=== PATIENT | female | born 1980 | race Caucasian/White ===

== ENCOUNTER 2023-06-01 10:03 | Outpatient (AMB) | payer MEDICAID, SELFPAY ==
--- NOTE | 2023-06-01 10:26 | MHC.OFFVIS ---
Intake Vital Signs 06/01/23 10:27 Weight 281 lb 4 oz BP 141/90 H Blood Pressure Location Lt brachial Position Sitting Respiration 20 Pulse 75 Pulse Source Pulse Oximeter Pulse Oximetry (%) 98 Oxygen Delivery Method Room Air Intake Visit Reasons: CHRONIC PAIN SYNDROME HPI HPI Comments History of Present Illness Details Bria is a very pleasant 42-year-old female who presents the office today for evaluation management of her chronic pain syndrome. She reports today that her most significant pain is in her neck and she would like to focus on this area. Formally under the care of from her pain management in [place], recently moved to this area and is now reestablishing care with providers. Had been undergoing physical therapy which she felt was helping but had to stop due to the move. She would like to reestablish. She had been on chronic opioid therapy, that has been since discontinued. She has currently not taking any medications for the pain. She is tried topical medications, [id number] medications, gabapentin, Lyrica, tizanidine all without improvement. She does states that muscle relaxers have helped her in the past and she would be willing to retry them. She is unable to take nonsteroidal anti-inflammatory medication because she is currently on Coumadin for AFib. She reports having an MRI approximately 6 months ago at [facility], results have been requested but are not available for review today. Patient endorses bilateral hand paresthesias, left isolated to the hand on the right she reports it starts just above the elbow and goes into the hand. Right arm paresthesias are worse with right lateral flexion of the neck. She reports feeling some right hand weakness and states that she does drop things from the hand. She has not been to see a neurosurgeon. Most recent EMG was approximately 5 years ago. Pain is worse with flexion and improves with extension. Pain today is rated as 7/10, constant, worse in the evenings and at night. In terms of muscle damage condition is described as aching, spasming, stabbing, sharp, shooting, tiring, exhausting, cramping, numb, tingling, pins and needles. Pain is negatively impacting patient's enjoyment of life, general activity, mood, normal work, recreational activities, relationships with people, sleeping and walking. Patient is currently on anticoagulants, Coumadin. She denies implantable devices Denies tobacco or alcohol use Currently using THC. 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 Answers questions appropriately. Fully engaged in examination. Skin: warm, dry, intact HEENT: Normocephalic. Hearing intact. Cardiac: External chest normal in appearance. Respiratory: No cough, audible wheezing or stridor. Abdomen: without gross distension. MS: No obvious swelling or deformities. Neurological: Oriented to person, place, time and situation. Thought process intact. Ambulates with the use the cane Psychiatric: Appropriate mood and affect. Good judgment and insight. Cervical Spine: Visible inspection without gross abnormality Moderate tenderness throughout bilateral upper and middle trapezius muscles, right greater than left. Tender to palpation over paraspinal muscles Tender to palpation over cervical vertebrae Patient with decreased cervical ROM in all planes with moderate pain upon lateral rotation and flexion, some improvement in pain with extension.. Spurling compression test negative. Elvey's tension test positive on the right. Lhermitte's test positive on the right BUE strength 5/5 DTR symmetrical and intact bilaterally. 2+ radial pulses. Results Reviewed Results Reviewed: Recent MRI has been requested for review Assessment & Plan Assessment & Plan (1) Chronic pain syndrome: Code(s): G89.4 - Chronic pain syndrome (2) Lumbosacral radiculopathy: Code(s): M54.17 - Radiculopathy, lumbosacral region (3) Cervical radiculopathy: Code(s): M54.12 - Radiculopathy, cervical region (4) Cervicalgia: Code(s): M54.2 - Cervicalgia (5) Myofascial neck pain: Code(s): M54.2 - Cervicalgia Plan Bria is a very pleasant 42-year-old female who presented to the office today for evaluation management of her chronic pain. She would like today's focus to be on her neck pain X-ray cervical spine with flexion-extension ordered for further eval Results of recent MRI have been requested for review Order placed for PT eval and treat Order placed for EMG to evaluate for the reported paresthesia of bilateral upper extremities Will trial methocarbamol 500 mg p.o. t.i.d. as needed All questions and concerns were answered, patient agrees with the plan. Patient will follow up in the office after 3-4 weeks of physical therapy to evaluate response, sooner if needed. Orders: Orders XR cervical spine w flex/ext Today M54.2 - Cervicalgia NE electromyogram (EMG) Today R20.2 - Paresthesia of skin PT Evaluation and Treatment Today M54.2 - Cervicalgia Medications: New methocarbamol Discontinue use of Cyclobenzaprine No driving while taking this medication. Do no take with alcohol or other CHILD CARE NURSE Depressants 500 mg PO TID PRN 90 tabs 2RF muscle spasm Coding Level of Care Code New Pt Level 4 (27920) Diagnoses Chronic pain syndrome G89.4 Lumbosacral radiculopathy M54.17 Cervical radiculopathy M54.12 Cervicalgia M54.2 Myofascial neck pain M54.2
[2023-06-01 10:27] VITALS: BP 141/90; PULSE 75; RESP 20; O2SAT 98
== END 2023-06-01 10:46 | disposition home or self-care (01) ==
PROVIDERS: PCP Student in an Organized Health Care Education/Training Program; Referring Provider Student in an Organized Health Care Education/Training Program; Visit Provider Registered Nurse Emergency
DX: G89.4 Chronic pain syndrome (principal); M54.17 Radiculopathy, lumbosacral region; M54.12 Radiculopathy, cervical region; M54.2 Cervicalgia
CPT/HCPCS: 99204

== ENCOUNTER → 2023-06-01 10:03 | Outpatient (BNVA) | payer MEDICAID, SELFPAY | PROVIDERS: PCP Student in an Organized Health Care Education/Training Program; Referring Provider Student in an Organized Health Care Education/Training Program; Visit Provider Registered Nurse Emergency | DX: G89.4 Chronic pain syndrome (principal); M54.17 Radiculopathy, lumbosacral region; M54.12 Radiculopathy, cervical region; I48.91 Unspecified atrial fibrillation; Z79.01 Long term (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 | CPT/HCPCS: 99212 ==

== ENCOUNTER 2023-06-20 13:01 | Outpatient (REF) | payer MEDICAID, SELFPAY ==
--- NOTE | 2023-06-20 13:07 | EMG_ITS ---
Chief complaint: Neck pain, numbness in both hands Reason for referral: Evaluate for radiculopathy versus Carpal Tunnel Syndrome Referred by: Mckayla Lorenzo NP Procedure done: Bilateral upper extremities NCS/EMG Precautions and/or limitations: On warfarin The limb temperature was monitored continuously and remained between 32-36 degrees C during the performance of the NCS. Nerve Conduction Studies Anti Sensory Summary Table ?Stim Site NR Onset (ms) Norm Onset (ms) Peak (ms) Norm Peak (ms) O-P Amp (?V) Norm O-P Amp Site1 Site2 Delta-0 (ms) Dist (cm) Alok (m/s) Norm Alok (m/s) Left Median Anti Sensory (2nd Digit) Wrist ? 5.5 6.2 <3.6 1.3 >10 Wrist 2nd Digit 5.5 14.0 25 Right Median Anti Sensory (2nd Digit) Wrist ? 5.0 5.7 <3.6 6.1 >10 Wrist 2nd Digit 5.0 14.0 28 Right Radial Anti Sensory (Thumb) Forearm ? 1.5 1.9 <3.1 46.8 Forearm Thumb 1.5 0.0 Left Ulnar Anti Sensory (5th Digit) Wrist ? 2.4 3.2 <3.7 14.6 >15.0 Wrist 5th Digit 2.4 14.0 58 Right Ulnar Anti Sensory (5th Digit) Wrist ? 2.2 2.8 <3.7 19.2 >15.0 Wrist 5th Digit 2.2 14.0 64 Motor Summary Table ?Stim Site NR Onset (ms) Norm Onset (ms) O-P Amp (mV) Norm O-P Amp iAmp (mV) Amp (1st) (%) Site1 Site2 Delta-0 (ms) Dist (cm) Alok (m/s) Norm Alok (m/s) Left Median Motor (Abd Poll Brev) Wrist ? 6.9 <3.9 5.1 >4.5 6.2 100.0 Elbow Wrist 3.6 22.0 61 >45 Elbow ? 10.5 5.1 5.5 100.0 Right Median Motor (Abd Poll Brev) Wrist ? 6.0 <3.9 7.9 >4.5 9.7 100.0 Elbow Wrist 3.9 20.0 51 >45 Elbow ? 9.9 8.3 9.9 105.1 Left Ulnar Motor (Abd Dig Minimi) Wrist ? 2.6 <3.0 10.1 >5 12.1 100.0 B Elbow Wrist 3.0 18.0 60 >45 B Elbow ? 5.6 8.5 9.9 84.2 A Elbow B Elbow 1.9 10.0 53 >45 A Elbow ? 7.5 7.9 9.4 78.2 Right Ulnar Motor (Abd Dig Minimi) Wrist ? 2.5 <3.0 10.4 >5 12.7 100.0 B Elbow Wrist 3.2 19.0 59 >45 B Elbow ? 5.7 11.0 13.5 105.8 A Elbow B Elbow 1.6 10.0 63 >45 A Elbow ? 7.3 10.4 13.1 100.0 EMG ?Side Muscle Nerve Root Ins Act Fibs Psw Amp Dur Poly Recrt Int Pat Comment Right 1stDorInt Ulnar C8-T1 Nml Nml Nml Nml Nml 0 Nml Complete Right FlexCarRad Median C6-7 Nml Nml Nml Nml Nml 0 Nml Complete Right Biceps Musculocut C5-6 Nml Nml Nml Nml Nml 0 Nml Complete Right Triceps Radial C6-7-8 Nml Nml Nml Nml Nml 0 Nml Complete Right Deltoid Axillary C5-6 Nml Nml Nml Nml Nml 0 Nml Complete Left 1stDorInt Ulnar C8-T1 Nml Nml Nml Nml Nml 0 Nml Complete Left FlexCarRad Median C6-7 Nml Nml Nml Nml Nml 0 Nml Complete Left Biceps Musculocut C5-6 Nml Nml Nml Nml Nml 0 Nml Complete Left Triceps Radial C6-7-8 Nml Nml Nml Nml Nml 0 Nml Complete Left Deltoid Axillary C5-6 Nml Nml Nml Nml Nml 0 Nml Complete FINDINGS: Bilateral median motor nerves showed prolonged distal latency, normal amplitude and normal conduction velocity. Bilateral median sensory nerves showed prolonged peak latency and small amplitude. Evidence of possible Jovon Calli anastomosis was seen, which is a normal anatomic variant, left. All other nerves tested were within normal. Concentric needle EMG was performed in selected muscles of the bilateral upper extremities. Study did not reveal signs of electric abnormalities as shown in the table below. IMPRESSION: 1. This is an abnormal study. 2. There is electrodiagnostic evidence for bilateral moderate-severe median neuropathy at the wrist, consistent with carpal tunnel syndrome. 3. There is no electrodiagnostic evidence for ulnar neuropathy, brachial plexopathy, or cervical radiculopathy. 4. Evidence of possible Jovon Calli anastomosis was seen, which is a normal anatomic variant, left. Thank you for your kind referral. Kari Cruz MD, HUMBERTO Board Certified, [place] [employer] and [employer] (ABPMR) Board Certified, [place] Board of Electrodiagnostic Medicine (ABEM) CODIN 79528 x 2 MTDD
[2023-06-20 14:05] LABS: Hematocrit 34.9 % (37.0-47.0); Hemoglobin 10.9 g/dl (12.0-16.0); Mean Corpuscular HGB Conc 31.2 g/dl (31.0-35.0); Mean Corpuscular Hemoglobin 22.8 pg (27.0-33.0); Mean Corpuscular Volume 72.9 fL (80.0-98.0); Mean Platelet Volume 11.5 fL (9.4-12.3); Platelet Count 322 X10*3/uL (160-400); Red Blood Count 4.79 X10*6/uL (4.20-5.50); Red Cell Distribution Width 15.2 % (11.0-16.0); White Blood Count 10.5 X10*3/uL (4.8-10.8)
[2023-06-20 14:12] LABS: Estimated Average Glucose 160 mg/dL; Hemoglobin A1C 152.0625 umol/L; Hemoglobin A1c % 7.2 % (<6.0)
[2023-06-20 14:16] LABS: INTERNATIONAL NORM RATIO 2.3 (0.9-1.1); Prothrombin Time 27.8 SEC (11.1-13.3)
[2023-06-20 14:48] LABS: Alanine Aminotransferase 38 U/L (0-31); Albumin Level 3.9 g/dL (3.5-5.0); Alkaline Phosphatase 68 U/L (39-117); Anion Gap 13 (12-20); Aspartate Amino Transferase 31 U/L (5-31); Bilirubin Total 0.3 mg/dL (0.0-1.0); Blood Urea Nitrogen 17 mg/dL (9-16); Calcium 9.2 mg/dL (8.4-10.2); Carbon Dioxide 22 mmol/L (22-29); Chloride 105 mmol/L (96-108); Estimated Glomerular Filt Rate > 60; Glucose Random 122 mg/dL (60-115); Sodium 136 mmol/L (135-145); TSH reflex Free T4 2.34 uIU/mL (0.32-4.0); Vitamin D 25-OH Total 16.2 ng/mL (>30)
[2023-06-20 15:05] LABS: Folate 9.4 ng/mL (> or = 4.0)
[2023-06-20 16:33] LABS: CT PCR NOT DETECTED (Not Detect.); NG PCR NOT DETECTED (Not Detect.)
[2023-06-20 20:08] LABS: Vitamin B12 501 pg/mL (200-900)
[2023-06-21 04:45] LABS: Syphilis Screen Nonreactive (Nonreactive)
[2023-06-21 05:05] LABS: HBc Num1 0.07 S/CO (0.00-0.79); HBsAGNum1 0.39 S/CO (0.00-0.99); HIV AB/AG Nonreactive (Nonreactive); HIV Num 1 0.06 S/CO (0.00-0.99); Hepatitis B Core Antibody Nonreactive (Nonreactive); Hepatitis B Surface Antigen Negative (Negative); ~HepC Num1 0.14 S/CO (0.00-0.79); ~Hepatitis B Surface Antibody NONREACTIVE (Nonreactive); ~Hepatitis C Antibody Nonreactive (Nonreactive)
== END 2023-06-20 13:02 | disposition home or self-care (01) ==
LOC: HO.NEURO 13:01
PROVIDERS: Student in an Organized Health Care Education/Training Program; Visit Provider Registered Nurse Emergency
DX: R20.2 Paresthesia of skin (principal); I48.0 Paroxysmal atrial fibrillation; Z11.4 Encounter for screening for human immunodeficiency virus [HIV]; Z00.00 Encounter for general adult medical examination without abnormal findings
CPT/HCPCS: 0353U; 80053; 82306; 82607; 82746; 83036; 84443; 85027; 85610; 86704; 86706; 86780; 86803; 87340; 87389; 95886; 95911

== ENCOUNTER → 2023-06-20 13:07 | Outpatient (BNV) | payer MEDICAID, SELFPAY | PROVIDERS: Visit Provider Physical Medicine & Rehabilitation | DX: G56.03 Carpal tunnel syndrome, bilateral upper limbs (principal); G56.13 Other lesions of median nerve, bilateral upper limbs | CPT/HCPCS: 95886; 95911 ==

== ENCOUNTER 2023-06-20 13:10 | Outpatient (REF) | payer MEDICAID, SELFPAY | END 2023-06-20 13:11 | disposition home or self-care (01) | LOC: HO.MAMMO 13:10 | PROVIDERS: Visit Provider Internal Medicine | DX: Z13.89 Encounter for screening for other disorder (principal) ==

== ENCOUNTER 2023-07-05 16:29 | Outpatient (REF) | payer MEDICAID, SELFPAY ==
[2023-07-05 21:54] LABS: Creatinine Urine 178.93 mg/dL; Microalbum/Creatinine Ratio Ur 125.1 ug/mg cr (<30)
== END 2023-07-05 16:30 | disposition home or self-care (01) ==
LOC: HO.HHCLNP 16:29
PROVIDERS: Visit Provider Student in an Organized Health Care Education/Training Program
DX: Z00.00 Encounter for general adult medical examination without abnormal findings (principal)
CPT/HCPCS: 82043; 82570

== ENCOUNTER 2023-08-08 14:50 | Outpatient (AMB) | payer MEDICAID, SELFPAY ==
--- NOTE | 2023-08-08 15:17 | MHC.OFFVIS ---
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 Intake Note: New patient hx afib just moved for [facility] feeling good Hearing Care Professional Required: No Allergies lisinopril Allergy (Mild, Verified 08/08/23 15:32) Cough Medication List - Last Reconciled 08/08/23 by Gallo Ring MD albuterol sulfate 90 mcg/actuation (Ventolin HFA) 2 puffs inhalation Q6H PRN atorvastatin 10 mg PO DAILY bisacodyl 5 mg PO DAILY PRN cholecalciferol (vitamin D3) 50 mcg PO DAILY clonidine HCl 0.2 mg PO BID diltiazem HCl CD 120 mg PO DAILY docusate sodium 100 mg PO BID PRN dulaglutide (Trulicity) 0.75 mg subcut QWEEK ferrous gluconate 324 mg PO 3XW loratadine 10 mg PO DAILY lorazepam 0.5 mg PO QAM losartan 25 mg PO DAILY metoprolol succinate ER 25 mg PO BID omeprazole 20 mg PO DAILY polyethylene glycol 3350 (Gavilax) 17 grams PO DAILY warfarin 1 mg PO DAILY warfarin 2 mg PO DIRECTED HPI Comments Details: Bria is here for consultation regarding atrial fibrillation. Previously followed up at [facility] but she has relocated to this area. Apparently, patient had an episode of atrial fibrillation around 2018 or so. It appears that she underwent cardioversion. Currently, she is on a combination of metoprolol as well as diltiazem. She states she has really has not had any recurrent atrial fibrillation but she does feel some fluttering every so often. Not clear what that is. For anticoagulation, she is on warfarin. There is a history of PCOS/ruptured ovarian follicle and hence it was apparently felt that warfarin might be safer choice as there is availability for reversing agent. Otherwise, history of morbid obesity. She was weighing almost 350 lb in the past when she had the initial atrial fibrillation episode. Subsequently, weight loss surgery and she has lost weight. She still however, the obese side. Many comorbidities. Otherwise, no documented history of coronary disease or myocardial infarction. 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 Social History (Updated 08/08/23 @ 15:35 by AGUILA Waterman) Patient Tobacco Use Status: Never used Tobacco Review of Systems Const Denies chills, Denies fatigue, Denies fever(s), Denies frequent falls, Denies weakness, Denies weight gain and Denies weight loss ENT Denies dizziness Card Denies chest pain, Denies leg edema, Denies lightheadedness, Denies palpitations, Denies dyspnea, Denies dyspnea on exertion, Denies orthopnea and Denies other (loss of consciousness) Resp Denies cough, Denies dyspnea and Denies dyspnea on exertion GI Denies hematochezia and Denies change in stool character Musc Denies abnormal gait, Denies muscle weakness, Denies numbness, Denies radiating pain into limb and Denies tingling Neuro Denies abnormal gait, Denies dizziness, Denies frequent falls, Denies numbness, Denies tingling and Denies weakness Endo Denies fatigue and Denies palpitations Physical Exam Vital Signs: Last Vital Signs Pulse 77 08/08/23 15:29 BP 116/70 08/08/23 15:29 BMI result Body Mass Index 48.1 Const General: comfortable and no acute distress Orientation/consciousness: patient oriented x3 HEENT Other: Unremarkable Head: Yes normal to inspection Neck Neck: Yes normal visual inspection Chest Chest palpation & inspection: normal inspection of the chest Resp Auscultation: clear to auscultation bilaterally Cardio Palpation: normal PMI Heart sounds: S1 normal heart sound present, S2 normal heart sound present, no gallops, no murmurs and no rubs GI Palpation (GI): Soft to palpation Back/Spine/Pelvis Other: unremarkable Skin General skin exam: no rashes or lesions noted Neuro General: patient oriented x3 Extrem General: Yes normal to inspection Psych Mental Status: mental status grossly normal Office Procedures EKG Details: EKG with sinus rhythm at 77/Min; no significant ST-T changes; [place] [id number], Complete Assessment & Plan Assessment & Plan (1) PAF (paroxysmal atrial fibrillation): Code(s): I48.0 - Paroxysmal atrial fibrillation Category: Medical (2) Morbid (severe) obesity due to excess calories: Code(s): E66.01 - Morbid (severe) obesity due to excess calories Category: Medical (3) ANGELA (obstructive sleep apnea): Code(s): G47.33 - Obstructive sleep apnea (adult) (pediatric) Category: Medical Plan Patient with many comorbidities, episode of paroxysmal atrial fibrillation, cardioverted around 6 years ago. She can remain on beta-blockers/diltiazem as she is mostly symptom free. We will check an echocardiogram for cardiac function. There is mention of LVH and prior documentation. As she still has some fluttering, we will check a Holter to see if there is any ectopy or other findings to account for the symptoms. Will also request records from [facility]. Follow-up in a few weeks' time. Orders: Orders CA echo transthoracic complete Today I48.0 - Paroxysmal atrial fibrillation ECG 7 day holter monitor Today I48.0 - Paroxysmal atrial fibrillation, R00.2 - Palpitations Coding Level of Care Code New Pt Level 4 (50369) Diagnoses PAF (paroxysmal atrial fibrillation) I48.0 Morbid (severe) obesity due to excess calories E66.01 ANGELA (obstructive sleep apnea) G47.33 CPT Codes EKG - CPT: 73512-[id number], Complete ([id number])
[2023-08-08 15:29] VITALS: BP 116/70; PULSE 77; BMI 48.1
== END 2023-08-08 16:03 | disposition home or self-care (01) ==
PROVIDERS: PCP Student in an Organized Health Care Education/Training Program; Referring Provider Student in an Organized Health Care Education/Training Program; Visit Provider Internal Medicine
DX: I48.0 Paroxysmal atrial fibrillation (principal); E66.01 Morbid (severe) obesity due to excess calories; G47.33 Obstructive sleep apnea (adult) (pediatric)
CPT/HCPCS: 93010; 99204

== ENCOUNTER → 2023-08-08 14:50 | Outpatient (BNVA) | payer MEDICAID, SELFPAY | PROVIDERS: PCP Student in an Organized Health Care Education/Training Program; Visit Provider Internal Medicine | DX: I48.0 Paroxysmal atrial fibrillation (principal); E66.01 Morbid (severe) obesity due to excess calories; G47.33 Obstructive sleep apnea (adult) (pediatric); Z68.42 Body mass index [BMI] 45.0-49.9, adult | CPT/HCPCS: 93005; 99202 ==

== ENCOUNTER 2023-08-10 10:44 | Outpatient (REF) | payer MEDICAID, SELFPAY ==
--- NOTE | ~2023-08-10 | MM_ITS ---
EXAMINATION: MM SCREENING DIGITAL BREAST TOMOSYNTHESIS, BILATERAL CLINICAL INFORMATION: Screening. Asymptomatic. COMPARISON: Mammography: This is a baseline examination. TECHNIQUE: Digital breast tomosynthesis is performed in both the craniocaudal and mediolateral oblique views along with computer-aided detection (CAD). Synthesized 2D images are generated from the tomosynthesis. FINDINGS: The breasts are almost entirely fatty (ACR BI-RADS breast composition Category a). There are no significant masses, abnormal calcifications, or other abnormalities. MM/MM tomosynthesis screening BI IMPRESSION: No mammographic evidence of malignancy. ASSESSMENT: BI-RADS BI-RADS 1 - Negative RECOMMENDATION: Routine annual mammography screening. 1 year F/U This examination should not preclude the clinical evaluation of a suspicious palpable abnormality. This patient's information was entered into a reminder system with a target due date for their next mammogram.
== END 2023-08-10 10:45 | disposition home or self-care (01) ==
LOC: HO.MAMMO 10:44
PROVIDERS: PCP Student in an Organized Health Care Education/Training Program; Visit Provider Internal Medicine
DX: Z12.31 Encounter for screening mammogram for malignant neoplasm of breast (principal)
CPT/HCPCS: 77063; 77067

== ENCOUNTER → 2023-08-10 10:45 | Outpatient (BNV) | payer MEDICAID, SELFPAY | PROVIDERS: PCP Student in an Organized Health Care Education/Training Program; Visit Provider Radiology Diagnostic Radiology | DX: Z12.31 Encounter for screening mammogram for malignant neoplasm of breast (principal) | CPT/HCPCS: 77063; 77067 ==

== ENCOUNTER → 2023-08-29 13:09 | Outpatient (REF) | payer MEDICAID, SELFPAY ==
--- NOTE | 2023-08-29 13:12 | CA_ITS ---
Transthoracic Echocardiogram Patient (Last, First, Middle): Bria Nevarez N Gender: Female Date of : 1980 Age: 42 Procedure Date: 08/29/2023 Procedure Type: Transthoracic Echocardiogram Location: OP Height: 162.56 cm Weight: 127.01 kg BSA: 2.26 m2 Heart Rate: bpm BP: 140 / 80 mmHg Test Car Driver: TO Referring MD: Gallo Ring MD Coding File Clerk: Garrison Chapman MD Symptoms: I48.0 - Paroxysmal atrial fibrillation Study Quality: Fair/Contrast ECG Rhythm: Sinus Conclusions: - 1. Normal LV ejection fraction of 60 65% with mild asymmetric septal hypertrophy with impaired relaxation filling pattern 2. Moderate mitral calcification with normal cardiac valvular Dopplers 3. No gross pericardial effusion Findings Procedure Information Contrast agent, definity, is being given per protocol without apparent complications. Left Ventricle Normal left ventricular size, thickness, and systolic function. The visually estimated ejection fraction is between 60-65%. Spectral Doppler is indicative of an impaired relaxation filling pattern. E/E prime ratio is between 8 and 15 consistent with indeterminate filling pressures. There is mild septal asymmetric hypertrophy. Right Ventricle Normal right ventricular cavity size and systolic function. Atria The left atrium is likely dilated. There is no evidence of interatrial shunt. The right atrium is normal in size. Aortic Valve Normal aortic valve structure and function. There is no aortic valve stenosis. There is no aortic valve regurgitation. Mitral Valve There is mild anterior and moderate posterior mitral leaflet thickening. There is moderate mitral annular calcification. There is trace mitral valve regurgitation. There is no mitral valve stenosis. Pulmonic Valve The pulmonic valve was not well visualized. Tricuspid Valve Likely normal tricuspid valve structure and function. Tricuspid regurgitation envelope is inadequate for calculation of right ventricular systolic pressure. Normal right atrial pressure. Great Vessels The pulmonary artery was not well visualized. There is no dilatation of the ascending aorta measuring 3.30 cm. Small plaque is seen in the sino tubular ridge. Venous The inferior vena cava is normal in size and collapses greater than 50% with inspiration. Pericardium/Pleural There is no evidence of pericardial effusion. Prior Study Comparison No prior study available for comparison. Measurements 2D Linear Measurements IVSd: 1.37 0.6-0.9/0.6-1.0 cm LVIDd: 4.30 3.9-5.3/4.2-5.9 cm LVIDd Index: 1.90 2.4-3.2/2.2-3.1 cm/m2 LVIDs: 2.72 2.0-3.6 cm LVPWd: 1.06 0.7-1.1 cm LA Diam: 3.90 2.7-3.8/3.0-4.0 cm LAIDs Index: 1.73 1.5-2.3 cm/m2 LV Mass: 234.33 67-162/88-224 g LV Mass Index: 103.68 43-95/49-115 g/m2 LVOT Diam: 2.30 3.0+(-)1.3 cm Mitral Valve MV VTI: 0.29 MV Pk Alok: 0.95 MV Mn Alok: 0.65 MV Pk Grad: 4.00 MV Mn Grad: 2.00 MV Pk E: 0.67 MV PK A: 0.86 MV Decel Time: 203.00 E/A: 0.80 E'Lateral: 8.27 E'Medial: 4.24 E/E' Med: 15.80 E/E' Lat: 8.10 PHT: 60.00 MVA PHT: 3.67 MVA Continuity: 4.19 Decel Schleicher: 3.29 Aortic Valve AoV Pk Alok: 1.43 AoV Mn Alok: 1.07 AoV VTI: 0.33 AoV Pk Grad: 8.00 Aov Mn Grad: 5.00 HANNA Cont.VTI: 3.67 LVOT LVOT Pk Alok: 1.53 LVOT Mn Alok: 0.97 LVOT VTI: 0.29 LVOT Pk Grad: 9.00 LVOT Mn Grad: 5.00 LVOT Diam: 2.30 LVOT Area: 4.15 Diastolic Function MV Pk E: 0.67 MV Pk A: 0.86 E/A: 0.80 E'Medial: 4.24 E/E' Med: 15.80 E' Laterial: 8.27 E/E' Lat: 8.10 Right Ventricle TAPSE (mm): 24.40 TVS' Alok: 11.70 Tricuspid Valve TR Pk Alok: 2.21 TR Pk Grad: 20.00 Great Vessels Aorta Sinus of Valsalva: 3.06 2.0-3.[address] Ridge: 2.36 1.7-3.4 cm Ao Asc: 3.30 2.1-3.4 cm Updated in Other Vendor System with Status of Final Garrison Chapman MD electronically signed on 08/30/2023 8:33:07 AM with status of Final
--- NOTE | 2023-08-29 13:12 | HM_ITS ---
* Total monitoring time 2 days. * Underlying rhythm is sinus with an average rate of 82/Min. About 13% of the time, rate > 100/Min. * Rare supraventricular ectopy. * Rare ventricular ectopy. * No significant pauses or AV blocks. * No patient markers or diary events. MTDD
== END ==
LOC: HO.CARD 13:09
PROVIDERS: PCP Student in an Organized Health Care Education/Training Program; Visit Provider Internal Medicine
DX: R00.2 Palpitations (principal); I48.0 Paroxysmal atrial fibrillation
CPT/HCPCS: 93242; 93306; Q9957

== ENCOUNTER → 2023-08-29 13:12 | Outpatient (BNV) | payer MEDICAID, SELFPAY | PROVIDERS: PCP Student in an Organized Health Care Education/Training Program; Visit Provider Internal Medicine Cardiovascular Disease | DX: I49.3 Ventricular premature depolarization (principal) | CPT/HCPCS: 93227; 93306 ==

== ENCOUNTER 2023-08-30 14:00 | Outpatient (RCR) | payer MEDICAID, SELFPAY ==
--- NOTE | 2023-08-08 14:09 | MHC.PT.EP ---
[facility] [place] Office [place] Office [place] Office [address] Yumiko Sena [address] [phone] F: [phone] F: [phone] F: [phone] F: [phone] Physical Therapy Plan of Care Date of Evaluation: 08/08/23 Date of Surgery: n/a Diagnosis: cervicalgia myofascial neck pain Assessment: Patient is a 42 year old female presenting to PT with complaints of pain in her neck. Pt reports onset of pain began 1 year ago due to tripping on a loose floor board. She presents today with impairments in pain, cervical ROM, posture, tenderness to palpation. Pt's current occupation is none, with baseline physical activities including ADLs. Pt expresses half-way goal of reducing pain, and is motivated to work towards this in PT. Clinical presentation today is most consistent with signs and sx associated with neck pain and pt will benefit from skilled PT 2 week x 4 weeks to address the following problems and impairments noted upon evaluation: pain, cervical ROM, posture, tenderness to palpation. These problems limit the patient with the following functional activities: ADLs. The prescribed treatment plan of care is medically necessary. Co-morbidities of afib on coumadin and DM were identified and taken into considerations of plan of care. Pt was educated on HEP, role of PT, prognosis, POC. Frequency and Duration: The patient will be seen 2 x week x 4 weeks Short Term Goals: Pt will demonstrate improved cervical ROM in available range to be with minimal to no pain in 2 weeks. Pt will require min to no cues for posture throughout session in 2 weeks when completing exercises. Pt will demonstrate pain at rest to <5/10 in 2 weeks for improved QOL. Clinic Office Manager Goals: Pt will demonstrate improved NDI score by 10% in 4 weeks for improved functional mobility. Pt will demonstrate improved ability to complete ADLs with min to no pain in 4 weeks for return to PLOF. Treatment Plan: Modalities to reduce pain, spasms and effusion. Manual therapy to restore motion and function. Therapeutic exercise to improve strength and flexibility. Neuromuscular re-education for posture and balance. Therapeutic activities to return to functional activities of daily living. Electronically signed by: Aisha Ezequiel, PT, DPT, ATC Please sign and return to therapist. Thank you for your referral.
--- NOTE | 2023-10-02 08:30 | MHC.PT.DC ---
[facility] [place] Office [place] [facility] [place] Office [address] Yumiko Sena [address] [facility] [phone] F: [phone] F: [phone] F: [phone] F: [phone] Physical Therapy Discharge Report Diagnosis: cervicalgia myofascial neck pain Date of Surgery: n/a Date of Evaluation: 08/08/23 Date of Discharge: 10/02/23 Treatments to Date: 3 Cancellations to Date: 1 No Shows to Date: 1 Discharge Status: Visit Non-compliance Discharge Summary: Pt has not returned to skilled PT in >30 days and therefore to be d/c. Electronically signed by: Aisha Nieves, PT, DPT, ATC Please sign and return to therapist. Thank you for your referral.
== END 2023-10-02 08:30 | disposition home or self-care (01) ==
LOC: HO.PTCHIC 14:00
PROVIDERS: PCP Student in an Organized Health Care Education/Training Program; Visit Provider Registered Nurse Emergency
DX: M54.2 Cervicalgia (principal)
CPT/HCPCS: 97110; 97162

== ENCOUNTER 2023-08-31 13:14 | Outpatient (AMB) | payer MEDICAID, SELFPAY ==
[2023-08-31 13:15] VITALS: BP 112/55; BMI 48.1
--- NOTE | 2023-08-31 13:15 | MHC.OFFVIS ---
Vital Signs 08/31/23 13:15 Height 5 ft 4 in Weight 280 lb BMI 48.1 BP 112/55 L Blood Pressure Location Rt brachial Position Sitting Intake Visit Reasons: CHRONIC PAIN SYDROME Allergies lisinopril Allergy (Mild, Verified 08/08/23 15:32) Cough HPI Comments Details: Patient presents back to the office today for follow up neck pain. EMG results reviewed, results as per below MRI CS reviewed, results as per below Patient reports no change in her spasms with methocarbamol. Reports she has tried ?all? muscle relaxers in the past, none have provided relief. She finds some relief with THC, has her medical marijuana card. Currently going to physical therapy, has been attending for 3-4 weeks. States does not feel like it is helping and sometimes feels even worse She is not interested in acupuncture or injections at this time. Has an aversion to needles. Would be willing to try massage, unsure if this is covered by her insurance. She has never tried a TENS unit Tried gabapentin in the past but states did not feel any relief. Was not on it long enough for them to increase dose to try and reach therapeutic effect. She would be willing to retry. Prior: Bria is a very pleasant 42-year-old female who presents the office today for evaluation management of her chronic pain syndrome. She reports today that her most significant pain is in her neck and she would like to focus on this area. Formally under the care of from her pain management in [place], recently moved to this area and is now reestablishing care with providers. Had been undergoing physical therapy which she felt was helping but had to stop due to the move. She would like to reestablish. She had been on chronic opioid therapy, that has been since discontinued. She has currently not taking any medications for the pain. She is tried topical medications, [id number] medications, gabapentin, Lyrica, tizanidine all without improvement. She does states that muscle relaxers have helped her in the past and she would be willing to retry them. She is unable to take nonsteroidal anti-inflammatory medication because she is currently on Coumadin for AFib. She reports having an MRI approximately 6 months ago at [facility], results have been requested but are not available for review today. Patient endorses bilateral hand paresthesias, left isolated to the hand on the right she reports it starts just above the elbow and goes into the hand. Right arm paresthesias are worse with right lateral flexion of the neck. She reports feeling some right hand weakness and states that she does drop things from the hand. She has not been to see a neurosurgeon. Most recent EMG was approximately 5 years ago. Pain is worse with flexion and improves with extension. Pain today is rated as 7/10, constant, worse in the evenings and at night. In terms of muscle damage condition is described as aching, spasming, stabbing, sharp, shooting, tiring, exhausting, cramping, numb, tingling, pins and needles. Pain is negatively impacting patient's enjoyment of life, general activity, mood, normal work, recreational activities, relationships with people, sleeping and walking. Patient is currently on anticoagulants, Coumadin. She denies implantable devices Denies tobacco or alcohol use Currently using THC. 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 Social History (Updated 08/08/23 @ 15:35 by AGUILA Waterman) Patient Tobacco Use Status: Never used Tobacco Review of Systems Const All systems reviewed & are unremarkable except as noted in HPI and below Physical Exam Vital Signs: Last Vital Signs BP 112/55 L 08/31/23 13:15 BMI result Body Mass Index 48.1 General: awake, alert, oriented. Answers questions appropriately. Fully engaged in examination. Skin: warm, dry, intact HEENT: Normocephalic. Hearing intact. Cardiac: External chest normal in appearance. Respiratory: No cough, audible wheezing or stridor. Abdomen: without gross distension. MS: No obvious swelling or deformities. Neurological: Oriented to person, place, time and situation. Thought process intact. Ambulates with the use the cane Psychiatric: Appropriate mood and affect. Good judgment and insight. Cervical Spine: Moderate tenderness throughout bilateral upper and middle trapezius muscles, right greater than left. Tender to palpation over cervical vertebrae and paraspinal muscles Degree cervical ROM in all planes Results Reviewed Results Reviewed: 06/20/23 EMG FINDINGS: Bilateral median motor nerves showed prolonged distal latency, normal amplitude and normal conduction velocity. Bilateral median sensory nerves showed prolonged peak latency and small amplitude. Evidence of possible Jovon Calli anastomosis was seen, which is a normal anatomic variant, left. All other nerves tested were within normal. Concentric needle EMG was performed in selected muscles of the bilateral upper extremities. Study did not reveal signs of electric abnormalities as shown in the table below. IMPRESSION: 1. This is an abnormal study. 2. There is electrodiagnostic evidence for bilateral moderate-severe median neuropathy at the wrist, consistent with carpal tunnel syndrome. 3. There is no electrodiagnostic evidence for ulnar neuropathy, brachial plexopathy, or cervical radiculopathy. 4. Evidence of possible Jovon Calli anastomosis was seen, which is a normal anatomic variant, left. Assessment & Plan Assessment & Plan (1) Bilateral carpal tunnel syndrome: Code(s): G56.03 - Carpal tunnel syndrome, bilateral upper limbs Category: Medical (2) Chronic pain syndrome: Code(s): G89.4 - Chronic pain syndrome Category: Medical (3) Lumbosacral radiculopathy: Code(s): M54.17 - Radiculopathy, lumbosacral region Category: Medical (4) Cervical radiculopathy: Code(s): M54.12 - Radiculopathy, cervical region Category: Medical (5) Cervicalgia: Code(s): M54.2 - Cervicalgia Category: Medical (6) Myofascial neck pain: Code(s): M54.2 - Cervicalgia Category: Medical Plan EMG reviewed, notable for bilateral carpal tunnel. Referral placed for Dr. Don, orthopedics at [facility] Continue with physical therapy Patient would benefit from referral to massage therapy, she will call her insurance company to discuss if this is a covered service. Patient to contact the office with covered provider and referral will be sent. TENS unit ordered, patient was provided with pamphlet and instructions on use. She has aware that the company will call her to facilitate delivery of the device and supplies Gabapentin 300 mg p.o. as directed. One capsule at bedtime x1 week, then 2 capsules daily x1 week, then increase to 3 capsules daily All questions and concerns were answered, patient agrees with the plan. Patient will follow up in the office in 2 months, sooner if needed. Orders: Referrals Orthopedics Referral G56.03 - Carpal tunnel syndrome, bilateral upper limbs Medications: New gabapentin On capsule daily at bedtime x1 week, then 2 capsules daily x1 week, then increase to 3 capsules daily 300 mg PO TID 90 caps 3RF Coding Level of Care Code Est Pt Level 4 (82150) Diagnoses Bilateral carpal tunnel syndrome G56.03 Chronic pain syndrome G89.4 Lumbosacral radiculopathy M54.17 Cervical radiculopathy M54.12 Cervicalgia M54.2 Myofascial neck pain M54.2
== END 2023-08-31 13:48 | disposition home or self-care (01) ==
PROVIDERS: PCP Student in an Organized Health Care Education/Training Program; Visit Provider Registered Nurse Emergency
DX: G89.4 Chronic pain syndrome (principal); G56.03 Carpal tunnel syndrome, bilateral upper limbs; M54.17 Radiculopathy, lumbosacral region; M54.12 Radiculopathy, cervical region; M54.2 Cervicalgia
CPT/HCPCS: 99214

== ENCOUNTER → 2023-08-31 13:14 | Outpatient (BNVA) | payer MEDICAID, SELFPAY | PROVIDERS: PCP Student in an Organized Health Care Education/Training Program; Visit Provider Registered Nurse Emergency | DX: G56.03 Carpal tunnel syndrome, bilateral upper limbs (principal); M54.17 Radiculopathy, lumbosacral region; M54.12 Radiculopathy, cervical region; M54.2 Cervicalgia; G89.4 Chronic pain syndrome | CPT/HCPCS: 99212 ==

== ENCOUNTER 2023-09-03 13:44 | Outpatient (AMB) | payer MEDICAID, SELFPAY ==
--- NOTE | 2023-08-31 15:55 | MHC.OFFVISCO ---
Intake Vital Signs 09/03/23 15:00 BP 128/80 Blood Pressure Location Lt brachial Position Sitting Pulse 78 Intake Visit Reasons: Anticoagulation Nail Maker Required: No Allergies lisinopril Allergy (Mild, Verified 09/03/23 14:00) Cough Medication List - Last Reconciled 09/03/23 by Candi Stone, RN albuterol sulfate 90 mcg/actuation (Ventolin HFA) 2 puffs inhalation Q6H PRN atorvastatin 10 mg PO DAILY bisacodyl 5 mg PO DAILY PRN cholecalciferol (vitamin D3) 50 mcg PO DAILY clonidine HCl 0.2 mg PO BID diltiazem HCl CD 120 mg PO DAILY docusate sodium 100 mg PO BID PRN dulaglutide (Trulicity) 0.75 mg subcut QWEEK ferrous gluconate 324 mg PO 3XW gabapentin 300 mg PO TID loratadine 10 mg PO DAILY lorazepam 0.5 mg PO QAM losartan 25 mg PO DAILY metoprolol succinate ER 25 mg PO BID omeprazole 20 mg PO DAILY polyethylene glycol 3350 (Gavilax) 17 grams PO DAILY warfarin 1 mg PO DAILY warfarin 2 mg PO DIRECTED Is last menstrual period known: Yes Post menopausal: No Patient : No Nursing Note Pt to [facility] with use of cane for old injury to Left ACL and Lumbar/Sacral nerve injury. This is pt's 1st visit to [facility] Anticoag clinic. History reviewed. Admission assessment completed. [facility] education packet reviewed and given to pt. Questions answered and pt verbalized good understanding of admission information. INR: 3.4 out of therapeutic range of 2-3 Medications and supplements reviewed Pt states she uses CBD daily for pain. Denies any signs and symptoms of bleeding or bruising or clotting. Bleeding, bruising, clotting discussed Nutritional guidance given to have a serving of food from the list that lowers the INR. Food list reviewed and given to pt. Dose: pt's usual dose of 1mg on Mondays and 2mg all other days F/U INR: 1 week Patient verbalizes understanding of instructions given Anti-Coag Initial Assessment Social Hx Patient Tobacco Use Status: Former Tobacco user Smoking packs per day: 0.5 alcohol intake: never Housing: House Housing Other:: [employer] OPER[employer] AT HOME, LIVES WITH BOYFRIEND, SON AND BOYFRIEND'S SON current occupation: UNEMPLOYED current occupational exposures/hazards: No Fall risk assessment: No Falls in past year Cardiovascular Hx: HTN and Arrhythmias Lung Disease HX: Asthma Endocrine Hx: Diabetes Musculoskeletal Hx: Osteoporosis Blood Disorder Hx: Anemia and Hyperlipidemia Hx: Kidney Disease Neurological Hx: Migraines/Headaches Cancer HX: No Psych. Illness/Depression: Yes Is last menstrual period known: Yes Post menopausal: No Patient : No Surgeries: ACL LEFT LEG RECONSTRUCTION, GASTRIC SLEEVE IN [place] 5 YA Anti-Coag. Education Record Teaching Recipient: Patient What is the easiest way to learn: Reading, Listening, Picture, Demonstration and Education Packet Barriers to Learning Identified: Other: Nail Maker Required: No Readiness To Learn: Excellent Teaching Methods: Demonstration, Discussion, Handout, Protocol and Teach Back Response to Teaching: Verbalize Understanding Re-Education needs: Reinforce Content Education Intervention/Brief Description of Teaching 1. Able to state reason for taking Warfarin: Yes 2. Able to state Pain Management techniques: Yes 3. Able to state action of Warfarin.: Yes Able to state current dose, pill color, how and when Warfarin to be taken: Yes Able to identify signs of bleeding &/or clotting: Yes 4. Able to identify need to keep diet consistent in regard to vitamin K intake: Yes Able to state restriction on alcohol: Yes 5. Able to state need for compliance with PT/INR testing: Yes Describes rationale for carrying ID and wearing Medic Alert bracelet: Yes Patient instructed to monitor for excess bruising or signs/symptoms of clotting or bleeding: Yes 6. Able to state that there are drugs that interact with Warfin: Yes 7. Able to state the need to seek medical attention when illness/injury occur.: Yes Describes the need to avoid activities with high risk of injury: Yes 8. Able to state duration of treatment: Yes 9. Demonstrates understanding of notifying all providers of pending dental surgical, or other invasive procedures: Yes 10. Able to state Home Care instructions Questionnaires HAS-BLED Does the patient had uncontrolled Hypertension?: No Does the patient have renal disease?: Yes Does the patient have liver disease?: No Does the patient have a history of stroke?: No Has the patient had major bleeding or predisposition to bleeding?: No Does the patient have labile INRs?: No Is the patient over 65 years of age?: Yes Is the patient on medications that gives them a predisposition to bleeding?: Yes Does the patient use alcohol?: No HAS-BLED Score: 3 CHADSVASC Age: <65 Gender: Female Does the patient have a history of CHF?: No Does the patient have a history of Hypertension?: Yes Does the patient have a history of Stroke/TIA/Thromboembolism?: No Does the patient have a history of Diabetes?: Yes CHADS VACS Score: 3 Terri Prediction Score Rsk VTE Active Cancer: No Previous VTE, excluding superficial vein thrombosis: No Reduced mobility: Yes Already known Thrombophilic Condition: Yes With-in last month Trauma and/or Surgery: No Elderly 70 year or older: No Heart and/or Respiratory Failure: No Acute Myocardial infarction and/or Ischemic Stroke: No Acute Infection and/or Rheumatologic Disorder: No Obesity (BMI 30 or greater): Yes Ongoing Hormonal Treatment: No Score: 7 Terri Score less than 4; Low Risk of VTE Terri Score 4 or greater; High Risk of VTE Coding Level of Care Code New Patient Level 2 Diagnoses Current use of anticoagulant therapy Z79.01 Results AMB INR Fingerstick AMB INR Fingerstick 3.4 Last Edit by Candi Stone RN on 09/03/23 14:42 INTERFACE DELAY Assessment & Plan Assessment & Plan (1) Current use of anticoagulant therapy: Code(s): Z79.01 - ocean transportation intermediary (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 Orders: Orders AMB INR 09/03/23 Z79.01 - senior living (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
[2023-09-03 14:40] LABS: Prothrombin Time Whole Bld POC 40.3 sec (11.1-13.5); ~PT, ~INR - Anti Coag Clinic 3.4 (0.9-1.1)
[2023-09-03 15:00] VITALS: BP 128/80; PULSE 78
== END 2023-09-03 16:01 | disposition home or self-care (01) ==
LOC: HO.ACS 13:44
PROVIDERS: PCP Student in an Organized Health Care Education/Training Program; Visit Provider Internal Medicine
DX: Z79.01 Long term (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 (principal)

== ENCOUNTER → 2023-09-03 13:44 | Outpatient (BNVA) | payer MEDICAID, SELFPAY | PROVIDERS: PCP Student in an Organized Health Care Education/Training Program; Visit Provider Internal Medicine | DX: I48.91 Unspecified atrial fibrillation (principal); Z79.01 Long term (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; Z51.81 Encounter for therapeutic drug level monitoring | CPT/HCPCS: 85610; 99202 ==

== ENCOUNTER 2023-09-10 13:26 | Outpatient (AMB) | payer MEDICAID, SELFPAY ==
--- NOTE | 2023-09-10 13:39 | MHC.OFFVISCO ---
Intake Intake Visit Reasons: Anticoagulation Allergies lisinopril Allergy (Mild, Verified 09/10/23 13:32) Cough Medication List - Last Reconciled 09/10/23 by Ramona Jonse RN albuterol sulfate 90 mcg/actuation (Ventolin HFA) 2 puffs inhalation Q6H PRN atorvastatin 10 mg PO DAILY bisacodyl 5 mg PO DAILY PRN cholecalciferol (vitamin D3) 50 mcg PO DAILY clonidine HCl 0.2 mg PO BID diltiazem HCl CD 120 mg PO DAILY docusate sodium 100 mg PO BID PRN dulaglutide (Trulicity) 0.75 mg subcut QWEEK ferrous gluconate 324 mg PO 3XW gabapentin 300 mg PO TID loratadine 10 mg PO DAILY lorazepam 0.5 mg PO QAM losartan 25 mg PO DAILY metoprolol succinate ER 25 mg PO BID omeprazole 20 mg PO DAILY polyethylene glycol 3350 (Gavilax) 17 grams PO DAILY warfarin 2 mg See Protocol PO DIRECTED Nursing Note INR: 2.1- in therapeutic range pt states missed 2 doses of warfarin over the weekend due to refill issues pt states has been on same dose of warfarin for 2 years Medications and supplements reviewed No changes in health, diet, medications, or supplements, Denies any signs and symptoms of bleeding or bruising or clotting. Bleeding, bruising, clotting discussed Nutritional guidance given Dose: take 2mg today then 2mg x 6, 1mg x 1 F/U INR: 1 week Patient verbalizes understanding of instructions given Anti-Coag Initial Assessment Social Hx Patient Tobacco Use Status: Former Tobacco user Smoking packs per day: 0.5 alcohol intake: never Cardiovascular Hx: HTN and Arrhythmias Lung Disease HX: Asthma Endocrine Hx: Diabetes Musculoskeletal Hx: Osteoporosis Blood Disorder Hx: Anemia and Hyperlipidemia Hx: Kidney Disease Neurological Hx: Migraines/Headaches Cancer HX: No Psych. Illness/Depression: Yes Coding Level of Care Code Est Patient Level 1 Diagnoses Current use of anticoagulant therapy Z79.01 Results AMB INR Fingerstick AMB INR Fingerstick 2.1 Last Edit by Ramona Jones RN on 09/10/23 13:41 Assessment & Plan Assessment & Plan (1) Current use of anticoagulant therapy: Code(s): Z79.01 - rn long term care (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 Category: Medical
[2023-09-11 08:02] LABS: Prothrombin Time Whole Bld POC 25.2 sec (11.1-13.5); ~PT, ~INR - Anti Coag Clinic 2.1 (0.9-1.1)
== END 2023-09-10 13:47 | disposition home or self-care (01) ==
LOC: HO.ACS 13:26
PROVIDERS: PCP Student in an Organized Health Care Education/Training Program; Visit Provider Internal Medicine
DX: Z79.01 Long term (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 (principal)

== ENCOUNTER → 2023-09-10 13:26 | Outpatient (BNVA) | payer MEDICAID, SELFPAY | PROVIDERS: PCP Student in an Organized Health Care Education/Training Program; Visit Provider Internal Medicine | DX: I48.91 Unspecified atrial fibrillation (principal); Z51.81 Encounter for therapeutic drug level monitoring; Z79.01 Long term (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 | CPT/HCPCS: 85610; 99211 ==

== ENCOUNTER 2023-09-17 13:36 | Outpatient (AMB) | payer MEDICAID, SELFPAY ==
[2023-09-17 13:48] LABS: Prothrombin Time Whole Bld POC 33.2 sec (11.1-13.5); ~PT, ~INR - Anti Coag Clinic 2.8 (0.9-1.1)
--- NOTE | 2023-09-17 13:53 | MHC.OFFVISCO ---
Intake Intake Visit Reasons: Anticoagulation Allergies lisinopril Allergy (Mild, Verified 09/17/23 13:43) Cough Medication List - Last Reconciled 09/17/23 by Candi Stone RN albuterol sulfate 90 mcg/actuation (Ventolin HFA) 2 puffs inhalation Q6H PRN atorvastatin 10 mg PO DAILY bisacodyl 5 mg PO DAILY PRN cholecalciferol (vitamin D3) 50 mcg PO DAILY clonidine HCl 0.2 mg PO BID diltiazem HCl CD 120 mg PO DAILY docusate sodium 100 mg PO BID PRN dulaglutide (Trulicity) 0.75 mg subcut QWEEK ferrous gluconate 324 mg PO 3XW gabapentin 300 mg PO TID loratadine 10 mg PO DAILY lorazepam 0.5 mg PO QAM losartan 25 mg PO DAILY metoprolol succinate ER 25 mg PO BID omeprazole 20 mg PO DAILY polyethylene glycol 3350 (Gavilax) 17 grams PO DAILY warfarin 2 mg See Protocol PO DIRECTED Nursing Note INR: 2.8 in therapeutic range of 2-3 Medications and supplements reviewed No changes in health, diet, medications, or supplements, Denies any signs and symptoms of bleeding or bruising or clotting. Bleeding, bruising, clotting discussed Nutritional guidance given to continue to balance reds and greens Dose: 2mg X 6 days and 1 mg X 1 day F/U INR: 3 weeks Patient verbalizes understanding of instructions given Anti-Coag Initial Assessment Social Hx Patient Tobacco Use Status: Former Tobacco user Smoking packs per day: 0.5 alcohol intake: never Cardiovascular Hx: HTN and Arrhythmias Lung Disease HX: Asthma Endocrine Hx: Diabetes Musculoskeletal Hx: Osteoporosis Blood Disorder Hx: Anemia and Hyperlipidemia Hx: Kidney Disease Neurological Hx: Migraines/Headaches Cancer HX: No Psych. Illness/Depression: Yes Coding Level of Care Code Est Patient Level 1 Diagnoses Current use of anticoagulant therapy Z79.01 Assessment & Plan Assessment & Plan (1) Current use of anticoagulant therapy: Code(s): Z79.01 - prison (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 Category: Medical
== END 2023-09-17 13:56 | disposition home or self-care (01) ==
LOC: HO.ACS 13:36
PROVIDERS: PCP Student in an Organized Health Care Education/Training Program; Visit Provider Internal Medicine
DX: Z79.01 Long term (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 (principal)

== ENCOUNTER → 2023-09-17 13:36 | Outpatient (BNVA) | payer MEDICAID, SELFPAY | PROVIDERS: PCP Student in an Organized Health Care Education/Training Program; Visit Provider Internal Medicine | DX: I48.91 Unspecified atrial fibrillation (principal); Z51.81 Encounter for therapeutic drug level monitoring; Z79.01 Long term (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 | CPT/HCPCS: 85610; 99211 ==

== ENCOUNTER 2023-10-01 14:05 | Outpatient (AMB) | payer MEDICAID, SELFPAY ==
[2023-10-01 14:14] LABS: Prothrombin Time Whole Bld POC 40.7 sec (11.1-13.5); ~PT, ~INR - Anti Coag Clinic 3.4 (0.9-1.1)
--- NOTE | 2023-10-01 14:37 | MHC.OFFVISCO ---
Intake Intake Visit Reasons: Anticoagulation Allergies lisinopril Allergy (Mild, Verified 10/01/23 14:06) Cough Medication List - Last Reconciled 10/01/23 by Li Dumont RN albuterol sulfate 90 mcg/actuation (Ventolin HFA) 2 puffs inhalation Q6H PRN ammonium lactate 12% topical BEDTIME atorvastatin 10 mg PO DAILY bisacodyl 5 mg PO DAILY PRN cholecalciferol (vitamin D3) 50 mcg PO DAILY clonidine HCl 0.2 mg PO BID clotrimazole 1% appl topical DAILY diltiazem HCl CD 120 mg PO DAILY docusate sodium 100 mg PO BID PRN dulaglutide (Trulicity) 0.75 mg subcut QWEEK ferrous gluconate 324 mg PO 3XW gabapentin 300 mg PO TID loratadine 10 mg PO DAILY lorazepam 0.5 mg PO QAM losartan 25 mg PO DAILY metoprolol succinate ER 25 mg PO BID omeprazole 20 mg PO DAILY polyethylene glycol 3350 (Gavilax) 17 grams PO DAILY warfarin 2 mg See Protocol PO DIRECTED Nursing Note INR 3.4 out of therapeutic range Medications and supplements reviewed Patient status: well, however states she has antifungal cream rx to treat her feet, possible chance they may be raising her INR discussed pt status of her Afib Medications or supplements: clotrimazole Diet: good- only eats raw greens Denies any signs and symptoms of bleeding or clotting or unusual bruising Bleeding, bruising, clotting discussed Nutritional guidance given: have another green today to tomorrow Dose: decrease weekly dose 1mg x 2 days/ 2mg x 5 days F/U INR Date : 1 week?? Patient verbalizing understanding of instructions given. Anti-Coag Initial Assessment Social Hx Patient Tobacco Use Status: Former Tobacco user Smoking packs per day: 0.5 alcohol intake: never Cardiovascular Hx: HTN and Arrhythmias Lung Disease HX: Asthma Endocrine Hx: Diabetes Musculoskeletal Hx: Osteoporosis Blood Disorder Hx: Anemia and Hyperlipidemia Hx: Kidney Disease Neurological Hx: Migraines/Headaches Cancer HX: No Psych. Illness/Depression: Yes Coding Level of Care Code Est Patient Level 1 Diagnoses Current use of anticoagulant therapy Z79.01 Results AMB INR Fingerstick AMB INR Fingerstick 3.4 Last Edit by Li Dumont RN on 10/01/23 14:18 manual entry Assessment & Plan Assessment & Plan (1) Current use of anticoagulant therapy: Code(s): Z79.01 - [facility] (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 Category: Medical
== END 2023-10-01 14:42 | disposition home or self-care (01) ==
LOC: HO.ACS 14:05
PROVIDERS: PCP Student in an Organized Health Care Education/Training Program; Visit Provider Internal Medicine
DX: Z79.01 Long term (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 (principal)

== ENCOUNTER → 2023-10-01 14:05 | Outpatient (BNVA) | payer MEDICAID, SELFPAY | PROVIDERS: PCP Student in an Organized Health Care Education/Training Program; Visit Provider Internal Medicine | DX: I48.91 Unspecified atrial fibrillation (principal); Z79.01 Long term (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; Z51.81 Encounter for therapeutic drug level monitoring | CPT/HCPCS: 85610; 99211 ==

== ENCOUNTER 2023-10-08 14:16 | Outpatient (AMB) | payer MEDICAID, SELFPAY ==
[2023-10-08 14:26] LABS: ~PT, ~INR - Anti Coag Clinic 2.9 (0.9-1.1)
--- NOTE | 2023-10-08 14:36 | MHC.OFFVISCO ---
Intake Intake Visit Reasons: Anticoagulation Allergies lisinopril Allergy (Mild, Verified 10/08/23 14:17) Cough Medication List - Last Reconciled 10/08/23 by Ewa Blanton RN albuterol sulfate 90 mcg/actuation (Ventolin HFA) 2 puffs inhalation Q6H PRN ammonium lactate 12% topical BEDTIME atorvastatin 10 mg PO DAILY bisacodyl 5 mg PO DAILY PRN cholecalciferol (vitamin D3) 50 mcg PO DAILY clonidine HCl 0.2 mg PO BID clotrimazole 1% appl topical DAILY diltiazem HCl CD 120 mg PO DAILY docusate sodium 100 mg PO BID PRN dulaglutide (Trulicity) 0.75 mg subcut QWEEK ferrous gluconate 324 mg PO 3XW gabapentin 300 mg PO TID loratadine 10 mg PO DAILY lorazepam 0.5 mg PO QAM losartan 25 mg PO DAILY metoprolol succinate ER 25 mg PO BID omeprazole 20 mg PO DAILY polyethylene glycol 3350 (Gavilax) 17 grams PO DAILY warfarin 2 mg See Protocol PO DIRECTED Nursing Note NO CP,SOB,DIET/MED CHANGES,FALLS OR SX OF BLEEDING. CONTINUE PRESENT DOSE AND FOLLOW-UP IN 2 WEEKS GOOD UNDERSTNDING OF DOSING INSTR. Anti-Coag Initial Assessment Social Hx Patient Tobacco Use Status: Former Tobacco user Smoking packs per day: 0.5 alcohol intake: never Cardiovascular Hx: HTN and Arrhythmias Lung Disease HX: Asthma Endocrine Hx: Diabetes Musculoskeletal Hx: Osteoporosis Blood Disorder Hx: Anemia and Hyperlipidemia Hx: Kidney Disease Neurological Hx: Migraines/Headaches Cancer HX: No Psych. Illness/Depression: Yes Coding Level of Care Code Est Patient Level 1 Diagnoses Current use of anticoagulant therapy Z79.01 Results AMB INR Fingerstick AMB INR Fingerstick 2.9 Last Edit by Ewa Blanton RN on 10/08/23 14:25 Assessment & Plan Assessment & Plan (1) Current use of anticoagulant therapy: Code(s): Z79.01 - [facility] (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 Category: Medical
== END 2023-10-08 14:38 | disposition home or self-care (01) ==
LOC: HO.ACS 14:16
PROVIDERS: PCP Student in an Organized Health Care Education/Training Program; Visit Provider Internal Medicine
DX: Z79.01 Long term (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 (principal)

== ENCOUNTER → 2023-10-08 14:16 | Outpatient (BNVA) | payer MEDICAID, SELFPAY | PROVIDERS: PCP Student in an Organized Health Care Education/Training Program; Visit Provider Internal Medicine | DX: I48.91 Unspecified atrial fibrillation (principal); Z79.01 Long term (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; Z51.81 Encounter for therapeutic drug level monitoring | CPT/HCPCS: 85610; 99211 ==

== ENCOUNTER 2023-10-19 13:33 | Outpatient (AMB) | payer MEDICAID, SELFPAY ==
--- NOTE | 2023-10-19 13:35 | MHC.OFFVIS ---
Vital Signs 10/19/23 13:37 Handedness Right Intake Visit Reasons: New Pt - B/L hand pain Intake Note: Bria is a 42 year old right hand dominant female who presents today as a new patient for a evaluation of her bilateral hand numbness/pain. EMG done on 06/20/23. Right is worse than left hand. Patient expresses she tripped on floor board and put her hands out infront of her to stop her from falling last year in May and since this injury she has been having numbness, tingling and sharp pains in both hands. She expresses she has lose of function. Holding objects, gripping objects such as steering wheel, lifting, pushing activities such as pushing off chair and grasping has become difficult due to her symptoms. After 2-3 min of walking she feels sharp pains in her hands, she says she drops her cane multiple times a day from this. She expresses she feels she can not open her hands correctly and if she raising her hands up she has loss of sensation. She went school shopping for her son a couple of days ago and says even looking through the rack of clothes causes symptoms to exacerbate. Worse in the morning for her, says she can barely move hands when she wakes up. Some days she reports her index and thumb get stuck and she is unable to straighten them out. She would like to review her EMG today and discuss treatment options. Allergies lisinopril Allergy (Mild, Verified 10/22/23 14:10) Cough HPI HPI New Pt - B/L hand pain: Details: Patient is a 42-year-old female who presents for follow-up of bilateral hand pain with associated numbness and tingling, with EMG done. Patient reports that her symptoms are intermittent, but daily, worse at night. Patient reports that ?a while ago?, she fell on bilateral outstretched hands has been experiencing pain, numbness, tingling ever since. 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 However, the patient reports that she would need to sanaz over any sort of surgical intervention. 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 Neuro: Median, ulnar, radial nerves motor and sensory intact and sensation is normal to the tips of all digits. Vascular: Cap refill brisk Pain: Patient reports no pain to palpation at this time Patient reports mild discomfort with range of motion ROM: With encouragement, patient is able to make a full closed fist Good finger cross Skin: No lacerations or abrasions. General: No ecchymosis, erythema, or evidence of infection. Negative Tinel's at the wrist bilaterally Psych: Appears grossly normal Affect normal Attitude cooperative Assessment & Plan Assessment & Plan (1) Bilateral carpal tunnel syndrome: Code(s): G56.03 - Carpal tunnel syndrome, bilateral upper limbs Category: Medical (2) Stiffness of joints of both hands: Code(s): M25.641 - Stiffness of right hand, not elsewhere classified; M25.642 - Stiffness of left hand, not elsewhere classified Category: Medical Plan 1. Bilateral carpal tunnel syndrome, moderate to severe Symptoms intermittent, but daily, worse at night At this time, the patient is informed that the best treatment option available to her right now for her carpal tunnel syndrome is surgical intervention However, the patient reports that she needs to ?sanaz over surgery with her family and BUSINESS EMPLOYMENT SPECIALIST to determine if this is feasible for her Patient is educated on the potential risks of waiting to pursue surgical intervention of carpal tunnel syndrome Patient states understanding of these risks Patient will follow-up in 2-3 weeks for repeat assessment and discussion of further treatment options, sooner with any acute concerns 2. Bilateral hand stiffness and asian studies professor strength loss Patient is referred to occupational hand therapy for range of motion and strengthening of bilateral hands Patient is amenable to this We can discuss stiffness and loss of asian studies professor strength at follow-up visit for discussion of carpal tunnel syndrome treatment Orders: Orders OT Evaluation and Treatment 10/19/23 M25.641 - Stiffness of right hand, not elsewhere classified, M25.642 - Stiffness of left hand, not elsewhere classified Coding Level of Care Code New Pt Level 3 (88259) Diagnoses Bilateral carpal tunnel syndrome G56.03 Stiffness of joints of both hands M25.641; M25.642
== END 2023-10-19 14:32 | disposition home or self-care (01) ==
PROVIDERS: PCP Student in an Organized Health Care Education/Training Program
DX: G56.03 Carpal tunnel syndrome, bilateral upper limbs (principal); M25.641 Stiffness of right hand, not elsewhere classified; M25.642 Stiffness of left hand, not elsewhere classified
CPT/HCPCS: 99203

== ENCOUNTER → 2023-10-19 13:33 | Outpatient (BNVA) | payer MEDICAID, SELFPAY | PROVIDERS: PCP Student in an Organized Health Care Education/Training Program | DX: G56.03 Carpal tunnel syndrome, bilateral upper limbs (principal); M25.641 Stiffness of right hand, not elsewhere classified; M25.642 Stiffness of left hand, not elsewhere classified; R20.0 Anesthesia of skin; R20.2 Paresthesia of skin | CPT/HCPCS: 99212 ==

== ENCOUNTER 2023-10-22 14:07 | Outpatient (AMB) | payer MEDICAID, SELFPAY ==
[2023-10-22 14:18] LABS: Prothrombin Time Whole Bld POC 34.1 sec (11.1-13.5); ~PT, ~INR - Anti Coag Clinic 2.8 (0.9-1.1)
--- NOTE | 2023-10-22 14:25 | MHC.OFFVISCO ---
Intake Intake Visit Reasons: Anticoagulation Allergies lisinopril Allergy (Mild, Verified 10/22/23 14:10) Cough Medication List - Last Reconciled 10/22/23 by Li Dumont RN albuterol sulfate 90 mcg/actuation (Ventolin HFA) 2 puffs inhalation Q6H PRN ammonium lactate 12% topical BEDTIME atorvastatin 10 mg PO DAILY bisacodyl 5 mg PO DAILY PRN cholecalciferol (vitamin D3) 50 mcg PO DAILY clonidine HCl 0.2 mg PO BID clotrimazole 1% appl topical DAILY diltiazem HCl CD 120 mg PO DAILY docusate sodium 100 mg PO BID PRN dulaglutide (Trulicity) 0.75 mg subcut QWEEK ferrous gluconate 324 mg PO 3XW gabapentin 300 mg PO TID loratadine 10 mg PO DAILY lorazepam 0.5 mg PO QAM losartan 25 mg PO DAILY metoprolol succinate ER 25 mg PO BID omeprazole 20 mg PO DAILY polyethylene glycol 3350 (Gavilax) 17 grams PO DAILY warfarin 2 mg See Protocol PO DIRECTED Nursing Note INR: 2.8 in therapeutic range Medications and supplements reviewed No changes in health, diet, medications, or supplements, Denies any signs and symptoms of bleeding or bruising or clotting. Bleeding, bruising, clotting discussed Nutritional guidance given - CONT TO EAT A MIX OF FRUITS AND VEGETABLES Dose: KEEP SAME DOSE 1MG X 2 DAYS/ 2MG X 5 DAYS F/U INR: 2 WEEKS -IF THERAPEUTIC GO 3 WEEKS IF PT FEEL COMFORTALBE Patient verbalizes understanding of instructions given Anti-Coag Initial Assessment Social Hx Patient Tobacco Use Status: Former Tobacco user Smoking packs per day: 0.5 alcohol intake: never Cardiovascular Hx: HTN and Arrhythmias Lung Disease HX: Asthma Endocrine Hx: Diabetes Musculoskeletal Hx: Osteoporosis Blood Disorder Hx: Anemia and Hyperlipidemia Hx: Kidney Disease Neurological Hx: Migraines/Headaches Cancer HX: No Psych. Illness/Depression: Yes Coding Level of Care Code Est Patient Level 1 Diagnoses Current use of anticoagulant therapy Z79.01 Assessment & Plan Assessment & Plan (1) Current use of anticoagulant therapy: Code(s): Z79.01 - correction (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 Category: Medical Medications: Changed From gabapentin On capsule daily at bedtime x1 week, then 2 capsules daily x1 week, then increase to 3 capsules daily 300 mg PO TID 90 caps 3RF To gabapentin pt taking only PRN for extreme pain 300 mg PO TID
== END 2023-10-22 14:28 | disposition home or self-care (01) ==
LOC: HO.ACS 14:07
PROVIDERS: PCP Student in an Organized Health Care Education/Training Program; Visit Provider Internal Medicine
DX: Z79.01 Long term (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 (principal)

== ENCOUNTER → 2023-10-22 14:07 | Outpatient (BNVA) | payer MEDICAID, SELFPAY | PROVIDERS: PCP Student in an Organized Health Care Education/Training Program; Visit Provider Internal Medicine | DX: I48.91 Unspecified atrial fibrillation (principal); Z79.01 Long term (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; Z51.81 Encounter for therapeutic drug level monitoring | CPT/HCPCS: 85610; 99211 ==

== ENCOUNTER 2023-11-01 11:09 | Outpatient (RCR) | payer MEDICAID, SELFPAY ==
--- NOTE | 2023-11-01 16:16 | MHC.OT.EP ---
[address] [phone] Occupational Therapy Plan of Care Patient Name: Bria Nevarez Date of Evaluation: 11/01/23 Diagnosis: Pain Location: Pain Score: 8 Pain Scale Used: Numeric (0 - 10) Aggravating Factors: gripping, use of hands Alleviating Factors: moist heat Assessment: Pt is a 42 yr. old R hand dominant female who reports B sx's of numbness and tingling in hands and digits intermittently for a few years. She then reports falling w/ B hands stretched out in May of 2022 and reported an increase in the numbness/ tingling/ and pain. She most recently saw the PA and she had a nerve conduction study which was positive for median nerve entrapment in B hands. The PA consulted her in regards to surgery but the pt. would like to try conservative tx's. She reports purchasing night splints recently but she has not began wearing them, but she will. 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 Thank you once again for your referral.
== END 2024-06-27 14:26 | disposition home or self-care (01) ==
LOC: HO.OT 11:09
PROVIDERS: PCP Student in an Organized Health Care Education/Training Program
DX: M25.641 Stiffness of right hand, not elsewhere classified (principal); M25.642 Stiffness of left hand, not elsewhere classified
CPT/HCPCS: 97110; 97166; 97535

== ENCOUNTER 2023-11-01 12:39 | Outpatient (AMB) | payer MEDICAID, SELFPAY ==
--- NOTE | 2023-11-01 12:56 | MHC.OFFVIS ---
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 Accompanied by: Self / Same As Patient Allergies lisinopril Allergy (Mild, Verified 10/22/23 14:10) Cough Medication List - Last Reconciled 11/01/23 by Gallo Ring MD albuterol sulfate 90 mcg/actuation (Ventolin HFA) 2 puffs inhalation Q6H PRN ammonium lactate 12% topical BEDTIME atorvastatin 10 mg PO DAILY bisacodyl 5 mg PO DAILY PRN cholecalciferol (vitamin D3) 50 mcg PO DAILY clonidine HCl 0.2 mg PO BID clotrimazole 1% appl topical DAILY diltiazem HCl CD 120 mg PO DAILY docusate sodium 100 mg PO BID PRN dulaglutide (Trulicity) 0.75 mg subcut QWEEK ferrous gluconate 324 mg PO 3XW gabapentin 300 mg PO TID PRN loratadine 10 mg PO DAILY lorazepam 0.5 mg PO QAM PRN losartan 25 mg PO DAILY metoprolol succinate ER 25 mg PO BID omeprazole 20 mg PO DAILY polyethylene glycol 3350 (Gavilax) 17 grams PO DAILY warfarin 2 mg See Protocol PO DIRECTED HPI Comments Details: Bria returns for follow-up. Previously followed up at [facility] but she has relocated to this area. Apparently, patient had an episode of atrial fibrillation around 2018 or so. It appears that she underwent cardioversion. Currently, she is on a combination of metoprolol as well as diltiazem. No recurrence of atrial fibrillation but she states that she is feeling some fluttering in the chest which feels different from atrial fibrillation. Few days ago, she had an episode where she had some combination fluttering, chest tightness, shortness of breath and weakness. She stated that it did not feel like her usual atrial fibrillation. With regard to anticoagulation, she is on warfarin. There is a history of PCOS/ruptured ovarian follicle and hence it was apparently felt that warfarin might be safer choice as there is availability for reversing agent. Otherwise, history of morbid obesity. She was weighing almost 350 lb in the past when she had the initial atrial fibrillation episode. Subsequently, weight loss surgery and she has lost weight. She still however, the obese side. Many comorbidities. Otherwise, no documented history of coronary disease or myocardial infarction. 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 WITH BOYFRIEND, SON AND BOYFRIEND'S SON Alcohol intake: never Patient Tobacco Use Status: Former Tobacco user Cigarette Packs Per Day: 0.5 Current occupation: UNEMPLOYED Current occupational exposures/hazards: No Review of Systems Const Denies chills, Denies fatigue, Denies fever(s), Denies weight gain and Denies weight loss ENT Denies dizziness Card Denies chest pain, Denies leg edema, Denies lightheadedness, Denies palpitations, Denies dyspnea on exertion, Denies orthopnea and Denies other Resp Denies cough and Denies dyspnea on exertion GI Denies hematochezia and Denies change in stool character Musc Denies abnormal gait, Denies muscle weakness, Denies numbness, Denies radiating pain into limb and Denies tingling Neuro Denies abnormal gait, Denies dizziness, Denies numbness and Denies tingling Endo Denies fatigue and Denies palpitations Physical Exam Vital Signs: Last Vital Signs Pulse 75 11/01/23 12:57 BP 128/90 H 11/01/23 12:57 BMI result Body Mass Index 49.0 Const General: comfortable and no acute distress Orientation/consciousness: patient oriented x3 HEENT Other: Unremarkable Head: Yes normal to inspection Neck Neck: Yes normal visual inspection Chest Chest palpation & inspection: normal inspection of the chest Resp Auscultation: clear to auscultation bilaterally Cardio Palpation: normal PMI Heart sounds: S1 normal heart sound present, S2 normal heart sound present, no gallops, no murmurs and no rubs GI Palpation (GI): Soft to palpation Back/Spine/Pelvis Other: unremarkable Skin General skin exam: no rashes or lesions noted Neuro General: patient oriented x3 Extrem General: Yes normal to inspection Psych Mental Status: mental status grossly normal Assessment & Plan Assessment & Plan (1) PAF (paroxysmal atrial fibrillation): Code(s): I48.0 - Paroxysmal atrial fibrillation Category: Medical (2) Morbid (severe) obesity due to excess calories: Code(s): E66.01 - Morbid (severe) obesity due to excess calories Category: Medical (3) ANGELA (obstructive sleep apnea): Code(s): G47.33 - Obstructive sleep apnea (adult) (pediatric) Category: Medical Plan In the echocardiogram, LVEF 60-60%. Moderate mitral annular calcification. Small plaque in the sinotubular ridge. In the Holter monitor, underlying rhythm is sinus with sinus tachycardia but otherwise unremarkable. Overall, well controlled atrial fibrillation; due to other complaints of palpitations that do not feel like atrial fibrillation, chest tightness, shortness of breath and weakness episode, we will get another Holter for [address] coronary CT for any significant CAD. Follow-up after the above. Orders: Orders ECG 14 day holter monitor Today I48.0 - Paroxysmal atrial fibrillation, R00.2 - Palpitations CT Cardiac Coronary Angio Today I25.10 - Atherosclerotic heart disease of [place] coronary artery without angina pectoris, I48.0 - Paroxysmal atrial fibrillation Basic Metabolic Panel Today I48.0 - Paroxysmal atrial fibrillation Coding Level of Care Code Est Pt Level 4 (37376) Diagnoses PAF (paroxysmal atrial fibrillation) I48.0 Morbid (severe) obesity due to excess calories E66.01 ANGELA (obstructive sleep apnea) G47.33
[2023-11-01 12:57] VITALS: BP 128/90; PULSE 75; BMI 49.0
== END 2023-11-01 13:37 | disposition home or self-care (01) ==
PROVIDERS: PCP Student in an Organized Health Care Education/Training Program; Referring Provider Student in an Organized Health Care Education/Training Program; Visit Provider Internal Medicine
DX: I48.0 Paroxysmal atrial fibrillation (principal); E66.01 Morbid (severe) obesity due to excess calories; G47.33 Obstructive sleep apnea (adult) (pediatric)
CPT/HCPCS: 99214

== ENCOUNTER → 2023-11-01 12:39 | Outpatient (BNVA) | payer MEDICAID, SELFPAY | PROVIDERS: PCP Student in an Organized Health Care Education/Training Program; Visit Provider Internal Medicine | DX: I48.0 Paroxysmal atrial fibrillation (principal); E66.01 Morbid (severe) obesity due to excess calories; G47.33 Obstructive sleep apnea (adult) (pediatric); Z68.42 Body mass index [BMI] 45.0-49.9, adult | CPT/HCPCS: 99212 ==

== ENCOUNTER 2023-11-05 14:05 | Outpatient (AMB) | payer MEDICAID, SELFPAY ==
[2023-11-05 14:13] LABS: Prothrombin Time Whole Bld POC 36.4 sec (11.1-13.5)
--- NOTE | 2023-11-05 14:21 | MHC.OFFVISCO ---
Intake Intake Visit Reasons: Anticoagulation Allergies lisinopril Allergy (Mild, Verified 11/05/23 14:07) Cough Medication List - Last Reconciled 11/05/23 by Candi Stone RN albuterol sulfate 90 mcg/actuation (Ventolin HFA) 2 puffs inhalation Q6H PRN ammonium lactate 12% topical BEDTIME atorvastatin 10 mg PO DAILY bisacodyl 5 mg PO DAILY PRN cholecalciferol (vitamin D3) 50 mcg PO DAILY clonidine HCl 0.2 mg PO BID clotrimazole 1% appl topical DAILY diltiazem HCl CD 120 mg PO DAILY docusate sodium 100 mg PO BID PRN dulaglutide (Trulicity) 0.75 mg subcut QWEEK ferrous gluconate 324 mg PO 3XW gabapentin 300 mg PO TID PRN loratadine 10 mg PO DAILY lorazepam 0.5 mg PO QAM PRN losartan 25 mg PO DAILY metoprolol succinate ER 25 mg PO BID omeprazole 20 mg PO DAILY polyethylene glycol 3350 (Gavilax) 17 grams PO DAILY warfarin 2 mg See Protocol PO DIRECTED Nursing Note Pt to ACS with use of a cane. INR: 3.0 in therapeutic range of 2-3 Medications and supplements reviewed No changes in health, diet, medications, or supplements, Denies any signs and symptoms of bleeding or bruising or clotting. Bleeding, bruising, clotting discussed Nutritional guidance given Dose: 2mg X 5 days and 1mg X 2 days F/U INR: 3 weeks Patient verbalizes understanding of instructions given Anti-Coag Initial Assessment Social Hx Patient Tobacco Use Status: Former Tobacco user Smoking packs per day: 0.5 alcohol intake: never Cardiovascular Hx: HTN and Arrhythmias Lung Disease HX: Asthma Endocrine Hx: Diabetes Musculoskeletal Hx: Osteoporosis Blood Disorder Hx: Anemia and Hyperlipidemia Hx: Kidney Disease Neurological Hx: Migraines/Headaches Cancer HX: No Psych. 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
== END 2023-11-05 14:34 | disposition home or self-care (01) ==
LOC: HO.ACS 14:05
PROVIDERS: PCP Student in an Organized Health Care Education/Training Program; Visit Provider Internal Medicine
DX: Z79.01 Long term (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 (principal)

== ENCOUNTER → 2023-11-05 14:05 | Outpatient (BNVA) | payer MEDICAID, SELFPAY | PROVIDERS: PCP Student in an Organized Health Care Education/Training Program; Visit Provider Internal Medicine | DX: I48.91 Unspecified atrial fibrillation (principal); Z79.01 Long term (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; Z51.81 Encounter for therapeutic drug level monitoring | CPT/HCPCS: 85610; 99211 ==

== ENCOUNTER 2023-11-16 14:39 | Outpatient (AMB) | payer MEDICAID, SELFPAY ==
[2023-11-16 14:45] VITALS: BMI 48.9
--- NOTE | 2023-11-16 14:45 | A.OFFVIS_ITS ---
Vital Signs 11/16/23 14:45 Height 5 ft 4 in Weight 285 lb BMI 48.9 Intake Visit Reasons: OV- B/L hand pain-follow up Intake Note: Bria is a 42 year old right hand dominant female who presents today for a follow up evaluation of bilateral hand numbness and pain. Patient reports she only went to one OT session and is planning on keeping upcoming appointments. Patient reports ongoing numbness and pain. Denies locking on fingers. Allergies lisinopril Allergy (Mild, Verified 11/26/23 13:53) Cough HPI HPI OV- B/L hand pain-follow up: Details: Patient is a 43-year-old female who presents for follow-up evaluation for bilateral hand pain and carpal tunnel syndrome. Patient reports that she has only been to 1 occupational therapy appointment, but she plans on keeping all future appointments. Patient also continues to endorse intermittent but daily numbness and tingling of bilateral hands, consistent with EMG findings of carpal tunnel syndrome. However, the patient reports that she is still very hesitant about any potential surgical intervention, and then she will still need to have discussions with her family in order to decide if she would like to proceed this. No other acute complaints or concerns at this time. 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 No thenar or intrinsic wasting. Good APB muscle firing and good finger cross. Vascular: Capillary refill brisk. ROM: Patient can make a fist and extend all their digits, but expresses discomfort when doing so Skin: No lacerations or abrasions noted. General: No ecchymosis. No erythema or evidence of infection. Negative Tinel's test bilaterally Assessment & Plan Assessment & Plan (1) Bilateral carpal tunnel syndrome: Code(s): G56.03 - Carpal tunnel syndrome, bilateral upper limbs Category: Medical (2) Stiffness of joints of both hands: Code(s): M25.641 - Stiffness of right hand, not elsewhere classified; M25.642 - Stiffness of left hand, not elsewhere classified Category: Medical Plan 1. Carpal tunnel syndrome, bilateral Symptoms intermittent, but daily, worse at night Patient is educated about this condition Patient is educated about the typical recovery course At this time, patient is once again informed that surgical intervention is likely the only way her symptoms will be permanently alleviated, but the patient once again expresses trepidation at surgical intervention Patient states that she has people she needs to care for at home, and states that the recovery period for this surgery would make this incredibly difficult Patient states that she needs some time to discuss with friends and family members Patient is educated on the potential side effects of waiting too long for surgery, namely dense numbness that will not resolve even with surgery Patient understands these risks 2. Bilateral hand stiffness Patient will continue going to occupational therapy for range of motion, strengthening, stabilization of bilateral hands in order to improve range of motion and functional capacity of bilateral hands Patient is amenable to this plan Patient will follow-up in 3 months for repeat assessment and discussion of potential surgical intervention at that time, sooner with any acute concerns Coding Level of Care Code Est Pt Level 3 (33377) Diagnoses Bilateral carpal tunnel syndrome G56.03 Stiffness of joints of both hands M25.641; M25.642
== END 2023-11-16 15:02 | disposition home or self-care (01) ==
PROVIDERS: PCP Student in an Organized Health Care Education/Training Program
DX: G56.03 Carpal tunnel syndrome, bilateral upper limbs (principal); M25.641 Stiffness of right hand, not elsewhere classified; M25.642 Stiffness of left hand, not elsewhere classified
CPT/HCPCS: 99213

== ENCOUNTER → 2023-11-16 14:39 | Outpatient (BNVA) | payer MEDICAID, SELFPAY | PROVIDERS: PCP Student in an Organized Health Care Education/Training Program | DX: G56.03 Carpal tunnel syndrome, bilateral upper limbs (principal); M25.641 Stiffness of right hand, not elsewhere classified; M25.642 Stiffness of left hand, not elsewhere classified | CPT/HCPCS: 99212 ==

== ENCOUNTER → 2023-11-26 13:05 | Outpatient (REF) | payer MEDICAID, SELFPAY ==
--- NOTE | 2023-11-26 13:07 | HM_ITS ---
* Total monitoring time 12 days 14 hours. * Underlying rhythm is sinus with an average ventricular rate of 85/Min. * Frequent ventricular ectopy. Rare couplets, isolated triplet; bigeminy and trigeminy. One run of 17 beats, monomorphic. * No significant pauses or high-grade AV blocks. * Patient markers used in association with sinus rhythm and PVCs. * No diary events. MTDD
== END ==
LOC: HO.CARD 13:05
PROVIDERS: PCP Student in an Organized Health Care Education/Training Program; Visit Provider Internal Medicine
DX: R00.2 Palpitations (principal); I48.0 Paroxysmal atrial fibrillation
CPT/HCPCS: 85610; 93246; 99211

== ENCOUNTER → 2023-11-26 13:07 | Outpatient (BNV) | payer MEDICAID, SELFPAY | PROVIDERS: PCP Student in an Organized Health Care Education/Training Program; Visit Provider Internal Medicine | DX: I49.3 Ventricular premature depolarization (principal) | CPT/HCPCS: 93248 ==

== ENCOUNTER 2023-11-26 13:20 | Outpatient (AMB) | payer MEDICAID, SELFPAY ==
--- NOTE | 2023-11-26 14:02 | MHC.OFFVISCO ---
Intake Intake Visit Reasons: Anticoagulation Allergies lisinopril Allergy (Mild, Verified 11/26/23 13:53) Cough Medication List - Last Reconciled 11/26/23 by Ramona Jones RN albuterol sulfate 90 mcg/actuation (Ventolin HFA) 2 puffs inhalation Q6H PRN ammonium lactate 12% topical BEDTIME atorvastatin 10 mg PO DAILY bisacodyl 5 mg PO DAILY PRN cholecalciferol (vitamin D3) 50 mcg PO DAILY clonidine HCl 0.2 mg PO BID clotrimazole 1% appl topical DAILY diltiazem HCl CD 120 mg PO DAILY docusate sodium 100 mg PO BID PRN dulaglutide (Trulicity) 1.5 mg subcut QWEEK duloxetine 20 mg PO DAILY ferrous gluconate 324 mg PO 3XW gabapentin 300 mg PO TID PRN linaclotide (Linzess) 145 mcg PO QAM loratadine 10 mg PO DAILY lorazepam 0.5 mg PO QAM PRN losartan 25 mg PO DAILY metoprolol succinate ER 25 mg PO BID omeprazole 20 mg PO DAILY polyethylene glycol 3350 (Gavilax) 17 grams PO DAILY warfarin 2 mg See Protocol PO DIRECTED Nursing Note INR: 2.0- in therapeutic range of 2-3 Medications and supplements reviewed- trulicity increased to 1.5- no interaction per micromedex, linaclotide for constipation- no interaction per micromedex, duloxetine- pt states not taking- aware will raise inr will call acs if starts this medication. pt has holtor monitor for 14 days No changes in health, diet, medications, or supplements, Denies any signs and symptoms of bleeding or bruising or clotting. Bleeding, bruising, clotting discussed Nutritional guidance given - no greens for 2 days, eat reds to raise Dose: 1mg x 2, 2mg x 5 F/U INR: 2 weeks Patient verbalizes understanding of instructions given Anti-Coag Initial Assessment Social Hx Patient Tobacco Use Status: Former Tobacco user Smoking packs per day: 0.5 alcohol intake: never Cardiovascular Hx: HTN and Arrhythmias Lung Disease HX: Asthma Endocrine Hx: Diabetes Musculoskeletal Hx: Osteoporosis Blood Disorder Hx: Anemia and Hyperlipidemia Hx: Kidney Disease Neurological Hx: Migraines/Headaches Cancer HX: No Psych. 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
[2023-11-26 14:03] LABS: Prothrombin Time Whole Bld POC 24.1 sec (11.1-13.5)
== END 2023-11-26 14:12 | disposition home or self-care (01) ==
LOC: HO.ACS 13:20
PROVIDERS: PCP Student in an Organized Health Care Education/Training Program; Visit Provider Internal Medicine
DX: Z79.01 Long term (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 (principal)

== ENCOUNTER 2023-12-04 17:59 | Outpatient (REF) | payer MEDICAID, SELFPAY ==
[2023-12-07 07:37] LABS: HPV mRNA E6/E7 Not Detected (Not Detected)
== END 2023-12-04 18:00 | disposition home or self-care (01) ==
LOC: HO.LNP 17:59
PROVIDERS: Visit Provider Advanced Practice Midwife
DX: Z12.4 Encounter for screening for malignant neoplasm of cervix (principal)
CPT/HCPCS: 87624; 88175

== ENCOUNTER 2024-01-21 11:03 | Outpatient (AMB) | payer MEDICAID, SELFPAY ==
[2024-01-21 11:31] LABS: Prothrombin Time Whole Bld POC 14.9 sec (11.1-13.5); ~PT, ~INR - Anti Coag Clinic 1.2 (0.9-1.1)
--- NOTE | 2024-01-21 11:38 | MHC.OFFVISCO ---
Intake Intake Visit Reasons: Anticoagulation Allergies lisinopril Allergy (Mild, Verified 01/21/24 11:12) Cough Medication List - Last Reconciled 01/21/24 by Candi Stone RN albuterol sulfate 90 mcg/actuation (Ventolin HFA) 2 puffs inhalation Q6H PRN ammonium lactate 12% topical BEDTIME atorvastatin 10 mg PO DAILY bisacodyl 5 mg PO DAILY PRN cholecalciferol (vitamin D3) 50 mcg PO DAILY clonidine HCl 0.2 mg PO BID clotrimazole 1% appl topical DAILY diltiazem HCl CD 120 mg PO DAILY docusate sodium 100 mg PO BID PRN dulaglutide (Trulicity) 1.5 mg subcut QWEEK ferrous gluconate 324 mg PO 3XW linaclotide (Linzess) 145 mcg PO QAM loratadine 10 mg PO DAILY lorazepam 0.5 mg PO QAM PRN losartan 25 mg PO DAILY metoprolol succinate ER 25 mg PO BID omeprazole 20 mg PO DAILY polyethylene glycol 3350 (Gavilax) 17 grams PO DAILY warfarin 2 mg See Protocol PO DIRECTED Nursing Note Pt to [facility] today after several missed appointments. Last seen on 11/26/23. INR: 1.2 out of therapeutic range of 2-3 All medications and supplements reviewed and updated. Patient status: States she is tired of all her appointments. States her medical issues are affecting her drive or will to be compliant with appointments. She is also involved in legal procedings with a former landlord that she says is stressing her. Medications or supplements: changes made Diet: usual diet for pt Denies any signs and symptoms of bleeding or clotting or unusual bruising Bleeding, bruising, clotting discussed Nutritional guidance given: to avoid greens today and to have a serving of foods from the list that raises the INR. Food list reviewed. Dose: 4mg today and tomorrow (usual 2mg) and then 2mg the next day (usual 1mg) The dose pt states she was taking was not the same as last documented by [facility]. Pt states she was taking 2mg X 6 days and 1mg on Wednesdays. [facility] last documented 2mg X 5 days with 1mg on Mon and . F/U INR Date : 01/24/24 Patient verbalizing understanding of instructions given. T/C to PCP's office to report critical INR. Spoke to Magdalena Rodriguez INR of 1.2, dosing plan and next retest date given to her. Anti-Coag Initial Assessment Social Hx Patient Tobacco Use Status: Former Tobacco user Smoking packs per day: 0.5 alcohol intake: never Cardiovascular Hx: HTN and Arrhythmias Lung Disease HX: Asthma Endocrine Hx: Diabetes Musculoskeletal Hx: Osteoporosis Blood Disorder Hx: Anemia and Hyperlipidemia Hx: Kidney Disease Neurological Hx: Migraines/Headaches Cancer HX: No Psych. Illness/Depression: Yes Coding Level of Care Code Est Patient Level 1 Diagnoses Current use of anticoagulant therapy Z79.01 Results AMB INR Fingerstick AMB INR Fingerstick 1.2 Last Edit by Candi Stone RN on 01/21/24 11:32 interface delay Assessment & Plan Assessment & Plan (1) Current use of anticoagulant therapy: Code(s): Z79.01 - residential (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 Category: Medical
== END 2024-01-21 11:52 | disposition home or self-care (01) ==
LOC: HO.ACS 11:03
PROVIDERS: PCP Student in an Organized Health Care Education/Training Program; Visit Provider Internal Medicine
DX: Z79.01 Long term (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 (principal)

== ENCOUNTER → 2024-01-21 11:03 | Outpatient (BNVA) | payer MEDICAID, SELFPAY | PROVIDERS: PCP Student in an Organized Health Care Education/Training Program; Visit Provider Internal Medicine | DX: I48.91 Unspecified atrial fibrillation (principal); Z79.01 Long term (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; Z51.81 Encounter for therapeutic drug level monitoring | CPT/HCPCS: 85610; 99211 ==

== ENCOUNTER 2024-01-24 13:41 | Outpatient (AMB) | payer MEDICAID, SELFPAY ==
[2024-01-24 13:47] LABS: Prothrombin Time Whole Bld POC 20.5 sec (11.1-13.5); ~PT, ~INR - Anti Coag Clinic 1.7 (0.9-1.1)
--- NOTE | 2024-01-24 13:57 | MHC.OFFVISCO ---
Intake Intake Visit Reasons: Anticoagulation Allergies lisinopril Allergy (Mild, Verified 01/24/24 13:43) Cough Medication List - Last Reconciled 01/24/24 by Candi Stone, MANUEL albuterol sulfate 90 mcg/actuation (Ventolin HFA) 2 puffs inhalation Q6H PRN ammonium lactate 12% topical BEDTIME atorvastatin 10 mg PO DAILY bisacodyl 5 mg PO DAILY PRN cholecalciferol (vitamin D3) 50 mcg PO DAILY clonidine HCl 0.2 mg PO BID clotrimazole 1% appl topical DAILY diltiazem HCl CD 120 mg PO DAILY docusate sodium 100 mg PO BID PRN dulaglutide (Trulicity) 1.5 mg subcut QWEEK ferrous gluconate 324 mg PO 3XW linaclotide (Linzess) 145 mcg PO QAM loratadine 10 mg PO DAILY lorazepam 0.5 mg PO QAM PRN losartan 25 mg PO DAILY metoprolol succinate ER 25 mg PO BID omeprazole 20 mg PO DAILY polyethylene glycol 3350 (Gavilax) 17 grams PO DAILY warfarin 2 mg See Protocol PO DIRECTED Nursing Note INR 1.7?out of therapeutic range of 2-3 Medications and supplements reviewed Patient status: usual state of health Medications or supplements: no changes Diet: no changes Denies any signs and symptoms of bleeding or clotting or unusual bruising Bleeding, bruising, clotting discussed Nutritional guidance given: avoid greens but pt states she doesn't eat greens so she will concnentrate on foods that raise the INR. Dose: increase today's dose to 4mg (2mg) then 2mg daily F/U INR Date : 1 week?? Patient verbalizing understanding of instructions given. Anti-Coag Initial Assessment Social Hx Patient Tobacco Use Status: Former Tobacco user Smoking packs per day: 0.5 alcohol intake: never Cardiovascular Hx: HTN and Arrhythmias Lung Disease HX: Asthma Endocrine Hx: Diabetes Musculoskeletal Hx: Osteoporosis Blood Disorder Hx: Anemia and Hyperlipidemia Hx: Kidney Disease Neurological Hx: Migraines/Headaches Cancer HX: No Psych. Illness/Depression: Yes Coding Level of Care Code Est Patient Level 1 Diagnoses Current use of anticoagulant therapy Z79.01 Assessment & Plan Assessment & Plan (1) Current use of anticoagulant therapy: Code(s): Z79.01 - jail (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 Category: Medical
== END 2024-01-24 14:02 | disposition home or self-care (01) ==
LOC: HO.ACS 13:41
PROVIDERS: PCP Student in an Organized Health Care Education/Training Program; Visit Provider Internal Medicine
DX: Z79.01 Long term (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 (principal)

== ENCOUNTER → 2024-01-24 13:41 | Outpatient (BNVA) | payer MEDICAID, SELFPAY | PROVIDERS: PCP Student in an Organized Health Care Education/Training Program; Visit Provider Internal Medicine | DX: I48.91 Unspecified atrial fibrillation (principal); Z79.01 Long term (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; Z51.81 Encounter for therapeutic drug level monitoring | CPT/HCPCS: 85610; 99211 ==

== ENCOUNTER 2024-02-01 14:17 | Outpatient (AMB) | payer MEDICAID, SELFPAY ==
--- NOTE | 2024-02-01 14:33 | MHC.OFFVISCO ---
Intake Intake Visit Reasons: Anticoagulation Allergies lisinopril Allergy (Mild, Verified 02/01/24 14:18) Cough Medication List - Last Reconciled 02/01/24 by Li Dumont RN albuterol sulfate 90 mcg/actuation (Ventolin HFA) 2 puffs inhalation Q6H PRN ammonium lactate 12% topical BEDTIME atorvastatin 10 mg PO DAILY bisacodyl 5 mg PO DAILY PRN cholecalciferol (vitamin D3) 50 mcg PO DAILY clonidine HCl 0.2 mg PO BID clotrimazole 1% appl topical DAILY diltiazem HCl CD 120 mg PO DAILY docusate sodium 100 mg PO BID PRN dulaglutide (Trulicity) 1.5 mg subcut QWEEK ferrous gluconate 324 mg PO 3XW linaclotide (Linzess) 145 mcg PO QAM loratadine 10 mg PO DAILY lorazepam 0.5 mg PO QAM PRN losartan 25 mg PO DAILY metoprolol succinate ER 25 mg PO BID omeprazole 20 mg PO DAILY polyethylene glycol 3350 (Gavilax) 17 grams PO DAILY warfarin 2 mg See Protocol PO DIRECTED Nursing Note INR: 2.2 in therapeutic range Medications and supplements reviewed- TRULICITY INCREASED NO WARFARN INTERACTION PER MICROMEDEX AND UPTODATE No changes in health, diet, or supplements, Denies any signs and symptoms of bleeding or bruising or clotting. Bleeding, bruising, clotting discussed Nutritional guidance given Dose: KEEP SAME DOSE 2MG DAILY F/U INR: 2 WEEKS Patient verbalizes understanding of instructions given Anti-Coag Initial Assessment Social Hx Patient Tobacco Use Status: Former Tobacco user Smoking packs per day: 0.5 alcohol intake: never Cardiovascular Hx: HTN and Arrhythmias Lung Disease HX: Asthma Endocrine Hx: Diabetes Musculoskeletal Hx: Osteoporosis Blood Disorder Hx: Anemia and Hyperlipidemia Hx: Kidney Disease Neurological Hx: Migraines/Headaches Cancer HX: No Psych. 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
[2024-02-01 15:24] LABS: Prothrombin Time Whole Bld POC 26.6 sec (11.1-13.5); ~PT, ~INR - Anti Coag Clinic 2.2 (0.9-1.1)
== END 2024-02-01 14:36 | disposition home or self-care (01) ==
LOC: HO.ACS 14:17
PROVIDERS: PCP Student in an Organized Health Care Education/Training Program; Visit Provider Internal Medicine
DX: Z79.01 Long term (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 (principal)

== ENCOUNTER → 2024-02-01 14:17 | Outpatient (BNVA) | payer MEDICAID, SELFPAY | PROVIDERS: PCP Student in an Organized Health Care Education/Training Program; Visit Provider Internal Medicine | DX: I48.91 Unspecified atrial fibrillation (principal); Z79.01 Long term (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; Z51.81 Encounter for therapeutic drug level monitoring | CPT/HCPCS: 85610; 99211 ==

== ENCOUNTER 2024-02-15 13:53 | Outpatient (AMB) | payer MEDICAID, SELFPAY ==
[2024-02-15 14:00] LABS: Prothrombin Time Whole Bld POC 25.9 sec (11.1-13.5); ~PT, ~INR - Anti Coag Clinic 2.2 (0.9-1.1)
--- NOTE | 2024-02-15 14:04 | MHC.OFFVISCO ---
Intake Intake Visit Reasons: Anticoagulation Allergies lisinopril Allergy (Mild, Verified 02/15/24 13:54) Cough Medication List - Last Reconciled 02/15/24 by Candi Stone RN albuterol sulfate 90 mcg/actuation (Ventolin HFA) 2 puffs inhalation Q6H PRN ammonium lactate 12% topical BEDTIME atorvastatin 10 mg PO DAILY bisacodyl 5 mg PO DAILY PRN cholecalciferol (vitamin D3) 50 mcg PO DAILY clonidine HCl 0.2 mg PO BID clotrimazole 1% appl topical DAILY diltiazem HCl CD 120 mg PO DAILY docusate sodium 100 mg PO BID PRN dulaglutide (Trulicity) 1.5 mg subcut QWEEK ferrous gluconate 324 mg PO 3XW linaclotide (Linzess) 145 mcg PO QAM loratadine 10 mg PO DAILY lorazepam 0.5 mg PO QAM PRN losartan 25 mg PO DAILY metoprolol succinate ER 25 mg PO BID omeprazole 20 mg PO DAILY polyethylene glycol 3350 (Gavilax) 17 grams PO DAILY warfarin 2 mg See Protocol PO DIRECTED Nursing Note INR: 2.2 in therapeutic range of 2-3 Medications and supplements reviewed No changes in health, diet, medications, or supplements, Denies any signs and symptoms of bleeding or bruising or clotting. Bleeding, bruising, clotting discussed Nutritional guidance given Dose: 2mg daily F/U INR: 2 weeks Patient verbalizes understanding of instructions given Anti-Coag Initial Assessment Social Hx Patient Tobacco Use Status: Former Tobacco user Smoking packs per day: 0.5 alcohol intake: never Cardiovascular Hx: HTN and Arrhythmias Lung Disease HX: Asthma Endocrine Hx: Diabetes Musculoskeletal Hx: Osteoporosis Blood Disorder Hx: Anemia and Hyperlipidemia Hx: Kidney Disease Neurological Hx: Migraines/Headaches Cancer HX: No Psych. Illness/Depression: Yes Coding Level of Care Code Est Patient Level 1 Diagnoses Current use of anticoagulant therapy Z79.01 Results AMB INR Fingerstick AMB INR Fingerstick 2.2 Last Edit by Candi Stone RN on 02/15/24 14:03 interface delay Assessment & Plan Assessment & Plan (1) Current use of anticoagulant therapy: Code(s): Z79.01 - retirement (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 Category: Medical
== END 2024-02-15 14:06 | disposition home or self-care (01) ==
LOC: HO.ACS 13:53
PROVIDERS: PCP Student in an Organized Health Care Education/Training Program; Visit Provider Internal Medicine
DX: Z79.01 Long term (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 (principal)

== ENCOUNTER → 2024-02-15 13:53 | Outpatient (BNVA) | payer MEDICAID, SELFPAY | PROVIDERS: PCP Student in an Organized Health Care Education/Training Program; Visit Provider Internal Medicine | DX: I48.91 Unspecified atrial fibrillation (principal); Z79.01 Long term (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; Z51.81 Encounter for therapeutic drug level monitoring | CPT/HCPCS: 85610; 99211 ==

== ENCOUNTER 2024-03-14 15:41 | Outpatient (AMB) | payer MEDICAID, SELFPAY ==
[2024-03-14 15:47] LABS: Prothrombin Time Whole Bld POC 26.2 sec (11.1-13.5); ~PT, ~INR - Anti Coag Clinic 2.2 (0.9-1.1)
--- NOTE | 2024-03-14 15:49 | MHC.OFFVISCO ---
Intake Intake Visit Reasons: Anticoagulation Allergies lisinopril Allergy (Mild, Verified 03/14/24 15:39) Cough Medication List - Last Reconciled 03/14/24 by Candi Stone RN albuterol sulfate 90 mcg/actuation (Ventolin HFA) 2 puffs inhalation Q6H PRN ammonium lactate 12% topical BEDTIME atorvastatin 10 mg PO DAILY bisacodyl 5 mg PO DAILY PRN cholecalciferol (vitamin D3) 50 mcg PO DAILY clonidine HCl 0.2 mg PO BID clotrimazole 1% appl topical DAILY diltiazem HCl CD 120 mg PO DAILY docusate sodium 100 mg PO BID PRN dulaglutide (Trulicity) 1.5 mg subcut QWEEK ferrous gluconate 324 mg PO 3XW linaclotide (Linzess) 145 mcg PO QAM loratadine 10 mg PO DAILY lorazepam 0.5 mg PO QAM PRN losartan 25 mg PO DAILY metoprolol succinate ER 25 mg PO BID omeprazole 20 mg PO DAILY polyethylene glycol 3350 (Gavilax) 17 grams PO DAILY warfarin 2 mg See Protocol PO DIRECTED Nursing Note INR: 2.2 in therapeutic range of 2-3 Medications and supplements reviewed No changes in health, diet, medications, or supplements, Denies any signs and symptoms of bleeding or bruising or clotting. Bleeding, bruising, clotting discussed Nutritional guidance given Dose: 2mg daily F/U INR: 3 weeks Patient verbalizes understanding of instructions given Anti-Coag Initial Assessment Social Hx Patient Tobacco Use Status: Former Tobacco user Smoking packs per day: 0.5 alcohol intake: never Cardiovascular Hx: HTN and Arrhythmias Lung Disease HX: Asthma Endocrine Hx: Diabetes Musculoskeletal Hx: Osteoporosis Blood Disorder Hx: Anemia and Hyperlipidemia Hx: Kidney Disease Neurological Hx: Migraines/Headaches Cancer HX: No Psych. Illness/Depression: Yes Coding Level of Care Code Est Patient Level 1 Diagnoses Current use of anticoagulant therapy Z79.01 Assessment & Plan Assessment & Plan (1) Current use of anticoagulant therapy: Code(s): Z79.01 - long-term (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 Category: Medical
== END 2024-03-14 15:50 | disposition home or self-care (01) ==
LOC: HO.ACS 15:41
PROVIDERS: PCP Student in an Organized Health Care Education/Training Program; Visit Provider Internal Medicine
DX: Z79.01 Long term (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 (principal)

== ENCOUNTER → 2024-03-14 15:41 | Outpatient (BNVA) | payer MEDICAID, SELFPAY | PROVIDERS: PCP Student in an Organized Health Care Education/Training Program; Visit Provider Internal Medicine | DX: I48.91 Unspecified atrial fibrillation (principal); Z79.01 Long term (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; Z51.81 Encounter for therapeutic drug level monitoring | CPT/HCPCS: 85610; 99211 ==

== ENCOUNTER 2024-04-07 14:33 | Outpatient (AMB) | payer MEDICAID, SELFPAY ==
[2024-04-07 14:42] LABS: Prothrombin Time Whole Bld POC 30.4 sec (11.1-13.5); ~PT, ~INR - Anti Coag Clinic 2.5 (0.9-1.1)
--- NOTE | 2024-04-07 14:49 | MHC.OFFVISCO ---
Intake Intake Visit Reasons: Anticoagulation Allergies lisinopril Allergy (Mild, Verified 04/07/24 14:33) Cough Medication List - Last Reconciled 04/07/24 by Li Dumont RN albuterol sulfate 90 mcg/actuation (Ventolin HFA) 2 puffs inhalation Q6H PRN ammonium lactate 12% topical BEDTIME atorvastatin 10 mg PO DAILY bisacodyl 5 mg PO DAILY PRN cholecalciferol (vitamin D3) 50 mcg PO DAILY clonidine HCl 0.2 mg PO BID clotrimazole 1% appl topical DAILY diltiazem HCl CD 120 mg PO DAILY docusate sodium 100 mg PO BID PRN dulaglutide (Trulicity) 1.5 mg subcut QWEEK ferrous gluconate 324 mg PO 3XW linaclotide (Linzess) 145 mcg PO QAM loratadine 10 mg PO DAILY lorazepam 0.5 mg PO QAM PRN losartan 25 mg PO DAILY metoprolol succinate ER 25 mg PO BID omeprazole 20 mg PO DAILY polyethylene glycol 3350 (Gavilax) 17 grams PO DAILY warfarin 2 mg See Protocol PO DIRECTED Nursing Note INR: 2.5 in therapeutic range 2.0-3.0 Medications and supplements reviewed No changes in health, diet, medications, or supplements, Denies any signs and symptoms of bleeding or bruising or clotting. Bleeding, bruising, clotting discussed Nutritional guidance given Dose: 2MG DAILY F/U INR: 3 WEEK Patient verbalizes understanding of instructions given Anti-Coag Initial Assessment Social Hx Patient Tobacco Use Status: Former Tobacco user Smoking packs per day: 0.5 alcohol intake: never Cardiovascular Hx: HTN and Arrhythmias Lung Disease HX: Asthma Endocrine Hx: Diabetes Musculoskeletal Hx: Osteoporosis Blood Disorder Hx: Anemia and Hyperlipidemia Hx: Kidney Disease Neurological Hx: Migraines/Headaches Cancer HX: No Psych. 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
--- OUTSIDE RECORDS SUMMARY | 2024-04-07 19:00 | XMS_ITS | Encounter Summary ---
Author Organization [facility] Address [address] [place] [address] Care Team Providers Care Plug Stitcher Name Role Phone Paul Mix MD Primary Care Provider [phone] Lisette Murillo Primary Care Provider [phone] Encounter Details Date Type Department Care Team ([facility] st Contact Info) Description 04/30/2013 Orders Only [facility] [place] [facility] [address] [id number] Mandeep Kirk MD [address] [place] [address] Social History Tobacco Use Types Packs/Day Years Used Date Smoking Tobacco: Every Day Alcohol Use Standard Drinks/Week Comments No 0 (1 standard drink = 0.6 oz pur e alcohol) Comments No Sex and Gender Information Value Date Recorded Sex Assigned at Not on file Legal Sex Female 1:04 AM EDT Gender Identity Not on file Sexual Orientation Not on file documented as of this encounter Plan of Treatment Not on file documented as of this encounter Visit Diagnoses Diagnosis Knee pain- Primary Pain in joint, lower leg documented in this encounter Care Teams Plug Stitcher Relationship Specialty Start Date End Date Paul Mix MD [facility] [address] [place] [address] PCP - General 05/25/09 11/19/14 Lisette Murillo [address] [address] PCP - General Internal Medicine 11/20/14 documented as of this encounter
--- OUTSIDE RECORDS SUMMARY | 2024-04-07 19:00 | XMS_ITS | Encounter Summary ---
Author Organization [employer] Address [address] [place] [address] Care Team Providers Care Icu Nurse Name Role Phone Shruti Campos MD Primary Care Pro vider Reason for Visit * Reason Comments Med Refill Encounter Details Date Type Department Care Team ([facility] st Contact Info) Description 03/26/2024 Refill [facility] [address] [place], [place] [id number] Shruti Campos MD [address] [place], [place] [phone] Social History Tobacco Use Types Packs/Day Years Used Date Smoking Tobacco: Former Cigarettes Comments:Started tobacco smo christine 17 y and stopped at her 29 y fo age --used to smoke for 12 years about 5 cig a day --PAQ brittani 5 Alcohol Use Standard Drinks/Week Comments Never 0 (1 standard drink = 0.6 oz pur e alcohol) Depression Answer Date Recorded Patient Health Questionnaire-9 Score 18 05/11/2023 Patient Health Questionnaire-9 Score 18 05/11/2023 Last PHQ-9: Questionnaire Data Not on file 0 05/11/2023 Food Insecurity Answer Date Recorded Within the past 12 months, y ou worried that your food would run out before you got money to buy more: Often true 05/03/2023 Within the past 12 months,th e food you bought just didn't last and you didn't have enough money to get more: Often true Transportation Answer Date Recorded In the past 12 months, has l ack of transportation kept you from medical appts, meetings, work or from getting things needed for daily living? No 05/03/2023 Utilities Answer Date Recorded In the past 12 months, has t he electric, gas, oil or water company threatened to shut off services in your home? No 05/03/2023 Depression Answer Date Recorded Patient Health Questionnaire-2 Score 2 05/11/2023 Internet Access Answer Date Recorded Internet Access Q1 Yes 11/12/2023 Internet Access Q2 Not on file 11/12/2023 Comments No Sex and Gender Information Value Date Recorded Sex Assigned at Female 10/06/2022 1:54 PM EDT Legal Sex Female 1:53 PM EDT Gender Identity Female 10/06/2022 1:54 PM EDT Sexual Orientation Don't know 05/11/2023 11 :30 AM EST Sexual Orientation Straight 05/11/2023 11 :30 AM EST documented as of this encounter Miscellaneous Notes * Telephone Encounter - Christy Crespo RN - 03/26/2024 8:56 AM EST Pt follows with [facility] for INR/dosing. Last seen by them 03/14/24. INR was 2.2. Pt has been compliant with INRs and dosing with their office. Queued warfarin refill. documented in this encounter Plan of Treatment Not on file documented as of this encounter Visit Diagnoses Not on filedocumented in this encounter Additional Health Concerns Assessment Noted Time PHQ-9 Depression Total Score: 18 024 12:25 PM EST documented as of this encounter Care Teams Icu Nurse Relationship Specialty Start Date End Date Shruti Campos MD [address] [place] [id number] PCP - General Internal Medicine 05/11/23 documented as of this encounter
--- OUTSIDE RECORDS SUMMARY | 2024-04-07 19:00 | XMS_ITS | Referral Summary ---
Author Organization [facility] Address [address] [place] [address] Care Team Providers Care Ocularist Name Role Phone Unavailable Primary Care Provider Unavailabl e Encounters Date Type Department Care Team Description 03/25/2024 Refill [facility] 4th floor Cardiology Medicine [address] [place] [id number] Security System Engineer: Carmen Smith DO from Last 3 Months Allergies Active Allergy Reactions Criticality Noted Date Comments Lisinopril Cough High 12/17/2016 Medications levalbuterol (XOPENEX HFA) 45 mcg/actuation inhaler Inhale 1-2 puffs by mouth every 4 hours as needed for wheezing. Active calcium citrate-vitamin D3 500 mg calcium -400 unit tablet,chewable Chew and swallow 1 tablet by mouth 2 times a day. 60 tablet 09/23/19 20 Active multivitamin tablet,chewable Chew and swallow 1 tablet by mouth daily. 30 each 5 09/23/19 20 Active cyanocobalamin, vitamin B-12, (VITAMIN B-12) 500 mcg lozenge Take 500 mcg by mouth daily. 30 lozenge 5 09/23/19 20 Active fluticasone propionate (FLONASE) 50 mcg/actuation nasal spray Administer 1 spray into each nostril once a day for 14 days. 16 g 01/25/20 21 Active Additional Information Patient taking differently:1 spray both nostrils Daily,prn, Reported on 10/04/2021 tiZANidine (ZANAFLEX) 4 mg tablet every 8 (eight) hours. Active traMADoL (ULTRAM) 50 mg tablet tramadol 50 mg tablet TAKE 1 TABLET BY MOUTH EVERY DAY NEEDED FOR 10 DAYS Active cyclobenzaprine (FLEXERIL) 10 mg tablet cyclobenzaprine 10 mg tablet TAKE 1 TABLET BY MOUTH THREE TIMES A DAY FOR 28 DAYS Active warfarin (COUMADIN) 1 mg tablet Take 1 tablet (1 mg total) by mouth daily. Take 1 tablet (1 mg ) as directed daily 90 tablet 1 08/25/19 23 Active warfarin (COUMADIN) 2 mg tablet TAKE 1 TABLET (2MG) BY MOUTH DIRECTED 90 tablet 1 02/15/20 23 Active bisacodyL (Laxative, bisacodyl,) 5 mg EC tablet Take 1 tablet (5 mg total) by mouth daily as needed for constipation. 90 tablet 03/15/19 24 Active polyethylene glycol 3350 (Gavilax) powderIndication s:Other constipation Take 17 g by mouth once a day. Mix powder in 4 to 8 oz of water, juice, coffee, or tea prior to administration. 510 g 2 03/15/19 24 Active omeprazole (PriLOSEC) 20 mg capsule TAKE 1 CAPSULE BY MOUTH EVERY DAY 90 capsule 03/21/19 24 Active dilTIAZem CD (CARDIZEM CD) 120 mg 24 hr capsuleIndicatio ns:Essential hypertension,Atr ial fibrillation, unspecified type (HCC) TAKE 1 CAPSULE (120 MG TOTAL) BY MOUTH ONCE A DAY. 90 capsule 04/23/19 24 Active loratadine (CLARITIN) 10 mg tablet TAKE 1 TABLET BY MOUTH EVERY DAY 90 tablet 06/06/19 24 Active docusate sodium (COLACE) 100 mg capsuleIndicatio ns:Other constipation Take 1 capsule (100 mg total) by mouth 2 times a day as needed for constipation. 180 capsule 06/13/19 24 Active losartan (COZAAR) 25 mg tablet Take 1 tablet (25 mg total) by mouth once a day. 90 tablet 06/13/19 24 Active cloNIDine (CATAPRES) 0.2 mg tabletIndication s:Essential hypertension Take 1 tablet (0.2 mg total) by mouth 2 times a day. 60 tablet 06/29/19 24 Active metoprolol succinate XL (TOPROL XL) 25 mg tablet Take 2 tablets (50 mg total) by mouth once a day AND 1 tablet (25 mg total) every evening. 270 tablet 07/02/19 24 Active Active Problems Problem Noted Date Diagnosed Date Primary osteoarthritis of left knee 01/20/2022 S/P laparoscopic sleeve gastrectomy 01/20/2022 Lumbosacral radiculopathy 01/20/2022 Cervical radiculopathy 01/20/2022 Pain of both shoulder joints 01/20/2022 Morbid obesity 09/22/2019 Adjustment disorder with anxiety 04/10/2019 Major depressive disorder, recurrent, moderate 0 04/10/2019 Mild intermittent asthma 04/10/2019 Glaucoma of left eye 02/15/2019 Chronic pain syndrome 01/20/2019 Episodic mood disorder 05/15/2018 superintendent general (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 2017 PVD (peripheral vascular disease) 12/20/2017 Claudication 11/26/2017 Ruptured ovarian cyst 07/12/2017 Assessment & Plan (07/15/2017 11:43 AM EDT): Causing hemoperitoneum. DIC panel showed FDP 10-40, Fibrinogen 357 wnl, d-dimer elevated to 3.73. Pelvic ultrasound showed retroperitoneal hematoma in cul-de-sac measuring 13.6cm x 6cm. INR 1.1 reversed on 07/14/17 with stable H/H. Gynecology consulted and no need for surgical intervention and clot will absorb on its own. Follow up with [facility] in 2-3 weeks to discuss management of ovarian cysts. Recommend tylenol and ibuprofen for pain and short prescription of oxycodone 5mg Q6H PRN for severe pain. Type 2 diabetes mellitus wit h microalbuminuria, without long-term current use of insulin 04/24/2017 Assessment & Plan (04/25/2017 3:48 PM EST): Newly diagnosed type 2 diabetes mellitus. Hemoglobin A1C on admission was 6.8, glucose levels 180-200. In setting of elevated creatinine and IV contrast given on 04/22, we will recommend a less nephrotoxic medication than metformin. - Continue glipizide 2.5mg qhs - BG levels now within good range - Continue SSI - Patient educated about diet and lifestyle modifications, nutrition saw pt 04/25 ANGELA (obstructive sleep apnea) 04/24/2017 Paroxysmal atrial fibrillation 04/23/2017 Assessment & Plan (07/15/2017 11:32 AM EDT): Chads Vasc score equal to 3 secondary to sex, hypertension and diabetes. Warfarin was held due to acute bleeding from hemorraghic ovarian cyst. INR was reversed with IV vitamin K and 3 units of FFP. Warfarin held at time of discharge. Recommend restarting warfarin in 2 weeks. Patient to follow up with PCP regarding restarting warfarin. Recommend restarting in 2 weeks. Assessment & Plan (04/26/2017 1:44 PM EST): Pt now has atrial fibrillation with rapid ventricular response and ST segment changes in the setting of viral URI. Pt had chest pain/tightness on admission; CXR was negative, CT PE was done - small opacities in right middle, right upper and left upper lobes consistent with bronchiolitis, no PE seen. First two sets of troponins were within normal limits. There is likely demand ischemia in the setting of an acute viral illness. Diltiazem 15mg/hr infusion was started in ED. Pt was started on Elliquis 5mg oral BID on 04/24, however cannot continue this outpatient because pt does not have insurance coverage for this. - Started on diltiazem 240mg. Required 1x dose of SR 60mg 04/25 and another 1x dose of 20mg IV d/t HRs to 120s. Labetalol was discontinued and losartan was increased. Will watch closely and continue to adjust accordingly. - TTE 04/24, EF 65-70% with concentric LV hypertrophy, moderate to severe and LA enlargement - Start coumadin 5mg oral qhs outpatient for INR target 2.0 - 3.0. Home services arranged for blood draws. Followup scheduled for 05/01 at 11:15 AM at [facility] Essential hypertension 04/23/2017 Assessment & Plan (07/15/2017 11:37 AM EDT): Continue home clonidine 0.2 mg 3 times daily, losartan 25 mg daily and diltiazem 240 mg extended release once daily. Patient is on amlodipine 10 mg daily at home. Amlodipine held as patient is on redundant CCB and diltiazem is more beneficial for her atrial fibrillation. BP stable in 120-130s/70s during hospital course. Recommend patient discussing use of amlodipine for BP control with her PCP. Assessment & Plan (04/25/2017 3:45 PM EST): Patient has a history of benign essential hypertension. - Continue home dose of amlodipine 10mg qhs, clonidine 0.2mg TID - Labetalol was discontinued in setting of increased diltiazem dose - Losartan increased to 50mg daily Post traumatic stress disorder (PTSD) 12/22/2016 LGSIL (low grade squamous intraepithelial dyspla bernie) 08/28/2014 Overview (04/10/2019): 08/24/14: LGSIL, +HPV - plan colpo LGSIL on Pap smear of cervix 08/28/2014 Overview (03/23/2022): 08/24/14: LGSIL, +HPV - plan colpo S/P ACL reconstruction 11/16/2011 Bilateral carpal tunnel syndrome Resolved Problems Problem Noted Date Diagnosed Date Resolved Date Obstructive sleep apnea syndrome 06/14/2022 06/15/19 23 08/24/2022 Other abnormal glucose 04/10/201901/20 Anxiety 02/15/2019 01/20/2022 Acute bilateral knee pain 12/10/2018 Muscle cramp 03/28/2018 01/20/2022 Bilateral leg pain 03/28/2018 2 Numbness and tingling in both hands 03/28/2018 01/20/2022 Neuropathy 11/26/2017 01/20/2022 Ruptured ovarian cyst 08/08/20172021 Hemorrhagic cyst of ovary 07/13/2017 Hemoperitoneum 07/12/2017 01/20/2022 Assessment & Plan (07/15/2017 11:39 AM EDT): Most likely secondary to a ruptured ovarian cyst. Received IV vitamin K and 3 units of FFP. INR 1.1 reversed. Hemoglobin remained stable at 7.6-7.9 after INR reversal. Gynecology consulted and recommended no surgical intervention at this time given stable H/H and patient is asymptomatic. Recommend follow up with Dr. Liriano -[facility] in 2-3 weeks after discharge. Patient to follow up with PCP and recheck CBC in 1-2 days. Body mass index (BMI) 50.0-59.9, adult 06/15/2017 01/20/2022 Chronic left shoulder pain 05/29/2017 1 03/22/2021 Cough 04/24/2017 04/24/2017 CKD (chronic kidney disease), stage III 04/24/2017 04/26/2017 Assessment & Plan (04/24/2017 3:02 PM EST): As above, pt has type 2 diabetes mellitus. Cr 1.35 on 04/23; this is baseline when compared to creatinine levels measured in the last year. Chest pain 04/23/2017 04/24/2017 Assessment & Plan (04/24/2017 1:11 PM EST): As above, pt has chest tightness associated with viral URI and afib/palpitations. - Chest X-ray negative. - D-dimer 0.72 - CT PE done - small opacities in right middle, right upper and left upper lobes consistent with bronchiolitis, no PE seen - Rapid flu was negative, RVP sent - Tramadol 40mg PRN pain Shortness of breath 04/23/2017 04/26/19 18 Assessment & Plan (04/26/2017 1:45 PM EST): Pt has a history of asthma and SOB associated with URI. Chest X-ray was negative. CT scan of chest did not reveal PE, but showed small areas of tree-in-bud opacities in the right middle, right upper and left upper lobes consistent with bronchiolitis. Rapid flu was negative. Patient also complains of cough productive of phlegm which makes it difficult to sleep. - RVP negative, droplet precautions removed - Continue course of azithromycin 250mg PO daily (5 days total) - Continue 20mg prednisone daily - Continue albuterol PRN, added Pulmicort PRN for SOB - Supplemental O2 by NC for O2 sats <92 - Dextromorphan PRN cough, Mucinex PRN congestion Class 3 severe obesity due t o excess calories without serious comorbidity with body mass index (BMI) of 50.0 to 59.9 in adult 04/23/2017 Assessment & Plan (04/25/2017 3:47 PM EST): Pt is morbidly obese with BMI of 51.49, with hirsutism and neck acanthosis. Glucose was 278. Educated patient on effects of obesity on blood pressure and newly diagnosed afib. - Seen by nutrition 04/25 - discussed wgt loss, healthy eating habits - Pt endorses previously being diagnosed with PCOS, tried metformin in past but endorses SEs - Total testosterone level ordered due to hirsutism; level wnls on this admission Bronchiolitis 04/23/2017 01/20/2022 Assessment & Plan (04/25/2017 3:49 PM EST): Pt has a progressive URI for one week, associated with an early fever, diarrhea, and new Afib. CT of chest showed small areas of tree-in-bud opacities in the right middle, right upper and left upper lobes consistent with bronchiolitis. Rapid flu was negative. WBC count within normal limits. - RVP negative - Will continue to monitor vitals per floor protocol - Encourage PO intake Blepharitis of right upper eyelid 09/28/2016 01/20/2022 Elevated sed rate 09/25/2016 01/20/2022 Other chronic pain 08/08/2016 2 Type 2 diabetes mellitus 12/30/201001/2022 Assessment & Plan (07/15/2017 11:32 AM EDT): On glipizide 2.5 mg once daily at home. She was placed on low dose sliding scale insulin while in hospital. , incidental 12/30/20102017 Localized osteoarthrosis, lower leg 08/20/2009 01/20/2022 Overview (04/10/2019): . Immunizations Name Administration Dates Next Due INFLUENZA, SPLIT VIRUS, TRIVALENT, PF 11/29/2010 Influenza, Trivalent, MDV, Injectable 01/22/2012 Tetanus Toxoid, Reduced Diph theria Toxoid, and Acellular Pertussis Vaccine, Adsorbed 08/29/2011 Tetanus and Diphtheria Toxoi ds, Adsorbed, Preservative Free (2 Lf of Tetanus Toxoid and 2 Lf of Diphtheria Toxoid) 04/16/2017 Social History Tobacco Use Types Packs/Day Years Used Date Smoking Tobacco: Former Cigarettes 0.3 10 0 05/26/2007 - 05/25/2017 Smokeless Tobacco: Never Tobacco Cessation:Counseling Given: Not Answered Comments:: Alcohol Use Standard Drinks/Week Comments No 0 (1 standard drink = 0.6 oz pur e alcohol) Comments No Sex and Gender Information Value Date Recorded Sex Assigned at Female 08/18/2021 1:58 PM EDT Legal Sex Female 9:20 AM EDT Gender Identity Female 08/18/2021 1:58 PM EDT Sexual Orientation Straight 08/18/2021 1: 58 PM EDT Last Filed Vital Signs Vital Sign Reading Time Taken Comments Blood Pressure 128/80 08/24/2022 1:46 PM EDT Pulse 90 08/24/2022 1:46 PM EDT Temperature 36.7 ??C (98 ??F) 08/24/2022 1:46 PM EDT Respiratory Rate 16 06/02/2022 2:38 PM EDT Oxygen Saturation 100% 06/05/2022 11:47 AM EDT Inhaled Oxygen Concentration - - Weight 126 kg (277 lb 12.5 oz) 08/24/2022 1:46 P M EDT Height 160 cm (5' 2.99 ) 08/24/2022 1:46 PM EDT Body Mass Index 49.22 08/24/2022 1:46 PM EDT Plan of Treatment Not on file Procedures * Due to [place] state law, this organization might not be sharing negative HIV tests. Procedure Name Priority Date/Time Associated Diagnosis Comments POCT HEMOGLOBIN A1C, CMG, NON-INTERFACED Routine 06/05/2022 11:58 AM EDT Type 2 diabetes mellitus with other specified complication, unspecified whether nursing home insulin use (CMS/HCC) (HCC) BASIC METABOLIC PANEL STAT 06/02/2022 12:15 PM EDT [facility] W/HPV, MRNA E6/E7, REFLEX 16/18/45 Routine 08/08/2017 11:00 AM EDT Screening for malignant neoplasm of cervix Screening for human papillomavirus HEPATITIS C ANTIBODY, CONVERSION Routine 09/16/2010 12:21 PM EDT from Last 3 Months or Most Recently Relevant to Health Maintenance Results * Due to [place] state law, this organization might not be sharing negative HIV tests. * (ABNORMAL) POCT Hemoglobin A1C, non-interfaced (06/05/2022 11:58 AM EDT) POCT Hemoglobin, A1C 6.6(A) 0 - 5.6 % Blood 06/05/2022 11:5 8 AM EDT Ellis Lee MD POINT OF CARE TEST ORDERABLES Final Result * (ABNORMAL) BMP - Basic Metabolic Panel (06/02/2022 12:15 PM EDT) NA 133(L) 136 - 145 mmol/L 06/02/2022 1:07 PM EDT [facility] K 3.9 3.5 - 5.3 mmol/L 06/02/2022 1:07 PM EDT [facility] Cl 105 98 - 107 mmol/L 06/02/2022 1:07 PM EDT [facility] CO2 26 22 - 30 mmol/L 06/02/2022 1:07 PM EDT [facility] BUN 13 7 - 18 mg/dL 06/02/2022 1:07 PM EDT [facility] Creatinine 0.98 0.60 - 1.30 mg/dL 06/02/2022 1:07 PM EDT [facility] Glucose 129(H) 70 - 99 mg/dL 06/02/2022 1:07 PM EDT [facility] Calcium 9.6 8.5 - 10.1 mg/dL 06/02/2022 1:07 PM EDT [facility] Anion Gap 2(L) 5 - 15 06/02/2022 1:07 PM EDT [facility] eGFR 74(L) >=90 mL/min/1. 73m2 06/02/2022 1:07 PM EDT [facility] Comment: Estimated Glomerular Filtration Rate (GFR) calculated using the CKD-EPI refit equation. The different stages of CKD form a continuum. The stages of CKD are classified as follows : Stage 1: Normal or increased GFR (>90 mL/min/1.73 m2) Stage 2: Mild reduction in GFR (60-89 mL/min/1.73 m2) Stage 3a: Moderate reduction in GFR (45-59 mL/min/1.73 m2) Stage 3b: Moderate reduction in GFR (30-44 mL/min/1.73 m2) Stage 4: Severe reduction in GFR (15-29 mL/min/1.73 m2) Stage 5: Kidney failure (GFR < 15 mL/min/1.73 m2 or dialysis) Blood Structure of peripheral vein / Unknown Venipuncture / Unknown 06/02/2022 12:15 PM EDT 06/02/2022 12:41 PM EDT us Josiah Vazquez MD LAB BLOOD ORDERABLES Final Result [facility] [address] [place] [address], * (ABNORMAL) [facility] Pap w/HPV, mRNA E6/E7, Reflex 16/18/45 (08/08/2017 11:00 AM EDT) [facility] TIS, mRNA E6/E7 Jessica See Below(A) [facility] Comment: TIS,mRNA E6/E7 JESSICA ?? CLINICAL INFORMATION: ? None given ?? LMP: ? 5/2/18 ?? PREV. PAP: ? 2010 PAP LGSIL ?? PREV. BX: ? NONE GIVEN ?? SOURCE: ? Cervix, Endocervix ?? STATEMENT OF ADEQUACY: ? Satisfactory for evaluation. ? Endocervical/transformation zone component ? present. ?? GENERAL CATEGORIZATION: ? EPITHELIAL CELL ABNORMALITY ?? INTERPRETATION/RESULT: ? Low Grade Squamous Intraepithelial Lesion (LSIL) ?? COMMENT: ? This Pap test has been evaluated with computer ? assisted technology. ?? METAL CEILING HANGER: ? MPG, CT(ASCP) ? CT screening location: [facility] ? [address] ? [place], [place] ??[address] ?? PATHOLOGIST: ? Maxwell Oreilly M.D. Direct , ? Board Certified in Anatomic and Clinical ? Pathology and Cytopathology ? (electronic signature) ? Consulting Pathologist ? [facility] ? [address] ? [place] [address] ? [phone] ?? HPV mRNA E6/E7 ? Not Detected ? REFERENCE RANGE: Not Detected ? This test was performed using the APTIMA HPV Assay ([facility] [employer] ? This assay detects E6/E7 viral messenger RNA (mRNA) from 14 ? high-risk HPV types (16,18,31,33,35,39,45,51,52,56,58,59,66,68). ? EXPLANATORY NOTE: ? The Pap is a screening test for cervical cancer. It is ? not a diagnostic test and is subject to false negative ? and false positive results. It is most reliable when a ? satisfactory sample, regularly obtained, is submitted ? with relevant clinical findings and history, and when ? the Pap result is evaluated along with historic and ? current clinical information. ? Swab (specimen) Cervix uteri structure / Unknown 08/08/2017 11:00 AM EDT Matthew Pryor MD LAB [facility] ORDER STELLA Final Result [facility] [address] [address], [place] [address], [facility] [address], [place] [address], * HEPATITIS C ANTIBODY, CONVERSION (09/16/2010 12:21 PM EDT) Hepatitis C Antibody <0.02 <1.00 IV [facility] Comment: Negative Not infected with HCV, unless recent infection is suspected or other evidence exists to indicate HCV infection. 09/16/2010 12:2 1 PM EDT 09/16/2010 1:08 PM EDT Paula Valdez MD LAB HISTORICAL RESULTS F inal Result [facility] [address] [place] [address], from Last 3 Months or Most Recently Relevant to Health Maintenance Insurance [facility] Advance Directives Documents on File Type Date Recorded Patient Performance Management Consultant Expl anation Advance Directive 01/14/2011 12:00 AM Adva nce Care Directives * Full Code (Latest Code Status on File) Date Activated Date Inactivated Comments 09/22/2019 5:57 PM 09/23/2019 5:57 PM * Presumed Full Code Date Activated Date Inactivated Comments 09/22/2019 12:20 PM 09/22/2019 5:57 PM * Full Code Date Activated Date Inactivated Comments 07/12/2017 6:08 PM 07/15/2017 4:54 PM * Full Code Date Activated Date Inactivated Comments 04/23/2017 9:27 AM 04/26/2017 6:15 PM Healthcare Agents on File Name Relationship Healthcare Agent Relationship Communication Shruti Nevarez Mother Next of Kin Clayton Cooper Significant Other Next of Kin
--- OUTSIDE RECORDS SUMMARY | 2024-04-07 19:00 | XMS_ITS | Encounter Summary ---
Author Organization [employer] Address [address] [facility] [address] [place] [address] Care Team Providers Care Doctor Of Naprapathy Name Role Phone Shruti Campos MD Primary Care Pro vider Encounter Details Date Type Department Care Team (Latest Contact Info) Description 04/07/2024 Travel Social History Tobacco Use Types Packs/Day Years [...] AM EST documented as of this encounter Plan of Treatment Not on file documented as of this encounter Visit Diagnoses Not on filedocumented in this encounter Additional Health Concerns Assessment Noted Time PHQ-9 Depression Total Score: 18 024 12:25 PM EST documented as of this encounter Care Teams Doctor Of Naprapathy Relationship Specialty Start Date End Date Shruti Campos MD [address] [place] [id number] PCP - General Internal Medicine 05/11/23 documented as of this encounter
--- OUTSIDE RECORDS SUMMARY | 2024-04-07 19:00 | XMS_ITS | Encounter Summary ---
Author Organization [employer] Address [address] [facility] [address] [place] [address] Care Team Providers Care Continuous Pickling Line Pickler Helper Name Role Phone Shruti Campos MD Primary Care Pro vider Reason for Visit * Reason Comments Med Refill Encounter Details Date Type Department Care Team ([facility] st Contact Info) Description 12/16/2023 Refill [facility] [address] [place], [place] [phone] Shruti Campos MD [address] [place], [place] [phone] Social History Tobacco Use Types Packs/Day Years [...] documented as of this encounter Care Teams Continuous Pickling Line Pickler Helper Relationship Specialty Start Date End Date Shruti Campos MD [address] [place] [phone] PCP - General Internal Medicine 05/11/23 documented as of this encounter
--- OUTSIDE RECORDS SUMMARY | 2024-04-07 19:00 | XMS_ITS | Clinical Summary ---
Author Organization [facility] Address [address] [place] [address] Care Team Providers Care Farm Tractor Mechanic Name Role Phone Lisette Murillo Shelia Primary Care Provider [phone] Allergies No known active allergies Medications Oxycodone-Acetamin ophen (PERCOCET) 5-325 MG Tab 1 TABLET EVERY 6 HOURS NEEDED Active Metoprolol Tartrate 25 MG Tab 1 TABLET 4 TIMES DAILY Active Etonogestrel-Ethin yl Estradiol (NUVARING) 0.12-0.015 MG/24HR RINGIndications:Ot her general counseling and advice for contraceptive management insert vaginally for three weeks then remove for one week 1 Each 2 Active Penicillin V Potassium 500 MG Tab 1 TABLET EVERY 6 HOURS Active Losartan Potassium (COZAAR) 50 MG Tab 1 TABLET DAILY Active Lisinopril 10 MG Tab 1 TABLET twice daily Active Lisinopril 40 MG Tab 1 TABLET twice daily Active Rvtzkstyez-UFRM-Wl ffeine (FIORICET) 50-300-40 MG Cap 1 OR 2 CAPSULES EVERY 4 HOURS NEEDED Active Active Problems Problem Noted Date Diagnosed Date LGSIL on Pap smear of cervix 08/28/2014 Overview (01/19/2021): 08/24/14: LGSIL, +HPV - plan colpo Routine gynecological examination 01/03/2012 Overview (02/05/2015): S/P ACL reconstruction 11/16/2011 Left knee DJD 11/16/2011 Overview (07/17/2014): Osteoarth NOS-l/leg 08/20/2009 Overview (06/20/2015): . Family History Medical History Relation Name Comments Diabetes Father Cancer (?Type) Maternal grandmother Hypertension Mother Alcohol/Drug Neg Hx Allergies (med/food/envrnmt) Neg Hx Anesthesia Problems/Malignant Hyperthermia Neg Hx Arthritis/Joint disorder Neg Hx Asthma Neg Hx Autism Neg Hx Autoimmune dz Neg Hx Defect/Congenital Anomaly Neg Hx Blood Cell Disorder/Hemoglobinopathy Neg Hx Cancer - Breast Neg Hx Congenital heart dz Neg Hx <50 yrs for other reason Neg Hx Dementia Neg Hx Depression Neg Hx Developmental delay/Learning Disability Neg Hx Gastrointestinal Disorder Neg Hx Headache/Migraine Neg Hx Heart Disorder Neg Hx Hereditary/Genetic Disorder Neg Hx Kidney Disorder Neg Hx Lipid/Cholesterol Abnormality Neg Hx No Known or Significant Medical History Neg Hx Osteoporosis/Bone Disorder Neg Hx Other Neg Hx Psych/Mental Health Neg Hx Pulmonary Disorder Neg Hx Skin Problems Neg Hx Stroke Neg Hx Thyroid Disorder Neg Hx Tuberculosis Neg Hx Relation Name Status Comments Father Alive Maternal grandmother Mother Social History Tobacco Use Types Packs/Day Years Used Date Smoking Tobacco: Every Day Alcohol Use Standard Drinks/Week Comments No 0 (1 standard drink = 0.6 oz pur e alcohol) Comments No Sex and Gender Information Value Date Recorded Sex Assigned at Not on file Legal Sex Female 1:04 AM EDT Gender Identity Not on file Sexual Orientation Not on file Last Filed Vital Signs Vital Sign Reading Time Taken Comments Blood Pressure 180/110 08/24/2014 1:02 PM EDT lar ge cuff Pulse - - Temperature - - Respiratory Rate - - Oxygen Saturation - - Inhaled Oxygen Concentration - - Weight 114 kg (252 lb) 08/24/2014 1:02 PM EDT Height 162.6 cm (5' 4 ) 01/03/2012 11:06 AM EDT Body Mass Index 43.26 01/03/2012 11:06 AM EDT Plan of Treatment Health Maintenance Due Date Last Done Comments DTaP/Tdap/Td (1 - Tdap) 11/07/1997 Hep B (1 of 3 - 19+ 3-dose series) 11/07/1998 Pap Smear 08/24/2017 08/24/2014, 01/03/2012 Mammogram/Breast Imaging 2019 COVID-19 Vaccine ( - 2023-2 5 season) 2023 Influenza (#1) 2023 Zoster (Shingrix) (1 of 2) 11/07/2029 Hepatitis C Screening Completed 08/24/2014 HPV Vaccine Aged Out No longer eligi ble based on patient's age to complete this topic Hep A Aged Out No longer eligi ble based on patient's age to complete this topic Hib Aged Out No longer eligi ble based on patient's age to complete this topic Meningococcal ACWY Aged Out No longer eligible based on patient's age to complete this topic Pneumococcal Aged Out No longer eligi ble based on patient's age to complete this topic Procedures * Due to [place] [employer] [place] [employer] law, this organization might not be sharing negative HIV tests. Procedure Name Priority Date/Time Associated Diagnosis Comments SUREPATH FPGS,HPV,CT/GC PANEL Routine 08/24/2014 4:01 PM EDT Encounter for routine gynecological examination HEPATITIS C AB WITH REFLEX TO RNA PCR, SERUM Routine 08/24/2014 1:40 PM EDT Encounter for routine gynecological examination from Last 3 Months or Most Recently Relevant to Health Maintenance Results * Due to [place] law, this organization might not be sharing negative HIV tests. * (ABNORMAL) SUREPATH FPGS,HPV,CT/GC PANEL (08/24/2014 4:01 PM EDT) Clinical information NONE GIVEN [facility] Comment:{CLINICAL INFORMATIO N: {[id number]) Date last menstrual period [id number] [facility] Comment:{LMP: {[id number]) Date of previous PAP smear NONE GIVEN [facility] Comment:{PREV. PAP: {[id number]) Date of previous biopsy NONE GIVEN [facility] Comment:{PREV. BX: {[id number]) Specimen source (Cvx/Vag) Cervix, Endocervix [facility] Comment:{SOURCE: {[id number]) Statement of Adequacy (Cvx/Vag) Satisfactory for evaluation. Endocervical/hearn sformation zone component absent. [facility] Comment:{STATEMENT OF ADEQUA CY: {[id number]) General categories (Cvx/Vag) EPITHELIAL CELL ABNORMALITY(A) [facility] Comment:{GENERAL CATEGORIZAT ION: {[id number]) Cytology, Pap Smear Low Grade Squamous Intraepithelial Lesion (LSIL)(A) [facility] Comment:{INTERPRETATION/RESU LT: {[id number]) Cytology study comment (Cvx/Vag) This Pap test has been evaluated with computer assisted technology. [facility] Comment:{COMMENT: {[id number]) Leave Specialist (Cvx/Vag) MPG, CT(ASCP) [facility] Comment:{HOSPITAL AIDE: { [id number]) Pathologist (Cvx/Vag) Lorena Mcgrath M.D., Board Certified in Anatomic and Clinical Pathology (electronic signature) Consulting Pathologist [facility] [address] [place] [address] [facility] Comment:{PATHOLOGIST: {[id number]) HPV MRNA E6/E7 Detected(A) Not Detected [facility] Comment: {HPV mRNA E6/E7, SUREPATH VIAL {[id number]) This test was performed using the APTIMA HPV Assay ([employer] This assay detects E6/E7 viral messenger RNA (mRNA) from 14 high-risk HPV types (16,18,31,33,35,39,45,51,52,56,58,59,66,68). The analytical performance characteristics of this assay, when used to test SurePath specimens, have been determined by [facility] Chlamydia trachomatis rRNA NOT DETECTED NOT DETECTED [facility] Comment:{CHLAMYDIA TRACHOMAT IS RNA, TMA {[id number]) Neisseria Gonorrhoeae rRNA NOT DETECTED NOT DETECTED [facility] Comment:{NEISSERIA GONORRHOE AE RNA, TMA {[id number]) COMMENT SEE NOTE [facility] Comment: {COMMENT {[id number]) This test was performed using the APTIMA COMBO2 Assay ([employer] The analytical performance characteristics of this assay, when used to test SurePath specimens have been determined by [facility]. 08/24/2014 4:01 PM EDT 08/25/2014 1:12 AM EDT Narrative Resulting Agency Comment [id number] Estephania Skelton [facility] Aissatou l Result Performing Organization Address [facility] Co de Phone Number [facility] [address] [place] [address] * HEPATITIS C ANTIBODY, SERUM (08/24/2014 1:40 PM EDT) Hepatitis C virus Ab NON-REACTI VE NON-REACT LEIGH ANN [facility] Comment:{HEPATITIS C ANTIBOD Y {[id number]) Hepatitis C virus Ab Signal/Cutoff 0.07 <1.00 [facility] Comment:{SIGNAL TO CUT-OFF { [id number]) 08/24/2014 1:40 PM EDT 08/25/2014 12:58 AM EDT Narrative Resulting Agency Comment [id number] Estephania Skelton [facility] Final Res ult Performing Organization Address [facility] de Phone Number [facility] [address] [place] [address] from Last 3 Months or Most Recently Relevant to Health Maintenance Insurance MEDICAID * Guarantor: [id number] [employer] Account Type Relation to Patient Date of Phone Billing Address [employer]er[employer] [address] [place] [address] WORKERS COMPENSATION Care Teams Farm Tractor Mechanic Relationship Specialty Start Date End Date Lisette Murillo [address] [address] PCP - General Internal Medicine 11/20/14
--- OUTSIDE RECORDS SUMMARY | 2024-04-07 19:00 | XMS_ITS | Encounter Summary ---
Author Organization [employer] Address [address] [facility] [address] [place] [address] Care Team Providers Care Voice Studies Director Name Role Phone Shruti Campos MD Primary Care Pro vider Encounter Details Date Type Department Care Team (Late st Contact Info) Description 04/07/2024 1:00 PM EST Office Visit [facility] [address] [place], [place] [phone] Althea Chilel, ANP [address] [place] [address], [place] [phone] Rash (Primary Dx); Type 2 diabetes mellitus with microalbuminuria, without long-term current use of insulin (CMS/HCC); Pain of right heel Social History Tobacco Use Types Packs/Day Years [...] t he electric, gas, oil or water [employer] threatened to shut off services in your [...] AM EST documented as of this encounter Last Filed Vital Signs Vital Sign Reading Time Taken Comments Blood Pressure 115/65 04/07/2024 1:16 PM EST Pulse 90 04/07/2024 1:16 PM EST Temperature 36.9 ??C (98.4 ??F) 04/07/2024 1:16 PM ES T Respiratory Rate 14 04/07/2024 1:16 PM EST Oxygen Saturation 99% 04/07/2024 1:16 PM EST Inhaled Oxygen Concentration - - Weight 134 kg (295 lb 3.2 oz) 04/07/2024 1:16 PM EST Height - - Body Mass Index 50.67 12/04/2023 2:05 PM EDT documented in this encounter Progress Notes * JAMES Garcia - 04/07/2024 1:00 PM EST Subjective Patient ID: Bria Nevarez is a 43 y.o. female who presents for sick visit. HPI Pt here today for sick visit ?ROX from trulicity. PMX of Morbid Obesity s/p Laparoscopic Sleeve Gastrectomy,ANGELA, DM2,HTN, Paroxysmal A.Fib on AC, PCOS, Left Knee OA s/p ACL reconstruction,Depression,Lumbosacral and Cervical Radiculopathy,CTS .Asthma, GERD, Anemia,hx of shingles,Urinary incontinence Per triage Pt reports a rash , blistery, bumpy ,red and painful , which appears like acne along the jaw line and occurs every time Pt receives trulicity injection. Pt started trulicity 11/22/23 and was taking 1.5mg as prescribed at that time (only visitor services information assistant found on chart). Pt reports thatwas an increased dose and since the increase Pt has been getting this rash with every injection. Interestingly, per PCP note 11/2023 Metformin - discontinued due to redness of face from records Patient reports rash as above as above. Has history of hormonal acne and PCOS. Has noticed that acne has been worse with Trulicity. Notes that takes medication on Sunday and by Sunday symptoms haveimproved but on Sunday after taking shot acne has again worsened. Reports that menses have been regular or as regular as they always have been. Also having right heel pain not worse in morning. Happens randomly. Pain is sharp. Feels like it is in the bone. Does follow with Dr. San for podiatry. Walks with cane at baseline. Lab Results Component Value Date HGBA1C 7.2 (H) 06/20/2023 Former smoker Review of Systems Constitutional: Negative for chills and fever. HENT: Negative for sore throat. Respiratory: Negative for cough and shortness of breath. Cardiovascular: Negative for chest pain. Gastrointestinal: Negative for constipation and diarrhea. Endocrine: Negative for polydipsia, polyphagia and polyuria. Genitourinary: Negative for dysuria. Musculoskeletal: Positive for arthralgias. Skin: Positive for rash. Objective BP 115/65 (BP Location: Left arm, Patient Position: Sitting, BP Cuff Size: Adult long) Pulse 90 Temp 98.4 ??F (36.9 ??C) (Temporal) Resp 14 Wt 295 lb 3.2 oz (134 kg) SpO2 99% BMI 50.67 kg/m?? Physical Exam Vitals reviewed. Constitutional: General: She is not in acute distress. Appearance: Normal appearance. She is obese. She is not ill-appearing. HENT: Head: Normocephalic and atraumatic. Eyes: General: No scleral icterus. Extraocular Movements: Extraocular movements intact. Pupils: Pupils are equal, round, and reactive to light. Cardiovascular: Rate and Rhythm: Normal rate. Pulmonary: Effort: Pulmonary effort is normal. No accessory muscle usage or respiratory distress. Skin: Comments: Inflammatory acne on chin and jawline Neurological: Mental Status: She is alert and oriented to person, place, and time. Comments: Ambulates with cane Psychiatric: Mood and Affect: Mood normal. Behavior: Behavior normal. Assessment/Plan Diagnoses and all orders for this visit: Rash Suspect ROX to Trulicity. Type 2 diabetes mellitus with microalbuminuria, without long-term current use of insulin ([facility]) Lab Results Component Value Date HGBA1C 7.2 (A) 04/07/2024 A1c remains above goal < 7.0. Given ROX to Trulicity will trial Ozempic. Given A1c above goal, will rx equivalent to dose increase. Patient to continue using Trulicity in the meantime until Ozempic approved. Will use OTC BP wash and salicylic acid for acne and let us know if this is not improving. - POCT HGB A1C - semaglutide (Ozempic) 2 MG/1.5ML solution pen-injector; Inject 1 mg under the skin 1 (one) time per week. Pain of right heel - XR Foot 1-2 Views Right; Future documented in this encounter Plan of Treatment Scheduled Orders Name Type Priority Associated Diagnoses Orde r Schedule XR Foot 1-2 Views Right Imaging Routine Pain of right heel Expected: 04/07/2024, Expires: 04/07/2025 documented as of this encounter Procedures Procedure Name Priority Date/Time Associated Diagnosis Comments POCT GLYCATED HEMOGLOBIN, TOTAL Routine 04/07/2024 1:38 PM EST Type 2 diabetes mellitus with microalbuminuria, without long-term current use of insulin ([facility]) documented in this encounter Results * (ABNORMAL) POCT HGB A1C (04/07/2024 1:38 PM EST) Hemoglobin A1C 7.2(A) 4.0 - 6.0 % QC Media Lot # [id number] Lot# Expiration Date ,945 Blood 04/07/2024 1:38 PM EST Althea RAMIREZ POINT OF CARE TEST ENTER/EDIT OR DERABLES Final Result documented in this encounter Visit Diagnoses Diagnosis Rash- Primary Rash and other nonspecific skin eruption Type 2 diabetes mellitus with microalbuminuria, without long-term current use of insulin ([facility]) Pain of right heel documented in this encounter Additional Health Concerns Assessment Noted Time PHQ-9 Depression Total Score: 18 024 12:25 PM EST documented as of this encounter Care Teams Voice Studies Director Relationship Specialty Start Date End Date Shruti Campos MD [address] [place] [phone] PCP - General Internal Medicine 05/11/23 documented as of this encounter
--- OUTSIDE RECORDS SUMMARY | 2024-04-07 19:00 | XMS_ITS | Encounter Summary ---
Author Organization [employer] Address [address] [facility] [address] [place] [address] Care Team Providers Care Inclined Railway Operator Name Role Phone Shruti Campos MD Primary Care Pro vider Encounter Details Date Type Department Care Team (Late st Contact Info) Description 04/07/2024 Orders Only GENERIC EXTERNAL DATA DEPARTMENT Provider, Generic External Data Social History Tobacco Use Types Packs/Day Years [...] on file documented as of this encounter Procedures Procedure Name Priority Date/Time Associated Diagnosis Comments PROTHROMBIN TIME WHOLE BLD POC Routine 04/07/2024 2:40 PM EST ~PT, ~INR - ANTI COAG CLINIC Routine 04/07/2024 2:40 PM EST documented in this encounter Results * (ABNORMAL) PROTHROMBIN TIME WHOLE BLD POC (04/07/2024 2:40 PM EST) Protime 30.4(H) 11.1 - 13.5 sec [facility] 04/07/2024 2:40 PM EST 04/07/2024 2:42 PM EST us Generic External Data Provider LAB BLOOD ORDERAB LES Final Result Performing Organization Address City/State/[facility] Co de Phone Number [facility] [address] [place] [phone] * (ABNORMAL) ~PT, ~INR - ANTI COAG CLINIC (04/07/2024 2:40 PM EST) Prothrombin Time INR 2.5(H) 0.9 - 1.1 [facility] Comment:METER #: [id number] TERNATIONAL NORMALIZED RATIO (INR) REFERENCE RANGES Reference RangeFor patients not on anticoagulant therapy: 0.9 - 1.1INR ranges for oral anticoagulanttherapy:For prevention and treatment of venous thrombosis and pulmonary embolism: 2.0 - 3.0For acute myocardial infarction with aspirin therapy: 2.0 - 3.0For acute myocardial infarction without aspirin therapy: 3.0 - 4.0For patients with mechanical prosthetic heart valves: 2.5 - 3.5 04/07/2024 2:40 PM EST 04/07/2024 2:42 PM EST us Generic External Data Provider LAB BLOOD ORDERAB LES Final Result [facility] [address] [place] [address] [phone] documented in this encounter Visit Diagnoses Not on filedocumented in this encounter Additional Health Concerns Assessment Noted Time PHQ-9 Depression Total Score: 18 024 12:25 PM EST documented as of this encounter Care Teams Inclined Railway Operator Relationship Specialty Start Date End Date Shruti Campos MD [address] [place] [phone] PCP - General Internal Medicine 05/11/23 documented as of this encounter
--- OUTSIDE RECORDS SUMMARY | 2024-04-07 19:00 | XMS_ITS | Encounter Summary ---
Author Organization [employer] Address [address] [facility] [address] [place] [address] Care Team Providers Care Operations Architect Name Role Phone Shruti Campos MD Primary Care Pro vider Reason for Visit * Reason Onset Date Comments Med Refill 02/18/2024 Encounter Details Date Type Department Care Team (Late st Contact Info) Description 02/18/2024 Refill [facility] [address] [place] [phone] Shruti Campos MD [address] [place], [place] [phone] Social History Tobacco Use Types Packs/Day Years [...] documented as of this encounter Care Teams Operations Architect Relationship Specialty Start Date End Date Shruti Campos MD [address] [place] [phone] PCP - General Internal Medicine 05/11/23 documented as of this encounter
--- OUTSIDE RECORDS SUMMARY | 2024-04-07 19:00 | XMS_ITS | Encounter Summary ---
Author Organization [facility] Address [address] [place] [address] Care Team Providers Care District Court Administrator Name Role Phone Paul Mix MD Primary Care Provider [phone] Lisette Murillo Primary Care Provider [phone] Encounter Details Date Type Department Care Team ([facility] st Contact Info) Description 08/24/2014 Orders Only [facility] [address] [place] [phone] Estephania Skelton, KSENIA [address] [place] [address] Social History Tobacco Use Types Packs/Day Years [...] on file documented as of this encounter Progress Notes * Jaimee Martin, RN - 08/28/2014 3:50 PM EDTQuick Note: Recorded on problem list. * Jaimee Martin, MANUEL - 08/28/2014 3:49 PM EDTQuick Note: To provider for review. Pap-results needing colposcopy/followup: Given LGSIL noted in pap smear > 25year old: If HPVunknown/HRHPV+, colposcopy. Attempted to reach pt, lmom, see TE 08/28/14. * Jaimee Martin RN - 08/25/2014 2:26 PM EDTQuick Note: To provider for review. documented in this encounter Plan of Treatment Not on file documented as of this encounter Procedures * Due to [place] [employer] law, this organization might not be sharing negative HIV tests. Procedure Name Priority Date/Time Associated Diagnosis Comments SUREPATH FPGS,HPV,CT/GC PANEL Routine 08/24/2014 4:01 PM EDT Encounter for routine gynecological examination HEPATITIS C AB WITH REFLEX TO RNA PCR, SERUM Routine 08/24/2014 1:40 PM EDT Encounter for routine gynecological examination RPR, (RAPID PLASMIN REAGIN) WITH REFLEX TO FTA, DIAGNOSTIC Routine 08/24/2014 1:40 PM EDT Encounter for routine gynecological examination documented in this encounter Results * Due to [place] [employer] law, this organization might not be sharing negative HIV tests. * (ABNORMAL) SUREPATH FPGS,HPV,CT/GC PANEL (08/24/2014 4:01 PM EDT) Clinical information NONE GIVEN [facility] Comment:{CLINICAL INFORMATIO N: {[id number]) Date last menstrual period [id number] [facility] Comment:{LMP: {[id number]) Date of previous PAP smear NONE GIVEN [facility] Comment:{PREV. PAP: {[id number]) Date of previous biopsy NONE GIVEN [facility] Comment:{PREV. BX: {[id number]) Specimen source (Cvx/Vag) Cervix, Endocervix [facility] Comment:{SOURCE: {[id number]) Statement of Adequacy (Cvx/Vag) Satisfactory for evaluation. Endocervical/hearn sformation zone component absent. [facility] Comment:{STATEMENT OF ADEQUA CY: {[id number]) General categories (Cvx/Vag) EPITHELIAL CELL ABNORMALITY(A) [facility] Comment:{GENERAL CATEGORIZAT ION: {[id number]) Cytology, Pap Smear Low Grade Squamous Intraepithelial Lesion (LSIL)(A) [facility] Comment:{INTERPRETATION/RESU LT: {[id number]) Cytology study comment (Cvx/Vag) This Pap test has been evaluated with computer assisted technology. [facility] Comment:{COMMENT: {[id number]) Blender Helper (Cvx/Vag) MPG, CT(ASCP) [facility] Comment:{ROCK LATHER: { [id number]) Pathologist (Cvx/Vag) Lorena Mcgrath M.D., Board Certified in Anatomic and Clinical Pathology (electronic signature) Consulting Pathologist [facility] [address] [place] [address] [facility] Comment:{PATHOLOGIST: {[id number]) HPV MRNA E6/E7 Detected(A) Not Detected [facility] Comment: {HPV mRNA E6/E7, SUREPATH VIAL {[id number]) This test was performed using the APTIMA HPV Assay ([employer] This assay detects E6/E7 viral messenger RNA (mRNA) from 14 high-risk HPV types (16,18,31,33,35,39,45,51,52,56,58,59,66,68). The analytical performance characteristics of this assay, when used to test SurePath specimens, have been determined by [facility] Chlamydia trachomatis rRNA NOT DETECTED NOT DETECTED [facility] Comment:{CHLAMYDIA TRACHOMAT IS RNA, TMA {[id number]) Neisseria Gonorrhoeae rRNA NOT DETECTED NOT DETECTED [facility] Comment:{NEISSERIA GONORRHOE AE RNA, TMA {[id number]) COMMENT SEE NOTE [facility] Comment: {COMMENT {[id number]) This test was performed using the APTIMA COMBO2 Assay ([employer] The analytical performance characteristics of this assay, when used to test SurePath specimens have been determined by [facility]. 08/24/2014 4:01 PM EDT 08/25/2014 1:12 AM EDT Narrative Resulting Agency Comment [id number] Estephania Skelton [facility] Aissatou l Result Performing Organization Address [facility] Co de Phone Number [facility] [address] [place] [address] * RPR, (RAPID PLASMIN REAGIN) WITH REFLEX TO FTA, DIAGNOSTIC (08/24/2014 1:40 PM EDT) Reagin Ab NON-REACT LEIGH ANN NON-REACT LEIGH ANN [facility] Comment:{RPR (DX) W/REFL TIT ER AND CONFIRMATORY TESTING {[id number]) 08/24/2014 1:40 PM EDT 08/25/2014 12:58 AM EDT Narrative Resulting Agency Comment [id number] Estephania Nafisa [facility] Final Res ult Performing Organization Address [facility] Co de Phone Number [facility] [address] [phone] * HEPATITIS C ANTIBODY, SERUM (08/24/2014 1:40 PM EDT) Hepatitis C virus Ab NON-REACTI VE NON-REACT LEIGH ANN [facility] Comment:{HEPATITIS C ANTIBOD Y {[id number]) Hepatitis C virus Ab Signal/Cutoff 0.07 <1.00 [facility] Comment:{SIGNAL TO CUT-OFF { [id number]) 08/24/2014 1:40 PM EDT 08/25/2014 12:58 AM EDT Narrative Resulting Agency Comment [id number] [facility] Final Res ult Performing Organization Address City/[facility] Co de Phone Number [facility] [address] [place] [address] documented in this encounter Visit Diagnoses Diagnosis Encounter for routine gynecological examination Routine gynecological examination documented in this encounter Care Teams District Court Administrator Relationship Specialty Start Date End Date Paul Mix MD [facility] [address] [address] PCP - General 05/25/09 11/19/14 Lisette Murillo [facility] [address] [place] [address] PCP - General Internal Medicine 11/20/14 documented as of this encounter
--- OUTSIDE RECORDS SUMMARY | 2024-04-07 19:00 | XMS_ITS | Clinical Summary ---
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 Follow up with [facility] in 2-3 weeks to discuss management of [...] scheduled for 05/01 at 11:15 AM at [facility] Essential hypertension 04/23/2017 Assessment & Plan [...] cramp 03/28/2018 01/20/2022 Bilateral leg pain 03/28/2018 Numbness and tingling in both hands 03/28/2018 [...] asymptomatic. Recommend follow up with Dr. Liriano -[facility] in 2-3 weeks after discharge. Patient to [...] PRN for SOB - Supplemental O2 by AL for O2 sats <92 - Dextromorphan PRN [...] lower leg 08/20/2009 01/20/2022 Overview (04/10/2019): . Encounters Date Type Department Care Team Description 03/25/2024 [facility] 4th floor Cardiology Medicine [address] [place] [id number] Sports Marketer: Carmen Smith DO from Last 3 Months Immunizations Name Administration Dates Next Due INFLUENZA, SPLIT VIRUS, TRIVALENT, PF 11/29/2010 Influenza, Trivalent, MDV, Injectable 01/22/2012 Tetanus Toxoid, Reduced Diph theria Toxoid, and Acellular Pertussis Vaccine, Adsorbed 08/29/2011 Tetanus and Diphtheria Toxoi ds, Adsorbed, Preservative Free (2 Lf of Tetanus Toxoid and 2 Lf of Diphtheria Toxoid) 04/16/2017 Family History Medical History Relation Name Comments No Known Problems Brother Hypertension Father Hypertension Mother No Known Problems Son Relation Name Status Comments Brother Alive Father Alive Mother Alive Son Alive Social History Tobacco Use Types Packs/Day Years [...] 08/24/2022 1:46 PM EDT Plan of Treatment Health Maintenance Due Date Last Done Comments Pneumococcal Vaccine: Pediat ju (0-5 Years) and At-Risk Patients (6-64 Years) (1 of 2 - PCV) 11/07/1985 Ophthalmology Exam 11/07/1989 Urine Microalbumin 11/07/1989 Mammogram 2019 Pap Smear 08/08/2020 08/08/2017, 09/02/2010 Cervical Cancer Screening 08/08/2022 HPV and Pap Smear 08/08/2022 08/08/2017, 09/02/2010 Hemoglobin A1C 09/05/2022 06/05/2022, 08/10, 05/18/2021, Additional history exists Basic Metabolic Panel 06/03/2023 06/02/2022 , 01/24/2022, 08/02/2021, Additional history exists COVID-19 Vaccine (1 - 2023-2 5 season) 2023 Influenza Vaccine (#1) 2023 01/22/2012, 2010 Alcohol/Substance Use Screening 03/12/2024 Depression Evaluation 03/12/2024 Social Drivers of Health Sofia ual Screening 03/12/2024 DTaP,Tdap,and Td Vaccines (3 - Td or Tdap) 04/16/2027 04/16/2017, 08/29/2011 RSV Vaccine (60+ years old a nd patients) (1 - 1-dose 75+ series) 11/07/2054 HIV Screening Completed 09/02/2010 Hepatitis C Screening Completed 09/16/2010 Hepatitis B Vaccines Discontinued Varicella Vaccines Discontinued Procedures * Due to [place] [employer] law, this organization might not be sharing negative HIV tests. Procedure Name Priority Date/Time Associated Diagnosis Comments POCT HEMOGLOBIN A1C, CMG, NON-INTERFACED Routine 06/05/2022 11:58 AM EDT Type 2 diabetes mellitus with other specified complication, unspecified whether mcfp insulin use (CMS/HCC) (HCC) BASIC METABOLIC PANEL STAT 06/02/2022 12:15 PM EDT [facility] W/HPV, MRNA E6/E7, REFLEX 16/18/45 Routine 08/08/2017 11:00 AM EDT Screening for malignant neoplasm of cervix Screening for human papillomavirus HEPATITIS C ANTIBODY, CONVERSION Routine 09/16/2010 12:21 PM EDT from Last 3 Months or Most Recently Relevant to Health Maintenance Results * Due to [place] [employer] law, this organization might not be sharing negative HIV tests. * (ABNORMAL) POCT Hemoglobin A1C, non-interfaced (06/05/2022 11:58 AM EDT) POCT Hemoglobin, A1C 6.6(A) 0 - 5.6 % Blood 06/05/2022 11:5 8 AM EDT us Ellis Lee MD POINT OF CARE TEST ORDERABLES Final Result * (ABNORMAL) BMP - Basic Metabolic Panel (06/02/2022 12:15 PM EDT) NA 133(L) 136 - 145 mmol/L 06/02/2022 1:07 PM EDT [facility] K 3.9 3.5 - 5.3 mmol/L 06/02/2022 1:07 PM EDT [facility] Cl 105 98 - 107 mmol/L 06/02/2022 1:07 PM EDT [facility] CO2 26 22 - 30 mmol/L 06/02/2022 1:07 PM EDT [facility] BUN 13 7 - 18 mg/dL 06/02/2022 1:07 PM EDT [facility] Creatinine 0.98 0.60 - 1.30 mg/dL 06/02/2022 1:07 PM EDT [facility] Glucose 129(H) 70 - 99 mg/dL 06/02/2022 1:07 PM EDT [facility] Calcium 9.6 8.5 - 10.1 mg/dL 06/02/2022 1:07 PM EDT [facility] Anion Gap 2(L) 5 - 15 06/02/2022 1:07 PM EDT [facility] eGFR 74(L) >=90 mL/min/1. 73m2 06/02/2022 1:07 PM EDT [facility] Comment: Estimated Glomerular Filtration Rate (GFR) [...] Vazquez MD LAB BLOOD ORDERABLES Final Result Performing Organization Address City/State/[facility] Co de Phone Number [facility] [address] [place] [address], * (ABNORMAL) [facility] w/HPV, mRNA E6/E7, Reflex 16/18/45 (08/08/2017 11:00 AM EDT) [facility] TIS, mRNA E6/E7 Jessica See Below(A) [employer] Comment: TIS,mRNA E6/E7 JESSICA ?? CLINICAL INFORMATION: ? None given ?? LMP: ? 07/11/17 ?? PREV. PAP: ? 2010 PAP LGSIL ?? PREV. BX: ? NONE GIVEN ?? SOURCE: ? Cervix, Endocervix ?? STATEMENT OF ADEQUACY: ? Satisfactory for evaluation. ? Endocervical/transformation zone component ? present. ?? GENERAL CATEGORIZATION: ? EPITHELIAL CELL ABNORMALITY ?? INTERPRETATION/RESULT: ? Low Grade Squamous Intraepithelial Lesion (LSIL) ?? COMMENT: ? This Pap test has been evaluated with computer ? assisted technology. ?? ADMINISTRATIVE JOB TITLES: ? MPG, CT(ASCP) ? CT screening location: [facility] ? [address] ? [place], [place] ??[address] ?? PATHOLOGIST: ? Maxwell Oreilly M.D. Direct , ? Board Certified in Anatomic and Clinical ? Pathology and Cytopathology ? (electronic signature) ? Consulting Pathologist ? [facility] ? [address] ? [place] [address] ? [phone] ?? HPV mRNA E6/E7 ? Not Detected ? REFERENCE RANGE: Not Detected ? This test was performed using the APTIMA HPV Assay ([employer] ? This assay detects E6/E7 viral messenger [...] [address] [facility] [address], [place] [address], [place] [phone] [employer] [address], [place] [address], [place] [phone] * HEPATITIS C ANTIBODY, CONVERSION (09/16/2010 12:21 PM EDT) Hepatitis C Antibody <0.02 <1.00 IV [facility] Comment: Negative Not infected with HCV, unless recent infection is suspected or other evidence exists to indicate HCV infection. 09/16/2010 12:2 1 PM EDT 09/16/2010 1:08 PM EDT us Paula Valdez MD LAB HISTORICAL RESULTS F inal Result [facility] [address] [place] [address], [place] from Last 3 Months or Most Recently Relevant to Health Maintenance Insurance [employer] [facility] Advance Directives Documents on File Type Date Recorded Patient Clinical Training Specialist Expl 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
--- OUTSIDE RECORDS SUMMARY | 2024-04-07 19:00 | XMS_ITS | Encounter Summary ---
Author Organization [employer] Address [address] [address] [place] [address] Care Team Providers Care Telephone Lineworker Name Role Phone Shruti Campos MD Primary Care Pro vider Reason for Visit * Reason Comments Med Change Request Encounter Details Date Type Department Care Team ([facility] Contact Info) Description 02/12/2024 Refill [facility] [address] [place], [place] [phone] Shruti Campos MD [address] [place], [place] [phone] Social History Tobacco Use Types Packs/Day Years [...] documented as of this encounter Care Teams Telephone Lineworker Relationship Specialty Start Date End Date Shruti Campos MD [address] [place] [phone] PCP - General Internal Medicine 05/11/23 documented as of this encounter
--- OUTSIDE RECORDS SUMMARY | 2024-04-07 19:00 | XMS_ITS | Clinical Summary ---
Author Organization [employer] Address [address] [place] [address] 7[address] [place] [address] Care Team Providers Care Gluing Machine Adjuster Name Role Phone Shruti Campos MD Primary Care Pro vider Allergies Active Allergy Reactions Criticality Noted Date Comments Lisinopril Cough High 12/17/2016 Itchy throat-cough Medications * This document contains information received from the source organization and may not represent a complete record from that organization. metoprolol succinate XL (Toprol-XL) 25 MG 24 hr tablet Take 25 mg by mouth in the morning. 04/09/19 24 Active Multiple Vitamin (multivitamin) capsule Take 1 capsule by mouth Once per day. Active methocarbamol (Robaxin) 500 MG tablet PLEASE SEE ATTACHED FOR DETAILED DIRECTIONS 06/30/19 24 Active dilTIAZem CD (Cardizem CD) 120 MG 24 hr capsule TAKE 1 CAPSULE BY MOUTH EVERY DAY 90 capsule 1 10/09/19 24 Active diazePAM (Valium) 2 MG tabletIndicati ons:Anxiety Take 1 tablet (2 mg) by mouth 1 (one) time for 1 dose. 1 tablet 11/22/19 24 Active linaCLOtide (Linzess) 145 MCG capsule Take 1 capsule (145 mcg) by mouth before breakfast. Do not crush or chew. 30 capsule 1 11/22/19 24 025 Active dulaglutide (Trulicity) 1.5 MG/0.5ML solution pen-injector Inject 1.5 mg under the skin 1 (one) time per week. 4 each 11 11/22/19 24 Active Bisacodyl EC 5 MG EC tablet TAKE 1 TABLET BY MOUTH IF NEEDED EACH DAY FOR CONSTIPATION. DO NOT CRUSH, CHEW, OR SPLIT. 90 tablet 1 11/26/19 24 Active loratadine (Claritin) 10 MG tablet TAKE 1 TABLET BY MOUTH EVERY DAY 90 tablet 1 11/26/19 24 Active docusate sodium (Colace) 100 MG capsule Take 1 capsule (100 mg) by mouth Once per day. 90 capsule 12/25/19 24 Active Misc. Devices (Pulse Oximeter) misc 1 Device Once per day. 1 each 12/27/19 24 Active atorvastatin (Lipitor) 10 MG tablet TAKE 1 TABLET BY MOUTH EVERY DAY 90 tablet 1 12/28/19 24 Active cholecalcifero l (Vitamin D-3) 50 MCG (2000 UT) capsule TAKE 1 CAPSULE BY MOUTH EVERY DAY 90 capsule 1 01/15/20 24 Active ferrous gluconate (Fergon) 324 (38 Fe) MG tablet TAKE 1 TABLET BY MOUTH THREE TIMES A WEEK 36 tablet 1 01/15/20 24 Active omeprazole (PriLOSEC) [address] capsule TAKE 1 CAPSULE BY MOUTH EVERY DAY 90 capsule 1 01/15/20 24 Active cloNIDine (Catapres) 0.2 MG tablet TAKE 1 TABLET BY MOUTH TWICE A DAY 180 tablet 1 01/15/20 24 Active DULoxetine (Cymbalta) [address] capsule TAKE 1 CAPSULE (20 MG) BY MOUTH ONCE PER DAY. DO NOT CRUSH OR CHEW. 60 capsule 1 02/18/20 24 025 Active Ventolin HFA 108 (90 Base) MCG/ACT inhaler INHALE 2 PUFFS EVERY 6 HOURS IF NEEDED FOR WHEEZING. 18 g 2 02/20/20 24 Active GaviLAX 17 GM/SCOOP powder TAKE 17 G BY MOUTH ONCE PER DAY 510 g 2 02/22/20 24 Active losartan (Cozaar) 25 MG tablet TAKE 1 TABLET BY MOUTH EVERY DAY 90 tablet 03/15/19 25 Active warfarin (Coumadin) 2 MG tablet TAKE 1 TO 3 TABLETS BY MOUTH DAILY DIRECTED BY COUMADIN CLINIC. 90 tablet 1 03/26/19 25 Active semaglutide (Ozempic) 2 MG/1.5ML solution pen-injectorIn dications:Type 2 diabetes mellitus with microalbuminur ia, without long-term current use of insulin ([facility]) Inject 1 mg under the skin 1 (one) time per week. 2 each 12 04/07/19 25 Active losartan (Cozaar) 25 MG tablet Take 1 tablet (25 mg) by mouth Once per day. 90 tablet 09/06/19 24 025 Discontinued warfarin (Coumadin) 2 MG tablet Take 1-3 tabs daily as directed at coumadin clinic 90 tablet 1 12/26/19 24 025 Discontinued Active Problems Problem Noted Date Diagnosed Date Skin lesion 11/22/2023 Constipation 11/22/2023 Urinary incontinence 11/22/2023 Anemia 07/05/2023 History of shingles 07/05/2023 Health care maintenance 05/13/2023 Bilateral carpal tunnel syndrome 05/11/2023 Cervical radiculopathy 01/20/2022 Lumbosacral radiculopathy 01/20/2022 S/P laparoscopic sleeve gastrectomy 01/20/2022 Morbid obesity 09/22/2019 HAMLET (generalized anxiety disorder) 04/10/2019 Major depressive disorder, recurrent, moderate 0 04/10/2019 Assessment & Plan (05/15/2023 8:31 AM EST): PLAN: (check all that apply) Further services needed, but declined Behavioral Health Integration Plan External OP therapy referral Patient Self Plan Patient to utilize skills provided in intervention , [facility] as needed, and Patient to reach out to [facility] as needed Mild intermittent asthma 04/10/2019 Glaucoma of left eye 02/15/2019 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 DIC panel showed FDP 10-40, Fibrinogen 357 wnl, d-dimer elevated to 3.73. Pelvic ultrasound showed retroperitoneal hematoma in cul-de-sac measuring 13.6cm x 6cm. INR 1.1 reversed on 07/14/17 with stable H/H. Gynecology consulted and no need for surgical intervention and clot will absorb on its own. Follow up with ELECTR[facility]INUITY INSPECTOR in 2-3 weeks to discuss management of ovarian cysts. Recommend tylenol and ibuprofen for pain and short prescription of oxycodone 5mg Q6H PRN for severe pain. ANGELA (obstructive sleep apnea) 04/24/2017 Type 2 diabetes mellitus wit h microalbuminuria, without long-term current use of insulin 04/24/2017 Overview (05/11/2023): Last Assessment & Plan: Newly diagnosed type 2 diabetes mellitus. Hemoglobin A1C on admission was 6.8, glucose levels 180-200. In setting of elevated creatinine and IV contrast given on 04/22, we will recommend a less nephrotoxic medication than metformin. - Continue glipizide 2.5mg qhs - BG levels now within good range - Continue SSI - Patient educated about diet and lifestyle modifications, nutrition saw pt 04/25 Essential hypertension 04/23/2017 Overview (05/11/2023): Last Assessment & Plan: Continue home clonidine 0.2 mg 3 times [...] amlodipine for BP control with her PCP. Paroxysmal atrial fibrillation 04/23/2017 Overview (05/11/2023): Last Assessment & Plan: Chads Vasc score equal to 3 secondary to sex, hypertension and diabetes. Warfarin was held due to acute bleeding from hemorraghic ovarian cyst. INR was reversed with IV vitamin K and 3 units of FFP. Warfarin held at time of discharge. Recommend restarting warfarin in 2 weeks. Patient to follow up with PCP regarding restarting warfarin. Recommend restarting in 2 weeks. Post traumatic stress disorder (PTSD) 12/22/2016 LGSIL on Pap smear of cervix 08/28/2014 Overview (05/11/2023): 08/24/14: LGSIL, +HPV - plan colpo 08/24/14: LGSIL, +HPV - plan colpo S/P ACL reconstruction 11/16/2011 Encounters Date Type Department Care Team Description 04/07/2024 1:00 PM EST Office Visit [facility] [address] [place] [address] Althea Chilel, ANP Rash (Primary Dx); Type 2 diabetes mellitus with microalbuminuria, without long-term current use of insulin ([facility]); Pain of right heel 04/07/2024 Orders Only GENERIC EXTERNAL DATA DEPARTMENT Provider, Generic External Data 04/07/2024 Travel 04/01/2024 Telephone [facility] [address] [place] [place] [address] Shruti Campos MD Nurse Triage 03/26/2024 Refill [facility] [address] [place] [address] Shruti Campos MD 03/14/2024 Orders Only GENERIC EXTERNAL DATA DEPARTMENT Provider, Generic External Data 03/13/2024 Refill [facility] [address] [place] [address] Shruti Campos MD 02/22/2024 Refill [facility] [address] [place] [address] Shruti Campos MD 02/20/2024 Refill [facility] [address] [facility] [place] [address] Shruti Campos MD 02/18/2024 Refill [facility] [address] [place] [address] Shruti Campos MD 02/15/2024 Refill [facility] [address] [place] [address] Shruti Campos MD 02/15/2024 Orders Only GENERIC EXTERNAL DATA DEPARTMENT Provider, Generic External Data 02/12/2024 Refill [facility] [address] [address] [facility] [place] [address] Shruti Campos MD 02/01/2024 Orders Only GENERIC EXTERNAL DATA DEPARTMENT Provider, Generic External Data 01/24/2024 Orders Only GENERIC EXTERNAL DATA DEPARTMENT Provider, Generic External Data 01/21/2024 Telephone [facility] [address] [facility] [place] [address] Shruti Campos MD Anticoagulation 01/21/2024 Orders Only GENERIC EXTERNAL DATA DEPARTMENT Provider, Generic External Data 01/20/2024 Refill [facility] [address] [facility] [place] [address] Rosana Jaramillo MD 01/14/2024 Refill [facility] [address] [place] [address] Shruti Campos MD 01/14/2024 Refill [facility] [address] [place] [address] Shruti Campos MD from Last 3 Months Immunizations Name Administration Dates Next Due Influenza, IIV3, injectable 01/22/2012 Influenza, seasonal, injectable, preservative fr ee 11/29/2010 TD (adult), 2 Lf tetanus tox oid, preservative free, adsorbed 04/16/2017 Tdap 08/29/2011 Family History Medical History Relation Name Comments DM2 Father heart dx Father unspecified ca Maternal Grandfather Grave's dx Mother breast ca in 60s Mother's Sister Relation Name Status Comments Father Maternal Grandfather Mother Mother's Sister Social History Tobacco Use Types Packs/Day Years Used Date Smoking Tobacco: Former Cigarettes Tobacco Cessation:Counseling Given: Not Answered Comments:Started tobacco smoking 17 y and stopped at her 29 [...] Orientation Straight 05/11/2023 11 :30 AM EST Last Filed Vital Signs Vital Sign Reading [...] 3.2 oz) 04/07/2024 1:16 PM EST Height 162.6 cm (5' 4 ) 12/04/2023 2:05 PM EDT Body Mass Index 50.67 12/04/2023 2:05 PM EDT Plan of Treatment Health Maintenance Due Date Last Done Comments Lipid Panel 1980 Pneumococcal Vaccine: Pediatrics (0 to 5 Years) and At-Risk Patients (6 to 64 Years) (1 of 2 - PCV) 11/07/1985 Diabetes: Foot Exam 11/07/1989 Eye Exam 11/07/1989 Alcohol/Substance Use Screening 1991 Hepatitis B Vaccines (1 of 3 - 19+ 3-dose series) 11/07/1998 COVID-19 Vaccine (2023-2 5 season) 2023 Depression Monitoring (PHQ-9) 11/11/2023, 05/11/2023 Influenza Vaccine (#1) 2023 2, 11/29/2010 SDOH Screening 05/03/2024 05/03/2023 Depression Screening 05/10/2024 05/11/2023, 05/11/2023 Tobacco Screening 05/10/2024 05/11/2023 Diabetes: Hemoglobin A1C 07/06/2024 025, 06/20/2023 Cervical Cancer Screening 12/03/2024 Family Planning (PISQ) 12/03/2024 12/04/2023 HPV/Cotest 12/03/2024 12/04/2023 Pap Smear 12/03/2024 12/04/2023 Mammogram 08/09/2025 08/10/2023 DTaP/Tdap/Td Vaccines (3 - T d or Tdap) 04/16/2027 04/16/2017, 08/29/2011 Zoster Vaccines (1 of 2) 11/07/2029 RSV Patients and Patients Aged 60 years or older (1 - 1-dose 75+ series) 11/07/2054 HIV Screening Completed 06/20/2023 Hepatitis C Screening Completed 06/20/2023 HIB Vaccines Aged Out No longer eligi ble based on patient's age to complete this topic HPV Vaccines Aged Out No longer eligi ble based on patient's age to complete this topic Hepatitis A Vaccines Aged Out No long er eligible based on patient's age to complete this topic IPV Vaccines Aged Out No longer eligi ble based on patient's age to complete this topic Meningococcal Vaccine Aged Out No jose roberto costa eligible based on patient's age to complete this topic RSV under 20 months Aged Out No longe r eligible based on patient's age to complete this topic Rotavirus Vaccines Aged Out No longer eligible based on patient's age to complete this topic Procedures Procedure Name Priority Date/Time Associated Diagnosis Comments PROTHROMBIN TIME WHOLE BLD POC Routine 04/07/2024 2:40 PM EST ~PT, ~INR - ANTI COAG CLINIC Routine 04/07/2024 2:40 PM EST POCT GLYCATED HEMOGLOBIN, TOTAL Routine 04/07/2024 1:38 PM EST Type 2 diabetes mellitus with microalbuminuria, without long-term current use of insulin (CMS/HCC) PROTHROMBIN TIME WHOLE BLD POC Routine 03/14/2024 3:45 PM EST ~PT, ~INR - ANTI COAG CLINIC Routine 03/14/2024 3:45 PM EST PROTHROMBIN TIME WHOLE BLD POC Routine 02/15/2024 1:58 PM EST ~PT, ~INR - ANTI COAG CLINIC Routine 02/15/2024 1:58 PM EST PROTHROMBIN TIME WHOLE BLD POC Routine 02/01/2024 2:24 PM EST ~PT, ~INR - ANTI COAG CLINIC Routine 02/01/2024 2:24 PM EST PROTHROMBIN TIME WHOLE BLD POC Routine 01/24/2024 1:46 PM EST ~PT, ~INR - ANTI COAG CLINIC Routine 01/24/2024 1:46 PM EST PROTHROMBIN TIME WHOLE BLD POC Routine 01/21/2024 11:21 AM EST ~PT, ~INR - ANTI COAG CLINIC Routine 01/21/2024 11:21 AM EST THINPREP IMAGING PAP AND HPV MRNA E6/E7 Routine 12/04/2023 2:30 PM EDT BI MAMMOGRAM SCREENING TOMOSYNTHESIS BILATERAL Routine 08/10/2023 11:20 AM EDT Breast cancer screening by mammogram HEPATITIS C AB W/REFL TO HCV RNA, QN, PCR Routine 06/20/2023 1:38 PM EDT Annual physical exam HIV 1/2 ANTIGEN/ANTIBODY, FOURTH GENERATION W/RFL Routine 06/20/2023 1:38 PM EDT Annual physical exam from Last 3 Months or Most Recently Relevant to Health Maintenance Results * (ABNORMAL) PROTHROMBIN TIME WHOLE BLD POC (04/07/2024 2:40 PM EST) Only the most recent of6 resultswithin the time period is included. Pathologist [facility] Protime 30.4(H) 11.1 - 13.5 sec [facility] 04/07/2024 2:40 PM EST 04/07/2024 2:42 PM EST Generic External Data Provider LAB BLOOD ORDERAB LES Final Result Performing Organization Address [facility] Co de Phone Number [facility] [address] [place] [phone] * (ABNORMAL) ~PT, ~INR - ANTI COAG CLINIC (04/07/2024 2:40 PM EST) Only the most recent of6 resultswithin the time period is included. [facility] Prothrombin Time INR 2.5(H) 0.9 - 1.1 [facility] Comment:METER #: [id number] TERNATIONAL NORMALIZED RATIO (INR) REFERENCE RANGES Reference [...] 2:40 PM EST 04/07/2024 2:42 PM EST [employer] External Data Provider LAB BLOOD ORDERAB LES Final Result Performing Organization Address [facility] Co de Phone Number [facility] [address] [place] [address] [phone] * (ABNORMAL) POCT HGB A1C (04/07/2024 1:38 PM EST) [facility] Hemoglobin A1C 7.2(A) 4.0 - 6.0 % QC Media Lot # [id number] Lot# Expiration Date [id number] Blood 04/07/2024 1:38 PM EST Althea RAMIREZ POINT OF CARE TEST ENTER/EDIT OR DERABLES Final Result * ThinPrep Imaging Pap and HPV mRNA E6/E7 (12/04/2023 2:30 PM EDT) HPV nRNA E6/E7 Not Detected Not Detected [facility] Comment:Methodology: Transcr iption-Mediated AmplificationThis assay detects E6/E7 viral messenger RNA (mRNA) from 14high-risk HPV types (16,18,31,33,35,39,45,51,52,56,58,59,66,68).Cervical sources are required for HPV testing.If a vaginal source from a patient who has had atotal hysterectomy with removal of cervix wassubmitted, please contact the testing laboratoryfor alternative testing options.For additional information, please refer [email or web address](This link if provided for information/educational purposes only.)THIS TEST WAS PERFORMED AT:[facility] [place] [phone] GONZALEZ MD SOURCE: SEE NOTE [facility] Comment:None given Report Status: [facility] Clinical Information: SEE NOTE [facility] Comment:None given LMP: SEE NOTE [facility] Comment:NONE GIVEN Prev. PAP: SEE NOTE [facility] Comment:NONE GIVEN Prev. BX: SEE NOTE [facility] Comment:NONE GIVEN Statement Of Adequacy: SEE NOTE [facility] Comment:Satisfactory for laureano luation.Endocervical/transformation zone component absent. General Categorization: [facility] Interpretation/Result: SEE NOTE [facility] Comment:Cytology Results: Ne gative for intraepitheliallesion or malignancy. Cytology Comment SEE NOTE [facility] Comment:This Pap test has be en evaluated with computerassisted technology. Fish Egg Packer: SEE NOTE [facility] Comment:DCR, CT(ASCP)CT scre ening location: [place] [address] Review Fish Egg Packer: TNP [facility] Pathologist TNP [facility] PAP Infection SEE NOTE [facility] Comment:Shift in vaginal amrik ra suggestive of bacterialvaginosis. See Note SEE NOTE [facility] Comment:EXPLANATORY NOTE:The Pap is a screening test for cervical cancer. It isnot a diagnostic test and is subject to false negativeand false positive results. It is most reliable when asatisfactory sample, regularly obtained, is submittedwith relevant clinical findings and history, and whenthe Pap result is evaluated along with historic andcurrent clinical information. 12/04/2023 2:30 PM EDT 12/04/2023 6:04 PM EDT Narrative [facility] - 12/07/2023 12:53 PM EDT SEE SCANNED RESULTS IN EMR us Pam Guzman CNM LAB PATHOLOGY ORDERABLES Final Result [facility] [address] [place] [address] [phone] * BI Mammogram Screening Tomosynthesis Bilateral (08/10/2023 11:20 AM EDT) Anatomical Region Laterality Modality Breast Bilateral Mammography 08/10/2023 11:2 0 AM EDT Narrative 08/28/2023 1:48 PM EDT ? [facility] ? [address] ?[place] [address] ? Mammography Report ? Signed ? Patient: Geri,Bria N ?MR#: [id number] ?? [id number] ? : 1980 ?Acct:[id number] ? Age/Sex: 42 / F ?ADM Date: 05/31/24 ? Loc: HO.MAMMO ? Attending Dr: Shruti Mccain MD ? Ordering Physician: Shruti Campos MD ?Re ?? sults: 1Negative ? Date of Service: 08/10/23 ?Follow Up: 1 Year From Orig ?? inal Mammogram ? Procedure(s): MM tomosynthesis screening BI ?? Accession Number(s): [id number] ? cc: Shruti Campos MD ? EXAMINATION: ?? MM SCREENING DIGITAL BREAST TOMOSYNTHESIS, BILATERAL ? CLINICAL INFORMATION: ? Screening. Asymptomatic. ? COMPARISON: ?? Mammography: This is a baseline examination. ? TECHNIQUE: ?? Digital breast tomosynthesis is performed in both the craniocaudal and ?? mediolateral oblique views along with computer-aided detection (CAD). ?? Synthesized 2D images are generated from the tomosynthesis. ? FINDINGS: ?? The breasts are almost entirely fatty (ACR BI-RADS breast composition ?? Category a). ? There are no significant masses, abnormal calcifications, or other ?? abnormalities. ? MM/MM tomosynthesis screening BI ?? IMPRESSION: ?? No mammographic evidence of malignancy. ? ASSESSMENT: ? BI-RADS BI-RADS 1 - Negative ? RECOMMENDATION: ?? Routine annual mammography screening. ? 1 year F/U ? This examination should not preclude the clinical evaluation of a ?? suspicious palpable abnormality. ? This patient's information was entered into a reminder system with a ?? target due date for their next mammogram. ? Dictated By: ?Justyna Astorga MD ? Signed By: ?<Electronically signed by Justyna Astorga MD in OV> ? 08/28/23 1344 ? DD/ 1120 ? TD/TT: ? Physician Assistant Psychiatry: ? Procedure Note Donotfernandezter, Image - 08/28/2023 Dal[facility] [address] [place], [place] [address] Mammography Report Signed Patient: Bria Nevarez NMR#: [id number] : 1980Acct:[id number] Age/Sex: 42 / FADM Date: 08/10/23 Loc: MAMMO Attending Dr: Shruti Mccain MD Ordering Physician: Shruti Campos sults: 1Negative Date of Service: 08/10/23Follow Up: 1 Year From Orig inal Mammogram Procedure(s): MM tomosynthesis screening BI Accession Number(s): [id number] cc: Shruti Campos MD EXAMINATION: MM SCREENING DIGITAL BREAST TOMOSYNTHESIS, BILATERAL CLINICAL INFORMATION: Screening. Asymptomatic. COMPARISON: Mammography: This is a baseline examination. TECHNIQUE: Digital breast tomosynthesis is performed in both the craniocaudal and mediolateral oblique views along with computer-aided detection (CAD). Synthesized 2D images are generated from the tomosynthesis. FINDINGS: The breasts are almost entirely fatty (ACR BI-RADS breast composition Category a). There are no significant masses, abnormal calcifications, or other abnormalities. MM/MM tomosynthesis screening BI IMPRESSION: No mammographic evidence of malignancy. ASSESSMENT: BI-RADS BI-RADS 1 - Negative RECOMMENDATION: Routine annual mammography screening. 1 year F/U This examination should not preclude the clinical evaluation of a suspicious palpable abnormality. This patient's information was entered into a reminder system with a target due date for their next mammogram. Dictated By: Justyna Astorga MD Signed By: <Electronically signed by Justyna Astorga MD in OV> 08/28/23 1344 DD/ 1120 TD/TT: Physician Assistant Psychiatry: us Shruti Handy MD IMG BI PROCEDURES Final Result * Hepatitis C Antibody with Reflex to HCV, RNA, Quantitative, Real-Time PCR (06/20/2023 1:38 PM EDT) [facility] Hepatitis C Antibody Nonreactive Nonreactive [facility] Comment:Antibodies to HCV no t detected; does not exclude early acuteHCV infection. Blood Venous blood specimen / Unknown 06/20/2023 1:38 PM EDT 06/20/2023 1:38 PM EDT Shruti Handy MD LAB BLOOD ORDERAB LES Final Result Performing Organization Address [facility] Co de Phone Number [facility] [address] [place] [phone] * HIV-1/2 Antigen and Antibodies, Fourth Generation, with Reflexes (06/20/2023 1:38 PM EDT) [facility] HIV AB/AG Nonreactive Nonreactive [facility] Comment:HIV-1 p24 Ag and/or HIV-1/HIV-2 Ab not detected.A test result that is nonreactive does not exclude thepossibility of exposure to or infection with HIV-1 and/orHIV-2. Nonreactive results in this assay for individualswith prior exposure to HIV-1 and/or HIV-2 may be due toantigen and antibody levels that are below the limit ofdetection of this assay.[employer] HIV Ag/Ab Combo assay result andsupplemental assay results should be interpreted inconjunction with the patient's clinical presentation,history and other laboratory results. If the results areinconsistent with clinical evidence, additional testing issuggested to confirm the result. Blood Venous blood specimen / Unknown 06/20/2023 1:38 PM EDT 06/20/2023 1:38 PM EDT Shruti Handy MD LAB BLOOD ORDERAB LES Final Result Performing Organization Address City/[facility]/ZIP Co de Phone Number [facility] [address] [place] [phone] from Last 3 Months or Most Recently Relevant to Health Maintenance Insurance [facility] C3 Care Teams Gluing Machine Adjuster Relationship Specialty Start Date End Date Shruti Campos MD [address] [place] [address] PCP - General Internal Medicine 05/11/23
--- OUTSIDE RECORDS SUMMARY | 2024-04-07 19:00 | XMS_ITS | Encounter Summary ---
Author Organization [employer] Address [address] [facility] [address] [place] [address] Care Team Providers Care Mlt Name Role Phone Shruti Campos MD Primary Care Pro vider Reason for Visit * Reason Comments Med Refill Encounter Details Date Type Department Care Team ([facility] st Contact Info) Description 01/14/2024 Refill [facility] MEDICINE [address] [place], [place] [phone] Shruti Campos MD [address] [place], [place] [phone] Social History Tobacco Use Types Packs/Day Years [...] documented as of this encounter Care Teams Mlt Relationship Specialty Start Date End Date Shruti Campos MD [address] [place] [id number] PCP - General Internal Medicine 05/11/23 documented as of this encounter
--- OUTSIDE RECORDS SUMMARY | 2024-04-07 19:00 | XMS_ITS | Encounter Summary ---
Author Organization [employer] Address [address] [facility] [address] [place] [address] Care Team Providers Care Lapel Baster Name Role Phone Shruti Campos MD Primary Care Pro vider Reason for Visit * Reason Onset Date Comments Nurse Triage 04/01/2024 Encounter Details Date Type Department Care Team ([facility] st Contact Info) Description 04/01/2024 Telephone [facility] MEDICINE [address] [place], [place] [phone] Shruti Campos MD [address] [place], [place] [phone] Nurse Triage Social History Tobacco Use Types Packs/Day Years [...] encounter Miscellaneous Notes * Telephone Encounter - Mariana Delaney RN - 04/01/2024 4:00 PM EST Triage call Pt reports a rash , blistery, bumpy ,red and painful , which appears like acne along the jaw line and occurs every time Pt receives trulicity injection. Pt started trulicity 11/22/23 and was taking 1.5mg as prescribed at that time (only information security officer found on chart). Pt reports thatwas an increased dose and since the increase Pt has been getting this rash with every injection. Ptwould like to see provider to discuss this. ASK apt with JAMES Chilel 04/07/24 @ 100pm. Pt agrees with this disposition. Insurance is verified as active prior to booking. Protocol Used: Rash or Redness - Localized (Adult) Protocol-Based Disposition: See in Office or Video Visit Today Override (Final) Disposition: See in Office or Video Visit within 2 Weeks Override Reason: Other Video visit not offered Positive Triage Question: * Localized rash is very painful (no fever) * All higher-acuity triage questions were negative Care Advice Discussed: * Reassurance and Education - Mild Localized Rash * Wash the Area * Cold Pack for Mild Itching or Mild Pain * Reasons To Call Back - Rash spreads or becomes worse - Rash lasts longer than 1 week - You become worse * Telephone Encounter - Clara Torres - 04/01/2024 2:02 PM EST Tc from pt stating those symptoms came after every shot of Trulicity Pen Injector. Symptom: Rash or Redness on One Body Area Only Outcome: Schedule an urgent appointment (within 4 hours) or talk to a nurse or provider soon Reason: Skin is painful to touch The caller accepted this outcome. [phone] documented in this encounter Plan of Treatment Not on file documented as of this encounter Visit Diagnoses Not on filedocumented in this encounter Additional Health Concerns Assessment Noted Time PHQ-9 Depression Total Score: 18 024 12:25 PM EST documented as of this encounter Care Teams Lapel Baster Relationship Specialty Start Date End Date Shruti Campos MD [address] [place] [phone] PCP - General Internal Medicine 05/11/23 documented as of this encounter
--- OUTSIDE RECORDS SUMMARY | 2024-04-07 19:00 | XMS_ITS | Encounter Summary ---
Author Organization [facility] Address [address] [place] [address] Care Team Providers Care Iron Piler Name Role Phone Unavailable Primary Care Provider Unavailabl e Reason for Visit * Reason Comments Med Refill Encounter Details Date Type Department Care Team (Late st Contact Info) Description 03/25/2024 Refill [facility] 4th floor Cardiology Medicine [address] [place] [address] Shutdown Planner: Carmen Smith DO [address] [place] [address] Social History Tobacco Use Types Packs/Day Years Used Date Smoking Tobacco: Former Cigarettes 0.3 10 0 05/26/2007 - 05/25/2017 Smokeless Tobacco: Never Comments:: Alcohol Use Standard Drinks/Week Comments No 0 (1 standard drink = 0.6 oz pur e alcohol) Comments No Sex and Gender Information Value Date Recorded Sex Assigned at Female 08/18/2021 1:58 PM EDT Legal Sex Female 9:20 AM EDT Gender Identity Female 08/18/2021 1:58 PM EDT Sexual Orientation Straight 08/18/2021 1: 58 PM EDT documented as of this encounter Miscellaneous Notes * Telephone Encounter - Tresa Kolb - 03/28/2024 9:30 AM EST Sent letter to pt to schedule an appt documented in this encounter Plan of Treatment Not on file documented as of this encounter Visit Diagnoses Not on filedocumented in this encounter
--- OUTSIDE RECORDS SUMMARY | 2024-04-07 19:01 | XMS_ITS | Encounter Summary ---
Author Organization [employer] Address [address] [facility] [address] [place] [address] Care Team Providers Care Housekeeping Attendant Name Role Phone Shruti Campos MD Primary Care Pro vider Reason for Visit * Reason Comments Med Refill Encounter Details Date Type Department Care Team ([facility] st Contact Info) Description 03/13/2024 Refill [facility] MEDICINE [address] [place], [place] [phone] Shruti Campos MD [address] [place], [place] [phone] Social History Tobacco Use Types Packs/Day Years [...] documented as of this encounter Care Teams Housekeeping Attendant Relationship Specialty Start Date End Date Shruti Campos MD [address] [place] [id number] PCP - General Internal Medicine 05/11/23 documented as of this encounter
--- OUTSIDE RECORDS SUMMARY | 2024-04-07 19:01 | XMS_ITS | Encounter Summary ---
Author Organization [employer] Address [address] [facility] 7[address] [place] [address] Care Team Providers Care Smash Piecer Name Role Phone Shruti Campos MD Primary Care Pro vider Encounter Details Date Type Department Care Team (Late st Contact Info) Description 03/14/2024 Orders Only GENERIC EXTERNAL DATA DEPARTMENT [...] Comments PROTHROMBIN TIME WHOLE BLD POC Routine 03/14/2024 3:45 PM EST ~PT, ~INR - ANTI COAG CLINIC Routine 03/14/2024 3:45 PM EST documented in this encounter Results * (ABNORMAL) PROTHROMBIN TIME WHOLE BLD POC (03/14/2024 3:45 PM EST) Protime 26.2(H) 11.1 - 13.5 sec [facility] 03/14/2024 3:45 PM EST 03/14/2024 3:46 PM EST us Generic External Data Provider LAB BLOOD ORDERAB LES Final Result Performing Organization Address City/State/[facility] Co de Phone Number [facility] [address] [place] [phone] * (ABNORMAL) ~PT, ~INR - ANTI COAG CLINIC (03/14/2024 3:45 PM EST) Prothrombin Time INR 2.2(H) 0.9 - 1.1 [facility] Comment:METER #: [id number] TERNATIONAL NORMALIZED RATIO (INR) REFERENCE RANGES Reference RangeFor patients not on anticoagulant therapy: 0.9 - 1.1INR ranges for oral anticoagulanttherapy:For prevention and treatment of venous thrombosis and pulmonary embolism: 2.0 - 3.0For acute myocardial infarction with aspirin therapy: 2.0 - 3.0For acute myocardial infarction without aspirin therapy: 3.0 - 4.0For patients with mechanical prosthetic heart valves: 2.5 - 3.5 03/14/2024 3:45 PM EST 03/14/2024 3:46 PM EST us Generic External Data Provider LAB BLOOD ORDERAB LES Final Result [facility] [address] [place] [address] [phone] documented in this encounter Visit Diagnoses Not on filedocumented in this encounter Additional Health Concerns Assessment Noted Time PHQ-9 Depression Total Score: 18 024 12:25 PM EST documented as of this encounter Care Teams Smash Piecer Relationship Specialty Start Date End Date Shruti Campos MD [address] [place] [phone] PCP - General Internal Medicine 05/11/23 documented as of this encounter
--- OUTSIDE RECORDS SUMMARY | 2024-04-07 19:01 | XMS_ITS | Encounter Summary ---
Author Organization [employer] Address [address] [facility] [address] [place] [address] Care Team Providers Care Deep Submergence Vehicle Operator Name Role Phone Shruti Campos MD Primary Care Pro vider Reason for Visit * Reason Onset Date Comments Durable Medical Equipment 10/09/2023 Encounter Details Date Type Department Care Team ([facility] st Contact Info) Description 10/09/2023 Telephone [facility] MEDICINE [address] [place], [place] [phone] Shruti Campos MD [address] [place], [place] [phone] Durable Medical Equipment Social History Tobacco Use Types Packs/Day Years [...] t he electric, gas, oil or water [employer] threatened to shut off services in your home? No 05/03/2023 Depression Answer Date Recorded Patient Health Questionnaire-2 Score 2 05/11/2023 Comments No Sex and Gender Information Value Date Recorded Sex Assigned at Female 10/06/2022 1:54 PM EDT Legal Sex Female 1:53 PM EDT Gender Identity Female 10/06/2022 1:54 PM EDT Sexual Orientation Don't know 05/11/2023 11 :30 AM EST Sexual Orientation Straight 05/11/2023 11 :30 AM EST documented as of this encounter Miscellaneous Notes * Telephone Encounter - Jason Katz - 10/09/2023 2:23 PM EDT Tc from patient requesting a script for CPAP Supplies that was issued by previous provider documented in this encounter Plan of Treatment Not on file documented as of this encounter Visit Diagnoses Not on filedocumented in this encounter Additional Health Concerns Assessment Noted Time PHQ-9 Depression Total Score: 18 024 12:25 PM EST documented as of this encounter Care Teams Deep Submergence Vehicle Operator Relationship Specialty Start Date End Date Shruti Campos MD [address] [place] [phone] PCP - General Internal Medicine 05/11/23 documented as of this encounter
--- OUTSIDE RECORDS SUMMARY | 2024-04-07 19:01 | XMS_ITS | Patient Health Record ---
Author Organization [facility] Address [address] [place] [address] Care Team Providers Care Brownfield Redevelopment Specialist Name Role Phone Ellis Lee Primary Care Provider UnavailTom Salguero Unavailable [phone] ALLERGIES Allergen (clinical drug ingredient) Drug/Non Drug Allergy documented on EMR Reaction Allergy Type Onset Date Status lisinopril Lisinopril cough Drug Allergy Activ e REASON FOR REFERRAL No Information MEDICATIONS Medication SIG (Take, Route, Frequency, Duration) Notes Start Date End Date Status cloNIDine HCl 0.2 MG 1 tablet Orally thr ee times a day Active amLODIPine Besylate 10 MG 1 tablet Orally Once a day Active Omeprazole 20 MG 1 capsule Orally prn Active glipiZIDE ER 2.5 MG TK 1 T PO QD WITH BR E Oral for 30 Active ProAir HFA 108 (90 Base) MCG/ACT 2 puffs as needed Inhalation every 4 hrs Active dilTIAZem HCl ER Beads 240 MG TK ONE C PO D Oral Active Losartan Potassium 25 MG 1 tablet Orally Once a day Active Warfarin Sodium 2.5 MG 1 tablet Orally O nce a day (pcp) Active SOCIAL HISTORY Tobacco Use: Social History Observation Description Date Details (start date - stop date) Former Smoker NA - NA Sex Assigned At : Social History Observation Description Sex Assigned At Unknown Tobacco Use/Smoking Question Answer Notes Are you a former smoker Alcohol Screen Question Answer Notes Did you have a drink containing alcohol in the p ast year? No Points 0 Interpretation Negative Section Notes: Former 1ppd every 2 to 3 day s for 10 years, quit 04/2015 Former 1ppd every 2 to 3 day s for 10 years, quit 04/2015 Former 1ppd every 2 to 3 day s for 10 years, quit 04/2015 Former 1ppd every 2 to 3 day s for 10 years, quit 04/2015 Former 1ppd every 2 to 3 day s for 10 years, quit 04/2015 Former 1ppd every 2 to 3 day s for 10 years, quit 04/2015 Former 1ppd every 2 to 3 day s for 10 years, quit 04/2015 Former 1ppd every 2 to 3 day s for 10 years, quit 04/2015 PROBLEMS Problem Type ICD Code Onset Dates Problem Status W/U Status Risk SNOMED Code Notes Problem Paroxysmal atrial fibrillation (I48.0) Active confirmed 719805679 Problem Mild intermittent asthma, uncomplicated (J45.20) Active confirmed 2 Mild intermittent asthma (949524512) Problem Obstructive sleep apnea (adult) (pediatric) (G47.33) Active confirmed Obstructive sleep apnea syndrome (disorder) (84005922) Problem Morbid (severe) obesity due to excess calories (E66.01) Active confirmed Morbid obesity (disorder) (201235738) Problem Adjustment disorder with anxiety (F43.22) Active confirmed Adjustment disorder with anxiety (56082003) Problem Anxiety (F41.9) Active confirmed 848303 02 Problem Essential hypertension (I10) Active confirmed Essential hypertension (50902195) Problem Accelerated hypertension (I10) Active confirmed 2 30637320 Problem ANGELA (obstructive sleep apnea) (G47.33) Active confirmed Obstructive sleep apnea syndrome (52072933) Problem Atrial fibrillation, unspecified type (I48.91) Active confirmed Atrial fibrillation (02705110) PLAN OF TREATMENT Pending Test Test Name Order Date Echocardiogram Hospital 06/11/2013 [facility] Hospital 04/24/2017 Electrocardiogram (EKG) 07/10/2016 Electrocardiogram (EKG) 03/30/2017 Electrocardiogram (EKG) 10/09/2018 Future Test Test Name Order Date Chem 7 (BUN, Cr, Lytes, Glu) 03/16/2017 Insurance Providers Payer Name Payer Address Payer Phone Subscriber Number Group Number Insured Name Patient Relationship to Insured Coverage Start Date Coverage End Date [employer] [address] [employer] [id number] Bria Morrison Self - patient is the insured 3 MEDICAL (GENERAL) HISTORY Medical History History ICD Code preserved LV function with EF 65-70% by echo Apr paroxysmal atrial fibrillati on, rate conrol/AC, [id number] = 2, HTN, female moderate to severe concentric LVH by ech o Apr resistant hypertension asthma obstructive sleep apnea obesity anxiety ruptured ovarian cyst/hemato ma peritoneum requiring reversal of oral anticoagulation July 2017
== END 2024-04-07 14:53 | disposition home or self-care (01) ==
LOC: HO.ACS 14:33
PROVIDERS: PCP Student in an Organized Health Care Education/Training Program; Visit Provider Internal Medicine
DX: Z79.01 Long term (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 (principal)

== ENCOUNTER → 2024-04-07 14:33 | Outpatient (BNVA) | payer MEDICAID, SELFPAY | PROVIDERS: PCP Student in an Organized Health Care Education/Training Program; Visit Provider Internal Medicine | DX: I48.91 Unspecified atrial fibrillation (principal); Z79.01 Long term (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; Z51.81 Encounter for therapeutic drug level monitoring | CPT/HCPCS: 85610; 99211 ==

== ENCOUNTER 2024-05-08 14:04 | Outpatient (AMB) | payer MEDICAID, SELFPAY ==
[2024-05-08 14:08] VITALS: BP 116/60; PULSE 93; BMI 49.9
--- NOTE | 2024-05-08 14:08 | MHC.OFFVIS ---
Vital Signs 05/08/24 14:08 Height 5 ft 4 in Weight 291 lb 0.163 oz BMI 49.9 BP 116/60 Blood Pressure Location Lt brachial Position Sitting Pulse 93 Pulse Source Monitor Intake Visit Reasons: F/U s/p CTA Allergies lisinopril Allergy (Mild, Verified 04/07/24 14:33) Cough Medication List - Last Reconciled 05/08/24 by Mejia Robertson NP albuterol sulfate 90 mcg/actuation (Ventolin HFA) 2 puffs inhalation Q6H PRN atorvastatin 10 mg PO DAILY bisacodyl 5 mg PO DAILY PRN cholecalciferol (vitamin D3) 50 mcg PO DAILY clonidine HCl 0.2 mg PO BID diltiazem HCl CD 120 mg PO DAILY docusate sodium 100 mg PO BID PRN dulaglutide (Trulicity) 1.5 mg subcut QWEEK ferrous gluconate 324 mg PO 3XW linaclotide (Linzess) 145 mcg PO QAM loratadine 10 mg PO DAILY lorazepam 0.5 mg PO QAM PRN losartan 25 mg PO DAILY metoprolol succinate ER 25 mg PO BID omeprazole 20 mg PO DAILY polyethylene glycol 3350 (Gavilax) 17 grams PO DAILY warfarin 2 mg See Protocol PO DIRECTED HPI Comments Details: This is a 43-year-old female patient presenting for a follow-up visit. Patient has past medical history of AFib diagnosed in 2018 for which she underwent a cardioversion and has not experienced any recurrence of AFib since. Patient is on warfarin, diltiazem, and metoprolol for this. Patient also has history of diabetes and is morbidly obese. Patient was recently seen in the office due to complaints of chest tightness, shortness of breath, and a fluttering sensation in her chest. In response, she underwent echocardiogram, a 14 day Holter monitor, and a coronary CTA for further evaluation. Today, the patient continues to report experiencing fluttering in her chest which she describes as distinct from her previous episodes of AFib. She notes that when she has these episodes she feels as though she is having choking sensation in her throat and experiences mild shortness of breath. Patient states that she has these symptoms mostly at rest and when lying down. However, the patient denies any symptoms of exertional chest pain, dizziness, fatigue, PND, leg edema, presyncope, or syncope. [facility] Medical History ANGELA (obstructive sleep apnea) Bilateral carpal tunnel syndrome Lumbosacral radiculopathy Cervical radiculopathy Morbid (severe) obesity due to excess calories Mild intermittent asthma, uncomplicated Acute glaucoma of left eye Chronic pain syndrome intermediate frame tender (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 Asymptomatic PVD (peripheral vascular disease) Surgical History Status post laparoscopic sleeve gastrectomy Family History Father Stroke Mother No problems noted. 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, LIVES WITH BOYFRIEND, SON AND BOYFRIEND'S SON Alcohol intake: never Patient Tobacco Use Status: Former Tobacco user Cigarette Packs Per Day: 0.5 Current occupational status: unemployed Current occupation: rt handed Current occupational exposures/hazards: No Review of Systems Const Denies weakness ENT Denies dizziness Card Reports chest pain, Denies chest pain with activity, Denies syncope, Denies rapid heart rate, Denies pedal edema, Denies edema, Denies leg edema, Denies lightheadedness, Reports palpitations, Denies dyspnea, Denies dyspnea on exertion and Denies orthopnea Resp Denies cough, Denies dyspnea and Denies dyspnea on exertion GI Denies hematochezia and Denies change in stool character Musc Denies abnormal gait, Denies muscle cramps, Denies muscle weakness, Denies numbness, Denies radiating pain into limb and Denies tingling Neuro Denies abnormal gait, Denies dizziness, Denies syncope, Denies numbness, Denies tingling and Denies weakness Endo Reports palpitations Physical Exam Vital Signs: Last Vital Signs Pulse 93 05/08/24 14:08 BP 116/60 05/08/24 14:08 BMI result Body Mass Index 49.9 Const General: cooperative, healthy appearing, comfortable and no acute distress Orientation/consciousness: patient oriented x3 HEENT Head: Yes normal to inspection Neck Neck: Yes normal visual inspection, Yes trachea midline and Yes supple Chest Chest palpation & inspection: normal inspection of the chest Resp Effort & Inspection: normal respiratory effort Auscultation: clear to auscultation bilaterally, no crackles, no rales, no rhonchi and no wheezes Cardio Jugular venous distension: no JVD Palpation: normal PMI Rate: regular rate Rhythm: regular rhythm Heart sounds: S1 normal heart sound present, S2 normal heart sound present, no click, no gallops, no murmurs and no rubs Peripheral pulses: Peripheral pulses 2+ throughout GI Inspection: Yes normal to inspection Palpation (GI): Soft to palpation Auscultation: normal bowel sounds Skin General skin exam: no rashes or lesions noted Neuro General: patient oriented x3 Extrem General: Yes normal to inspection, No no pedal edema and No calf tenderness Psych Appearance: grossly normal Mental Status: mental status grossly normal Speech and movement: Normal speech and movement present Office Procedures EKG Details: EKG today shows sinus rhythm with frequent PVCs, T-wave inversion inferiorly and anterolaterally, [place], [place]. [id number], Complete Assessment & Plan Assessment & Plan (1) Palpitations: Code(s): R00.2 - Palpitations Category: Medical Plan: 08/1923-echo showed normal EF 60-65% with mild asymmetric septal hypertrophy with impaired relaxation filling pattern, moderate mitral calcification. 11/26/2023-Holter monitor of 12 and half days showed underlying sinus rhythm with frequent ventricular ectopy. Patient's symptoms of fluttering in the chest are likely due to frequent PVCs and untreated sleep apnea. Patient is currently on 25 mg of metoprolol twice daily and takes an extra dose as needed for symptoms. If her symptoms persist, we may consider increasing the dose of beta yumi. Patient states she has not had any recent labs with her PCP. We will also obtain electrolyte levels and a TSH to evaluate for any other causes contributing to her symptoms. Emphasized on the importance of weight reduction to alleviate her symptoms. Additionally optimizing treatment for her sleep apnea was discussed. (2) CAD (coronary artery disease): Code(s): I25.10 - Atherosclerotic heart disease of [place] coronary artery without angina pectoris Category: Medical Plan: 04/15/2024-coronary CTA showed mild multivessel atherosclerotic coronary artery disease less than 50% in the LAD, circumflex, and RCA; with minimal calcific stenosis in the left main less than 25%. No recent LDL. Continue statin therapy. We will repeat labs and may need to increase the statin dose. Ideally goal less than 70. Most recent A1c 7.2. Patient reports that she will soon be trialing on Ozempic for weight loss as well as diabetes management. Ideally A1c goal for patient less than 7.0. (3) PAF (paroxysmal atrial fibrillation): Code(s): I48.0 - Paroxysmal atrial fibrillation Category: Medical Plan: Continue warfarin therapy for full anticoagulation. Continue diltiazem and metoprolol. EKG today was normal sinus rhythm. (4) ANGELA (obstructive sleep apnea): Code(s): G47.33 - Obstructive sleep apnea (adult) (pediatric) Category: Medical Plan: Patient states she was diagnosed with sleep apnea many years ago. Is not currently using a CPAP machine due to the mask not being right fit for her. Emphasize the need for compliance with CPAP therapy. We will refer her to Sleep Medicine. (5) Morbid (severe) obesity due to excess calories: Code(s): E66.01 - Morbid (severe) obesity due to excess calories Category: Medical Plan: Advised patient with heart healthy diet, regular exercise, and weight loss. Patient has had bariatric surgery in the past. Patient will follow-up in the office. In the interim, patient will call us with any concerns or change in symptoms. This note was generated using voice recognition software. While every effort has been made to ensure accuracy and proper paper bag machine operator, there may be occasional errors that could affect the content or meaning of the described symptoms. Orders: Orders Basic Metabolic Panel 05/08/24 I48.0 - Paroxysmal atrial fibrillation Lipid Panel 05/08/24 I25.10 - Atherosclerotic heart disease of [place] coronary artery without angina pectoris TSH reflex Free T4 05/08/24 I48.0 - Paroxysmal atrial fibrillation AMB EKG-In Office 05/08/24 I48.0 - Paroxysmal atrial fibrillation Referrals Sleep Medicine Referral G47.33 - Obstructive sleep apnea (adult) (pediatric) Coding Level of Care Code Est Pt Level 4 (07498) Diagnoses Palpitations R00.2 CAD (coronary artery disease) I25.10 PAF (paroxysmal atrial fibrillation) I48.0 ANGELA (obstructive sleep apnea) G47.33 Morbid (severe) obesity due to excess calories E66.01 CPT Codes EKG - CPT: 08407-[id number], Complete ([id number]) Time Spent (min) 32 Comment Time spent in reviewing the chart, test results, assessment, counseling and documentation.
--- OUTSIDE RECORDS SUMMARY | 2024-05-08 16:59 | XMS_ITS | Clinical Summary ---
Author Organization [employer] Address [address] [place] [address] [address] [place] [address] Care Team Providers Care Motorcycle Technician Name Role Phone Shruti Campos MD Primary [...] ATTACHED FOR DETAILED DIRECTIONS 06/30/19 24 Active linaCLOtide (Linzess) 145 MCG capsule Take 1 capsule (145 mcg) by mouth before breakfast. Do not crush or chew. 30 capsule 1 11/22/19 24 025 Active dulaglutide (Trulicity) 1.5 MG/0.5ML solution pen-injector Inject 1.5 mg under the skin 1 (one) time per week. 4 each 11/22/19 24 Active Bisacodyl EC 5 MG [...] EVERY DAY 90 tablet 03/15/19 25 Active semaglutide (Ozempic) 2 MG/1.5ML solution pen-injectorIn dications:Type 2 diabetes mellitus with microalbuminur ia, without long-term current use of insulin ([facility]) Inject 1 mg under the skin 1 (one) time per week. 2 each 12 04/07/19 25 Active diazePAM (Valium) 2 MG tabletIndicati ons:Anxiety Take 1 tablet (2 mg) by mouth 1 (one) time for 1 dose. 1 tablet 04/10/19 25 Active warfarin (Coumadin) 2 MG tablet TAKE 1 TO 3 TABLETS BY MOUTH DAILY DIRECTED BY COUMADIN CLINIC. 270 tablet 2 04/21/19 25 Active dilTIAZem CD (Cardizem CD) 120 MG 24 hr capsule TAKE 1 CAPSULE BY MOUTH EVERY DAY 90 capsule 1 04/25/19 25 Active dilTIAZem CD (Cardizem CD) 120 MG 24 hr capsule TAKE 1 CAPSULE BY MOUTH EVERY DAY 90 capsule 1 10/09/19 24 02/14/2 025 Discontinued diazePAM (Valium) 2 MG tabletIndicati ons:Anxiety Take 1 tablet (2 mg) by mouth 1 (one) time for 1 dose. 1 tablet 11/22/19 24 025 Discontinued(Re order (will not trigger notification to Pharmacy)) warfarin (Coumadin) 2 MG tablet TAKE 1 TO 3 TABLETS BY MOUTH DAILY DIRECTED BY COUMADIN CLINIC. 90 tablet 1 03/26/19 25 025 Discontinued Active Problems Problem Noted Date [...] intervention , Patient [facility], and Patient to reach out to [facility] as needed Mild intermittent asthma 04/10/2019 Glaucoma of left eye 02/15/2019 Chronic pain syndrome 01/20/2019 FDC (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 2017 PVD (peripheral [...] absorb on its own. Follow up with [facility] in 2-3 weeks to discuss management of [...] levels now within good range - Continue MD SSI - Patient educated about diet and [...] Encounters Date Type Department Care Team Description 04/25/2024 Refill [facility] [place] [address] Shruti Campos MD 04/22/2024 Telephone [facility] [place] [address] Shruti Campos MD Prior Authorization 04/19/2024 Refill [facility] [place] [address] Althea Chilel ANP 04/10/2024 Refill [facility] [place] [address] Shruti Campos MD Anxiety 04/08/2024 Telephone [facility] [place] [address] Shruti Campos MD Prior Authorization ( PA Request: [place]) 04/07/2024 1:00 PM EST Office Visit [facility] [place] [address] Althea Chilel ANP Rash (Primary Dx); Type 2 diabetes mellitus with microalbuminuria, without long-term current use of insulin ([facility]); Pain of right heel 04/07/2024 Orders Only GENERIC EXTERNAL DATA DEPARTMENT Provider, Generic External Data 04/07/2024 Travel 04/01/2024 Telephone [facility] [place] [address] Shruti Campos MD Nurse Triage 03/26/2024 Refill [facility] [place] [address] Shruti Capmos MD 03/14/2024 Orders Only GENERIC EXTERNAL DATA DEPARTMENT Provider, Generic External Data 03/13/2024 Refill [facility] [place] [address] Shruti Campos MD 02/22/2024 Refill [facility] [address] [facility], [place] [address] Shruti Campos MD 02/20/2024 Refill [facility] MEDICINE [address] [facility] [place], [place] [address] Shruti Campos MD 02/18/2024 Refill [facility] MED[facility]INE [address] [facility] [place] [address] Shruti Campos MD 02/15/2024 Refill [facility] MED[facility]INE [address] [facility] [place] [address] Shruti Campos MD 02/15/2024 Orders Only GENERIC EXTERNAL DATA DEPARTMENT Provider, Generic External Data 02/12/2024 Refill [facility] MED[facility]INE [address] [facility] [place], [place] [address] Shruti Campos MD from Last 3 Months [...] Date Last Done Comments Lipid Panel 1979 Diabetes: Foot Exam 11/07/1989 Alcohol/Substance Use Screening 1991 Hepatitis B Vaccines (1 of 3 - 19+ 3-dose series) 11/07/1998 Pneumococcal Vaccine: Pediatrics (0 to 5 Years) and At-Risk Patients (6 to 49) Years) (1 of 2 - PCV) 11/07/1998 COVID-19 Vaccine ( - 2023-2 5 season) 2023 Depression Monitoring (PHQ-9) 11/11/2023, 05/11/2023 Influenza Vaccine (#1) 2023 2, 11/29/2010 SDOH Screening 05/03/2024 05/03/2023 Depression Screening 05/10/2024 05/11/2023, 05/11/2023 Tobacco Screening 05/10/2024 05/11/2023 Diabetes: Hemoglobin A1C 07/06/2024 025, 06/20/2023 Cervical Cancer Screening 12/03/2024 Family Planning (PISQ) 12/03/2024 12/04/2023 HPV/Cotest 12/03/2024 12/04/2023 Pap Smear 12/03/2024 12/04/2023 Mammogram 08/09/2025 08/10/2023 Eye Exam 08/12/2025 08/13/2023 DTaP/Tdap/Td Vaccines (3 - T d or [...] COAG CLINIC Routine 02/15/2024 1:58 PM EST THINPREP IMAGING PAP AND HPV MRNA E6/E7 Routine 12/04/2023 2:30 PM EDT AMB REFERRAL TO OPHTHALMOLOGY Routine 08/13/2023 Type 2 diabetes mellitus with microalbuminuria, without long-term current use of insulin (CMS/HCC) BI MAMMOGRAM SCREENING TOMOSYNTHESIS BILATERAL Routine 08/10/2023 [...] 2:40 PM EST) Only the most recent of3 resultswithin the time period is included. Protime 30.4(H) 11.1 - 13.5 sec [facility] 04/07/2024 2:40 PM EST 04/07/2024 2:42 PM EST Generic External Data Provider LAB BLOOD ORDERAB LES Final Result Performing Organization Address [facility] Co de Phone Number [facility] [address] [place] [phone] * (ABNORMAL) ~PT, ~INR - ANTI COAG CLINIC (04/07/2024 2:40 PM EST) Only the most recent of3 resultswithin the time period is included. Prothrombin Time INR 2.5(H) 0.9 - 1.1 [facility] Comment:METER #: [id number] TERNATIONAL NORMALIZED RATIO (INR) REFERENCE RANGES Reference [...] 2:40 PM EST 04/07/2024 2:42 PM EST Angelantoni External Data Provider LAB BLOOD ORDERAB LES Final Result Performing Organization Address [facility] Co de Phone Number [facility] [address] [place] [phone] * (ABNORMAL) POCT HGB A1C (04/07/2024 1:38 PM EST) Hemoglobin A1C 7.2(A) 4.0 - 6.0 % QC Media Lot # [id number] Lot# Expiration Date Blood 04/07/2024 1:38 PM EST us Althea Chilel ANP POINT OF CARE TEST ENTER/EDIT OR DERABLES Final Result * [facility] Pap and HPV mRNA E6/E7 (12/04/2023 2:30 PM EDT) HPV nRNA E6/E7 Not Detected Not Detected [facility] Comment:Methodology: Transcr iption-Mediated AmplificationThis assay detects E6/E7 viral messenger RNA (mRNA) from 14high-risk HPV types (16,18,31,33,35,39,45,51,52,56,58,59,66,68).Cervical sources are required for HPV testing.If a vaginal source from a patient who has had atotal hysterectomy with removal of cervix wassubmitted, please contact the testing laboratoryfor alternative testing options.For additional information, please refer tohttp://education.Cancer Genetics/faq/CGH345x4(This link if provided for information/educational purposes only.)THIS TEST WAS PERFORMED AT:[facility] [address] [id number] GONZALEZ MD SOURCE: SEE NOTE [facility] Comment:None given Report Status: [facility] Clinical Information: SEE NOTE [facility] Comment:None given LMP: SEE NOTE [facility] Comment:NONE GIVEN Prev. PAP: SEE NOTE [facility] Comment:NONE GIVEN Prev. BX: SEE NOTE [facility] Comment:NONE GIVEN Statement Of Adequacy: SEE [facility] Comment:Satisfactory for laureano luation.Endocervical/transformation zone component absent. General Categorization: [facility] Interpretation/Result: SEE NOTE [facility] Comment:Cytology Results: Ne gative for intraepitheliallesion or malignancy. Cytology Comment SEE NOTE [facility] Comment:This Pap test has be en evaluated with computerassisted technology. Blurb Writer: SEE NOTE [facility] Comment:DCR, CT(ASCP)CT scre ening location: [place] [address] Review Blurb Writer: [facility] Pathologist [facility] PAP Infection SEE NOTE [facility] Comment:Shift in vaginal amrik ra suggestive of bacterialvaginosis. See Note SEE [facility] Comment:EXPLANATORY NOTE:The Pap is a screening test for cervical cancer. It isnot a diagnostic test and is subject to false negativeand false positive results. It is most reliable when asatisfactory sample, regularly obtained, is submittedwith relevant clinical findings and history, and whenthe Pap result is evaluated along with historic andcurrent clinical information. 12/04/2023 2:30 PM EDT 12/04/2023 6:04 PM EDT Narrative [facility] - 12/07/2023 12:53 PM EDT SEE SCANNED RESULTS IN EMR us Pam Guzman [facility] PATHOLOGY ORDERABLES Final Result [facility] [address] [place] [address] [phone] * Referral to Ophthalmology (08/13/2023) us Shruti Handy MD OUTPATIENT REFERR AL ORDERABLES Final Result * BI Mammogram Screening Tomosynthesis Bilateral (08/10/2023 11:20 AM EDT) Anatomical Region Laterality Modality Breast Bilateral Mammography 08/10/2023 11:2 0 AM EDT Narrative 08/28/2023 1:48 PM EDT ? [facility] [place] [facility] ?[place] [address] ? Mammography Report ? Signed ? Patient: Geri,Bria N ?MR#: [id number] ?? [id number] ? : 1980 ?Acct:[id number] ? Age/Sex: 42 / F ?ADM Date: 05/31/24 ? Loc: HO.MAMMO ? Attending Dr: Shruti Mccain MD ? Ordering Physician: Shruti Campos MD ?Re ?? sults: 1Negative ? Date of Service: 08/10/23 ?Follow Up: 1 Year From Orig ?? inal Mammogram ? Procedure(s): MM tomosynthesis screening BI ?? Accession Number(s): [id number] ? cc: Shruti Campos MD ? EXAMINATION: [...] by Justyna Astorga MD in OV> ? 06/18/24 1344 ? DD/ 1120 ? TD/TT: ? Marine Equipment Sales Engineer: ? Procedure Note Donotuseinterpreter, Image - 08/28/2023 [facility] [address] [place] [address] Mammography Report Signed Patient: Bria Nevarez NMR#: [id number] : 1980Acct:[id number] Age/Sex: 42 / FADM Date: 08/10/23 Loc: HO.MAMMO Attending Dr: Shruti Mccain MD Ordering Physician: Shruti Campos sults: 1Negative Date of Service: 08/10/23Follow Up: 1 Year From Orig inal Mammogram Procedure(s): MM tomosynthesis screening BI Accession Number(s): [id number] cc: Shruti Campos MD EXAMINATION: MM SCREENING [...] in OV> 08/28/23 1344 DD/ 1120 TD/TT: Marine Equipment Sales Engineer: us Shruti Handy MD IMG BI PROCEDURES Final Result * Hepatitis C Antibody with Reflex to HCV, RNA, Quantitative, Real-Time PCR (06/20/2023 1:38 PM EDT) Hepatitis C Antibody Nonreactive Nonreactive [facility] Comment:Antibodies to HCV no t detected; does not exclude early acuteHCV infection. Blood Venous blood specimen / Unknown 06/20/2023 1:38 PM EDT 06/20/2023 1:38 PM EDT Shruti Handy MD LAB BLOOD ORDERAB LES Final Result Performing Organization Address City/[facility] Co de Phone Number [facility] [address] [place] [address] [phone] * HIV-1/2 Antigen and Antibodies, Fourth Generation, with Reflexes (06/20/2023 1:38 PM EDT) Pathologist [facility] HIV AB/AG Nonreactive Nonreactive [facility] Comment:HIV-1 p24 Ag and/or HIV-1/HIV-2 Ab not detected.A test result that is nonreactive does not exclude thepossibility of exposure to or infection with HIV-1 and/orHIV-2. Nonreactive results in this assay for individualswith prior exposure to HIV-1 and/or HIV-2 may be due toantigen and antibody levels that are below the limit ofdetection of this assay.The [employer] HIV Ag/Ab Combo assay result andsupplemental assay results should be interpreted inconjunction with the patient's clinical presentation,history and other laboratory results. If the results areinconsistent with clinical evidence, additional testing issuggested to confirm the result. Blood Venous blood specimen / Unknown 06/20/2023 1:38 PM EDT 06/20/2023 1:38 PM EDT Shruti Handy MD LAB BLOOD ORDERAB LES Final Result Performing Organization Address [facility]/ZIP Co de Phone Number [facility] [address] [place] [phone] [phone] from Last 3 Months or Most Recently Relevant to Health Maintenance Insurance [facility] C3 Care Teams Motorcycle Technician Relationship Specialty Start Date End Date Shruti Campos MD [address] [place] [phone] PCP - General Internal Medicine 05/11/23
--- OUTSIDE RECORDS SUMMARY | 2024-05-08 16:59 | XMS_ITS | Encounter Summary ---
Author Organization [employer] Address [address] [facility] [address] [place] [address] Care Team Providers Care Cone Treater Name Role Phone Shruti Campos MD Primary Care Pro vider Reason for Visit * Reason Onset Date Comments Med Refill 02/18/2024 Encounter Details Date Type Department Care Team (Late st Contact Info) Description 02/18/2024 Refill [facility] MEDICINE [address] [place] [address] [phone] Shruti Campos MD [address] [place], [place] [phone] Social History Tobacco Use Types Packs/Day Years [...] documented as of this encounter Care Teams Cone Treater Relationship Specialty Start Date End Date Shruti Campos MD [address] [place] [phone] PCP - General Internal Medicine 05/11/23 documented as of this encounter
--- OUTSIDE RECORDS SUMMARY | 2024-05-08 16:59 | XMS_ITS | Encounter Summary ---
Author Organization [employer] Address [address] [facility] [address] [place] [address] Care Team Providers Care Maxillofacial Prosthodontist Name Role Phone Shruti Campos MD Primary Care Pro vider Reason for Visit * Reason Comments Med Refill Encounter Details Date Type Department Care Team ([facility] st Contact Info) Description 12/16/2023 Refill [facility] MEDICINE [address] [place], [place] [phone] Shruti Campos MD [address] [place], [place] [phone] Social History Tobacco Use Types Packs/Day Years [...] documented as of this encounter Care Teams Maxillofacial Prosthodontist Relationship Specialty Start Date End Date Shruti Campos MD [address] [place] [phone] PCP - General Internal Medicine 05/11/23 documented as of this encounter
--- OUTSIDE RECORDS SUMMARY | 2024-05-08 16:59 | XMS_ITS | Encounter Summary ---
Author Organization [employer] Address [address] [facility] [address] [place] [address] Care Team Providers Care Lithographic Proofer Name Role Phone Shruti Campos MD Primary Care Pro vider Reason for Visit * Reason Comments Med Change Request Encounter Details Date Type Department Care Team ([facility] Contact Info) Description 02/12/2024 Refill [facility] [address] [place], [place] [phone] Shruti Campos MD [address] [place], [place] [phone] Social History Tobacco Use Types Packs/Day Years [...] documented as of this encounter Care Teams Lithographic Proofer Relationship Specialty Start Date End Date Shruti Campos MD [address] [place] [phone] PCP - General Internal Medicine 05/11/23 documented as of this encounter
--- OUTSIDE RECORDS SUMMARY | 2024-05-08 16:59 | XMS_ITS | Encounter Summary ---
Author Organization [employer] Address [address] [facility] [address] [place] [address] Care Team Providers Care Home Appraiser Name Role Phone Shruti Campos MD Primary Care Pro vider Reason for Visit * Reason Onset Date Comments Nurse Triage 04/01/2024 Encounter Details Date Type Department Care Team ([facility] st Contact Info) Description 04/01/2024 Telephone [facility] MEDICINE [address] [place], [place] [phone] Shruti Campos MD [address] [place], [place] [phone] Nurse Triage Social History Tobacco Use Types [...] 1.5mg as prescribed at that time (only medical information specialist found on chart). Pt reports thatwas an [...] to touch The caller accepted this outcome. [phone] documented in this encounter Plan of Treatment Not on file documented as of this encounter Visit Diagnoses Not on filedocumented in this encounter Additional Health Concerns Assessment Noted Time PHQ-9 Depression Total Score: 18 024 12:25 PM EST documented as of this encounter Care Teams Home Appraiser Relationship Specialty Start Date End Date Shruti Campos MD [address] [place] [phone] PCP - General Internal Medicine 05/11/23 documented as of this encounter
--- OUTSIDE RECORDS SUMMARY | 2024-05-08 16:59 | XMS_ITS | Encounter Summary ---
Author Organization [employer] Address [address] [facility] [address] [place] [address] Care Team Providers Care Tire Fabricator Name Role Phone Shruti Campos MD Primary Care Pro vider Reason for Visit * Reason Comments Med Refill Encounter Details Date Type Department Care Team ([facility] st Contact Info) Description 01/14/2024 Refill [facility] MED[facility]INE [address] [place], [place] [phone] Srhuti Campos MD [address] [place], [place] [phone] Social History Tobacco Use Types Packs/Day Years [...] documented as of this encounter Care Teams Tire Fabricator Relationship Specialty Start Date End Date Shruti Campos MD [address] [place] [phone] PCP - General Internal Medicine 05/11/23 documented as of this encounter
--- OUTSIDE RECORDS SUMMARY | 2024-05-08 17:00 | XMS_ITS | Encounter Summary ---
Author Organization [employer] Address [address] [facility] [address] [place] [address] Care Team Providers Care Ciaio Lumite Injector Name Role Phone Shruti Campos MD Primary Care Pro vider Reason for Visit * Reason Onset Date Comments Prior Authorization 04/22/2024 Encounter Details Date Type Department Care Team ([facility] st Contact Info) Description 04/22/[address] [facility] MEDICINE [address] [place], [place] [phone] Shruti Campos MD 230 [place], [place] [phone] Prior Authorization Social History Tobacco Use Types Packs/Day Years [...] the past 12 months, has t he bettermarks, gas, oil or water [employer] threatened to shut off services in your [...] encounter Miscellaneous Notes * Telephone Encounter - Yolanda Barnes - 04/29/2024 10:30 AM EST PA approval received for OZEMPIC. Scanned into [employer] * Telephone Encounter - Angelina Stewart RN - 04/24/2024 8:34 AM EST Confirmation received. * Telephone Encounter - Angelina Stewart RN - 04/23/2024 4:27 PM EST Faxed signed second PA packet for Ozempic back to [facility]. * Telephone Encounter - Christy Crespo RN - 04/22/2024 3:47 PM EST Will reattempt PA. PA packet generated and placed on PCP's desk. Pending prescriber's signature. * Telephone Encounter - Angelina Stewart RN - 04/22/2024 10:09 AM EST PA for Ozempic submitted on 04/16/24. No approval or denial on file. Called [facility], PA still required, Sonya at pharmacy stated it exceeds refill quantity even if Rx changed to 11 refills. Called pt who stated that she received denial letter on 04/18/24 stating that there is an alternativeavailable that does not require a PA. Pt already on Trulicity but has had side effects (acne). PA completed documented that. Will task to PA specialist to advise on plan forward - if new PA should besubmitted. * Telephone Encounter - Tanika Hart - 04/22/2024 8:59 AM EST Tc from pt stating she was advised by [employer] to request alternative for semaglutide (Ozempic) 2MG/1.5ML solution pen-injector. Pt is requesting a call back to further discuss options. Contact pt at [phone] documented in this encounter Plan of Treatment Not on file documented as of this encounter Visit Diagnoses Not on filedocumented in this encounter Additional Health Concerns Assessment Noted Time PHQ-9 Depression Total Score: 18 024 12:25 PM EST documented as of this encounter Care Teams Ciaio Lumite Injector Relationship Specialty Start Date End Date Shruti Campos MD [address] [place] [phone] PCP - General Internal Medicine 05/11/23 documented as of this encounter
--- OUTSIDE RECORDS SUMMARY | 2024-05-08 17:00 | XMS_ITS | Clinical Summary ---
Author Organization [facility] Address [address] [place] [address] Care Team Providers Care Screen Room Operator Name Role Phone Lisette Murillo Shelia Primary Care Provider [phone] Allergies No known active allergies Medications Oxycodone-Acetamin [...] MG Tab 1 TABLET twice daily Active Nepqaxkvow-DLYI-Do ffeine (FIORICET) 50-300-40 MG Cap 1 OR [...] complete this topic Procedures * Due to [place] discoapi law, this organization might not be sharing [...] to Health Maintenance Results * Due to [place] discoapi law, this organization might not be sharing negative HIV tests. * (ABNORMAL) SUREPATH FPGS,HPV,CT/GC PANEL (08/24/2014 4:01 PM EDT) Clinical information NONE GIVEN [facility] Comment:{CLINICAL INFORMATIO N: {[id number]) Date last menstrual period [id number] [facility] Comment:{LMP: {[id number]) Date of previous PAP smear NONE GIVEN [facility] Comment:{PREV. PAP: {[id number]) Date of previous biopsy NONE GIVEN [facility] Comment:{PREV. BX: {[id number]) Specimen source (Cvx/Vag) Cervix, Endocervix [facility] Comment:{SOURCE: {[id number]) Statement of Adequacy (Cvx/Vag) Satisfactory for evaluation. Endocervical/hearn sformation zone component absent. [facility] Comment:{STATEMENT OF ADEQUA CY: {[id number]) General categories (Cvx/Vag) EPITHELIAL CELL ABNORMALITY(A) [facility] Comment:{GENERAL CATEGORIZAT ION: {[id number]) Cytology, Pap Smear Low Grade Squamous Intraepithelial Lesion (LSIL)(A) [facility] Comment:{INTERPRETATION/RESU LT: {[id number]) Cytology study comment (Cvx/Vag) This Pap test has been evaluated with computer assisted technology. [facility] Comment:{COMMENT: {[id number]) Magazine Editor (Cvx/Vag) MPG, CT(ASCP) [facility] Comment:{GLOVE PARTS INSPECTOR: { [id number]) Pathologist (Cvx/Vag) Lorena Mcgrath M.D., Board Certified in Anatomic and Clinical Pathology (electronic signature) Consulting Pathologist [facility] [address] [place] [address] [facility] Comment:{PATHOLOGIST: {[id number]) HPV MRNA E6/E7 Detected(A) Not Detected [facility] Comment: {HPV mRNA E6/E7, SUREPATH VIAL {[id number]) This test was performed using the APTIMA HPV Assay ([employer] This assay detects E6/E7 viral messenger RNA (mRNA) from 14 high-risk HPV types (16,18,31,33,35,39,45,51,52,56,58,59,66,68). The analytical performance characteristics of this assay, when used to test SurePath specimens, have been determined by [employer] [facility] Chlamydia trachomatis rRNA NOT DETECTED NOT DETECTED [facility] Comment:{CHLAMYDIA TRACHOMAT IS RNA, TMA {[id number]) Neisseria Gonorrhoeae rRNA NOT DETECTED NOT DETECTED [facility] Comment:{NEISSERIA GONORRHOE AE RNA, TMA {[id number]) COMMENT SEE NOTE [facility] Comment: {COMMENT {[id number]) This test was performed using the APTIMA COMBO2 Assay ([employer] The analytical performance characteristics of this assay, when used to test SurePath specimens have been determined by [facility]. 08/24/2014 4:01 PM EDT 08/25/2014 1:12 AM EDT Narrative Resulting Agency Comment [id number] Estephania Skelton [facility]-INTERFACED Aissatou l Result Performing Organization Address [facility] Co de Phone Number [facility] [address] [place] [address] * HEPATITIS C ANTIBODY, SERUM (08/24/2014 1:40 PM EDT) Hepatitis C virus Ab NON-REACTI VE NON-REACT LEIGH ANN [facility] Comment:{HEPATITIS C ANTIBOD Y {[id number]) Hepatitis C virus Ab Signal/Cutoff 0.07 <1.00 [facility] Comment:{SIGNAL TO CUT-OFF { [id number]) 08/24/2014 1:40 PM EDT 08/25/2014 12:58 AM EDT Narrative Resulting Agency Comment [id number] Estephania Skelton [facility] Final Res ult Performing Organization Address [facility] de Phone Number [facility] [address] [place] [address] from Last 3 Months or Most Recently Relevant to Health Maintenance Insurance MEDICAID * Guarantor: [id number] [employer] Account Type Relation to Patient Date of Phone Billing Address Worker's Comp [address] [place] [address] WORKERS COMPENSATION Care Teams Screen Room Operator Relationship Specialty Start Date End Date Lisette Murillo [address] [address] PCP - General Internal Medicine 11/20/14
--- OUTSIDE RECORDS SUMMARY | 2024-05-08 17:00 | XMS_ITS | Encounter Summary ---
Author Organization [employer] Address [address] [facility] [address] [place] [address] Care Team Providers Care Record Cutter Name Role Phone Shruti Campos MD Primary Care Pro vider Reason for Visit * Reason Onset Date Comments Prior Authorization 04/08/2024 RYAN Majores t: Lennox Encounter Details Date Type Department Care Team ([facility] st Contact Info) Description 04/08/2024 Telephone [facility] [address] [place], [place] [phone] Shruti Campos MD [address] [place], [place] [phone] Prior Authorization (IRVIN DAVIS Request: Lennox) Social History Tobacco Use Types Packs/Day Years [...] * Telephone Encounter - Yolanda Barnes - 04/16/2024 1:57 PM EST PA anni High signed and faxed to [employer]. Confirmation received and sent to [facility]. If patient calls to check status on above, please advise them to contact Pharmacy . * Telephone Encounter - Stephania Paul - 04/08/2024 10:48 AM EST PA anni High from [facility] placed on PCP desk for signature. * Telephone Encounter - Stephania Paul - 04/08/2024 10:48 AM EST ----- Message from Nurse Angelina Pryor sent at 04/07/2024 3:26 PM EST ----- ----- Message ----- From: JAMES Garcia Sent: 04/07/2024 1:40 PM EST To: [facility] Team Nurses Please pursue PA for semaglutide for diabetes, + ROX to Maribeth documented in this encounter Plan of Treatment Not on file documented as of this encounter Visit Diagnoses Not on filedocumented in this encounter Additional Health Concerns Assessment Noted Time PHQ-9 Depression Total Score: 18 024 12:25 PM EST documented as of this encounter Care Teams Record Cutter Relationship Specialty Start Date End Date Shruti Campos MD [address] [place] [address] PCP - General Internal Medicine 05/11/23 documented as of this encounter
--- OUTSIDE RECORDS SUMMARY | 2024-05-08 17:00 | XMS_ITS | Encounter Summary ---
Author Organization [employer] Address [address] [facility] [address] [place] [address] Care Team Providers Care Residence Manager Name Role Phone Shruti Campos MD Primary Care Pro vider Reason for Visit * Reason Comments Med Refill Encounter Details Date Type Department Care Team ([facility] st Contact Info) Description 04/25/2024 Refill [facility] [address] [place], [place] [phone] Shruti Campos MD [address] [place], [place] [phone] Social History Tobacco Use Types Packs/Day Years [...] documented as of this encounter Care Teams Residence Manager Relationship Specialty Start Date End Date Shruti Campos MD [address] [place] [address] PCP - General Internal Medicine 05/11/23 documented as of this encounter
--- OUTSIDE RECORDS SUMMARY | 2024-05-08 17:00 | XMS_ITS | Encounter Summary ---
Author Organization [facility] Address [address] [place] [address] Care Team Providers Care Brood Hatchery Manager Name Role Phone Paul Mix MD Primary Care Provider [phone] Lisette Murillo Primary Care Provider [phone] Encounter Details Date Type Department Care Team ([facility] st Contact Info) Description 08/24/2014 Orders Only [facility] [address] [place] [phone] Estephania Skelton, [facility] [address] [place] [address] Social History Tobacco Use Types Packs/Day Years [...] of this encounter Procedures * Due to [place] Leeo law, this organization might not be sharing [...] in this encounter Results * Due to [place] law, this organization might not be sharing negative HIV tests. * (ABNORMAL) SUREPATH FPGS,HPV,CT/GC PANEL (08/24/2014 4:01 PM EDT) Clinical information NONE GIVEN [facility] Comment:{CLINICAL INFORMATIO N: {[id number]) Date last menstrual period [id number] [facility] Comment:{LMP: {[id number]) Date of previous PAP smear NONE GIVEN [facility] Comment:{PREV. PAP: {[id number]) Date of previous biopsy NONE GIVEN [facility] Comment:{PREV. BX: {[id number]) Specimen source (Cvx/Vag) Cervix, Endocervix [facility] Comment:{SOURCE: {[id number]) Statement of Adequacy (Cvx/Vag) Satisfactory for evaluation. Endocervical/hearn sformation zone component absent. [facility] Comment:{STATEMENT OF ADEQUA CY: {[id number]) General categories (Cvx/Vag) EPITHELIAL CELL ABNORMALITY(A) [facility] Comment:{GENERAL CATEGORIZAT ION: {[id number]) Cytology, Pap Smear Low Grade Squamous Intraepithelial Lesion (LSIL)(A) [facility] Comment:{INTERPRETATION/RESU LT: {[id number]) Cytology study comment (Cvx/Vag) This Pap test has been evaluated with computer assisted technology. [facility] Comment:{COMMENT: {[id number]) Tower Supervisor (Cvx/Vag) MPG, CT(ASCP) [facility] Comment:{WHARF LABOURER: { [id number]) Pathologist (Cvx/Vag) Lorena Mcgrath M.D., Board Certified in Anatomic and Clinical Pathology (electronic signature) Consulting Pathologist [facility] [address] [place] [address] [facility] Comment:{PATHOLOGIST: {[id number]) HPV MRNA E6/E7 Detected(A) Not Detected [facility] Comment: {HPV mRNA E6/E7, SUREPATH VIAL {[id number]) This test was performed using the APTIMA HPV Assay ([employer] This assay detects E6/E7 viral messenger RNA (mRNA) from 14 high-risk HPV types (16,18,31,33,35,39,45,51,52,56,58,59,66,68). The analytical performance characteristics of this assay, when used to test SurePath specimens, have been determined by [employer] [facility] Chlamydia trachomatis rRNA NOT DETECTED NOT DETECTED [facility] Comment:{CHLAMYDIA TRACHOMAT IS RNA, TMA {[id number]) Neisseria Gonorrhoeae rRNA NOT DETECTED NOT DETECTED [facility] Comment:{NEISSERIA GONORRHOE AE RNA, TMA {[id number]) COMMENT SEE NOTE [facility] Comment: {COMMENT {[id number]) This test was performed using the APTIMA COMBO2 Assay ([employer] The analytical performance characteristics of this assay, when used to test SurePath specimens have been determined by [employer] [facility]. 08/24/2014 4:01 PM EDT 08/25/2014 1:12 AM EDT Narrative Resulting Agency Comment [id number] Estephania Skelton [facility]-INTERFACED Aissatou l Result Performing Organization Address [facility] Co de Phone Number [facility] [address] [place] [address] * RPR, (RAPID PLASMIN REAGIN) WITH REFLEX TO FTA, DIAGNOSTIC (08/24/2014 1:40 PM EDT) Reagin Ab NON-REACT LEIGH ANN NON-REACT LEIGH ANN [facility] Comment:{RPR (DX) W/REFL TIT ER AND CONFIRMATORY TESTING {[id number]) 08/24/2014 1:40 PM EDT 08/25/2014 12:58 AM EDT Narrative Resulting Agency Comment [id number] Estephania Nafisa [facility] Final Res ult Performing Organization Address [facility] Co de Phone Number [facility] [address] [place] [phone] * HEPATITIS C ANTIBODY, SERUM (08/24/2014 1:40 PM EDT) Hepatitis C virus Ab NON-REACTI VE NON-REACT LEIGH ANN [facility] Comment:{HEPATITIS C ANTIBOD Y {[id number]) Hepatitis C virus Ab Signal/Cutoff 0.07 <1.00 [facility] Comment:{SIGNAL TO CUT-OFF { [id number]) 08/24/2014 1:40 PM EDT 08/25/2014 12:58 AM EDT Narrative Resulting Agency Comment [id number] [facility] Final Res ult Performing Organization Address City/[facility] Co de Phone Number [facility] [address] [place] [address] documented in this encounter Visit Diagnoses Diagnosis Encounter for routine gynecological examination Routine gynecological examination documented in this encounter Care Teams Brood Hatchery Manager Relationship Specialty Start Date End Date Paul Mix MD [facility] [address] [place] [address] PCP - General 05/25/09 11/19/14 Lisette Murillo [facility] [address] [place] [address] PCP - General Internal Medicine 11/20/14 documented as of this encounter
--- OUTSIDE RECORDS SUMMARY | 2024-05-08 17:00 | XMS_ITS | Encounter Summary ---
Author Organization [facility] Address [address] [place] [address] Care Team Providers Care Diesel Tractor Engine Mechanic Name Role Phone Paul Mix MD Primary Care Provider [phone] Lisette Murillo Primary Care Provider [phone] Encounter Details Date Type Department Care Team ([facility] st Contact Info) Description 04/30/2013 Orders Only [facility] Orthopedic Surgery [address] [phone] Mandeep Kirk MD [address] [place] [address] Social History Tobacco Use Types Packs/Day Years [...] leg documented in this encounter Care Teams Diesel Tractor Engine Mechanic Relationship Specialty Start Date End Date Paul Mix MD [facility] [address] [place] [address] PCP - General 05/25/09 11/19/14 Lisette Murillo [address] [address] PCP - General Internal Medicine 11/20/14 documented as of this encounter
--- OUTSIDE RECORDS SUMMARY | 2024-05-08 17:00 | XMS_ITS | Encounter Summary ---
Author Organization [employer] Address [address] [facility] [address] [place] [address] Care Team Providers Care Information Specialist Name Role Phone Shruti Campos MD Primary Care Pro vider Reason for Visit * Reason Onset Date Comments Med Refill 04/10/2024 Encounter Details Date Type Department Care Team (Late st Contact Info) Description 04/10/2024 Refill [facility] [address] [place], [place] [phone] Shruti Campos MD [address] [place], [place] [phone] Anxiety Social History Tobacco Use Types Packs/Day Years [...] as of this encounter Visit Diagnoses Diagnosis Anxiety Anxiety state, unspecified documented in this encounter Additional Health Concerns Assessment Noted Time PHQ-9 Depression Total Score: 18 024 12:25 PM EST documented as of this encounter Care Teams Information Specialist Relationship Specialty Start Date End Date Shruti Campos MD [address] [place] [address] PCP - General Internal Medicine 05/11/23 documented as of this encounter
--- OUTSIDE RECORDS SUMMARY | 2024-05-08 17:00 | XMS_ITS | Encounter Summary ---
Author Organization [employer] Address [address] [facility] [address] [place] [address] Care Team Providers Care Business Services Coordinator Name Role Phone Shruti Campos MD Primary Care Pro vider Reason for Visit * Reason Comments Med Change Request Encounter Details Date Type Department Care Team (Late st Contact Info) Description 04/19/2024 Refill [facility] [address] [place], [place] [phone] Althea Chilel ANP [address] [place], [place] [phone] Social History Tobacco Use Types Packs/Day Years [...] Telephone Encounter - Christy Crespo RN - 04/21/2024 11:37 AM EST RN reviewed warfarin refill request. Pt follows with [facility]. Last seen 04/07/24 with INR of 2.5 (target range is 2-3). Next appt with them is scheduled for 04/28/24. Pt has been compliant with INR draws and coumadin dosing. Queued refills. documented in this encounter Plan of Treatment Not on file documented as of this encounter Visit Diagnoses Not on filedocumented in this encounter Additional Health Concerns Assessment Noted Time PHQ-9 Depression Total Score: 18 024 12:25 PM EST documented as of this encounter Care Teams Business Services Coordinator Relationship Specialty Start Date End Date Shruti Campos MD [address] [place] [address] PCP - General Internal Medicine 05/11/23 documented as of this encounter
--- OUTSIDE RECORDS SUMMARY | 2024-05-08 17:00 | XMS_ITS | Encounter Summary ---
Author Organization [employer] Address [address] [facility] [address] [place] [address] Care Team Providers Care Squad Sergeant Name Role Phone Shruti Campos MD Primary Care Pro vider Reason for Visit * Reason Onset Date Comments Durable Medical Equipment 10/09/2023 Encounter Details Date Type Department Care Team ([facility] st Contact Info) Description 10/09/2023 Telephone [facility] [address] [place], [place] [phone] Shruti Campos MD [address] [place], [place] [phone] Durable Medical Equipment Social History Tobacco Use [...] t he electric, gas, oil or water [employer] threatened to shut off services in your [...] documented as of this encounter Care Teams Squad Sergeant Relationship Specialty Start Date End Date Shruti Campos MD [address] [place] [address] PCP - General Internal Medicine 05/11/23 documented as of this encounter
--- OUTSIDE RECORDS SUMMARY | 2024-05-08 17:00 | XMS_ITS | Clinical Summary ---
Author Organization [facility] Address [address] [place] [address] Care Team Providers Care Reduction Furnace Operator Name Role Phone Unavailable Primary Care Provider [...] pain syndrome 01/20/2019 Episodic mood disorder 05/15/2018 exterminator (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 2017 PVD [...] absorb on its own. Follow up with [facility]IZZ[facility] PEELER in 2-3 weeks to discuss management of [...] scheduled for 05/01 at 11:15 AM at [facility] Essential hypertension 04/23/2017 Assessment & Plan [...] asymptomatic. Recommend follow up with Dr. Liriano -GIZZ[facility] PEELER in 2-3 weeks after discharge. Patient to [...] PRN for SOB - Supplemental O2 by [place] for O2 sats <92 - Dextromorphan PRN [...] Type Department Care Team Description 03/25/2024 [facility] 4th floor Cardiology Medicine [address] [place] [address] [employer] Cro[employer] Farm Hand: Carmen Smith DO from Last 3 Months Immunizations Immunization Administration Dates Next Due INFLUENZA, SPLIT VIRUS, [...] Health Maintenance Due Date Last Done Comments Ophthalmology Exam 11/07/1989 Urine Microalbumin 11/07/1989 Pneumococcal Vaccine: Pediat ju (0-5 Years) and At-Risk Patients (6-50 Years) (1 of 2 - PCV) 11/07/1998 Mammogram 2019 Pap Smear 08/08/2020 08/08/2017, 09/02/2010 [...] Varicella Vaccines Discontinued Procedures * Due to [place] Cash Check Card law, this organization might not be sharing negative HIV tests. Procedure Name Priority Date/Time Associated Diagnosis Comments POCT HEMOGLOBIN A1C, CMG, NON-INTERFACED Routine 06/05/2022 11:58 AM EDT Type 2 diabetes mellitus with other specified complication, unspecified whether exterminator insulin use (CMS/HCC) (HCC) BASIC METABOLIC PANEL STAT 06/02/2022 12:15 PM EDT [facility] W/HPV, MRNA E6/E7, REFLEX 16/18/45 Routine 08/08/2017 11:00 AM EDT Screening for malignant neoplasm of cervix Screening for human papillomavirus HEPATITIS C ANTIBODY, CONVERSION Routine 09/16/2010 12:21 PM EDT from Last 3 Months or Most Recently Relevant to Health Maintenance Results * Due to [place] Cash Check Card law, this organization might not be sharing [...] - 145 mmol/L 06/02/2022 1:07 PM EDT [facility] K 3.9 3.5 - 5.3 mmol/L 06/02/2022 1:07 PM EDT [facility] Cl 105 98 - 107 mmol/L 06/02/2022 1:07 PM EDT [facility] CO2 26 22 - 30 mmol/L 06/02/2022 1:07 PM EDT [facility] BUN 13 7 - 18 mg/dL 06/02/2022 1:07 PM EDT [facility] Creatinine 0.98 0.60 - 1.30 mg/dL 06/02/2022 1:07 PM EDT [facility] Glucose 129(H) 70 - 99 mg/dL 06/02/2022 1:07 PM EDT [facility] Calcium 9.6 8.5 - 10.1 mg/dL 06/02/2022 1:07 PM EDT [facility] Anion Gap 2(L) 5 - 15 06/02/2022 1:07 PM EDT [facility] eGFR 74(L) >=90 mL/min/1. 73m2 06/02/2022 1:07 PM EDT [facility] Comment: Estimated [...] BLOOD ORDERABLES Final Result Performing Organization Address City/State/[facility] Co de Phone Number [facility] [address] [place] [phone], * (ABNORMAL) [facility] w/HPV, mRNA E6/E7, Reflex 16/18/45 (08/08/2017 11:00 AM EDT) [facility] TIS, mRNA E6/E7 Jessica See Below(A) [employer] Comment: TIS,mRNA E6/E7 JESSICA ?? CLINICAL INFORMATION: [...] evaluated with computer ? assisted technology. ?? STRAPPER AND BUFFER: ? MPG, CT(ASCP) ? CT screening location: [facility] ? [address] ? [place], [place] ??[address] ?? PATHOLOGIST: ? Maxwell Oreilly M.D. Direct , ? Board Certified in Anatomic and Clinical ? Pathology and Cytopathology ? (electronic signature) ? Consulting Pathologist ? [facility] ? [address] ? [place] [address] ? [phone] ?? HPV mRNA E6/E7 ? Not Detected ? REFERENCE RANGE: Not Detected ? This test was performed using the APTIMA HPV Assay ([employer].). ? This assay detects E6/E7 viral messenger [...] ORDER STELLA Final Result [facility] [address] [facility] [address]rd Floor, [place] [address], [place] [phone] 3[address] Floor, [place] [address], [place] [phone] * HEPATITIS C ANTIBODY, CONVERSION (09/16/2010 12:21 PM EDT) Hepatitis C Antibody <0.02 <1.00 IV [facility] Comment: Negative Not infected with HCV, unless recent infection is suspected or other evidence exists to indicate HCV infection. 09/16/2010 12:2 1 PM EDT 09/16/2010 1:08 PM EDT us Paula Valdez MD LAB HISTORICAL RESULTS F inal Result [facility] [address] [place] [address], [place] from Last 3 Months or Most Recently Relevant to Health Maintenance Insurance [employer] [facility] Advance Directives Documents on File Type Date Recorded Patient Log [employer] Expl 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
--- OUTSIDE RECORDS SUMMARY | 2024-05-08 17:00 | XMS_ITS | Referral Summary ---
Author Organization [facility] Address [address] [place] [address] Care Team Providers Care City Letter Carrier Name Role Phone Unavailable Primary Care Provider Unavailabl e Encounters Date Type Department Care Team Description 03/25/2024 Refill [facility] 4th floor Cardiology Medicine [address] [place] [phone] Slat Basket Maker: Carmen Smith DO from Last 3 Months [...] pain syndrome 01/20/2019 Episodic mood disorder 05/15/2018 meterman (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 2017 PVD (peripheral [...] absorb on its own. Follow up with STUDY LEAD in 2-3 weeks to discuss management of [...] scheduled for 05/01 at 11:[address] [facility] Essential hypertension 04/23/2017 Assessment & Plan [...] asymptomatic. Recommend follow up with Dr. Liriano -STUDY LEAD in 2-3 weeks after discharge. Patient to [...] leg 08/20/2009 01/20/2022 Overview (04/10/2019): . Immunizations Immunization Administration Dates Next Due INFLUENZA, [...] Not on file Procedures * Due to [place] state law, this organization might not be sharing negative HIV tests. Procedure Name Priority Date/Time Associated Diagnosis Comments POCT HEMOGLOBIN A1C, CMG, NON-INTERFACED Routine 06/05/2022 11:58 AM EDT Type 2 diabetes mellitus with other specified complication, unspecified whether [facility] insulin use (CMS/HCC) (HCC) BASIC METABOLIC PANEL STAT 06/02/2022 12:15 PM EDT [facility] PAP W/HPV, MRNA E6/E7, REFLEX 16/18/45 Routine 08/08/2017 11:00 AM EDT Screening for malignant neoplasm of cervix Screening for human papillomavirus HEPATITIS C ANTIBODY, CONVERSION Routine 09/16/2010 12:21 PM EDT from Last 3 Months or Most Recently Relevant to Health Maintenance Results * Due to [place] state law, this organization might not be [...] 5 - 15 06/02/2022 1:07 PM EDT [facility] eGFR 74(L) >=90 mL/min/1. 73m2 06/02/2022 1:07 PM EDT [facility] Comment: Estimated Glomerular Filtration Rate (GFR) [...] Vazquez MD LAB BLOOD ORDERABLES Final Result [facility] [address] [place] [address], * (ABNORMAL) [facility] Pap w/HPV, mRNA E6/E7, Reflex 16/18/45 (08/08/2017 11:00 AM EDT) [facility] TIS, mRNA E6/E7 Jessica See Below(A) [employer] Comment: TIS,mRNA E6/E7 JESSICA ?? CLINICAL INFORMATION: [...] evaluated with computer ? assisted technology. ?? BRANCH CONTROLLER: ? MPG, CT(ASCP) ? CT screening location: [facility] ? [address] ? [place], [place] ??[address] ?? PATHOLOGIST: ? Maxwell Oreilly M.D. Direct , ? Board Certified in Anatomic and Clinical ? Pathology and Cytopathology ? (electronic signature) ? Consulting Pathologist ? [facility] ? [address] ? [place] [address] ? [phone] ?? HPV mRNA E6/E7 ? Not Detected ? REFERENCE RANGE: Not Detected ? This test was performed using the APTIMA HPV Assay ([employer] ? This assay detects E6/E7 viral [...] ORDER STELLA Final Result [facility] [address] [facility] [address]rd Floor, [place] [address], [facility] [address], [place] [address], * HEPATITIS C ANTIBODY, CONVERSION (09/16/2010 12:21 PM EDT) Hepatitis C Antibody <0.02 <1.00 IV [facility] Comment: Negative Not infected with HCV, unless recent infection is suspected or other evidence exists to indicate HCV infection. 09/16/2010 12:2 1 PM EDT 09/16/2010 1:08 PM EDT Paula Valdez MD LAB HISTORICAL RESULTS F inal Result [facility] [address] [place] [address], from Last 3 Months or Most Recently Relevant to Health Maintenance Insurance [facility] Advance Directives Documents on File Type Date Recorded Patient Lead Pressman Expl 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
== END 2024-05-08 14:47 | disposition home or self-care (01) ==
PROVIDERS: PCP Student in an Organized Health Care Education/Training Program
DX: R00.2 Palpitations (principal); I25.10 Atherosclerotic heart disease of native coronary artery without angina pectoris; I48.0 Paroxysmal atrial fibrillation; G47.33 Obstructive sleep apnea (adult) (pediatric); E66.01 Morbid (severe) obesity due to excess calories
CPT/HCPCS: 93010; 99214

== ENCOUNTER → 2024-05-08 14:04 | Outpatient (BNVA) | payer MEDICAID, SELFPAY | PROVIDERS: PCP Student in an Organized Health Care Education/Training Program | DX: R00.2 Palpitations (principal); I25.10 Atherosclerotic heart disease of native coronary artery without angina pectoris; I48.0 Paroxysmal atrial fibrillation; G47.33 Obstructive sleep apnea (adult) (pediatric); E66.01 Morbid (severe) obesity due to excess calories; Z68.42 Body mass index [BMI] 45.0-49.9, adult; R94.31 Abnormal electrocardiogram [ECG] [EKG]; I73.9 Peripheral vascular disease, unspecified | CPT/HCPCS: 93005; 99212 ==

== ENCOUNTER 2024-05-16 13:33 | Outpatient (AMB) | payer MEDICAID, SELFPAY ==
--- NOTE | 2024-05-16 13:45 | MHC.OFFVISCO ---
Intake Intake Visit Reasons: Anticoagulation Allergies lisinopril Allergy (Mild, Verified 05/16/24 13:34) Cough Medication List - Last Reconciled 05/16/24 by Candi Stone RN albuterol sulfate 90 mcg/actuation (Ventolin HFA) 2 puffs inhalation Q6H PRN atorvastatin 10 mg PO DAILY bisacodyl 5 mg PO DAILY PRN cholecalciferol (vitamin D3) 50 mcg PO DAILY clonidine HCl 0.2 mg PO BID diltiazem HCl CD 120 mg PO DAILY docusate sodium 100 mg PO BID PRN ferrous gluconate 324 mg PO 3XW linaclotide (Linzess) 145 mcg PO QAM loratadine 10 mg PO DAILY lorazepam 0.5 mg PO QAM PRN losartan 25 mg PO DAILY metoprolol succinate ER 25 mg PO BID omeprazole 20 mg PO DAILY polyethylene glycol 3350 (Gavilax) 17 grams PO DAILY semaglutide (Ozempic) 1 mg subcut QWEEK warfarin 2 mg See Protocol PO DIRECTED Nursing Note INR: 2.8 in therapeutic range of 2-3 Medications and supplements reviewed No changes in health, diet, medications, or supplements, Denies any signs and symptoms of bleeding or bruising or clotting. Bleeding, bruising, clotting discussed Nutritional guidance given Dose: 2mg daily F/U INR: 4 weeks Patient verbalizes understanding of instructions given Anti-Coag Initial Assessment Social Hx Patient Tobacco Use Status: Former Tobacco user Smoking packs per day: 0.5 alcohol intake: never Cardiovascular Hx: HTN and Arrhythmias Lung Disease HX: Asthma Endocrine Hx: Diabetes Musculoskeletal Hx: Osteoporosis Blood Disorder Hx: Anemia and Hyperlipidemia Hx: Kidney Disease Neurological Hx: Migraines/Headaches Cancer HX: No Psych. Illness/Depression: Yes Coding Level of Care Code Est Patient Level 1 Diagnoses Current use of anticoagulant therapy Z79.01 Results AMB INR Fingerstick AMB INR Fingerstick 2.8 Last Edit by Candi Stone RN on 05/16/24 13:44 interface delay Assessment & Plan Assessment & Plan (1) Current use of anticoagulant therapy: Code(s): Z79.01 - roasterman (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 Category: Medical
[2024-05-16 13:51] LABS: ~PT, ~INR - Anti Coag Clinic 2.8 (0.9-1.1)
--- OUTSIDE RECORDS SUMMARY | 2024-05-16 15:11 | XMS_ITS | Encounter Summary ---
Author Organization [employer] Address [address] [facility] [address] [place] [address] Care Team Providers Care Lab Manager Name Role Phone Shruti Campos MD Primary Care Pro vider Reason for Visit * Reason Comments Med Refill Encounter Details Date Type Department Care Team ([facility] st Contact Info) Description 01/14/2024 Refill [facility] [address] [place], [place] [phone] Shruti Campos MD [address] [place], [place] [phone] Social History Tobacco Use Types Packs/Day Years [...] documented as of this encounter Care Teams Lab Manager Relationship Specialty Start Date End Date Shruti Campos MD [address] [place] [phone] PCP - General Internal Medicine 05/11/23 documented as of this encounter
--- OUTSIDE RECORDS SUMMARY | 2024-05-16 15:11 | XMS_ITS | Encounter Summary ---
Author Organization [employer] Address [address] [facility] [address] [place] [address] Care Team Providers Care Applied Marine Physics Professor Name Role Phone Shruti Campos MD Primary Care Pro vider Reason for Visit * Reason Onset Date Comments Med Refill 02/18/2024 Encounter Details Date Type Department Care Team (Late st Contact Info) Description 02/18/2024 Refill [facility] [address] [place] [address] [phone] Shruti Campos MD [address] [place], [place] [phone] Social History Tobacco Use Types Packs/Day Years [...] documented as of this encounter Care Teams Applied Marine Physics Professor Relationship Specialty Start Date End Date Shruti Campos MD [address] [place] [phone] PCP - General Internal Medicine 05/11/23 documented as of this encounter
--- OUTSIDE RECORDS SUMMARY | 2024-05-16 15:11 | XMS_ITS | Clinical Summary ---
Author Organization [employer] Address [address] [place] [address] 7[address] [place] [address] Care Team Providers Care Design Technology Professor Name Role Phone Shruti Campos MD [...] 60 capsule 1 02/18/20 24 025 Active GaviLAX 17 GM/SCOOP powder TAKE 17 G BY MOUTH ONCE PER DAY 510 g 2 02/22/20 24 Active losartan (Cozaar) 25 MG tablet TAKE 1 TABLET BY MOUTH EVERY DAY 90 tablet 03/15/19 25 Active semaglutide (Ozempic) 2 MG/1.5ML solution pen-injectorIn dications:Type 2 diabetes mellitus with microalbuminur ia, without long-term current use of insulin ([facility]) Inject 1 mg under the skin 1 [...] DAY 90 capsule 1 04/25/19 25 Active Ventolin HFA 108 (90 Base) MCG/ACT inhaler INHALE 2 PUFFS EVERY 6 HOURS IF NEEDED FOR WHEEZING. 18 g 2 05/14/19 25 Active dilTIAZem CD (Cardizem CD) 120 MG 24 hr capsule TAKE 1 CAPSULE BY MOUTH EVERY DAY 90 capsule 1 10/09/19 24 02/14/2 025 Discontinued Ventolin HFA 108 (90 Base) MCG/ACT inhaler INHALE 2 PUFFS EVERY 6 HOURS IF NEEDED FOR WHEEZING. 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 Follow up with EPOXY FABRICATION SUPERVISOR in 2-3 weeks to discuss management of [...] Encounters Date Type Department Care Team Description 05/16/2024 Orders Only GENERIC EXTERNAL DATA DEPARTMENT Provider, Generic External Data 05/11/2024 Refill [facility] [address] [facility] [address] Ryanne Vega MD 04/25/2024 Refill [facility] [address] [place] [address] Shruti Campos MD 04/22/2024 Telephone [facility] [address] Shruti Campos MD Prior Authorization 04/19/2024 Refill [facility] [place] [address] Althea Chilel ANP 04/10/2024 Refill [facility] [address] [facility] [address] Shruti Campos MD Anxiety 04/08/2024 Telephone [facility] [address] Shruti Campos MD Prior Authorization ( PA Request: Lenn[place]) 04/07/2024 1:00 PM EST Office Visit [facility] [address] Althea Chilel, JAMES Rash (Primary Dx); Type 2 diabetes mellitus with microalbuminuria, without long-term current use of insulin ([facility]); Pain of right heel 04/07/2024 Orders Only GENERIC EXTERNAL DATA DEPARTMENT Provider, Generic External Data 04/07/2024 Travel 04/01/2024 Telephone [facility] [address] Shruti Campos MD Nurse Triage 03/26/2024 Refill [facility] [place] [address] Shruti Campos MD 03/14/2024 Orders Only GENERIC EXTERNAL DATA DEPARTMENT Provider, Generic External Data 03/13/2024 Refill [facility] [address] [facility] [place] [address] Shruti Campos MD 02/22/2024 Refill [facility] [address] [facility] [place] [address] Shruti Campos MD 02/20/2024 Refill [facility] [address] [facility] [place] [address] Shruti Campos MD 02/18/2024 Refill [facility] [address] [place] [address] Shruti Campos MD from Last 3 Months [...] of 2 - PCV) 11/07/1998 COVID-19 Vaccine (2023-2 5 season) 2023 Depression Monitoring (PHQ-9) 11/11/2023, 05/11/2023 Influenza Vaccine (#1) 2023 2, 11/29/2010 SDOH Screening 05/03/2024 05/03/2023 Depression Screening 05/10/2024 05/11/2023, 05/11/2023 Diabetes: Hemoglobin A1C 07/06/2024 025, 06/20/2023 Cervical Cancer Screening 12/03/2024 Family Planning (PISQ) 12/03/2024 12/04/2023 HPV/Cotest 12/03/2024 12/04/2023 Pap Smear 12/03/2024 12/04/2023 Tobacco Screening 12/03/2024 12/04/2023 Mammogram 08/09/2025 08/10/2023 Eye Exam [...] Comments PROTHROMBIN TIME WHOLE BLD POC Routine 05/16/2024 1:41 PM EST ~PT, ~INR - ANTI COAG CLINIC Routine 05/16/2024 1:41 PM EST PROTHROMBIN TIME WHOLE BLD POC Routine 04/07/2024 [...] COAG CLINIC Routine 03/14/2024 3:45 PM EST THINPREP IMAGING PAP AND HPV MRNA E6/E7 Routine 12/04/2023 2:30 PM EDT AMB REFERRAL TO OPHTHALMOLOGY Routine 08/13/2023 Type 2 diabetes mellitus with microalbuminuria, without long-term current use of insulin ([facility]/HCC) BI MAMMOGRAM SCREENING TOMOSYNTHESIS BILATERAL Routine 08/10/2023 [...] * (ABNORMAL) PROTHROMBIN TIME WHOLE BLD POC (05/16/2024 1:41 PM EST) Only the most recent of3 resultswithin the time period is included. Protime 33.0(H) 11.1 - 13.5 sec [facility] 05/16/2024 1:41 PM EST 05/16/2024 1:50 PM EST us Generic External Data Provider LAB BLOOD ORDERAB LES Final Result [facility] [address] [place] [address] [phone] * (ABNORMAL) ~PT, ~INR - ANTI COAG CLINIC (05/16/2024 1:41 PM EST) Only the most recent of3 resultswithin the time period is included. Prothrombin Time INR 2.8(H) 0.9 - 1.1 [facility] Comment:METER #: [id number] TERNATIONAL NORMALIZED RATIO (INR) REFERENCE RANGES Reference RangeFor patients not on anticoagulant therapy: 0.9 - 1.1INR ranges for oral anticoagulanttherapy:For prevention and treatment of venous thrombosis and pulmonary embolism: 2.0 - 3.0For acute myocardial infarction with aspirin therapy: 2.0 - 3.0For acute myocardial infarction without aspirin therapy: 3.0 - 4.0For patients with mechanical prosthetic heart valves: 2.5 - 3.5 05/16/2024 1:41 PM EST 05/16/2024 1:50 PM EST us Generic External Data Provider LAB BLOOD ORDERAB LES Final Result [facility] [address] [place] [phone] * (ABNORMAL) POCT HGB A1C (04/07/2024 1:38 PM EST) Pathologist [facility] Hemoglobin A1C 7.2(A) 4.0 - 6.0 % QC Media Lot # [id number] Lot# Expiration Date ,544 Blood 04/07/2024 1:38 PM EST us Althea Chilel ANP POINT OF CARE TEST ENTER/EDIT OR DERABLES Final Result * [facility] Pap and HPV mRNA E6/E7 (12/04/2023 2:30 PM EDT) HPV nRNA E6/E7 Not Detected Not Detected [facility] Comment:Methodology: Transcr iption-Mediated AmplificationThis assay detects E6/E7 viral messenger RNA (mRNA) from 14high-risk HPV types (16,18,31,33,35,39,45,51,52,56,58,59,66,68).Cervical sources are required for HPV testing.If a vaginal source from a patient who has had atotal hysterectomy with removal of cervix wassubmitted, please contact the testing laboratoryfor alternative testing options.For additional information, please refer tohttp://education.Favbuy/faq/NJS550y9(This link if provided for information/educational purposes only.)THIS TEST WAS PERFORMED AT:[employer] [address] [phone] GONZALEZ MD SOURCE: SEE NOTE [facility] Comment:None given Report Status: [facility] Clinical Information: SEE NOTE [facility] Comment:None given LMP: SEE NOTE [facility] Comment:NONE GIVEN Prev. PAP: SEE NOTE [facility] Comment:NONE GIVEN Prev. BX: SEE NOTE [facility] Comment:NONE GIVEN Statement Of Adequacy: SEE NOTE [facility] Comment:Satisfactory for laureano luation.Endocervical/transformation zone component absent. General Categorization: [facility] Interpretation/Result: SEE NOTE [facility] Comment:Cytology Results: Ne gative for intraepitheliallesion or malignancy. Cytology Comment SEE NOTE [facility] Comment:This Pap test has be en evaluated with computerassisted technology. Blindstitch Hemmer: SEE NOTE [facility] Comment:DCR, CT(ASCP)CT scre ening location: [place] [address] Review Blindstitch Hemmer: [facility] Pathologist [facility] PAP Infection SEE NOTE [facility] Comment:Shift in vaginal amrik ra suggestive of bacterialvaginosis. See Note SEE [facility] Comment:EXPLANATORY NOTE:The Pap is a screening test for cervical cancer. It isnot a diagnostic test and is subject to false negativeand false positive results. It is most reliable when asatisfactory sample, regularly obtained, is submittedwith relevant clinical findings and history, and whenthe Pap result is evaluated along with historic andcurrent clinical information. 12/04/2023 2:30 PM EDT 12/04/2023 6:04 PM EDT Narrative [facility] - 12/07/2023 12:53 PM EDT SEE SCANNED RESULTS IN EMR us Pam Guzman CNM LAB PATHOLOGY ORDERABLES Final Result [facility] [address] [place] [address] [phone] * Referral to Ophthalmology (08/13/2023) us Shruti Handy MD OUTPATIENT REFERR AL ORDERABLES Final Result * BI Mammogram Screening Tomosynthesis Bilateral (08/10/2023 11:20 AM EDT) Anatomical Region Laterality Modality Breast Bilateral Mammography 08/10/2023 11:2 0 AM EDT Narrative 08/28/2023 1:48 PM EDT ? [facility] [place] ? [address] ?[place] [address] ? Mammography Report ? Signed ? Patient: Bria Nevarez ?MR#: [id number] ?? [id number] ? : 1980 ?Acct:[id number] ? Age/Sex: 42 / F ?ADM Date: 05/31/24 ? Loc: HO.MAMMO ? Attending Dr: Shruti Mccain MD ? Ordering Physician: Shruti Campos MD ?Re ?? sults: 1Negative ? Date of Service: 08/10/23 ?Follow Up: 1 Year From Orig ?? inal Mammogram ? Procedure(s): MM tomosynthesis screening BI ?? Accession Number(s): [id number] ? cc: Shruti Campos MD ? EXAMINATION: [...] 1344 ? DD/ 1120 ? TD/TT: ? Master In Chancery: ? Procedure Note Mitali Hardin - 08/28/2023 [facility] [address] [place] [address] Dr. Gómez, HUBER [address] Mammography Report Signed Patient: Bria Nevarez [facility]#: [id number] : 1980Acct:[id number] Age/Sex: 42 / FADM Date: 08/10/23 Loc: MAMMBianca Attending Dr: Shruti Mccain MD Ordering Physician: Shruti Campos sults: 1Negative Date of Service: 08/10/23Follow Up: 1 Year From Orig ina Mammogram Procedure(s): MM tomosynthesis screening BI Accession Number(s): [id number] cc: Shruti Campos MD EXAMINATION: MM SCREENING [...] in OV> 08/28/23 1344 DD/ 1120 TD/TT: Master In Chancery: us Shruti Handy MD IMG BI PROCEDURES Final Result * Hepatitis C Antibody with Reflex to HCV, RNA, Quantitative, Real-Time PCR (06/20/2023 1:38 PM EDT) Hepatitis C Antibody Nonreactive Nonreactive [facility] Comment:Antibodies to HCV no t detected; does not exclude early acuteHCV infection. Blood Venous blood specimen / Unknown 06/20/2023 1:38 PM EDT 06/20/2023 1:38 PM EDT Shruti Handy MD LAB BLOOD ORDERAB LES Final Result Performing Organization Address [facility]/ZIP Co de Phone Number [facility] [address] [place] [address] [phone] * HIV-1/2 Antigen and Antibodies, Fourth Generation, with Reflexes (06/20/2023 1:38 PM EDT) [facility] HIV AB/AG Nonreactive Nonreactive [facility] Comment:HIV-1 p24 Ag and/or HIV-1/HIV-2 Ab not detected.A test result that is nonreactive does not exclude thepossibility of exposure to or infection with HIV-1 and/orHIV-2. Nonreactive results in this assay for individualswith prior exposure to HIV-1 and/or HIV-2 may be due toantigen and antibody levels that are below the limit ofdetection of this assay.The Butlr HIV Ag/Ab Combo assay result andsupplemental assay results should be interpreted inconjunction with the patient's clinical presentation,history and other laboratory results. If the results areinconsistent with clinical evidence, additional testing issuggested to confirm the result. Blood Venous blood specimen / Unknown 06/20/2023 1:38 PM EDT 06/20/2023 1:38 PM EDT us Shruti Handy MD LAB BLOOD ORDERAB LES Final Result Performing Organization Address City/[facility]/ZIP Co de Phone Number [facility] [address] [place] [address] [phone] from Last 3 Months or Most Recently Relevant to Health Maintenance Insurance [facility] C3 Member Subscriber Plan / Payer (Ef fective 2022-Present) Name:Nicole Nevarezmark Sapp Relation to Subscriber:Self Name:Bria Nevarez Payer ID:Not on file Group ID:Not on file Type:Medicaid Address: [place] [id number] Care Teams Design Technology Professor Relationship Specialty Start Date End Date Shruti Campos MD [address] [place] [phone] PCP - General Internal Medicine 05/11/23
--- OUTSIDE RECORDS SUMMARY | 2024-05-16 15:11 | XMS_ITS | Encounter Summary ---
Author Organization [facility] Address [address] [place] [address] Care Team Providers Care Drafter Detail Name Role Phone Paul Mix MD Primary Care Provider [phone] Lisette Murillo Primary Care Provider [phone] Encounter Details Date Type Department Care Team ([facility] st Contact Info) Description 08/24/2014 Orders Only [facility] [address] [place] [phone] Estephania Skelton, KSENIA [address] [place] [address] Social History Tobacco Use Types Packs/Day Years [...] of this encounter Procedures * Due to [place] Shopp[place] law, this organization might not be sharing [...] in this encounter Results * Due to [place] law, this organization might not be sharing negative HIV tests. * (ABNORMAL) SUREPATH FPGS,HPV,CT/GC PANEL (08/24/2014 4:01 PM EDT) Clinical information NONE GIVEN [facility] Comment:{CLINICAL INFORMATIO N: {[id number]) Date last menstrual period [id number] [facility] Comment:{LMP: {[id number]) Date of previous PAP smear NONE GIVEN [facility] Comment:{PREV. PAP: {[id number]) Date of previous biopsy NONE GIVEN [facility] Comment:{PREV. BX: {[id number]) Specimen source (Cvx/Vag) Cervix, Endocervix [facility] Comment:{SOURCE: {[id number]) Statement of Adequacy (Cvx/Vag) Satisfactory for evaluation. Endocervical/hearn sformation zone component absent. [facility] Comment:{STATEMENT OF ADEQUA CY: {[id number]) General categories (Cvx/Vag) EPITHELIAL CELL ABNORMALITY(A) [facility] Comment:{GENERAL CATEGORIZAT ION: {[id number]) Cytology, Pap Smear Low Grade Squamous Intraepithelial Lesion (LSIL)(A) [facility] Comment:{INTERPRETATION/RESU LT: {[id number]) Cytology study comment (Cvx/Vag) This Pap test has been evaluated with computer assisted technology. [facility] Comment:{COMMENT: {[id number]) Bulk Materials Handling Plant Operator (Cvx/Vag) MPG, CT(ASCP) [facility] Comment:{EXHIBITION DESIGNER: { [id number]) Pathologist (Cvx/Vag) Lorena Mcgrath M.D., Board Certified in Anatomic and Clinical Pathology (electronic signature) Consulting Pathologist [facility] [address] [place] [address] [facility] Comment:{PATHOLOGIST: {[id number]) HPV MRNA E6/E7 Detected(A) Not Detected [facility] Comment: {HPV mRNA E6/E7, SUREPATH VIAL {[id number]) This test was performed using the APTIMA HPV Assay ([employer] This assay detects E6/E7 viral messenger RNA (mRNA) from 14 high-risk HPV types (16,18,31,33,35,39,45,51,52,56,58,59,66,68). The analytical performance characteristics of this assay, when used to test SurePath specimens, have been determined by [facility] Chlamydia trachomatis rRNA NOT DETECTED NOT DETECTED [facility] Comment:{CHLAMYDIA TRACHOMAT IS RNA, TMA {[id number]) Neisseria Gonorrhoeae rRNA NOT DETECTED NOT DETECTED [facility] Comment:{NEISSERIA GONORRHOE AE RNA, TMA {[id number]) COMMENT SEE NOTE [facility] Comment: {COMMENT {[id number]) This test was performed using the APTIMA COMBO2 Assay ([employer] The analytical performance characteristics of this assay, when used to test SurePath specimens have been determined by [facility]. 08/24/2014 4:01 PM EDT 08/25/2014 1:12 AM EDT Narrative Resulting Agency Comment [id number] Estephania Skelton [facility]ACED Aissatou l Result Performing Organization Address [facility] Co de Phone Number [facility] [address] [place] [address] * RPR, (RAPID PLASMIN REAGIN) WITH REFLEX TO FTA, DIAGNOSTIC (08/24/2014 1:40 PM EDT) Reagin Ab NON-REACT LEIGH ANN NON-REACT LEIGH ANN [facility] Comment:{RPR (DX) W/REFL TIT ER AND CONFIRMATORY TESTING {[id number]) 08/24/2014 1:40 PM EDT 08/25/2014 12:58 AM EDT Narrative Resulting Agency Comment [id number] Estephania Nafisa [facility] Final Res ult Performing Organization Address [facility] Co de Phone Number [facility] [address] [place] [phone] * HEPATITIS C ANTIBODY, SERUM (08/24/2014 1:40 PM EDT) Hepatitis C virus Ab NON-REACTI VE NON-REACT LEIGH ANN [facility] Comment:{HEPATITIS C ANTIBOD Y {[id number]) Hepatitis C virus Ab Signal/Cutoff 0.07 <1.00 [facility] Comment:{SIGNAL TO CUT-OFF { [id number]) 08/24/2014 1:40 PM EDT 08/25/2014 12:58 AM EDT Narrative Resulting Agency Comment [id number] [facility] Final Res ult Performing Organization Address City/[facility] Co de Phone Number [facility] [address] [place] [address] documented in this encounter Visit Diagnoses Diagnosis Encounter for routine gynecological examination Routine gynecological examination documented in this encounter Care Teams Drafter Detail Relationship Specialty Start Date End Date Paul Mix MD [facility] [address] [place] [address] PCP - General 05/25/09 11/19/14 Lisette Murillo [facility] [address] [place] [address] PCP - General Internal Medicine 11/20/14 documented as of this encounter
--- OUTSIDE RECORDS SUMMARY | 2024-05-16 15:11 | XMS_ITS | Encounter Summary ---
Author Organization [facility] Address [address] [place] [address] 7[address] [place] [address] Care Team Providers Care Rn Relief Charge Name Role Phone Shruti Campos MD Primary Care Pro vider Encounter Details Date Type Department Care Team (Late st Contact Info) Description 05/16/2024 Orders Only GENERIC EXTERNAL DATA [...] [facility] Routine 05/16/2024 1:41 PM EST documented in this encounter Results * (ABNORMAL) PROTHROMBIN TIME WHOLE BLD POC (05/16/2024 1:41 PM EST) Protime 33.0(H) 11.1 - 13.5 sec [facility] 05/16/2024 1:41 PM EST 05/16/2024 1:50 PM EST us Generic External Data Provider LAB BLOOD ORDERAB LES Final Result Performing Organization Address City/State/[facility] Co de Phone Number [facility] [address] [place] [phone] * (ABNORMAL) ~PT, ~INR - ANTI COAG CLINIC (05/16/2024 1:41 PM EST) Prothrombin Time INR 2.8(H) 0.9 - 1.1 [facility] Comment:METER #: [id number] TERNATIONAL NORMALIZED RATIO (INR) REFERENCE RANGES Reference [...] Provider LAB BLOOD ORDERAB LES Final Result [facility] [address] [place] [phone] documented in this encounter Visit Diagnoses Not on filedocumented in this encounter Additional Health Concerns Assessment Noted Time PHQ-9 Depression Total Score: 18 024 12:25 PM EST documented as of this encounter Care Teams Rn Relief Charge Relationship Specialty Start Date End Date Shruti Campos MD [address] [place] [address] PCP - General Internal Medicine 05/11/23 documented as of this encounter
--- OUTSIDE RECORDS SUMMARY | 2024-05-16 15:11 | XMS_ITS | Referral Summary ---
Author Organization [facility] Address [address] [place] [address] Care Team Providers Care It Program Engagement Director Name Role Phone Unavailable Primary Care Provider Unavailabl e Encounters Date Type Department Care Team Description 03/25/2024 Refill [facility] 4th floor Cardiology Medicine [address] [place] [phone] Sizer Machine: Carmen Smith DO from Last 3 Months [...] pain syndrome 01/20/2019 Episodic mood disorder 05/15/2018 alf (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 2017 PVD (peripheral [...] absorb on its own. Follow up with SENIOR RADIATION THERAPIST in 2-3 weeks to discuss management of [...] scheduled for 05/01 at 11:15 AM [address] [facility] Essential hypertension 04/23/2017 Assessment & Plan [...] asymptomatic. Recommend follow up with Dr. Liriano -SENIOR RADIATION THERAPIST in 2-3 weeks after discharge. Patient to [...] Not on file Procedures * Due to [place] state law, this organization might not be sharing negative HIV tests. Procedure Name Priority Date/Time Associated Diagnosis Comments POCT HEMOGLOBIN A1C, CMG, NON-INTERFACED Routine 06/05/2022 11:58 AM EDT Type 2 diabetes mellitus with other specified complication, unspecified whether watermelon inspector insulin use (CMS/HCC) (HCC) BASIC METABOLIC PANEL STAT 06/02/2022 12:15 PM EDT [facility] W/HPV, MRNA E6/E7, REFLEX 16/18/45 Routine 08/08/2017 11:00 AM EDT Screening for malignant neoplasm of cervix Screening for human papillomavirus HEPATITIS C ANTIBODY, CONVERSION Routine 09/16/2010 12:21 PM EDT from Last 3 Months or Most Recently Relevant to Health Maintenance Results * Due to [place] state law, this organization might not be [...] 5 - 15 06/02/2022 1:07 PM EDT [facility] eGFR 74(L) >=90 mL/min/1. 73m2 06/02/2022 1:07 PM EDT [facility] Comment: Estimated Glomerular Filtration Rate (GFR) [...] Vazquez MD LAB BLOOD ORDERABLES Final Result [facility] [address] [place] [address], * (ABNORMAL) [facility] Pap w/HPV, mRNA E6/E7, Reflex 16/18/45 (08/08/2017 11:00 AM EDT) [facility] TIS, mRNA E6/E7 Jessica See Below(A) [facility] Comment: TIS,mRNA E6/E7 JESSICA ?? CLINICAL INFORMATION: [...] evaluated with computer ? assisted technology. ?? HEALTH SCIENCE SPECIALIST: ? MPG, CT(ASCP) ? CT screening location: [facility] ? [address] ? [place], [place] ??[address] ?? PATHOLOGIST: ? Maxwell Oreilly M.D. Direct , ? Board Certified in Anatomic and Clinical ? Pathology and Cytopathology ? (electronic signature) ? Consulting Pathologist ? [facility] ? [address] ? [place] [address] ? [phone] ?? HPV mRNA E6/E7 ? Not Detected ? REFERENCE RANGE: Not Detected ? This test was performed using the APTIMA HPV Assay ([employer] ? This assay detects E6/E7 viral [...] ORDER STELLA Final Result [facility] [address] [facility] 3rd Floor, [place] [address], [facility] [address], [place] [address], * HEPATITIS C ANTIBODY, CONVERSION (09/16/2010 12:21 PM EDT) Hepatitis C Antibody <0.02 <1.00 [facility] Comment: Negative Not infected with HCV, unless recent infection is suspected or other evidence exists to indicate HCV infection. 09/16/2010 12:2 1 PM EDT 09/16/2010 1:08 PM EDT Paula Valdez MD LAB HISTORICAL RESULTS F inal Result [facility] [address] [place] [address], from Last 3 Months or Most Recently Relevant to Health Maintenance Insurance [facility] Advance Directives Documents on File Type Date Recorded Patient Appeals Specialist Expl anation Advance Directive 01/14/2011 12:00 [...] Name Relationship Healthcare Agent Relationship Communication Shruti Nevraez Mother Next of Kin Clayton Cooper Significant Other Next of Kin
--- OUTSIDE RECORDS SUMMARY | 2024-05-16 15:11 | XMS_ITS | Encounter Summary ---
Author Organization [employer] Address [address] [facility] [address] [place] [address] Care Team Providers Care Basic Sciences Professor Name Role Phone Shruti Campos MD Primary Care Pro vider Reason for Visit * Reason Onset Date Comments Nurse Triage 04/01/2024 Encounter Details Date Type Department Care Team ([facility] st Contact Info) Description 04/01/2024 Telephone [facility] [address] [place], [place] [phone] Shruti Campos MD [address] [place], [place] [phone] Nurse Triage Social History Tobacco Use Types [...] as prescribed at that time (only information technology account manager found on chart). Pt reports thatwas an [...] to touch The caller accepted this outcome. [phone] documented in this encounter Plan of Treatment Not on file documented as of this encounter Visit Diagnoses Not on filedocumented in this encounter Additional Health Concerns Assessment Noted Time PHQ-9 Depression Total Score: 18 024 12:25 PM EST documented as of this encounter Care Teams Basic Sciences Professor Relationship Specialty Start Date End Date Shruti Campos MD [address] [place] [address] PCP - General Internal Medicine 05/11/23 documented as of this encounter
--- OUTSIDE RECORDS SUMMARY | 2024-05-16 15:11 | XMS_ITS | Clinical Summary ---
Author Organization [facility] Address [address] [place] [address] Care Team Providers Care Patient Companion Name Role Phone Lisette Murillo Shelia Primary Care Provider [phone] Allergies No known active allergies Medications Oxycodone-Acetamin [...] MG Tab 1 TABLET twice daily Active Kkagxnrjmy-FFFZ-Hv ffeine (FIORICET) 50-300-40 MG Cap 1 OR [...] complete this topic Procedures * Due to [place] Glassdoor law, this organization might not be sharing [...] to Health Maintenance Results * Due to [place] Glassdoor law, this organization might not be sharing negative HIV tests. * (ABNORMAL) SU[facility]PATH FPGS,HPV,CT/GC PANEL (08/24/2014 4:01 PM EDT) Clinical information NONE GIVEN [facility] Comment:{CLINICAL INFORMATIO N: {[id number]) Date last menstrual period [id number] [facility] Comment:{LMP: {[id number]) Date of previous PAP smear NONE GIVEN [facility] Comment:{PREV. PAP: {[id number]) Date of previous biopsy NONE GIVEN [facility] Comment:{PREV. BX: {[id number]) Specimen source (Cvx/Vag) Cervix, Endocervix [facility] Comment:{SOURCE: {[id number]) Statement of Adequacy (Cvx/Vag) Satisfactory for evaluation. Endocervical/hearn sformation zone component absent. [facility] Comment:{STATEMENT OF ADEQUA CY: {[id number]) General categories (Cvx/Vag) EPITHELIAL CELL ABNORMALITY(A) [facility] Comment:{GENERAL CATEGORIZAT ION: {[id number]) Cytology, Pap Smear Low Grade Squamous Intraepithelial Lesion (LSIL)(A) [facility] Comment:{INTERPRETATION/RESU LT: {[id number]) Cytology study comment (Cvx/Vag) This Pap test has been evaluated with computer assisted technology. [facility] Comment:{COMMENT: {[id number]) Tin Worker (Cvx/Vag) MPG, CT(ASCP) [facility] Comment:{CUSTOMER QUALITY SPECIALIST: { [id number]) Pathologist (Cvx/Vag) Lorena Mcgrath M.D., Board Certified in Anatomic and Clinical Pathology (electronic signature) Consulting Pathologist [facility] [address] [place] [address] [facility] Comment:{PATHOLOGIST: {[id number]) HPV MRNA E6/E7 Detected(A) Not Detected [facility] Comment: {HPV mRNA E6/E7, SUREPATH VIAL {[id number]) This test was performed using the APTIMA HPV Assay ([employer] This assay detects E6/E7 viral messenger RNA (mRNA) from 14 high-risk HPV types (16,18,31,33,35,39,45,51,52,56,58,59,66,68). The analytical performance characteristics of this assay, when used to test SurePath specimens, have been determined by [facility] [facility]. Chlamydia trachomatis rRNA NOT DETECTED NOT DETECTED [facility] Comment:{CHLAMYDIA TRACHOMAT IS RNA, TMA {[id number]) Neisseria Gonorrhoeae rRNA NOT DETECTED NOT DETECTED [facility] Comment:{NEISSERIA GONORRHOE AE RNA, TMA {[id number]) COMMENT SEE NOTE [facility] Comment: {COMMENT {[id number]) This test was performed using the APTIMA COMBO2 Assay ([employer] The analytical performance characteristics of this assay, when used to test SurePath specimens have been determined by [employer]. 08/24/2014 4:01 PM EDT 08/25/2014 1:12 AM EDT Narrative Resulting Agency Comment [id number] Estephania Skelton [facility] Aissatou l Result Performing Organization Address [facility] Co de Phone Number [facility] [address] [place] [address] * HEPATITIS C ANTIBODY, SERUM (08/24/2014 1:40 PM EDT) Hepatitis C virus Ab NON-REACTI VE NON-REACT LEIGH ANN [facility] Comment:{HEPATITIS C ANTIBOD Y {[id number]) Hepatitis C virus Ab Signal/Cutoff 0.07 <1.00 [facility] Comment:{SIGNAL TO CUT-OFF { [id number]) 08/24/2014 1:40 PM EDT 08/25/2014 12:58 AM EDT Narrative Resulting Agency Comment [id number] Este[facility]ia Skelton [facility] Final Res ult Performing Organization Address [facility] de Phone Number [facility] [address] [place] [address] from Last 3 Months or Most Recently Relevant to Health Maintenance Insurance MEDICAID * Guarantor: [id number] [employer] Account Type Relation to Patient Date of Phone Billing Address Worker's Comp [address] [place] [address] WORKERS COMPENSATION Care Teams Patient Companion Relationship Specialty Start Date End Date Lisette Murillo [address] [address] PCP - General Internal Medicine 11/20/14
--- OUTSIDE RECORDS SUMMARY | 2024-05-16 15:11 | XMS_ITS | Encounter Summary ---
Author Organization [facility] Address [address] [place] [address] Care Team Providers Care Black Top Paver Operator Name Role Phone Paul Mix MD Primary Care Provider [phone] Lisette Murillo Primary Care Provider [phone] Encounter Details Date Type Department Care Team ([facility] st Contact Info) Description 04/30/2013 Orders Only [facility] Orthopedic Surgery [address] [phone] Mandeep Kirk MD [address] [place] [address] Social History Tobacco Use Types Packs/Day Years [...] leg documented in this encounter Care Teams Black Top Paver Operator Relationship Specialty Start Date End Date Paul Mix MD [facility] [address] [place] [address] PCP - General 05/25/09 11/19/14 Lisette Murillo [address] [address] PCP - General Internal Medicine 11/20/14 documented as of this encounter
--- OUTSIDE RECORDS SUMMARY | 2024-05-16 15:11 | XMS_ITS | Encounter Summary ---
Author Organization [employer] Address [address] [facility] [address] [place] [address] Care Team Providers Care Gear Room Keeper Name Role Phone Shruti Campos MD Primary Care Pro vider Reason for Visit * Reason Comments Med Change Request Encounter Details Date Type Department Care Team ([facility] Contact Info) Description 02/12/2024 Refill [facility] [address] [place], [place] [phone] Shruti Campos MD [address] [place], [place] [phone] Social History Tobacco Use Types Packs/Day Years [...] documented as of this encounter Care Teams Gear Room Keeper Relationship Specialty Start Date End Date Shruti Campos MD [address] [place] [address] PCP - General Internal Medicine 05/11/23 documented as of this encounter
--- OUTSIDE RECORDS SUMMARY | 2024-05-16 15:11 | XMS_ITS | Clinical Summary ---
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 Follow up with COMPREHENSIVE OPHTHALMOLOGIST in 2-3 weeks to discuss management of [...] scheduled for 05/01 at 11:15 AM at [facility] Essential hypertension 04/23/2017 Assessment & Plan [...] asymptomatic. Recommend follow up with Dr. Liriano -COMPREHENSIVE OPHTHALMOLOGIST in 2-3 weeks after discharge. Patient to [...] PRN for SOB - Supplemental O2 by IN for O2 sats <92 - Dextromorphan PRN [...] Type Department Care Team Description 03/25/2024 [facility] 4th floor Cardiology Medicine [address] [phone] Recruiting Operations Consultant: Carmen Smith DO from Last 3 Months [...] Varicella Vaccines Discontinued Procedures * Due to [place] [employer] law, this organization might not be sharing negative HIV tests. Procedure Name Priority Date/Time Associated Diagnosis Comments POCT HEMOGLOBIN A1C, CMG, NON-INTERFACED Routine 06/05/2022 11:58 AM EDT Type 2 diabetes mellitus with other specified complication, unspecified whether detention insulin use (CMS/HCC) (HCC) BASIC METABOLIC PANEL STAT 06/02/2022 12:15 PM EDT [facility] W/HPV, MRNA E6/E7, REFLEX 16/18/45 Routine 08/08/2017 11:00 AM EDT Screening for malignant neoplasm of cervix Screening for human papillomavirus HEPATITIS C ANTIBODY, CONVERSION Routine 09/16/2010 12:21 PM EDT from Last 3 Months or Most Recently Relevant to Health Maintenance Results * Due to [place] [employer] law, this organization might not be sharing [...] - 145 mmol/L 06/02/2022 1:07 PM EDT [facility] K 3.9 3.5 - 5.3 mmol/L 06/02/2022 1:07 PM EDT [facility] Cl 105 98 - 107 mmol/L 06/02/2022 1:07 PM EDT [facility] CO2 26 22 - 30 mmol/L 06/02/2022 1:07 PM EDT [facility] BUN 13 7 - 18 mg/dL 06/02/2022 1:07 PM EDT [facility] Creatinine 0.98 0.60 - 1.30 mg/dL 06/02/2022 1:07 PM EDT [facility] Glucose 129(H) 70 - 99 mg/dL 06/02/2022 1:07 PM EDT [facility] Calcium 9.6 8.5 - 10.1 mg/dL 06/02/2022 1:07 PM EDT [facility] Anion Gap 2(L) 5 - 15 06/02/2022 1:07 PM EDT [facility] eGFR 74(L) >=90 mL/min/1. 73m2 06/02/2022 1:07 PM EDT [facility] Comment: Estimated [...] BLOOD ORDERABLES Final Result Performing Organization Address City/State/[facility] Co de Phone Number [facility] [address] [place] [address], * (ABNORMAL) [facility] Pap w/HPV, mRNA E6/E7, Reflex 16/18/45 (08/08/2017 11:00 AM EDT) [facility] TIS, mRNA E6/E7 Jessica See Below(A) [email or web address] Comment: TIS,mRNA E6/E7 JESSICA ?? CLINICAL INFORMATION: [...] evaluated with computer ? assisted technology. ?? ROSE GRADER: ? MPG, CT(ASCP) ? CT screening location: [facility] ? [address] ? [place], [place] ??[address] ?? PATHOLOGIST: ? Maxwell Oreilly M.D. Direct , ? Board Certified in Anatomic and Clinical ? Pathology and Cytopathology ? (electronic signature) ? Consulting Pathologist ? [facility] ? [address] ? [place] [address] ? [phone] ?? HPV mRNA E6/E7 ? Not Detected ? REFERENCE RANGE: Not Detected ? This test was performed using the APTIMA HPV Assay (Zencoder.). ? This assay detects E6/E7 viral messenger [...] ORDER STELLA Final Result [facility] [address] [facility] 3rd Floor, [place] [address], [place] [phone] [facility] [address] 3rd Floor, [place] [address], [place] [phone] * HEPATITIS C ANTIBODY, CONVERSION (09/16/2010 12:21 PM EDT) Hepatitis C Antibody <0.02 <1.00 IV [facility] Comment: Negative Not infected with HCV, unless recent infection is suspected or other evidence exists to indicate HCV infection. 09/16/2010 12:2 1 PM EDT 09/16/2010 1:08 PM EDT us Paula Valdez MD LAB HISTORICAL RESULTS F inal Result [facility] [address] [place] [address], [place] from Last 3 Months or Most Recently Relevant to Health Maintenance Insurance [facility] Advance Directives Documents on File Type Date Recorded Patient Surgery Manager Expl 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
--- OUTSIDE RECORDS SUMMARY | 2024-05-16 15:11 | XMS_ITS | Encounter Summary ---
Author Organization [employer] Address [address] [facility] [address] [place] [address] Care Team Providers Care Scouts Name Role Phone Shruit Campos MD Primary Care Pro vider Reason for Visit * Reason Comments Med Refill Encounter Details Date Type Department Care Team ([facility] st Contact Info) Description 12/16/2023 Refill [facility] MEDICINE [address] [place], [place] [phone] Shruti Campos MD [address] [place], [place] [phone] Social History Tobacco Use Types Packs/Day Years [...] documented as of this encounter Care Teams Scouts Relationship Specialty Start Date End Date Shruti Campos MD [address] [place] [address] PCP - General Internal Medicine 05/11/23 documented as of this encounter
--- OUTSIDE RECORDS SUMMARY | 2024-05-16 15:12 | XMS_ITS | Encounter Summary ---
Author Organization [employer] Address [address] [facility] [address] [place] [address] Care Team Providers Care Advisory Application Developer Name Role Phone Shruti Campos MD Primary Care Pro vider Reason for Visit * Reason Onset Date Comments Prior Authorization 04/22/2024 Encounter Details Date Type Department Care Team ([facility] st Contact Info) Description 04/22/2024 Telephone [facility] MEDICINE [address] [place], [place] [phone] Shruti Campos MD [address] [place], [place] [phone] Prior Authorization Social History Tobacco Use Types [...] the past 12 months, has t he [employer] [place], gas, oil or water [employer] threatened to shut off services in your [...] PA approval received for OZEMPIC. Scanned into [employer]. * Telephone Encounter - Angelina Stweart RN - 04/24/2024 8:34 AM EST Confirmation received. * Telephone Encounter - Angelina Stewart RN - 04/23/2024 4:27 PM EST Faxed signed second PA packet for Ozempic back to [facility]. * Telephone Encounter - Christy Crespo RN [...] from pt stating she was advised by General Blood to request alternative for semaglutide (Ozempic) 2MG/1.5ML solution pen-injector. Pt is requesting a call back to further discuss options. Contact pt at [phone] documented in this encounter Plan of Treatment Not on file documented as of this encounter Visit Diagnoses Not on filedocumented in this encounter Additional Health Concerns Assessment Noted Time PHQ-9 Depression Total Score: 18 024 12:25 PM EST documented as of this encounter Care Teams Advisory Application Developer Relationship Specialty Start Date End Date Shruti Campos MD [address] [place] [address] PCP - General Internal Medicine 05/11/23 documented as of this encounter
--- OUTSIDE RECORDS SUMMARY | 2024-05-16 15:12 | XMS_ITS | Encounter Summary ---
Author Organization [employer] Address [address] [facility] [address] [place] [address] Care Team Providers Care Wood Strip Block Floor Installer Name Role Phone Shruti Campos MD Primary Care Pro vider Reason for Visit * Reason Onset Date Comments Prior Authorization 04/08/2024 RYAN Majores t: [place] Encounter Details Date Type Department Care Team ([facility] st Contact Info) Description 04/08/2024 Telephone [facility] MEDICINE [address] [place], [place] [phone] Shruti Campos MD [address] [place], [place] [phone] Prior Authorization (IRVIN DAVIS Request: [place]) Social [...] PA anni High signed and faxed to [employer]. Confirmation received and sent to [facility]. If patient calls to check status on above, please advise them to contact Pharmacy . * Telephone Encounter - Stephania Paul - 04/08/2024 10:48 AM EST PA anni High from [facility] placed on PCP desk for signature. * Telephone Encounter - Stephania Paul - 04/08/2024 10:48 AM EST ----- Message from Nurse Angelina Pryor sent at 04/07/2024 3:26 PM EST ----- ----- Message ----- From: JAMES Garcia Sent: 04/07/2024 1:40 PM EST To: [facility] Team Nurses Please pursue PA for semaglutide for diabetes, + ROX to Maribeth documented in this encounter Plan of Treatment Not on file documented as of this encounter Visit Diagnoses Not on filedocumented in this encounter Additional Health Concerns Assessment Noted Time PHQ-9 Depression Total Score: 18 024 12:25 PM EST documented as of this encounter Care Teams Wood Strip Block Floor Installer Relationship Specialty Start Date End Date Shruti Campos MD [address] [place] [address] PCP - General Internal Medicine 05/11/23 documented as of this encounter
--- OUTSIDE RECORDS SUMMARY | 2024-05-16 15:12 | XMS_ITS | Patient Health Record ---
Author Organization [facility] Address [address] [place] [address] Care Team Providers Care Traffic Engineering Technician Name Role Phone Ellis Lee Primary Care Provider Tom Aleman Unavailable ALLERGIES Allergen (clinical drug ingredient) Drug/Non Drug Allergy documented on EMR Reaction Allergy Type Onset Date Status Lisinopril cough Drug Allergy Active REASON FOR REFERRAL No Information MEDICATIONS Medication [...] Problem Paroxysmal atrial fibrillation (I48.0) Active confirmed 823969847 Problem Mild intermittent asthma, uncomplicated (J45.20) Active confirmed 2 Mild intermittent asthma (733877594) Problem Obstructive sleep apnea (adult) (pediatric) (G47.33) Active confirmed Obstructive sleep apnea syndrome (disorder) (80125739) Problem Morbid (severe) obesity due to excess calories (E66.01) Active confirmed Morbid obesity (disorder) (156394837) Problem Adjustment disorder with anxiety (F43.22) Active confirmed Adjustment disorder with anxiety (92804198) Problem Anxiety (F41.9) Active confirmed 566944 02 Problem Essential hypertension (I10) Active confirmed Essential hypertension (05856084) Problem Accelerated hypertension (I10) Active confirmed 2 24217025 Problem ANGELA (obstructive sleep apnea) (G47.33) Active confirmed Obstructive sleep apnea syndrome (63858616) Problem Atrial fibrillation, unspecified type (I48.91) Active confirmed Atrial fibrillation (53731757) PLAN OF TREATMENT Pending Test Test Name [...] HEALTH MEDICAID [address] [place] [id number] Bria Morrison Self - patient is the insured 3 MEDICAL (GENERAL) HISTORY Medical History History ICD Code preserved LV function with EF 65-70% by echo Apr paroxysmal atrial fibrillati on, rate conrol/AC, [id number] = 2, HTN, female moderate to severe concentric LVH by ech o Apr resistant hypertension asthma obstructive sleep apnea obesity anxiety ruptured ovarian cyst/hemato ma peritoneum requiring reversal of oral anticoagulation July 2017
--- OUTSIDE RECORDS SUMMARY | 2024-05-16 15:12 | XMS_ITS | Encounter Summary ---
Author Organization [employer] Address [address] [facility] [address] [place] [address] Care Team Providers Care International Sales Manager Name Role Phone Shruti Campos MD Primary Care Pro vider Reason for Visit * Reason Onset Date Comments Durable Medical Equipment 10/09/2023 Encounter Details Date Type Department Care Team ([facility] st Contact Info) Description 10/09/2023 Telephone [facility] MEDICINE [address] [place], [place] [phone] Shruti Campos MD [address] [place], [place] [phone] Durable Medical Equipment Social History Tobacco Use [...] t he electric, gas, oil or water [facility] threatened to shut off services in your [...] documented as of this encounter Care Teams International Sales Manager Relationship Specialty Start Date End Date Shruti Campos MD [address] [place] [address] PCP - General Internal Medicine 05/11/23 documented as of this encounter
--- OUTSIDE RECORDS SUMMARY | 2024-05-16 15:12 | XMS_ITS | Encounter Summary ---
Author Organization [employer] Address [address] [facility] [address] [place] [address] Care Team Providers Care Nick Setter Name Role Phone Shruti Campos MD Primary Care Pro vider Reason for Visit * Reason Comments Med Refill Encounter Details Date Type Department Care Team (Late st Contact Info) Description 05/11/2024 Refill [facility] MEDICINE [address] [place], [place] [phone] Ryanne Vega MD 230 [place], [place] [phone] Social History Tobacco Use Types Packs/Day Years [...] documented as of this encounter Care Teams Nick Setter Relationship Specialty Start Date End Date Shruti Campos MD [address] [place] [address] PCP - General Internal Medicine 05/11/23 documented as of this encounter
--- OUTSIDE RECORDS SUMMARY | 2024-05-16 15:12 | XMS_ITS | Encounter Summary ---
Author Organization [employer] Address [address] [facility] [address] [place] [address] Care Team Providers Care Fire Chief'S Aide Name Role Phone Shruti Campos MD Primary Care Pro vider Reason for Visit * Reason Comments Med Change Request Encounter Details Date Type Department Care Team (Late st Contact Info) Description 04/19/2024 Refill [facility] MEDICINE [address] [place], [place] [phone] Althea Chilel ANP [address] [place], [place] [phone] Social History Tobacco Use Types Packs/Day Years [...] reviewed warfarin refill request. Pt follows with [facility]. Last seen 04/07/24 with INR [...] documented as of this encounter Care Teams Fire Chief'S Aide Relationship Specialty Start Date End Date Shruti Campos MD [address] [place] [address] PCP - General Internal Medicine 05/11/23 documented as of this encounter
--- OUTSIDE RECORDS SUMMARY | 2024-05-16 15:12 | XMS_ITS | Encounter Summary ---
Author Organization [employer] Address [address] [facility] [address] [place] [address] Care Team Providers Care Release Of Information Clerk Name Role Phone Shruti Campos MD Primary Care Pro vider Reason for Visit * Reason Comments Med Refill Encounter Details Date Type Department Care Team ([facility] st Contact Info) Description 04/25/2024 Refill [facility] MEDICINE [address] [place], [place] [phone] Shruti Campos MD [address] [place], [place] [phone] Social History Tobacco Use Types Packs/Day Years [...] documented as of this encounter Care Teams Release Of Information Clerk Relationship Specialty Start Date End Date Shruti Campos MD [address] [place] [address] PCP - General Internal Medicine 05/11/23 documented as of this encounter
== END 2024-05-16 13:48 | disposition home or self-care (01) ==
LOC: HO.ACS 13:33
PROVIDERS: PCP Student in an Organized Health Care Education/Training Program; Visit Provider Internal Medicine
DX: Z79.01 Long term (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 (principal)

== ENCOUNTER → 2024-05-16 13:33 | Outpatient (BNVA) | payer MEDICAID, SELFPAY | PROVIDERS: PCP Student in an Organized Health Care Education/Training Program; Visit Provider Internal Medicine | DX: I48.91 Unspecified atrial fibrillation (principal); Z79.01 Long term (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; Z51.81 Encounter for therapeutic drug level monitoring | CPT/HCPCS: 85610; 99211 ==

== ENCOUNTER 2024-06-13 13:33 | Outpatient (AMB) | payer MEDICAID, SELFPAY ==
[2024-06-13 13:54] LABS: Prothrombin Time Whole Bld POC 29.1 sec (11.1-13.5); ~PT, ~INR - Anti Coag Clinic 2.4 (0.9-1.1)
--- NOTE | 2024-06-13 14:00 | MHC.OFFVISCO ---
Intake Intake Visit Reasons: Anticoagulation Allergies lisinopril Allergy (Mild, Verified 06/13/24 13:46) Cough Medication List - Last Reconciled 06/13/24 by Li Dumont RN albuterol sulfate 90 mcg/actuation (Ventolin HFA) 2 puffs inhalation Q6H PRN atorvastatin 10 mg PO DAILY bisacodyl 5 mg PO DAILY PRN cholecalciferol (vitamin D3) 50 mcg PO DAILY clonidine HCl 0.2 mg PO BID diltiazem HCl CD 120 mg PO DAILY docusate sodium 100 mg PO BID PRN ferrous gluconate 324 mg PO 3XW linaclotide (Linzess) 145 mcg PO QAM loratadine 10 mg PO DAILY lorazepam 0.5 mg PO QAM PRN losartan 25 mg PO DAILY metoprolol succinate ER 25 mg PO BID omeprazole 20 mg PO DAILY polyethylene glycol 3350 (Gavilax) 17 grams PO DAILY semaglutide (Ozempic) 1 mg subcut QWEEK warfarin 2 mg See Protocol PO DIRECTED Nursing Note INR: 2.3 in therapeutic range Medications and supplements reviewed No changes in health, diet, medications, or supplements, Denies any signs and symptoms of bleeding or bruising or clotting. Bleeding, bruising, clotting discussed Nutritional guidance given Dose: keep same dose 2mg daily F/U INR: 1 month Patient verbalizes understanding of instructions given with read back Anti-Coag Initial Assessment Social Hx Patient Tobacco Use Status: Former Tobacco user Smoking packs per day: 0.5 alcohol intake: never Cardiovascular Hx: HTN and Arrhythmias Lung Disease HX: Asthma Endocrine Hx: Diabetes Musculoskeletal Hx: Osteoporosis Blood Disorder Hx: Anemia and Hyperlipidemia Hx: Kidney Disease Neurological Hx: Migraines/Headaches Cancer HX: No Psych. Illness/Depression: Yes Coding Level of Care Code Est Patient Level 1 Diagnoses Current use of anticoagulant therapy Z79.01 Assessment & Plan Assessment & Plan (1) Current use of anticoagulant therapy: Code(s): Z79.01 - FPC (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 Category: Medical
--- OUTSIDE RECORDS SUMMARY | 2024-06-13 15:22 | XMS_ITS | Encounter Summary ---
Author Organization [facility] Address [address] [place] [address] Care Team Providers Care Pattern Vault Clerk Name Role Phone Unavailable Primary Care Provider Unavailabl e Reason for Visit * Reason Comments Med Refill Encounter Details Date Type Department Care Team (Late st Contact Info) Description 06/12/2024 Refill [facility] 4th floor Cardiology Medicine [address] [place], [place] [phone] Retail Business Development Manager: Carmen Smith DO [address] [place], [place] [phone] Social History Tobacco Use Types Packs/Day Years [...] encounter Miscellaneous Notes * Telephone Encounter - Lesli Hale LPN - 06/12/2024 8:19 AM EDT Patient need's appointment for refills. Marvin call our office to schedule [phone] documented in this encounter Plan of Treatment Not on file documented as of this encounter Visit Diagnoses Not on filedocumented in this encounter
--- OUTSIDE RECORDS SUMMARY | 2024-06-13 15:22 | XMS_ITS | Encounter Summary ---
Author Organization [employer] Address [address] [facility] [address]t [place] [address] Care Team Providers Care Diagnostic Tech Name Role Phone Shruti Campos MD Primary Care Pro vider Reason for Visit * Reason Comments Med Refill Encounter Details Date Type Department Care Team ([facility] Contact Info) Description 06/08/2024 Refill [facility] MEDICINE [address] [place], [place] [phone] Shruti Campos MD [address] [place] [address] Social History Tobacco Use Types Packs/Day Years [...] as of this encounter Plan of Treatment Upcoming Encounters Date Type Department Care Team (Late st Contact Info) Description 07/21/2024 1:00 PM EDT Office Visit [facility] MEDICINE [address] [place] [phone] Shruti Campos MD [address] [place] [address] documented as of this encounter Visit Diagnoses Not on filedocumented in this encounter Additional Health Concerns Assessment Noted Time PHQ-9 Depression Total Score: 18 024 12:25 PM EST documented as of this encounter Care Teams Diagnostic Tech Relationship Specialty Start Date End Date Shruti Campos MD [address] [place] [address] PCP - General Internal Medicine 05/11/23 documented as of this encounter
--- OUTSIDE RECORDS SUMMARY | 2024-06-13 15:22 | XMS_ITS | Encounter Summary ---
Author Organization [employer] Address [address] [facility] 7t [place] [address] Care Team Providers Care Ocular Care Aide Name Role Phone Shruti Campos MD Primary Care Pro vider Reason for Visit * Reason Comments Med Refill Encounter Details Date Type Department Care Team ([facility] st Contact Info) Description 06/12/2024 Refill [facility] MEDICINE [address] [place], [place] [phone] Shruti Campos MD [address] [place] [address] Social History Tobacco Use Types Packs/Day Years [...] 07/21/2024 1:00 PM EDT Office Visit [facility] MEDICINE [address] [place] [address] Shruti Campos MD [address] [place] [address] documented as of this encounter Visit Diagnoses Not on filedocumented in this encounter Additional Health Concerns Assessment Noted Time PHQ-9 Depression Total Score: 18 024 12:25 PM EST documented as of this encounter Care Teams Ocular Care Aide Relationship Specialty Start Date End Date Shruti Campos MD [address] [place] [address] PCP - General Internal Medicine 05/11/23 documented as of this encounter
--- OUTSIDE RECORDS SUMMARY | 2024-06-13 15:22 | XMS_ITS | Encounter Summary ---
Author Organization [facility] Address [address] [place] [address] Care Team Providers Care Collection Manager Name Role Phone Paul Mix MD Primary Care Provider [phone] Lisette Murillo Primary Care Provider [phone] Encounter Details Date Type Department Care Team ([facility] st Contact Info) Description 08/24/2014 Orders Only [facility] [address] [place] [phone] Estephania Skelton, KSENIA [address] [place] [address] Social History Tobacco Use Types Packs/Day Years [...] of this encounter Procedures * Due to [place] [employer] law, this organization might not be sharing [...] in this encounter Results * Due to [place] [employer] law, this organization might not be sharing negative HIV tests. * (ABNORMAL) [facility] FPGS,HPV,CT/GC PANEL (08/24/2014 4:01 PM EDT) Clinical information NONE GIVEN [facility] Comment:{CLINICAL INFORMATIO N: {[id number]) Date last menstrual period [id number] [facility] Comment:{LMP: {[id number]) Date of previous PAP smear NONE GIVEN [facility] Comment:{PREV. PAP: {[id number]) Date of previous biopsy NONE GIVEN [facility] Comment:{PREV. BX: {[id number]) Specimen source (Cvx/Vag) Cervix, Endocervix [facility] Comment:{SOURCE: {[id number]) Statement of Adequacy (Cvx/Vag) Satisfactory for evaluation. Endocervical/hearn sformation zone component absent. [facility] Comment:{STATEMENT OF ADEQUA CY: {[id number]) General categories (Cvx/Vag) EPITHELIAL CELL ABNORMALITY(A) [facility] Comment:{GENERAL CATEGORIZAT ION: {[id number]) Cytology, Pap Smear Low Grade Squamous Intraepithelial Lesion (LSIL)(A) [facility] Comment:{INTERPRETATION/RESU LT: {[id number]) Cytology study comment (Cvx/Vag) This Pap test has been evaluated with computer assisted technology. [facility] Comment:{COMMENT: {[id number]) Life Support Technician (Cvx/Vag) MPG, CT(ASCP) [facility] Comment:{HUMAN RESOURCES INTERN: { [id number]) Pathologist (Cvx/Vag) Lorena Mcgrath M.D., Board Certified in Anatomic and Clinical Pathology (electronic signature) Consulting Pathologist [facility] [address] [place] [address] [facility] Comment:{PATHOLOGIST: {[id number]) HPV MRNA E6/E7 Detected(A) Not Detected [facility] Comment: {HPV mRNA E6/E7, [facility] VIAL {[id number]) This test was performed using the APTIMA HPV Assay ([employer] This assay detects E6/E7 viral messenger RNA (mRNA) from 14 high-risk HPV types (16,18,31,33,35,39,45,51,52,56,58,59,66,68). The analytical performance characteristics of this assay, when used to test [facility] specimens, have been determined by [employer] Chlamydia trachomatis rRNA NOT DETECTED NOT DETECTED [facility] Comment:{CHLAMYDIA TRACHOMAT IS RNA, TMA {[id number]) Neisseria Gonorrhoeae rRNA NOT DETECTED NOT DETECTED [facility] Comment:{NEISSERIA GONORRHOE AE RNA, TMA {[id number]) COMMENT SEE NOTE [facility] Comment: {COMMENT {[id number]) This test was performed using the APTIMA COMBO2 Assay ([employer] The analytical performance characteristics of this assay, when used to test [facility] specimens have been determined by [employer]. 08/24/2014 4:01 PM EDT 08/25/2014 1:12 AM EDT Narrative Resulting Agency Comment [id number] Estephania Skelton [facility] Aissatou l Result Performing Organization Address [facility] Co de Phone Number [facility] [address] [place] [address] * RPR, (RAPID PLASMIN REAGIN) WITH REFLEX TO FTA, DIAGNOSTIC (08/24/2014 1:40 PM EDT) Reagin Ab NON-REACT LEIGH ANN NON-REACT LEIGH ANN [facility] Comment:{RPR (DX) W/REFL TIT ER AND CONFIRMATORY TESTING {[id number]) 08/24/2014 1:40 PM EDT 08/25/2014 12:58 AM EDT Narrative Resulting Agency Comment [id number] Estephania Nafisa [facility] Final Res ult Performing Organization Address [facility] Co de Phone Number [facility] [address] [place] [phone] * HEPATITIS C ANTIBODY, SERUM (08/24/2014 1:40 PM EDT) Hepatitis C virus Ab NON-REACTI VE NON-REACT LEIGH ANN [facility] Comment:{HEPATITIS C ANTIBOD Y {[id number]) Hepatitis C virus Ab Signal/Cutoff 0.07 <1.00 [facility] Comment:{SIGNAL TO CUT-OFF { [id number]) 08/24/2014 1:40 PM EDT 08/25/2014 12:58 AM EDT Narrative Resulting Agency Comment [id number] [facility] Final Res ult Performing Organization Address City/[facility] Co de Phone Number [facility] [address] [place] [address] documented in this encounter Visit Diagnoses Diagnosis Encounter for routine gynecological examination Routine gynecological examination documented in this encounter Care Teams Collection Manager Relationship Specialty Start Date End Date Paul Mix MD [facility] [address] [place] [address] PCP - General 05/25/09 11/19/14 Lisette Murillo [facility] [address] [place] [address] PCP - General Internal Medicine 11/20/14 documented as of this encounter
--- OUTSIDE RECORDS SUMMARY | 2024-06-13 15:22 | XMS_ITS | Encounter Summary ---
Author Organization [facility] Address [address] [place] [address] Care Team Providers Care Outer Diameter Technician Name Role Phone Paul Mix MD Primary Care Provider [phone] Lisette Murillo Primary Care Provider [phone] Encounter Details Date Type Department Care Team ([facility] st Contact Info) Description 04/30/2013 Orders Only [facility] Orth[facility] [address] [phone] Mandeep Kirk MD [address] [place] [address] Social History Tobacco Use Types Packs/Day Years [...] leg documented in this encounter Care Teams Outer Diameter Technician Relationship Specialty Start Date End Date Paul Mix MD [facility] [address] [place] [address] PCP - General 05/25/09 11/19/14 Lisette Murillo [address] [address] PCP - General Internal Medicine 11/20/14 documented as of this encounter
--- OUTSIDE RECORDS SUMMARY | 2024-06-13 15:22 | XMS_ITS | Encounter Summary ---
Author Organization [facility] [employer] Address [address] [facility] 7[address] [place] [address] Care Team Providers Care Domestic Freight Forwarder Name Role Phone Shruti Campos MD Primary Care Pro vider Reason for Visit * Reason Comments Med Refill Encounter Details Date Type Department Care Team ([facility] Contact Info) Description 12/16/2023 Refill [facility] [address] [place], [place] [phone] Shruti Campos MD [address] [place] [address] Social History Tobacco Use Types Packs/Day Years [...] Description 07/21/2024 1:00 PM EDT Office Visit [facility] [address] [place] [address] Shruti Campos MD [address] [place] [address] documented as of this encounter Visit Diagnoses Not on filedocumented in this encounter Additional Health Concerns Assessment Noted Time PHQ-9 Depression Total Score: 18 024 12:25 PM EST documented as of this encounter Care Teams Domestic Freight Forwarder Relationship Specialty Start Date End Date Shruti Campos MD [address] [place] [address] PCP - General Internal Medicine 05/11/23 documented as of this encounter
--- OUTSIDE RECORDS SUMMARY | 2024-06-13 15:22 | XMS_ITS | Clinical Summary ---
Author Organization [facility] Address [address] [place] [address] Care Team Providers Care Criminal Justice Lawyer Name Role Phone Unavailable Primary Care Provider [...] pain syndrome 01/20/2019 Episodic mood disorder 05/15/2018 director long term care (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 2017 PVD (peripheral [...] absorb on its own. Follow up with ENGINEER CONDUCTOR in 2-3 weeks to discuss management of [...] 05/01 at 11:15 AM at [facility] Essential hypertension 04/23/2017 Assessment & Plan (07/15/2017 [...] asymptomatic. Recommend follow up with Dr. Liriano -ENGINEER CONDUCTOR in 2-3 weeks after discharge. Patient to [...] PRN for SOB - Supplemental O2 by [place] for O2 sats <92 - Dextromorphan PRN [...] Encounters Date Type Department Care Team Description 06/12/[address] floor Cardiology Medicine [address] [place] [address] Silica Mixer Operator: Carmen Smith DO 03/25/[address] floor Cardiology Medicine [address] [place] [address] Silica Mixer Operator: Carmen Smith DO from Last 3 Months [...] Vaccine (1 - 2023-2 5 season) 2023 Alcohol/Substance Use Screening 03/12/2024 Depression Screening and Follow-Up 03/12/2024 10/23/2022 Social Drivers of Health Sofia ual Screening 03/12/2024 Influenza Vaccine (Season Ended) 2024 01/22/20, 11/29/2010 DTaP,Tdap,and Td Vaccines (3 - Td or Tdap) 04/16/2027 04/16/2017, 08/29/2011 RSV Vaccine (60+ years old a nd patients) (1 - 1-dose 75+ series) 11/07/2054 HIV Screening Completed 09/02/2010 Hepatitis C Screening Completed 09/16/2010 Hepatitis B Vaccines Discontinued Varicella Vaccines Discontinued Procedures * Due to [place] [employer] law, this organization might not be sharing negative HIV tests. Procedure Name Priority Date/Time Associated Diagnosis Comments POCT HEMOGLOBIN A1C, CMG, NON-INTERFACED Routine 06/05/2022 11:58 AM EDT Type 2 diabetes mellitus with other specified complication, unspecified whether rat exterminator insulin use BASIC METABOLIC PANEL STAT 06/02/2022 12:15 PM EDT [facility] W/[facility]PV, MRNA E6/E7, REFLEX 16/18/45 Routine 08/08/2017 11:00 AM EDT Screening for malignant neoplasm of cervix Screening for human papillomavirus HEPATITIS C ANTIBODY, CONVERSION Routine 09/16/2010 12:21 PM EDT from Last 3 Months or Most Recently Relevant to Health Maintenance Results * Due to [place] [employer] law, this organization might not be sharing negative HIV tests. * (ABNORMAL) POCT Hemoglobin A1C, non-interfaced (06/05/2022 11:58 AM EDT) POCT Hemoglobin, A1C 6.6(A) 0 - 5.6 % Blood 06/05/2022 11:5 8 AM EDT Ellis Lee MD POINT OF CARE TEST ORDERABLES Final Result * (ABNORMAL) BMP - Basic Metabolic Panel (06/02/2022 12:15 PM EDT) Pathologist [facility] NA 133(L) 136 - 145 mmol/L 06/02/2022 [...] 5 - 15 06/02/2022 1:07 PM EDT [facility] eGFR 74(L) >=90 mL/min/1. 73m2 06/02/2022 1:07 PM EDT [facility] Comment: Estimated Glomerular Filtration Rate [...] 12:15 PM EDT 06/02/2022 12:41 PM EDT Josiah Vazquez MD LAB BLOOD ORDERABLES Final Result [facility] [address] [place] [address], * (ABNORMAL) [facility] w/HPV, mRNA E6/E7, Reflex 16/18/45 (08/08/2017 11:00 AM EDT) [facility] TIS, mRNA E6/E7 Jessica See Below(A) [employer] Comment: TIS,mRNA E6/E7 JESSICA ?? CLINICAL INFORMATION: ? None given ?? LMP: ? /18 ?? PREV. PAP: ? 2010 PAP LGSIL ?? PREV. BX: ? NONE GIVEN ?? SOURCE: ? Cervix, Endocervix ?? STATEMENT OF ADEQUACY: ? Satisfactory for evaluation. ? Endocervical/transformation zone component ? present. ?? GENERAL CATEGORIZATION: ? EPITHELIAL CELL ABNORMALITY ?? INTERPRETATION/RESULT: ? Low Grade Squamous Intraepithelial Lesion (LSIL) ?? COMMENT: ? This Pap test has been evaluated with computer ? assisted technology. ?? HIRED HELP: ? MPG, CT(ASCP) ? CT screening location: [facility] ? [address] ? [place], [place] ??[address] ?? PATHOLOGIST: ? Maxwell Oreilly M.D. Direct , ? Board Certified in Anatomic and Clinical ? Pathology and Cytopathology ? (electronic signature) ? Consulting Pathologist ? [facility] ? [address] ? [place] [address] ? [phone] ?? HPV mRNA E6/E7 ? Not Detected ? REFERENCE RANGE: Not Detected ? This test was performed using the APTIMA HPV Assay ([employer] ? This assay detects E6/E7 viral messenger [...] structure / Unknown 08/08/2017 11:00 AM EDT us Matthew Pryor MD LAB [facility] ORDER STELLA Final Result [facility] [address], [place] [address], [place] [phone] [facility] [address], [place] [address], [place] [phone] * HEPATITIS C ANTIBODY, CONVERSION (09/16/2010 12:21 PM EDT) Hepatitis C Antibody <0.02 <1.00 IV [facility] [employer] [facility] Comment: Negative Not infected with HCV, unless recent infection is suspected or other evidence exists to indicate HCV infection. 09/16/2010 12:2 1 PM EDT 09/16/2010 1:08 PM EDT Paula Valdez MD LAB HISTORICAL RESULTS F inal Result [facility] [address] [place] [address], from Last 3 Months or Most Recently Relevant to Health Maintenance [place] [id number] [place] Advance Directives Documents on File Type Date Recorded Patient Guidance And Control System Engineer Expl 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
--- OUTSIDE RECORDS SUMMARY | 2024-06-13 15:22 | XMS_ITS | Clinical Summary ---
Author Organization [employer] Address [address] [place] [address] 7t [place] [address] Care Team Providers Care Street Worker Name Role Phone Shruti Campos MD Primary [...] ATTACHED FOR DETAILED DIRECTIONS 06/30/19 24 Active dulaglutide (Trulicity) 1.5 MG/0.5ML solution pen-injector Inject 1.5 mg under the skin 1 (one) time per week. 4 each 11/22/19 24 Active loratadine (Claritin) 10 MG tablet TAKE 1 TABLET BY MOUTH EVERY DAY 90 tablet 1 11/26/19 24 Active Misc. Devices (Pulse Oximeter) misc 1 Device Once per day. 1 each 12/27/19 24 Active atorvastatin (Lipitor) 10 MG tablet TAKE 1 TABLET BY MOUTH EVERY DAY 90 tablet 1 12/28/19 24 Active cholecalcifero l (Vitamin D-3) 50 MCG (1999 UT) capsule TAKE 1 CAPSULE BY MOUTH [...] ia, without long-term current use of insulin (CMS/HCC) Inject 1 mg under the skin 1 [...] WHEEZING. 18 g 2 05/14/19 25 Active docusate sodium (Colace) 100 MG capsule TAKE 1 CAPSULE (100 MG) BY MOUTH ONCE PER DAY. 90 capsule 06/11/19 25 Active Linzess 145 MCG capsule TAKE 1 CAPSULE (145 MCG) BY MOUTH BEFORE BREAKFAST. DO NOT CRUSH OR CHEW. 30 capsule 06/11/19 25 Active Bisacodyl EC 5 MG EC tablet TAKE 1 TABLET BY MOUTH IF NEEDED EACH DAY FOR CONSTIPATION. DO NOT CRUSH, CHEW, OR SPLIT. 90 tablet 06/11/19 25 Active linaCLOtide (Linzess) 145 MCG capsule Take 1 capsule (145 mcg) by mouth before breakfast. Do not crush or chew. 30 capsule 1 11/22/19 24 025 Discontinued Bisacodyl EC 5 MG EC tablet TAKE 1 TABLET BY MOUTH IF NEEDED EACH DAY FOR CONSTIPATION. DO NOT CRUSH, CHEW, OR SPLIT. 90 tablet 1 11/26/19 24 025 Discontinued docusate sodium (Colace) 100 MG capsule Take 1 capsule (100 mg) by mouth Once per day. 90 capsule 12/25/19 24 025 Discontinued Active Problems Problem Noted [...] intervention , [facility], and Patient to reach out to [facility] as needed Mild intermittent asthma 04/10/2019 Glaucoma of left eye 02/15/2019 Chronic pain syndrome 01/20/2019 [facility] (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 2017 PVD (peripheral [...] absorb on its own. Follow up with WET END HELPER in 2-3 weeks to discuss management of [...] Encounters Date Type Department Care Team Description 06/13/2024 Orders Only GENERIC EXTERNAL DATA DEPARTMENT Provider, Generic External Data 06/12/2024 [facility]ill [facility] [address] [facility] [place] [address] Shruti Campos MD 06/12/2024 Refill [facility] [address] [place] [address] Ryanne Vega MD 06/08/2024 Refill [facility] [address] [place] [address] Shruti Campos MD 05/23/2024 Population Health Risk Score [facility] Department [address] [place] [phone] Provider, Population Health Generic 05/20/2024 Telephone [facility] [address] [facility] [place] [address] Shruti Campos MD May recall 05/16/2024 Orders Only GENERIC EXTERNAL DATA DEPARTMENT Provider, Generic External Data 05/11/2024 Refill [facility] [address] [place] [address] Ryanne Vega MD 04/25/2024 Refill [facility] [address] [place] [address] Shruti Campos MD 04/22/2024 Telephone [facility] [address] [place] [address] Shruti Campos MD Prior Authorization 04/19/2024 Refill [facility] [address] [place] [address] Althea Chilel, JAMES 04/10/2024 Refill [facility] [address] [place] [address] Shruti Campos MD Anxiety 04/08/2024 Telephone [facility] [address] [place] [address] Shruti Campos MD Prior Authorization ( PA Request: Lennox) 04/07/2024 1:00 PM EST Office Visit [facility] [address] [place] [address] Althea Chilel ANP Rash (Primary Dx); Type 2 diabetes mellitus with microalbuminuria, without long-term current use of insulin ([facility]); Pain of right heel 04/07/2024 Orders Only GENERIC EXTERNAL DATA DEPARTMENT Provider, Generic External Data 04/07/2024 Travel 04/01/2024 Telephone [facility] [address] [place], [place] [phone] Shruti Campos MD Nurse Triage 03/26/2024 Refill [facility] [address] [place], [place] [phone] Shruti Campos MD from Last 3 Months [...] 12/04/2023 2:05 PM EDT Plan of Treatment Upcoming Encounters Date Type Department Care Team (Late st Contact Info) Description 07/21/2024 1:00 PM EDT Office Visit [facility] [address] [place] [phone] Shruti Campos MD [address] [place] [address] Health Maintenance Due Date Last Done Comments [...] Comments PROTHROMBIN TIME WHOLE BLD POC Routine 06/13/2024 1:52 PM EDT ~PT, ~INR - ANTI COAG CLINIC Routine 06/13/2024 1:52 PM EDT PROTHROMBIN TIME WHOLE BLD POC Routine 05/16/2024 [...] without long-term current use of insulin (CMS/HCC) [facility] PAP AND HPV MRNA E6/E7 [...] * (ABNORMAL) PROTHROMBIN TIME WHOLE BLD POC (06/13/2024 1:52 PM EDT) Only the most recent of3 resultswithin the time period is included. Pathologist [facility] Protime 29.1(H) 11.1 - 13.5 sec [facility] 06/13/2024 1:52 PM EDT 06/13/2024 1:54 PM EDT Generic External Data Provider LAB BLOOD ORDERAB LES Final Result Performing Organization Address [facility] Co de Phone Number [facility] [address] [place] [phone] * (ABNORMAL) ~PT, ~INR - ANTI COAG CLINIC (06/13/2024 1:52 PM EDT) Only the most recent of3 resultswithin the time period is included. [facility] Prothrombin Time INR 2.4(H) 0.9 - 1.1 [facility] Comment:METER #: [id number] TERNATIONAL NORMALIZED RATIO (INR) REFERENCE RANGES Reference RangeFor patients not on anticoagulant therapy: 0.9 - 1.1INR ranges for oral anticoagulanttherapy:For prevention and treatment of venous thrombosis and pulmonary embolism: 2.0 - 3.0For acute myocardial infarction with aspirin therapy: 2.0 - 3.0For acute myocardial infarction without aspirin therapy: 3.0 - 4.0For patients with mechanical prosthetic heart valves: 2.5 - 3.5 06/13/2024 1:52 PM EDT 06/13/2024 1:54 PM EDT Generic External Data Provider LAB BLOOD ORDERAB LES Final Result Performing Organization Address [facility] Co de Phone Number [facility] [address] [place] [address] [phone] * (ABNORMAL) POCT HGB A1C (04/07/2024 1:38 PM EST) [facility] Hemoglobin A1C 7.2(A) 4.0 - 6.0 % QC Media Lot # [id number] Lot# Expiration Date [id number] Blood 04/07/2024 1:38 PM EST Althea RAMIREZ POINT OF CARE TEST ENTER/EDIT OR DERABLES Final Result * [facility] Pap and HPV mRNA E6/E7 (12/04/2023 2:30 PM EDT) HPV nRNA E6/E7 Not Detected Not Detected [facility] Comment:Methodology: Transcr iption-Mediated AmplificationThis assay detects E6/E7 viral messenger RNA (mRNA) from 14high-risk HPV types (16,18,31,33,35,39,45,51,52,56,58,59,66,68).Cervical sources are required for HPV testing.If a vaginal source from a patient who has had atotal hysterectomy with removal of cervix wassubmitted, please contact the testing laboratoryfor alternative testing options.For additional information, please refer tohttp://education.CFX [employer]TERY/faq/EJQ431m3(This link if provided for information/educational purposes only.)THIS TEST WAS PERFORMED AT:[facility] [place] [phone] GONZALEZ MD SOURCE: SEE NOTE [facility] Comment:None given Report Status: [facility] Clinical Information: SEE NOTE [facility] Comment:None given LMP: SEE NOTE [facility] Comment:NONE GIVEN Prev. PAP: SEE NOTE [facility] Comment:NONE GIVEN Prev. BX: SEE NOTE [facility] Comment:NONE GIVEN Statement Of Adequacy: SEE NOTE [facility] Comment:Satisfactory for laureano luation.Endocervical/transformation zone component absent. General Categorization: [facility] Interpretation/Result: SEE NOTE [facility] Comment:Cytology Results: Ne gative for intraepitheliallesion or malignancy. Cytology Comment SEE NOTE [facility] Comment:This Pap test has be en evaluated with computerassisted technology. Container Coordinator: SEE NOTE [facility] Comment:DCR, CT(ASCP)CT scre ening location: [place] [address] Review Container Coordinator: TNP [facility] Pathologist TNP [facility] PAP Infection SEE NOTE [facility] Comment:Shift in vaginal amrik ra suggestive of bacterialvaginosis. See Note SEE NOTE [facility] Comment:EXPLANATORY NOTE:The Pap is a screening test for cervical cancer. It isnot a diagnostic test and is subject to false negativeand false positive results. It is most reliable when asatisfactory sample, regularly obtained, is submittedwith relevant clinical findings and history, and whenthe Pap result is evaluated along with historic andcurrent clinical information. 12/04/2023 2:30 PM EDT 12/04/2023 6:04 PM EDT Narrative [facility] - 12/07/2023 12:53 PM EDT SEE SCANNED RESULTS IN EMR us Pam Guzman [facility] LAB PATHOLOGY ORDERABLES Final Result [facility] [address] [place] [address] [phone] * Referral to Ophthalmology (08/13/2023) us Shruti Handy MD OUTPATIENT REFERR AL ORDERABLES Final Result * BI Mammogram Screening Tomosynthesis Bilateral (08/10/2023 11:20 AM EDT) Anatomical Region Laterality Modality Breast Bilateral Mammography 08/10/2023 11:2 0 AM EDT Narrative 08/28/2023 1:48 PM EDT ? [facility] [place] ? [address] ?[place] [address] ? Mammography Report ? Signed ? Patient: Geri,Bria N ?MR#: [id number] ?? [id number] ? : 1980 ?Acct:[id number] ? Age/Sex: 42 / F ?ADM Date: 05/31/24 ? Loc: HO.MAMMO ? Attending Dr: Shruti Mccain MD ? Ordering Physician: Shruti Campos MD ?Re ?? sults: 1Negative ? Date of Service: 08/10/23 ?Follow Up: 1 Year From Orig ?? inal Mammogram ? Procedure(s): MM tomosynthesis screening BI ?? Accession Number(s): [id number] ? cc: Shruti Campos MD ? EXAMINATION: [...] 1344 ? DD/ 1120 ? TD/TT: ? Title I Director: ? Procedure Note Donotuseinterpreter, Image - 08/28/2023 [facility] [address] [place] [address] Mammography Report Signed Patient: Bria Nevarez NMR#: [id number] : 1980Acct:[id number] Age/Sex: 42 / FADM Date: 08/10/23 Loc: HO.MAMMO Attending Dr: Shruti Mccain MD Ordering Physician: Shruti Campos sults: 1Negative Date of Service: 08/10/23Follow Up: 1 Year From Orig inal Mammogram Procedure(s): MM tomosynthesis screening BI Accession Number(s): [id number] cc: Shruti Campos MD EXAMINATION: MM SCREENING [...] in OV> 08/28/23 1344 DD/ 1120 TD/TT: Title I Director: us Shruti Handy MD IMG BI PROCEDURES Final Result * Hepatitis C Antibody with Reflex to HCV, RNA, Quantitative, Real-Time PCR (06/20/2023 1:38 PM EDT) Hepatitis C Antibody Nonreactive Nonreactive [facility] Comment:Antibodies to HCV no t detected; does not exclude early acuteHCV infection. Blood Venous blood specimen / Unknown 06/20/2023 1:38 PM EDT 06/20/2023 1:38 PM EDT Shruti Handy MD LAB BLOOD ORDERAB LES Final Result [facility] [address] [place] [phone] * HIV-1/2 Antigen and Antibodies, Fourth Generation, with Reflexes (06/20/2023 1:38 PM EDT) HIV AB/AG Nonreactive Nonreactive [facility] Comment:HIV-1 p24 Ag and/or HIV-1/HIV-2 Ab not detected.A test result that is nonreactive does not exclude thepossibility of exposure to or infection with HIV-1 and/orHIV-2. Nonreactive results in this assay for individualswith prior exposure to HIV-1 and/or HIV-2 may be due toantigen and antibody levels that are below the limit ofdetection of this assay.The Provenance HIV Ag/Ab Combo assay result andsupplemental assay results should be interpreted inconjunction with the patient's clinical presentation,history and other laboratory results. If the results areinconsistent with clinical evidence, additional testing issuggested to confirm the result. Blood Venous blood specimen / Unknown 06/20/2023 1:38 PM EDT 06/20/2023 1:38 PM EDT Shruti Handy MD LAB BLOOD ORDERAB LES Final Result [facility] [address] [place] [address] [phone] from Last 3 Months or Most Recently Relevant to Health Maintenance Insurance [employer]) C3 Care Teams Street Worker Relationship Specialty Start Date End Date Shruti Campos MD [address] [place] [address] PCP - General Internal Medicine 05/11/23
--- OUTSIDE RECORDS SUMMARY | 2024-06-13 15:22 | XMS_ITS | Encounter Summary ---
Author Organization [employer] Address [address] [place] [address] [address]t [place] [address] Care Team Providers Care Rural Health Consultant Name Role Phone Shruti Campos MD Primary Care Pro vider Reason for Visit * Reason Onset Date Comments Med Refill 02/18/2024 Encounter Details Date Type Department Care Team ([facility] st Contact Info) Description 02/18/2024 Refill [facility] [address] [place] [address] Shruti Campos MD [address] [place] [address] Social History Tobacco Use Types Packs/Day Years [...] Description 07/21/2024 1:00 PM EDT Office Visit [facility] [address] [place] [phone] Shruti Campos MD [address] [place] [phone] documented as of this encounter Visit Diagnoses Not on filedocumented in this encounter Additional Health Concerns Assessment Noted Time PHQ-9 Depression Total Score: 18 024 12:25 PM EST documented as of this encounter Care Teams Rural Health Consultant Relationship Specialty Start Date End Date Shruti Campos MD [address] [place] [address] [phone] PCP - General Internal Medicine 05/11/23 documented as of this encounter
--- OUTSIDE RECORDS SUMMARY | 2024-06-13 15:22 | XMS_ITS | Encounter Summary ---
Author Organization [employer] Address [address] [place] [address] 7t [place] [address] Care Team Providers Care Carpenter Helper Maintenance Name Role Phone Shruti Campos MD Primary Care Pro vider Encounter Details Date Type Department Care Team (Late st Contact Info) Description 06/13/2024 Orders Only GENERIC EXTERNAL DATA [...] as of this encounter Miscellaneous Notes * Result Encounter Note - Shruti Handy MD - 06/13/2024 1:55 PM EDT On AC-Goal 2-3 -Pt follows at coumadin clinic at [facility] [place] [place] documented in this encounter Plan of Treatment Upcoming Encounters Date Type Department Care Team (Late st Contact Info) Description 07/21/2024 1:00 PM EDT Office Visit [facility] [address] [place] [address] [phone] Shruti Campos MD [address] [place], [place] [phone] documented as of this encounter Procedures Procedure Name Priority Date/Time Associated Diagnosis Comments PROTHROMBIN TIME WHOLE BLD POC Routine 06/13/2024 1:52 PM EDT ~PT, ~INR - ANTI COAG CLINIC Routine 06/13/2024 1:52 PM EDT documented in this encounter Results * (ABNORMAL) PROTHROMBIN TIME WHOLE BLD POC (06/13/2024 1:52 PM EDT) Protime 29.1(H) 11.1 - 13.5 sec [facility] 06/13/2024 1:52 PM EDT 06/13/2024 1:54 PM EDT us Generic External Data Provider LAB BLOOD ORDERAB LES Final Result [facility] [address] [place] [address] [phone] * (ABNORMAL) ~PT, ~INR - ANTI COAG CLINIC (06/13/2024 1:52 PM EDT) Prothrombin Time INR 2.4(H) 0.9 - 1.1 [facility] Comment:METER #: [id number] TERNATIONAL NORMALIZED RATIO (INR) REFERENCE RANGES Reference [...] 1:52 PM EDT 06/13/2024 1:54 PM EDT us Generic External Data Provider LAB BLOOD ORDERAB LES Final Result [facility] [address] [place] [address] [phone] documented in this encounter Visit Diagnoses Not on filedocumented in this encounter Additional Health Concerns Assessment Noted Time PHQ-9 Depression Total Score: 18 024 12:25 PM EST documented as of this encounter Care Teams Carpenter Helper Maintenance Relationship Specialty Start Date End Date Shruti Campos MD [address] [place] [address] PCP - General Internal Medicine 05/11/23 documented as of this encounter
--- OUTSIDE RECORDS SUMMARY | 2024-06-13 15:22 | XMS_ITS | Referral Summary ---
Author Organization [facility] Address [address] [place] [address] Care Team Providers Care Day Camp Unit Leader Name Role Phone Unavailable Primary Care Provider Unavailabl e Encounters Date Type Department Care Team Description 06/12/2024 Refill [facility] 4th floor Cardiology Medicine [address] [place] [address] Silk Examiner: Carmen Smith DO 03/25/[address] floor Cardiology Medicine [address] [place] [address] Silk Examiner: Carmen Smith DO from Last 3 Months [...] pain syndrome 01/20/2019 Episodic mood disorder 05/15/2018 manager long term care (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 [...] absorb on its own. Follow up with ENDOSCOPE TECHNICIAN in 2-3 weeks to discuss management of [...] scheduled for 05/01 at 11:15 AM at [facility] Essential hypertension 04/23/2017 Assessment & Plan (07/15/2017 [...] asymptomatic. Recommend follow up with Dr. Liriano -ENDOSCOPE TECHNICIAN in 2-3 weeks after discharge. Patient to [...] PRN for SOB - Supplemental O2 by NE for O2 sats <92 - Dextromorphan PRN [...] Not on file Procedures * Due to [place] state law, this organization might not be sharing negative HIV tests. Procedure Name Priority Date/Time Associated Diagnosis Comments POCT HEMOGLOBIN A1C, CMG, NON-INTERFACED Routine 06/05/2022 11:58 AM EDT Type 2 diabetes mellitus with other specified complication, unspecified whether intermediate frame tender insulin use BASIC METABOLIC PANEL STAT 06/02/2022 12:15 PM EDT [facility] P[facility] W/HPV, MRNA E6/E7, REFLEX 16/18/45 Routine 08/08/2017 11:00 AM EDT Screening for malignant neoplasm of cervix Screening for human papillomavirus HEPATITIS C ANTIBODY, CONVERSION Routine 09/16/2010 12:21 PM EDT from Last 3 Months or Most Recently Relevant to Health Maintenance Results * Due to [place] state law, this organization might not be [...] - 99 mg/dL 06/02/2022 1:07 PM EDT [facility] Calcium 9.6 8.5 - 10.1 mg/dL 06/02/2022 1:07 PM EDT [facility] Anion Gap 2(L) 5 - 15 06/02/2022 1:07 PM EDT [facility] eGFR 74(L) >=90 mL/min/1. 73m2 06/02/2022 1:07 PM EDT [facility] Comment: Estimated Glomerular Filtration Rate (GFR) [...] Vazquez MD LAB BLOOD ORDERABLES Final Result [facility] [address] [place] [address], * (ABNORMAL) [facility] Pap w/HPV, mRNA E6/E7, Reflex 16/18/45 (08/08/2017 11:00 AM EDT) [facility] TIS, mRNA E6/E7 Jessica See Below(A) [facility] Comment: TIS,mRNA E6/E7 JESSICA ?? CLINICAL INFORMATION: ? None given ?? LMP: ? 18 ?? PREV. PAP: ? 2010 PAP LGSIL ?? PREV. BX: ? NONE GIVEN ?? SOURCE: ? Cervix, Endocervix ?? STATEMENT OF ADEQUACY: ? Satisfactory for evaluation. ? Endocervical/transformation zone component ? present. ?? GENERAL CATEGORIZATION: ? EPITHELIAL CELL ABNORMALITY ?? INTERPRETATION/RESULT: ? Low Grade Squamous Intraepithelial Lesion (LSIL) ?? COMMENT: ? This Pap test has been evaluated with computer ? assisted technology. ?? MATHEMATICAL STATISTICIAN: ? MPG, CT(ASCP) ? CT screening location: [facility] ? [address] [place] [address] ? [place], [place] ??[phone] ?? PATHOLOGIST: ? Maxwell Oreilly M.D. Direct , ? Board Certified in Anatomic and Clinical ? Pathology and Cytopathology ? (electronic signature) ? Consulting Pathologist ? [facility] ? [address] ? [place] [address] ? [phone] ?? HPV mRNA E6/E7 ? Not Detected ? REFERENCE RANGE: Not Detected ? This test was performed using the APTIMA HPV Assay (Compare And Share.). ? This assay detects E6/E7 viral messenger [...] ORDER STELLA Final Result [facility] [address]rd [address], [place] [address], [place] [phone] [facility] [address], [place] [address], [place] [phone] * HEPATITIS C ANTIBODY, CONVERSION (09/16/2010 12:21 PM EDT) Hepatitis C Antibody <0.02 <1.00 IV [facility] Comment: Negative Not infected with HCV, unless recent infection is suspected or other evidence exists to indicate HCV infection. 09/16/2010 12:2 1 PM EDT 09/16/2010 1:08 PM EDT Paula Valdez MD LAB HISTORICAL RESULTS F inal Result [facility] [address] [place] [address], from Last 3 Months or Most Recently Relevant to Health Maintenance Insurance [facility] [place] Advance Directives Documents on File Type Date Recorded Patient Dispatch Machine Runner Expl 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 Communication Shruti Nevarez Mother Next of Kin Claytonpasquale Cooper Significant Other Next of Kin
--- OUTSIDE RECORDS SUMMARY | 2024-06-13 15:22 | XMS_ITS | Patient Health Record ---
Author Organization [facility] Address [address] [place] [address] Care Team Providers Care Pastrycook Name Role Phone Ellis Lee Primary Care Provider UnavailTom Salguero Unavailable [phone] ALLERGIES Allergen (clinical drug ingredient) Drug/Non Drug [...] Problem Paroxysmal atrial fibrillation (I48.0) Active confirmed 042701487 Problem Mild intermittent asthma, uncomplicated (J45.20) Active confirmed 2 Mild intermittent asthma (162833397) Problem Obstructive sleep apnea (adult) (pediatric) (G47.33) Active confirmed Obstructive sleep apnea syndrome (disorder) (02036790) Problem Morbid (severe) obesity due to excess calories (E66.01) Active confirmed Morbid obesity (disorder) (533919884) Problem Adjustment disorder with anxiety (F43.22) Active confirmed Adjustment disorder with anxiety (44642685) Problem Anxiety (F41.9) Active confirmed 518927 02 Problem Essential hypertension (I10) Active confirmed Essential hypertension (38363944) Problem Accelerated hypertension (I10) Active confirmed 2 24200811 Problem ANGELA (obstructive sleep apnea) (G47.33) Active confirmed Obstructive sleep apnea syndrome (32702374) Problem Atrial fibrillation, unspecified type (I48.91) Active confirmed Atrial fibrillation (85662768) PLAN OF TREATMENT Pending Test Test Name [...] HEALTH MEDICAID [address] [place] [id number] Bria Morrison Self - patient is the insured 3 MEDICAL (GENERAL) HISTORY Medical History History ICD Code preserved LV function with EF 65-70% by echo Apr paroxysmal atrial fibrillati on, rate conrol/AC, [id number] = 2, HTN, female moderate to severe concentric LVH by ech o Apr resistant hypertension asthma obstructive sleep apnea obesity anxiety ruptured ovarian cyst/hemato ma peritoneum requiring reversal of oral anticoagulation July 2017
--- OUTSIDE RECORDS SUMMARY | 2024-06-13 15:22 | XMS_ITS | Encounter Summary ---
Author Organization [employer] Address [address] [facility] 7t [place] [address] Care Team Providers Care Site Engineer Name Role Phone Shruti Campos MD Primary Care Pro vider Reason for Visit * Reason Comments Med Refill Encounter Details Date Type Department Care Team ([facility] st Contact Info) Description 06/12/2024 Refill [facility] [address] [place], [place] [phone] Ryanne Vega MD 230 [place], [place] [phone] Social History Tobacco Use Types Packs/Day Years [...] t he electric, gas, oil or water [employer] threatened to shut off services in your [...] Description 07/21/2024 1:00 PM EDT Office Visit [facility] [address] [place] [address] [phone] Shruti Campos MD [address] [place] [address] [phone] documented as of this encounter Visit Diagnoses Not on filedocumented in this encounter Additional Health Concerns Assessment Noted Time PHQ-9 Depression Total Score: 18 024 12:25 PM EST documented as of this encounter Care Teams Site Engineer Relationship Specialty Start Date End Date Shruti Campos MD [address] [place] [phone] PCP - General Internal Medicine 05/11/23 documented as of this encounter
--- OUTSIDE RECORDS SUMMARY | 2024-06-13 15:22 | XMS_ITS | Encounter Summary ---
Author Organization [employer] Address [address] [place] [address] 7[place] [address] Care Team Providers Care Rouge Miller Name Role Phone Shruti Campos MD Primary Care Pro vider Reason for Visit * Reason Onset Date Comments Nurse Triage 04/01/2024 Encounter Details Date Type Department Care Team ([facility] st Contact Info) Description 04/01/2024 Telephone [facility] [address] [place] [address] [phone] Shruti Campos MD 230 [place] [address] Nurse Triage Social History Tobacco Use Types [...] 1.5mg as prescribed at that time (only health information technologist found on chart). Pt reports thatwas an [...] to touch The caller accepted this outcome. [phone] documented in this encounter Plan of Treatment Upcoming Encounters Date Type Department Care Team (Late st Contact Info) Description 07/21/2024 1:00 PM EDT Office Visit [facility] [address] [place] [address] [phone] Shruti Campos MD [address] [place] [phone] documented as of this encounter Visit Diagnoses Not on filedocumented in this encounter Additional Health Concerns Assessment Noted Time PHQ-9 Depression Total Score: 18 024 12:25 PM EST documented as of this encounter Care Teams Rouge Miller Relationship Specialty Start Date End Date Shruti Campos MD [address] [place] [address] [phone] PCP - General Internal Medicine 05/11/23 documented as of this encounter
--- OUTSIDE RECORDS SUMMARY | 2024-06-13 15:22 | XMS_ITS | Clinical Summary ---
Author Organization [facility] Address [address] [place] [address] Care Team Providers Care Etl Analyst Developer Name Role Phone Lisette Murillo Shelia Primary Care Provider [phone] Allergies No known active allergies Medications Oxycodone-Acetamin [...] MG Tab 1 TABLET twice daily Active Vnpskdxyew-AXAB-Ty ffeine (FIORICET) 50-300-40 MG Cap 1 OR [...] complete this topic Procedures * Due to [place] law, this organization might not be sharing [...] to Health Maintenance Results * Due to [place] law, this organization might not be sharing negative HIV tests. * (ABNORMAL) [facility] FPGS,HPV,CT/GC PANEL (08/24/2014 4:01 PM EDT) Clinical information NONE GIVEN [facility] Comment:{CLINICAL INFORMATIO N: {[id number]) Date last menstrual period [id number] [facility] Comment:{LMP: {[id number]) Date of previous PAP smear NONE GIVEN [facility] Comment:{PREV. PAP: {[id number]) Date of previous biopsy NONE GIVEN [facility] Comment:{PREV. BX: {[id number]) Specimen source (Cvx/Vag) Cervix, Endocervix [facility] Comment:{SOURCE: {[id number]) Statement of Adequacy (Cvx/Vag) Satisfactory for evaluation. Endocervical/hearn sformation zone component absent. [facility] Comment:{STATEMENT OF ADEQUA CY: {[id number]) General categories (Cvx/Vag) EPITHELIAL CELL ABNORMALITY(A) [facility] Comment:{GENERAL CATEGORIZAT ION: {[id number]) Cytology, Pap Smear Low Grade Squamous Intraepithelial Lesion (LSIL)(A) [facility] Comment:{INTERPRETATION/RESU LT: {[id number]) Cytology study comment (Cvx/Vag) This Pap test has been evaluated with computer assisted technology. [facility] Comment:{COMMENT: {[id number]) Can Sorter (Cvx/Vag) MPG, CT(ASCP) [facility] Comment:{MOLECULAR MODELER: { [id number]) Pathologist (Cvx/Vag) Lorena Mcgrath M.D., Board Certified in Anatomic and Clinical Pathology (electronic signature) Consulting Pathologist [facility] [address] [place] [address] [facility] Comment:{PATHOLOGIST: {[id number]) HPV MRNA E6/E7 Detected(A) Not Detected [facility] Comment: {HPV mRNA E6/E7, [facility]REPATH VIAL {[id number]) This test was performed using the APTIMA HPV Assay ([employer] This assay detects E6/E7 viral messenger RNA (mRNA) from 14 high-risk HPV types (16,18,31,33,35,39,45,51,52,56,58,59,66,68). The analytical performance characteristics of this assay, when used to test SurePath specimens, have been determined by [employer] Chlamydia trachomatis rRNA NOT DETECTED NOT DETECTED [facility] Comment:{CHLAMYDIA TRACHOMAT IS RNA, TMA {[id number]) Neisseria Gonorrhoeae rRNA NOT DETECTED NOT DETECTED [facility] Comment:{NEISSERIA GONORRHOE AE RNA, TMA {[id number]) COMMENT SEE NOTE [facility] Comment: {COMMENT {[id number]) This test was performed using the APTIMA COMBO2 Assay ([employer] The analytical performance characteristics of this assay, when used to test SurePath specimens have been determined by [employer]. 08/24/2014 4:01 PM EDT 08/25/2014 1:12 AM EDT Narrative Resulting Agency Comment [id number] Estephania Skelton [facility] Aissatou l Result Performing Organization Address [facility] Co de Phone Number [facility] [address] [place] [address] * HEPATITIS C ANTIBODY, SERUM (08/24/2014 1:40 PM EDT) Hepatitis C virus Ab NON-REACTI VE NON-REACT LEIGH ANN [facility] Comment:{HEPATITIS C ANTIBOD Y {[id number]) Hepatitis C virus Ab Signal/Cutoff 0.07 <1.00 [facility] Comment:{SIGNAL TO CUT-OFF { [id number]) 08/24/2014 1:40 PM EDT 08/25/2014 12:58 AM EDT Narrative Resulting Agency Comment [id number] Estephania Skelton [facility] Final Res ult Performing Organization Address [facility] de Phone Number [facility] [address] [place] [address] from Last 3 Months or Most Recently Relevant to Health Maintenance Insurance MEDICAID * Guarantor: [id number] [employer] Account Type Relation to Patient Date of Phone Billing Address Worker's Comp [address] [place] [address] WORKERS COMPENSATION Care Teams Etl Analyst Developer Relationship Specialty Start Date End Date Lisette Murillo [address] [address] PCP - General Internal Medicine 11/20/14
--- OUTSIDE RECORDS SUMMARY | 2024-06-13 15:22 | XMS_ITS | Encounter Summary ---
Author Organization [employer] Address [address] [facility] 7t [place] [address] Care Team Providers Care Private Equity Analyst Name Role Phone Shruti Campos MD Primary Care Pro vider Reason for Visit * Reason Comments Med Refill Encounter Details Date Type Department Care Team ([facility] st Contact Info) Description 01/14/2024 Refill [facility] 230 [place], [place] [phone] Shruti Campos MD 230 [place] [address] Social History Tobacco Use Types Packs/Day Years [...] PM EDT Office Visit [facility] [address] [place] [phone] Shruti Campos MD [address] [place] [address] 8[address] documented as of this encounter Visit Diagnoses Not on filedocumented in this encounter Additional Health Concerns Assessment Noted Time PHQ-9 Depression Total Score: 18 024 12:25 PM EST documented as of this encounter Care Teams Private Equity Analyst Relationship Specialty Start Date End Date Shruti Campos MD [address] [place] [address] PCP - General Internal Medicine 05/11/23 documented as of this encounter
--- OUTSIDE RECORDS SUMMARY | 2024-06-13 15:22 | XMS_ITS | Encounter Summary ---
Author Organization [employer] Address [address] [facility] 7t [place] [address] Care Team Providers Care Promotions Team Leader Name Role Phone Shruti Campos MD Primary Care Pro vider Reason for Visit * Reason Comments Med Change Request Encounter Details Date Type Department Care Team ([facility] Contact Info) Description 02/12/2024 Refill [facility] 230 [place] [address] Shruti Campos MD 230 [place] [address] Social History Tobacco Use Types Packs/Day Years [...] Description 07/21/2024 1:00 PM EDT Office Visit [facility] [address] [place] [address] Shruti Campos MD [address] [place] [address] 26[address] documented as of this encounter Visit Diagnoses Not on filedocumented in this encounter Additional Health Concerns Assessment Noted Time PHQ-9 Depression Total Score: 18 024 12:25 PM EST documented as of this encounter Care Teams Promotions Team Leader Relationship Specialty Start Date End Date Shruti Campos MD [address] [place] [phone] PCP - General Internal Medicine 05/11/23 documented as of this encounter
--- OUTSIDE RECORDS SUMMARY | 2024-06-13 15:22 | XMS_ITS | Encounter Summary ---
Author Organization [employer] Address [address] [place] [address] 7[place] [address] Care Team Providers Care Soda Dry House Operator Name Role Phone Shruti Campos MD Primary Care Pro vider Reason for Visit * Reason Onset Date Comments Durable Medical Equipment 10/09/2023 Encounter Details Date Type Department Care Team ([facility] st Contact Info) Description 10/09/2023 Telephone [facility] 230 [place], [place] [phone] Shruti Campos MD 230 [place] [address] Durable Medical Equipment Social History Tobacco Use [...] Description 07/21/2024 1:00 PM EDT Office Visit [facility] [address] [place] [phone] Shruti Campos MD 230 [place] [address] documented as of this encounter Visit Diagnoses Not on filedocumented in this encounter Additional Health Concerns Assessment Noted Time PHQ-9 Depression Total Score: 18 024 12:25 PM EST documented as of this encounter Care Teams Soda Dry House Operator Relationship Specialty Start Date End Date Shruti Campos MD 230 [place] [address] PCP - General Internal Medicine 05/11/23 documented as of this encounter
== END 2024-06-13 14:02 | disposition home or self-care (01) ==
LOC: HO.ACS 13:33
PROVIDERS: PCP Student in an Organized Health Care Education/Training Program; Visit Provider Internal Medicine Medical Oncology
DX: Z79.01 Long term (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 (principal)

== ENCOUNTER → 2024-06-13 13:33 | Outpatient (BNVA) | payer MEDICAID, SELFPAY | PROVIDERS: PCP Student in an Organized Health Care Education/Training Program; Visit Provider Internal Medicine Medical Oncology | DX: I48.0 Paroxysmal atrial fibrillation (principal); Z51.81 Encounter for therapeutic drug level monitoring; Z79.01 Long term (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 | CPT/HCPCS: 85610; 99211 ==

== ENCOUNTER 2024-07-23 13:03 | Outpatient (AMB) | payer MEDICAID, SELFPAY ==
--- NOTE | 2024-07-23 13:18 | MHC.OFFVISCO ---
Intake Intake Visit Reasons: Anticoagulation Allergies lisinopril Allergy (Mild, Verified 07/23/24 13:07) Cough Medication List - Last Reconciled 07/23/24 by Ramona Jones RN albuterol sulfate 90 mcg/actuation (Ventolin HFA) 2 puffs inhalation Q6H PRN atorvastatin 10 mg PO DAILY bisacodyl 5 mg PO DAILY PRN cholecalciferol (vitamin D3) 50 mcg PO DAILY clonidine HCl 0.2 mg PO BID diltiazem HCl CD 120 mg PO DAILY docusate sodium 100 mg PO BID PRN ferrous gluconate 324 mg PO 3XW linaclotide (Linzess) 145 mcg PO QAM loratadine 10 mg PO DAILY lorazepam 0.5 mg PO QAM PRN losartan 25 mg PO DAILY metoprolol succinate ER 25 mg PO BID omeprazole 20 mg PO DAILY polyethylene glycol 3350 (Gavilax) 17 grams PO DAILY semaglutide (Ozempic) 1 mg subcut QWEEK warfarin 2 mg See Protocol PO DIRECTED Nursing Note INR 1.7-?? out of therapeutic range of 2-3 Medications and supplements reviewed Patient status: pt denies missed dose Medications or supplements: no changes , may switch to mounjaro- aware may alter inr Diet: same, ate pickles Denies any signs and symptoms of bleeding or clotting or unusual bruising Bleeding, bruising, clotting discussed Nutritional guidance given: no greens for 2 days, eat reds to raise Dose: 4mg today, then cont 2mg x7 F/U INR Date : 2 weeks? Patient verbalizing understanding of instructions given. Anti-Coag Initial Assessment Social Hx Patient Tobacco Use Status: Former Tobacco user Smoking packs per day: 0.5 alcohol intake: never Cardiovascular Hx: HTN and Arrhythmias Lung Disease HX: Asthma Endocrine Hx: Diabetes Musculoskeletal Hx: Osteoporosis Blood Disorder Hx: Anemia and Hyperlipidemia Hx: Kidney Disease Neurological Hx: Migraines/Headaches Cancer HX: No Psych. Illness/Depression: Yes Coding Level of Care Code Est Patient Level 1 Diagnoses Current use of anticoagulant therapy Z79.01 Assessment & Plan Assessment & Plan (1) Current use of anticoagulant therapy: Code(s): Z79.01 - MCFP (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 Category: Medical
[2024-07-23 13:19] LABS: ~PT, ~INR - Anti Coag Clinic 1.7 (0.9-1.1)
--- OUTSIDE RECORDS SUMMARY | 2024-07-23 13:19 | XMS_ITS | Encounter Summary ---
Author Organization [employer] Address [address] [facility] 7t [place] [address] Care Team Providers Care Industrial Gas Service Helper Name Role Phone Shruti Campos MD Primary Care Pro vider Reason for Visit * Reason Comments Med Refill Encounter Details Date Type Department Care Team ([facility] Contact Info) Description 12/16/2023 Refill [facility] 230 [place], [place] [phone] Shruti Campos MD 230 [place] [address] Social History Tobacco Use Types Packs/Day Years [...] Care Team (Late st Contact Info) Description 09/19/2024 1:00 PM EDT Office Visit [facility] [address] [place] [address] Shruti Campos MD [address] [place] [phone] documented as of this encounter Visit Diagnoses Not on filedocumented in this encounter Additional Health Concerns Assessment Noted Time PHQ-9 Depression Total Score: 18 024 12:25 PM EST documented as of this encounter Care Teams Industrial Gas Service Helper Relationship Specialty Start Date End Date Shruti Campos MD [address] [place] [address] PCP - General Internal Medicine 05/11/23 documented as of this encounter
--- OUTSIDE RECORDS SUMMARY | 2024-07-23 13:19 | XMS_ITS | Encounter Summary ---
Author Organization [employer] Address [address] [facility] 7t [place] [address] Care Team Providers Care Newspaper Distributor Supervisor Name Role Phone Shruti Campos MD Primary Care Pro vider Reason for Visit * Reason Comments Med Change Request Encounter Details Date Type Department Care Team ([facility] Contact Info) Description 02/12/2024 Refill [facility] 230 [place] [address] Shruti Campos MD 230 [place] [address] Social History Tobacco Use Types Packs/Day Years [...] Description 09/19/2024 1:00 PM EDT Office Visit [facility] [address] [place] [address] Shruti Campos MD [address] [place] [phone] documented as of this encounter Visit Diagnoses Not on filedocumented in this encounter Additional Health Concerns Assessment Noted Time PHQ-9 Depression Total Score: 18 024 12:25 PM EST documented as of this encounter Care Teams Newspaper Distributor Supervisor Relationship Specialty Start Date End Date Shruti Campos MD [address] [place] [phone] PCP - General Internal Medicine 05/11/23 documented as of this encounter
--- OUTSIDE RECORDS SUMMARY | 2024-07-23 13:19 | XMS_ITS | Encounter Summary ---
Author Organization [employer] Address [address] [facility] 7t [place] [address] Care Team Providers Care Spar Cap Beveler Name Role Phone Shruti Campos MD Primary Care Pro vider Reason for Visit * Reason Comments Med Refill Encounter Details Date Type Department Care Team ([facility] st Contact Info) Description 01/14/2024 Refill [facility] 230 [place], [place] [phone] Shruti Campos MD 230 [place] [address] Social History Tobacco Use Types Packs/Day Years [...] Description 09/19/2024 1:00 PM EDT Office Visit [facility] [address] [place] [phone] Shruti Campos MD [address] [place] [address] 199[address] documented as of this encounter Visit Diagnoses Not on filedocumented in this encounter Additional Health Concerns Assessment Noted Time PHQ-9 Depression Total Score: 18 024 12:25 PM EST documented as of this encounter Care Teams Spar Cap Beveler Relationship Specialty Start Date End Date Shruti Campos MD [address] [place] [phone] PCP - General Internal Medicine 05/11/23 documented as of this encounter
--- OUTSIDE RECORDS SUMMARY | 2024-07-23 13:20 | XMS_ITS | Encounter Summary ---
Author Organization [employer] Address [address] [place] [address] 7t [place] [address] Care Team Providers Care Laboratory Technology Teacher Name Role Phone Shruti Campos MD Primary Care Pro vider Reason for Visit * Reason Onset Date Comments Med Refill 02/18/2024 Encounter Details Date Type Department Care Team ([facility] st Contact Info) Description 02/18/2024 Refill [facility] 230 [place] [address] Shruti Campos MD 230 [place] [address] Social History Tobacco Use Types Packs/Day Years [...] Description 09/19/2024 1:00 PM EDT Office Visit [facility] [address] [place] [address] Shruti Campos MD [address] [place] [address] 19[address] documented as of this encounter Visit Diagnoses Not on filedocumented in this encounter Additional Health Concerns Assessment Noted Time PHQ-9 Depression Total Score: 18 024 12:25 PM EST documented as of this encounter Care Teams Laboratory Technology Teacher Relationship Specialty Start Date End Date Shruti Campos MD [address] [place] [address] [phone] PCP - General Internal Medicine 05/11/23 documented as of this encounter
--- OUTSIDE RECORDS SUMMARY | 2024-07-23 13:20 | XMS_ITS | Encounter Summary ---
Author Organization [employer] Address [address] [facility] 7t [place] [address] Care Team Providers Care Command Post Superintendent Name Role Phone Shruti Campos MD Primary Care Pro vider Encounter Details Date Type Department Care Team (Latest Contact Info) Description 07/21/2024 Travel Social History Tobacco Use Types Packs/Day [...] Answer Date Recorded Patient Health Questionnaire-9 Score 0 07/21/2024 Patient Health Questionnaire-9 Score 0 07/21/2024 Last PHQ-9: Questionnaire Data Not on file 0 07/21/2024 Housing Stability Answer Date Recorded What is your housing situation today? I have mohanhoda melo 07/15/[address] you li ve. Do you have problems with any of the following? Pests such as bugs, ants, or mice 07/15/2024 Food Insecurity Answer Date Recorded Within the past 12 months, y ou worried that your food would run out before you got money to buy more: Never True 07/15/2024 Within the past 12 months,th e food you bought just didn't last and you didn't have enough money to get more: Never True 08/2024 Transportation Answer Date Recorded In the past 12 months, has l ack of transportation kept you from medical appts, meetings, work or from getting things needed for daily living? No 07/15/2024 Utilities Answer Date Recorded In the past 12 months, has t he electric, gas, oil or water company threatened to shut off services in your home? No 07/15/2024 Depression Answer Date Recorded Patient Health Questionnaire-2 Score 0 07/21/2024 Internet Access Answer Date Recorded Internet Access [...] AM EST documented as of this encounter Functional Status * Over the past 2 weeks, how often have you been bothered by any of the following problems? Question Answer Date of Assessment Author Patient Health Questionnaire -2 Score 0 07/21/2024 1:07 PM EDT Rosalind Miller MA * Little interest or pleasure in doing things Answer Date of Assessment Author Not at all 07/21/2024 1:07 PM DODIET Azalia Miller MA * Feeling down, depressed, or hopeless Answer Date of Assessment Author Not at all 07/21/2024 1:07 PM DODIET Azalia Miller MA * Trouble falling or staying asleep, or sleeping too much Answer Date of Assessment Author Not at all 07/21/2024 1:07 PM Azalia Odonnell MA * Feeling tired or having little energy Answer Date of Assessment Author Not at all 07/21/2024 1:07 PM Azalia Odonnell MA * Poor appetite or overeating Answer Date of Assessment Author Not at all 07/21/2024 1:07 PM Azalia Odonnell MA * Feeling bad about yourself - or that you are a failure or have let yourself or your family down Answer Date of Assessment Author Not at all 07/21/2024 1:07 PM Azalia Odonnell MA * Trouble concentrating on things, such as reading the newspaper or watching television Answer Date of Assessment Author Not at all 07/21/2024 1:07 PM Azalia Odonnell MA * Moving or speaking so slowly that other people could have noticed? Or the opposite - being so fidgety or restless that you have been moving around a lot more than usual. Answer Date of Assessment Author Not at all 07/21/2024 1:07 PM EDT Azalia Miller MA * Thoughts that you would be better off or hurting yourself in some way Answer Date of Assessment Author Not at all 07/21/2024 1:07 PM EDT Azalia Miller MA * Patient Health Questionnaire-9 Score Answer Date of Assessment Author 0 07/21/2024 1:07 PM EDT Azalia Miller MA documented as of this encounter Plan of Treatment Upcoming Encounters Date Type Department Care Team (Late st Contact Info) Description 09/19/2024 1:00 PM EDT Office Visit [facility] [address] [place] [phone] Shruti Campos MD [address] [place] [address] documented as of this encounter Visit Diagnoses Not on filedocumented in this encounter Additional Health Concerns Assessment Noted Time PHQ-9 Depression Total Score: 0 07/22/19 25 1:07 PM EDT documented as of this encounter Care Teams Command Post Superintendent Relationship Specialty Start Date End Date Shruti Campos MD [address] [place] [address] PCP - General Internal Medicine 05/11/23 documented as of this encounter
--- OUTSIDE RECORDS SUMMARY | 2024-07-23 13:20 | XMS_ITS | Encounter Summary ---
Author Organization [employer] Address [address] [place] [address] 7t [place] [address] Care Team Providers Care Pan Helper Name Role Phone Shruti Campos MD Primary Care Pro vider Reason for Visit * Reason Onset Date Comments Med Refill 06/23/2024 Encounter Details Date Type Department Care Team ([facility] st Contact Info) Description 06/23/2024 Refill [facility] 230 [place] [address] Ryanne Vega MD 230 [place] [address] Social History Tobacco Use Types Packs/Day Years [...] Upcoming Encounters Date Type Department Care Team ([facility] st Contact Info) Description 09/19/2024 1:00 PM EDT Office Visit [facility] [address] [place] [address] [phone] Shruti Campos MD [address] [place] [phone] documented as of this encounter Visit Diagnoses Not on filedocumented in this encounter Additional Health Concerns Assessment Noted Time PHQ-9 Depression Total Score: 18 024 12:25 PM EST documented as of this encounter Care Teams Pan Helper Relationship Specialty Start Date End Date Shruti Campos MD [address] [place] [address] [phone] PCP - General Internal Medicine 05/11/23 documented as of this encounter
--- OUTSIDE RECORDS SUMMARY | 2024-07-23 13:20 | XMS_ITS | Clinical Summary ---
Author Organization [facility] Address [address] [place] [address] Care Team Providers Care Associate Broker Name Role Phone Lisette Murillo Shelia Primary Care Provider [phone] Allergies No known active allergies Medications Oxycodone-Acetamin [...] MG Tab 1 TABLET twice daily Active Erbbanihlt-DUSY-Yk ffeine (FIORICET) 50-300-40 MG Cap 1 OR [...] complete this topic Procedures * Due to [place] law, this organization might not be sharing [...] Health Maintenance Results * Due to [place] law, this organization might not be sharing negative HIV tests. * (ABNORMAL) [facility] FPGS,HPV,CT/GC PANEL (08/24/2014 4:01 PM EDT) Clinical information NONE GIVEN [facility] Comment:{CLINICAL INFORMATIO N: {[id number]) Date last menstrual period [id number] [facility] Comment:{LMP: {[id number]) Date of previous PAP smear NONE GIVEN [facility] Comment:{PREV. PAP: {[id number]) Date of previous biopsy NONE GIVEN [facility] Comment:{PREV. BX: {[id number]) Specimen source (Cvx/Vag) Cervix, Endocervix [facility] Comment:{SOURCE: {[id number]) Statement of Adequacy (Cvx/Vag) Satisfactory for evaluation. Endocervical/hearn sformation zone component absent. [facility] Comment:{STATEMENT OF ADEQUA CY: {[id number]) General categories (Cvx/Vag) EPITHELIAL CELL ABNORMALITY(A) [facility] Comment:{GENERAL CATEGORIZAT ION: {[id number]) Cytology, Pap Smear Low Grade Squamous Intraepithelial Lesion (LSIL)(A) [facility] Comment:{INTERPRETATION/RESU LT: {[id number]) Cytology study comment (Cvx/Vag) This Pap test has been evaluated with computer assisted technology. [facility] Comment:{COMMENT: {[id number]) Cable Swager (Cvx/Vag) MPG, CT(ASCP) [facility] Comment:{DOG DAY CARE ATTENDANT: { [id number]) Pathologist (Cvx/Vag) Lorena Mcgrath M.D., Board Certified in Anatomic and Clinical Pathology (electronic signature) Consulting Pathologist [facility] [address] [place] [address] [facility] Comment:{PATHOLOGIST: {[id number]) HPV MRNA E6/E7 Detected(A) Not Detected [facility] Comment: {HPV mRNA E6/E7, SUREPATH VIAL {[id number]) This test was performed using the APTIMA HPV Assay ([employer] This assay detects E6/E7 viral messenger RNA (mRNA) from 14 high-risk HPV types (16,18,31,33,35,39,45,51,52,56,58,59,66,68). The analytical performance characteristics of this assay, when used to test SurePath specimens, have been determined by [employer] Chlamydia trachomatis rRNA NOT DETECTED NOT DETECTED [facility] Comment:{CHLAMYDIA TRACHOMAT IS RNA, TMA {[id number]) Neisseria Gonorrhoeae rRNA NOT DETECTED NOT DETECTED [facility] Comment:{NEISSERIA GONORRHOE AE RNA, TMA {[id number]) COMMENT SEE NOTE [facility] Comment: {COMMENT {[id number]) This test was performed using the APTIMA COMBO2 Assay ([employer] The analytical performance characteristics of this assay, when used to test SurePath specimens have been determined by [employer]. 08/24/2014 4:01 PM EDT 08/25/2014 1:12 AM EDT Narrative Resulting Agency Comment [id number] Estephania Skelton [facility] Aissatou l Result Performing Organization Address [facility] Co de Phone Number [facility] [address] [place] [address] * HEPATITIS C ANTIBODY, SERUM (08/24/2014 1:40 PM EDT) Hepatitis C virus Ab NON-REACTI VE NON-REACT LEIGH ANN [facility] Comment:{HEPATITIS C ANTIBOD Y {[id number]) Hepatitis C virus Ab Signal/Cutoff 0.07 <1.00 [facility] Comment:{SIGNAL TO CUT-OFF { [id number]) 08/24/2014 1:40 PM EDT 08/25/2014 12:58 AM EDT Narrative Resulting Agency Comment [id number] Estephania Skelton [facility] Final Res ult Performing Organization Address [facility] de Phone Number [facility] [address] [place] [address] from Last 3 Months or Most Recently Relevant to Health Maintenance Insurance MEDICAID * Guarantor: [id number] [employer] Account Type Relation to Patient Date of Phone Billing Address Worker's Comp [address] [place] [address] WORKERS COMPENSATION Care Teams Associate Broker Relationship Specialty Start Date End Date Lisette Murillo [address] [address] PCP - General Internal Medicine 11/20/14
--- OUTSIDE RECORDS SUMMARY | 2024-07-23 13:20 | XMS_ITS | Encounter Summary ---
Author Organization [facility] Address [address] [place] [address] Care Team Providers Care Dry Can Tender Name Role Phone Paul Mix MD Primary Care Provider [phone] Lisette Murillo Primary Care Provider [phone] Encounter Details Date Type Department Care Team ([facility] st Contact Info) Description 04/30/2013 Orders Only [facility] Orthopedic Surgery [address] [address] Mandeep Kirk MD [address] [place] [address] Social History Tobacco Use Types Packs/Day Years [...] leg documented in this encounter Care Teams Dry Can Tender Relationship Specialty Start Date End Date Paul Mix MD [facility] [address] [place] [address] PCP - General 05/25/09 11/19/14 Lisette Murillo [address] [address] PCP - General Internal Medicine 11/20/14 documented as of this encounter
--- OUTSIDE RECORDS SUMMARY | 2024-07-23 13:20 | XMS_ITS | Encounter Summary ---
Author Organization [employer] [facility] Address [address] [place] [address] 7[address] [place] [address] Care Team Providers Care Swimmer Name Role Phone Shruti Campos MD Primary Care Pro vider Reason for Visit * Reason Onset Date Comments Durable Medical Equipment 10/09/2023 Encounter Details Date Type Department Care Team ([facility] st Contact Info) Description 10/09/2023 Telephone [facility] [address] [place], [place] [phone] Shruti Campos MD [address] [place] [address] Durable Medical Equipment Social History Tobacco Use [...] Description 09/19/2024 1:00 PM EDT Office Visit [facility] [address] [place] [address] Shruti Campos MD [address] [place] [address] documented as of this encounter Visit Diagnoses Not on filedocumented in this encounter Additional Health Concerns Assessment Noted Time PHQ-9 Depression Total Score: 18 024 12:25 PM EST documented as of this encounter Care Teams Swimmer Relationship Specialty Start Date End Date Shruti Campos MD [address] [place] [address] PCP - General Internal Medicine 05/11/23 documented as of this encounter
--- OUTSIDE RECORDS SUMMARY | 2024-07-23 13:20 | XMS_ITS | Encounter Summary ---
Author Organization [employer] Address [address] [place] [address] 7t [place] [address] Care Team Providers Care Power And Recovery Superintendent Name Role Phone Shruti Campos MD Primary Care Pro vider Reason for Visit * Reason Onset Date Comments Med Refill 06/23/2024 Encounter Details Date Type Department Care Team ([facility] st Contact Info) Description 06/23/2024 Refill [facility] [address] [place] [address] Rosana Jaramillo MD [address] [place] [address] Anxiety Social History Tobacco Use Types Packs/Day [...] Description 09/19/2024 1:00 PM EDT Office Visit [facility] [address] [place] [address] Shruti Campos MD [address] [place] [address] documented as of this encounter Visit Diagnoses Diagnosis Anxiety Anxiety state, unspecified documented in this encounter Additional Health Concerns Assessment Noted Time PHQ-9 Depression Total Score: 18 024 12:25 PM EST documented as of this encounter Care Teams Power And Recovery Superintendent Relationship Specialty Start Date End Date Shruti Campos MD [address] [place] [address] PCP - General Internal Medicine 05/11/23 documented as of this encounter
--- OUTSIDE RECORDS SUMMARY | 2024-07-23 13:20 | XMS_ITS | Patient Health Record ---
Author Organization [facility] Address [address] [place] [address] Care Team Providers Care Basin Finish Operator Tig Welder Name Role Phone Ellis Lee Primary Care Provider UnavailTom Salguero Unavailable ALLERGIES Allergen (clinical drug ingredient) Drug/Non [...] Problem Paroxysmal atrial fibrillation (I48.0) Active confirmed [id number] Problem Mild intermittent asthma, uncomplicated (J45.20) Active confirmed 2 Mild intermittent asthma (503393831) Problem Obstructive sleep apnea (adult) (pediatric) (G47.33) Active confirmed Obstructive sleep apnea syndrome (disorder) (42180353) Problem Morbid (severe) obesity due to excess calories (E66.01) Active confirmed Morbid obesity (disorder) (460112253) Problem Adjustment disorder with anxiety (F43.22) Active confirmed Adjustment disorder with anxiety (97323289) Problem Anxiety (F41.9) Active confirmed 017261 02 Problem Essential hypertension (I10) Active confirmed Essential hypertension (54289285) Problem Accelerated hypertension (I10) Active confirmed 2 73687518 Problem ANGELA (obstructive sleep apnea) (G47.33) Active confirmed Obstructive sleep apnea syndrome (91388772) Problem Atrial fibrillation, unspecified type (I48.91) Active confirmed Atrial fibrillation (13792221) PLAN OF TREATMENT Pending Test Test Name [...] HEALTH MEDICAID [address] HU[place] Ledbetter [id number] Bria Morrison Self - patient is the insured 3 MEDICAL (GENERAL) HISTORY Medical History History ICD Code preserved LV function with EF 65-70% by echo Apr paroxysmal atrial fibrillati on, rate conrol/AC, LXY6HR4-DNBr = 2, HTN, female moderate to severe concentric LVH by ech o Apr resistant hypertension asthma obstructive sleep apnea obesity anxiety ruptured ovarian cyst/hemato ma peritoneum requiring reversal of oral anticoagulation July 2017
--- OUTSIDE RECORDS SUMMARY | 2024-07-23 13:20 | XMS_ITS | Encounter Summary ---
Author Organization [employer] Address [address] [place] [address] 7t [place] [address] Care Team Providers Care Wheel Worker Name Role Phone Shruti Campos MD Primary Care Pro vider Reason for Visit * Reason Onset Date Comments Med Refill 06/23/2024 Encounter Details Date Type Department Care Team ([facility] st Contact Info) Description 06/23/2024 Refill [facility] MED[facility] [address] [place] [address] Shruti Campos MD [address] [place] [address] Social History Tobacco Use Types Packs/Day Years [...] Description 09/19/2024 1:00 PM EDT Office Visit [facility] [address] [place] [address] Shruti Campos MD [address] [place] [address] documented as of this encounter Visit Diagnoses Not on filedocumented in this encounter Additional Health Concerns Assessment Noted Time PHQ-9 Depression Total Score: 18 024 12:25 PM EST documented as of this encounter Care Teams Wheel Worker Relationship Specialty Start Date End Date Shruti Campos MD [address] [place] [phone] PCP - General Internal Medicine 05/11/23 documented as of this encounter
--- OUTSIDE RECORDS SUMMARY | 2024-07-23 13:20 | XMS_ITS | Encounter Summary ---
Author Organization [facility] Address [address] [place] [address] Care Team Providers Care Leather Stamper Name Role Phone Paul Mix MD Primary Care Provider [phone] Lisette Murillo Primary Care Provider [phone] Encounter Details Date Type Department Care Team ([facility] st Contact Info) Description 08/24/2014 Orders Only [facility] [address] [place] [phone] Estephania Skelton, [facility] [address] [place] [address] Social History Tobacco Use Types Packs/Day Years [...] of this encounter Procedures * Due to [place] law, this organization might not be sharing [...] in this encounter Results * Due to [place] law, this organization might not be sharing negative HIV tests. * (ABNORMAL) [facility] FPGS,HPV,CT/GC PANEL (08/24/2014 4:01 PM EDT) Clinical information NONE GIVEN [facility] Comment:{CLINICAL INFORMATIO N: {[id number]) Date last menstrual period 6000316 [facility] Comment:{LMP: {[id number]) Date of previous PAP smear NONE GIVEN [facility] Comment:{PREV. PAP: {[id number]) Date of previous biopsy NONE GIVEN [facility] Comment:{PREV. BX: {[id number]) Specimen source (Cvx/Vag) Cervix, Endocervix [facility] Comment:{SOURCE: {[id number]) Statement of Adequacy (Cvx/Vag) Satisfactory for evaluation. Endocervical/hearn sformation zone component absent. [facility] Comment:{STATEMENT OF ADEQUA CY: {[id number]) General categories (Cvx/Vag) EPITHELIAL CELL ABNORMALITY(A) [facility] Comment:{GENERAL CATEGORIZAT ION: {[id number]) Cytology, Pap Smear Low Grade Squamous Intraepithelial Lesion (LSIL)(A) [facility] Comment:{INTERPRETATION/RESU LT: {[id number]) Cytology study comment (Cvx/Vag) This Pap test has been evaluated with computer assisted technology. [facility] Comment:{COMMENT: {[id number]) Candy Department Manager (Cvx/Vag) MPG, CT(ASCP) [facility] Comment:{SENIOR CONTROLS TECHNICIAN: { [id number]) Pathologist (Cvx/Vag) Lorena Mcgrath M.D., Board Certified in Anatomic and Clinical Pathology (electronic signature) Consulting Pathologist [facility] [address] [place] [address] [facility] Comment:{PATHOLOGIST: {[id number]) HPV MRNA E6/E7 Detected(A) Not Detected [facility] Comment: {HPV mRNA E6/E7, SUREPATH VIAL {[id number]) This test was performed using the APTIMA HPV Assay ([employer] This assay detects E6/E7 viral messenger RNA (mRNA) from 14 high-risk HPV types (16,18,31,33,35,39,45,51,52,56,58,59,66,68). The analytical performance characteristics of this assay, when used to test SurePath specimens, have been determined by [employer] [facility]. Chlamydia trachomatis rRNA NOT DETECTED NOT DETECTED [facility] Comment:{CHLAMYDIA TRACHOMAT IS RNA, TMA {[id number]) Neisseria Gonorrhoeae rRNA NOT DETECTED NOT DETECTED [facility] Comment:{NEISSERIA GONORRHOE AE RNA, TMA {[id number]) COMMENT SEE NOTE [facility] Comment: {COMMENT {[id number]) This test was performed using the APTIMA COMBO2 Assay ([employer] The analytical performance characteristics of this assay, when used to test SurePath specimens have been determined by [facility]. 08/24/2014 4:01 PM EDT 08/25/2014 1:12 AM EDT Narrative Resulting Agency Comment [id number] Estephania Skelton [facility] Aissatou l Result Performing Organization Address [facility] Co de Phone Number [facility] [address] [place] [address] * RPR, (RAPID PLASMIN REAGIN) WITH REFLEX TO FTA, DIAGNOSTIC (08/24/2014 1:40 PM EDT) Reagin Ab NON-REACT LEIGH ANN NON-REACT LEIGH ANN [facility] Comment:{RPR (DX) W/REFL TIT ER AND CONFIRMATORY TESTING {[id number]) 08/24/2014 1:40 PM EDT 08/25/2014 12:58 AM EDT Narrative Resulting Agency Comment [id number] Estephania Nafisa [facility] Final Res ult Performing Organization Address [facility] Co de Phone Number [facility] [address] [place] [phone] * HEPATITIS C ANTIBODY, SERUM (08/24/2014 1:40 PM EDT) Hepatitis C virus Ab NON-REACTI VE NON-REACT LEIGH ANN [facility] Comment:{HEPATITIS C ANTIBOD Y {[id number]) Hepatitis C virus Ab Signal/Cutoff 0.07 <1.00 [facility] Comment:{SIGNAL TO CUT-OFF { [id number]) 08/24/2014 1:40 PM EDT 08/25/2014 12:58 AM EDT Narrative Resulting Agency Comment [id number] [facility] Final Res ult Performing Organization Address [facility] Co de Phone Number [facility] [address] [place] [address] documented in this encounter Visit Diagnoses Diagnosis Encounter for routine gynecological examination Routine gynecological examination documented in this encounter Care Teams Leather Stamper Relationship Specialty Start Date End Date Paul Mix MD [facility] [address] [place] [address] PCP - General 05/25/09 11/19/14 Lisette Murillo [facility] [address] [place] [address] PCP - General Internal Medicine 11/20/14 documented as of this encounter
--- OUTSIDE RECORDS SUMMARY | 2024-07-23 13:20 | XMS_ITS | Encounter Summary ---
Author Organization [employer] Address [address] [place] [address] 7t [place] [address] Care Team Providers Care First Aid Officer Name Role Phone Shruti Campos MD Primary Care Pro vider Reason for Visit * Reason Comments Med Change Request Encounter Details Date Type Department Care Team ([facility] Contact Info) Description 07/21/2024 Refill [facility] [address] [place] [address] Shruti Campos MD [address] [place] [address] Social History Tobacco Use Types Packs/Day Years [...] is your housing situation today? I have mohan melo 07/15/[address] you [...] 1:07 PM EDT Azalia Miller MA * Feeling down, depressed, or hopeless Answer Date of Assessment Author Not at all 07/21/2024 1:07 PM DODIET Azalia Miller MA * Trouble falling or staying asleep, or sleeping too much Answer Date of Assessment Author Not at all 07/21/2024 1:07 PM EDT Azalia Miller MA * Feeling tired or having little energy Answer Date of Assessment Author Not at all 07/21/2024 1:07 PM DODIET Azalia Miller MA * Poor appetite or overeating Answer Date of Assessment Author Not at all 07/21/2024 1:07 PM DODIET Azalia Miller MA * Feeling bad about yourself - or that you are a failure or have let yourself or your family down Answer Date of Assessment Author Not at all 07/21/2024 1:07 PM EDT Azalia Miller MA * Trouble concentrating on things, such as reading the newspaper or watching television Answer Date of Assessment Author Not at all 07/21/2024 1:07 PM EDT Azalia Miller MA * Moving or speaking so slowly [...] Description 09/19/2024 1:00 PM EDT Office Visit [facility] [address] [place] [address] Shruti Campos MD [address] [place] [address] documented as of this encounter Visit Diagnoses Not on filedocumented in this encounter Additional Health Concerns Assessment Noted Time PHQ-9 Depression Total Score: 0 07/22/19 25 1:07 PM EDT documented as of this encounter Care Teams First Aid Officer Relationship Specialty Start Date End Date Shruti Campos MD [address] [place] [address] [phone] PCP - General Internal Medicine 05/11/23 documented as of this encounter
--- OUTSIDE RECORDS SUMMARY | 2024-07-23 13:20 | XMS_ITS | Referral Summary ---
Author Organization [facility] Address [address] [place] [address] Care Team Providers Care Hospital Coordinator Name Role Phone Unavailable Primary Care Provider Unavailabl e Encounters Date Type Department Care Team Description 06/12/[address] [facility] 4th floor Cardiology Medicine [address] [place] [address] Extrusion Engineer: Carmen Smith DO from Last 3 [...] pain syndrome 01/20/2019 Episodic mood disorder 05/15/2018 [facility] (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 2017 PVD [...] absorb on its own. Follow up with [facility] in 2-3 weeks to discuss management of [...] scheduled for 05/01 at 11:15 AM at [facility] Essential hypertension 04/23/2017 Assessment & Plan (07/15/2017 [...] asymptomatic. Recommend follow up with Dr. Liriano -[facility] in 2-3 weeks after discharge. Patient to [...] Not on file Procedures * Due to [place] state law, this organization might not be sharing negative HIV tests. Procedure Name Priority Date/Time Associated Diagnosis Comments POCT HEMOGLOBIN A1C, CMG, NON-INTERFACED Routine 06/05/2022 11:58 AM EDT Type 2 diabetes mellitus with other specified complication, unspecified whether oil heaterman insulin use BASIC METABOLIC PANEL STAT 06/02/2022 12:15 PM EDT [facility] W/HPV, MRNA E6/E7, REFLEX 16/18/45 Routine 08/08/2017 11:00 AM EDT Screening for malignant neoplasm of cervix Screening for human papillomavirus HEPATITIS C ANTIBODY, CONVERSION Routine 09/16/2010 12:21 PM EDT from Last 3 Months or Most Recently Relevant to Health Maintenance Results * Due to [place] state law, this organization might not be [...] 5 - 15 06/02/2022 1:[address] [facility] eGFR 74(L) >=90 mL/min/1. 73m2 06/02/2022 1:[address] [facility] Comment: Estimated Glomerular Filtration Rate [...] Vazquez MD LAB BLOOD ORDERABLES Final Result [facility] [address] [place] [address], * (ABNORMAL) [facility] w/HPV, mRNA E6/E7, Reflex 16/18/45 (08/08/2017 11:00 AM EDT) [facility] TIS, mRNA E6/E7 Jessica See Below(A) [employer] Comment: TIS,mRNA E6/E7 JESSICA ?? CLINICAL INFORMATION: [...] evaluated with computer ? assisted technology. ?? HOTEL STAFF MEMBER: ? MPG, CT(ASCP) ? CT screening location: [facility] ? [address] ? [place], [place] ??[address] ?? PATHOLOGIST: ? Maxwell Oreilly M.D. Direct , ? Board Certified in Anatomic and Clinical ? Pathology and Cytopathology ? (electronic signature) ? Consulting Pathologist ? [facility] ? [address] ? [place] [address] ? [phone] ?? HPV mRNA E6/E7 ? Not Detected ? REFERENCE RANGE: Not Detected ? This test was performed using the APTIMA HPV Assay ([employer] ? This assay detects E6/E7 viral [...] ORDER STELLA Final Result [facility] [address] [facility] 3rd Floor, [place] [address], [place] [phone] [facility] [address], [place] [address], [place] [phone] * HEPATITIS C ANTIBODY, CONVERSION (09/16/2010 12:21 PM EDT) Hepatitis C Antibody <0.02 <1.00 IV [facility] Comment: Negative Not infected with HCV, unless recent infection is suspected or other evidence exists to indicate HCV infection. 09/16/2010 12:2 1 PM EDT 09/16/2010 1:08 PM EDT Paula Valdez MD LAB HISTORICAL RESULTS F inal Result [facility] [address] [place] [address], [place] from Last 3 Months or Most Recently Relevant to Health Maintenance Insurance [facility] [place] [id number] [place] Advance Directives Documents on File Type Date Recorded Patient Astrophysics Teacher Expl 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
--- OUTSIDE RECORDS SUMMARY | 2024-07-23 13:20 | XMS_ITS | Encounter Summary ---
Author Organization [employer] Address [address] [place] [address] 7 [place] [address] Care Team Providers Care Breakfast Attendant Name Role Phone Shruti Campos MD Primary Care Pro vider Reason for Referral * Consultation (Routine) - Authorized Specialty Diagnoses / Procedures Referred By Contac t Referred To Contact Sleep Medicine Diagnoses ANGELA (obstructive sleep apnea) Shruti Campos MD [address] [place] [phone] Phone: tel: fax: Sleep Medicine Service [address], [address] [place] [address] Phone: tel: fax: Referral ID Status Reason Start Date Expiration Date Visits Requested Visits Authorized [id number] Authorized Specialty Services Required 07/22/2024 07/22/2025 12 12 Encounter Details Date Type Department Care Team (Late st Contact Info) Description 07/21/2024 1:00 PM EDT Office Visit [facility] [address] [place] [phone] Shruti Campos MD [address] [place], [place] [phone] ANGELA (obstructive sleep apnea) (Primary Dx); Paroxysmal atrial fibrillation (CMS/HCC); Mild intermittent asthma with acute exacerbation; Essential hypertension; Morbid obesity (CMS/HCC); Type 2 diabetes mellitus with microalbuminuria, without long-term current use of insulin (CMS/HCC); Health care maintenance; Major depressive disorder, recurrent, moderate (CMS/HCC) Social History Tobacco Use Types Packs/Day Years [...] Sign Reading Time Taken Comments Blood Pressure 141/89 07/21/2024 1:15 PM EDT Pulse 90 07/21/2024 1:06 PM EDT Temperature 36.3 ??C (97.3 ??F) 07/21/2024 1:06 PM ED T Respiratory Rate 20 07/21/2024 1:06 PM EDT Oxygen Saturation - - Inhaled Oxygen Concentration - - Weight 130 kg (287 lb) 07/21/2024 1:06 PM EDT Height 162.6 cm (5' 4 ) 07/21/2024 1:06 PM EDT Body Mass Index 49.26 07/21/2024 1:06 PM EDT documented in this encounter Functional Status * Over the [...] PM EDT Azalia Miller MA * Trouble falling or staying asleep, or sleeping too much Answer Date of Assessment Author Not at all 07/21/2024 1:07 PM EDT Azalia Miller MA * Feeling tired or having little energy Answer Date of Assessment Author Not at all 07/21/2024 1:07 PM EDT Azalia Miller MA * Poor appetite or overeating Answer Date of Assessment Author Not at all 07/21/2024 1:07 PM EDT Azalia Miller MA * Feeling bad about [...] Miller MA documented as of this encounter Progress Notes * Shruti Handy MD - 07/21/2024 1:00 PM EDT Subjective Patient ID: Bria Nevarez is a 43 y.o. female who presents for f up apt HPI Use cane 43 years old F w PMX of Morbid Obesity s/p Laparoscopic Sleeve Gastrectomy,ANGELA, DM2,HTN, ParoxysmalA.Fib on AC, PCOS, Left Knee OA s/p ACL reconstruction,Depression,Lumbosacral and Cervical Radiculopathy,CTS .Asthma,GERD,Anemia,hx of shingles,Urinary incontinence Pt already following w PM for chronic back pain Comes for f up apt Reports constipation improved after started on linzess ,pt also started taking Cymbalta for couple of months but stopped given thinks was worsening mood and no interested in taking antidepressants atthis time. -pt has pd to do labs ordered in 11/2023-Reminded today ------ -LMP: ? -------- Assessment and Plan: Health care maintenance -Annual exam done 05/2023 -contraceptive : none-partner s/p vasectomy -record of Pap smear (08/24/14): LGSIL, +HPV---11/2023 pap smear Neg/HPV neg told to repeat in 1y Rachel R -MM 07/2023 ANNA 1--gave # of radiologist today to call for screening MM -vaccines : tdap 2011 and TD 2017 . COVID 19 never-refuse vaccine , Flu vaccine- refuse vaccine, HPV:never-refuse, P20 never for DM hx -refuse ,MMR immune in 2017,Hep B not immune -refuse -------- 06/2023 Vit D 16.2 ------takes MVI already + vit D 2000 u daily ---check level ordered in 11/2023 pd to get labs done Morbid Obesity -Lost 8 pounds in last 6 months -BMI 49 S/p Laparoscopic sleeve Gastrectomy in 03/2024 seen by clinic provider for acneiform rash in chin/neck tough per pt was associated w Trulicity so was switched to Ozempic. Pt states rash still is occurring but not as intense as w Trulicity -taking MVI daily -life style changes advised and activity as tolerated -will switch today to Mounjaro 2.5 mg weekly for her DM as well for weight loss ,will increase dosee 4 weeks , Seems Ozempic may be causing rash in chin but unsure, but not able to loss significant weight in all the months she has been using Ozempic so pt will benefit from med change ,if not covered will resume Ozempic at higher doseof 2 mg weekly DM2 06/2023 hb1AC 7.2 ,ALT 38 -Metformin -discontinued it due to redness of face from records -branch maker seen in 08/2023 -critical care rn seen in 07/2023 to f in 1 y -as above switching from Ozempic to Mounjaro -Continue Atorvastatin 10 mg -DM Labs ordered already -pd to have labs done -Sent glucomer today to check daily CBG HTN Controlled usually ,borderline today-states feeling anxious ,dont bring home BP readings (Cough with Lisinopril). -EKG baseline 06/2023 sinus rhythm, HR 72x',QTC 427, noted mild TWI in lead V5,V6,aVL and possible LVH -Losartan 25 mg daily, 120 mg daily,Metorpolrol ER 50 mg daily and 25 mg HS ,clonidine 0.2 mg BID -Renal doppler US 2016: unremarkable -critical care rn seen in 07/2023 to f in 1 y -f w plastic bubble packer -advised to bring home BP readings at next apt,if needed will increase losartan at next apt -advised pt to scheduled f up w her critical care rn Paroxysmal A.Fib On AC-Goal 2-3 ,denies bleeding and easy bruising -EKG 06/2023 sinus rhythm, HR 72x',QTC 427, noted mild TWI in lead V5,V6,aVL and possible LVH--pd toschedule apt w cards -TTE 05/2022 : Vigorous left ventricular systolic function. Estimated LVEF 65%. Concentric hypertrophy present, unable to accurately determine LV dimensions from parasternal long axis images available - Calc [id number] score of 3. -cards 05/2024 Continue warfarin therapy for full anticoagulation. Continue diltiazem and metoprolol. EKG was normal sinus rhythm. -continue to f w coumadin clinic - Currently on Warfarin. (Patient was on Eliquis in the past but it was discontinued due to her history of PCOS and ruptured ovarian follicle as well pt reports hx of recurrent falls ,from cards' note also for morbid obesity hx ) -continue care w cards -px pulse ox for check HR requested by pt-sent already ANGELA hx Not able to use her machine -referred again to sleep med w obesity,loud snoring Chronic pain syndrome Lumbosacral and Cervical Radiculopathy/moderate lumbar central spinal canal stenosis -MR Cervical Spine w/o Contrast 05/2019: There is straightening of the alignment of cervical vertebral bodies suggesting the presence of muscle spasm. The cervical spinal cord appears normal in size, contour and signal intensity. There are minimal central disc herniations at the C4-5, C5-6 and C6-7 levels without significant compression of the thecal sac or neural foramen.No cerebellar tonsillar ectopia is identified. - MRI Lumbar spine 01/2022- Multilevel, multifactorial, variable severity spondylosis (most severe at L4-L5 level). Grade 1 anterolisthesis of L4 relative to L5. At L4-L5, moderate to severe facet arthropathy with mild disc bulge and posterior superior uncovering of the disc resulting in moderate central spinal canal stenosis and moderate bilateral neural foraminal narrowing. - Tried Gabapentin,Lyrica ,Tizanidine in the past w no major effect,also Cymbalta did not helped and worsen mood -Marijuana smoking and eadibles 4 mg e/ 6 h for pain management -offered acupuncture-refuse -refuse pain chronic group -On methocarbamol 500 mg PO TID PRN px by PM -PM 08/2023 Px TENS unit ordered for neck ,shoudler pain, not taking gabapentin px by PM given was not helpful Left knee OA - s/p ACL repair. -MRI knee left without contrast 08/2020: Status post left knee anterior cruciate ligament reconstruction surgery. No anterior cruciate ligament is seen at the current time. Prominent osteoarthritis involving the medial and lateral femoral tibial joint compartments, more severe medially.Decreased volume of the medial meniscus, especially in the posterior horn region. These findings are likely related to prior meniscal tear/surgery and degeneration. There are 2 intra- articular loose bodies noted. There is a left knee joint effusion. There is a possible ganglion cyst present along the posterior aspect of the left knee joint, in the midline -uses Marijuana for pain -advised to speak w her orthopedic about this -refuse knee brace-states has at home and not useful B/L Carpal tunnel syndrome -EMG nerve conduction 06/2023 : evidence of mild to moderate bilateral carpal tunnel syndrome. No definite evidence of peripheral neuropathy is present. -Ortho 10/19/2023 [facility] Bilateral carpal tunnel syndrome, moderate to severe Symptoms rec for carpal tunnel syndrome is surgical intervention and referred to occupational hand therapy for range of motion and strengthening of bilateral hands -pt thinking about surgery offered by orthopedic Hx PCOS -Reported per pt -pelvic US 06/2022 :The right ovary, which can only be seen transabdominally due to obscuration by bowel gas on the endovaginal images, measures 2.3 x 2.8 x 1.8 cm. Normal right ovarian texture. No suspicious right adnexal abnormality. The left ovary measures 2.2 x 2.2 x 2.9 cm. Several small left ovarian follicles as well as a 1.6 cm cyst that is likely a dominant follicle. No suspicious left adnexal abnormality. -referred by Boogie Garner for Tv/pelvis US --gave # of radiologist to schedule apt Asthma -CT Chest Pulmonary Embolism w/ Contrast 04/2017: Small areas of tree-in-bud opacities in the right middle, right upper and left upper lobes, probably representing bronchiolitis. -not using albuterol feels controlled -will need to consider CT chest to eval above findings -hold for now will offer in future until complete rest of eval Depression/HAMLET/PTSD PHQ 12<--- 18 HAMLET 19< --- 21 no SI , no halluicnations, no gabriella , reports OCD and ADHD - saw pt at last apt -referred to out pt tx for---but pt refusing to follow -Tried Cymbalta 20 mg daily but states worsen mood and stopped -refusing to try other antidepressants ,pt states symptoms are mainly associated w chronic pain GERD -on omeprazole 20 mg daily-tried to stop w recurrent symptoms -life style changes advised -referred to GI -- gave today information to pt to call for apt Constipation -life stye changes advised , increase hydration and activity -pt on bisacodyl, colace,miralax w no major improvement -continue linzess that is helping -Referred to GI -- gave today information to pt to call for apt Glaucoma left eye glaucoma per pt -critical care rn seen in 07/2023 to f in 1 y --advised to reschedule apt Anemia -06/2023 hb 10.9 ,MCV 72.9 , Vit B12/folic acid wnl -s/p bariatric surgery and ,heavy menstrual periods since taking warfarin -started on iron 3 times a week -will check CBC and iron -ordered already Venous insufficiency Chronic bilateral LE swelling,used compressions stockings in the past Pt is using compressions stockings helping w leg cramps Skin lesion -flat skin lesion in her forehead -possible keratosis -referred to nurse technician-states has apt this month Urinary incontinence Hx of urinary incontinence when cough no other symptoms From [facility] evaluation back in 11/2023 Mild rectocele with Valsalva, poor tone with Kegels Discussed pelvic floor PT vs urogyn evaluation. Will refer to urogyn given long waitlists with pelvic floor PT --Referred then to uroGYN Review of Systems Constitutional: Negative. Respiratory: Negative. Cardiovascular: Negative. Objective BP (!) 141/89 (BP Location: Left arm, Patient Position: Sitting, BP Cuff Size: Large adult) Pulse90 Temp 97.3 ??F (36.3 ??C) (Temporal) Resp 20 Ht 5' 4 (1.626 m) Wt 287 lb (130 kg) LMP 07/07/2024 (Approximate) BMI 49.26 kg/m?? Physical Exam Constitutional: General: She is not in acute distress. Appearance: She is obese. Neurological: Mental Status: She is alert. Assessment/Plan Problem List Items Addressed This Visit Essential hypertension Major depressive disorder, recurrent, moderate (CMS/HCC) Mild intermittent asthma Morbid obesity (CMS/HCC) ANGELA (obstructive sleep apnea) - Primary Relevant Orders Referral to Sleep Medicine Paroxysmal atrial fibrillation (CMS/HCC) Type 2 diabetes mellitus with microalbuminuria, without long-term current use of insulin (CMS/[facility]) Health care maintenance documented in this encounter Plan of Treatment Upcoming Encounters Date Type Department Care Team (Late st Contact Info) Description 09/19/2024 1:00 PM EDT Office Visit [facility] [address] [place] [address] Shruti Campos MD [address] [place] [address] Scheduled Referrals Name Type Priority Associated Diagnoses Orde r Schedule Referral to Sleep Medicine Outpatient Referral Routine ANGELA (obstructive sleep apnea) Expected: 07/21/2024 (Approximate), Expires: 07/21/2025 documented as of this encounter Visit Diagnoses Diagnosis ANGELA (obstructive sleep apnea)- Primary Obstructive sleep apnea (adult) (pediatric) Paroxysmal atrial fibrillation (CMS/HCC) Atrial fibrillation Mild intermittent asthma with acute exacerbation Essential hypertension Unspecified essential hypertension Morbid obesity (CMS/HCC) Morbid obesity Type 2 diabetes mellitus with microalbuminuria, without long-term current use of insulin (CMS/HCC) Health care maintenance Major depressive disorder, recurrent, moderate (CMS/HCC) Major depressive disorder, recurrent episode, moderate documented in this encounter Additional Health Concerns Assessment Noted Time PHQ-9 Depression Total Score: 0 07/22/19 25 1:07 PM EDT documented as of this encounter Care Teams Breakfast Attendant Relationship Specialty Start Date End Date Shruti Campos MD [address] [place] [phone] PCP - General Internal Medicine 05/11/23 documented as of this encounter
--- OUTSIDE RECORDS SUMMARY | 2024-07-23 13:20 | XMS_ITS | Encounter Summary ---
Author Organization [employer] Address [address] [place] [address] [address] [place] [address] Care Team Providers Care Beck Tender Name Role Phone Shruti Campos MD Primary Care Pro vider Reason for Visit * Reason Onset Date Comments CHART PREP 07/18/2024 Encounter Details Date Type Department Care Team ([facility] st Contact Info) Description 07/18/2024 Telephone [facility] [address] [place] [phone] Shruti Campos MD [address] [place] [address] CHART PREP Social History Tobacco Use Types Packs/Day Years [...] Questionnaire Data Not on file 0 05/11/2023 Housing Stability Answer Date Recorded What is [...] encounter Miscellaneous Notes * Telephone Encounter - Sara Ortez MA - 07/18/2024 11:41 AM EDT Chart Prep Labs: done from 06/13/24. Images: not done foot x-ray t/c for a reminder t stated she doesn't think she needs an x-ray she thinks is her neuropathy. Referrals: not applicable Vaccines due: PCV20 and Hep B Screenings: pap smear and LMP Overdue care gaps: A1c, Glucose, SBIRT, PHQ-9, Disability screen, and Tobacco documented in this encounter Plan of Treatment Upcoming Encounters Date Type Department Care Team (Late st Contact Info) Description 09/19/2024 1:00 PM EDT Office Visit [facility] [address] [place] [phone] Shruti Campos MD [address] [place] [address] documented as of this encounter Visit Diagnoses Not on filedocumented in this encounter Additional Health Concerns Assessment Noted Time PHQ-9 Depression Total Score: 18 03/01/2 024 12:25 PM EST documented as of this encounter Care Teams Beck Tender Relationship Specialty Start Date End Date Shruti Campos MD [address] [place] [phone] PCP - General Internal Medicine 05/11/23 documented as of this encounter
--- OUTSIDE RECORDS SUMMARY | 2024-07-23 13:20 | XMS_ITS | Clinical Summary ---
Author Organization [employer] Address [address] [place] [address] 7t [place] [address] Care Team Providers Care Account Executive Trainee Name Role Phone Shruti Campos MD Primary Care Pro vider Allergies Active Allergy Reactions Criticality Noted Date Comments Lisinopril Cough High 12/17/2016 Itchy throat-cough Medications * This document contains information received from the source organization and may not represent a complete record from that organization. Multiple Vitamin (multivitamin) capsule Take 1 capsule by mouth Once per day. Active Misc. Devices (Pulse Oximeter) misc 1 Device Once per day. 1 each 12/27/19 24 Active cholecalcifero l (Vitamin D-3) 50 MCG (1999 UT) capsule TAKE 1 CAPSULE BY MOUTH EVERY DAY 90 capsule 1 01/15/20 24 Active ferrous gluconate (Fergon) 324 (38 Fe) MG tablet TAKE 1 TABLET BY MOUTH THREE TIMES A WEEK 36 tablet 1 01/15/20 24 Active cloNIDine (Catapres) 0.2 [...] DAY 510 g 2 02/22/20 24 Active diazePAM (Valium) 2 MG tabletIndicati [...] OR SPLIT. 90 tablet 06/11/19 25 Active losartan (Cozaar) 25 MG tablet TAKE 1 TABLET BY MOUTH EVERY DAY 90 tablet 06/14/19 25 Active metoprolol succinate XL (Toprol-XL) 25 MG 24 hr tablet TAKE 2 TABLETS (50 MG TOTAL) BY MOUTH ONCE A DAY AND 1 TABLET (25 MG TOTAL) EVERY EVENING. 270 tablet 1 06/14/19 25 Active loratadine (Claritin) 10 MG tablet TAKE 1 TABLET BY MOUTH EVERY DAY 90 tablet 1 06/24/19 25 Active atorvastatin (Lipitor) 10 MG tablet TAKE 1 TABLET BY MOUTH EVERY DAY 90 tablet 1 06/25/19 25 Active omeprazole (PriLOSEC) [address] capsule TAKE 1 CAPSULE BY MOUTH EVERY DAY 90 capsule 1 07/16/19 25 Active Tirzepatide (Mounjaro) 2.5 MG/0.5ML solution auto-injector Inject 2.5 mg under the skin 1 (one) time per week. Start 2.5 mg weekly x 4 weeks, then increase to 5 mg weekly x 4 weeks, then 7.5 mg weekly 2 mL 07/22/19 25 025 Active Blood Glucose Monitoring Suppl (FreeStyle Strawberry Lite) w/Device kit Check glucose daily 1 kit 07/22/19 25 Active glucose blood (FREESTYLE LITE) test strip Check CBG daily 60 each 07/22/19 25 Active FreeStyle lancets 1 each by Other route Once per day. TEST BLOOD SUGAR ONCE A DAY 100 each 07/23/19 25 Active methocarbamol (Robaxin) 500 MG tablet PLEASE SEE ATTACHED FOR DETAILED DIRECTIONS 06/30/19 24 025 Discontinued(Ot her) dulaglutide (Trulicity) 1.5 MG/0.5ML solution pen-injector Inject 1.5 mg under the skin 1 (one) time per week. 4 each 11/22/19 24 025 Discontinued(Ot her) atorvastatin (Lipitor) 10 MG tablet TAKE 1 TABLET BY MOUTH EVERY DAY 90 tablet 1 12/28/19 24 025 Discontinued omeprazole (PriLOSEC) [address] capsule TAKE 1 CAPSULE BY MOUTH EVERY DAY 90 capsule 1 01/15/20 24 025 Discontinued semaglutide (Ozempic) 2 MG/1.5ML solution pen-injectorIn dications:Type 2 diabetes mellitus with microalbuminur ia, without long-term current use of insulin ([facility]) Inject 1 mg under the skin 1 (one) time per week. 2 each 04/07/19 025 Discontinued(Ot her) FreeStyle lancets 1 each by Other route Once per day. Use bid, dx type 2 diabetes 60 each 07/22/19 025 Discontinued Active Problems Problem Noted Date [...] intervention , [facility], and Patient to reach out to [facility] as needed Mild intermittent asthma 04/10/2019 Glaucoma of left eye 02/15/2019 Chronic pain syndrome 01/20/2019 [facility] (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 2017 PVD (peripheral [...] absorb on its own. Follow up with AIRCRAFT AVIONICS TECHNICIAN in 2-3 weeks to discuss management [...] Encounters Date Type Department Care Team Description 07/21/2024 1:00 PM EDT Office Visit [facility] [address] [place] [phone] Shruti Campos MD ANGELA (obstructive sleep apnea) (Primary Dx); Paroxysmal atrial fibrillation (CMS/HCC); Mild intermittent asthma with acute exacerbation; Essential hypertension; Morbid obesity (CMS/HCC); Type 2 diabetes mellitus with microalbuminuria, without long-term current use of insulin (CMS/HCC); Health care maintenance; Major depressive disorder, recurrent, moderate (CMS/HCC) 07/21/2024 Refill [facility] [address] [place] [address] Shruti Campos MD 07/21/2024 Travel 07/18/2024 Telephone [facility] [address] [place] [phone] Shruti Campos MD CHART PREP 07/15/2024 Patient Outreach [facility] [address] [place] [address] [place] [phone] Shruti Campos MD Care Coordination (CHW outreach for SDOH housing search-LVM ) 07/15/2024 Patient Outreach [facility] [address] [place] [address] Shruti Campos MD Pre-visit Planning (SDOH screening positive and Tobacco screening negative) 07/15/2024 Refill [facility] [address] [place] [address] Shruti Campos MD 06/23/2024 Refill [facility] [address] [place] [address] Shruti Campos MD 06/23/2024 Refill [facility] [address] [place] [address] Rosana Jaramillo MD Anxiety 06/23/2024 Refill [facility] [address] [place] [address] Ryanne Vega MD 06/23/2024 Refill [facility] [address] [place] [address] Shruti Campos MD 06/21/2024 Refill [facility] [address] [place] [address] Shruti Campos MD 06/16/2024 Telephone [facility] [address] [place] [address] Shruti Campos MD Paperwork/Forms 06/13/2024 Orders Only GENERIC EXTERNAL DATA DEPARTMENT Provider, Generic External Data 06/12/2024 Refill [facility] [address] [place] [address] Shruti Campos MD 06/12/2024 Refill [facility] [address] [place] [address] Ryanne Vega MD 06/08/2024 Refill [facility] [address] [place] [address] Shruti Campos MD 05/23/2024 Population Health Risk Score [facility] () Department [address] [place] [phone] Provider, Population Health Generic 05/20/2024 Telephone [facility] [address] [facility] [place] [address] Shruti Campos MD May recall 05/16/2024 Orders Only GENERIC EXTERNAL DATA DEPARTMENT Provider, Generic External Data 05/11/2024 Refill [facility] [address] [facility] [place] [address] Ryanne Vega MD 04/25/2024 Refill [facility] [address] [facility] [place] [place] [address] Shruti Campos MD from Last 3 Months Immunizations Immunization Administration Dates Next Due Influenza, IIV3, injectable [...] your housing situation today? I have mohan kameron 07/15/[address] you li [...] 20 07/21/2024 1:06 PM EDT Oxygen Saturation 99% 04/07/2024 1:16 PM EST Inhaled Oxygen Concentration - - Weight 130 kg (287 lb) 07/21/2024 1:06 PM EDT Height 162.6 cm (5' 4 ) 07/21/2024 1:06 PM EDT Body Mass Index 49.26 07/21/2024 1:06 PM EDT Plan of Treatment Upcoming Encounters Date Type Department Care Team (Late st Contact Info) Description 09/19/2024 1:00 PM EDT Office Visit [facility] [address] [place] [phone] Shruti Campos MD [address] [place] [address] Health Maintenance Due Date Last Done Comments Lipid Panel 1979 Diabetes: Foot Exam 11/07/1989 Diabetes: Hemoglobin A1C 07/06/2024 025, 06/20/2023, 06/05/2022 Influenza Vaccine (#1) 2024 2, 11/29/2010 Postponed from 11/11/2023 (Patient Refused) Cervical Cancer Screening 12/03/2024 Family Planning (PISQ) 12/03/2024 12/04/2023 HPV/Cotest 12/03/2024 12/04/2023 Pap Smear 12/03/2024 12/04/2023 Tobacco Screening 12/03/2024 12/04/2023 SDOH Screening 07/15/2025 07/15/2024 Alcohol/Substance Use Screening 07/21/2025 07/21/2024 Depression Screening 07/21/2025 07/21/2024, 07/21/2024 COVID-19 Vaccine (1 - 2023-2 5 season) 2025 Postponed from 11/10 (Patient Refused) Hepatitis B Vaccines (1 of 3 - 19+ 3-dose series) 07/22/2025 Postponed from 10/11 (Patient Refused) Pneumococcal Vaccine: Pediatrics (0 to 5 Years) and At-Risk Patients (6 to 49) Years) (1 of 2 - PCV) 07/22/2025 Postponed from (Patient Refused) Mammogram 08/09/2025 08/10/2023 Eye Exam 08/12/2025 08/13/2023 [...] [facility] Routine 05/16/2024 1:41 PM EST POCT GLYCATED HEMOGLOBIN, TOTAL Routine [...] 1:52 PM EDT) Only the most recent of2 resultswithin the time period is included. Protime 29.1(H) 11.1 - 13.5 sec [facility] 06/13/2024 1:52 PM EDT 06/13/2024 1:54 PM EDT Generic External Data Provider LAB BLOOD ORDERAB LES Final Result Performing Organization Address City/[facility]/ZIP Co de Phone Number [facility] [address] [place] [phone] * (ABNORMAL) ~PT, ~INR - ANTI COAG CLINIC (06/13/2024 1:52 PM EDT) Only the most recent of2 resultswithin the time period is included. Pathologist [facility] Prothrombin Time INR 2.4(H) 0.9 - 1.1 [facility] Comment:METER #: [id number] TERNATIONAL NORMALIZED RATIO (INR) REFERENCE RANGES Reference [...] ORDERAB LES Final Result Performing Organization Address City/[facility]/ZIP Co de Phone Number [facility] [address] [place] [phone] * (ABNORMAL) POCT HGB A1C (04/07/2024 1:38 PM EST) Pathologist [facility] Hemoglobin A1C 7.2(A) 4.0 - 6.0 % QC Media Lot # [id number] Lot# Expiration Date Blood 04/07/2024 1:38 PM EST us [facility] POINT OF CARE TEST ENTER/EDIT OR DERABLES Final Result * [facility] Pap and HPV mRNA E6/E7 (12/04/2023 2:30 PM EDT) HPV nRNA E6/E7 Not Detected Not Detected [facility] Comment:Methodology: Transcr iption-Mediated AmplificationThis assay detects E6/E7 viral messenger RNA (mRNA) from 14high-risk HPV types (16,18,31,33,35,39,45,51,52,56,58,59,66,68).Cervical sources are required for HPV testing.If a vaginal source from a patient who has had atotal hysterectomy with removal of cervix wassubmitted, please contact the testing laboratoryfor alternative testing options.For additional information, please refer [email or web address]/faq/AZY867h1(This link if provided for information/educational purposes only.)THIS TEST WAS PERFORMED AT:[email or web address] [address] [phone] GONZALEZ MD SOURCE: SEE NOTE [facility] Comment:None given Report Status: [facility] Clinical Information: SEE NOTE [facility] Comment:None given LMP: SEE NOTE [facility] Comment:NONE GIVEN Prev. PAP: SEE NOTE [facility] Comment:NONE GIVEN Prev. BX: SEE NOTE [facility] Comment:NONE GIVEN Statement Of Adequacy: SEE NOTE [facility] Comment:Satisfactory for laureano luation.Endocervical/transformation zone component absent. General Categorization: [facility] Interpretation/Result: SEE NOTE [facility] Comment:Cytology Results: Ne gative for intraepitheliallesion or malignancy. Cytology Comment SEE NOTE [facility] Comment:This Pap test has be en evaluated with computerassisted technology. Cable Systems Installer: SEE NOTE [facility] Comment:DCR, CT(ASCP)CT scre ening location: [place] [address] Review Cable Systems Installer: TNP [facility] Pathologist TNP [facility] PAP Infection SEE NOTE [facility] Comment:Shift in vaginal amrik ra suggestive of bacterialvaginosis. See Note SEE NOTE [facility] Comment:EXPLANATORY NOTE:The Pap is a [...] EDT 12/04/2023 6:04 PM EDT Narrative [facility] - 12/07/2023 12:53 PM EDT SEE SCANNED RESULTS IN EMR us Pam Guzman [facility] PATHOLOGY ORDERABLES Final Result [facility] [address] [place] [address] [phone] * Referral to Ophthalmology (08/13/2023) us Shruti Handy MD OUTPATIENT REFERR AL ORDERABLES Final Result * BI Mammogram Screening Tomosynthesis Bilateral (08/10/2023 11:20 AM EDT) Anatomical Region Laterality Modality Breast Bilateral Mammography 08/10/2023 11:2 0 AM EDT Narrative 08/28/2023 1:48 PM EDT ? [facility] ? [address] ?[place] [address] ? Mammography Report ? Signed ? Patient: Geri,Bria N ?MR#: [id number] ?? [id number] ? : 1980 ?Acct:[id number] ? Age/Sex: 42 / F ?ADM Date: 05/31/24 ? Loc: HO.MAMMO ? Attending Dr: Shruti Mccain MD ? Ordering Physician: Shruti Campos MD ?Re ?? sults: 1Negative ? Date of Service: 08/10/23 ?Follow Up: 1 Year From Orig ?? inal Mammogram ? Procedure(s): MM tomosynthesis screening BI ?? Accession Number(s): [id number] ? cc: Shruti Campos MD ? EXAMINATION: [...] 1344 ? DD/ 1120 ? TD/TT: ? Input Output Clerk: ? Procedure Note Donotuseinterpreter, Image - 08/28/2023 [facility] [address] [place] [address] Mammography Report Signed Patient: Bria Nevarez NMR#: [id number] : 1980Acct:[id number] Age/Sex: 42 / FADM Date: 08/10/23 Loc: [facility] Attending Dr: Shruti Mccain MD Ordering Physician: Shruti Campos sults: 1Negative Date of Service: 08/10/23Follow Up: 1 Year From Orig inal Mammogram Procedure(s): MM tomosynthesis screening BI Accession Number(s): [id number] cc: Shruti Campos MD EXAMINATION: MM SCREENING [...] in OV> 08/28/23 1344 DD/ 1120 TD/TT: Input Output Clerk: Shruti Handy MD IMG BI PROCEDURES Final Result * Hepatitis C Antibody with Reflex to HCV, RNA, Quantitative, Real-Time PCR (06/20/2023 1:38 PM EDT) Hepatitis C Antibody Nonreactive Nonreactive [facility] Comment:Antibodies to HCV no t detected; does not exclude early acuteHCV infection. Blood Venous blood specimen / Unknown 06/20/2023 1:38 PM EDT 06/20/2023 1:38 PM EDT Shruti Handy MD LAB BLOOD ORDERAB LES Final Result Performing Organization Address [facility] Co de Phone Number [facility] [address] [place] [phone] * HIV-1/2 Antigen and Antibodies, Fourth Generation, with Reflexes (06/20/2023 1:38 PM EDT) Pathologist [facility] HIV AB/AG Nonreactive Nonreactive [facility] Comment:HIV-1 p24 Ag and/or HIV-1/HIV-2 Ab not detected.A test result that is nonreactive does not exclude thepossibility of exposure to or infection with HIV-1 and/orHIV-2. Nonreactive results in this assay for individualswith prior exposure to HIV-1 and/or HIV-2 may be due toantigen and antibody levels that are below the limit ofdetection of this assay.The [employer] HIV Ag/Ab Combo assay result andsupplemental assay results should be interpreted inconjunction with the patient's clinical presentation,history and other laboratory results. If the results areinconsistent with clinical evidence, additional testing issuggested to confirm the result. Blood Venous blood specimen / Unknown 06/20/2023 1:38 PM EDT 06/20/2023 1:38 PM EDT us Shruti Handy MD LAB BLOOD ORDERAB LES Final Result Performing Organization Address City/[facility]/ZIP Co de Phone Number [facility] [address] [place] [phone] [phone] from Last 3 Months or Most Recently Relevant to Health Maintenance Insurance [facility] C3 Care Teams Account Executive Trainee Relationship Specialty Start Date End Date Shruti Campos MD [address] [place] [phone] PCP - General Internal Medicine 05/11/23
--- OUTSIDE RECORDS SUMMARY | 2024-07-23 13:20 | XMS_ITS | Encounter Summary ---
Author Organization [employer] Address [address] [place] [address] [address] [address] Care Team Providers Care Compo Conveyor Operator Name Role Phone Shruti Campos MD Primary Care Pro vider Reason for Visit * Reason Onset Date Comments Nurse Triage 04/01/2024 Encounter Details Date Type Department Care Team ([facility] st Contact Info) Description 04/01/2024 Telephone [facility] [address] [place] [phone] Shruti Campos MD [address] [place] [address] Nurse Triage Social History Tobacco Use Types [...] 1.5mg as prescribed at that time (only computer information systems professor found on chart). Pt reports thatwas an [...] to touch The caller accepted this outcome. [phone] documented in this encounter Plan of Treatment Upcoming Encounters Date Type Department Care Team (Late st Contact Info) Description 09/19/2024 1:00 PM EDT Office Visit [facility] [address] [place] [address] [phone] Shruti Campos MD [address] [place] [phone] documented as of this encounter Visit Diagnoses Not on filedocumented in this encounter Additional Health Concerns Assessment Noted Time PHQ-9 Depression Total Score: 18 024 12:25 PM EST documented as of this encounter Care Teams Compo Conveyor Operator Relationship Specialty Start Date End Date Shruti Campos MD [address] [place] [address] [phone] PCP - General Internal Medicine 05/11/23 documented as of this encounter
--- OUTSIDE RECORDS SUMMARY | 2024-07-23 13:20 | XMS_ITS | Clinical Summary ---
Author Organization [facility] Address [address] [place] [address] Care Team Providers Care Start Up Specialist Name Role Phone Unavailable Primary Care Provider [...] pain syndrome 01/20/2019 Episodic mood disorder 05/15/2018 [facility] (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 2017 PVD [...] absorb on its own. Follow up with [facility] in 2-3 weeks to discuss management of [...] scheduled for 05/01 at 11:15 AM at [facility] Essential hypertension 04/23/2017 Assessment & Plan [...] asymptomatic. Recommend follow up with Dr. Liriano -[facility] in 2-3 weeks after discharge. Patient to [...] PRN for SOB - Supplemental O2 by MN for O2 sats <92 - Dextromorphan PRN [...] Date Type Department Care Team Description 06/12/2024 [facility] 4th floor Cardiology Medicine [address] [place] [phone] Printed Circuit Board Layout Designer: Carmen Smith DO from Last 3 Months [...] Screening 03/12/2024 Influenza Vaccine (Season Ended) 2024 01/22/20 12, 11/29/2010 DTaP,Tdap,and Td Vaccines (3 - Td or Tdap) 04/16/2027 04/16/2017, 08/29/2011 RSV Vaccine (60+ years old a nd patients) (1 - 1-dose 75+ series) 11/07/2054 HIV Screening Completed 09/02/2010 Hepatitis C Screening Completed 09/16/2010 Hepatitis B Vaccines Discontinued Varicella Vaccines Discontinued Procedures * Due to [place] Tears for [place] law, this organization might not be sharing negative HIV tests. Procedure Name Priority Date/Time Associated Diagnosis Comments POCT HEMOGLOBIN A1C, CMG, NON-INTERFACED Routine 06/05/2022 11:58 AM EDT Type 2 diabetes mellitus with other specified complication, unspecified whether terminal worker insulin use BASIC METABOLIC PANEL STAT 06/02/2022 12:15 PM EDT [facility] W/HPV, MRNA E6/E7, REFLEX 16/18/45 Routine 08/08/2017 11:00 AM EDT Screening for malignant neoplasm of cervix Screening for human papillomavirus HEPATITIS C ANTIBODY, CONVERSION Routine 09/16/2010 12:21 PM EDT from Last 3 Months or Most Recently Relevant to Health Maintenance Results * Due to [place] Tears for Life law, this organization might not be sharing [...] - 145 mmol/L 06/02/2022 1:07 PM EDT [facility] K 3.9 3.5 - 5.3 mmol/L 06/02/2022 1:07 PM EDT [facility] Cl 105 98 - 107 mmol/L 06/02/2022 1:07 PM EDT [facility] CO2 26 22 - 30 mmol/L 06/02/2022 1:07 PM EDT [facility] BUN 13 7 - 18 mg/dL 06/02/2022 1:07 PM EDT [facility] Creatinine 0.98 0.60 - 1.30 mg/dL 06/02/2022 1:07 PM EDT [facility] Glucose 129(H) 70 - 99 mg/dL 06/02/2022 1:07 PM EDT [facility] Calcium 9.6 8.5 - 10.1 mg/dL 06/02/2022 1:07 PM EDT [facility] Anion Gap 2(L) 5 - 15 06/02/2022 1:07 PM EDT [facility] eGFR 74(L) >=90 mL/min/1. 73m2 06/02/2022 1:07 PM EDT [facility] Comment: Estimated Glomerular [...] BLOOD ORDERABLES Final Result Performing Organization Address City/State/[facility] Co de Phone Number [id number] [address], * (ABNORMAL) [facility] Pap w/HPV, mRNA E6/E7, Reflex 16/18/45 (08/08/2017 11:00 AM EDT) [facility] TIS, mRNA E6/E7 Jessica See Below(A) Add2paper Comment: TIS,mRNA E6/E7 JESSICA ?? CLINICAL INFORMATION: [...] evaluated with computer ? assisted technology. ?? MACHINE SILVER STRIPPER: ? MPG, CT(ASCP) ? CT screening location: [facility] ? [address] ? [place], [place] ??[address] ?? PATHOLOGIST: ? Maxwell Oreilly M.D. Direct , ? Board Certified in Anatomic and Clinical ? Pathology and Cytopathology ? (electronic signature) ? Consulting Pathologist ? [facility] ? [address] ? [place] [address] ? [phone] ?? HPV mRNA E6/E7 ? Not Detected ? REFERENCE RANGE: Not Detected ? This test was performed using the APTIMA HPV Assay ([employer]tMob.). ? This assay detects E6/E7 viral messenger [...] ORDER STELLA Final Result [facility] [address] Floor, [place] [address], [place] [phone] Diagonal View [address] Floor, [place] [address], [place] [phone] * HEPATITIS C ANTIBODY, CONVERSION (09/16/2010 12:21 PM EDT) Hepatitis C Antibody <0.02 <1.00 IV [facility] Comment: Negative Not infected with HCV, unless recent infection is suspected or other evidence exists to indicate HCV infection. 09/16/2010 12:2 1 PM EDT 09/16/2010 1:08 PM EDT us Paula Valdez MD LAB HISTORICAL RESULTS F inal Result [facility] [address] [place] [address], from Last 3 Months or Most Recently Relevant to Health Maintenance Insurance [facility] Advance Directives Documents on File Type Date Recorded Patient Wood Experimental Mechanic Expl 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
== END 2024-07-23 13:28 | disposition home or self-care (01) ==
LOC: HO.ACS 13:03
PROVIDERS: PCP Student in an Organized Health Care Education/Training Program; Visit Provider Internal Medicine Medical Oncology
DX: Z79.01 Long term (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 (principal)

== ENCOUNTER → 2024-07-23 13:03 | Outpatient (BNVA) | payer MEDICAID, SELFPAY | PROVIDERS: PCP Student in an Organized Health Care Education/Training Program; Visit Provider Internal Medicine Medical Oncology | DX: I48.0 Paroxysmal atrial fibrillation (principal); Z79.01 Long term (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; Z51.81 Encounter for therapeutic drug level monitoring | CPT/HCPCS: 85610; 99211 ==

== ENCOUNTER 2024-08-25 11:12 | Outpatient (AMB) | payer MEDICAID, SELFPAY ==
[2024-08-25 11:18] LABS: Prothrombin Time Whole Bld POC 47.6 sec (11.1-13.5)
--- NOTE | 2024-08-25 11:24 | MHC.OFFVISCO ---
Intake Intake Visit Reasons: Anticoagulation Allergies lisinopril Allergy (Mild, Verified 08/25/24 11:13) Cough Medication List - Last Reconciled 08/25/24 by Candi Stone RN albuterol sulfate 90 mcg/actuation (Ventolin HFA) 2 puffs inhalation Q6H PRN atorvastatin 10 mg PO DAILY bisacodyl 5 mg PO DAILY PRN cholecalciferol (vitamin D3) 50 mcg PO DAILY clindamycin phosphate 1% topical BID clonidine HCl 0.2 mg PO BID diltiazem HCl CD 120 mg PO DAILY docusate sodium 100 mg PO BID PRN ferrous gluconate 324 mg PO 3XW linaclotide (Linzess) 145 mcg PO QAM loratadine 10 mg PO DAILY lorazepam 0.5 mg PO QAM PRN losartan 25 mg PO DAILY metoprolol succinate ER 25 mg PO BID omeprazole 20 mg PO DAILY polyethylene glycol 3350 (Gavilax) 17 grams PO DAILY semaglutide (Ozempic) 1 mg subcut QWEEK warfarin 2 mg See Protocol PO DIRECTED Nursing Note INR: 4.0?out of therapeutic range of 2-3 Pt staes she started on a new cream for her feet and another cream for her face. She doesn't know the name but will bring them in next week. Medications and supplements reviewed Patient status: feels well Medications or supplements: as above Diet: usual diet for pt Denies any signs and symptoms of bleeding or clotting or unusual bruising Bleeding, bruising, clotting discussed Nutritional guidance given: have a serving of greens today Dose: hold today's dose of 2mg then 2mg daily F/U INR Date: 1 week Patient verbalizing understanding of instructions given. Anti-Coag Initial Assessment Social Hx Patient Tobacco Use Status: Former Tobacco user Smoking packs per day: 0.5 alcohol intake: never Cardiovascular Hx: HTN and Arrhythmias Lung Disease HX: Asthma Endocrine Hx: Diabetes Musculoskeletal Hx: Osteoporosis Blood Disorder Hx: Anemia and Hyperlipidemia Hx: Kidney Disease Neurological Hx: Migraines/Headaches Cancer HX: No Psych. Illness/Depression: Yes Coding Level of Care Code Est Patient Level 1 Diagnoses Current use of anticoagulant therapy Z79.01 Assessment & Plan Assessment & Plan (1) Current use of anticoagulant therapy: Code(s): Z79.01 - bed bug exterminator (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 Category: Medical
--- OUTSIDE RECORDS SUMMARY | 2024-08-25 12:46 | XMS_ITS | Encounter Summary ---
Author Organization [employer] Address [address] [facility] [address] [place] [address] Care Team Providers Care Fire Control Mechanic Name Role Phone Shruti Campos MD Primary Care Pro vider Reason for Visit * Reason Comments Med Change Request Encounter Details Date Type Department Care Team ([facility] Contact Info) Description 02/12/2024 Refill [facility] [address] [place] [address] Shruti Campos MD [address] [place] [address] Social History Tobacco Use Types Packs/Day Years [...] 09/19/2024 1:00 PM EDT Office Visit [facility] [address] [place] [address] Shruti Campos MD [address] [place] [address] documented as of this encounter Visit Diagnoses Not on filedocumented in this encounter Additional Health Concerns Assessment Noted Time PHQ-9 Depression Total Score: 18 024 12:25 PM EST documented as of this encounter Care Teams Fire Control Mechanic Relationship Specialty Start Date End Date Shruti Campos MD [address] [place] [address] PCP - General Internal Medicine 05/11/23 documented as of this encounter
== END 2024-08-25 11:38 | disposition home or self-care (01) ==
LOC: HO.ACS 11:12
PROVIDERS: PCP Student in an Organized Health Care Education/Training Program; Visit Provider Internal Medicine Medical Oncology
DX: Z79.01 Long term (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 (principal)

== ENCOUNTER → 2024-08-25 11:12 | Outpatient (BNVA) | payer MEDICAID, SELFPAY | PROVIDERS: PCP Student in an Organized Health Care Education/Training Program; Visit Provider Internal Medicine Medical Oncology | DX: I48.0 Paroxysmal atrial fibrillation (principal); Z79.01 Long term (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; Z51.81 Encounter for therapeutic drug level monitoring | CPT/HCPCS: 85610; 99211 ==

== ENCOUNTER 2024-10-20 14:10 | Outpatient (AMB) | payer MEDICAID, SELFPAY ==
[2024-10-20 14:23] LABS: Prothrombin Time Whole Bld POC 49.3 sec (11.1-13.5); ~PT, ~INR - Anti Coag Clinic 4.1 (0.9-1.1)
--- NOTE | 2024-10-20 14:31 | MHC.OFFVISCO ---
Intake Intake Visit Reasons: Anticoagulation Allergies lisinopril Allergy (Mild, Verified 10/20/24 14:15) Cough Medication List - Last Reconciled 10/20/24 by Candi Stone RN albuterol sulfate 90 mcg/actuation (Ventolin HFA) 2 puffs inhalation Q6H PRN atorvastatin 10 mg PO DAILY bisacodyl 5 mg PO DAILY PRN cholecalciferol (vitamin D3) 50 mcg PO DAILY clindamycin phosphate 1% topical BID clonidine HCl 0.2 mg PO BID diltiazem HCl CD 120 mg PO DAILY docusate sodium 100 mg PO BID PRN ferrous gluconate 324 mg PO 3XW linaclotide (Linzess) 145 mcg PO QAM loratadine 10 mg PO DAILY lorazepam 0.5 mg PO QAM PRN losartan 25 mg PO DAILY metoprolol succinate ER 25 mg PO BID omeprazole 20 mg PO DAILY polyethylene glycol 3350 (Gavilax) 17 grams PO DAILY semaglutide (Ozempic) 1 mg subcut QWEEK warfarin 2 mg See Protocol PO DIRECTED Nursing Note INR: 4.0 out of therapeutic range of 2-3 Medications and supplements reviewed Patient status: Has had a lot of stress lately Medications or supplements: noted change with weight loss medication. Now on Mounjaro. Diet: as jaime Denies any signs and symptoms of bleeding or clotting or unusual bruising Bleeding, bruising, clotting discussed Nutritional guidance given: to have a serving of greens today Dose: hold today's dose of 2mg and decrease tomorrow's dose to 1mg (2mg) then 2mg daily F/U INR Date: 1 week? Patient verbalizing understanding of instructions given. Anti-Coag Initial Assessment Social Hx Patient Tobacco Use Status: Former Tobacco user Smoking packs per day: 0.5 alcohol intake: never Cardiovascular Hx: HTN and Arrhythmias Lung Disease HX: Asthma Endocrine Hx: Diabetes Musculoskeletal Hx: Osteoporosis Blood Disorder Hx: Anemia and Hyperlipidemia Hx: Kidney Disease Neurological Hx: Migraines/Headaches Cancer HX: No Psych. Illness/Depression: Yes Coding Level of Care Code Est Patient Level 1 Diagnoses Current use of anticoagulant therapy Z79.01 Results AMB INR Fingerstick AMB INR Fingerstick 4.1 Last Edit by Candi Stone RN on 10/20/24 14:22 interface delay Assessment & Plan Assessment & Plan (1) Current use of anticoagulant therapy: Code(s): Z79.01 - [facility] (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 Category: Medical Medications: New tirzepatide (Mounjaro) 7.5 mg subcut QWEEK
--- OUTSIDE RECORDS SUMMARY | 2024-10-20 14:39 | XMS_ITS | Patient Health Record ---
Author Organization [facility] Address [address] [place] [address] Care Team Providers Care Railroad Conductor Name Role Phone Ellis eLe Primary Care Provider UnavailTom Salguero Unavailable Allergies Allergen (clinical drug ingredient) Drug/Non Drug Allergy documented on EMR Reaction Allergy Type Onset Date Status lisinopril Lisinopril cough Drug Allergy Activ e Reason For Referral No Information Medications Medication SIG (Take, Route, Frequency, Duration) Notes Start Date End Date Status cloNIDine HCl 0.2 MG 1 tablet Orally thr ee times a day Active amLODIPine Besylate 10 MG 1 tablet Orally Once a day Active Omeprazole 20 MG 1 capsule Orally prn Active glipiZIDE ER 2.5 MG TK 1 T PO QD WITH BR E Oral; Duration: 30 Active ProAir HFA 108 (90 Base) MCG/ACT 2 puffs as needed Inhalation every 4 hrs Active dilTIAZem HCl ER Beads 240 MG TK ONE C PO D Oral Active Losartan Potassium 25 MG 1 tablet Orally Once a day Active Warfarin Sodium 2.5 MG 1 tablet Orally O nce a day (pcp) Active Social History Tobacco Use: Social History Observation Description Date Details (start date - stop date) Former Smoker NA - NA Tobacco Use/Smoking Question Answer Notes Are you [...] day s for 10 years, quit 04/2015 Problems Problem Type SNOMED Code ICD Code Onset Dates Problem Status W/U Status Risk Notes Problem Paroxysmal atrial fibrillation (586475728) Paroxysmal atrial fibrillation (I48.0) Active confirmed Problem Mild intermittent asthma (264812609) Mild intermittent asthma, uncomplicated (J45.20) Active confirmed 2 Problem Obstructive sleep apnea syndrome (disorder) (32688909) Obstructive sleep apnea (adult) (pediatric) (G47.33) Active confirmed Problem Morbid obesity (disorder) (200909789) Morbid (severe) obesity due to excess calories (E66.01) Active confirmed Problem Adjustment disorder with anxiety (02613580) Adjustment disorder with anxiety (F43.22) Active confirmed Problem Anxiety (22263525) Anxiety (F41.9) Active confirmed Problem Essential hypertension (14087469) Essential hypertension (I10) Active confirmed Problem Essential hypertension (14901069) Accelerated hypertension (I10) Active confirmed 2 Problem Obstructive sleep apnea syndrome (23525258) ANGELA (obstructive sleep apnea) (G47.33) Active confirmed Problem Atrial fibrillation (72838302) Atrial fibrillation, unspecified type (I48.91) Active confirmed Plan Of Treatment Pending Test Test Name Order Date [facility] 06/11/2013 [facility] 04/24/2017 Future Test Test Name Order Date Chem 7 (BUN, Cr, Lytes, Glu) 03/16/2017 Insurance Providers Payer Name Payer Address Payer Phone Subscriber Number Group Number Insured Name Patient Relationship to Insured Coverage Start Date Coverage End Date [facility] [address] [place] [id number] Bira Morrison Self - patient is the insured 3 Medical (General) History Medical History History ICD Code preserved LV function with EF 65-70% by echo Apr paroxysmal atrial fibrillati on, rate conrol/AC, [id number] = 2, HTN, female moderate to severe concentric LVH by ech o Apr resistant hypertension asthma obstructive sleep apnea obesity anxiety ruptured ovarian cyst/hemato ma peritoneum requiring reversal of oral anticoagulation July 2017
--- OUTSIDE RECORDS SUMMARY | 2024-10-20 14:39 | XMS_ITS | Clinical Summary ---
Author Organization [facility] Address [address] [place] [address] Care Team Providers Care Actuarial Analyst Name Role Phone Lisette Murillo Shelia Primary Care Provider [phone] Allergies No known active allergies Medications Oxycodone-Acetamin [...] MG Tab 1 TABLET twice daily Active Rdxmxxtvty-ZRHD-Xr ffeine (FIORICET) 50-300-40 MG Cap 1 OR [...] - 2023-2 5 season) 2023 Influenza (#1) 2024 Zoster (Shingrix) (1 of 2) 11/07/2029 Hepatitis C Screening Completed 08/24/2014 HPV Vaccine (No Doses Required) Completed Hep A Aged Out No longer eligi [...] complete this topic Procedures * Due to [place] [employer] law, this organization might not be sharing [...] to Health Maintenance Results * Due to [place] [employer] law, this organization might not be sharing negative HIV tests. * (ABNORMAL) [facility] FPGS,HPV,CT/GC PANEL (08/24/2014 4:01 PM EDT) Clinical information NONE GIVEN [facility] Comment:{CLINICAL INFORMATIO N: {[id number]) Date last menstrual period [id number] [facility] Comment:{LMP: {[id number]) Date of previous PAP smear NONE GIVEN [facility] Comment:{PREV. PAP: {[id number]) Date of previous biopsy NONE GIVEN [facility] Comment:{PREV. BX: {[id number]) Specimen source (Cvx/Vag) Cervix, Endocervix [facility] Comment:{SOURCE: {[id number]) Statement of Adequacy (Cvx/Vag) Satisfactory for evaluation. Endocervical/hearn sformation zone component absent. [facility] Comment:{STATEMENT OF ADEQUA CY: {[id number]) General categories (Cvx/Vag) EPITHELIAL CELL ABNORMALITY(A) [facility] Comment:{GENERAL CATEGORIZAT ION: {[id number]) Cytology, Pap Smear Low Grade Squamous Intraepithelial Lesion (LSIL)(A) [facility] Comment:{INTERPRETATION/RESU LT: {[id number]) Cytology study comment (Cvx/Vag) This Pap test has been evaluated with computer assisted technology. [facility] Comment:{COMMENT: {[id number]) Pit Laborer (Cvx/Vag) MPG, CT(ASCP) [facility] Comment:{CODING TECHNICIAN: { [id number]) Pathologist (Cvx/Vag) Lorena Mcgrath M.D., Board Certified in Anatomic and Clinical Pathology (electronic signature) Consulting Pathologist [facility] [address] [place] [address] [facility] Comment:{PATHOLOGIST: {[id number]) HPV MRNA E6/E7 Detected(A) Not Detected [facility] Comment: {HPV mRNA E6/E7, [facility]PATH VIAL {[id number]) This test was performed using the APTIMA HPV Assay ([employer] This assay detects E6/E7 viral messenger RNA (mRNA) from 14 high-risk HPV types (16,18,31,33,35,39,45,51,52,56,58,59,66,68). The analytical performance characteristics of this assay, when used to test SurePath specimens, have been determined by [facility] Chlamydia trachomatis rRNA NOT DETECTED NOT DETECTED [facility] Comment:{CHLAMYDIA TRACHOMAT IS RNA, TMA {[id number]) Neisseria Gonorrhoeae rRNA NOT DETECTED NOT DETECTED [facility] Comment:{NEISSERIA GONORRHOE AE RNA, TMA {[id number]) COMMENT SEE NOTE [facility] Comment: {COMMENT {[id number]) This test was performed using the APTIMA COMBO2 Assay ([employer] The analytical performance characteristics of this assay, when used to test [facility] specimens have been determined by [facility]. 08/24/2014 4:01 PM EDT 08/25/2014 1:12 AM EDT Narrative Resulting Agency Comment [id number] Estephania Skeltno [facility]-INTERFACED Aissatou l Result Performing Organization Address [place] Co de Phone Number [facility] [address] [place] [address] * HEPATITIS C ANTIBODY, SERUM (08/24/2014 1:40 PM EDT) Hepatitis C virus Ab NON-REACTI VE NON-REACT LEIGH ANN [facility] Comment:{HEPATITIS C ANTIBOD Y {[id number]) Hepatitis C virus Ab Signal/Cutoff 0.07 <1.00 [facility] Comment:{SIGNAL TO CUT-OFF { [id number]) 08/24/2014 1:40 PM EDT 08/25/2014 12:58 AM EDT Narrative Resulting Agency Comment [id number] Estephania Skelton [facility] Final Res ult Performing Organization Address [place] de Phone Number [facility] [address] [place] [address] from Last 3 Months or Most Recently Relevant to Health Maintenance Insurance MEDICAID * Guarantor: [id number] [employer] Account Type Relation to Patient Date of Phone Billing Address Worker's Comp [address] [place] [address] WORKERS COMPENSATION Care Teams Actuarial Analyst Relationship Specialty Start Date End Date Lisette Murillo [address] [place] [address] PCP - General Internal Medicine 11/20/14
--- OUTSIDE RECORDS SUMMARY | 2024-10-20 14:39 | XMS_ITS | Clinical Summary ---
Author Organization [facility] Address [address] [place] [address] Care Team Providers Care Crayon Painter Name Role Phone Unavailable Primary Care Provider [...] pain syndrome 01/20/2019 Episodic mood disorder 05/15/2018 ocean transportation intermediary (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 2017 PVD (peripheral [...] absorb on its own. Follow up with ANTICHECKING IRON WORKER in 2-3 weeks to discuss management of [...] scheduled for 05/01 at 11:15 AM at [facility] Essential hypertension 04/23/2017 Assessment & Plan (07/15/2017 [...] asymptomatic. Recommend follow up with Dr. Liriano -ANTICHECKING IRON WORKER in 2-3 weeks after discharge. Patient to [...] PRN for SOB - Supplemental O2 by DC for O2 sats <92 - Dextromorphan PRN [...] Encounters Date Type Department Care Team Description 09/10/2024 Telephone [facility] [address] [place] [address] Corporation Lawyer: Mckayla Mcgee MA from Last 3 Months Immunizations Immunization Administration [...] 90 08/24/2022 1:46 PM EDT Temperature 36.7 C (98 F) 08/24/2022 1:46 PM EDT Respiratory Rate 16 [...] Health Sofia ual Screening 03/12/2024 Influenza Vaccine (#1) 2024 01/22/2012, 2010 DTaP,Tdap,and Td Vaccines (3 - Td or Tdap) 04/16/2027 04/16/2017, 08/29/2011 RSV Vaccine (60+ years old a nd patients) (1 - 1-dose 75+ series) 11/07/2054 HIV Screening Completed 09/02/2010 Hepatitis C Screening Completed 09/16/2010 Hepatitis B Vaccines Discontinued Varicella Vaccines Discontinued Procedures * Due to [place] [employer] law, this organization might not be sharing negative HIV tests. Procedure Name Priority Date/Time Associated Diagnosis Comments POCT HEMOGLOBIN A1C, CMG, NON-INTERFACED Routine 06/05/2022 11:58 AM EDT Type 2 diabetes mellitus with other specified complication, unspecified whether penitentiary insulin use BASIC METABOLIC PANEL STAT 06/02/2022 12:15 PM EDT [facility] W/HPV, MRNA E6/E7, REFLEX 16/18/45 Routine 08/08/2017 11:00 AM EDT Screening for malignant neoplasm of cervix Screening for human papillomavirus HEPATITIS C ANTIBODY, CONVERSION Routine 09/16/2010 12:21 PM EDT from Last 3 Months or Most Recently Relevant to Health Maintenance Results * Due to [place] [employer] law, this organization might not be sharing [...] - 18 mg/dL 06/02/2022 1:07 PM EDT [facility] Creatinine 0.98 0.60 - 1.30 mg/dL 06/02/2022 1:07 PM EDT [facility] Glucose 129(H) 70 - 99 mg/dL 06/02/2022 1:07 PM EDT [facility] Calcium 9.6 8.5 - 10.1 mg/dL 06/02/2022 1:07 PM EDT [facility] Anion Gap 2(L) 5 - 15 06/02/2022 1:07 PM EDT [facility] eGFR 74(L) >=90 mL/min/1. 73m2 06/02/2022 1:07 PM EDT [facility] Comment: Estimated Glomerular [...] Vazquez MD LAB BLOOD ORDERABLES Final Result [address] [address], [place] * (ABNORMAL) [facility] Pap w/HPV, mRNA E6/E7, Reflex 16/18/45 (08/08/2017 11:00 AM EDT) [facility] TIS, mRNA E6/E7 Jessica See Below(A) Tip or Skip Comment: TIS,mRNA E6/E7 JESSICA CLINICAL INFORMATION: None given LMP: 07/11/17 PREV. PAP: 2010 PAP LGSIL PREV. BX: NONE GIVEN SOURCE: Cervix, Endocervix STATEMENT OF ADEQUACY: Satisfactory for evaluation. Endocervical/transformation zone component present. GENERAL CATEGORIZATION: EPITHELIAL CELL ABNORMALITY INTERPRETATION/RESULT: Low Grade Squamous Intraepithelial Lesion (LSIL) COMMENT: This Pap test has been evaluated with computer assisted technology. HOUSING MANAGEMENT OFFICER: SHARI ALMONTE(ASCP) CT screening location: [place] [address] PATHOLOGIST: Maxwell Oreilly M.D. Direct , Board Certified in Anatomic and Clinical Pathology and Cytopathology (electronic signature) Consulting Pathologist [facility] [address] [place] [address] HPV mRNA E6/E7 Not Detected REFERENCE RANGE: Not Detected This test was performed using the APTIMA HPV Assay ([employer] This assay detects E6/E7 viral messenger RNA (mRNA) from 14 high-risk HPV types (16,18,31,33,35,39,45,51,52,56,58,59,66,68). EXPLANATORY NOTE: The Pap is a screening test for cervical cancer. It is not a diagnostic test and is subject to false negative and false positive results. It is most reliable when a satisfactory sample, regularly obtained, is submitted with relevant clinical findings and history, and when the Pap result is evaluated along with historic and current clinical information. Swab (specimen) Cervix uteri structure / Unknown 08/08/2017 11:00 AM EDT Matthew Pryor MD LAB [facility] ORDER STELLA Final Result [facility] [address] [facility] [address] [facility], [place] [address], [place] [phone] [employer] [facility] [address] [facility] [address]rd [address], [place] [address], [place] [phone] * HEPATITIS C ANTIBODY, CONVERSION (09/16/2010 12:21 PM EDT) Hepatitis C Antibody <0.02 <1.00 IV [facility] Comment: Negative Not infected with HCV, unless recent infection is suspected or other evidence exists to indicate HCV infection. 09/16/2010 12:2 1 PM EDT 09/16/2010 1:08 PM EDT us Paula Valdez MD LAB HISTORICAL RESULTS F inal Result [facility] [address] [place] [address], from Last 3 Months or Most Recently Relevant to Health Maintenance Insurance [facility] Advance Directives Documents on File Type Date Recorded Patient Mat Worker Expl 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 Name Relationship Healthcare Agent Relationship Communication Shruti Geri Mother Next of Kin Clayton Cooper Significant Other Next of Kin
--- OUTSIDE RECORDS SUMMARY | 2024-10-20 14:39 | XMS_ITS | Encounter Summary ---
Author Organization [employer] Address [address] [facility] [address]t [place] [address] Care Team Providers Care Placement Director Name Role Phone Shruti Campos MD Primary Care Pro vider Reason for Visit * Reason Comments Med Change Request Encounter Details Date Type Department Care Team ([facility] Contact Info) Description 02/12/2024 Refill [facility] [address] [place] [address] Shruti Campos MD [address] [place] [address] Social History Tobacco Use Types Packs/Day Years [...] Care Team (Late st Contact Info) Description 12/18/2024 1:30 PM EDT Office Visit [facility] [address] [place] [address] Shruti Campos MD [address] [place] [phone] documented as of this encounter Visit Diagnoses Not on filedocumented in this encounter Additional Health Concerns Assessment Noted Time PHQ-9 Depression Total Score: 18 024 12:25 PM EST documented as of this encounter Care Teams Placement Director Relationship Specialty Start Date End Date Shruti Campos MD [address] [place] [address] PCP - General Internal Medicine 05/11/23 documented as of this encounter
== END 2024-10-20 14:34 | disposition home or self-care (01) ==
LOC: HO.ACS 14:10
PROVIDERS: PCP Student in an Organized Health Care Education/Training Program; Visit Provider Internal Medicine Medical Oncology
DX: Z79.01 Long term (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 (principal)

== ENCOUNTER → 2024-10-20 14:10 | Outpatient (BNVA) | payer MEDICAID, SELFPAY | PROVIDERS: PCP Student in an Organized Health Care Education/Training Program; Visit Provider Internal Medicine Medical Oncology | DX: Z79.01 Long term (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 (principal) | CPT/HCPCS: 85610; 99211 ==

== ENCOUNTER 2024-10-26 23:47 | Emergency (ER) | payer MEDICAID, SELFPAY ==
--- NOTE | ~2024-10-26 | US_ITS ---
CLINICAL HISTORY: RLE pain, +Homans sign eval for DVT Venous duplex ultrasound right lower extremity Comparison: None provided Findings: The visualized deep veins are fully compressible with normal Doppler color flow and spectral tracings. No popliteal cyst. IMPRESSION: 1. Negative for right lower extremity deep vein thrombosis. This document has been electronically signed by: Farzaneh Plata MD on 10/27/2024 07:22:39
[2024-10-27 00:15] VITALS: BP 136/70; PULSE 91; RESP 16; TEMP 36.2; O2SAT 97; BMI 48.1
[2024-10-27 01:46] LABS: MANUAL DIFF FLAG NO
[2024-10-27 01:47] LABS: Hematocrit 33.5 % (37.0-47.0); Hemoglobin 10.6 g/dl (12.0-16.0); Imm Gran Abs Auto 0.03 X10*3/uL (0.00-0.03); Imm Gran Pct Auto 0.2 % (0.0-0.4); Lymphocytes Absolute Auto 3.4 X10*3/uL (1.2-4.9); Mean Corpuscular HGB Conc 31.6 g/dl (31.0-35.0); Mean Corpuscular Hemoglobin 23.7 pg (27.0-33.0); Mean Corpuscular Volume 74.9 fL (80.0-98.0); NRBC Abs Auto 0.000 X10*3/uL (0.0-0.012); NRBC Pct Auto 0.0 /100WBC (0.0-0.2); Platelet Count 277 X10*3/uL (160-400); Red Blood Count 4.47 X10*6/uL (4.20-5.50); White Blood Count 12.8 X10*3/uL (4.8-10.8)
[2024-10-27 01:53] LABS: INTERNATIONAL NORM RATIO 2.7 (0.9-1.1); Prothrombin Time 31.1 SEC (10.9-12.4)
[2024-10-27 02:04] LABS: Alanine Aminotransferase 48 U/L (0-31); Albumin Level 4.0 g/dL (3.5-5.0); Alkaline Phosphatase 64 U/L (39-117); Anion Gap 14 (12-20); Aspartate Amino Transferase 49 U/L (5-31); Blood Urea Nitrogen 21 mg/dL (9-16); Calcium 9.1 mg/dL (8.4-10.2); Carbon Dioxide 22 mmol/L (22-29); Chloride 108 mmol/L (96-108); Creatinine Clr Calc Pharmacy 87.7; Estimated Glomerular Filt Rate 55; Magnesium 1.8 mg/dL (1.6-2.6); Potassium 3.9 mmol/L (3.3-5.1); Sodium 140 mmol/L (135-145); Total Protein 7.8 g/dL (6.5-8.0)
--- NOTE | 2024-10-27 04:40 | PC.NURSE ---
Pt standing at recliner, reporting severe cramping to right lower leg. Pts leg wrapped in a heated blanket and hot packs, pt reports some relief of pain. Awaiting primary MD aguilar.
--- NOTE | 2024-10-27 05:45 | PC.NURSE ---
at bedside for primary eval.
--- NOTE | 2024-10-27 05:51 | ED.EXTPRO ---
HPI - Extremity Problem General Chief complaint: Extremity Problem Stated complaint: r calf pain Time Seen by Provider: 10/27/24 04:09 Source: patient Mode of arrival: ambulatory Limitations: no limitations History of Present Illness ED Provider: Dr. Sherri Moya HPI Narrative: 43-year-old female with history of atrial fibrillation on warfarin, chronic pain and muscle spasms, CAD presenting with right lower extremity pain and spasm ongoing for the last 24 hours or so. Patient states that she has history of muscle spasms in her legs bilaterally but has had worsening spasms over the last 24 hours or so. Admits the spasms last for minutes at a time and are recurrent without provocation. Pain radiates from the back of her knee down to her ankle. No skin changes, fever, significant swelling of the legs. Has been taking warfarin as prescribed. Last INR was greater than 4. Has not taken anything at home for pain including muscle relaxers because she does not like the way muscle relaxers make her feel. Denies chest pain or shortness of breath. Uses a cane to ambulate due to a torn ACL in the left knee. Has never had issues with her right knee. Related Data Home Medications ?Medication ?Instructions ?Recorded ?Confirmed albuterol sulfate 90 mcg/actuation 2 puff inhalation Q6H PRN wheezing 06/01/23 10/20/24 aerosol inhaler (Ventolin HFA) bisacodyl 5 mg tablet,delayed 5 mg PO DAILY PRN constipation 06/01/23 10/20/24 release clonidine HCl 0.2 mg tablet 0.2 mg PO BID 06/01/23 10/20/24 diltiazem HCl 120 mg 120 mg PO DAILY 06/01/23 10/20/24 capsule,extended release 24 hr docusate sodium 100 mg capsule 100 mg PO BID PRN constipation 06/01/23 10/20/24 loratadine 10 mg tablet 10 mg PO DAILY 06/01/23 10/20/24 losartan 25 mg tablet 25 mg PO DAILY 06/01/23 10/20/24 omeprazole 20 mg capsule,delayed 20 mg PO DAILY 06/01/23 10/20/24 release polyethylene glycol 3350 17 17 g PO DAILY 06/01/23 10/20/24 gram/dose oral powder (Gavilax) warfarin 2 mg tablet 2 mg PO DIRECTED 06/01/23 10/20/24 atorvastatin 10 mg tablet 10 mg PO DAILY 08/08/23 10/20/24 cholecalciferol (vitamin D3) 50 50 mcg PO DAILY 08/08/23 10/20/24 mcg (2,000 unit) capsule ferrous gluconate 324 mg (38 mg 324 mg PO 3XW 08/08/23 10/20/24 iron) tablet metoprolol succinate 25 mg 25 mg PO BID 08/08/23 10/20/24 tablet,extended release 24 hr lorazepam 0.5 mg tablet 0.5 mg PO QAM PRN 11/01/23 10/20/24 linaclotide 145 mcg capsule 145 mcg PO QAM 11/26/23 10/20/24 (Linzess) clindamycin phosphate 1 % topical topical BID 08/25/24 10/20/24 gel tirzepatide 7.5 mg/0.5 mL 7.5 mg subcut QWEEK 10/20/24 10/20/24 subcutaneous pen injector (Devin) Previous Rx's ?Medication ?Instructions ?Recorded magnesium oxide 200 mg PO BID PRN muscle spasm #20 10/27/24 tabs Allergies Allergy/AdvReac Type Severity Reaction Status Date / Time lisinopril Allergy Mild Cough Verified 10/20/24 14:15 duloxetine (From Cymbalta) AdvReac Palpitation Verified 10/27/24 00:18 s Review of Systems Review of Systems: As per HPI, full review of systems performed and negative but for the above mentioned pertinent positives and negatives. [facility] Past Medical History Medical History ANGELA (obstructive sleep apnea) Bilateral carpal tunnel syndrome Lumbosacral radiculopathy Cervical radiculopathy Morbid (severe) obesity due to excess calories Mild intermittent asthma, uncomplicated Acute glaucoma of left eye Chronic pain syndrome [facility] (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 Asymptomatic PVD (peripheral vascular disease) Surgical History Status post laparoscopic sleeve gastrectomy Family History Family History Father Stroke Mother No problems noted. Social History Social History Housing: House Housing Other:: [employer] AT HOME, LIVES WITH BOYFRIEND, SON AND BOYFRIEND'S SON Unable to assess alcohol history related to: Unknown Alcohol intake: never Patient Tobacco Use Status: Former Tobacco user Cigarette Packs Per Day: 0.5 Smoked in Last 30 Days: No Use of substances other than those prescribed or required for medical reasons: Unknown Advance Directives: No Advance Directives Information Provided: No Do you have a plan to hurt others: No Plan Current occupational status: unemployed Current occupation: rt handed Current occupational exposures/hazards: No Physical Exam Exam: Exam: GENERAL: Chronically ill-appearing, conversant, no acute distress. SKIN: Normal skin color for ethnicity, warm, dry, no rashes noted. HEENT: Normocephalic, atraumatic, no stridor, posterior oropharynx nonerythematous, EOMI. NECK: Soft, supple, full ROM, midline structures nontender, no step-offs, no deformities, no lymphadenopathy. CHEST: Heart regular rate and rhythm, no murmurs, symmetric chest rise and fall. PULMONARY: Clear to auscultation bilaterally, no labored breathing, no wheezes/rhales/ rhonchi. ABDOMINAL: Soft, nondistended, nontender, positive bowel sounds in all quadrants. : Deferred. MUSCULOSKELETAL: Normal tone, full range of motion, no deformities, 1+ pitting edema bilateral lower extremities is equal, no erythema, joint effusion of the right knee, positive Homans sign on the right, neurovascularly intact distally. NEURO: Alert and oriented to person, CN II through XII intact, no focal neurologic deficits. PSYCHIATRIC: Flat affect, fluid speech, appropriate demeanor. Vital Signs: Vital Signs: Last Vital Signs Temp 97.1 F 10/27/24 00:15 Pulse 91 10/27/24 00:15 Resp 16 10/27/24 00:15 BP 136/70 10/27/24 00:15 Pulse Ox 97 10/27/24 00:15 O2 Del Method Room Air 10/27/24 00:15 BMI result Body Mass Index 48.1 Medications Administered Discontinued Medications Generic Name Dose Route Start Last Admin Trade Name Freq PRN Reason Stop Dose Admin Acetaminophen 975 mg 10/27/24 05:49 10/27/24 06:30 Acetaminophen 325 Mg Tablet PO 10/27/24 05:50 975 mg ONCE ONE Administration Magnesium Oxide 400 mg 10/27/24 05:49 10/27/24 06:30 Magnesium Oxide 400 Mg Tablet PO 10/27/24 05:50 400 mg ONCE ONE Administration Medical Decision Making Medical Decision Making [facility] Narrative: Patient presents today with right lower extremity pain and swelling. Differential diagnosis includes heart failure, specifically right-sided heart failure, liver disease or renal dysfunction such as nephrotic syndrome, venous insufficiency, infection, blood clot, among others. Low suspicion for blood clot although it is certainly possible. She could be failing warfarin treatment. Less likely seeing as how our most recent INR was supratherapeutic at 4. Regardless, she does have a positive Homans sign and I will order an ultrasound to evaluate for DVT. Medication with Tylenol and magnesium for muscle spasm. She does not want any muscle relaxers as they tend to make her feel drowsy. Otherwise no evidence of skin infection, vascular insufficiency. Slightly elevated white blood cell count without a left shift is nonspecific. Could be reactionary due to pain in that leg. Slight dehydration with a BUN to creatinine ratio that is slightly higher than 20. She is able to tolerate oral intake in the emergency department. No evidence of DVT on ultrasound. Patient is ambulatory in the emergency department without assistance. Discussed muscle spasms and importance of follow up with primary care. Discussed return precautions at length. Discharged home in stable condition. Differential Diagnosis Differential Diagnoses: The differential diagnosis associated with the presentation includes (As above) Admission/Observation Consideration of admission/observation: Escalation of care including admission/observation considered Lab Data [facility] Lab Attestation statement: I reviewed the patient's lab results. 10/27/24 01:40 10/27/24 01:40 Labs: Lab Results 10/27/24 Range/Units 01:40 WBC 12.8 H (4.8-10.8) X10*3/uL RBC 4.47 (4.20-5.50) X10*6/uL Hgb 10.6 L (12.0-16.0) g/dl Hct 33.5 L (37.0-47.0) % MCV 74.9 L (80.0-98.0) fL MCH 23.7 L (27.0-33.0) pg MCHC 31.6 (31.0-35.0) g/dl RDW 15.6 (11.0-16.0) % Plt Count 277 (160-400) X10*3/uL MPV 11.3 (9.4-12.3) fL Immature Gran % (Auto) 0.2 (0.0-0.4) % Neut % (Auto) 62.7 (45-73) % Lymph % (Auto) 26.1 (20-40) % Millard % (Auto) 7.2 (2-11) % Eos % (Auto) 3.4 (0-4) % Baso % (Auto) 0.4 (0-2) % Lymph # (Auto) 3.4 (1.2-4.9) X10*3/uL Millard # (Auto) 0.9 (0.1-1.2) X10*3/uL Eos # (Auto) 0.4 (0.0-0.4) X10*3/uL Baso # (Auto) 0.1 (0.0-0.2) X10*3/uL Abs Immat Gran (auto) 0.03 (0.00-0.03) X10*3/uL Absolute Neuts (auto) 8.0 (2.0-8.3) x10*3/uL Absolute Nucleated RBC 0.000 (0.0-0.012) X10*3/uL Nucleated RBC % (auto) 0.0 (0.0-0.2) /100WBC PT 31.1 H (10.9-12.4) SEC INR 2.7 H (0.9-1.1) Sodium 140 (135-145) mmol/L Potassium 3.9 (3.3-5.1) mmol/L Chloride 108 (96-108) mmol/L Carbon Dioxide 22 (22-29) mmol/L Anion Gap 14 (12-20) BUN 21 H (9-16) mg/dL Creatinine 1.08 (0.5-1.4) mg/dL Estim Creat Clear Calc 87.7 Estimated GFR 55 Random Glucose 118 H (60-115) mg/dL Calcium 9.1 (8.4-10.2) mg/dL Magnesium 1.8 (1.6-2.6) mg/dL Total Bilirubin 0.2 (0.0-1.0) mg/dL AST 49 H (5-31) U/L ALT 48 H (0-31) U/L Alkaline Phosphatase 64 (39-117) U/L Total Protein 7.8 (6.5-8.0) g/dL Albumin 4.0 (3.5-5.0) g/dL Radiology Impression Discussion of test interpretation with radiology: I have reviewed the radiologist's reading. Discharge Plan Discharge Clinical Impression: Acute pain of right lower extremity, Muscle spasm of right calf Patient Disposition: Home, Self-Care Instructions: Muscle Spasm (ED), Leg Cramps (ED) Additional Instructions: Return to the emergency department with any new or worsening symptoms including: Worsening pain in your leg despite magnesium supplementation, fevers greater than 100?, redness that tracks away from your leg, worsening swelling, any new symptom that concerns you. Follow-up with your primary care doctor as soon as possible. Prescriptions: New magnesium oxide 200 mg magnesium tablet 200 mg PO BID PRN (Reason: muscle spasm) Qty: 20 0RF No Action albuterol sulfate [Ventolin HFA] 90 mcg/actuation HFA aerosol inhaler 2 puff inhalation Q6H PRN (Reason: wheezing) clonidine HCl 0.2 mg tablet 0.2 mg PO BID diltiazem HCl 120 mg capsule,extended release 24hr 120 mg PO DAILY polyethylene glycol 3350 [Gavilax] 17 gram/dose powder 17 g PO DAILY docusate sodium 100 mg capsule 100 mg PO BID PRN (Reason: constipation) omeprazole 20 mg capsule,delayed release(DR/EC) 20 mg PO DAILY losartan 25 mg tablet 25 mg PO DAILY warfarin 2 mg tablet 2 mg PO DIRECTED Protocol: Dose Management Condition: Sunday (Week One) Dose/Route: 2 mg Instruction: 1 x 2 mg tablet Condition: Sunday Dose/Route: 0 mg Instruction: 0 tablets Condition: Sunday Dose/Route: 1 mg Instruction: 0.5 x 2 mg tablets Condition: Sunday Dose/Route: 2 mg Instruction: 1 x 2 mg tablet Condition: Dose/Route: 2 mg Instruction: 1 x 2 mg tablet Condition: Sunday Dose/Route: 2 mg Instruction: 1 x 2 mg tablet Condition: Sunday Dose/Route: 2 mg Instruction: 1 x 2 mg tablet Condition: Sunday (Week Two) Dose/Route: 2 mg Instruction: 1 x 2 mg tablet Condition: Sunday Dose/Route: 2 mg Instruction: 1 x 2 mg tablet Condition: Sunday Dose/Route: 2 mg Instruction: 1 x 2 mg tablet Condition: Sunday Dose/Route: 2 mg Instruction: 1 x 2 mg tablet Condition: Dose/Route: 2 mg Instruction: 1 x 2 mg tablet Condition: Sunday Dose/Route: 2 mg Instruction: 1 x 2 mg tablet Condition: Sunday Dose/Route: 2 mg Instruction: 1 x 2 mg tablet Protocol Text: Adjustment Start Date: Sunday10/20/24 INR Value: 4.1 INR Date: 10/20/24 Recheck Date: 10/27/24 bisacodyl 5 mg tablet,delayed release (DR/EC) 5 mg PO DAILY PRN (Reason: constipation) loratadine 10 mg tablet 10 mg PO DAILY metoprolol succinate 25 mg tablet extended release 24 hr 25 mg PO BID cholecalciferol (vitamin D3) 50 mcg (2,000 unit) capsule 50 mcg PO DAILY ferrous gluconate 324 mg (38 mg iron) tablet 324 mg PO 3XW atorvastatin 10 mg tablet 10 mg PO DAILY lorazepam 0.5 mg tablet 0.5 mg PO QAM PRN Linzess 145 mcg capsule 145 mcg PO QAM clindamycin phosphate 1 % gel topical BID Mounjaro 7.5 mg/0.5 mL pen injector 7.5 mg subcut QWEEK Print Language: Turkmen
--- NOTE | 2024-10-27 06:24 | PC.NURSE ---
At bedside to medicate, pt noted to be in U/S at this time.
--- NOTE | 2024-10-27 06:45 | PC.NURSE ---
MD at bedside to discuss plan of care.
[2024-10-27 07:21] VITALS: BP 124/72; PULSE 88; RESP 16; TEMP -17.7; TEMP 0; O2SAT 98
== END 2024-10-27 07:22 | disposition home or self-care (01) ==
PROVIDERS: Emergency Provider Emergency Medicine; PCP Student in an Organized Health Care Education/Training Program
DX: M79.661 Pain in right lower leg (principal); M62.831 Muscle spasm of calf; M79.662 Pain in left lower leg; I48.91 Unspecified atrial fibrillation; Z79.01 Long term (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; G47.33 Obstructive sleep apnea (adult) (pediatric)
CPT/HCPCS: 36415; 80053; 83735; 85025; 85610; 93971; 99284

== ENCOUNTER → 2024-10-27 05:49 | Outpatient (BNV) | payer MEDICAID, SELFPAY | PROVIDERS: Emergency Provider Emergency Medicine; PCP Student in an Organized Health Care Education/Training Program; Visit Provider Radiology Diagnostic Radiology | DX: M79.661 Pain in right lower leg (principal) | CPT/HCPCS: 93971 ==

== ENCOUNTER 2024-11-03 14:13 | Outpatient (AMB) | payer MEDICAID, SELFPAY ==
[2024-11-03 14:23] LABS: Prothrombin Time Whole Bld POC 36.7 sec (11.1-13.5); ~PT, ~INR - Anti Coag Clinic 3.1 (0.9-1.1)
--- NOTE | 2024-11-03 14:30 | MHC.OFFVISCO ---
Intake Intake Visit Reasons: Anticoagulation Allergies lisinopril Allergy (Mild, Verified 11/03/24 14:15) Cough duloxetine (From Cymbalta) Adverse Reaction (Verified 11/03/24 14:15) Palpitations Medication List - Last Reconciled 11/03/24 by Candi Stone, RN albuterol sulfate 90 mcg/actuation (Ventolin HFA) 2 puffs inhalation Q6H PRN atorvastatin 10 mg PO DAILY bisacodyl 5 mg PO DAILY PRN cholecalciferol (vitamin D3) 50 mcg PO DAILY clindamycin phosphate 1% topical BID clonidine HCl 0.2 mg PO BID diltiazem HCl CD 120 mg PO DAILY docusate sodium 100 mg PO BID PRN ferrous gluconate 324 mg PO 3XW linaclotide (Linzess) 145 mcg PO QAM loratadine 10 mg PO DAILY lorazepam 0.5 mg PO QAM PRN losartan 25 mg PO DAILY magnesium oxide 200 mg PO BID PRN metoprolol succinate ER 25 mg PO BID omeprazole 20 mg PO DAILY polyethylene glycol 3350 (Gavilax) 17 grams PO DAILY tirzepatide (Mounjaro) 7.5 mg subcut QWEEK warfarin 2 mg See Protocol PO DIRECTED Nursing Note INR: 3.1 out of therapeutic range of 2-3 Medications and supplements reviewed. Pt states she started Magnesium Oxide 200mg bid after a visit to the ER with leg cramps. Negative for clot. Magnesium level on the low side. No changes in health, diet, medications, or supplements, Denies any signs and symptoms of bleeding or bruising or clotting. Bleeding, bruising, clotting discussed Nutritional guidance given to have a serving of greens today. Dose: 2mg daily F/U INR: 3 weeks Patient verbalizes understanding of instructions given Anti-Coag Initial Assessment Social Hx Patient Tobacco Use Status: Former Tobacco user Smoking packs per day: 0.5 alcohol intake: never Cardiovascular Hx: HTN and Arrhythmias Lung Disease HX: Asthma Endocrine Hx: Diabetes Musculoskeletal Hx: Osteoporosis Blood Disorder Hx: Anemia and Hyperlipidemia Hx: Kidney Disease Neurological Hx: Migraines/Headaches Cancer HX: No Psych. 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
--- OUTSIDE RECORDS SUMMARY | 2024-11-03 15:40 | XMS_ITS | Encounter Summary ---
Author Organization [employer] Address [address] [facility] [address]t [place] [address] Care Team Providers Care Butter Liquefier Name Role Phone Shruti Campos MD Primary Care Pro vider Reason for Visit * Reason Comments Med Change Request Encounter Details Date Type Department Care Team ([facility] Contact Info) Description 02/12/2024 Refill [facility] [address] [place] [address] Shruti Campos MD [address] [place] [address] Social History Tobacco Use Types Packs/Day Years [...] Description 12/18/2024 1:30 PM EDT Office Visit [facility] [address] [place] [phone] Shruti Campos MD [address] [place] [phone] documented as of this encounter Visit Diagnoses Not on filedocumented in this encounter Additional Health Concerns Assessment Noted Time PHQ-9 Depression Total Score: 18 024 12:25 PM EST documented as of this encounter Care Teams Butter Liquefier Relationship Specialty Start Date End Date Shruti Campos MD [address] [place] [address] PCP - General Internal Medicine 05/11/23 documented as of this encounter
--- OUTSIDE RECORDS SUMMARY | 2024-11-03 15:40 | XMS_ITS | Encounter Summary ---
Author Organization [employer] Address [address] [facility] [address] [place] [address] Care Team Providers Care Clinical Manager Name Role Phone Shruti Campos MD Primary Care Pro vider Reason for Visit * Reason Comments Med Refill Encounter Details Date Type Department Care Team ([facility] st Contact Info) Description 01/14/2024 Refill [facility] [address] [place], [place] [phone] Shruti Campos MD [address] [place] [address] Social History Tobacco Use Types Packs/Day Years [...] Description 12/18/2024 1:30 PM EDT Office Visit [facility] [address] [place] [phone] Shruti Campos MD [address] [place] [phone] documented as of this encounter Visit Diagnoses Not on filedocumented in this encounter Additional Health Concerns Assessment Noted Time PHQ-9 Depression Total Score: 18 024 12:25 PM EST documented as of this encounter Care Teams Clinical Manager Relationship Specialty Start Date End Date Shruti Campos MD [address] [place] [id number] PCP - General Internal Medicine 05/11/23 documented as of this encounter
--- OUTSIDE RECORDS SUMMARY | 2024-11-03 15:40 | XMS_ITS | Encounter Summary ---
Author Organization [employer] Address [address] [facility] [address] [place] [address] Care Team Providers Care Convolute Tube Winder Name Role Phone Shruti Campos MD Primary Care Pro vider Reason for Visit * Reason Comments Med Refill Encounter Details Date Type Department Care Team ([facility] Contact Info) Description 12/16/2023 Refill [facility] [address] [place], [place] [phone] Shruti Campos MD [address] [place] [address] Social History Tobacco Use Types Packs/Day Years [...] Description 12/18/2024 1:30 PM EDT Office Visit [facility] [address] [place] [phone] Shruti Campos MD [address] [place] [phone] documented as of this encounter Visit Diagnoses Not on filedocumented in this encounter Additional Health Concerns Assessment Noted Time PHQ-9 Depression Total Score: 18 024 12:25 PM EST documented as of this encounter Care Teams Convolute Tube Winder Relationship Specialty Start Date End Date Shruti Campos MD [address] [place] [phone] PCP - General Internal Medicine 05/11/23 documented as of this encounter
--- OUTSIDE RECORDS SUMMARY | 2024-11-03 15:41 | XMS_ITS | Encounter Summary ---
Author Organization [facility] Address [address] [place] [address] Care Team Providers Care International Coordinator Name Role Phone Paul Mix MD Primary Care Provider [phone] Lisette Murillo Primary Care Provider [phone] Encounter Details Date Type Department Care Team ([facility] st Contact Info) Description 08/24/2014 Orders Only [facility] [address] [place] [phone] Estephania Skelton, KSENIA [address] [place] [address] Social History Tobacco Use Types Packs/Day Years [...] of this encounter Procedures * Due to [employer] law, this organization might not be [...] in this encounter Results * Due to [employer] law, this organization might not be sharing negative HIV tests. * (ABNORMAL) [facility] FPGS,HPV,CT/GC PANEL (08/24/2014 4:01 PM EDT) Clinical information NONE GIVEN [facility] Comment:{CLINICAL INFORMATIO N: {[id number]) Date last menstrual period [id number] [facility] Comment:{LMP: {[id number]) Date of previous PAP smear NONE GIVEN [facility] Comment:{PREV. PAP: {[id number]) Date of previous biopsy NONE GIVEN [facility] Comment:{PREV. BX: {[id number]) Specimen source (Cvx/Vag) Cervix, Endocervix [facility] Comment:{SOURCE: {[id number]) Statement of Adequacy (Cvx/Vag) Satisfactory for evaluation. Endocervical/hearn sformation zone component absent. [facility] Comment:{STATEMENT OF ADEQUA CY: {[id number]) General categories (Cvx/Vag) EPITHELIAL CELL ABNORMALITY(A) [facility] Comment:{GENERAL CATEGORIZAT ION: {[id number]) Cytology, Pap Smear Low Grade Squamous Intraepithelial Lesion (LSIL)(A) [facility] Comment:{INTERPRETATION/RESU LT: {[id number]) Cytology study comment (Cvx/Vag) This Pap test has been evaluated with computer assisted technology. [facility] Comment:{COMMENT: {[id number]) Dispatcher Service (Cvx/Vag) MPG, CT(ASCP) [facility] Comment:{SPECIMEN TRANSPORTER: { [id number]) Pathologist (Cvx/Vag) Lorena Mcgrath M.D., Board Certified in Anatomic and Clinical Pathology (electronic signature) Consulting Pathologist [facility] [address] [place] [address] [facility] Comment:{PATHOLOGIST: {[id number]) HPV MRNA E6/E7 Detected(A) Not Detected [facility] Comment: {HPV mRNA E6/E7, [facility] VIAL {[id number]) This test was performed using the APTIMA HPV Assay ([employer] This assay detects E6/E7 viral messenger RNA (mRNA) from 14 high-risk HPV types (16,18,31,33,35,39,45,51,52,56,58,59,66,68). The analytical performance characteristics of this assay, when used to test [facility] specimens, have been determined by [facility] Chlamydia trachomatis rRNA NOT DETECTED NOT DETECTED [facility] Comment:{CHLAMYDIA TRACHOMAT IS RNA, TMA {[id number]) Neisseria Gonorrhoeae rRNA NOT DETECTED NOT DETECTED [facility] Comment:{NEISSERIA GONORRHOE AE RNA, TMA {[id number]) COMMENT SEE NOTE [facility] Comment: {COMMENT {[id number]) This test was performed using the APTIMA COMBO2 Assay ([employer] The analytical performance characteristics of this assay, when used to test [facility] specimens have been determined by [facility]. 08/24/2014 4:01 PM EDT 08/25/2014 1:12 AM EDT Narrative Resulting Agency Comment [id number] Estephania Skelton [facility] Aissatou l Result Performing Organization Address [facility] Co de Phone Number [facility] [address] [place] [address] * RPR, (RAPID PLASMIN REAGIN) WITH REFLEX TO FTA, DIAGNOSTIC (08/24/2014 1:40 PM EDT) Reagin Ab NON-REACT LEIGH ANN NON-REACT LEIGH ANN [facility] Comment:{RPR (DX) W/REFL TIT ER AND CONFIRMATORY TESTING {[id number]) 08/24/2014 1:40 PM EDT 08/25/2014 12:58 AM EDT Narrative Resulting Agency Comment [id number] Estephania Nafisa [facility] Final Res ult Performing Organization Address [facility] Co de Phone Number [facility] [address] [place] [phone] * HEPATITIS C ANTIBODY, SERUM (08/24/2014 1:40 PM EDT) Hepatitis C virus Ab NON-REACTI VE NON-REACT LEIGH ANN [facility] Comment:{HEPATITIS C ANTIBOD Y {[id number]) Hepatitis C virus Ab Signal/Cutoff 0.07 <1.00 [facility] Comment:{SIGNAL TO CUT-OFF { [id number]) 08/24/2014 1:40 PM EDT 08/25/2014 12:58 AM EDT Narrative Resulting Agency Comment [id number] [facility] Final Res ult Performing Organization Address City/[facility] Co de Phone Number [facility] [address] [place] [address] documented in this encounter Visit Diagnoses Diagnosis Encounter for routine gynecological examination Routine gynecological examination documented in this encounter Care Teams International Coordinator Relationship Specialty Start Date End Date Paul Mix MD [facility] [address] [place] [address] PCP - General 05/25/09 11/19/14 Lisette Murillo [facility] [address] [place] [address] PCP - General Internal Medicine 11/20/14 documented as of this encounter
--- OUTSIDE RECORDS SUMMARY | 2024-11-03 15:41 | XMS_ITS | Encounter Summary ---
Author Organization [employer] Address [address] [place] [address] 7 [place] [address] Care Team Providers Care Tomography Technologist Name Role Phone Shruti Campos MD Primary Care Pro vider Reason for Visit * Reason Onset Date Comments Med Refill 07/23/2024 Encounter Details Date Type Department Care Team ([facility] st Contact Info) Description 07/23/2024 Refill [facility] [address] [place] [address] Shruti Campos MD [address] [place] [address] Social History Tobacco Use Types Packs/Day Years [...] your housing situation today? I have mohan sing 07/15/[address] you li [...] 1:30 PM EDT Office Visit [facility] [address] [place] [address] Shruti Campos MD [address] [place] [address] documented as of this encounter Visit Diagnoses Not on filedocumented in this encounter Additional Health Concerns Assessment Noted Time PHQ-9 Depression Total Score: 0 07/22/19 25 1:07 PM EDT documented as of this encounter Care Teams Tomography Technologist Relationship Specialty Start Date End Date Shruti Campos MD [address] [place] [address] PCP - General Internal Medicine 05/11/23 documented as of this encounter
--- OUTSIDE RECORDS SUMMARY | 2024-11-03 15:41 | XMS_ITS | Encounter Summary ---
Author Organization [employer] Address [address] [place] [address] 7t [place] [address] Care Team Providers Care Brand Coordinator Name Role Phone Shruti Campos MD Primary Care Pro vider Reason for Visit * Reason Onset Date Comments Med Refill 06/23/2024 Encounter Details Date Type Department Care Team ([facility] st Contact Info) Description 06/23/2024 Refill [facility] [address] [place] [address] Ryanne Vega MD [address] [place] [address] Social History Tobacco Use Types Packs/Day Years [...] Upcoming Encounters Date Type Department Care Team ([facility] st Contact Info) Description 12/18/2024 1:30 PM EDT Office Visit [facility] [address] [place] [address] [phone] Shruti Campos MD [address] [place] [address] documented as of this encounter Visit Diagnoses Not on filedocumented in this encounter Additional Health Concerns Assessment Noted Time PHQ-9 Depression Total Score: 18 024 12:25 PM EST documented as of this encounter Care Teams Brand Coordinator Relationship Specialty Start Date End Date Shruti Campos MD [address] [place] [address] [phone] PCP - General Internal Medicine 05/11/23 documented as of this encounter
--- OUTSIDE RECORDS SUMMARY | 2024-11-03 15:41 | XMS_ITS | Encounter Summary ---
Author Organization [employer] Address [address] [facility] 7t [place] [address] Care Team Providers Care Tip Stretcher Name Role Phone Shruti Campos MD Primary Care Pro vider Reason for Visit * Reason Comments Med Refill Encounter Details Date Type Department Care Team ([facility] Contact Info) Description 10/06/2024 Refill [facility] [address] [place], [place] [phone] Shruti Campos MD [address] [place] [address] Social History Tobacco Use Types Packs/Day Years [...] encounter Miscellaneous Notes * Telephone Encounter - Shruti Handy MD - 10/07/2024 3:25 PM EDT New dose sent documented in this encounter Plan of Treatment Upcoming Encounters Date Type Department Care Team (Late st Contact Info) Description 12/18/2024 1:30 PM EDT Office Visit [facility] [address] [place] [address] Shruti Campos MD [address] [place] [address] documented as of this encounter Visit Diagnoses Not on filedocumented in this encounter Additional Health Concerns Assessment Noted Time PHQ-9 Depression Total Score: 0 07/22/19 25 1:07 PM EDT documented as of this encounter Care Teams Tip Stretcher Relationship Specialty Start Date End Date Shruti Campos MD [address] [place] [address] PCP - General Internal Medicine 05/11/23 documented as of this encounter
--- OUTSIDE RECORDS SUMMARY | 2024-11-03 15:41 | XMS_ITS | Encounter Summary ---
Author Organization [employer] Address [address] [place] [address] 7t [place] [address] Care Team Providers Care Cytogenetic Technologist Name Role Phone Shruti Campos MD Primary Care Pro vider Encounter Details Date Type Department Care Team ([facility] st Contact Info) Description 11/03/2024 Results Follow-Up [facility] [address] [place] [address] Shruti Campos MD [address] [place] [address] ~PT, ~INR - ANTI COAG CLINIC, PROTHROMBIN TIME WHOLE BLD POC Social History Tobacco Use Types Packs/Day Years [...] Encounter Note - Shruti Handy MD - 11/03/2024 2:32 PM EDT On AC-Goal 2-3 -Pt follows at coumadin clinic at [facility] documented in this encounter Plan of Treatment Upcoming Encounters Date Type Department Care Team (Late st Contact Info) Description 12/18/2024 1:30 PM EDT Office Visit [facility] [address] [place], [place] [phone] Shruti Campos MD [address] [place] [address] documented as of this encounter Visit Diagnoses Not on filedocumented in this encounter Additional Health Concerns Assessment Noted Time PHQ-9 Depression Total Score: 0 07/22/19 25 1:07 PM EDT documented as of this encounter Care Teams Cytogenetic Technologist Relationship Specialty Start Date End Date Shruti Campos MD [address] [place] [address] [phone] PCP - General Internal Medicine 05/11/23 documented as of this encounter
--- OUTSIDE RECORDS SUMMARY | 2024-11-03 15:41 | XMS_ITS | Clinical Summary ---
Author Organization [facility] Address [address] [place] [address] Care Team Providers Care Office Messenger Helper Name Role Phone Lisette Murillo Shelia Primary Care Provider [phone] Allergies No known active allergies Medications Oxycodone-Acetamin [...] MG Tab 1 TABLET twice daily Active Oclwqrulrs-CRTC-Kg ffeine (FIORICET) 50-300-40 MG Cap 1 OR [...] complete this topic Procedures * Due to [employer] law, this organization might not be sharing [...] to Health Maintenance Results * Due to [place] [employer] law, this organization might not be sharing negative HIV tests. * (ABNORMAL) [facility]REPATH FPGS,HPV,CT/GC PANEL (08/24/2014 4:01 PM EDT) Clinical information NONE GIVEN [facility] Comment:{CLINICAL INFORMATIO N: {[id number]) Date last menstrual period [id number] [facility] Comment:{LMP: {[id number]) Date of previous PAP smear NONE GIVEN [facility] Comment:{PREV. PAP: {[id number]) Date of previous biopsy NONE GIVEN [facility] Comment:{PREV. BX: {[id number]) Specimen source (Cvx/Vag) Cervix, Endocervix [facility] Comment:{SOURCE: {[id number]) Statement of Adequacy (Cvx/Vag) Satisfactory for evaluation. Endocervical/hearn sformation zone component absent. [facility] Comment:{STATEMENT OF ADEQUA CY: {[id number]) General categories (Cvx/Vag) EPITHELIAL CELL ABNORMALITY(A) [facility] Comment:{GENERAL CATEGORIZAT ION: {[id number]) Cytology, Pap Smear Low Grade Squamous Intraepithelial Lesion (LSIL)(A) [facility] Comment:{INTERPRETATION/RESU LT: {[id number]) Cytology study comment (Cvx/Vag) This Pap test has been evaluated with computer assisted technology. [facility] Comment:{COMMENT: {[id number]) Portrait Photographer (Cvx/Vag) MPG, CT(ASCP) [facility] Comment:{ANIMAL KILLER: { [id number]) Pathologist (Cvx/Vag) Lorena Mcgrath M.D., Board Certified in Anatomic and Clinical Pathology (electronic signature) Consulting Pathologist [facility] [address] [place] [address] [facility] Comment:{PATHOLOGIST: {[id number]) HPV MRNA E6/E7 Detected(A) Not Detected [facility] Comment: {HPV mRNA E6/E7, SUREPATH VIAL {[id number]) This test was performed using the APTIMA HPV Assay ([employer] This assay detects E6/E7 viral messenger RNA (mRNA) from 14 high-risk HPV types (16,18,31,33,35,39,45,51,52,56,58,59,66,68). The analytical performance characteristics of this assay, when used to test SurePath specimens, have been determined by [facility] Chlamydia trachomatis rRNA NOT DETECTED NOT DETECTED [facility] Comment:{CHLAMYDIA TRACHOMAT IS RNA, TMA {[id number]) Neisseria Gonorrhoeae rRNA NOT DETECTED NOT DETECTED [facility] Comment:{NEISSERIA GONORRHOE AE RNA, TMA {[id number]) COMMENT SEE NOTE [facility] Comment: {COMMENT {[id number]) This test was performed using the APTIMA COMBO2 Assay ([employer] The analytical performance characteristics of this assay, when used to test SurePath specimens have been determined by [facility]. 08/24/2014 4:01 PM EDT 08/25/2014 1:12 AM EDT Narrative Resulting Agency Comment [id number] Estephania Skelton [facility] Aissatou l Result Performing Organization Address [facility] Co de Phone Number [facility] [address] [place] [address] * HEPATITIS C ANTIBODY, SERUM (08/24/2014 1:40 PM EDT) Hepatitis C virus Ab NON-REACTI VE NON-REACT LEIGH ANN [facility] Comment:{HEPATITIS C ANTIBOD Y {[id number]) Hepatitis C virus Ab Signal/Cutoff 0.07 <1.00 [facility] Comment:{SIGNAL TO CUT-OFF { [id number]) 08/24/2014 1:40 PM EDT 08/25/2014 12:58 AM EDT Narrative Resulting Agency Comment [id number] Estephania Skelton [facility] Final Res ult Performing Organization Address [facility] de Phone Number [facility] [address] [place] [address] from Last 3 Months or Most Recently Relevant to Health Maintenance Insurance MEDICAID * Guarantor: [id number] [employer] Account Type Relation to Patient Date of Phone Billing Address Worker's Comp [address] [place] [address] WORKERS COMPENSATION Care Teams Office Messenger Helper Relationship Specialty Start Date End Date Lisette Murillo [address] [place] [address] PCP - General Internal Medicine 11/20/14
--- OUTSIDE RECORDS SUMMARY | 2024-11-03 15:41 | XMS_ITS | Encounter Summary ---
Author Organization [employer] Address [address] [place] [address] 7t [place] [address] Care Team Providers Care Diamond Sizer And Grader Name Role Phone Shruti Campos MD Primary Care Pro vider Reason for Visit * Reason Onset Date Comments Med Refill 06/23/2024 Encounter Details Date Type Department Care Team ([facility] st Contact Info) Description 06/23/2024 Refill [facility] [address] [place] [address] Shruti Campos MD [address] [place] [address] Social History Tobacco Use Types Packs/Day Years [...] Description 12/18/2024 1:30 PM EDT Office Visit [facility] MEDICINE [address] [place] [address] Shruti Campos MD [address] [place] [address] documented as of this encounter Visit Diagnoses Not on filedocumented in this encounter Additional Health Concerns Assessment Noted Time PHQ-9 Depression Total Score: 18 024 12:25 PM EST documented as of this encounter Care Teams Diamond Sizer And Grader Relationship Specialty Start Date End Date Shruti Campos MD [address] [place] [address] [phone] PCP - General Internal Medicine 05/11/23 documented as of this encounter
--- OUTSIDE RECORDS SUMMARY | 2024-11-03 15:41 | XMS_ITS | Patient Health Record ---
Author Organization [facility] Address [address] [place] [address] Care Team Providers Care Building Construction Foreman Name Role Phone Ellis Lee Primary Care Provider UnavailTom Salguero Unavailable [phone] Allergies Allergen (clinical drug ingredient) Drug/Non Drug [...] Status Risk Notes Problem Paroxysmal atrial fibrillation (108916570) Paroxysmal atrial fibrillation (I48.0) Active confirmed Problem Mild intermittent asthma (226759530) Mild intermittent asthma, uncomplicated (J45.20) Active confirmed 2 Problem Obstructive sleep apnea syndrome (disorder) (03286182) Obstructive sleep apnea (adult) (pediatric) (G47.33) Active confirmed Problem Morbid obesity (disorder) (610759727) Morbid (severe) obesity due to excess calories (E66.01) Active confirmed Problem Adjustment disorder with anxiety (99525788) Adjustment disorder with anxiety (F43.22) Active confirmed Problem Anxiety (17718219) Anxiety (F41.9) Active confirmed Problem Essential hypertension (39895120) Essential hypertension (I10) Active confirmed Problem Essential hypertension (16125713) Accelerated hypertension (I10) Active confirmed 2 Problem Obstructive sleep apnea syndrome (24288413) ANGELA (obstructive sleep apnea) (G47.33) Active confirmed Problem Atrial fibrillation (57175011) Atrial fibrillation, unspecified type (I48.91) Active confirmed Plan Of Treatment Pending Test Test Name Order Date [facility] 06/11/2013 [facility] 04/24/2017 Future Test Test Name Order Date Chem 7 (BUN, Cr, Lytes, Glu) 03/16/2017 Insurance Providers Payer Name Payer Address Payer Phone Subscriber Number Group Number Insured Name Patient Relationship to Insured Coverage Start Date Coverage End Date [facility] MEDICAID [address] [place] [id number] Bria Morrison Self - patient is the insured 3 Medical (General) History Medical History History ICD Code preserved LV function with EF 65-70% by echo Apr paroxysmal atrial fibrillati on, rate conrol/AC, MCP4XS2-SVMd = 2, HTN, female moderate to severe concentric LVH by ech o Apr resistant hypertension asthma obstructive sleep apnea obesity anxiety ruptured ovarian cyst/hemato ma peritoneum requiring reversal of oral anticoagulation July 2017
--- OUTSIDE RECORDS SUMMARY | 2024-11-03 15:41 | XMS_ITS | Encounter Summary ---
Author Organization [facility] Address [address] [place] [address] Care Team Providers Care Gun Number Name Role Phone Paul Mix MD Primary Care Provider [phone] Lisette Murillo Primary Care Provider [phone] Encounter Details Date Type Department Care Team ([facility] st Contact Info) Description 04/30/2013 Orders Only [facility] Orthopedic Surgery [address] [address] Mandeep Kirk MD [address] [place] [address] Social History Tobacco Use Types Packs/Day Years [...] leg documented in this encounter Care Teams Gun Number Relationship Specialty Start Date End Date Paul Mix MD [facility] [address] [place] [address] PCP - General 05/25/09 11/19/14 Lisette Murillo [address] [address] PCP - General Internal Medicine 11/20/14 documented as of this encounter
--- OUTSIDE RECORDS SUMMARY | 2024-11-03 15:41 | XMS_ITS | Clinical Summary ---
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 Follow up with [facility] in 2-3 weeks to discuss management of [...] scheduled for 05/01 at 11:15 AM at [facility] Essential hypertension 04/23/2017 Assessment & Plan [...] asymptomatic. Recommend follow up with Dr. Liriano -[facility] in 2-3 weeks after discharge. Patient to [...] PRN for SOB - [facility] for [facility] sats <92 - Dextromorphan PRN [...] Type Department Care Team Description 09/10/2024 Telephone [facility] [address] [place] [address] Agriculture Inspector: Mckayla Mcgee MA from Last 3 Months [...] Screening 03/12/2024 Depression Screening and Follow-Up 03/12/2024 Social [employer] ual Screening 03/12/2024 Influenza Vaccine (#1) 2024 01/22/2012, 2010 DTaP,Tdap,and Td Vaccines (3 - Td or Tdap) 04/16/2027 04/16/2017, 08/29/2011 RSV Vaccine (60+ years old a nd patients) (1 - 1-dose 75+ series) 11/07/2054 HIV Screening Completed 09/02/2010 Hepatitis C Screening Completed 09/16/2010 Hepatitis B Vaccines Discontinued Varicella Vaccines Discontinued Procedures * Due to [facility] law, this organization might not be sharing negative HIV tests. Procedure Name Priority Date/Time Associated Diagnosis Comments POCT HEMOGLOBIN A1C, CMG, NON-INTERFACED Routine 06/05/2022 11:58 AM EDT Type 2 diabetes mellitus with other specified complication, unspecified whether long wall shear operator insulin use BASIC METABOLIC PANEL STAT 06/02/2022 12:15 PM EDT [facility] W/[facility]PV, MRNA E6/E7, REFLEX 16/18/45 Routine 08/08/2017 11:00 AM EDT Screening for malignant neoplasm of cervix Screening for human papillomavirus HEPATITIS C ANTIBODY, CONVERSION Routine 09/16/2010 12:21 PM EDT from Last 3 Months or Most Recently Relevant to Health Maintenance Results * Due to [employer] [place] [employer] law, this organization might not be sharing negative HIV tests. * (ABNORMAL) POCT Hemoglobin A1C, non-interfaced (06/05/2022 11:58 AM EDT) POCT Hemoglobin, A1C 6.6(A) 0 - 5.6 % Blood 06/05/2022 11:5 8 AM EDT us Jinit A. Lee MD POINT OF CARE TEST ORDERABLES Final Result * (ABNORMAL) BMP - Basic Metabolic Panel (06/02/2022 12:15 PM EDT) NA 133(L) 136 - 145 mmol/L 06/02/2022 1:07 PM EDT [facility] K 3.9 3.5 - 5.3 mmol/L 06/02/2022 1:07 PM EDT [facility] Cl 105 98 - 107 mmol/L 06/02/2022 1:07 PM EDT [facility] CO2 26 22 - 30 mmol/L 06/02/2022 1:07 PM EDT [facility] BUN 13 7 - 18 mg/dL 06/02/2022 1:07 PM EDT [facility] Creatinine 0.98 0.60 - 1.30 mg/dL 06/02/2022 1:07 PM EDT [facility] Glucose 129(H) 70 - 99 mg/dL 06/02/2022 1:07 PM EDT [facility] Calcium 9.6 8.5 - 10.1 mg/dL 06/02/2022 1:07 PM EDT [facility] Anion Gap 2(L) 5 - 15 06/02/2022 1:07 PM EDT [facility] eGFR 74(L) >=90 mL/min/1. 73m2 06/02/2022 1:07 PM EDT [facility] Comment: Estimated Glomerular [...] Vazquez MD LAB BLOOD ORDERABLES Final Result [address] [address], * (ABNORMAL) [facility] w/HPV, mRNA E6/E7, Reflex 16/18/45 (08/08/2017 11:00 AM EDT) [facility] TIS, mRNA E6/E7 Jessica See Below(A) [email or web address] Comment: TIS,mRNA E6/E7 JESSICA CLINICAL INFORMATION: None given LMP: 07/11/17 PREV. PAP: 2010 PAP LGSIL PREV. BX: NONE GIVEN SOURCE: Cervix, Endocervix STATEMENT OF ADEQUACY: Satisfactory for evaluation. Endocervical/transformation zone component present. GENERAL CATEGORIZATION: EPITHELIAL CELL ABNORMALITY INTERPRETATION/RESULT: Low Grade Squamous Intraepithelial Lesion (LSIL) COMMENT: This Pap test has been evaluated with computer assisted technology. CEO ZIFF DAVIS: SHARI ALMONTE(ASCP) CT screening location: [place] [address] PATHOLOGIST: Maxwell Oreilly M.D. Direct , Board Certified in Anatomic and Clinical Pathology and Cytopathology (electronic signature) Consulting Pathologist [facility] [address] [place] [address] HPV mRNA E6/E7 Not Detected REFERENCE RANGE: Not Detected This test was performed using the APTIMA HPV Assay ([employer] This assay detects E6/E7 viral messenger [...] ORDER STELLA Final Result [facility] [address] [facility] [address]rd [address], [place] [address], [place] [phone] Daily Deals for [facility] [address] [facility] [address], [place] [address], [place] [phone] * HEPATITIS C ANTIBODY, CONVERSION (09/16/2010 12:21 PM EDT) Hepatitis C Antibody <0.02 <1.00 IV [facility] [employer] Comment: Negative Not infected with HCV, unless recent infection is suspected or other evidence exists to indicate HCV infection. 09/16/2010 12:2 1 PM EDT 09/16/2010 1:08 PM EDT Paula Valdez MD LAB HISTORICAL RESULTS F inal Result [facility] [employer] [address] [place] [address], from Last 3 Months or Most Recently Relevant to Health Maintenance Insurance [facility] Advance Directives Documents on File Type Date Recorded Patient Parole Hearing Officer Expl 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
--- OUTSIDE RECORDS SUMMARY | 2024-11-03 15:41 | XMS_ITS | Encounter Summary ---
Author Organization [employer] Address [address] [place] [address] 7t [place] [address] Care Team Providers Care Field Artillery Officer Name Role Phone Shruti Campos MD Primary Care Pro vider Reason for Visit * Reason Onset Date Comments Med Refill 06/23/2024 Encounter Details Date Type Department Care Team ([facility] st Contact Info) Description 06/23/2024 Refill [facility] [address] [place] [address] Rosana Jaramillo MD [address] [place] [address] Anxiety Social History Tobacco Use Types Packs/Day Years Used Date Smoking Tobacco: Former Cigarettes Comments:Started tobacco smo hcristine 17 y and stopped at her 29 [...] Description 12/18/2024 1:30 PM EDT Office Visit [facility] [address] [place] [address] Shruti Campos MD [address] [place] [address] documented as of this encounter Visit Diagnoses Diagnosis Anxiety Anxiety state, unspecified documented in this encounter Additional Health Concerns Assessment Noted Time PHQ-9 Depression Total Score: 18 024 12:25 PM EST documented as of this encounter Care Teams Field Artillery Officer Relationship Specialty Start Date End Date Shruti Campos MD [address] [place] [address] PCP - General Internal Medicine 05/11/23 documented as of this encounter
--- OUTSIDE RECORDS SUMMARY | 2024-11-03 15:41 | XMS_ITS | Encounter Summary ---
Author Organization [employer] Address [address] [place] [address] [address] [place] [address] Care Team Providers Care Financial Controller Name Role Phone Shruti Campos MD Primary Care Pro vider Reason for Visit * Reason Onset Date Comments Durable Medical Equipment 10/09/2023 Encounter Details Date Type Department Care Team ([facility] st Contact Info) Description 10/09/2023 Telephone [facility] MEDICINE [address] [place], [place] [phone] Shruti Campos MD [address] [place] [address] Durable Medical Equipment Social History Tobacco Use [...] 1:30 PM EDT Office Visit [facility] MEDICINE [address] [place] [address] Shruti Campos MD [address] [place] [address] documented as of this encounter Visit Diagnoses Not on filedocumented in this encounter Additional Health Concerns Assessment Noted Time PHQ-9 Depression Total Score: 18 024 12:25 PM EST documented as of this encounter Care Teams Financial Controller Relationship Specialty Start Date End Date Shruti Campos MD [address] [place] [address] PCP - General Internal Medicine 05/11/23 documented as of this encounter
--- OUTSIDE RECORDS SUMMARY | 2024-11-03 15:41 | XMS_ITS | Encounter Summary ---
Author Organization [employer] Address [address] [facility] [address] [place] [address] Care Team Providers Care Bus Greaser Name Role Phone Shruti Campos MD Primary Care Pro vider Encounter Details Date Type Department Care Team (Latest Contact Info) Description 10/27/2024 Results Follow-Up [facility] [address] [place] [phone] Shruti Campos MD [address] [place] [address] CBC auto differential, Prothrombin Time-INR, Comprehensive Metabolic Panel, Magnesium Social History Tobacco Use Types Packs/Day Years [...] Encounter Note - Shruti Handy MD - 10/27/2024 12:42 PM EDT Labs done by outside provider documented in this encounter Plan of Treatment Upcoming Encounters Date Type Department Care Team (Late st Contact Info) Description 12/18/2024 1:30 PM EDT Office Visit [facility] [address] [place] [phone] Shruti Campos MD [address] [place] [phone] documented as of this encounter Visit Diagnoses Not on filedocumented in this encounter Additional Health Concerns Assessment Noted Time PHQ-9 Depression Total Score: 0 07/22/19 25 1:07 PM EDT documented as of this encounter Care Teams Bus Greaser Relationship Specialty Start Date End Date Shruti Campos MD [address] [place] [phone] PCP - General Internal Medicine 05/11/23 documented as of this encounter
--- OUTSIDE RECORDS SUMMARY | 2024-11-03 15:41 | XMS_ITS | Clinical Summary ---
Author Organization [employer] Address [address] [place] [address] [address] [place] [address] Care Team Providers Care Food Mixer Repairer Name Role Phone Shruti Campos MD Primary Care Pro vider Allergies Active Allergy Reactions Criticality Noted Date Comments Lisinopril Cough High 12/17/2016 Itchy throat-cough Medications * This document contains information received from the source organization and may not represent a complete record from that organization. Multiple Vitamin (multivitamin ) capsule Take 1 capsule by mouth Once per day. Active Misc. Devices (Pulse Oximeter) misc 1 Device Once per day. 1 each 024 Active cholecalcifer ol (Vitamin D-3) 50 MCG (1999) capsule TAKE 1 CAPSULE BY MOUTH EVERY DAY 90 capsule 1 024 Active DULoxetine (Cymbalta) [address] capsule TAKE 1 CAPSULE (20 MG) BY MOUTH ONCE PER DAY. DO NOT CRUSH OR CHEW. 60 capsule 1 024 2024 Active GaviLAX 17 GM/SCOOP powder TAKE 17 G BY MOUTH ONCE PER DAY 510 g 2 024 Active diazePAM (Valium) 2 MG tabletIndicat ions:Anxiety Take 1 tablet (2 mg) by mouth 1 (one) time for 1 dose. 1 tablet 025 Active warfarin (Coumadin) 2 MG tablet TAKE 1 TO 3 TABLETS BY MOUTH DAILY DIRECTED BY COUMADIN CLINIC. 270 tablet 2 025 Active Linzess 145 MCG capsule TAKE 1 CAPSULE (145 MCG) BY MOUTH BEFORE BREAKFAST. DO NOT CRUSH OR CHEW. 30 capsule 025 Active metoprolol succinate XL (Toprol-XL) 25 MG 24 hr tablet TAKE 2 TABLETS (50 MG TOTAL) BY MOUTH ONCE A DAY AND 1 TABLET (25 MG TOTAL) EVERY EVENING. 270 tablet 1 Active loratadine (Claritin) 10 MG tablet TAKE 1 TABLET BY MOUTH EVERY DAY 90 tablet 1 Active atorvastatin (Lipitor) 10 MG tablet TAKE 1 TABLET BY MOUTH EVERY DAY 90 tablet 1 Active omeprazole (PriLOSEC) [address] capsule TAKE 1 CAPSULE BY MOUTH EVERY DAY 90 capsule 1 Active glucose blood (FREESTYLE LITE) test strip Check CBG daily 60 each Active FreeStyle lancets 1 each by Other route Once per day. TEST BLOOD SUGAR ONCE A DAY 100 each Active Blood Glucose Monitoring Suppl (FreeStyle [place] Lite) w/Device kitIndication s:Type 2 diabetes mellitus with microalbuminu giovanna, without long-term current use of insulin ([facility]) Check glucose daily 1 kit Active Ventolin HFA 108 (90 Base) MCG/ACT inhaler INHALE 2 PUFFS EVERY 6 HOURS IF NEEDED FOR WHEEZING. 18 g 2 Active cloNIDine (Catapres) 0.2 MG tablet TAKE 1 TABLET BY MOUTH TWICE A DAY 180 tablet 1 Active ferrous gluconate (Fergon) 324 (38 Fe) MG tablet TAKE 1 TABLET BY MOUTH THREE TIMES A WEEK. 36 tablet 1 Active docusate sodium (Colace) 100 MG capsule Take 1 capsule (100 mg) by mouth Once per day. 90 capsule Active bisacodyl (Bisacodyl EC) 5 MG EC tablet Take 1 tablet (5 mg) by mouth if needed each day for constipation. DO NOT CRUSH CHEW OR SPLIT 90 tablet 025 Active losartan (Cozaar) 25 MG tablet TAKE 1 TABLET BY MOUTH EVERY DAY 90 tablet 1 Active Tirzepatide (Mounjaro) 7.5 MG/0.5ML solution auto-injector Inject 7.5 mg under the skin 1 (one) time per week. 2 mL 2 025 2024 Active dilTIAZem CD (Cardizem CD) 120 MG 24 hr capsule TAKE 1 CAPSULE BY MOUTH EVERY DAY 90 capsule 1 025 Active dilTIAZem CD (Cardizem CD) 120 MG 24 hr capsule TAKE 1 CAPSULE BY MOUTH EVERY DAY 90 capsule 1 025 2024 Discontinued Tirzepatide (Mounjaro) 5 MG/0.5ML solution auto-injector Inject 5 mg as directed 1 (one) time per week. 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 DIC panel showed FDP 10-40, Fibrinogen 357 wnl, d-dimer elevated to 3.73. Pelvic ultrasound showed retroperitoneal hematoma in cul-de-sac measuring 13.6cm x 6cm. INR 1.1 reversed on 5/5/18 with stable H/H. Gynecology consulted and no need for surgical intervention and clot will absorb on its own. Follow up with SALES REPRESENTATIVE CONSULTANT in 2-3 weeks to discuss management of [...] Encounters Date Type Department Care Team Description 11/03/2024 Results Follow-Up [facility] [address] [place] [address] Shruti Campos MD ~PT, ~INR - ANTI COAG CLINIC, PROTHROMBIN TIME WHOLE BLD POC 11/03/2024 Orders Only GENERIC EXTERNAL DATA DEPARTMENT Provider, Generic External Data 10/27/2024 Results Follow-Up [facility] [address] [place] [phone] Shruti Campos MD CBC auto differential, Prothrombin Time-INR, Comprehensive Metabolic Panel, Magnesium 10/27/2024 Orders Only GENERIC EXTERNAL DATA DEPARTMENT Provider, Generic External Data 10/20/2024 Results Follow-Up [facility] [address] [place] [phone] Shruti Campos MD ~PT, ~INR - ANTI COAG CLINIC, PROTHROMBIN TIME WHOLE BLD POC 10/20/2024 Orders Only GENERIC EXTERNAL DATA DEPARTMENT Provider, Generic External Data 10/18/2024 Refill [facility] [address] [place] [address] Althea Chilel ANP 10/07/2024 Orders Only [facility] [address] [place] [address] Shruti Campos MD 10/06/2024 Refill [facility] [address] [place] [phone] Shruti Campos MD 09/18/2024 Telephone [facility] [address] [place] [phone] Shruti Campos MD Chart Prep 09/13/2024 Refill [facility] [address] [place] [phone] Shruti Campos MD 09/07/2024 Refill [facility] [address] [facility] [place] [place] [address] Shruti Campos MD 09/05/2024 Refill [facility] [address] [facility] [place] [address] Shruti Campos MD 08/26/2024 Telephone [facility] [address] [facility] [place] [address] Pam Guzman, [facility] November08/25/2024 Results Follow-Up [facility] [address] [facility] [place] [address] Shruti Campos MD ~PT, ~INR - ANTI COAG CLINIC, PROTHROMBIN TIME WHOLE BLD POC 08/25/2024 Orders Only GENERIC EXTERNAL DATA DEPARTMENT Provider, Generic External Data 08/23/2024 Refill [facility] [address] [facility] [place] [address] Shruti Campos MD 08/14/2024 Refill [facility] [address] [facility] [place] [address] Shruti Campos MD 08/10/2024 Refill [facility] [address] [facility] [place] [address] Saida Garcia DO 08/05/2024 Telephone [facility] [address] [facility] [place] [address] Shruti Campos MD Prior Authorization from Last 3 Months Immunizations Immunization Administration [...] 90 07/21/2024 1:06 PM EDT Temperature 36.3 C (97.3 F) 07/21/2024 1:06 PM EDT Respiratory Rate 20 07/21/2024 1:06 PM EDT [...] Description 12/18/2024 1:30 PM EDT Office Visit [facility] [address] [place] [address] [phone] Shruti Campos MD [address] [place], [place] [phone] Health Maintenance Due Date Last Done Comments Lipid Panel 1980 Diabetes: Foot Exam 11/07/1989 HPV Vaccines (1 - 3-dose series) 11/07/1994 Diabetes: Hemoglobin A1C 07/06/2024 025, 06/20/2023 Influenza Vaccine (#1) 2024 2, 11/29/2010 Cervical Cancer Screening 12/03/2024 Family Planning (PISQ) 12/03/2024 12/04/2023 HPV/Cotest 12/03/2024 12/04/2023 Pap Smear 12/03/2024 12/04/2023 Tobacco Screening 12/03/2024 12/04/2023 SDOH Screening 07/15/2025 07/15/2024 Alcohol/Substance Use Screening 07/21/2025 07/21/2024 Depression Screening 07/21/2025 07/21/2024, 07/21/2024 Disability Screening 07/21/2025 07/21/2024 COVID-19 Vaccine ( - 2023-2 5 season) 2025 Postponed from 11/10 (Patient Refused) Hepatitis B Vaccines (1 of 3 - 19+ 3-dose series) 07/22/2025 Postponed from 10/11 (Patient Refused) Pneumococcal Vaccine: Pediatrics (0 to 5 Years) and At-Risk Patients (6 to 49) Years (1 of 2 - PCV) 07/22/2025 Postponed from 10/11 (Patient Refused) Mammogram 08/09/2025 08/10/2023 Eye Exam [...] patient's age to complete this topic Meningococcal B Vaccine Aged Out No l onger eligible based on patient's age to complete [...] Comments PROTHROMBIN TIME WHOLE BLD POC Routine 11/03/2024 2:20 PM EDT ~PT, ~INR - ANTI COAG CLINIC Routine 11/03/2024 2:20 PM EDT US VENOUS DUPLEX LE RT Routine 7:22 AM EDT MAGNESIUM Routine 10/27/2024 1:40 AM EDT COMPREHENSIVE METABOLIC PANEL Routine 10/27/2024 1:40 AM EDT PROTHROMBIN TIME-INR Routine 10/27/2024 1:40 AM EDT CBC WITH AUTO DIFFERENTIAL Routine 10/27/2024 1:40 AM EDT PROTHROMBIN TIME WHOLE BLD POC Routine 10/20/2024 2:20 PM EDT ~PT, ~INR - ANTI COAG CLINIC Routine 10/20/2024 2:20 PM EDT PROTHROMBIN TIME WHOLE BLD POC Routine 08/25/2024 11:17 AM EDT ~PT, ~INR - ANTI COAG CLINIC Routine 08/25/2024 11:17 AM EDT POCT GLYCATED HEMOGLOBIN, TOTAL Routine 04/07/2024 1:38 [...] * (ABNORMAL) PROTHROMBIN TIME WHOLE BLD POC (11/03/2024 2:20 PM EDT) Only the most recent of3 resultswithin the time period is included. Protime 36.7(H) 11.1 - 13.5 sec [facility] 11/03/2024 2:20 PM EDT 11/03/2024 2:22 PM EDT us Generic External Data Provider LAB BLOOD ORDERAB LES Final Result Performing Organization Address [facility] Co de Phone Number [facility] [address] [place] [phone] * (ABNORMAL) ~PT, ~INR - ANTI COAG CLINIC (11/03/2024 2:20 PM EDT) Only the most recent of3 resultswithin the time period is included. Prothrombin Time INR 3.1(H) 0.9 - 1.1 [facility] Comment:METER #: [id number] TERNATIONAL NORMALIZED RATIO (INR) REFERENCE RANGES Reference RangeFor patients not on anticoagulant therapy: 0.9 - 1.1INR ranges for oral anticoagulanttherapy:For prevention and treatment of venous thrombosis and pulmonary embolism: 2.0 - 3.0For acute myocardial infarction with aspirin therapy: 2.0 - 3.0For acute myocardial infarction without aspirin therapy: 3.0 - 4.0For patients with mechanical prosthetic heart valves: 2.5 - 3.5 11/03/2024 2:20 PM EDT 11/03/2024 2:22 PM EDT Generic External Data Provider LAB BLOOD ORDERAB LES Final Result Performing Organization Address [facility] Co de Phone Number [facility] [address] [place] [phone] * US VENOUS DUPLEX LE RT (10/27/2024 7:22 AM EDT) Anatomical Region Laterality Modality Abdomen Ultrasound 10/27/2024 7:22 AM EDT Narrative 10/27/2024 7:23 AM EDT [address] [address] Ultrasound Report Signed Patient: Bria Nevarez MR#: [id number] : 1980 Acct:[id number] Age/Sex: 43 / F ADM Date: 10/27/24 Loc: HO.ED Attending Dr: Ordering Physician: Sherri Moya DO Date of Service: 10/27/24 Procedure(s): US venous duplex LE RT Accession Number(s): [id number] cc: Sherri Moya DO; Shruti Campos MD CLINICAL HISTORY: RLE pain, +Homans sign eval for DVT Venous duplex ultrasound right lower extremity Comparison: None provided Findings: The visualized deep veins are fully compressible with normal Doppler color flow and spectral tracings. No popliteal cyst. IMPRESSION: 1. Negative for right lower extremity deep vein thrombosis. This document has been electronically signed by: Farzaneh Plata MD on 10/27/2024 07:22:39 Dictated By: Farzaneh Plata MD Signed By: <Electronically signed by Farzaneh Plata MD in OV> 10/27/24722 DD/ 1 TD/TT: 10/27/24721 Document Processing Specialist: Procedure Note Donotuseinterpreter, Image - 10/27/2024 [place] [address] Ultrasound Report Signed Patient: Bria Nevarez [facility]#: [id number] : 1980Acct:[id number] Age/Sex: 43 / FADM Date: 10/27/24 Loc: .ED Attending Dr: Ordering Physician: Sherri Moya DO Date of Service: 10/27/24 Procedure(s): US venous duplex LE RT Accession Number(s): [id number] cc: Sherri Moya DO; Shruti Campos MD CLINICAL HISTORY: RLE pain, +Homans sign eval for DVT Venous duplex ultrasound right lower extremity Comparison: None provided Findings: The visualized deep veins are fully compressible with normal Doppler color flow and spectral tracings. No popliteal cyst. IMPRESSION: 1. Negative for right lower extremity deep vein thrombosis. This document has been electronically signed by: Farzaneh Plata MD on 10/27/2024 07:22:39 Dictated By: Farzaneh Plata MD Signed By: <Electronically signed by Farzaneh Plata MD in OV> 10/27/24722 DD/ 1 TD/TT: 10/27/24721 Document Processing Specialist: us [facility] External Provider IMG US PROCEDURES Final Result * (ABNORMAL) CBC auto differential (10/27/2024 1:40 AM EDT) White Blood Count 12.8(H) 4.8 - 10.8 X10*3/uL [facility] Red Blood Count 4.47 4.20 - 5.50 X10*6/uL [facility] Hemoglobin 10.6(L) 12.0 - 16.0 g/dl [facility] Hematocrit 33.5(L) 37.0 - 47.0 % [facility] Mean Corpuscular Volume 74.9(L) 80.0 - 98.0 fL [facility] Mean Corpuscular Hemoglobin 23.7(L) 27.0 - 33.0 pg [facility] Mean Corpuscular HGB Conc 31.6 31.0 - 35.0 g/dl [facility] Red Cell Distribution Width 15.6 11.0 - 16.0 % [facility] Platelet Count 277 160 - 400 X10*3/uL [facility] Mean Platelet Volume 11.3 9.4 - 12.3 fL [facility] Neutrophils Percent Auto 62.7 45 - 73 % [facility] Imm Gran Pct Auto 0.2 0.0 - 0.4 % [facility] Lymphocytes Percent Auto 26.1 20 - 40 % [facility] Monocytes Percent Auto 7.2 2 - 11 % [facility] Eosinophils Percent Auto 3.4 0 - 4 % [facility] Basophils Percent Auto 0.4 0 - 2 % [facility] NRBC Pct Auto 0.0 0.0 - 0.2 /100WBC [facility] Neutrophils Absolute Auto 8.0 2.0 - 8.3 x10*3/uL [facility] Imm Gran Abs Auto 0.03 0.00 - 0.03 X10*3/uL [facility] Lymphocytes Absolute Auto 3.4 1.2 - 4.9 X10*3/uL [facility] Monocytes Absolute Auto 0.9 0.1 - 1.2 X10*3/uL [facility] Eosinophils Absolute Auto 0.4 0.0 - 0.4 X10*3/uL [facility] Basophils Absolute Auto 0.1 0.0 - 0.2 X10*3/uL [facility] NRBC Abs Auto 0.000 0.0 - 0.012 X10*3/uL [facility] 10/27/2024 1:40 AM EDT 10/27/2024 1:45 AM EDT Generic External Data Provider LAB BLOOD ORDERAB LES Final Result Performing Organization Address [facility] Co de Phone Number [facility] [address] [place] [phone] * (ABNORMAL) Prothrombin Time-INR (10/27/2024 1:40 AM EDT) Prothrombin Time 31.1(H) 10.9 - 12.4 SEC [facility] INTERNATIONAL NORM RATIO 2.7(H) 0.9 - 1.1 [facility] Comment:INTERNATIONAL NORMAL IZED RATIO (INR) REFERENCE RANGES Reference RangeFor patients not on anticoagulant therapy: 0.9 - 1.1INR ranges for oral anticoagulanttherapy:For prevention and treatment of venous thrombosis and pulmonary embolism: 2.0 - 3.0For acute myocardial infarction with aspirin therapy: 2.0 - 3.0For acute myocardial infarction without aspirin therapy: 3.0 - 4.0For patients with mechanical prosthetic heart valves: 2.5 - 3.5 10/27/2024 1:40 AM EDT 10/27/2024 1:45 AM EDT Generic External Data Provider LAB BLOOD ORDERAB LES Final Result Performing Organization Address [facility] Co de Phone Number [facility] [address] [place] [phone] * Magnesium (10/27/2024 1:40 AM EDT) Magnesium 1.8 1.6 - 2.6 mg/dL [facility] 10/27/2024 1:40 AM EDT 10/27/2024 1:45 AM EDT us Generic External Data Provider LAB BLOOD ORDERAB LES Final Result [facility] [address] [place] [phone] * (ABNORMAL) Comprehensive Metabolic Panel (10/27/2024 1:40 AM EDT) Sodium 140 135 - 145 mmol/L [facility] Potassium 3.9 3.3 - 5.1 mmol/L [facility] Chloride 108 96 - 108 mmol/L [facility] Carbon Dioxide 22 22 - 29 mmol/L [facility] Anion Gap 14 12 - 20 [facility] Urea Nitrogen (BUN) 21(H) 9 - 16 mg/dL [facility] Creatinine, Serum 1.08 0.5 - 1.4 mg/dL [facility] Creatinine Clr Calc Pharmacy 87.7 [facility] Comment:Provided height and weight: 162.56 cm,127.1 kg.eGFR (calculated from the MDRD study equation) and eCrCl(calculated from the Cockcroft-Gault equation) are based ondifferent parameters and may not yield comparable results.If eCrCl result is absurd, please check patient'sheight/weight. Estimated Glomerular Filt Rate 55 [facility] Comment:Chronic Kidney Disea se: Estimated GFR < 60 mL/min/1.17x1Cyjopt Kidney Disease: Estimated GFR < 15 mL/min/1.73m2 Glucose 118(H) 60 - 115 mg/dL [facility] Calcium 9.1 8.4 - 10.2 mg/dL [facility] Bilirubin, Total 0.2 0.0 - 1.0 mg/dL [facility] Aspartate Amino Transferase 49(H) 5 - 31 U/L [facility] Alanine Aminotransferase 48(H) 0 - 31 U/L [facility] Total Protein 7.8 6.5 - 8.0 g/dL [facility] Albumin Level 4.0 3.5 - 5.0 g/dL [facility] Alkaline Phosphatase 64 39 - 117 U/L [facility] 10/27/2024 1:40 AM EDT 10/27/2024 1:45 AM EDT us Generic External Data Provider LAB BLOOD ORDERAB LES Final Result [facility] [address] [place] [address] [phone] * (ABNORMAL) POCT HGB A1C (04/07/2024 1:38 PM EST) Pathologist [facility] Hemoglobin A1C 7.2(A) 4.0 - 6.0 % QC Media Lot # [id number] Lot# Expiration Date Blood 04/07/2024 1:38 PM EST us Althea Chilel ANP POINT OF CARE TEST ENTER/EDIT OR DERABLES Final Result * [facility] Pap and HPV mRNA E6/E7 (12/04/2023 2:30 PM EDT) Pathologist [facility] HPV nRNA E6/E7 Not Detected Not Detected [facility] Comment:Methodology: Transcr iption-Mediated AmplificationThis assay detects E6/E7 viral messenger RNA (mRNA) from 14high-risk HPV types (16,18,31,33,35,39,45,51,52,56,58,59,66,68).Cervical sources are required for HPV testing.If a vaginal source from a patient who has had atotal hysterectomy with removal of cervix wassubmitted, please contact the testing laboratoryfor alternative testing options.For additional information, please refer [email or web address]/[email or web address](This link if provided for information/educational purposes only.)THIS TEST WAS PERFORMED AT:[facility] [address] [phone] GONZALEZ MD SOURCE: SEE NOTE [facility] Comment:None given Report Status: [facility] Clinical Information: SEE NOTE [facility] Comment:None given LMP: SEE NOTE [facility] Comment:NONE GIVEN Prev. PAP: SEE NOTE [facility] Comment:NONE GIVEN Prev. BX: SEE NOTE [facility] Comment:NONE GIVEN Statement Of Adequacy: SEE NOTE [facility] Comment:Satisfactory for laureano luation.Endocervical/transformation zone component absent. General Categorization: [facility] Interpretation/Result: SEE NOTE [facility] Comment:Cytology Results: Ne gative for intraepitheliallesion or malignancy. Cytology Comment SEE NOTE [facility] Comment:This Pap test has be en evaluated with computerassisted technology. Bobbin Winder: SEE NOTE [facility] Comment:DCR, CT(ASCP)CT scre ening location: [address] [address] Review Bobbin Winder: [facility] Pathologist [facility] PAP Infection SEE NOTE [facility] Comment:Shift in vaginal amrik ra suggestive of bacterialvaginosis. See Note SEE NOTE [facility] Comment:EXPLANATORY NOTE:The Pap is a screening test for cervical cancer. It isnot a diagnostic test and is subject to false negativeand false positive results. It is most reliable when asatisfactory sample, regularly obtained, is submittedwith relevant clinical findings and history, and whenthe Pap result is evaluated along with historic andcurrent clinical information. 12/04/2023 2:30 PM EDT 12/04/2023 6:04 PM EDT Narrative [facility] - 12/07/2023 12:53 PM EDT SEE SCANNED RESULTS IN EMR us Pam Guzman CNM LAB PATHOLOGY ORDERABLES Final Result [facility] [address] [place] [phone] * Referral to Ophthalmology (08/13/2023) us Shruti Handy MD OUTPATIENT REFERR AL ORDERABLES Final Result * BI Mammogram Screening Tomosynthesis Bilateral (08/10/2023 11:20 AM EDT) Anatomical Region Laterality Modality Breast Bilateral Mammography 08/10/2023 11:2 0 AM EDT Narrative 08/28/2023 1:48 PM EDT [facility] [address] [place] [address] Mammography Report Signed Patient: Bria Nevarez MR#: [id number] : 1980 Acct:[id number] Age/Sex: 42 / F ADM Date: 08/10/23 Loc: HO.MAMMO Attending Dr: Shruti Mccain MD Ordering Physician: Shruti Campos MD Re sults: 1Negative Date of Service: 08/10/23 Follow Up: 1 Year From [facility] Mammogram Procedure(s): MM tomosynthesis screening BI Accession Number(s): [id number] cc: Shruti Campos MD EXAMINATION: MM SCREENING [...] in OV> 08/28/23 1344 DD/ 1120 TD/TT: Document Processing Specialist: Procedure Note Donotuseinterpreter, Image - 08/28/2023 [facility] [address] [place] [address] Dr. Góme[place], [place] [address] Mammography Report Signed Patient: Bria Nevarez NMR#: [id number] : 1980Acct:[id number] Age/Sex: 42 / FADM Date: 08/10/23 Loc: HO.MAMMO Attending Dr: Shruti Mccain MD Ordering Physician: Shruti Campos sults: 1Negative Date of Service: 08/10/23Follow Up: 1 Year From Orig inal Mammogram Procedure(s): MM tomosynthesis screening BI Accession Number(s): [id number] cc: Shruti Campos MD EXAMINATION: MM SCREENING [...] in OV> 08/28/23 1344 DD/ 1120 TD/TT: Document Processing Specialist: Shruti Handy MD IMG BI PROCEDURES Final Result * Hepatitis C Antibody with Reflex to HCV, RNA, Quantitative, Real-Time PCR (06/20/2023 1:38 PM EDT) Hepatitis C Antibody Nonreactive Nonreactive [facility] Comment:Antibodies to HCV no t detected; does not exclude early acuteHCV infection. Blood Venous blood specimen / Unknown 06/20/2023 1:38 PM EDT 06/20/2023 1:38 PM EDT us Shruti Handy MD LAB BLOOD ORDERAB LES Final Result Performing Organization Address [facility]/ZIP Co de Phone Number [facility] [address] [place] [phone] * HIV-1/2 Antigen and Antibodies, Fourth Generation, with Reflexes (06/20/2023 1:38 PM EDT) HIV AB/AG Nonreactive Nonreactive [facility] Comment:HIV-1 p24 Ag and/or HIV-1/HIV-2 Ab not detected.A test result that is nonreactive does not exclude thepossibility of exposure to or infection with HIV-1 and/orHIV-2. Nonreactive results in this assay for individualswith prior exposure to HIV-1 and/or HIV-2 may be due toantigen and antibody levels that are below the limit ofdetection of this assay.The TripShake HIV Ag/Ab Combo assay result andsupplemental assay results should be interpreted inconjunction with the patient's clinical presentation,history and other laboratory results. If the results areinconsistent with clinical evidence, additional testing issuggested to confirm the result. Blood Venous blood specimen / Unknown 06/20/2023 1:38 PM EDT 06/20/2023 1:38 PM EDT us Shruti Handy MD LAB BLOOD ORDERAB LES Final Result Performing Organization Address [facility]/ZIP Co de Phone Number [facility] [address] [place] [phone] from Last 3 Months or Most Recently Relevant to Health Maintenance Insurance [facility] C3 Care Teams Food Mixer Repairer Relationship Specialty Start Date End Date Shruti Campos MD [address] [place] [phone] PCP - General Internal Medicine 05/11/23
--- OUTSIDE RECORDS SUMMARY | 2024-11-03 15:41 | XMS_ITS | Encounter Summary ---
Author Organization [employer] Address [address] [place] [address] 7t [place] [address] Care Team Providers Care Veneer Sander Name Role Phone Shruti Campos MD Primary Care Pro vider Encounter Details Date Type Department Care Team ([facility] st Contact Info) Description 10/20/2024 Results Follow-Up [facility] [address] [place] [address] Shruti Campos MD [address] [place] [address] ~PT, ~INR - ANTI COAG CLINIC, PROTHROMBIN [...] Encounter Note - Shruti Handy MD - 10/20/2024 3:04 PM EDT On AC-Goal 2-3 -[place] [facility] [place] in this encounter Plan of Treatment Upcoming Encounters Date Type Department Care Team (Late st Contact Info) Description 12/18/2024 1:30 PM EDT Office Visit [facility] [address] [place], [place] [phone] Shruti Campos MD [address] [place] [phone] documented as of this encounter Visit Diagnoses Not on filedocumented in this encounter Additional Health Concerns Assessment Noted Time PHQ-9 Depression Total Score: 0 07/22/19 25 1:07 PM EDT documented as of this encounter Care Teams Veneer Sander Relationship Specialty Start Date End Date Shruti Campos MD [address] [place] [address] [phone] PCP - General Internal Medicine 05/11/23 documented as of this encounter
--- OUTSIDE RECORDS SUMMARY | 2024-11-03 15:41 | XMS_ITS | Encounter Summary ---
Author Organization [employer] Address [address] [place] [address] 7t [place] [address] Care Team Providers Care Disability Insurance Hearing Officer Name Role Phone Shruti Campos MD Primary Care Pro vider Reason for Visit * Reason Onset Date Comments Med Refill 02/18/2024 Encounter Details Date Type Department Care Team ([facility] st Contact Info) Description 02/18/2024 Refill [facility] [address] [place] [address] Shruti Campos MD 230 [place] [address] Social History Tobacco Use Types Packs/Day Years [...] Description 12/18/2024 1:30 PM EDT Office Visit [facility] [address] [place] [address] Shruti Campos MD [address] [place] [address] documented as of this encounter Visit Diagnoses Not on filedocumented in this encounter Additional Health Concerns Assessment Noted Time PHQ-9 Depression Total Score: 18 024 12:25 PM EST documented as of this encounter Care Teams Disability Insurance Hearing Officer Relationship Specialty Start Date End Date Shruti Campos MD [address] [place] [address] [phone] PCP - General Internal Medicine 05/11/23 documented as of this encounter
--- OUTSIDE RECORDS SUMMARY | 2024-11-03 15:41 | XMS_ITS | Encounter Summary ---
Author Organization [employer] Address [address] [place] [address] 7[address] [place] [address] Care Team Providers Care Quality Assurance Coach Name Role Phone Shruti Campos MD Primary Care Pro vider Reason for Visit * Reason Onset Date Comments Nurse Triage 04/01/2024 Encounter Details Date Type Department Care Team ([facility] st Contact Info) Description 04/01/2024 Telephone [facility] [address] [place] [address] [phone] Shruti Campos MD 230 [place] [address] Nurse Triage Social History Tobacco Use Types [...] prescribed at that time (only information security engineer found on chart). Pt reports thatwas an [...] to touch The caller accepted this outcome. [phone] documented in this encounter Plan of Treatment Upcoming Encounters Date Type Department Care Team (Late st Contact Info) Description 12/18/2024 1:30 PM EDT Office Visit [facility] [address] [place] [address] [phone] Shruti Campos MD [address] [place] [address] documented as of this encounter Visit Diagnoses Not on filedocumented in this encounter Additional Health Concerns Assessment Noted Time PHQ-9 Depression Total Score: 18 024 12:25 PM EST documented as of this encounter Care Teams Quality Assurance Coach Relationship Specialty Start Date End Date Shruti Campos MD [address] [place] [address] [phone] PCP - General Internal Medicine 05/11/23 documented as of this encounter
--- OUTSIDE RECORDS SUMMARY | 2024-11-03 15:41 | XMS_ITS | Encounter Summary ---
Author Organization [employer] Address [address] [facility] 7t [place] [address] Care Team Providers Care Client Development Consultant Name Role Phone Shruti Campos MD Primary Care Pro vider Encounter Details Date Type Department Care Team (Late st Contact Info) Description 11/03/2024 Orders Only GENERIC EXTERNAL DATA DEPARTMENT [...] the past 12 months, has t he [employer], [employer], oil or water [employer] threatened to shut off services in your [...] Description 12/18/2024 1:30 PM EDT Office Visit [facility] 230 [place], [place] [phone] Shruti Campos MD 230 [place], [place] [phone] documented as of this encounter Procedures Procedure Name Priority Date/Time Associated Diagnosis Comments PROTHROMBIN TIME WHOLE BLD POC Routine 11/03/2024 2:20 PM EDT ~PT, ~INR - ANTI COAG CLINIC Routine 11/03/2024 2:20 PM EDT documented in this encounter Results * (ABNORMAL) PROTHROMBIN TIME WHOLE BLD POC (11/03/2024 2:20 PM EDT) Protime 36.7(H) 11.1 - 13.5 sec [facility] 11/03/2024 2:20 PM EDT 11/03/2024 2:22 PM EDT us Generic External Data Provider LAB BLOOD ORDERAB LES Final Result [facility] [address] [place] [address] [phone] * (ABNORMAL) ~PT, ~INR - ANTI COAG CLINIC (11/03/2024 2:20 PM EDT) Prothrombin Time INR 3.1(H) 0.9 - 1.1 [facility] Comment:METER #: [id number] TERNATIONAL NORMALIZED RATIO (INR) REFERENCE RANGES Reference [...] Provider LAB BLOOD ORDERAB LES Final Result [facility] [address] [place] [address] [phone] documented in this encounter Visit Diagnoses Not on filedocumented in this encounter Additional Health Concerns Assessment Noted Time PHQ-9 Depression Total Score: 0 07/22/19 25 1:07 PM EDT documented as of this encounter Care Teams Client Development Consultant Relationship Specialty Start Date End Date Shruti Campos MD [address] [place] [address] PCP - General Internal Medicine 05/11/23 documented as of this encounter
== END 2024-11-03 14:33 | disposition home or self-care (01) ==
LOC: HO.ACS 14:13
PROVIDERS: PCP Student in an Organized Health Care Education/Training Program; Visit Provider Internal Medicine Medical Oncology
DX: Z79.01 Long term (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 (principal)

== ENCOUNTER → 2024-11-03 14:13 | Outpatient (BNVA) | payer MEDICAID, SELFPAY | PROVIDERS: PCP Student in an Organized Health Care Education/Training Program; Visit Provider Internal Medicine Medical Oncology | DX: I48.0 Paroxysmal atrial fibrillation (principal); Z79.01 Long term (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; Z51.81 Encounter for therapeutic drug level monitoring | CPT/HCPCS: 85610; 99211 ==

== ENCOUNTER 2024-11-12 14:30 | Outpatient (AMB) | payer MEDICAID, SELFPAY ==
--- NOTE | 2024-11-12 14:35 | A.OFFVIS_ITS ---
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 Not able to use machine(currently not using due to needing mask. Patient has witnessed apnea/gasping/snoring. [place] sleep done about 3 [place] ago [place]. Goes to bed 1-3am wakes up around 7-8 then falls back sleep for hour. Does not sleep in bed/sleeps in chair due to pain issues(notices if sleeps in bed her apnea is worse.) Accompanied by: Self / Same As Patient Allergies lisinopril Allergy (Mild, Verified 11/12/24 14:38) Cough duloxetine (From Cymbalta) Adverse Reaction (Verified 11/12/24 14:38) Palpitations HPI Comments Details: 44 year old female with Afib presents for an evaluation of angela on cpap therapy. She is on cpap therapy, her last sleep study was years ago. She is out of all her supplies. She snores loudly, gasps for air and c/o sleep paralysis, can not speak when she starts to transition into the sports photographer stages of sleep. She can hear herself gasping for air and her son wakes her up because she is making noises. This has been going on for 2-3x a week for months and increases during her menses. She goes to bed at 1am and wakes up at 8am then goes back to sleep for another hour or so. She has Afib, will cough and has sob, she is on warfarin due to pcos. Sleep apnea is worse when she sleeps in the bed so she sleeps in her chair. She has numbness in hands and feet due to spinal stenosis.Her legs cramp with paresthesias and she has multiple arousals at night. She has daily headaches, blurry vision, with photophobia and phonophobia. She just started monjarou and thinks n/v is a s/e. She feels dizzy, balance and gait is off due to ACL reconstruction of l. knee, in 2016. She has anxiety and aggressive behavior. She does not smoke and or drink alcohol. Labs reviewed with pt. A1c is 7.6, AST/ALT elevated, anemia and Vit. D is low, TSH is normal. [facility] Medical History ANGELA (obstructive sleep apnea) Bilateral carpal tunnel syndrome Lumbosacral radiculopathy Cervical radiculopathy Morbid (severe) obesity due to excess calories Mild intermittent asthma, uncomplicated Acute glaucoma of left eye Chronic pain syndrome intermediate (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 Asymptomatic PVD (peripheral vascular disease) Surgical History Status post laparoscopic sleeve gastrectomy Family History Father Stroke Mother No problems noted. 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, LIVES WITH BOYFRIEND, SON AND BOYFRIEND'S SON Unable to assess alcohol history related to: Unknown Alcohol intake: never Patient Tobacco Use Status: Former Tobacco user Cigarette Packs Per Day: 0.5 Current occupational status: unemployed Current occupation: rt handed Current occupational exposures/hazards: No Physical Exam Vital Signs: Last Vital Signs Pulse 93 11/12/24 14:36 BP 136/88 11/12/24 14:36 Pulse Ox 97 11/12/24 14:36 Oxygen Delivery Method Room Air 11/12/24 14:36 BMI result Body Mass Index 48.6 Const General: cooperative, comfortable and no acute distress Nutritional Appearance: obese Orientation/consciousness: patient oriented x3 HEENT Face and sinus: Yes face symmetric Teeth and gingiva: other (mallampti score is 4) Eyes Pupils: Equal, round and reactive pupils present Neck Other: lateral rom is limited Resp Effort & Inspection: normal respiratory effort and able to speak in complete sentences Neuro General: patient oriented x3 and moves all extremities Cranial nerves: Yes Equal, round and reactive pupils present, Yes Normal accommodation reflex present, Yes Normal facial strength present, Yes Midline tongue present, Yes Ability to bilaterally rotate head present and Yes Ability to bilaterally elevate shoulders present Cognition (Neuro): normal cognition Gait exam (Neuro): Antalgic gait present and Assistive device used Motor exam (neuro): Abnormal motor strength present and Abnormal muscle tone present Psych Appearance: grossly normal Speech and movement: Normal speech and movement present Thought process: Normal thought process present Assessment & Plan Assessment & Plan (1) ANGELA on CPAP: Code(s): G47.33 - Obstructive sleep apnea (adult) (pediatric) Category: Medical (2) Anxiety: Code(s): F41.9 - Anxiety disorder, unspecified Category: Medical (3) RLS (restless legs syndrome): Code(s): G25.81 - Restless legs syndrome Category: Medical Plan HST r/o angela Anxiety and aggressive behavior start Wellbutrin 150mg po q daily in the AM RLS will monitor as A1c is elevated defer to pcp Labs reviewed with pt. she is anemic on warfarin 3 month f/u Orders: Orders RT home sleep study 11/12/24 G47.19 - Other hypersomnia Medications: New bupropion HCl SR (Wellbutrin SR) 150 mg PO DAILY 30 tabs 2RF anxiety 1 month MDD 150mg F41.9 - Anxiety disorder, unspecified Patient Instructions: Sleep Hygiene provided: set a scheduled bedtime and wake time to help regulate the circadian rhythm and balance the release of pituitary hormones. Sleep in a dark room, temperatures below 68 degrees, and no devices n bed. Limit caffeinated products 6 hours prior to bed, and limit fluids 2-4 hours prior to bed. Gentle night yoga, diffusing essential oils, and playing soft music can be relaxing. Coding Level of Care Code New Pt Level 4 (58493) Diagnoses ANGELA on CPAP G47.33 Anxiety F41.9 RLS (restless legs syndrome) G25.81
[2024-11-12 14:36] VITALS: BP 136/88; PULSE 93; O2SAT 97; BMI 48.6
--- OUTSIDE RECORDS SUMMARY | 2024-11-12 16:48 | XMS_ITS | Encounter Summary ---
Author Organization [employer] Address [address] [place] [address] [address] [address] Care Team Providers Care Closet Builder Name Role Phone Shruti Campos MD Primary Care Pro vider Reason for Visit * Reason Onset Date Comments Nurse Triage 04/01/2024 Encounter Details Date Type Department Care Team ([facility] st Contact Info) Description 04/01/2024 Telephone [facility] 230 [place], [place] [phone] Shruti Campos MD 230 [place] [address] Nurse Triage Social History Tobacco Use Types [...] 1.5mg as prescribed at that time (only staff combat information center officer found on chart). Pt reports thatwas [...] to touch The caller accepted this outcome. [phone] documented in this encounter Plan of Treatment Upcoming Encounters Date Type Department Care Team (Late st Contact Info) Description 12/18/2024 1:30 PM EDT Office Visit [facility] [address] [place] [address] [phone] Shruti Campos MD [address] [place] [phone] documented as of this encounter Visit Diagnoses Not on filedocumented in this encounter Additional Health Concerns Assessment Noted Time PHQ-9 Depression Total Score: 18 024 12:25 PM EST documented as of this encounter Care Teams Closet Builder Relationship Specialty Start Date End Date Shruti Campos MD [address] [place] [address] [phone] PCP - General Internal Medicine 05/11/23 documented as of this encounter
--- OUTSIDE RECORDS SUMMARY | 2024-11-12 16:48 | XMS_ITS | Encounter Summary ---
Author Organization [employer] Address [address] [facility] 7t [place] [address] Care Team Providers Care Counseling Aide Name Role Phone Shruti Campos MD Primary Care Pro vider Reason for Visit * Reason Comments Med Refill Encounter Details Date Type Department Care Team ([facility] Contact Info) Description 12/16/2023 Refill [facility] 230 [place], [place] [phone] Shruti Campos MD [address] [place] [address] Social History Tobacco Use Types Packs/Day Years [...] Description 12/18/2024 1:30 PM EDT Office Visit [facility] [address] [place] [phone] Shruti Campos MD [address] [place] [phone] documented as of this encounter Visit Diagnoses Not on filedocumented in this encounter Additional Health Concerns Assessment Noted Time PHQ-9 Depression Total Score: 18 024 12:25 PM EST documented as of this encounter Care Teams Counseling Aide Relationship Specialty Start Date End Date Shruti Campos MD [address] [place] [phone] PCP - General Internal Medicine 05/11/23 documented as of this encounter
--- OUTSIDE RECORDS SUMMARY | 2024-11-12 16:48 | XMS_ITS | Clinical Summary ---
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 Follow up with REFUSE AND RECYCLING WORKER in 2-3 weeks to discuss management [...] scheduled for 05/01 at 11:15 AM at [facility] Essential hypertension 04/23/2017 Assessment & Plan [...] asymptomatic. Recommend follow up with Dr. Liriano -REFUSE AND RECYCLING WORKER in 2-3 weeks after discharge. Patient [...] PRN for SOB - Supplemental O2 by ID for O2 sats <92 - Dextromorphan PRN [...] Type Department Care Team Description 09/10/2024 Telephone [facility] [address] [place] [phone] Residential Property Tax Appraiser: Mckayla Mcgee [place] from Last 3 Months [...] Health Maintenance Due Date Last Done Comments Cologuard 1979 Colon Cancer Screening 1979 Colonoscopy 1979 FOBT / Fit Test 1979 Sigmoidoscopy 1979 Ophthalmology Exam 11/07/1989 Urine Microalbumin 11/07/1989 Pneumococcal Vaccine: Pediat ju (0-5 Years) and At-Risk Patients (6-50 Years) (1 of 2 - PCV) 11/07/1998 Mammogram 2019 Pap Smear 08/08/2020 08/08/2017, 09/02/2010 Cervical Cancer Screening 08/08/2022 HPV and Pap Smear 08/08/2022 08/08/2017, 09/02/2010 Hemoglobin A1C 09/05/2022 06/05/2022, 08/10, 05/18/2021, Additional history exists Basic Metabolic Panel 06/03/2023 06/02/2022 , 01/24/2022, 08/02/2021, Additional history exists Alcohol/Substance Use Screening 03/12/2024 Depression Screening and Follow-Up 03/12/2024 Social Drivers of Health Sofia ual Screening 03/12/2024 COVID-19 Vaccine (1 - 2023-2 5 season) 2024 Influenza Vaccine (#1) 2024 01/22/2012, 2010 DTaP,Tdap,and Td Vaccines (3 - Td or Tdap) 04/16/2027 04/16/2017, 08/29/2011 RSV Vaccine (60+ years old a nd patients) (1 - 1-dose 75+ series) 11/07/2054 HIV Screening Completed 09/02/2010 Hepatitis C Screening Completed 09/16/2010 Hepatitis B Vaccines Discontinued Varicella Vaccines Discontinued Procedures * Due to [place] [employer] law, this organization might not be sharing negative HIV tests. Procedure Name Priority Date/Time Associated Diagnosis Comments POCT HEMOGLOBIN A1C, CMG, NON-INTERFACED Routine 06/05/2022 11:58 AM EDT Type 2 diabetes mellitus with other specified complication, unspecified whether buttermaker helper insulin use BASIC METABOLIC PANEL STAT 06/02/2022 12:15 PM EDT [facility] P[facility] W/HPV, MRNA E6/E7, REFLEX 16/18/45 Routine 08/08/2017 11:00 AM EDT Screening for malignant neoplasm of cervix Screening for human papillomavirus HEPATITIS C ANTIBODY, CONVERSION Routine 09/16/2010 12:21 PM EDT from Last 3 Months or Most Recently Relevant to Health Maintenance Results * Due to [place] [employer] law, this organization might not be sharing [...] - 18 mg/dL 06/02/2022 1:07 PM EDT [facility] Creatinine 0.98 0.60 - 1.30 mg/dL 06/02/2022 1:07 PM EDT [facility] Glucose 129(H) 70 - 99 mg/dL 06/02/2022 1:07 PM EDT [facility] Calcium 9.6 8.5 [...] BLOOD ORDERABLES Final Result Performing Organization Address City/State/[facility] Co de Phone Number [address] [address], * (ABNORMAL) [facility] Pap w/HPV, mRNA E6/E7, Reflex 16/18/45 (08/08/2017 11:00 AM EDT) Pathologist [facility] TIS, mRNA E6/E7 Jessica See Below(A) [employer] Comment: TIS,mRNA E6/E7 JESSICA CLINICAL INFORMATION: None given LMP: 07/11/17 PREV. PAP: 2010 PAP LGSIL PREV. BX: NONE GIVEN SOURCE: Cervix, Endocervix STATEMENT OF ADEQUACY: Satisfactory for evaluation. Endocervical/transformation zone component present. GENERAL CATEGORIZATION: EPITHELIAL CELL ABNORMALITY INTERPRETATION/RESULT: Low Grade Squamous Intraepithelial Lesion (LSIL) COMMENT: This Pap test has been evaluated with computer assisted technology. MEDICAL DETAIL REPRESENTATIVE: SHARI ALMONTE(ASCP) CT screening location: [address] [address] PATHOLOGIST: Maxwell Oreilly M.D. Direct , Board Certified in Anatomic and Clinical Pathology and Cytopathology (electronic signature) Consulting Pathologist [facility] [address] [place] [address] HPV mRNA E6/E7 Not Detected REFERENCE RANGE: Not Detected This test was performed using the APTIMA HPV Assay ([employer] This assay detects E6/E7 viral messenger [...] ORDER STELLA Final Result [facility] [address] [facility] 3rd Floor, [place] [address], [place] [phone] [employer] [facility] [address] [facility] [address], [place] [address], [place] [phone] * HEPATITIS C ANTIBODY, CONVERSION (09/16/2010 12:21 PM EDT) Hepatitis C Antibody <0.02 <1.00 IV [facility] Comment: Negative Not infected with HCV, unless recent infection is suspected or other evidence exists to indicate HCV infection. 09/16/2010 12:2 1 PM EDT 09/16/2010 1:08 PM EDT us Paula Valdez MD LAB HISTORICAL RESULTS F inal Result [facility] [address] [place] [address], from Last 3 Months or Most Recently Relevant to Health [place] [id number] [place], [place] [address]HE[place] Advance Directives Documents on File Type Date Recorded Patient Contract Technical Writer Expl 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
--- OUTSIDE RECORDS SUMMARY | 2024-11-12 16:48 | XMS_ITS | Encounter Summary ---
Author Organization [employer] Address [address] [facility] 7t [place] [address] Care Team Providers Care Insurance Licensing Supervisor Name Role Phone Shruti Campos MD Primary Care Pro vider Reason for Visit * Reason Comments Med Refill Encounter Details Date Type Department Care Team ([facility] st Contact Info) Description 01/14/2024 Refill [facility] 230 [place], [place] [phone] Shruti Campos MD [address] [place] [address] Social History Tobacco Use Types Packs/Day Years Used Date Smoking Tobacco: Former Cigarettes Comments:Started tobacco smo christine 17 y and stopped at her 29 y fo age --used to smoke for 12 years about 5 cig a day --PAQ birttani 5 Alcohol Use Standard Drinks/Week Comments Never [...] 1:30 PM EDT Office Visit [facility] [address] [place] [phone] Shruti Campos MD [address] [place] [address] documented as of this encounter Visit Diagnoses Not on filedocumented in this encounter Additional Health Concerns Assessment Noted Time PHQ-9 Depression Total Score: 18 024 12:25 PM EST documented as of this encounter Care Teams Insurance Licensing Supervisor Relationship Specialty Start Date End Date Shruti Campos MD [address] [place] [address] PCP - General Internal Medicine 05/11/23 documented as of this encounter
--- OUTSIDE RECORDS SUMMARY | 2024-11-12 16:48 | XMS_ITS | Encounter Summary ---
Author Organization [employer] Address [address] [facility] 7t [place] [address] Care Team Providers Care Equalizing Saw Operator Name Role Phone Shruti Campos MD Primary Care Pro vider Reason for Visit * Reason Comments Med Change Request Encounter Details Date Type Department Care Team ([facility] Contact Info) Description 02/12/2024 Refill [facility] [address] [place], [place] [phone] Shruti Campos MD [address] [place] [address] Social History Tobacco Use Types Packs/Day Years [...] Description 12/18/2024 1:30 PM EDT Office Visit [facility] [address] [place] [address] Shruti Campos MD [address] [place] [phone] documented as of this encounter Visit Diagnoses Not on filedocumented in this encounter Additional Health Concerns Assessment Noted Time PHQ-9 Depression Total Score: 18 024 12:25 PM EST documented as of this encounter Care Teams Equalizing Saw Operator Relationship Specialty Start Date End Date Shruti Campos MD [address] [place] [phone] PCP - General Internal Medicine 05/11/23 documented as of this encounter
--- OUTSIDE RECORDS SUMMARY | 2024-11-12 16:48 | XMS_ITS | Encounter Summary ---
Author Organization [facility] Address [address] [place] [address] Care Team Providers Care Street Car Inspector Name Role Phone Paul Mix MD Primary Care Provider [phone] Lisette Murillo Primary Care Provider [phone] Encounter Details Date Type Department Care Team ([facility] st Contact Info) Description 04/30/2013 Orders Only [facility] Orthopedic Surgery [address] [phone] Mandeep Kirk MD [address] [place] [address] Social History Tobacco Use Types Packs/Day Years [...] leg documented in this encounter Care Teams Street Car Inspector Relationship Specialty Start Date End Date Paul Mix MD [facility] [address] [place] [address] PCP - General 05/25/09 11/19/14 Lisette Murillo [address] [address] PCP - General Internal Medicine 11/20/14 documented as of this encounter
--- OUTSIDE RECORDS SUMMARY | 2024-11-12 16:48 | XMS_ITS | Encounter Summary ---
Author Organization [employer] Address [address] [place] [address] [address] [place] [address] Care Team Providers Care Pasteurizer Name Role Phone Shruti Campos MD Primary Care Pro vider Encounter Details Date Type Department Care Team ([facility] st Contact Info) Description 11/03/2024 Results Follow-Up [facility] [address] [place] [address] Shruti Campos MD [address] [place] [address] ~PT, ~INR - ANTI COAG CLINIC, PROTHROMBIN [...] 2-3 -Pt follows at coumadin clinic at [facility] documented in this encounter Plan of Treatment Upcoming Encounters Date Type Department Care Team (Late st Contact Info) Description 12/18/2024 1:30 PM EDT Office Visit [facility] [address] [place], [place] [phone] Shruti Campos MD [address] [place] [address] documented as of this encounter Visit Diagnoses Not on filedocumented in this encounter Additional Health Concerns Assessment Noted Time PHQ-9 Depression Total Score: 0 07/22/19 25 1:07 PM EDT documented as of this encounter Care Teams Pasteurizer Relationship Specialty Start Date End Date Shruti Campos MD [address] [place] [phone] PCP - General Internal Medicine 05/11/23 documented as of this encounter
--- OUTSIDE RECORDS SUMMARY | 2024-11-12 16:48 | XMS_ITS | Encounter Summary ---
Author Organization [employer] Address [address] [place] [address] 7[address] [place] [address] Care Team Providers Care Probate Judge Name Role Phone Shruti Campos MD Primary Care Pro vider Reason for Visit * Reason Onset Date Comments Med Refill 02/18/2024 Encounter Details Date Type Department Care Team ([facility] st Contact Info) Description 02/18/2024 Refill [facility] [address] [place] [address] Shruti Campos MD [address] [place] [address] Social History Tobacco Use Types Packs/Day Years [...] Description 12/18/2024 1:30 PM EDT Office Visit [facility] [address] [place] [address] Shruti Campos MD [address] [place] [address] documented as of this encounter Visit Diagnoses Not on filedocumented in this encounter Additional Health Concerns Assessment Noted Time PHQ-9 Depression Total Score: 18 024 12:25 PM EST documented as of this encounter Care Teams Probate Judge Relationship Specialty Start Date End Date Shruti Campos MD [address] [place] [address] [phone] PCP - General Internal Medicine 05/11/23 documented as of this encounter
--- OUTSIDE RECORDS SUMMARY | 2024-11-12 16:48 | XMS_ITS | Encounter Summary ---
Author Organization [facility] Address [address] [place] [address] Care Team Providers Care Loading Machine Tool Setter Name Role Phone Paul Mix MD Primary Care Provider [phone] Lisette Murillo Primary Care Provider [phone] Encounter Details Date Type Department Care Team ([facility] st Contact Info) Description 08/24/2014 Orders Only [facility] [address] [place] [phone] Estephania Skelton, KSENIA [address] [place] [address] Social History Tobacco Use Types Packs/Day Years [...] of this encounter Procedures * Due to [place] Emotient law, this organization might not be sharing [...] in this encounter Results * Due to [place] Emotient law, this organization might not be sharing negative HIV tests. * (ABNORMAL) [facility] FPGS,HPV,CT/GC PANEL (08/24/2014 4:01 PM EDT) Clinical information NONE GIVEN [facility] Comment:{CLINICAL INFORMATIO N: {[id number]) Date last menstrual period [id number] [facility] Comment:{LMP: {[id number]) Date of previous PAP smear NONE GIVEN [facility] Comment:{PREV. PAP: {[id number]) Date of previous biopsy NONE GIVEN [facility] Comment:{PREV. BX: {[id number]) Specimen source (Cvx/Vag) Cervix, Endocervix [facility] Comment:{SOURCE: {[id number]) Statement of Adequacy (Cvx/Vag) Satisfactory for evaluation. Endocervical/hearn sformation zone component absent. [facility] Comment:{STATEMENT OF ADEQUA CY: {[id number]) General categories (Cvx/Vag) EPITHELIAL CELL ABNORMALITY(A) [facility] Comment:{GENERAL CATEGORIZAT ION: {[id number]) Cytology, Pap Smear Low Grade Squamous Intraepithelial Lesion (LSIL)(A) [facility] Comment:{INTERPRETATION/RESU LT: {[id number]) Cytology study comment (Cvx/Vag) This Pap test has been evaluated with computer assisted technology. [facility] Comment:{COMMENT: {[id number]) Sexual Assault Counsellor (Cvx/Vag) MPG, CT(ASCP) [facility] Comment:{GUIDEMAN: { [id number]) Pathologist (Cvx/Vag) Lorena Mcgrath M.D., Board Certified in Anatomic and Clinical Pathology (electronic signature) Consulting Pathologist [facility] [address] [place] [address] [facility] Comment:{PATHOLOGIST: {[id number]) HPV MRNA E6/E7 Detected(A) Not Detected [facility] Comment: {HPV mRNA E6/E7, [facility] VIAL {[id number]) This test was performed using the APTIMA HPV Assay ([employer] This assay detects E6/E7 viral messenger RNA (mRNA) from 14 high-risk HPV types (16,18,31,33,35,39,45,51,52,56,58,59,66,68). The analytical performance characteristics of this assay, when used to test [facility] specimens, have been determined by [facility] Chlamydia trachomatis rRNA NOT DETECTED NOT DETECTED [facility] Comment:{CHLAMYDIA TRACHOMAT IS RNA, TMA {[id number]) Neisseria Gonorrhoeae rRNA NOT DETECTED NOT DETECTED [facility] Comment:{NEISSERIA GONORRHOE AE RNA, TMA {[id number]) COMMENT SEE NOTE [facility] Comment: {COMMENT {[id number]) This test was performed using the APTIMA COMBO2 Assay ([employer] The analytical performance characteristics of this assay, when used to test [facility] specimens have been determined by [facility]. 08/24/2014 4:01 PM EDT 08/25/2014 1:12 AM EDT Narrative Resulting Agency Comment [id number] Estephania Skelton [facility] Aissatou l Result Performing Organization Address [facility] Co de Phone Number [facility] [address] [place] [address] * RPR, (RAPID PLASMIN REAGIN) WITH REFLEX TO FTA, DIAGNOSTIC (08/24/2014 1:40 PM EDT) Reagin Ab NON-REACT LEIGH ANN NON-REACT LEIGH ANN [facility] Comment:{RPR (DX) W/REFL TIT ER AND CONFIRMATORY TESTING {[id number]) 08/24/2014 1:40 PM EDT 08/25/2014 12:58 AM EDT Narrative Resulting Agency Comment [id number] Estephania Nafisa [facility] Final Res ult Performing Organization Address [facility] Co de Phone Number [facility] [address] [place] [phone] * HEPATITIS C ANTIBODY, SERUM (08/24/2014 1:40 PM EDT) Hepatitis C virus Ab NON-REACTI VE NON-REACT LEIGH ANN [facility] Comment:{HEPATITIS C ANTIBOD Y {[id number]) Hepatitis C virus Ab Signal/Cutoff 0.07 <1.00 [facility] Comment:{SIGNAL TO CUT-OFF { [id number]) 08/24/2014 1:40 PM EDT 08/25/2014 12:58 AM EDT Narrative Resulting Agency Comment [id number] [facility] Final Res ult Performing Organization Address City/[facility] Co de Phone Number [facility] [address] [place] [address] documented in this encounter Visit Diagnoses Diagnosis Encounter for routine gynecological examination Routine gynecological examination documented in this encounter Care Teams Loading Machine Tool Setter Relationship Specialty Start Date End Date Paul Mix MD [facility] [address] [place] [address] PCP - General 05/25/09 11/19/14 Lisette Murillo [facility] [address] [place] [address] PCP - General Internal Medicine 11/20/14 documented as of this encounter
--- OUTSIDE RECORDS SUMMARY | 2024-11-12 16:48 | XMS_ITS | Clinical Summary ---
Author Organization [employer] Address [address] [place] [address] [address] [place] [address] Care Team Providers Care Parts Processor Name Role Phone Shruti Campos MD Primary [...] 1 Device Once per day. 1 each 4 Active cholecalcifero l (Vitamin D-3) 50 MCG (1999 UT) capsule TAKE 1 CAPSULE BY MOUTH EVERY DAY 90 capsule 1 4 Active DULoxetine (Cymbalta) [address] capsule TAKE 1 CAPSULE (20 MG) BY MOUTH ONCE PER DAY. DO NOT CRUSH OR CHEW. 60 capsule 1 4 025 Active GaviLAX 17 GM/SCOOP powder TAKE 17 G BY MOUTH ONCE PER DAY 510 g 2 4 Active diazePAM (Valium) 2 MG tabletIndicati ons:Anxiety Take 1 tablet (2 mg) by mouth 1 (one) time for 1 dose. 1 tablet 5 Active warfarin (Coumadin) 2 MG tablet TAKE 1 TO 3 TABLETS BY MOUTH DAILY DIRECTED BY COUMADIN CLINIC. 270 tablet 2 5 Active Linzess 145 MCG capsule TAKE 1 CAPSULE (145 MCG) BY MOUTH BEFORE BREAKFAST. DO NOT CRUSH OR CHEW. 30 capsule 5 Active metoprolol succinate XL (Toprol-XL) 25 MG 24 hr tablet TAKE 2 TABLETS (50 MG TOTAL) BY MOUTH ONCE A DAY AND 1 TABLET (25 MG TOTAL) EVERY EVENING. 270 tablet 1 5 Active loratadine (Claritin) 10 MG tablet TAKE 1 TABLET BY MOUTH EVERY DAY 90 tablet 1 5 Active atorvastatin (Lipitor) 10 MG tablet TAKE 1 TABLET BY MOUTH EVERY DAY 90 tablet 1 5 Active omeprazole (PriLOSEC) [address] capsule TAKE 1 CAPSULE BY MOUTH EVERY DAY 90 capsule 1 5 Active glucose blood (FREESTYLE LITE) test strip Check CBG daily 60 each 5 Active FreeStyle lancets 1 each by Other route Once per day. TEST BLOOD SUGAR ONCE A DAY 100 each 5 Active Blood Glucose Monitoring Suppl (FreeStyle [place] Lite) w/Device kitIndications :Type 2 diabetes mellitus with microalbuminur ia, without long-term current use of insulin ([facility]) Check glucose daily 1 kit 5 Active Ventolin HFA 108 (90 Base) MCG/ACT inhaler INHALE 2 PUFFS EVERY 6 HOURS IF NEEDED FOR WHEEZING. 18 g 2 5 Active cloNIDine (Catapres) 0.2 MG tablet TAKE 1 TABLET BY MOUTH TWICE A DAY 180 tablet 1 5 Active ferrous gluconate (Fergon) 324 (38 Fe) MG tablet TAKE 1 TABLET BY MOUTH THREE TIMES A WEEK. 36 tablet 1 5 Active docusate sodium (Colace) 100 MG capsule Take 1 capsule (100 mg) by mouth Once per day. 90 capsule 5 Active bisacodyl (Bisacodyl EC) 5 MG EC tablet Take 1 tablet (5 mg) by mouth if needed each day for constipation . DO NOT CRUSH CHEW OR SPLIT 90 tablet 5 Active losartan (Cozaar) 25 MG tablet TAKE 1 TABLET BY MOUTH EVERY DAY 90 tablet 1 5 Active dilTIAZem CD (Cardizem CD) 120 MG 24 hr capsule TAKE 1 CAPSULE BY MOUTH EVERY DAY 90 capsule 1 5 Active dilTIAZem CD (Cardizem CD) 120 MG 24 hr capsule TAKE 1 CAPSULE BY MOUTH EVERY DAY 90 capsule 1 5 025 Discontinued Tirzepatide (Mounjaro) 7.5 MG/0.5ML solution auto-injector Inject 7.5 mg under the skin 1 (one) time per week. 2 mL 2 5 025 Active Problems Problem Noted Date Diagnosed Date [...] intervention , [facility] to [facility] as needed, and Patient to reach out to [facility] as needed Mild intermittent asthma 04/10/2019 Glaucoma of left eye 02/15/2019 Chronic pain syndrome 01/20/2019 shelter (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 2017 PVD (peripheral [...] absorb on its own. Follow up with J[employer] APPLICATION ENGINEER in 2-3 weeks to discuss management of [...] Department Care Team Description 11/03/2024 Results Follow-Up [facility] [address] [facility] [address] Shruti Campos MD ~PT, ~INR - ANTI COAG CLINIC, PROTHROMBIN TIME WHOLE BLD POC 11/03/2024 Orders Only GENERIC EXTERNAL DATA DEPARTMENT Provider, Generic External Data 10/27/2024 Results Follow-Up [facility] [address] [facility] [place] [address] Shruti Campos MD CBC auto differential, Prothrombin Time-INR, Comprehensive Metabolic Panel, Magnesium 10/27/2024 Orders Only GENERIC EXTERNAL DATA DEPARTMENT Provider, Generic External Data 10/20/2024 Results Follow-Up [facility] [address] [facility] [place] [address] Shruti Campos MD ~PT, ~INR - ANTI COAG CLINIC, PROTHROMBIN TIME WHOLE BLD POC 10/20/2024 Orders Only GENERIC EXTERNAL DATA DEPARTMENT Provider, Generic External Data 10/18/2024 Refill [facility] [address] [place] [address] Althea Chilel, JAMES 10/07/2024 Orders Only [facility] [address] [place] [address] Shruti Campos MD 10/06/2024 Refill [facility] [address] [place] [address] Shruti Campos MD 09/18/2024 Telephone [facility] [address] [place] [address] Shruti Campos MD Chart Prep 09/13/2024 Refill [facility] [address] [facility] [place] [address] Shruti Campos MD 09/07/2024 Refill [facility] [address] [place] [address] Shruti Campos MD 09/05/2024 Refill [facility] [address] [place] [address] Shruti Campos MD 08/26/2024 Telephone [facility] [address] [facility] [place] [address] Pam Guzman, CARMEN November Recall 08/25/2024 Results Follow-Up [facility] [address] [facility] [place] [address] Shruti Campos MD ~PT, ~INR - ANTI COAG CLINIC, PROTHROMBIN TIME WHOLE BLD POC 08/25/2024 Orders Only GENERIC EXTERNAL DATA DEPARTMENT Provider, Generic External Data 08/23/2024 Refill [facility] [address] [facility] [place] [address] Shruti Campos MD 08/14/2024 Refill [facility] [place] [address] Shruti Campos MD from Last 3 Months [...] Description 12/18/2024 1:30 PM EDT Office Visit [facility] [address] [place] [address] Shruti Campos MD [address] [place], [place] [phone] Health Maintenance Due Date Last Done Comments CT Colonography 1979 Colonoscopy 1979 Colorectal Cancer Screening 1979 FIT DNA/Cologuard 1979 FIT 1979 FOBT 1980 Lipid Panel 1979 Sigmoidoscopy 1979 Diabetes: Foot Exam 11/07/1989 HPV Vaccines (1 - 3-dose series) 11/07/1994 Diabetes: Hemoglobin A1C 07/06/2024 025, 06/20/2023 COVID-19 Vaccine ( - 2023-2 5 season) 2024 Influenza Vaccine (#1) 2024 2, 11/29/2010 Cervical Cancer Screening 12/03/2024 Family Planning (PISQ) 12/03/2024 12/04/2023 HPV/Cotest 12/03/2024 12/04/2023 Pap Smear 12/03/2024 12/04/2023 Tobacco Screening 12/03/2024 12/04/2023 SDOH Screening 07/15/2025 07/15/2024 Alcohol/Substance Use Screening 07/21/2025 07/21/2024 Depression Screening 07/21/2025 07/21/2024, 07/21/2024 Disability Screening 07/21/2025 07/21/2024 Hepatitis B Vaccines (1 of 3 - [...] included. Protime 36.7(H) 11.1 - 13.5 sec [facility] 11/03/2024 2:20 PM EDT 11/03/2024 2:22 PM EDT us Generic External Data Provider LAB BLOOD ORDERAB LES Final Result [facility] [address] [place] [phone] * (ABNORMAL) ~PT, ~INR - ANTI COAG CLINIC (11/03/2024 2:20 PM EDT) Only the most recent of3 resultswithin the time period is included. Prothrombin Time INR 3.1(H) 0.9 - 1.1 [facility] Comment:METER #: [id number] TERNATIONAL NORMALIZED RATIO (INR) REFERENCE RANGES Reference [...] ORDERAB LES Final Result Performing Organization Address City/State/[facility] Co de Phone Number [facility] [address] [place] [phone] * US VENOUS DUPLEX LE RT (10/27/2024 7:22 AM EDT) Anatomical Region Laterality Modality Abdomen Ultrasound 10/27/2024 7:22 AM EDT Narrative 10/27/2024 7:23 AM EDT [address] [address] Ultrasound Report Signed Patient: Bria Nevarez MR#: [id number] : 1980 Acct:[id number] Age/Sex: 43 / F ADM Date: 10/27/24 Loc: HO.ED Attending Dr: Ordering Physician: Sherri Moya DO Date of Service: 10/27/24 Procedure(s): US venous duplex LE RT Accession Number(s): [id number] cc: Sherri Moya DO; Shruti Campos MD [...] in OV> 10/27/24722 DD/ 1 TD/TT: 10/27/24721 [employer] Operator: Procedure Note Donotuseinterpreter, Image - 10/27/2024 [place] [address] Ultrasound Report Signed Patient: Bria Nevarez [facility]#: [id number] : 1980Acct:[id number] Age/Sex: 43 / FADM Date: 10/27/24 Loc: .ED Attending Dr: Ordering Physician: Sherri Moya DO Date of Service: 10/27/24 Procedure(s): US venous duplex LE RT Accession Number(s): [id number] cc: Sherri Moya DO; Shruti Campos MD [...] in OV> 10/27/24722 DD/ 1 TD/TT: 10/27/24721 [employer] Operator: us [facility] External Provider IMG US PROCEDURES Final Result * (ABNORMAL) CBC auto differential (10/27/2024 1:40 AM EDT) White Blood Count 12.8(H) 4.8 - 10.8 X10*3/uL [facility] Red Blood Count 4.47 4.20 - 5.50 X10*6/uL [facility] Hemoglobin 10.6(L) 12.0 - 16.0 g/dl [facility] Hematocrit 33.5(L) 37.0 - 47.0 % [facility] Mean Corpuscular Volume 74.9(L) 80.0 - 98.0 fL [facility] Mean Corpuscular Hemoglobin 23.7(L) 27.0 - 33.0 pg [facility] Mean Corpuscular HGB Conc 31.6 31.0 - 35.0 g/dl [facility] Red Cell Distribution Width 15.6 11.0 - 16.0 % [facility] Platelet Count 277 160 - 400 X10*3/uL [facility] Mean Platelet Volume 11.3 9.4 - 12.3 fL [facility] Neutrophils Percent Auto 62.7 45 - 73 % [facility] Imm Gran Pct Auto 0.2 0.0 - 0.4 % [facility] Lymphocytes Percent Auto 26.1 20 - 40 % [facility] Monocytes Percent Auto 7.2 2 - 11 % [facility] Eosinophils Percent Auto 3.4 0 - 4 % [facility] Basophils Percent Auto 0.4 0 - 2 % [facility] NRBC Pct Auto 0.0 0.0 - 0.2 /100WBC [facility] Neutrophils Absolute Auto 8.0 2.0 - 8.3 x10*3/uL [facility] Imm Gran Abs Auto 0.03 0.00 - 0.03 X10*3/uL [facility] Lymphocytes Absolute Auto 3.4 1.2 - 4.9 X10*3/uL [facility] Monocytes Absolute Auto 0.9 0.1 - 1.2 X10*3/uL [facility] Eosinophils Absolute Auto 0.4 0.0 - 0.4 X10*3/uL [facility] Basophils Absolute Auto 0.1 0.0 - 0.2 X10*3/uL [facility] NRBC Abs Auto 0.000 0.0 - 0.012 X10*3/uL [facility] 10/27/2024 1:40 AM EDT 10/27/2024 1:45 AM EDT us Generic External Data Provider LAB BLOOD ORDERAB LES Final Result Performing Organization Address [facility] Co de Phone Number [facility] [address] [place] [phone] * (ABNORMAL) Prothrombin Time-INR (10/27/2024 1:40 AM EDT) Prothrombin Time 31.1(H) 10.9 - 12.4 SEC [facility] INTERNATIONAL NORM RATIO 2.7(H) 0.9 - 1.1 [facility] Comment:INTERNATIONAL NORMAL IZED RATIO (INR) REFERENCE [...] ORDERAB LES Final Result Performing Organization Address [facility] Co de Phone Number [facility] [address] [place] [phone] * Magnesium (10/27/2024 1:40 AM EDT) Magnesium 1.8 1.6 - 2.6 mg/dL [facility] 10/27/2024 1:40 AM EDT 10/27/2024 1:45 AM EDT Generic External Data Provider LAB BLOOD ORDERAB LES Final Result Performing Organization Address [facility]/ZIP Co de Phone Number [facility] [address] [place] [address] [phone] * (ABNORMAL) Comprehensive Metabolic Panel (10/27/2024 1:40 AM EDT) Sodium 140 135 - 145 mmol/L [facility] Potassium 3.9 3.3 - 5.1 mmol/L [facility] Chloride 108 96 - 108 mmol/L [facility] Carbon Dioxide 22 22 - 29 mmol/L [facility] Anion Gap 14 12 - 20 [facility] Urea Nitrogen (BUN) 21(H) 9 - 16 mg/dL [facility] Creatinine, Serum 1.08 0.5 - 1.4 mg/dL [facility] Creatinine Clr Calc Pharmacy 87.7 [facility] Comment:Provided height and weight: 162.56 cm,127.1 kg.eGFR (calculated from the MDRD study equation) and eCrCl(calculated from the Cockcroft-Gault equation) are based ondifferent parameters and may not yield comparable results.If eCrCl result is absurd, please check patient'sheight/weight. Estimated Glomerular Filt Rate 55 [facility] Comment:Chronic Kidney Disea se: Estimated GFR < 60 mL/min/1.39u6Usheab Kidney Disease: Estimated GFR < 15 mL/min/1.73m2 Glucose 118(H) 60 - 115 mg/dL [facility] Calcium 9.1 8.4 - 10.2 mg/dL [facility] Bilirubin, Total 0.2 0.0 - 1.0 mg/dL [facility] Aspartate Amino Transferase 49(H) 5 - 31 U/L [facility] Alanine Aminotransferase 48(H) 0 - 31 U/L [facility] Total Protein 7.8 6.5 - 8.0 g/dL [facility] Albumin Level 4.0 3.5 - 5.0 g/dL [facility] Alkaline Phosphatase 64 39 - 117 U/L [facility] 10/27/2024 1:40 AM EDT 10/27/2024 1:45 AM EDT us Generic External Data Provider LAB BLOOD ORDERAB LES Final Result [facility] [address] [place] [phone] * (ABNORMAL) POCT HGB A1C (04/07/2024 1:38 PM EST) Hemoglobin A1C 7.2(A) 4.0 - 6.0 % QC Media Lot # [id number] Lot# Expiration Date ,949 Blood 04/07/2024 1:38 PM EST us Althea Chilel ANP POINT OF CARE TEST ENTER/EDIT OR DERABLES Final Result * [facility] Pap and HPV mRNA E6/E7 (12/04/2023 2:30 PM EDT) HPV nRNA E6/E7 Not Detected Not Detected [facility] Comment:Methodology: Transcr iption-Mediated AmplificationThis assay detects E6/E7 viral messenger RNA (mRNA) from 14high-risk HPV types (16,18,31,33,35,39,45,51,52,56,58,59,66,68).Cervical sources are required for HPV testing.If a vaginal source from a patient who has had atotal hysterectomy with removal of cervix wassubmitted, please contact the testing laboratoryfor alternative testing options.For additional information, please refer [email or web address](This link if provided for information/educational purposes only.)THIS TEST WAS PERFORMED AT:[employer] [place] [phone] GONZALEZ MD SOURCE: SEE NOTE [facility] Comment:None given Report Status: TNP [facility] Clinical Information: SEE NOTE [facility] Comment:None given LMP: SEE NOTE [facility] Comment:NONE GIVEN Prev. PAP: SEE NOTE [facility] Comment:NONE GIVEN Prev. BX: SEE NOTE [facility] Comment:NONE GIVEN Statement Of Adequacy: SEE NOTE [facility] Comment:Satisfactory for laureano luation.Endocervical/transformation zone component absent. General Categorization: [facility] Interpretation/Result: SEE NOTE [facility] Comment:Cytology Results: Ne gative for intraepitheliallesion or malignancy. Cytology Comment SEE NOTE [facility] Comment:This Pap test has be en evaluated with computerassisted technology. Softball Player: SEE NOTE [facility] Comment:DCR, CT(ASCP)CT scre ening location: [place] [address] Review Softball Player: [facility] Pathologist [facility] PAP Infection SEE NOTE [facility] Comment:Shift in vaginal amrik ra suggestive of bacterialvaginosis. See Note SEE NOTE [facility] Comment:EXPLANATORY NOTE:The Pap is a screening test for cervical cancer. It isnot a diagnostic test and is subject to false negativeand false positive results. It is most reliable when asatisfactory sample, regularly obtained, is submittedwith relevant clinical findings and history, and whenthe Pap result is evaluated along with historic andcurrent clinical information. 12/04/2023 2:30 PM EDT 12/04/2023 6:04 PM EDT Narrative [facility] - 12/07/2023 12:53 PM EDT SEE SCANNED RESULTS IN EMR us Pam Gzuman CNM LAB PATHOLOGY ORDERABLES Final Result [facility] [address] [place] [address] [phone] * Referral to Ophthalmology (08/13/2023) us Shruti Handy MD OUTPATIENT REFERR AL ORDERABLES Final Result * BI Mammogram Screening Tomosynthesis Bilateral (08/10/2023 11:20 AM EDT) Anatomical Region Laterality Modality Breast Bilateral Mammography 08/10/2023 11:2 0 AM EDT Narrative 08/28/2023 1:48 PM EDT [address] [place] [address] Mammography Report Signed Patient: Bria Nevarez MR#: [id number] : 1980 Acct:[id number] Age/Sex: 42 / F ADM Date: 08/10/23 Loc: HO.MAMMBianca Attending Dr: Shruti Mccain MD Ordering Physician: Shruti Campos MD Re sults: 1Negative Date of Service: 08/10/23 Follow Up: 1 Year From Orig inal Mammogram Procedure(s): MM tomosynthesis screening BI Accession Number(s): [id number] cc: Shruti Campos MD EXAMINATION: MM SCREENING [...] in OV> 08/28/23 1344 DD/ 1120 TD/TT: [employer] Operator: Procedure Note Donotuseinterpreter, Image - 08/28/[address] [place] [address] Mammography Report Signed Patient: Bria Nevarez NMR#: [id number] : 1980Acct:[id number] Age/Sex: 42 / FADM Date: 08/10/23 Loc: HO.MAMMO Attending Dr: Shruti Mccain MD Ordering Physician: Shruti Campos sults: 1Negative Date of Service: 08/10/23Follow Up: 1 Year From Orig inal Mammogram Procedure(s): MM tomosynthesis screening BI Accession Number(s): [id number] cc: Shruti Campos MD EXAMINATION: MM SCREENING [...] in OV> 08/28/23 1344 DD/ 1120 TD/TT: [employer] Operator: us Shruti Handy MD IMG BI PROCEDURES Final Result * Hepatitis C Antibody with Reflex to HCV, RNA, Quantitative, Real-Time PCR (06/20/2023 1:38 PM EDT) Hepatitis C Antibody Nonreactive Nonreactive [facility] Comment:Antibodies to HCV no t detected; does not exclude early acuteHCV infection. Blood Venous blood specimen / Unknown 06/20/2023 1:38 PM EDT 06/20/2023 1:38 PM EDT us Shruti Handy MD LAB BLOOD ORDERAB LES Final Result Performing Organization Address [facility] Co de Phone Number [facility] [address] [place] [address] [phone] * HIV-1/2 Antigen and Antibodies, Fourth Generation, with Reflexes (06/20/2023 1:38 PM EDT) [facility] HIV AB/AG Nonreactive Nonreactive [facility] Comment:HIV-1 p24 Ag and/or HIV-1/HIV-2 Ab not detected.A test result that is nonreactive does not exclude thepossibility of exposure to or infection with HIV-1 and/orHIV-2. Nonreactive results in this assay for individualswith prior exposure to HIV-1 and/or HIV-2 may be due toantigen and antibody levels that are below the limit ofdetection of this assay.The [employer] HIV Ag/Ab Combo assay result andsupplemental assay results should be interpreted inconjunction with the patient's clinical presentation,history and other laboratory results. If the results areinconsistent with clinical evidence, additional testing issuggested to confirm the result. Blood Venous blood specimen / Unknown 06/20/2023 1:38 PM EDT 06/20/2023 1:38 PM EDT us Shruti Handy MD LAB BLOOD ORDERAB LES Final Result Performing Organization Address [facility]/ZIP Co de Phone Number [facility] [address] [place] [address] [phone] from Last 3 Months or Most Recently Relevant to Health Maintenance Insurance [facility] C3 Care Teams Parts Processor Relationship Specialty Start Date End Date Shruti Campos MD [address] [place] [phone] PCP - General Internal Medicine 05/11/23
--- OUTSIDE RECORDS SUMMARY | 2024-11-12 16:48 | XMS_ITS | Clinical Summary ---
Author Organization [facility] Address [address] [place] [address] Care Team Providers Care Application Manager Name Role Phone Lisette Murillo Shelia Primary Care Provider [phone] Allergies No known active allergies Medications Oxycodone-Acetamin [...] MG Tab 1 TABLET twice daily Active Bqepvbivfc-XJTL-Ay ffeine (FIORICET) 50-300-40 MG Cap 1 OR [...] 08/24/2014, 01/03/2012 Mammogram/Breast Imaging 2019 COVID-19 Vaccine (2023-2 5 season) 2024 Influenza (#1) 2024 Zoster (Shingrix) (1 of [...] this topic Procedures * Due to [place] [employer] law, this organization might not be sharing [...] Health Maintenance Results * Due to [place] [employer] law, this organization might not be sharing negative HIV tests. * (ABNORMAL) [facility] FPGS,HPV,CT/GC PANEL (08/24/2014 4:01 PM EDT) Clinical information NONE GIVEN [facility] Comment:{CLINICAL INFORMATIO N: {[id number]) Date last menstrual period [id number] [facility] Comment:{LMP: {[id number]) Date of previous PAP smear NONE GIVEN [facility] Comment:{PREV. PAP: {[id number]) Date of previous biopsy NONE GIVEN [facility] Comment:{PREV. BX: {[id number]) Specimen source (Cvx/Vag) Cervix, Endocervix [facility] Comment:{SOURCE: {[id number]) Statement of Adequacy (Cvx/Vag) Satisfactory for evaluation. Endocervical/hearn sformation zone component absent. [facility] Comment:{STATEMENT OF ADEQUA CY: {[id number]) General categories (Cvx/Vag) EPITHELIAL CELL ABNORMALITY(A) [facility] Comment:{GENERAL CATEGORIZAT ION: {[id number]) Cytology, Pap Smear Low Grade Squamous Intraepithelial Lesion (LSIL)(A) [facility] Comment:{INTERPRETATION/RESU LT: {[id number]) Cytology study comment (Cvx/Vag) This Pap test has been evaluated with computer assisted technology. [facility] Comment:{COMMENT: {[id number]) Dry Boss (Cvx/Vag) MPG, CT(ASCP) [facility] Comment:{PARACHUTE OFFICER: { [id number]) Pathologist (Cvx/Vag) Lorena Mcgrath M.D., Board Certified in Anatomic and Clinical Pathology (electronic signature) Consulting Pathologist [facility] [address] [place] [address] [facility] Comment:{PATHOLOGIST: {[id number]) HPV MRNA E6/E7 Detected(A) Not Detected [facility] Comment: {HPV mRNA E6/E7, [facility] VIAL {[id number]) This test was performed using the APTIMA HPV Assay ([employer] This assay detects E6/E7 viral messenger RNA (mRNA) from 14 high-risk HPV types (16,18,31,33,35,39,45,51,52,56,58,59,66,68). The analytical performance characteristics of this assay, when used to test [facility] specimens, have been determined by [facility] Chlamydia trachomatis rRNA NOT DETECTED NOT DETECTED [facility] Comment:{CHLAMYDIA TRACHOMAT IS RNA, TMA {[id number]) Neisseria Gonorrhoeae rRNA NOT DETECTED NOT DETECTED [facility] Comment:{NEISSERIA GONORRHOE AE RNA, TMA {[id number]) COMMENT SEE NOTE [facility] Comment: {COMMENT {[id number]) This test was performed using the APTIMA COMBO2 Assay ([employer] The analytical performance characteristics of this assay, when used to test [facility] specimens have been determined by [facility]. 08/24/2014 4:01 PM EDT 08/25/2014 1:12 AM EDT Narrative Resulting Agency Comment [id number] Estephania Skelton [facility] Aissatou l Result Performing Organization Address [facility] Co de Phone Number [facility] [address] [place] [address] * HEPATITIS C ANTIBODY, SERUM (08/24/2014 1:40 PM EDT) Hepatitis C virus Ab NON-REACTI VE NON-REACT LEIGH ANN [facility] Comment:{HEPATITIS C ANTIBOD Y {[id number]) Hepatitis C virus Ab Signal/Cutoff 0.07 <1.00 [facility] Comment:{SIGNAL TO CUT-OFF { [id number]) 08/24/2014 1:40 PM EDT 08/25/2014 12:58 AM EDT Narrative Resulting Agency Comment [id number] Estephania Skelton [facility] Final Res ult Performing Organization Address [facility] de Phone Number [facility] [address] [place] [address] from Last 3 Months or Most Recently Relevant to Health Maintenance Insurance MEDICAID * Guarantor: [id number] [employer] Account Type Relation to Patient Date of Phone Billing Address Worker's Comp [address] [place] [address] WORKERS COMPENSATION Care Teams Application Manager Relationship Specialty Start Date End Date Lisette Murillo [address] [place] [address] PCP - General Internal Medicine 11/20/14
--- OUTSIDE RECORDS SUMMARY | 2024-11-12 16:48 | XMS_ITS | Encounter Summary ---
Author Organization [employer] Address [address] [facility] 7t [place] [address] Care Team Providers Care Principal Process Engineer Name Role Phone Shruti Campos MD Primary Care Pro vider Reason for Visit * Reason Comments Med Refill Encounter Details Date Type Department Care Team ([facility] Contact Info) Description 10/06/2024 Refill [facility] [address] [place], [place] [phone] Shruti Campos MD [address] [place] [address] Social History Tobacco Use Types Packs/Day Years [...] 1:30 PM EDT Office Visit [facility] [address] [place] [address] Shruti Campos MD [address] [place] [address] documented as of this encounter Visit Diagnoses Not on filedocumented in this encounter Additional Health Concerns Assessment Noted Time PHQ-9 Depression Total Score: 0 07/22/19 25 1:07 PM EDT documented as of this encounter Care Teams Principal Process Engineer Relationship Specialty Start Date End Date Shruti Campos MD [address] [place] [phone] PCP - General Internal Medicine 05/11/23 documented as of this encounter
--- OUTSIDE RECORDS SUMMARY | 2024-11-12 16:49 | XMS_ITS | Encounter Summary ---
Author Organization [employer] Address [address] [place] [address] 7t [place] [address] Care Team Providers Care Cardiac Care Unit Nurse Name Role Phone Shruti Campos MD Primary Care Pro vider Reason for Visit * Reason Onset Date Comments Med Refill 06/23/2024 Encounter Details Date Type Department Care Team ([facility] st Contact Info) Description 06/23/2024 Refill [facility] [address] [place] [address] Shruti Campos MD [address] [place] [address] Social History Tobacco Use Types Packs/Day Years [...] 1:30 PM EDT Office Visit [facility] [address] [place] [address] Shruti Campos MD [address] [place] [address] documented as of this encounter Visit Diagnoses Not on filedocumented in this encounter Additional Health Concerns Assessment Noted Time PHQ-9 Depression Total Score: 18 024 12:25 PM EST documented as of this encounter Care Teams Cardiac Care Unit Nurse Relationship Specialty Start Date End Date Shruti Campos MD [address] [place] [address] [phone] PCP - General Internal Medicine 05/11/23 documented as of this encounter
--- OUTSIDE RECORDS SUMMARY | 2024-11-12 16:49 | XMS_ITS | Encounter Summary ---
Author Organization [employer] Address [address] [facility] 7t [place] [address] Care Team Providers Care Science Teacher Name Role Phone Shruti Campos MD Primary Care Pro vider Encounter Details Date Type Department Care Team (Latest Contact Info) Description 10/27/2024 Results Follow-Up [facility] [address] [place] [address] Shruti Campos MD [address] [place] [address] CBC auto differential, Prothrombin Time-INR, Comprehensive Metabolic [...] Description 12/18/2024 1:30 PM EDT Office Visit [facility] [address] [place] [address] Shruti Campos MD [address] [place] [address] documented as of this encounter Visit Diagnoses Not on filedocumented in this encounter Additional Health Concerns Assessment Noted Time PHQ-9 Depression Total Score: 0 07/22/19 25 1:07 PM EDT documented as of this encounter Care Teams Science Teacher Relationship Specialty Start Date End Date Shruti Campos MD [address] [place] [phone] PCP - General Internal Medicine 05/11/23 documented as of this encounter
--- OUTSIDE RECORDS SUMMARY | 2024-11-12 16:49 | XMS_ITS | Encounter Summary ---
Author Organization [employer] Address [address] [place] [address] 7t [place] [address] Care Team Providers Care Sql Bi Developer Name Role Phone Shruti Campos MD Primary Care Pro vider Encounter Details Date Type Department Care Team ([facility] st Contact Info) Description 10/20/2024 Results Follow-Up [facility] [address] [place] [address] Shruti Campos MD [address] [place] [address] ~PT, ~INR - ANTI COAG CLINIC, PROTHROMBIN [...] 2-3 -Pt follows at coumadin clinic at [facility] documented in this encounter Plan of Treatment Upcoming Encounters Date Type Department Care Team (Late st Contact Info) Description 12/18/2024 1:30 PM EDT Office Visit [facility] [address] [place], [place] [phone] Shruti Campos MD [address] [place] [address] documented as of this encounter Visit Diagnoses Not on filedocumented in this encounter Additional Health Concerns Assessment Noted Time PHQ-9 Depression Total Score: 0 07/22/19 25 1:07 PM EDT documented as of this encounter Care Teams Sql Bi Developer Relationship Specialty Start Date End Date Shruti Campos MD [address] [place] [address] [phone] PCP - General Internal Medicine 05/11/23 documented as of this encounter
--- OUTSIDE RECORDS SUMMARY | 2024-11-12 16:49 | XMS_ITS | Encounter Summary ---
Author Organization [employer] Address [address] [place] [address] 7t [place] [address] Care Team Providers Care Technical Coordinator Name Role Phone Shruti Campos MD Primary Care Pro vider Reason for Visit * Reason Onset Date Comments Med Refill 06/23/2024 Encounter Details Date Type Department Care Team ([facility] st Contact Info) Description 06/23/2024 Refill [facility] [address] [place], [place] [phone] Rosana Jaramillo MD [address] [place] [address] Anxiety Social History Tobacco Use Types Packs/Day [...] Description 12/18/2024 1:30 PM EDT Office Visit [facility] [address] [place] [address] Shruti Campos MD [address] [place] [address] documented as of this encounter Visit Diagnoses Diagnosis Anxiety Anxiety state, unspecified documented in this encounter Additional Health Concerns Assessment Noted Time PHQ-9 Depression Total Score: 18 024 12:25 PM EST documented as of this encounter Care Teams Technical Coordinator Relationship Specialty Start Date End Date Shruti Campos MD [address] [place] [address] PCP - General Internal Medicine 05/11/23 documented as of this encounter
--- OUTSIDE RECORDS SUMMARY | 2024-11-12 16:49 | XMS_ITS | Patient Health Record ---
Author Organization [facility] Address [address] [place] [address] Care Team Providers Care Real Estate Appraiser Name Role Phone Ellis Lee Primary Care Provider UnavailTom Salguero Unavailable [phone] Allergies Allergen (clinical drug ingredient) Drug/Non [...] Status Risk Notes Problem Paroxysmal atrial fibrillation (444695660) Paroxysmal atrial fibrillation (I48.0) Active confirmed Problem Mild intermittent asthma (562815700) Mild intermittent asthma, uncomplicated (J45.20) Active confirmed 2 Problem Obstructive sleep apnea syndrome (disorder) (85512811) Obstructive sleep apnea (adult) (pediatric) (G47.33) Active confirmed Problem Morbid obesity (disorder) (426670884) Morbid (severe) obesity due to excess calories (E66.01) Active confirmed Problem Adjustment disorder with anxiety (20547157) Adjustment disorder with anxiety (F43.22) Active confirmed Problem Anxiety (14679901) Anxiety (F41.9) Active confirmed Problem Essential hypertension (94340134) Essential hypertension (I10) Active confirmed Problem Essential hypertension (62538853) Accelerated hypertension (I10) Active confirmed 2 Problem Obstructive sleep apnea syndrome (77924760) ANGELA (obstructive sleep apnea) (G47.33) Active confirmed Problem Atrial fibrillation (81058125) Atrial fibrillation, unspecified type (I48.91) Active confirmed Plan Of Treatment Pending Test Test Name Order Date [facility] 06/11/2013 [facility] 04/24/2017 Future Test Test Name Order Date Chem 7 (BUN, Cr, Lytes, Glu) 03/16/2017 Insurance Providers Payer Name Payer Address Payer Phone Subscriber Number Group Number Insured Name Patient Relationship to Insured Coverage Start Date Coverage End Date [facility] MEDICAID [address] [place] [id number] Bria Morrison Self - patient is the insured 3 Medical (General) History Medical History History ICD Code preserved LV function with EF 65-70% by echo Apr paroxysmal atrial fibrillati on, rate conrol/AC, [id number] = 2, HTN, female moderate to severe concentric LVH by ech o Apr resistant hypertension asthma obstructive sleep apnea obesity anxiety ruptured ovarian cyst/hemato ma peritoneum requiring reversal of oral anticoagulation July 2017
--- OUTSIDE RECORDS SUMMARY | 2024-11-12 16:49 | XMS_ITS | Encounter Summary ---
Author Organization [employer] Address [address] [place] [address] 7t [place] [address] Care Team Providers Care Media Arts Professor Name Role Phone Shruti Campos MD Primary Care Pro vider Reason for Visit * Reason Onset Date Comments Med Refill 06/23/2024 Encounter Details Date Type Department Care Team ([facility] st Contact Info) Description 06/23/2024 Refill [facility] [address] [place], [place] [phone] Ryanne Vega MD [address] [place] [address] Social History Tobacco Use Types Packs/Day Years [...] Upcoming Encounters Date Type Department Care Team ([facility] st Contact Info) Description 12/18/2024 1:30 PM EDT Office Visit [facility] [address] [place] [address] [phone] Shruti Campos MD [address] [place] [address] documented as of this encounter Visit Diagnoses Not on filedocumented in this encounter Additional Health Concerns Assessment Noted Time PHQ-9 Depression Total Score: 18 024 12:25 PM EST documented as of this encounter Care Teams Media Arts Professor Relationship Specialty Start Date End Date Shruti Campos MD [address] [place] [address] [phone] PCP - General Internal Medicine 05/11/23 documented as of this encounter
--- OUTSIDE RECORDS SUMMARY | 2024-11-12 16:49 | XMS_ITS | Encounter Summary ---
Author Organization [employer] Address [address] [place] [address] 7[address] [place] [address] Care Team Providers Care Process Improvement Manager Name Role Phone Shruti Campos MD Primary Care Pro vider Reason for Visit * Reason Onset Date Comments Durable Medical Equipment 10/09/2023 Encounter Details Date Type Department Care Team ([facility] st Contact Info) Description 10/09/2023 Telephone [facility] [address] [place], [place] [phone] hSruti Campos MD [address] [place] [address] Durable Medical Equipment Social History Tobacco Use [...] 1:30 PM EDT Office Visit [facility] [address] [place] [address] Shruti Campos MD [address] [place] [address] documented as of this encounter Visit Diagnoses Not on filedocumented in this encounter Additional Health Concerns Assessment Noted Time PHQ-9 Depression Total Score: 18 024 12:25 PM EST documented as of this encounter Care Teams Process Improvement Manager Relationship Specialty Start Date End Date Shruti Campos MD [address] [place] [address] PCP - General Internal Medicine 05/11/23 documented as of this encounter
--- OUTSIDE RECORDS SUMMARY | 2024-11-12 16:49 | XMS_ITS | Encounter Summary ---
Author Organization [employer] Address [address] [place] [address] 7 [place] [address] Care Team Providers Care Thermograph Operator Name Role Phone Shruti Campos MD Primary Care Pro vider Reason for Visit * Reason Onset Date Comments Med Refill 07/23/2024 Encounter Details Date Type Department Care Team ([facility] st Contact Info) Description 07/23/2024 Refill [facility] [address] [place] [address] Shruti Campos MD [address] [place] [address] Social History Tobacco Use Types Packs/Day Years [...] Description 12/18/2024 1:30 PM EDT Office Visit [facility] [address] [place] [address] Shruti Campos MD [address] [place] [address] documented as of this encounter Visit Diagnoses Not on filedocumented in this encounter Additional Health Concerns Assessment Noted Time PHQ-9 Depression Total Score: 0 07/22/19 25 1:07 PM EDT documented as of this encounter Care Teams Thermograph Operator Relationship Specialty Start Date End Date Shruti Campos MD [address] [place] [address] PCP - General Internal Medicine 05/11/23 documented as of this encounter
== END 2024-11-12 15:13 | disposition home or self-care (01) ==
LOC: HO.HSMC 14:31
PROVIDERS: PCP Student in an Organized Health Care Education/Training Program; Visit Provider Physician Assistant Medical
DX: G47.33 Obstructive sleep apnea (adult) (pediatric) (principal); F41.9 Anxiety disorder, unspecified; G25.81 Restless legs syndrome
CPT/HCPCS: 99204

== ENCOUNTER → 2024-11-12 14:30 | Outpatient (BNVA) | payer MEDICAID, SELFPAY | PROVIDERS: PCP Student in an Organized Health Care Education/Training Program; Visit Provider Physician Assistant Medical | DX: G47.33 Obstructive sleep apnea (adult) (pediatric) (principal); F41.9 Anxiety disorder, unspecified; G25.81 Restless legs syndrome; G47.19 Other hypersomnia | CPT/HCPCS: 99212 ==

== ENCOUNTER 2024-12-05 13:31 | Outpatient (AMB) | payer MEDICAID, SELFPAY ==
[2024-12-05 13:46] LABS: Prothrombin Time Whole Bld POC 20.8 sec (11.1-13.5); ~PT, ~INR - Anti Coag Clinic 1.7 (0.9-1.1)
--- NOTE | 2024-12-05 13:50 | MHC.OFFVISCO ---
Intake Intake Visit Reasons: Anticoagulation Allergies lisinopril Allergy (Mild, Verified 12/05/24 13:41) Cough duloxetine (From Cymbalta) Adverse Reaction (Verified 12/05/24 13:41) Palpitations Medication List - Last Reconciled 12/05/24 by Candi Stone, RN albuterol sulfate 90 mcg/actuation (Ventolin HFA) 2 puffs inhalation Q6H PRN atorvastatin 10 mg PO DAILY bisacodyl 5 mg PO DAILY PRN blood sugar diagnostic (FreeStyle Lite Strips) As directed bupropion HCl SR (Wellbutrin SR) 150 mg PO DAILY 1 month MDD 150mg cholecalciferol (vitamin D3) 50 mcg PO DAILY clindamycin phosphate 1% topical BID clonidine HCl 0.2 mg PO BID diltiazem HCl CD 120 mg PO DAILY docusate sodium 100 mg PO BID PRN ferrous gluconate 324 mg PO 3XW lancets (FreeStyle Lancets) As directed linaclotide (Linzess) 145 mcg PO QAM loratadine 10 mg PO DAILY lorazepam 0.5 mg PO QAM PRN losartan 25 mg PO DAILY magnesium oxide 200 mg PO BID PRN metoprolol succinate ER 25 mg PO BID omeprazole 20 mg PO DAILY polyethylene glycol 3350 (Gavilax) 17 grams PO DAILY tirzepatide (Mounjaro) 7.5 mg subcut QWEEK warfarin 2 mg See Protocol PO DIRECTED Nursing Note INR: 1.7?out of therapeutic range of 2-3 Medications and supplements reviewed Patient status: no changes Medications or supplements: no changes Diet: usual diet for pt Denies any signs and symptoms of bleeding or clotting or unusual bruising Bleeding, bruising, clotting discussed Nutritional guidance given: avoid greens today and to focus on foods that raise the INR. Food list reviewed. Dose: increase today's dose to 3mg (2mg) and then 2mg daily F/U INR Date: 3 weeks?? Patient verbalizing understanding of instructions given. Anti-Coag Initial Assessment Social Hx Patient Tobacco Use Status: Former Tobacco user Smoking packs per day: 0.5 alcohol intake: never Cardiovascular Hx: HTN and Arrhythmias Lung Disease HX: Asthma Endocrine Hx: Diabetes Musculoskeletal Hx: Osteoporosis Blood Disorder Hx: Anemia and Hyperlipidemia Hx: Kidney Disease Neurological Hx: Migraines/Headaches Cancer HX: No Psych. Illness/Depression: Yes Coding Level of Care Code Est Patient Level 1 Diagnoses Current use of anticoagulant therapy Z79.01 Results AMB INR Fingerstick AMB INR Fingerstick 1.7 Last Edit by Candi Stone RN on 12/05/24 13:47 interface delay Assessment & Plan Assessment & Plan (1) Current use of anticoagulant therapy: Code(s): Z79.01 - terminal operator (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 Category: Medical
--- OUTSIDE RECORDS SUMMARY | 2024-12-05 14:50 | XMS_ITS | Clinical Summary ---
Author Organization [employer] Address [address] [place] [address] 7[address] [place] [address] Care Team Providers Care Asphalt Blender Name Role Phone Shruti Campos MD Primary [...] Active cholecalcifero l (Vitamin D-3) 50 MCG (1999) capsule TAKE [...] 5 Active Blood Glucose Monitoring Suppl (FreeStyle [place] Lite) w/Device kitIndications :Type 2 diabetes mellitus with microalbuminur ia, without long-term current use of insulin ([facility]) Check glucose daily 1 kit [...] A WEEK. 36 tablet 1 5 Active bisacodyl (Bisacodyl EC) 5 MG [...] EVERY DAY 90 capsule 1 5 Active docusate sodium (Colace) 100 MG capsule TAKE 1 CAPSULE (100 MG) BY MOUTH ONCE PER DAY. 90 capsule 1 5 Active docusate sodium (Colace) 100 MG capsule Take 1 capsule (100 mg) by mouth Once per day. 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 Follow up with [facility] ROLLER GRINDER in 2-3 weeks to discuss management of [...] Encounters Date Type Department Care Team Description 12/05/2024 Results Follow-Up [facility] [address] [place] [address] Shruti Campos MD ~PT, ~INR - ANTI COAG CLINIC, PROTHROMBIN TIME WHOLE BLD POC 12/05/2024 Orders Only GENERIC EXTERNAL DATA DEPARTMENT Provider, Generic External Data 12/04/[address] [address] Shruti Campos MD 11/03/2024 Results Follow-Up [address] [address] Shruti Campos MD ~PT, ~INR - ANTI COAG CLINIC, PROTHROMBIN TIME WHOLE BLD POC 11/03/2024 Orders Only GENERIC EXTERNAL DATA DEPARTMENT Provider, Generic External Data 10/27/2024 Results Follow-Up [address] [address] Shruti Campos MD CBC auto differential, Prothrombin Time-INR, Comprehensive Metabolic Panel, Magnesium 10/27/2024 Orders Only GENERIC EXTERNAL DATA DEPARTMENT Provider, Generic External Data 10/20/2024 Results Follow-Up [address] [address] Shruti Campos MD ~PT, ~INR - ANTI COAG CLINIC, PROTHROMBIN TIME WHOLE BLD POC 10/20/2024 Orders Only GENERIC EXTERNAL DATA DEPARTMENT Provider, Generic External Data 10/18/[address] [address] Althea Chilel ANP 10/07/2024 Orders Only [facility] [address] [place] [address] Shruti Campos MD 10/06/[address] [address] Shruti Campos MD 09/18/[address] [place] [address] Shruti Campos MD Chart Prep 09/13/2024 Refill [facility] [address] [place] [address] Shruti Campos MD 09/07/2024 Refill [facility] [address] [place] [address] Shruti Campos MD 09/05/2024 Refill [facility] [address] [place] [address] Shruti Campos MD from Last 3 Months [...] 12/18/2024 1:30 PM EDT Office Visit [facility] [address] [place] [address] Shruti Campos MD [address] [place], [place] [phone] Health Maintenance Due Date Last Done Comments CT Colonography 1979 Colonoscopy 1979 Colorectal Cancer Screening 1979 FIT DNA/Cologuard 1979 FIT 1979 FOBT 1979 Lipid Panel 1979 Sigmoidoscopy 1979 Diabetes: Foot Exam 11/07/1989 Family Planning (PISQ) 11/07/1994 HPV Vaccines (1 - 3-dose series) 11/07/1994 Diabetes: Hemoglobin A1C 07/06/2024 025, 06/20/2023 COVID-19 Vaccine (1 - 2023-2 5 season) 2024 Influenza Vaccine (#1) 2024 2, 11/29/2010 Cervical Cancer Screening 12/03/2024 HPV/Cotest 12/03/2024 12/04/2023 Pap Smear 12/03/2024 12/04/2023 Tobacco Screening 04/07/2025 04/07/2024 SDOH Screening 07/15/2025 07/15/2024 Alcohol/Substance Use Screening [...] Comments PROTHROMBIN TIME WHOLE BLD POC Routine 12/05/2024 1:43 PM EDT ~PT, ~INR - ANTI COAG CLINIC Routine 12/05/2024 1:43 PM EDT PROTHROMBIN TIME WHOLE BLD POC Routine 11/03/2024 [...] COAG CLINIC Routine 10/20/2024 2:20 PM EDT POCT GLYCATED HEMOGLOBIN, TOTAL Routine 04/07/2024 1:38 PM EST Type 2 diabetes mellitus with microalbuminuria, without long-term current use of insulin ([facility]) THINPREP IMAGING PAP AND HPV MRNA E6/E7 [...] * (ABNORMAL) PROTHROMBIN TIME WHOLE BLD POC (12/05/2024 1:43 PM EDT) Only the most recent of3 resultswithin the time period is included. Protime 20.8(H) 11.1 - 13.5 sec [facility] 12/05/2024 1:43 PM EDT 12/05/2024 1:45 PM EDT us Generic External Data Provider LAB BLOOD ORDERAB LES Final Result [facility] [address] [place] [phone] * (ABNORMAL) ~PT, ~INR - ANTI COAG CLINIC (12/05/2024 1:43 PM EDT) Only the most recent of3 resultswithin the time period is included. Prothrombin Time INR 1.7(H) 0.9 - 1.1 [facility] Comment:METER #: [id number] TERNATIONAL NORMALIZED RATIO (INR) REFERENCE RANGES Reference RangeFor patients not on anticoagulant therapy: 0.9 - 1.1INR ranges for oral anticoagulanttherapy:For prevention and treatment of venous thrombosis and pulmonary embolism: 2.0 - 3.0For acute myocardial infarction with aspirin therapy: 2.0 - 3.0For acute myocardial infarction without aspirin therapy: 3.0 - 4.0For patients with mechanical prosthetic heart valves: 2.5 - 3.5 12/05/2024 1:43 PM EDT 12/05/2024 1:45 PM EDT us Generic External Data Provider LAB BLOOD ORDERAB LES Final Result [facility] [address] [place] [phone] * US VENOUS DUPLEX LE RT (10/27/2024 7:22 AM EDT) Anatomical Region Laterality Modality Abdomen Ultrasound 10/27/2024 7:22 AM EDT Narrative 10/27/2024 7:23 AM EDT [address] [address] Ultrasound Report Signed Patient: Bria Nevarez MR#: [id number] : 1980 Acct:[id number] Age/Sex: 43 / F ADM Date: 10/27/24 Loc: .ED Attending Dr: Ordering Physician: Sherri Moya DO Date of Service: 10/27/24 Procedure(s): US venous duplex LE RT Accession Number(s): [id number] cc: Sherri Moya DO; Shruti Campos MD [...] in OV> 10/27/247[address] DD/ 1 TD/TT: 10/27/24721 Protohistorian: Procedure Note Donotuseinterpreter, Image - 10/27/[address] [address] Ultrasound Report Signed Patient: Bria Nevarez [facility]#: [id number] : 1980Acct:[id number] Age/Sex: 43 / FADM Date: 10/27/24 Loc: HO.ED Attending Dr: Ordering Physician: Sherri Moya DO Date of Service: 10/27/24 Procedure(s): US venous duplex LE RT Accession Number(s): [id number] cc: Sherri Moya DO; Shruit Campos MD CLINICAL HISTORY: RLE pain, +Homans [...] in OV> 10/27/24722 DD/ 1 TD/TT: 10/27/24721 Protohistorian: us [facility] External Provider IMG US PROCEDURES Final Result * (ABNORMAL) CBC auto differential (10/27/2024 1:40 AM EDT) White Blood Count 12.8(H) 4.8 - 10.8 X10*3/uL [facility] Red Blood Count 4.47 4.20 - 5.50 X10*6/uL [facility] Hemoglobin 10.6(L) 12.0 - 16.0 g/dl [facility] Hematocrit 33.5(L) 37.0 - 47.0 % [facility] Mean Corpuscular Volume 74.9(L) 80.0 - 98.0 fL [facility] Mean Corpuscular Hemoglobin 23.7(L) 27.0 - 33.0 pg [facility] Mean Corpuscular HGB Conc 31.6 31.0 - 35.0 g/dl [facility] Red Cell Distribution Width 15.6 11.0 - 16.0 % [facility] Platelet Count 277 160 - 400 X10*3/uL [facility] Mean Platelet Volume 11.3 9.4 - 12.3 fL [facility] Neutrophils Percent Auto 62.7 45 - 73 % [facility] Imm Gran Pct Auto 0.2 0.0 - 0.4 % [facility] Lymphocytes Percent Auto 26.1 20 - 40 % [facility] Monocytes Percent Auto 7.2 2 - 11 % [facility] Eosinophils Percent Auto 3.4 0 - 4 % [facility] Basophils Percent Auto 0.4 0 - 2 % [facility] NRBC Pct Auto 0.0 0.0 - 0.2 /100WBC [facility] Neutrophils Absolute Auto 8.0 2.0 - 8.3 x10*3/uL [facility] Imm Gran Abs Auto 0.03 0.00 - 0.03 X10*3/uL [facility] Lymphocytes Absolute Auto 3.4 1.2 - 4.9 X10*3/uL [facility] Monocytes Absolute Auto 0.9 0.1 - 1.2 X10*3/uL [facility] Eosinophils Absolute Auto 0.4 0.0 - 0.4 X10*3/uL [facility] Basophils Absolute Auto 0.1 0.0 - 0.2 X10*3/uL [facility] NRBC Abs Auto 0.000 0.0 - 0.012 X10*3/uL [facility] 10/27/2024 1:40 AM EDT 10/27/2024 1:45 AM EDT us Generic External Data Provider LAB BLOOD ORDERAB LES Final Result [facility] [address] [place] [address] [phone] * (ABNORMAL) Prothrombin Time-INR (10/27/2024 1:40 AM EDT) [facility] Prothrombin Time 31.1(H) 10.9 - 12.4 SEC [facility] INTERNATIONAL NORM RATIO 2.7(H) 0.9 - 1.1 [facility] Comment:INTERNATIONAL NORMAL IZED RATIO (INR) [...] Final Result Performing Organization Address [facility]/ZIP Co de Phone Number [facility] [address] [place] [address] [phone] * Magnesium (10/27/2024 1:40 AM EDT) [facility] Magnesium 1.8 1.6 - 2.6 mg/dL [facility] 10/27/2024 1:40 AM EDT 10/27/2024 1:45 AM EDT [employer] External Data Provider LAB BLOOD ORDERAB LES Final Result Performing Organization Address [facility]/ZIP Co de Phone Number [facility] [address] [place] [phone] * (ABNORMAL) Comprehensive Metabolic Panel (10/27/2024 1:40 AM EDT) [facility] Sodium 140 135 - 145 mmol/L [facility] Potassium 3.9 3.3 - 5.1 mmol/L [facility] Chloride 108 96 - 108 mmol/L [facility] Carbon Dioxide 22 22 - 29 mmol/L [facility] Anion Gap 14 12 - 20 [facility] Urea Nitrogen (BUN) 21(H) 9 - 16 mg/dL [facility] Creatinine, Serum 1.08 0.5 - 1.4 mg/dL [facility] Creatinine Clr Calc Pharmacy 87.7 [facility] Comment:Provided height and weight: 162.56 cm,127.1 kg.eGFR (calculated from the MDRD study equation) and eCrCl(calculated from the Cockcroft-Gault equation) are based ondifferent parameters and may not yield comparable results.If eCrCl result is absurd, please check patient'sheight/weight. Estimated Glomerular Filt Rate 55 [facility] Comment:Chronic Kidney Disea se: Estimated GFR < 60 mL/min/1.22w6Jnznsl Kidney Disease: Estimated GFR < 15 mL/min/1.73m2 Glucose 118(H) 60 - 115 mg/dL [facility] Calcium 9.1 8.4 - 10.2 mg/dL [facility] Bilirubin, Total 0.2 0.0 - 1.0 mg/dL [facility] Aspartate Amino Transferase 49(H) 5 - 31 U/L [facility] Alanine Aminotransferase 48(H) 0 - 31 U/L [facility] Total Protein 7.8 6.5 - 8.0 g/dL [facility] Albumin Level 4.0 3.5 - 5.0 g/dL [facility] Alkaline Phosphatase 64 39 - 117 U/L [facility] 10/27/2024 1:40 AM EDT 10/27/2024 1:45 AM EDT us Generic External Data Provider LAB BLOOD ORDERAB LES Final Result [facility] [address] [place] [address] [phone] * (ABNORMAL) POCT HGB A1C (04/07/2024 1:38 PM EST) Hemoglobin A1C 7.2(A) 4.0 - 6.0 % QC Media Lot # [id number] Lot# Expiration Date [id number] Blood 04/07/2024 1:38 PM EST [facility] POINT OF CARE TEST ENTER/EDIT OR DERABLES Final Result * [facility] Pap and HPV mRNA E6/E7 (12/04/2023 2:30 PM EDT) HPV nRNA E6/E7 Not Detected Not Detected [facility] Comment:Methodology: Transcr iption-Mediated AmplificationThis assay detects E6/E7 viral messenger RNA (mRNA) from 14high-risk HPV types (16,18,31,33,35,39,45,51,52,56,58,59,66,68).Cervical sources are required for HPV testing.If a vaginal source from a patient who has had atotal hysterectomy with removal of cervix wassubmitted, please contact the testing laboratoryfor alternative testing options.For additional information, please refer tohttp://education.Omnikles/faq/YZD507f7(This link if provided for information/educational purposes only.)THIS TEST WAS PERFORMED AT:[facility] [place] [phone] GONZALEZ MD SOURCE: SEE NOTE [facility] Comment:None given Report Status: [facility] Clinical Information: SEE NOTE [facility] Comment:None given LMP: SEE NOTE [facility] Comment:NONE GIVEN Prev. PAP: SEE NOTE [facility] Comment:NONE GIVEN Prev. BX: SEE NOTE [facility] Comment:NONE GIVEN Statement Of Adequacy: SEE NOTE [facility] Comment:Satisfactory for laureano luation.Endocervical/transformation zone component absent. General Categorization: [facility] Interpretation/Result: SEE NOTE [facility] Comment:Cytology Results: Ne gative for intraepitheliallesion or malignancy. Cytology Comment SEE NOTE [facility] Comment:This Pap test has be en evaluated with computerassisted technology. Diesel Engine Fitter: SEE NOTE [facility] Comment:DCR, CT(ASCP)CT scre ening location: [address] [address] Review Diesel Engine Fitter: NCRex [facility] Pathologist [facility] PAP Infection SEE NOTE [facility] Comment:Shift in vaginal amrik ra suggestive of bacterialvaginosis. See Note SEE NOTE [facility] Comment:EXPLANATORY NOTE:The Pap is a screening test for cervical cancer. It isnot a diagnostic test and is subject to false negativeand false positive results. It is most reliable when asatisfactory sample, regularly obtained, is submittedwith relevant clinical findings and history, and whenthe Pap result is evaluated along with historic andcurrent clinical information. 12/04/2023 2:30 PM EDT 12/04/2023 6:04 PM EDT Narrative [facility] - 12/07/2023 12:53 PM EDT SEE SCANNED RESULTS IN EMR us Pam MCCORMACK LAB PATHOLOGY ORDERABLES Final Result [facility] [address] [place] [address] [phone] * Referral to Ophthalmology (08/13/2023) us Shruti Handy MD OUTPATIENT REFERR AL ORDERABLES Final Result * BI Mammogram Screening Tomosynthesis Bilateral (08/10/2023 11:20 AM EDT) Anatomical Region Laterality Modality Breast Bilateral Mammography 08/10/2023 11:2 0 AM EDT Narrative 08/28/2023 1:48 PM EDT [facility] [address] [place] [address] Mammography Report Signed Patient: Bria Nevarez MR#: [id number] : 1980 Acct:[id number] Age/Sex: 42 / F ADM Date: 08/10/23 Loc: YARITZA Attending Dr: Shruti Mccain MD Ordering Physician: Shruti Campos MD sults: 1Negative Date of Service: 08/10/23 Follow Up: 1 Year From Orig inal Mammogram Procedure(s): MM tomosynthesis screening BI Accession Number(s): [id number] cc: Shruti Campos MD EXAMINATION: MM SCREENING [...] in OV> 08/28/23 1344 DD/ 1120 TD/TT: Protohistorian: Procedure Note Donotuseinterpreter, Image - 08/28/2023 [facility] [address] [place], [place] [address] Mammography Report Signed Patient: Bria Nevarez [facility]#: [id number] : 1980Acct:[id number] Age/Sex: 42 / FADM Date: 08/10/23 Loc: YARITZA Attending Dr: Shruti Mccain MD Ordering Physician: Shruti Campos sults: 1Negative Date of Service: 08/10/23Follow Up: 1 Year From Orig ina Mammogram Procedure(s): MM tomosynthesis screening BI Accession Number(s): [id number] cc: Shruti Campos MD EXAMINATION: MM SCREENING [...] in OV> 08/28/23 1344 DD/ 1120 TD/TT: Protohistorian: us Shruti Handy MD IMG BI PROCEDURES Final Result * Hepatitis C Antibody with Reflex to HCV, RNA, Quantitative, Real-Time PCR (06/20/2023 1:38 PM EDT) Hepatitis C Antibody Nonreactive Nonreactive [facility] Comment:Antibodies to HCV no t detected; does not exclude early acuteHCV infection. Blood Venous blood specimen / Unknown 06/20/2023 1:38 PM EDT 06/20/2023 1:38 PM EDT Shruti Handy MD LAB BLOOD ORDERAB LES Final Result [facility] [address] [place] [phone] * HIV-1/2 Antigen and Antibodies, Fourth Generation, with Reflexes (06/20/2023 1:38 PM EDT) HIV AB/AG Nonreactive Nonreactive [facility] Comment:HIV-1 p24 Ag and/or HIV-1/HIV-2 Ab not detected.A test result that is nonreactive does not exclude thepossibility of exposure to or infection with HIV-1 and/orHIV-2. Nonreactive results in this assay for individualswith prior exposure to HIV-1 and/or HIV-2 may be due toantigen and antibody levels that are below the limit ofdetection of this assay.The OVIA HIV Ag/Ab Combo assay result andsupplemental assay results should be interpreted inconjunction with the patient's clinical presentation,history and other laboratory results. If the results areinconsistent with clinical evidence, additional testing issuggested to confirm the result. Blood Venous blood specimen / Unknown 06/20/2023 1:38 PM EDT 06/20/2023 1:38 PM EDT us Shruti Handy MD LAB BLOOD ORDERAB LES Final Result [facility] [address] [place] [address] [phone] from Last 3 Months or Most Recently Relevant to Health Maintenance Insurance [facility] C3 Care Teams Asphalt Blender Relationship Specialty Start Date End Date Shruti Campos MD [address] [place] [phone] PCP - General Internal Medicine 05/11/23
--- OUTSIDE RECORDS SUMMARY | 2024-12-05 14:50 | XMS_ITS | Encounter Summary ---
Author Organization [employer] Address [address] [place] [address] 7t [place] [address] Care Team Providers Care Mva Still Operator Name Role Phone Shruti Campos MD Primary Care Pro vider Reason for Visit * Reason Onset Date Comments Med Refill 02/18/2024 Encounter Details Date Type Department Care Team ([facility] st Contact Info) Description 02/18/2024 Refill [facility] [address] [place] [address] Shruti Campos MD [address] [place] [address] Social History Tobacco Use Types Packs/Day Years [...] Visit [facility] [address] [place] [phone] Shruti Campos MD [address] [place] [phone] documented as of this encounter Visit Diagnoses Not on filedocumented in this encounter Additional Health Concerns Assessment Noted Time PHQ-9 Depression Total Score: 18 024 12:25 PM EST documented as of this encounter Care Teams Mva Still Operator Relationship Specialty Start Date End Date Shruti Campos MD [address] [place] [address] [phone] PCP - General Internal Medicine 05/11/23 documented as of this encounter
--- OUTSIDE RECORDS SUMMARY | 2024-12-05 14:50 | XMS_ITS | Encounter Summary ---
Author Organization [employer] Address [address] [place] [address] [address] [place] [address] Care Team Providers Care Mechanical Ordnance Assembler Name Role Phone Shruti Campos MD Primary Care Pro vider Reason for Visit * Reason Onset Date Comments Nurse Triage 04/01/2024 Encounter Details Date Type Department Care Team ([facility] st Contact Info) Description 04/01/2024 Telephone [facility] [address] [place], [place] [phone] Shruti Campos MD [address] [place] [address] Nurse Triage Social History Tobacco Use Types [...] 1.5mg as prescribed at that time (only care information associate found on chart). Pt reports thatwas an [...] to touch The caller accepted this outcome. [phone] documented in this encounter Plan of Treatment Upcoming Encounters Date Type Department Care Team (Late st Contact Info) Description 12/18/2024 1:30 PM EDT Office Visit [facility] [address] [place] [address] [phone] Shruti Campos MD [address] [place] [phone] documented as of this encounter Visit Diagnoses Not on filedocumented in this encounter Additional Health Concerns Assessment Noted Time PHQ-9 Depression Total Score: 18 024 12:25 PM EST documented as of this encounter Care Teams Mechanical Ordnance Assembler Relationship Specialty Start Date End Date Shruti Camops MD [address] [place] [phone] PCP - General Internal Medicine 05/11/23 documented as of this encounter
--- OUTSIDE RECORDS SUMMARY | 2024-12-05 14:50 | XMS_ITS | Encounter Summary ---
Author Organization [employer] Address [address] [facility] 7t [place] [address] Care Team Providers Care Flight Radio Officer Name Role Phone Shruti Campos MD Primary Care Pro vider Reason for Visit * Reason Comments Med Refill Encounter Details Date Type Department Care Team ([facility] Contact Info) Description 12/16/2023 Refill [facility] [address] [place], [place] [phone] Shruti Campos MD [address] [place] [address] Social History Tobacco Use Types Packs/Day Years [...] 1:30 PM EDT Office Visit [facility] [address] [place] [phone] Shruti Campos MD [address] [place] [phone] documented as of this encounter Visit Diagnoses Not on filedocumented in this encounter Additional Health Concerns Assessment Noted Time PHQ-9 Depression Total Score: 18 024 12:25 PM EST documented as of this encounter Care Teams Flight Radio Officer Relationship Specialty Start Date End Date Shruti Campos MD [address] [place] [phone] PCP - General Internal Medicine 05/11/23 documented as of this encounter
--- OUTSIDE RECORDS SUMMARY | 2024-12-05 14:50 | XMS_ITS | Encounter Summary ---
Author Organization [facility] Address [address] [place] [address] Care Team Providers Care Steam Locomotive Firer/Fireman Name Role Phone Paul Mix MD Primary Care Provider [phone] Lisette Murillo Primary Care Provider [phone] Encounter Details Date Type Department Care Team ([facility] st Contact Info) Description 04/30/2013 Orders Only [facility] Orthopedic Surgery [address] [phone] Mandeep Kirk MD [address] [place] [address] Social History Tobacco Use Types Packs/Day Years [...] leg documented in this encounter Care Teams Steam Locomotive Firer/Fireman Relationship Specialty Start Date End Date Paul Mix MD [facility] [address] [place] [address] PCP - General 05/25/09 11/19/14 Lisette Murillo [address] [address] PCP - General Internal Medicine 11/20/14 documented as of this encounter
--- OUTSIDE RECORDS SUMMARY | 2024-12-05 14:50 | XMS_ITS | Encounter Summary ---
Author Organization [facility] Address [address] [place] [address] Care Team Providers Care Adult Parole Officer Name Role Phone Paul Mix MD Primary Care Provider [phone] Lisette Murillo Primary Care Provider [phone] Encounter Details Date Type Department Care Team ([facility] st Contact Info) Description 08/24/2014 Orders Only [facility] [address] [place] [phone] Estephania Skelton, KSENIA [address] [place] [address] Social History Tobacco Use Types Packs/Day Years [...] of this encounter Procedures * Due to [place] [employer] law, this organization might not be sharing [...] in this encounter Results * Due to [place] [employer] law, this organization might not be sharing negative HIV tests. * (ABNORMAL) [facility]RE[facility] FPGS,HPV,CT/GC PANEL (08/24/2014 4:01 PM EDT) Clinical information NONE GIVEN [facility] Comment:{CLINICAL INFORMATIO N: {[id number]) Date last menstrual period [id number] [facility] Comment:{LMP: {[id number]) Date of previous PAP smear NONE GIVEN [facility] Comment:{PREV. PAP: {[id number]) Date of previous biopsy NONE GIVEN [facility] Comment:{PREV. BX: {[id number]) Specimen source (Cvx/Vag) Cervix, Endocervix [facility] Comment:{SOURCE: {[id number]) Statement of Adequacy (Cvx/Vag) Satisfactory for evaluation. Endocervical/hearn sformation zone component absent. [facility] Comment:{STATEMENT OF ADEQUA CY: {[id number]) General categories (Cvx/Vag) EPITHELIAL CELL ABNORMALITY(A) [facility] Comment:{GENERAL CATEGORIZAT ION: {[id number]) Cytology, Pap Smear Low Grade Squamous Intraepithelial Lesion (LSIL)(A) [facility] Comment:{INTERPRETATION/RESU LT: {[id number]) Cytology study comment (Cvx/Vag) This Pap test has been evaluated with computer assisted technology. [facility] Comment:{COMMENT: {[id number]) Associate Justice (Cvx/Vag) MPG, CT(ASCP) [facility] Comment:{STONE PLANER: { [id number]) Pathologist (Cvx/Vag) Lorena Mcgrath M.D., Board Certified in Anatomic and Clinical Pathology (electronic signature) Consulting Pathologist [facility] [address] [place] [address] [facility] Comment:{PATHOLOGIST: {[id number]) HPV MRNA E6/E7 Detected(A) Not Detected [facility] Comment: {HPV mRNA E6/E7, SUREPATH VIAL {[id number]) This test was performed using the APTIMA HPV Assay ([employer] This assay detects E6/E7 viral messenger RNA (mRNA) from 14 high-risk HPV types (16,18,31,33,35,39,45,51,52,56,58,59,66,68). The analytical performance characteristics of this assay, when used to test SurePath specimens, have been determined by [facility]. Chlamydia trachomatis rRNA NOT DETECTED NOT DETECTED [facility] Comment:{CHLAMYDIA TRACHOMAT IS RNA, TMA {[id number]) Neisseria Gonorrhoeae rRNA NOT DETECTED NOT DETECTED [facility] Comment:{NEISSERIA GONORRHOE AE RNA, TMA {[id number]) COMMENT SEE NOTE [facility] Comment: {COMMENT {[id number]) This test was performed using the APTIMA COMBO2 Assay ([employer] The analytical performance characteristics of this assay, when used to test SurePath specimens have been determined by [facility]. 08/24/2014 4:01 PM EDT 08/25/2014 1:12 AM EDT Narrative Resulting Agency Comment [id number] Estephania Skelton [facility] Aissatou l Result Performing Organization Address [facility] [place] Co de Phone Number [facility] [address] [place] [address] * RPR, (RAPID PLASMIN REAGIN) WITH REFLEX TO FTA, DIAGNOSTIC (08/24/2014 1:40 PM EDT) Reagin Ab NON-REACT LEIGH ANN NON-REACT LEIGH ANN [facility] Comment:{RPR (DX) W/REFL TIT ER AND CONFIRMATORY TESTING {[id number]) 08/24/2014 1:40 PM EDT 08/25/2014 12:58 AM EDT Narrative Resulting Agency Comment [id number] Estephania Nafisa [facility] Final Res ult Performing Organization Address [facility] [place]/[facility] Co de Phone Number [facility] [address] [place] [phone] * HEPATITIS C ANTIBODY, SERUM (08/24/2014 1:40 PM EDT) Hepatitis C virus Ab NON-REACTI VE NON-REACT LEIGH ANN [facility] Comment:{HEPATITIS C ANTIBOD Y {[id number]) Hepatitis C virus Ab Signal/Cutoff 0.07 <1.00 [facility] Comment:{SIGNAL TO CUT-OFF { [id number]) 08/24/2014 1:40 PM EDT 08/25/2014 12:58 AM EDT Narrative Resulting Agency Comment [id number] [facility] Final Res ult Performing Organization Address City/[facility] Co de Phone Number [facility] [address] [place] [address] documented in this encounter Visit Diagnoses Diagnosis Encounter for routine gynecological examination Routine gynecological examination documented in this encounter Care Teams Adult Parole Officer Relationship Specialty Start Date End Date Paul Mix MD [facility] [address] [place] [address] PCP - General 05/25/09 11/19/14 Lisette Murillo [facility] [address] [place] [address] PCP - General Internal Medicine 11/20/14 documented as of this encounter
--- OUTSIDE RECORDS SUMMARY | 2024-12-05 14:50 | XMS_ITS | Clinical Summary ---
Author Organization [facility] Address [address] [place] [address] Care Team Providers Care Girl Friday Name Role Phone Unavailable Primary Care Provider [...] absorb on its own. Follow up with ASSOCIATE SOFTWARE DEVELOPMENT ENGINEER in 2-3 weeks to discuss management [...] scheduled for 05/01 at 11:15 AM at [facility] Essential hypertension 04/23/2017 Assessment & Plan [...] asymptomatic. Recommend follow up with Dr. Liriano -ASSOCIATE SOFTWARE DEVELOPMENT ENGINEER in 2-3 weeks after discharge. Patient to [...] PRN for SOB - Supplemental O2 by RI for O2 sats <92 - Dextromorphan PRN [...] Type Department Care Team Description 09/10/2024 Telephone [facility] [address] [place] [phone] Stone Product Fabricator: Mckayla Mcgee MA from Last 3 Months [...] Discontinued Procedures * Due to [place] [employer] law, this organization might not be sharing negative HIV tests. Procedure Name Priority Date/Time Associated Diagnosis Comments POCT HEMOGLOBIN A1C, CMG, NON-INTERFACED Routine 06/05/2022 11:58 AM EDT Type 2 diabetes mellitus with other specified complication, unspecified whether assistant terminal manager insulin use BASIC METABOLIC PANEL STAT 06/02/2022 12:15 PM EDT [facility] W/HPV, MRNA E6/E7, REFLEX 16/18/45 Routine 08/08/2017 11:00 AM EDT Screening for malignant neoplasm of cervix Screening for human papillomavirus HEPATITIS C ANTIBODY, CONVERSION Routine 09/16/2010 12:21 PM EDT from Last 3 Months or Most Recently Relevant to Health Maintenance Results * Due to [place] [employer] law, this organization might not be sharing [...] - 18 mg/dL 06/02/2022 1:07 PM EDT [facility] Creatinine 0.98 0.60 - 1.30 mg/dL 06/02/2022 1:07 PM EDT [facility] Glucose 129(H) 70 - 99 mg/dL 06/02/2022 1:07 PM EDT [facility] Calcium 9.6 8.5 [...] BLOOD ORDERABLES Final Result Performing Organization Address City/State/[facility] Co de Phone Number [address] [address], * (ABNORMAL) [facility] Pap w/HPV, mRNA E6/E7, Reflex 16/18/45 (08/08/2017 11:00 AM EDT) Pathologist [facility] TIS, mRNA E6/E7 Jessica See Below(A) [facility]Channel Comment: TIS,mRNA E6/E7 JESSICA CLINICAL INFORMATION: None given LMP: 07/11/17 PREV. PAP: 2010 PAP LGSIL PREV. BX: NONE GIVEN SOURCE: Cervix, Endocervix STATEMENT OF ADEQUACY: Satisfactory for evaluation. Endocervical/transformation zone component present. GENERAL CATEGORIZATION: EPITHELIAL CELL ABNORMALITY INTERPRETATION/RESULT: Low Grade Squamous Intraepithelial Lesion (LSIL) COMMENT: This Pap test has been evaluated with computer assisted technology. PICTURE ENGRAVER: SHARI ALMONTE(ASCP) CT screening location: [address] [address] PATHOLOGIST: Maxwell Oreilly M.D. Direct , Board Certified in Anatomic and Clinical Pathology and Cytopathology (electronic signature) Consulting Pathologist [facility] [address] [place] [address] HPV mRNA E6/E7 Not Detected REFERENCE RANGE: Not Detected This test was performed using the APTIMA HPV Assay ([employer] This assay detects E6/E7 viral messenger [...] ORDER STELLA Final Result [facility] [address] [facility] [address]rd [address], [place] [address], [place] [phone] [facility] [address] [facility] [address], [place] [address], [place] [phone] * HEPATITIS C ANTIBODY, CONVERSION (09/16/2010 12:21 PM EDT) Hepatitis C Antibody <0.02 <1.00 IV [facility] Comment: Negative Not infected with HCV, unless recent infection is suspected or other evidence exists to indicate HCV infection. 09/16/2010 12:2 1 PM EDT 09/16/2010 1:08 PM EDT us Paula Valdez MD LAB HISTORICAL RESULTS F inal Result [facility] [address] [place] [address], from Last 3 Months or Most Recently Relevant to Health [place] [address] [place], [place] [address] Advance Directives Documents on File Type Date Recorded Patient Fire Support Man Expl 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
--- OUTSIDE RECORDS SUMMARY | 2024-12-05 14:50 | XMS_ITS | Encounter Summary ---
Author Organization [employer] Address [address] [facility] 7t [place] [address] Care Team Providers Care Die Casting Machine Setter Name Role Phone Shruti Campos MD Primary Care Pro vider Reason for Visit * Reason Comments Med Change Request Encounter Details Date Type Department Care Team ([facility] Contact Info) Description 02/12/2024 Refill [facility] [address] [place], [place] [phone] Shruti Campos MD [address] [place] [address] Social History Tobacco Use Types Packs/Day Years [...] Description 12/18/2024 1:30 PM EDT Office Visit [facility] [address] [place] [address] Shruti Campos MD [address] [place] [address] documented as of this encounter Visit Diagnoses Not on filedocumented in this encounter Additional Health Concerns Assessment Noted Time PHQ-9 Depression Total Score: 18 024 12:25 PM EST documented as of this encounter Care Teams Die Casting Machine Setter Relationship Specialty Start Date End Date Shruti Campos MD [address] [place] [address] PCP - General Internal Medicine 05/11/23 documented as of this encounter
--- OUTSIDE RECORDS SUMMARY | 2024-12-05 14:50 | XMS_ITS | Encounter Summary ---
Author Organization [employer] Address [address] [facility] 7t [place] [address] Care Team Providers Care Blade Grinder Name Role Phone Shruti Campos MD Primary Care Pro vider Reason for Visit * Reason Comments Med Refill Encounter Details Date Type Department Care Team ([facility] st Contact Info) Description 01/14/2024 Refill [facility] [address] [place], [place] [phone] Shruti Campos MD [address] [place] [address] Social History Tobacco Use Types Packs/Day Years [...] 1:30 PM EDT Office Visit [facility] [address] [place] [address] Shruti Campos MD [address] [place] [address] documented as of this encounter Visit Diagnoses Not on filedocumented in this encounter Additional Health Concerns Assessment Noted Time PHQ-9 Depression Total Score: 18 024 12:25 PM EST documented as of this encounter Care Teams Blade Grinder Relationship Specialty Start Date End Date Shruti Campos MD [address] [place] [address] PCP - General Internal Medicine 05/11/23 documented as of this encounter
--- OUTSIDE RECORDS SUMMARY | 2024-12-05 14:50 | XMS_ITS | Encounter Summary ---
Author Organization [employer] Address [address] [facility] 7t [place] [address] Care Team Providers Care Men'S Designer Name Role Phone Shruti Campos MD Primary Care Pro vider Reason for Visit * Reason Comments Med Refill Encounter Details Date Type Department Care Team ([facility] Contact Info) Description 10/06/2024 Refill [facility] [address] [place], [place] [phone] Shruti Campos MD [address] [place] [address] Social History Tobacco Use Types Packs/Day Years [...] Description 12/18/2024 1:30 PM EDT Office Visit [facility] [address] [place] [address] Shruti Campos MD [address] [place] [address] documented as of this encounter Visit Diagnoses Not on filedocumented in this encounter Additional Health Concerns Assessment Noted Time PHQ-9 Depression Total Score: 0 07/22/19 25 1:07 PM EDT documented as of this encounter Care Teams Men'S Designer Relationship Specialty Start Date End Date Shruti Campos MD [address] [place] [address] PCP - General Internal Medicine 05/11/23 documented as of this encounter
--- OUTSIDE RECORDS SUMMARY | 2024-12-05 14:50 | XMS_ITS | Encounter Summary ---
Author Organization [employer] Address [address] [place] [address] 7t [place] [address] Care Team Providers Care Continuous Washer Operator Name Role Phone Shruti Campos MD Primary Care Pro vider Encounter Details Date Type Department Care Team ([facility] st Contact Info) Description 11/03/2024 Results Follow-Up [facility] [address] [place] [address] Shruti Campos MD [address] [place] [address] ~PT, ~INR - ANTI COAG CLINIC, PROTHROMBIN [...] Miscellaneous Notes * Result Encounter Note - Srhuti Handy MD - 11/03/2024 2:32 PM EDT On AC-Goal 2-3 -Pt follows at coumadin clinic at [facility] documented in this encounter Plan of Treatment Upcoming Encounters Date Type Department Care Team (Late st Contact Info) Description 12/18/2024 1:30 PM EDT Office Visit [facility] [address] [place], [place] [phone] Shruti Campos MD [address] [place] [address] documented as of this encounter Visit Diagnoses Not on filedocumented in this encounter Additional Health Concerns Assessment Noted Time PHQ-9 Depression Total Score: 0 07/22/19 25 1:07 PM EDT documented as of this encounter Care Teams Continuous Washer Operator Relationship Specialty Start Date End Date Shruti Campos MD [address] [place] [phone] PCP - General Internal Medicine 05/11/23 documented as of this encounter
--- OUTSIDE RECORDS SUMMARY | 2024-12-05 14:50 | XMS_ITS | Clinical Summary ---
Author Organization [facility] Address [address] [place] [address] Care Team Providers Care Electrical & Instrumentation Supervisor Name Role Phone Lisette Murillo Shelia Primary Care Provider [phone] Allergies No known active allergies Medications Oxycodone-Acetamin [...] MG Tab 1 TABLET twice daily Active Ezvdjyhylx-DVAH-Rn ffeine (FIORICET) 50-300-40 MG Cap 1 OR [...] complete this topic Procedures * Due to [place] [employer] law, this organization might not be sharing [...] to Health Maintenance Results * Due to [place] [employer] law, this organization might not be sharing negative HIV tests. * (ABNORMAL) [facility] FPGS,HPV,CT/GC PANEL (08/24/2014 4:01 PM EDT) Clinical information NONE GIVEN [facility] Comment:{CLINICAL INFORMATIO N: {[id number]) Date last menstrual period [id number] [facility] Comment:{LMP: {[id number]) Date of previous PAP smear NONE GIVEN [facility] Comment:{PREV. PAP: {[id number]) Date of previous biopsy NONE GIVEN [facility] Comment:{PREV. BX: {[id number]) Specimen source (Cvx/Vag) Cervix, Endocervix [facility] Comment:{SOURCE: {[id number]) Statement of Adequacy (Cvx/Vag) Satisfactory for evaluation. Endocervical/hearn sformation zone component absent. [facility] Comment:{STATEMENT OF ADEQUA CY: {[id number]) General categories (Cvx/Vag) EPITHELIAL CELL ABNORMALITY(A) [facility] Comment:{GENERAL CATEGORIZAT ION: {[id number]) Cytology, Pap Smear Low Grade Squamous Intraepithelial Lesion (LSIL)(A) [facility] Comment:{INTERPRETATION/RESU LT: {[id number]) Cytology study comment (Cvx/Vag) This Pap test has been evaluated with computer assisted technology. [facility] Comment:{COMMENT: {[id number]) Vice Provost (Cvx/Vag) MPG, CT(ASCP) [facility] Comment:{HARDENING MACHINE OPERATOR HELPER: { [id number]) Pathologist (Cvx/Vag) Lorena Mcgrath M.D., Board Certified in Anatomic and Clinical Pathology (electronic signature) Consulting Pathologist [facility] [address] [place] [address] [facility] Comment:{PATHOLOGIST: {[id number]) HPV MRNA E6/E7 Detected(A) Not Detected [facility] Comment: {HPV mRNA E6/E7, SUREPATH VIAL {[id number]) This test was performed using the APTIMA HPV Assay ([employer] This assay detects E6/E7 viral messenger RNA (mRNA) from 14 high-risk HPV types (16,18,31,33,35,39,45,51,52,56,58,59,66,68). The analytical performance characteristics of this assay, when used to test SurePath specimens, have been determined by [facility]. Chlamydia trachomatis rRNA NOT DETECTED NOT DETECTED [facility] Comment:{CHLAMYDIA TRACHOMAT IS RNA, TMA {[id number]) Neisseria Gonorrhoeae rRNA NOT DETECTED NOT DETECTED [facility] Comment:{NEISSERIA GONORRHOE AE RNA, TMA {[id number]) COMMENT SEE NOTE [facility] Comment: {COMMENT {[id number]) This test was performed using the APTIMA COMBO2 Assay ([employer] The analytical performance characteristics of this assay, when used to test SurePath specimens have been determined by [facility]. 08/24/2014 4:01 PM EDT 08/25/2014 1:12 AM EDT Narrative Resulting Agency Comment [id number] Estephania Skelton [facility]-INTER[facility]ED Aissatou l Result Performing Organization Address [facility] Co de Phone Number [facility] [address] [place] [address] * HEPATITIS C ANTIBODY, SERUM (08/24/2014 1:40 PM EDT) Hepatitis C virus Ab NON-REACTI VE NON-REACT LEIGH ANN [facility] Comment:{HEPATITIS C ANTIBOD Y {[id number]) Hepatitis C virus Ab Signal/Cutoff 0.07 <1.00 [facility] Comment:{SIGNAL TO CUT-OFF { [id number]) 08/24/2014 1:40 PM EDT 08/25/2014 12:58 AM EDT Narrative Resulting Agency Comment [id number] Estephania Skelton [facility] Final Res ult Performing Organization Address [facility] de Phone Number [facility] [address] [place] [address] from Last 3 Months or Most Recently Relevant to Health Maintenance Insurance MEDICAID * Guarantor: [id number] [employer] Account Type Relation to Patient Date of Phone Billing Address Worker's Comp [address] [place] [address] WORKERS COMPENSATION Care Teams Electrical & Instrumentation Supervisor Relationship Specialty Start Date End Date Lisette Murillo [address] [place] [address] PCP - General Internal Medicine 11/20/14
--- OUTSIDE RECORDS SUMMARY | 2024-12-05 14:51 | XMS_ITS | Patient Health Record ---
Author Organization [facility] Address [address] [place] [address] Care Team Providers Care Contact Printer Dry Film Name Role Phone Ellis Lee Primary Care Provider UnavailTom Salguero Unavailable Allergies [...] Status Risk Notes Problem Paroxysmal atrial fibrillation (360493315) Paroxysmal atrial fibrillation (I48.0) Active confirmed Problem Mild intermittent asthma (976181419) Mild intermittent asthma, uncomplicated (J45.20) Active confirmed 2 Problem Obstructive sleep apnea syndrome (disorder) (72798963) Obstructive sleep apnea (adult) (pediatric) (G47.33) Active confirmed Problem Morbid obesity (disorder) (799463681) Morbid (severe) obesity due to excess calories (E66.01) Active confirmed Problem Adjustment disorder with anxiety (88764049) Adjustment disorder with anxiety (F43.22) Active confirmed Problem Anxiety (79383150) Anxiety (F41.9) Active confirmed Problem Essential hypertension (39531234) Essential hypertension (I10) Active confirmed Problem Essential hypertension (76733455) Accelerated hypertension (I10) Active confirmed 2 Problem Obstructive sleep apnea syndrome (11564029) ANGELA (obstructive sleep apnea) (G47.33) Active confirmed Problem Atrial fibrillation (26225698) Atrial fibrillation, unspecified type (I48.91) Active confirmed Plan Of Treatment Pending Test Test Name Order Date [facility]ocardiogram Hospital 06/11/2013 [facility] Hospital 04/24/2017 Future Test Test Name Order Date Chem 7 (BUN, Cr, Lytes, Glu) 03/16/2017 Insurance Providers Payer Name Payer Address Payer Phone Subscriber Number Group Number Insured Name Patient Relationship to Insured Coverage Start Date Coverage End Date [facility] MEDICAID [address] [place] [id number] Bria Morrison Self - patient is the insured 3 Medical (General) History Medical History History ICD Code preserved LV function with EF 65-70% by echo Apr paroxysmal atrial fibrillati on, rate conrol/AC, AUE0AK2-ASHy = 2, HTN, female moderate to severe concentric LVH by ech o Apr resistant hypertension asthma obstructive sleep apnea obesity anxiety ruptured ovarian cyst/hemato ma peritoneum requiring reversal of oral anticoagulation July 2017
--- OUTSIDE RECORDS SUMMARY | 2024-12-05 14:51 | XMS_ITS | Encounter Summary ---
Author Organization [employer] Address [address] [place] [address] 7t [place] [address] Care Team Providers Care International Flight Attendant Name Role Phone Shruti Campos MD Primary Care Pro vider Encounter Details Date Type Department Care Team ([facility] st Contact Info) Description 12/05/2024 Results Follow-Up [facility] [address] [place] [address] Shruti Campos MD [address] [place] [address] ~PT, ~INR - ANTI COAG CLINIC, PROTHROMBIN [...] Encounter Note - Shruti Handy MD - 12/05/2024 1:51 PM EDT On AC-Goal 2-3 -Pt follows at coumadin clinic at [facility] documented in this encounter Plan of Treatment Upcoming Encounters Date Type Department Care Team (Late st Contact Info) Description 12/18/2024 1:30 PM EDT Office Visit [facility] [address] [place], [place] [phone] Shruti Capmos MD [address] [place] [address] documented as of this encounter Visit Diagnoses Not on filedocumented in this encounter Additional Health Concerns Assessment Noted Time PHQ-9 Depression Total Score: 0 07/22/19 25 1:07 PM EDT documented as of this encounter Care Teams International Flight Attendant Relationship Specialty Start Date End Date Shruti Campos MD [address] [place] [address] [phone] PCP - General Internal Medicine 05/11/23 documented as of this encounter
--- OUTSIDE RECORDS SUMMARY | 2024-12-05 14:51 | XMS_ITS | Encounter Summary ---
Author Organization [employer] Address [address] [place] [address] 7 [place] [address] Care Team Providers Care Post Production Assistant Name Role Phone Shruti Campos MD Primary Care Pro vider Reason for Visit * Reason Onset Date Comments Med Refill 07/23/2024 Encounter Details Date Type Department Care Team ([facility] st Contact Info) Description 07/23/2024 Refill [facility] [address] [place] [address] Shruti Campos MD [address] [place] [address] Social History Tobacco Use Types Packs/Day Years [...] Description 12/18/2024 1:30 PM EDT Office Visit [facility] [address] [place] [address] Shruti Campos MD [address] [place] [phone] documented as of this encounter Visit Diagnoses Not on filedocumented in this encounter Additional Health Concerns Assessment Noted Time PHQ-9 Depression Total Score: 0 07/22/19 25 1:07 PM EDT documented as of this encounter Care Teams Post Production Assistant Relationship Specialty Start Date End Date Shruti Campos MD [address] [place] [phone] PCP - General Internal Medicine 05/11/23 documented as of this encounter
--- OUTSIDE RECORDS SUMMARY | 2024-12-05 14:51 | XMS_ITS | Encounter Summary ---
Author Organization [employer] Address [address] [facility] 7t [place] [address] Care Team Providers Care Parts Sales Representative Name Role Phone Shruti Campos MD Primary Care Pro vider Encounter Details Date Type Department Care Team (Latest Contact Info) Description 10/27/2024 Results Follow-Up [facility] [address] [place] [phone] Shruti Campos MD [address] [place] [address] CBC auto differential, Prothrombin Time-INR, Comprehensive Metabolic [...] Description 12/18/2024 1:30 PM EDT Office Visit [facility] [address] [place] [address] Shruti Campos MD [address] [place] [address] documented as of this encounter Visit Diagnoses Not on filedocumented in this encounter Additional Health Concerns Assessment Noted Time PHQ-9 Depression Total Score: 0 07/22/19 25 1:07 PM EDT documented as of this encounter Care Teams Parts Sales Representative Relationship Specialty Start Date End Date Shruti Campos MD [address] [place] [phone] PCP - General Internal Medicine 05/11/23 documented as of this encounter
--- OUTSIDE RECORDS SUMMARY | 2024-12-05 14:51 | XMS_ITS | Encounter Summary ---
Author Organization [employer] Address [address] [place] [address] 7t [place] [address] Care Team Providers Care Court Recorder Name Role Phone Shruti Campos MD Primary Care Pro vider Encounter Details Date Type Department Care Team ([facility] st Contact Info) Description 10/20/2024 Results Follow-Up [facility] MED[facility]INE [address] [place] [address] Shruti Campos MD [address] [place] [address] ~PT, ~INR - ANTI COAG CLINIC, PROTHROMBIN [...] 2-3 -Pt follows at coumadin clinic at [facility] documented in this encounter Plan of Treatment Upcoming Encounters Date Type Department Care Team (Late st Contact Info) Description 12/18/2024 1:30 PM EDT Office Visit [facility]INE [address] [place], [place] [phone] Shruti Campos MD [address] [place] [address] documented as of this encounter Visit Diagnoses Not on filedocumented in this encounter Additional Health Concerns Assessment Noted Time PHQ-9 Depression Total Score: 0 07/22/19 25 1:07 PM EDT documented as of this encounter Care Teams Court Recorder Relationship Specialty Start Date End Date Shruti Campos MD [address] [place] [address] [phone] PCP - General Internal Medicine 05/11/23 documented as of this encounter
--- OUTSIDE RECORDS SUMMARY | 2024-12-05 14:51 | XMS_ITS | Encounter Summary ---
Author Organization [employer] Address [address] [facility] 7t [place] [address] Care Team Providers Care Laminator Printed Circuit Boards Name Role Phone Shruti Campos MD Primary Care Pro vider Reason for Visit * Reason Comments Med Refill Encounter Details Date Type Department Care Team ([facility] Contact Info) Description 12/04/2024 Refill [facility] [address] [place] [address] Shruti Campos MD [address] [place] [address] Social History Tobacco Use Types Packs/Day Years [...] 12/18/2024 1:30 PM EDT Office Visit [facility] [address] [place] [phone] Shruti Campos MD [address] [place] [address] [phone] documented as of this encounter Visit Diagnoses Not on filedocumented in this encounter Additional Health Concerns Assessment Noted Time PHQ-9 Depression Total Score: 0 07/22/19 25 1:07 PM EDT documented as of this encounter Care Teams Laminator Printed Circuit Boards Relationship Specialty Start Date End Date Shruti Campos MD [address] [place] [phone] PCP - General Internal Medicine 05/11/23 documented as of this encounter
--- OUTSIDE RECORDS SUMMARY | 2024-12-05 14:51 | XMS_ITS | Encounter Summary ---
Author Organization [employer] Address [address] [place] [address] 7t [place] [address] Care Team Providers Care Project/Production Manager Imaging Name Role Phone Shruti Campos MD Primary Care Pro vider Reason for Visit * Reason Onset Date Comments Med Refill 06/23/2024 Encounter Details Date Type Department Care Team ([facility] st Contact Info) Description 06/23/2024 Refill [facility] [address] [place] [address] Ryanne Vega MD [address] [place] [address] Social History Tobacco Use Types Packs/Day Years [...] Upcoming Encounters Date Type Department Care Team ([facility] st Contact Info) Description 12/18/2024 1:30 PM EDT Office Visit [facility] [address] [place] [address] [phone] Shruti Campos MD [address] [place] [phone] documented as of this encounter Visit Diagnoses Not on filedocumented in this encounter Additional Health Concerns Assessment Noted Time PHQ-9 Depression Total Score: 18 024 12:25 PM EST documented as of this encounter Care Teams Project/Production Manager Imaging Relationship Specialty Start Date End Date Shruti Campos MD [address] [place] [address] [phone] PCP - General Internal Medicine 05/11/23 documented as of this encounter
--- OUTSIDE RECORDS SUMMARY | 2024-12-05 14:51 | XMS_ITS | Encounter Summary ---
Author Organization [employer] Address [address] [place] [address] 7t [place] [address] Care Team Providers Care Hospital Product Specialist Name Role Phone Shruti Campos MD Primary Care Pro vider Reason for Visit * Reason Onset Date Comments Med Refill 06/23/2024 Encounter Details Date Type Department Care Team ([facility] st Contact Info) Description 06/23/2024 Refill [facility] [address] [place], [place] [phone] Rosana Jaramillo MD 230 [place] [address] Anxiety Social History Tobacco Use Types Packs/Day [...] Description 12/18/2024 1:30 PM EDT Office Visit [facility] [address] [place] [address] Shruti Campos MD [address] [place] [phone] documented as of this encounter Visit Diagnoses Diagnosis Anxiety Anxiety state, unspecified documented in this encounter Additional Health Concerns Assessment Noted Time PHQ-9 Depression Total Score: 18 024 12:25 PM EST documented as of this encounter Care Teams Hospital Product Specialist Relationship Specialty Start Date End Date Shruti Campos MD [address] [place] [phone] PCP - General Internal Medicine 05/11/23 documented as of this encounter
--- OUTSIDE RECORDS SUMMARY | 2024-12-05 14:51 | XMS_ITS | Encounter Summary ---
Author Organization [employer] Address [address] [place] [address] 7t [place] [address] Care Team Providers Care Weed Inspector Name Role Phone Shruti Campos MD Primary Care Pro vider Reason for Visit * Reason Onset Date Comments Med Refill 06/23/2024 Encounter Details Date Type Department Care Team ([facility] st Contact Info) Description 06/23/2024 Refill [facility] [address] [place] [address] Shruti Campos MD [address] [place] [address] Social History Tobacco Use Types Packs/Day Years [...] Description 12/18/2024 1:30 PM EDT Office Visit [facility] [address] [place] [address] Shruti Campos MD [address] [place] [phone] documented as of this encounter Visit Diagnoses Not on filedocumented in this encounter Additional Health Concerns Assessment Noted Time PHQ-9 Depression Total Score: 18 024 12:25 PM EST documented as of this encounter Care Teams Weed Inspector Relationship Specialty Start Date End Date Shruti Campos MD [address] [place] [address] [phone] PCP - General Internal Medicine 05/11/23 documented as of this encounter
--- OUTSIDE RECORDS SUMMARY | 2024-12-05 14:51 | XMS_ITS | Encounter Summary ---
Author Organization [employer] Address [address] [place] [address] 7t [place] [address] Care Team Providers Care Sunglass Clip Attacher Name Role Phone Shruti Campos MD Primary Care Pro vider Reason for Visit * Reason Onset Date Comments Durable Medical Equipment 10/09/2023 Encounter Details Date Type Department Care Team ([facility] st Contact Info) Description 10/09/2023 Telephone [facility] MED[facility]INE [address] [place], [place] [phone] Shruti Campos MD [address] [place] [address] Durable Medical Equipment Social History Tobacco Use [...] Description 12/18/2024 1:30 PM EDT Office Visit [facility] [address] [place] [address] Shruti Campos MD [address] [place] [address] documented as of this encounter Visit Diagnoses Not on filedocumented in this encounter Additional Health Concerns Assessment Noted Time PHQ-9 Depression Total Score: 18 024 12:25 PM EST documented as of this encounter Care Teams Sunglass Clip Attacher Relationship Specialty Start Date End Date Shruti Campos MD [address] [place] [address] PCP - General Internal Medicine 05/11/23 documented as of this encounter
--- OUTSIDE RECORDS SUMMARY | 2024-12-05 14:51 | XMS_ITS | Encounter Summary ---
Author Organization [employer] Address [address] [facility] 7t [place] [address] Care Team Providers Care Baseball Pitcher Name Role Phone Shruti Campos MD Primary Care Pro vider Encounter Details Date Type Department Care Team (Late st Contact Info) Description 12/05/2024 Orders Only GENERIC EXTERNAL DATA DEPARTMENT [...] the past 12 months, has t he [employer] [place] [facility], oil or water [email or web address] threatened to shut off services in your [...] Office Visit [facility] [address] [place], [place] [phone] Shruti Campos MD [address] [place], [place] [phone] documented as of this encounter Procedures Procedure Name Priority Date/Time Associated Diagnosis Comments PROTHROMBIN TIME WHOLE BLD POC Routine 12/05/2024 1:43 PM EDT ~PT, ~INR - ANTI COAG CLINIC Routine 12/05/2024 1:43 PM EDT documented in this encounter Results * (ABNORMAL) PROTHROMBIN TIME WHOLE BLD POC (12/05/2024 1:43 PM EDT) Protime 20.8(H) 11.1 - 13.5 sec [facility] 12/05/2024 1:43 PM EDT 12/05/2024 1:45 PM EDT us Generic External Data Provider LAB BLOOD ORDERAB LES Final Result [facility] [address] [place] [address] [phone] * (ABNORMAL) ~PT, ~INR - ANTI COAG CLINIC (12/05/2024 1:43 PM EDT) Prothrombin Time INR 1.7(H) 0.9 - 1.1 [facility] Comment:METER #: [id number] TERNATIONAL NORMALIZED RATIO (INR) REFERENCE RANGES Reference [...] Provider LAB BLOOD ORDERAB LES Final Result [facility] [address] [place] [address] [phone] documented in this encounter Visit Diagnoses Not on filedocumented in this encounter Additional Health Concerns Assessment Noted Time PHQ-9 Depression Total Score: 0 07/22/19 25 1:07 PM EDT documented as of this encounter Care Teams Baseball Pitcher Relationship Specialty Start Date End Date Shruti Campos MD [address] [place] [address] PCP - General Internal Medicine 05/11/23 documented as of this encounter
== END 2024-12-05 13:57 | disposition home or self-care (01) ==
LOC: HO.ACS 13:31
PROVIDERS: PCP Student in an Organized Health Care Education/Training Program; Visit Provider Internal Medicine Medical Oncology
DX: Z79.01 Long term (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 (principal)

== ENCOUNTER → 2024-12-05 13:31 | Outpatient (BNVA) | payer MEDICAID, SELFPAY | PROVIDERS: PCP Student in an Organized Health Care Education/Training Program; Visit Provider Internal Medicine Medical Oncology | DX: I48.0 Paroxysmal atrial fibrillation (principal); Z79.01 Long term (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; Z51.81 Encounter for therapeutic drug level monitoring | CPT/HCPCS: 85610; 99211 ==

== ENCOUNTER → 2025-01-21 14:49 | Outpatient (REF) | payer MEDICAID, SELFPAY | LOC: HO.SL 14:49 | PROVIDERS: PCP Student in an Organized Health Care Education/Training Program; Visit Provider Physician Assistant Medical | DX: G47.19 Other hypersomnia (principal); I48.0 Paroxysmal atrial fibrillation; Z51.81 Encounter for therapeutic drug level monitoring; Z79.01 Long term (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 | CPT/HCPCS: 85610; 95806; 99211 ==

== ENCOUNTER → 2025-01-21 15:03 | Outpatient (BNV) | payer MEDICAID, SELFPAY | PROVIDERS: PCP Student in an Organized Health Care Education/Training Program; Visit Provider Psychiatry & Neurology Neurology | DX: G47.19 Other hypersomnia (principal) | CPT/HCPCS: 95806 ==

== ENCOUNTER 2025-02-02 13:49 | Outpatient (AMB) | payer MEDICAID, SELFPAY ==
--- NOTE | 2025-02-02 14:02 | MHC.OFFVISCO ---
Intake Intake Visit Reasons: Anticoagulation Allergies lisinopril Allergy (Mild, Verified 02/02/25 13:51) Cough duloxetine (From Cymbalta) Adverse Reaction (Verified 02/02/25 13:51) Palpitations Medication List - Last Reconciled 02/02/25 by Li Dumont RN albuterol sulfate 90 mcg/actuation (Ventolin HFA) 2 puffs inhalation Q6H PRN atorvastatin 10 mg PO DAILY bisacodyl 5 mg PO DAILY PRN blood sugar diagnostic (FreeStyle Lite Strips) As directed bupropion HCl SR (Wellbutrin SR) 150 mg PO DAILY 1 month MDD 150mg cholecalciferol (vitamin D3) 50 mcg PO DAILY clindamycin phosphate 1% topical BID clonidine HCl 0.2 mg PO BID diltiazem HCl CD 120 mg PO DAILY docusate sodium 100 mg PO BID PRN ferrous gluconate 324 mg PO 3XW lancets (FreeStyle Lancets) As directed linaclotide (Linzess) 145 mcg PO QAM loratadine 10 mg PO DAILY lorazepam 0.5 mg PO QAM PRN losartan 25 mg PO DAILY magnesium oxide 200 mg PO BID PRN metoprolol succinate ER 25 mg PO BID omeprazole 20 mg PO DAILY polyethylene glycol 3350 (Gavilax) 17 grams PO DAILY tirzepatide (Mounjaro) 10 mg subcut QWEEK warfarin 2 mg See Protocol PO DIRECTED Nursing Note INR: 2.6 in therapeutic range Medications and supplements reviewed- mounjaro increased 2 No changes in health, diet, medications, or supplements, Denies any signs and symptoms of bleeding or bruising or clotting. Bleeding, bruising, clotting discussed Nutritional guidance given Dose: 2mg daily F/U INR: 2 weeks Patient verbalizes understanding of instructions given Anti-Coag Initial Assessment Social Hx Patient Tobacco Use Status: Former Tobacco user Smoking packs per day: 0.5 alcohol intake: never Cardiovascular Hx: HTN and Arrhythmias Lung Disease HX: Asthma Endocrine Hx: Diabetes Musculoskeletal Hx: Osteoporosis Blood Disorder Hx: Anemia and Hyperlipidemia Hx: Kidney Disease Neurological Hx: Migraines/Headaches Cancer HX: No Psych. 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
--- OUTSIDE RECORDS SUMMARY | 2025-02-02 18:42 | XMS_ITS | Encounter Summary ---
Author Organization [facility] Address [address] [place] [address] Care Team Providers Care Straddle Bug Driver Name Role Phone Paul Mix MD Primary Care Provider [phone] Lisette Murillo Primary Care Provider [phone] Encounter Details Date Type Department Care Team ([facility] st Contact Info) Description 08/24/2014 Orders Only [facility] [address] [place] [phone] Estephania Skelton, KSENIA [address] [place] [address] Social History Tobacco Use Types Packs/Day Years [...] of this encounter Procedures * Due to [place] [employer] law, this organization might not be sharing [...] in this encounter Results * Due to [place] [employer] law, this organization might not be sharing negative HIV tests. * (ABNORMAL) [facility] FPGS,HPV,CT/GC PANEL (08/24/2014 4:01 PM EDT) Clinical information NONE GIVEN [facility] Comment:{CLINICAL INFORMATIO N: {[id number]) Date last menstrual period [id number] [facility] Comment:{LMP: {[id number]) Date of previous PAP smear NONE GIVEN [facility] Comment:{PREV. PAP: {[id number]) Date of previous biopsy NONE GIVEN [facility] Comment:{PREV. BX: {[id number]) Specimen source (Cvx/Vag) Cervix, Endocervix [facility] Comment:{SOURCE: {[id number]) Statement of Adequacy (Cvx/Vag) Satisfactory for evaluation. Endocervical/hearn sformation zone component absent. [facility] Comment:{STATEMENT OF ADEQUA CY: {[id number]) General categories (Cvx/Vag) EPITHELIAL CELL ABNORMALITY(A) [facility] Comment:{GENERAL CATEGORIZAT ION: {[id number]) Cytology, Pap Smear Low Grade Squamous Intraepithelial Lesion (LSIL)(A) [facility] Comment:{INTERPRETATION/RESU LT: {[id number]) Cytology study comment (Cvx/Vag) This Pap test has been evaluated with computer assisted technology. [facility] Comment:{COMMENT: {[id number]) Appliance Worker (Cvx/Vag) MPG, CT(ASCP) [facility] Comment:{GAS LEAK INSPECTOR HELPER: { [id number]) Pathologist (Cvx/Vag) Lorena Mcgrath M.D., Board Certified in Anatomic and Clinical Pathology (electronic signature) Consulting Pathologist [facility] Pathology [address] [place] [address] [facility] Comment:{PATHOLOGIST: {[id number]) HPV MRNA E6/E7 Detected(A) Not Detected [facility] Comment: {HPV mRNA E6/E7, SUREPATH VIAL {[id number]) This test was performed using the APTIMA HPV Assay ([employer] This assay detects E6/E7 viral messenger RNA (mRNA) from 14 high-risk HPV types (16,18,31,33,35,39,45,51,52,56,58,59,66,68). The analytical performance characteristics of this assay, when used to test SurePath specimens, have been determined by [employer] Chlamydia trachomatis rRNA NOT DETECTED NOT DETECTED [facility] Comment:{CHLAMYDIA TRACHOMAT IS RNA, TMA {[id number]) Neisseria Gonorrhoeae rRNA NOT DETECTED NOT DETECTED [facility] Comment:{NEISSERIA GONORRHOE AE RNA, TMA {[id number]) COMMENT SEE NOTE [facility] Comment: {COMMENT {[id number]) This test was performed using the APTIMA COMBO2 Assay ([employer] The analytical performance characteristics of this assay, when used to test SurePath specimens have been determined by [facility]. 08/24/2014 4:01 PM EDT 08/25/2014 1:12 AM EDT Narrative Resulting Agency Comment [id number] Estephania Skelton [facility]-INTERFACED Aissatou l Result Performing Organization Address [facility] Co de Phone Number [facility] [address] [place] [address] * RPR, (RAPID PLASMIN REAGIN) WITH REFLEX TO FTA, DIAGNOSTIC (08/24/2014 1:40 PM EDT) Reagin Ab NON-REACT LEIGH ANN NON-REACT LEIGH ANN [facility] Comment:{RPR (DX) W/REFL TIT ER AND CONFIRMATORY TESTING {[id number]) 08/24/2014 1:40 PM EDT 08/25/2014 12:58 AM EDT Narrative Resulting Agency Comment [id number] Estephania Nafisa [facility] Final Res ult Performing Organization Address [facility] Co de Phone Number [facility] [address] [place] [phone] * HEPATITIS C ANTIBODY, SERUM (08/24/2014 1:40 PM EDT) Hepatitis C virus Ab NON-REACTI VE NON-REACT LEIGH ANN [facility] Comment:{HEPATITIS C ANTIBOD Y {[id number]) Hepatitis C virus Ab Signal/Cutoff 0.07 <1.00 [facility] Comment:{SIGNAL TO CUT-OFF { [id number]) 08/24/2014 1:40 PM EDT 08/25/2014 12:58 AM EDT Narrative Resulting Agency Comment [id number] [facility] Final Res ult Performing Organization Address City/[facility] Co de Phone Number [facility] [address] [place] [address] documented in this encounter Visit Diagnoses Diagnosis Encounter for routine gynecological examination Routine gynecological examination documented in this encounter Care Teams Straddle Bug Driver Relationship Specialty Start Date End Date Paul Mix MD [facility] [address] [place] [address] PCP - General 05/25/09 11/19/14 Lisette Murillo [facility] [address] [place] [address] PCP - General Internal Medicine 11/20/14 documented as of this encounter
--- OUTSIDE RECORDS SUMMARY | 2025-02-02 18:42 | XMS_ITS | Clinical Summary ---
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 Follow up with VETERINARY EPIDEMIOLOGIST in 2-3 weeks to discuss management of [...] 05/01 at 11:15 AM at [facility] Essential hypertension 04/23/2017 Assessment & Plan [...] asymptomatic. Recommend follow up with Dr. Liriano -VETERINARY EPIDEMIOLOGIST in 2-3 weeks after discharge. Patient to [...] PRN for SOB - Supplemental O2 by [place] for O2 sats <92 - Dextromorphan PRN [...] 03/12/2024 Influenza Vaccine (#1) 2024 01/22/2012, 2010 COVID-19 Vaccine (1 - 2024-2 6 season) 2024 DTaP,Tdap,and Td Vaccines (3 - Td or Tdap) 04/16/2027 04/16/2017, 08/29/2011 HIV Screening Completed 09/02/2010 Hepatitis C Screening Completed 09/16/2010 Hepatitis B Vaccines Discontinued Varicella Vaccines Discontinued Procedures * Due to [place] Cost Effective Data law, this organization might not be sharing negative HIV tests. Procedure Name Priority Date/Time Associated Diagnosis Comments POCT HEMOGLOBIN A1C, CMG, NON-INTERFACED Routine 06/05/2022 11:58 AM EDT Type 2 diabetes mellitus with other specified complication, unspecified whether parts counterman insulin use BASIC METABOLIC PANEL STAT 06/02/2022 12:15 PM EDT [facility] W/HPV, MRNA E6/E7, REFLEX 16/18/45 Routine 08/08/2017 11:00 AM EDT Screening for malignant neoplasm of cervix Screening for human papillomavirus HEPATITIS C ANTIBODY, CONVERSION Routine 09/16/2010 12:21 PM EDT from Last 3 Months or Most Recently Relevant to Health Maintenance Results * Due to [place] Cost Effective Data law, this organization might not be sharing [...] - 145 mmol/L 06/02/2022 1:07 PM EDT [facility] K 3.9 3.5 - 5.3 mmol/L 06/02/2022 1:07 PM EDT [facility] Cl 105 98 - 107 mmol/L 06/02/2022 1:07 PM EDT [facility] CO2 26 22 - 30 mmol/L 06/02/2022 1:07 PM EDT [facility] BUN 13 7 - 18 mg/dL 06/02/2022 1:07 PM EDT [facility] Creatinine 0.98 0.60 - 1.30 mg/dL 06/02/2022 1:07 PM EDT [facility] Glucose 129(H) 70 - 99 mg/dL 06/02/2022 1:07 PM EDT [facility] Calcium 9.6 8.5 - 10.1 mg/dL 06/02/2022 1:07 PM EDT [facility] Anion Gap 2(L) 5 - 15 06/02/2022 1:07 PM EDT [facility] eGFR 74(L) >=90 mL/min/1. 73m2 06/02/2022 1:07 PM EDT [facility] Comment: Estimated Glomerular Filtration Rate (GFR) [...] Vazquez MD LAB BLOOD ORDERABLES Final Result [facility] [address] [place] [address], [place] * (ABNORMAL) [facility] Pap w/HPV, mRNA E6/E7, Reflex 16/18/45 (08/08/2017 11:00 AM EDT) [facility] TIS, mRNA E6/E7 Jessica See Below(A) [facility] Comment: TIS,mRNA E6/E7 JESSICA CLINICAL INFORMATION: None given LMP: 07/11/17 PREV. PAP: 2010 PAP LGSIL PREV. BX: NONE GIVEN SOURCE: Cervix, Endocervix STATEMENT OF ADEQUACY: Satisfactory for evaluation. Endocervical/transformation zone component present. GENERAL CATEGORIZATION: EPITHELIAL CELL ABNORMALITY INTERPRETATION/RESULT: Low Grade Squamous Intraepithelial Lesion (LSIL) COMMENT: This Pap test has been evaluated with computer assisted technology. FOREST FIRE SPECIALIST SUPERVISOR: SHARI ALMONTE(ASCP) CT screening location: [place] [address] PATHOLOGIST: Maxwell Oreilly M.D. Direct , Board Certified in Anatomic and Clinical Pathology and Cytopathology (electronic signature) Consulting Pathologist [facility] [address] [place] [phone] HPV mRNA E6/E7 Not Detected REFERENCE RANGE: Not Detected This test was performed using the APTIMA HPV Assay ([employer] This assay detects E6/E7 viral messenger [...] ORDER STELLA Final Result [facility] [address], [place] [address], [place] [phone] [facility] [address], [place] [address], * HEPATITIS C ANTIBODY, CONVERSION (09/16/2010 12:21 PM EDT) Hepatitis C Antibody <0.02 <1.00 IV [facility] Comment: Negative Not infected with HCV, unless recent infection is suspected or other evidence exists to indicate HCV infection. 09/16/2010 12:2 1 PM EDT 09/16/2010 1:08 PM EDT aPula Valdez MD LAB HISTORICAL RESULTS F inal Result [facility] [address] [place] [address], from Last 3 Months or Most Recently Relevant to Health Maintenance [facility] [place] Advance Directives Documents on File Type Date Recorded Patient Simulation Specialist Expl anation Advance Directive 01/14/2011 12:00 [...]
--- OUTSIDE RECORDS SUMMARY | 2025-02-02 18:42 | XMS_ITS | Encounter Summary ---
Author Organization [employer] Address [address] [facility] 7t [place] [address] Care Team Providers Care County Records Management Officer Name Role Phone Shruti Campos MD Primary Care Pro vider Reason for Visit * Reason Comments Med Refill Encounter Details Date Type Department Care Team ([facility] Contact Info) Description 12/16/2023 Refill [facility] [address] [place], [place] [phone] Shruti Campos MD [address] [place] [address] Social History Tobacco Use Types Packs/Day Years [...] Care Team (Late st Contact Info) Description 02/26/2025 10:45 AM EST Office Visit [facility] [address] [place] [address] Shruti Campos MD [address] [place] [address] documented as of this encounter Visit Diagnoses Not on filedocumented in this encounter Additional Health Concerns Assessment Noted Time PHQ-9 Depression Total Score: 18 024 12:25 PM EST documented as of this encounter Care Teams County Records Management Officer Relationship Specialty Start Date End Date Shruti Campos MD [address] [place] [phone] PCP - General Internal Medicine 05/11/23 documented as of this encounter
--- OUTSIDE RECORDS SUMMARY | 2025-02-02 18:42 | XMS_ITS | Encounter Summary ---
Author Organization [employer] Address [address] [place] [address] 7[place] [address] Care Team Providers Care Property Management Intern Name Role Phone Shruti Campos MD Primary Care Pro vider Reason for Visit * Reason Onset Date Comments Durable Medical Equipment 10/09/2023 Encounter Details Date Type Department Care Team ([facility] st Contact Info) Description 10/09/2023 Telephone [facility] [address] [place] [address] Shruti Campos MD [address] [place] [address] Durable Medical Equipment Social History Tobacco Use [...] Description 02/26/2025 10:45 AM EST Office Visit [facility] [address] [place] [address] Shruti Campos MD [address] [place] [address] documented as of this encounter Visit Diagnoses Not on filedocumented in this encounter Additional Health Concerns Assessment Noted Time PHQ-9 Depression Total Score: 18 024 12:25 PM EST documented as of this encounter Care Teams Property Management Intern Relationship Specialty Start Date End Date Shruti Campos MD [address] [place] [phone] PCP - General Internal Medicine 05/11/23 documented as of this encounter
--- OUTSIDE RECORDS SUMMARY | 2025-02-02 18:42 | XMS_ITS | Clinical Summary ---
Author Organization [facility] Address [address] [place] [address] Care Team Providers Care Maintenance Man Name Role Phone Lisette Murillo Shelia Primary Care Provider [phone] Allergies No known active allergies Medications Oxycodone-Acetamin [...] MG Tab 1 TABLET twice daily Active Nmdeaxcfyp-HFCN-Pp ffeine (FIORICET) 50-300-40 MG Cap 1 OR [...] Mammogram/Breast Imaging 2019 COVID-19 Vaccine ( - 2024-2 6 season) 2024 Influenza (#1) 2024 Zoster (Shingrix) [...] complete this topic Procedures * Due to [place] Rapid Pathogen Screening law, this organization might not be sharing [...] to Health Maintenance Results * Due to [place] Rapid Pathogen Screening law, this organization might not be sharing negative HIV tests. * (ABNORMAL) SUREPATH FPGS,HPV,CT/GC PANEL (08/24/2014 4:01 PM EDT) Clinical information NONE GIVEN [facility] Comment:{CLINICAL INFORMATIO N: {[id number]) Date last menstrual period [id number] [facility] Comment:{LMP: {[id number]) Date of previous PAP smear NONE GIVEN [facility] Comment:{PREV. PAP: {[id number]) Date of previous biopsy NONE GIVEN [facility] Comment:{PREV. BX: {[id number]) Specimen source (Cvx/Vag) Cervix, Endocervix [facility] Comment:{SOURCE: {[id number]) Statement of Adequacy (Cvx/Vag) Satisfactory for evaluation. Endocervical/hearn sformation zone component absent. [facility] Comment:{STATEMENT OF ADEQUA CY: {[id number]) General categories (Cvx/Vag) EPITHELIAL CELL ABNORMALITY(A) [facility] Comment:{GENERAL CATEGORIZAT ION: {[id number]) Cytology, Pap Smear Low Grade Squamous Intraepithelial Lesion (LSIL)(A) [facility] Comment:{INTERPRETATION/RESU LT: {[id number]) Cytology study comment (Cvx/Vag) This Pap test has been evaluated with computer assisted technology. [facility] Comment:{COMMENT: {[id number]) Parts Remover (Cvx/Vag) MPG, CT(ASCP) [facility] Comment:{AGRICULTURAL EQUIPMENT OPERATOR: { [id number]) Pathologist (Cvx/Vag) Lorena Mcgrath M.D., Board Certified in Anatomic and Clinical Pathology (electronic signature) Consulting Pathologist [facility] [address] [place] [address] [facility] Comment:{PATHOLOGIST: {[id number]) HPV MRNA E6/E7 Detected(A) Not Detected [facility] Comment: {HPV mRNA E6/E7, SUREPATH VIAL {[id number]) This test was performed using the APTIMA HPV Assay ([facility] This assay detects E6/E7 viral messenger RNA (mRNA) from 14 high-risk HPV types (16,18,31,33,35,39,45,51,52,56,58,59,66,68). The analytical performance characteristics of this assay, when used to test SurePath specimens, have been determined by [employer] [facility] Chlamydia trachomatis rRNA NOT DETECTED NOT DETECTED [facility] Comment:{CHLAMYDIA TRACHOMAT IS RNA, TMA {[id number]) Neisseria Gonorrhoeae rRNA NOT DETECTED NOT DETECTED [facility] Comment:{NEISSERIA GONORRHOE AE RNA, TMA {[id number]) COMMENT SEE NOTE [facility] Comment: {COMMENT {[id number]) This test was performed using the APTIMA COMBO2 Assay ([employer] The analytical performance characteristics of this assay, when used to test SurePath specimens have been determined by [facility]. 08/24/2014 4:01 PM EDT 08/25/2014 1:12 AM EDT Narrative Resulting Agency Comment [id number] Estephania Skelton [facility]-INTERFACED Aissatou l Result Performing Organization Address [facility] Co de Phone Number [facility] [address] [place] [address] * HEPATITIS C ANTIBODY, SERUM (08/24/2014 1:40 PM EDT) Hepatitis C virus Ab NON-REACTI VE NON-REACT LEIGH ANN [facility] Comment:{HEPATITIS C ANTIBOD Y {[id number]) Hepatitis C virus Ab Signal/Cutoff 0.07 <1.00 [facility] Comment:{SIGNAL TO CUT-OFF { [id number]) 08/24/2014 1:40 PM EDT 08/25/2014 12:58 AM EDT Narrative Resulting Agency Comment [id number] Estephania Skelton [facility] Final Res ult Performing Organization Address [facility] de Phone Number [facility] [address] [place] [address] from Last 3 Months or Most Recently Relevant to Health Maintenance Insurance MEDICAID * Guarantor: [id number] [employer] Account Type Relation to Patient Date of Phone Billing Address Worker's Comp [address] [place] [address] WORKERS COMPENSATION Care Teams Maintenance Man Relationship Specialty Start Date End Date Lisette Murillo [address] [place] [address] PCP - General Internal Medicine 11/20/14
--- OUTSIDE RECORDS SUMMARY | 2025-02-02 18:42 | XMS_ITS | Encounter Summary ---
Author Organization [employer] Address [address] [place] [address] 7t [place] [address] Care Team Providers Care Automatic Spreader Operator Name Role Phone Shruti Campos MD Primary Care Pro vider Reason for Visit * Reason Comments Med Refill Encounter Details Date Type Department Care Team ([facility] Contact Info) Description 01/29/2025 Refill [facility] [address] [place] [address] Shruti Campos MD [address] [place] [address] Morbid obesity (CMS/HCC) (HCC); Type 2 diabetes mellitus with microalbuminuria, without long-term current use of insulin (HCC) Social History Tobacco Use Types Packs/Day Years [...] Description 02/26/2025 10:45 AM EST Office Visit [facility] [address] [place] [address] Shruti Campos MD [address] [place] [address] documented as of this encounter Visit Diagnoses Diagnosis Morbid obesity (CMS/HCC) (HCC) Morbid obesity Type 2 diabetes mellitus with microalbuminuria, without long-term current use of insulin (HCC) documented in this encounter Additional Health Concerns Assessment Noted Time PHQ-9 Depression Total Score: 0 07/22/19 25 1:07 PM EDT documented as of this encounter Care Teams Automatic Spreader Operator Relationship Specialty Start Date End Date Shruti Campos MD [address] [place] [address] PCP - General Internal Medicine 05/11/23 documented as of this encounter
--- OUTSIDE RECORDS SUMMARY | 2025-02-02 18:42 | XMS_ITS | Encounter Summary ---
Author Organization [employer] Address [address] [place] [address] [address] [address] Care Team Providers Care Technician Semiconductor Development Name Role Phone Shruti Campos MD Primary Care Pro vider Reason for Visit * Reason Onset Date Comments Nurse Triage 04/01/2024 Encounter Details Date Type Department Care Team ([facility] st Contact Info) Description 04/01/2024 Telephone [facility] MEDICINE [address] [place] [address] [phone] Shruti Campos MD [address] [place] [address] Nurse Triage Social History Tobacco Use Types [...] as prescribed at that time (only information systems administrator found on chart). Pt reports thatwas an [...] to touch The caller accepted this outcome. [phone] documented in this encounter Plan of Treatment Upcoming Encounters Date Type Department Care Team (Late st Contact Info) Description 02/26/2025 10:45 AM EST Office Visit [facility] [address] [place] [address] [phone] Shruti Campos MD [address] [place] [address] documented as of this encounter Visit Diagnoses Not on filedocumented in this encounter Additional Health Concerns Assessment Noted Time PHQ-9 Depression Total Score: 18 024 12:25 PM EST documented as of this encounter Care Teams Technician Semiconductor Development Relationship Specialty Start Date End Date Shruti Campos MD [address] [place] [address] [phone] PCP - General Internal Medicine 05/11/23 documented as of this encounter
--- OUTSIDE RECORDS SUMMARY | 2025-02-02 18:42 | XMS_ITS | Encounter Summary ---
Author Organization [employer] Address [address] [place] [address] 7t [place] [address] Care Team Providers Care Interceptor Operator Name Role Phone Shruti Campos MD Primary Care Pro vider Encounter Details Date Type Department Care Team ([facility] st Contact Info) Description 12/05/2024 Results Follow-Up [facility] MEDICINE [address] [place] [address] Shruti Campos MD [address] [place] [address] ~PT, ~INR - ANTI COAG CLINIC, PROTHROMBIN [...] 2-3 -Pt follows at coumadin clinic at [facility] documented in this encounter Plan of Treatment Upcoming Encounters Date Type Department Care Team (Late st Contact Info) Description 02/26/2025 10:45 AM EST Office Visit [facility] [address] [place] [address] [phone] Shruti Campos MD [address] [place] [address] documented as of this encounter Visit Diagnoses Not on filedocumented in this encounter Additional Health Concerns Assessment Noted Time PHQ-9 Depression Total Score: 0 07/22/19 25 1:07 PM EDT documented as of this encounter Care Teams Interceptor Operator Relationship Specialty Start Date End Date Shruti Campos MD [address] [place] [address] [phone] PCP - General Internal Medicine 05/11/23 documented as of this encounter
--- OUTSIDE RECORDS SUMMARY | 2025-02-02 18:42 | XMS_ITS | Encounter Summary ---
Author Organization [facility] Address [address] [place] [address] Care Team Providers Care Leadership Recruiter Name Role Phone Paul Mix MD Primary Care Provider [phone] Lisette Murillo Primary Care Provider [phone] Encounter Details Date Type Department Care Team ([facility] st Contact Info) Description 04/30/2013 Orders Only [facility] Orthopedic Surgery [address] [address] Mandeep Kirk MD [address] [place] [address] Social History Tobacco Use Types Packs/Day Years [...] leg documented in this encounter Care Teams Leadership Recruiter Relationship Specialty Start Date End Date Paul Mix MD [facility] [address] [place] [address] PCP - General 05/25/09 11/19/14 Lisette Murillo [address] [address] PCP - General Internal Medicine 11/20/14 documented as of this encounter
--- OUTSIDE RECORDS SUMMARY | 2025-02-02 18:42 | XMS_ITS | Encounter Summary ---
Author Organization [employer] Address [address] [facility] 7t [place] [address] Care Team Providers Care Gutter Mouth Cutter Name Role Phone Shruti Campos MD Primary Care Pro vider Reason for Visit * Reason Comments Med Refill Encounter Details Date Type Department Care Team ([facility] Contact Info) Description 10/06/2024 Refill [facility] [address] [place] [address] Shruti Campos MD [address] [place] [address] Social History Tobacco Use Types Packs/Day Years [...] Description 02/26/2025 10:45 AM EST Office Visit [facility] MEDICINE [address] [place] [address] Shruti Campos MD [address] [place] [address] documented as of this encounter Visit Diagnoses Not on filedocumented in this encounter Additional Health Concerns Assessment Noted Time PHQ-9 Depression Total Score: 0 07/22/19 25 1:07 PM EDT documented as of this encounter Care Teams Gutter Mouth Cutter Relationship Specialty Start Date End Date Shruti Campos MD [address] [place] [address] PCP - General Internal Medicine 05/11/23 documented as of this encounter
--- OUTSIDE RECORDS SUMMARY | 2025-02-02 18:42 | XMS_ITS | Encounter Summary ---
Author Organization [employer] Address [address] [facility] 7t [place] [address] Care Team Providers Care Manager Transition Name Role Phone Shruti Campos MD Primary Care Pro vider Reason for Visit * Reason Comments Med Change Request Encounter Details Date Type Department Care Team ([facility] Contact Info) Description 02/12/2024 Refill [facility] [address] [place] [address] Shruti Campos MD [address] [place] [address] Social History Tobacco Use Types Packs/Day Years [...] Description 02/26/2025 10:45 AM EST Office Visit [facility] [address] [place] [address] Shruti Campos MD [address] [place] [address] documented as of this encounter Visit Diagnoses Not on filedocumented in this encounter Additional Health Concerns Assessment Noted Time PHQ-9 Depression Total Score: 18 024 12:25 PM EST documented as of this encounter Care Teams Manager Transition Relationship Specialty Start Date End Date Shruti Campos MD [address] [place] [address] PCP - General Internal Medicine 05/11/23 documented as of this encounter
--- OUTSIDE RECORDS SUMMARY | 2025-02-02 18:42 | XMS_ITS | Encounter Summary ---
Author Organization [employer] Address [address] [facility] 7t [place] [address] Care Team Providers Care Gravity Prospecting Supervisor Name Role Phone Shruti Campos MD Primary Care Pro vider Reason for Visit * Reason Comments Med Refill Encounter Details Date Type Department Care Team ([facility] st Contact Info) Description 01/14/2024 Refill [facility]INE [address] [place], [place] [phone] Shruti Campos MD [address] [place] [address] Social History Tobacco Use Types Packs/Day Years [...] Description 02/26/2025 10:45 AM EST Office Visit [facility] [address] [place] [address] Shruti Campos MD [address] [place] [address] documented as of this encounter Visit Diagnoses Not on filedocumented in this encounter Additional Health Concerns Assessment Noted Time PHQ-9 Depression Total Score: 18 024 12:25 PM EST documented as of this encounter Care Teams Gravity Prospecting Supervisor Relationship Specialty Start Date End Date Shruti Campos MD [address] [place] [address] PCP - General Internal Medicine 05/11/23 documented as of this encounter
--- OUTSIDE RECORDS SUMMARY | 2025-02-02 18:43 | XMS_ITS | Encounter Summary ---
Author Organization [employer] Address [address] [place] [address] 7t [place] [address] Care Team Providers Care Crm Functional Analyst Name Role Phone Shruti Campos MD Primary Care Pro vider Reason for Visit * Reason Onset Date Comments Med Refill 02/18/2024 Encounter Details Date Type Department Care Team ([facility] st Contact Info) Description 02/18/2024 Refill [facility] [address] [place] [address] Shruti Campos MD [address] [place] [address] Social History Tobacco Use Types Packs/Day Years [...] Description 02/26/2025 10:45 AM EST Office Visit [facility] [address] [place] [phone] Shruti Campos MD [address] [place] [phone] documented as of this encounter Visit Diagnoses Not on filedocumented in this encounter Additional Health Concerns Assessment Noted Time PHQ-9 Depression Total Score: 18 024 12:25 PM EST documented as of this encounter Care Teams Crm Functional Analyst Relationship Specialty Start Date End Date Shruti Campos MD [address] [place] [address] PCP - General Internal Medicine 05/11/23 documented as of this encounter
--- OUTSIDE RECORDS SUMMARY | 2025-02-02 18:43 | XMS_ITS | Encounter Summary ---
Author Organization [employer] Address [address] [place] [address] 7t [place] [address] Care Team Providers Care Blade Changer Name Role Phone Shruti Campos MD Primary Care Pro vider Reason for Visit * Reason Onset Date Comments Med Refill 06/23/2024 Encounter Details Date Type Department Care Team ([facility] st Contact Info) Description 06/23/2024 Refill [facility] [address] [place] [address] Rosana Jaramillo MD [address] [place] [address] Anxiety Social History Tobacco Use Types Packs/Day [...] 10:45 AM EST Office Visit [facility] [address] [place] [phone] Shruti Campos MD [address] [place] [address] documented as of this encounter Visit Diagnoses Diagnosis Anxiety Anxiety state, unspecified documented in this encounter Additional Health Concerns Assessment Noted Time PHQ-9 Depression Total Score: 18 024 12:25 PM EST documented as of this encounter Care Teams Blade Changer Relationship Specialty Start Date End Date Shruti Campos MD [address] [place] [phone] PCP - General Internal Medicine 05/11/23 documented as of this encounter
--- OUTSIDE RECORDS SUMMARY | 2025-02-02 18:43 | XMS_ITS | Encounter Summary ---
Author Organization [employer] Address [address] [place] [address] 7 [place] [address] Care Team Providers Care Fire Sprinkler Apparatus Inspector Name Role Phone Shruti Campos MD Primary Care Pro vider Reason for Visit * Reason Onset Date Comments Med Refill 07/23/2024 Encounter Details Date Type Department Care Team ([facility] st Contact Info) Description 07/23/2024 Refill [facility] [address] [place] [address] Shruti Campos MD [address] [place] [address] Social History Tobacco Use Types Packs/Day Years [...] 10:45 AM EST Office Visit [facility] [address] [place] [address] Shruti Campos MD [address] [place] [phone] documented as of this encounter Visit Diagnoses Not on filedocumented in this encounter Additional Health Concerns Assessment Noted Time PHQ-9 Depression Total Score: 0 07/22/19 25 1:07 PM EDT documented as of this encounter Care Teams Fire Sprinkler Apparatus Inspector Relationship Specialty Start Date End Date Shruti Campos MD [address] [place] [phone] PCP - General Internal Medicine 05/11/23 documented as of this encounter
--- OUTSIDE RECORDS SUMMARY | 2025-02-02 18:43 | XMS_ITS | Encounter Summary ---
Author Organization [employer] Address [address] [place] [address] 7t [place] [address] Care Team Providers Care Ocular Care Technician Name Role Phone Shruti Campos MD Primary Care Pro vider Reason for Visit * Reason Onset Date Comments Med Refill 06/23/2024 Encounter Details Date Type Department Care Team ([facility] st Contact Info) Description 06/23/2024 Refill [facility] [address] [place] [address] Ryanne Vega MD [address] [place] [address] Social History Tobacco Use Types Packs/Day Years [...] Upcoming Encounters Date Type Department Care Team ([facility] st Contact Info) Description 02/26/2025 10:45 AM EST Office Visit [facility] [address] [place] [address] Shruti Campos MD [address] [place] [phone] documented as of this encounter Visit Diagnoses Not on filedocumented in this encounter Additional Health Concerns Assessment Noted Time PHQ-9 Depression Total Score: 18 024 12:25 PM EST documented as of this encounter Care Teams Ocular Care Technician Relationship Specialty Start Date End Date Shruti Campos MD [address] [place] [address] [phone] PCP - General Internal Medicine 05/11/23 documented as of this encounter
--- OUTSIDE RECORDS SUMMARY | 2025-02-02 18:43 | XMS_ITS | Encounter Summary ---
Author Organization [employer] Address [address] [place] [address] 7t [place] [address] Care Team Providers Care Freight Loading Supervisor Name Role Phone Shruti Campos MD Primary Care Pro vider Reason for Visit * Reason Onset Date Comments Med Refill 06/23/2024 Encounter Details Date Type Department Care Team ([facility] st Contact Info) Description 06/23/2024 Refill [facility] [address] [place] [address] Shruti Campos MD [address] [place] [address] Social History Tobacco Use Types Packs/Day Years [...] Description 02/26/2025 10:45 AM EST Office Visit [facility] [address] [place] [phone] Shruti Campos MD [address] [place] [phone] documented as of this encounter Visit Diagnoses Not on filedocumented in this encounter Additional Health Concerns Assessment Noted Time PHQ-9 Depression Total Score: 18 024 12:25 PM EST documented as of this encounter Care Teams Freight Loading Supervisor Relationship Specialty Start Date End Date Shruti Campos MD [address] [place] [phone] PCP - General Internal Medicine 05/11/23 documented as of this encounter
--- OUTSIDE RECORDS SUMMARY | 2025-02-02 18:43 | XMS_ITS | Clinical Summary ---
Author Organization [employer] Address [address] [place] [address] 7t [place] [address] Care Team Providers Care Duty Officer Name Role Phone Shruti Campos MD [...] EVERY DAY 90 capsule 1 4 Active GaviLAX 17 GM/SCOOP powder TAKE 17 [...] CRUSH OR CHEW. 30 capsule 5 Active glucose blood (FREESTYLE LITE) test strip Check CBG daily 60 each 5 Active FreeStyle lancets 1 each by Other route Once per day. TEST BLOOD SUGAR ONCE A DAY 100 each 5 Active Blood Glucose Monitoring Suppl (FreeStyle Bim Lite) w/Device kitIndications :Type 2 diabetes mellitus with microalbuminur ia, without long-term current use of insulin ([facility]) Check glucose daily 1 kit 5 Active Ventolin HFA 108 (90 Base) MCG/ACT inhaler INHALE 2 PUFFS EVERY 6 HOURS IF NEEDED FOR WHEEZING. 18 g 2 5 Active cloNIDine (Catapres) 0.2 MG tablet TAKE 1 TABLET BY MOUTH TWICE A DAY 180 tablet 1 5 Active bisacodyl (Bisacodyl EC) [...] PER DAY. 90 capsule 1 5 Active metoprolol succinate XL (Toprol-XL) 25 MG 24 hr tablet TAKE 2 TABLETS (50 MG TOTAL) BY MOUTH ONCE A DAY AND 1 TABLET (25 MG TOTAL) EVERY EVENING. 270 tablet 1 5 Active loratadine (Claritin) 10 MG tablet TAKE 1 TABLET BY MOUTH EVERY DAY 90 tablet 1 5 Active buPROPion SR (Wellbutrin SR) 150 MG 12 hr tablet Take 1 tablet by mouth if needed at bedtime for anxiety. 5 Active ferrous gluconate (Fergon) 324 (38 Fe) MG tablet Take 1 tablet (324 mg) by mouth with breakfast. 90 tablet 5 Active atorvastatin (Lipitor) 10 MG tablet TAKE 1 TABLET BY MOUTH EVERY DAY 90 tablet 1 5 Active omeprazole (PriLOSEC) [address] capsule TAKE 1 CAPSULE BY MOUTH EVERY DAY 90 capsule 1 5 Active Tirzepatide (Mounjaro) 10 MG/0.5ML solution auto-injectorI ndications:Mor bid obesity (CMS/HCC) ([facility]),Type 2 diabetes mellitus with microalbuminur ia, without long-term current use of insulin ([facility]) INJECT 10 MG UNDER THE SKIN 1 (ONE) TIME PER WEEK. 0.5 mL 5 025 Active omeprazole (PriLOSEC) [address] capsule TAKE 1 CAPSULE BY MOUTH EVERY DAY 90 capsule 1 5 025 Discontinued Tirzepatide (Mounjaro) 10 MG/0.5ML solution auto-injectorI ndications:Mor bid obesity ([facility]) ([facility]),Type 2 diabetes mellitus with microalbuminur ia, without long-term current use of insulin ([facility]) Inject 10 mg under the skin 1 (one) time per week. 2 mL 5 025 Discontinued Active Problems Problem Noted Date Diagnosed Date Skin lesion 11/22/2023 Constipation 11/22/2023 Urinary incontinence 11/22/2023 Anemia 07/05/2023 History of shingles 07/05/2023 Health care maintenance 05/13/2023 Bilateral carpal tunnel syndrome 05/11/2023 Cervical radiculopathy 01/20/2022 Lumbosacral radiculopathy 01/20/2022 S/P laparoscopic sleeve gastrectomy 01/20/2022 Morbid obesity ([facility]) 09/22/2019 HAMLET (generalized anxiety disorder) 04/10/2019 Major depressive disorder, recurrent, moderate ( [facility]) 04/10/2019 Assessment & Plan (05/15/2023 8:31 AM EST): PLAN: (check all that apply) Further services needed, but declined Behavioral Health Integration Plan External OP therapy referral Patient Self Plan Patient to utilize skills provided in intervention , [facility], and Patient to reach out to [facility] as needed Mild intermittent asthma 04/10/2019 Glaucoma of left eye 02/15/2019 Chronic pain syndrome 01/20/2019 long term care social worker (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 2017 PVD (peripheral [...] absorb on its own. Follow up with [facility] in 2-3 weeks to discuss management of [...] control with her PCP. Paroxysmal atrial fibrillation (CMS/HCC) 018 Overview (05/11/2023): Last Assessment & Plan: Chads [...] Encounters Date Type Department Care Team Description 01/29/[address] [facility] [address] [place] [address] Shruti Campos MD Morbid obesity (CMS/HCC) (HCC); Type 2 diabetes mellitus with microalbuminuria, without long-term current use of insulin (HCC) 01/21/2025 Orders Only GENERIC EXTERNAL DATA DEPARTMENT Provider, Generic External Data 01/15/[address] [facility] [address] [place] [address] Shruti Campos MD 01/09/[address] [facility] [address] [place] [address] Shruti Campos MD Lab Orders 12/19/[address] [facility] [address] [place] [address] Shruti Campos MD 12/18/2024 1:30 PM EDT Office Visit [facility] [address] [place] [address] Shruti Campos MD Screening mammogram for breast cancer (Primary Dx); Morbid obesity (CMS/HCC) (HCC); Type 2 diabetes mellitus with microalbuminuria, without long-term current use of insulin (HCC); Health care maintenance; Excessive bleeding in premenopausal period; Dietary counseling; Exercise counseling; Essential hypertension; Paroxysmal atrial fibrillation (CMS/HCC) (HCC); Constipation, unspecified constipation type; Iron deficiency anemia due to chronic blood loss; Major depressive disorder, recurrent, moderate (CMS/HCC) (HCC); HAMLET (generalized anxiety disorder) 12/18/2024 Travel 12/17/[address] [facility] [address] [place] [address] Shruti Campos MD chart prep 12/16/[address] [facility] [address] [place] [address] Shruti Campos MD 12/11/[address] [facility] [address] [place], [place] [phone] Shruti Campos MD Pre-visit Planning (SDOH was already completed ) 12/05/2024 Results Follow-Up [facility] [address] [place] [address] Shruti Campos MD ~PT, ~INR - ANTI COAG CLINIC, PROTHROMBIN TIME WHOLE BLD POC 12/05/2024 Orders Only GENERIC EXTERNAL DATA DEPARTMENT Provider, Generic External Data 12/04/[address] [facility] [address] [place] [address] Shruti Campos MD 11/03/2024 Results Follow-Up [facility] [address] [place] [address] Shruti Campos MD ~PT, ~INR - ANTI COAG CLINIC, PROTHROMBIN TIME WHOLE BLD POC 11/03/2024 Orders Only GENERIC EXTERNAL DATA DEPARTMENT Provider, Generic External Data from Last 3 Months Immunizations Immunization Administration [...] Sign Reading Time Taken Comments Blood Pressure 124/80 12/18/2024 1:58 PM EDT Pulse 78 12/18/2024 1:58 PM EDT Temperature 36.1 C (96.9 F) 12/18/2024 1:58 PM EDT Respiratory Rate 20 12/18/2024 1:58 PM EDT Oxygen Saturation 99% 12/18/2024 1:58 PM EDT Inhaled Oxygen Concentration - - Weight 129 kg (284 lb 3.2 oz) 12/18/2024 1:58 PM EDT Height 162.6 cm (5' 4 ) 12/18/2024 1:58 PM EDT Body Mass Index 48.78 12/18/2024 1:58 PM EDT Plan of Treatment Upcoming Encounters Date Type Department Care Team (Late st Contact Info) Description 02/26/2025 10:45 AM EST Office Visit [facility] [address] [place], [place] [phone] Shruti Campos MD [address] [place] [address] Health Maintenance Due Date Last Done Comments CT Colonography 1979 Colonoscopy 1979 Colorectal Cancer Screening 1979 FIT DNA/Cologuard 1979 FIT 1979 FOBT 1979 Lipid Panel 1979 Sigmoidoscopy 1979 Diabetes: Foot Exam 11/07/1989 Family Planning (PISQ) 11/07/1994 HPV Vaccines (1 - 3-dose series) 11/07/1994 Diabetes: Hemoglobin A1C 07/06/2024 025, 06/20/2023 COVID-19 Vaccine ( - 2024-2 6 season) 2024 Influenza Vaccine (#1) 2024 2, [...] Comments PROTHROMBIN TIME WHOLE BLD POC Routine 01/21/2025 2:40 PM EST ~PT, ~INR - ANTI COAG CLINIC Routine 01/21/2025 2:40 PM EST PROTHROMBIN TIME WHOLE BLD POC Routine 12/05/2024 1:43 PM EDT ~PT, ~INR - ANTI COAG CLINIC Routine 12/05/2024 1:43 PM EDT PROTHROMBIN TIME WHOLE BLD POC Routine 11/03/2024 2:20 PM EDT ~PT, ~INR - ANTI COAG CLINIC Routine 11/03/2024 2:20 PM EDT POCT GLYCATED HEMOGLOBIN, TOTAL [...] * (ABNORMAL) PROTHROMBIN TIME WHOLE BLD POC (01/21/2025 2:40 PM EST) Only the most recent of3 resultswithin the time period is included. Protime 23.7(H) 11.1 - 13.5 sec [facility] 01/21/2025 2:40 PM EST 01/21/2025 2:42 PM EST us Generic External Data Provider LAB BLOOD ORDERAB LES Final Result [facility] [address] [place] [phone] * (ABNORMAL) ~PT, ~INR - ANTI COAG CLINIC (01/21/2025 2:40 PM EST) Only the most recent of3 resultswithin the time period is included. Prothrombin Time INR 2.0(H) 0.9 - 1.1 [facility] Comment:METER #: [id number] TERNATIONAL NORMALIZED RATIO (INR) REFERENCE RANGES Reference RangeFor patients not on anticoagulant therapy: 0.9 - 1.1INR ranges for oral anticoagulanttherapy:For prevention and treatment of venous thrombosis and pulmonary embolism: 2.0 - 3.0For acute myocardial infarction with aspirin therapy: 2.0 - 3.0For acute myocardial infarction without aspirin therapy: 3.0 - 4.0For patients with mechanical prosthetic heart valves: 2.5 - 3.5 01/21/2025 2:40 PM EST 01/21/2025 2:42 PM EST Generic External Data Provider LAB BLOOD ORDERAB LES Final Result [facility] [address] [place] [phone] * (ABNORMAL) POCT HGB A1C (04/07/2024 1:38 PM EST) Pathologist [facility] Hemoglobin A1C 7.2(A) 4.0 - 6.0 % QC Media Lot # [id number] Lot# Expiration Date Blood 04/07/2024 1:38 PM EST us [facility] POINT OF CARE TEST ENTER/EDIT OR DERABLES Final Result * [facility] Pap and HPV mRNA E6/E7 (12/04/2023 2:30 PM EDT) Pathologist [facility] HPV nRNA E6/E7 Not Detected Not Detected [facility] Comment:Methodology: Transcr iption-Mediated AmplificationThis assay detects E6/E7 viral messenger RNA (mRNA) from 14high-risk HPV types (16,18,31,33,35,39,45,51,52,56,58,59,66,68).Cervical sources are required for HPV testing.If a vaginal source from a patient who has had atotal hysterectomy with removal of cervix wassubmitted, please contact the testing laboratoryfor alternative testing options.For additional information, please refer totp://[email or web address]/IZP102a9(This link if provided for information/educational purposes only.)THIS TEST WAS PERFORMED AT:[facility] [address] [id number] GONZALEZ MD SOURCE: SEE NOTE [facility] Comment:None given Report Status: [facility] Clinical Information: SEE NOTE [facility] Comment:None given LMP: SEE NOTE [facility] Comment:NONE GIVEN Prev. PAP: SEE NOTE [facility] Comment:NONE GIVEN Prev. BX: SEE NOTE [facility] Comment:NONE GIVEN Statement Of Adequacy: SEE NOTE [facility] Comment:Satisfactory for laureano luation.Endocervical/transformation zone component absent. General Categorization: [facility] Interpretation/Result: SEE NOTE [facility] Comment:Cytology Results: Ne gative for intraepitheliallesion or malignancy. Cytology Comment SEE NOTE [facility] Comment:This Pap test has be en evaluated with computerassisted technology. Armored Truck Driver: SEE NOTE [facility] Comment:DCR, CT(ASCP)CT scre ening location: [place] [address] Review Armored Truck Driver: [facility] Pathologist [facility] PAP Infection SEE NOTE [facility] Comment:Shift in vaginal amrik ra suggestive of bacterialvaginosis. See Note SEE [facility] Comment:EXPLANATORY NOTE:The Pap is a screening test for cervical cancer. It isnot a diagnostic test and is subject to false negativeand false positive results. It is most reliable when asatisfactory sample, regularly obtained, is submittedwith relevant clinical findings and history, and whenthe Pap result is evaluated along with historic andcurrent clinical information. 12/04/2023 2:30 PM EDT 12/04/2023 6:04 PM EDT Narrative [facility] - 12/07/2023 12:53 PM EDT SEE SCANNED RESULTS IN EMR us Pam Guzman CNM LAB PATHOLOGY ORDERABLES Final Result [facility] [address] [place] [address] [phone] * Referral to Ophthalmology (08/13/2023) Shruti Handy MD OUTPATIENT REFERR AL ORDERABLES Final Result * BI Mammogram Screening Tomosynthesis Bilateral (08/10/2023 11:20 AM EDT) Anatomical Region Laterality Modality Breast Bilateral Mammography 08/10/2023 11:2 0 AM EDT Narrative 08/28/2023 1:48 PM EDT [address] [place] [address] Mammography Report Signed Patient: Bria Nevarez MR#: [id number] : 1980 Acct:[id number] Age/Sex: 42 / F ADM Date: 08/10/23 Loc: HO.MAMMO Attending Dr: Shruti Mccain MD Ordering Physician: Shruti Campos MD Re sults: 1Negative Date of Service: 08/10/23 Follow Up: 1 Year From Orig inal Mammogram Procedure(s): MM tomosynthesis screening BI Accession Number(s): [id number] cc: Shruti Campos MD EXAMINATION: MM SCREENING [...] in OV> 08/28/23 1344 DD/ 1120 TD/TT: Alloy Weigher: Procedure Note Donotuseinterpreter, Image - 08/28/2023 [facility] [address] [place] [address] Mammography Report Signed Patient: Bria Nevarez NMR#: [id number] : 1980Acct:[id number] Age/Sex: 42 / FADM Date: 08/10/23 Loc: [facility] Attending Dr: Shruti Mccain MD Ordering Physician: Shruti Campos sults: 1Negative Date of Service: 08/10/23Follow Up: 1 Year From Orig inal Mammogram Procedure(s): MM tomosynthesis screening BI Accession Number(s): [id number] cc: Shruti Campos MD EXAMINATION: MM SCREENING [...] in OV> 08/28/23 1344 DD/ 1120 TD/TT: Alloy Weigher: Shruti Handy MD IMG BI PROCEDURES Final Result * Hepatitis C Antibody with Reflex to HCV, RNA, Quantitative, Real-Time PCR (06/20/2023 1:38 PM EDT) Hepatitis C Antibody Nonreactive Nonreactive [facility] Comment:Antibodies to HCV no t detected; does not exclude early acuteHCV infection. Blood Venous blood specimen / Unknown 06/20/2023 1:38 PM EDT 06/20/2023 1:38 PM EDT Shruti Handy MD LAB BLOOD ORDERAB LES Final Result [facility] [address] [place] [phone] * HIV-1/2 Antigen and Antibodies, Fourth Generation, with Reflexes (06/20/2023 1:38 PM EDT) HIV AB/AG Nonreactive Nonreactive [facility] Comment:HIV-1 p24 Ag and/or HIV-1/HIV-2 Ab not detected.A test result that is nonreactive does not exclude thepossibility of exposure to or infection with HIV-1 and/orHIV-2. Nonreactive results in this assay for individualswith prior exposure to HIV-1 and/or HIV-2 may be due toantigen and antibody levels that are below the limit ofdetection of this assay.The [employer] HIV Ag/Ab Combo assay result andsupplemental assay results should be interpreted inconjunction with the patient's clinical presentation,history and other laboratory results. If the results areinconsistent with clinical evidence, additional testing issuggested to confirm the result. Blood Venous blood specimen / Unknown 06/20/2023 1:38 PM EDT 06/20/2023 1:38 PM EDT Shruti Handy MD LAB BLOOD ORDERAB LES Final Result [facility] [address] [place] [address] [phone] from Last 3 Months or Most Recently Relevant to Health Maintenance Insurance [facility] C3 Care Teams Duty Officer Relationship Specialty Start Date End Date Shruti Campos MD [address] [place] [address] PCP - General Internal Medicine 05/11/23
[2025-02-03 08:18] LABS: Prothrombin Time Whole Bld POC 31.4 sec (11.1-13.5); ~PT, ~INR - Anti Coag Clinic 2.6 (0.9-1.1)
== END 2025-02-02 14:04 | disposition home or self-care (01) ==
LOC: HO.ACS 13:49
PROVIDERS: PCP Student in an Organized Health Care Education/Training Program; Visit Provider Internal Medicine Medical Oncology
DX: Z79.01 Long term (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 (principal)

== ENCOUNTER → 2025-02-02 13:49 | Outpatient (BNVA) | payer MEDICAID, SELFPAY | PROVIDERS: PCP Student in an Organized Health Care Education/Training Program; Visit Provider Internal Medicine Medical Oncology | DX: Z79.01 Long term (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 (principal) | CPT/HCPCS: 85610; 99211 ==

== ENCOUNTER 2025-02-20 14:09 | Outpatient (AMB) | payer MEDICAID, SELFPAY ==
[2025-02-20 14:16] LABS: Prothrombin Time Whole Bld POC 15.9 sec (11.1-13.5); ~PT, ~INR - Anti Coag Clinic 1.3 (0.9-1.1)
--- NOTE | 2025-02-20 14:27 | MHC.OFFVISCO ---
Intake Intake Visit Reasons: Anticoagulation Allergies lisinopril Allergy (Mild, Verified 02/20/25 14:11) Cough duloxetine (From Cymbalta) Adverse Reaction (Verified 02/20/25 14:11) Palpitations Medication List - Last Reconciled 02/20/25 by Candi Stone, RN albuterol sulfate 90 mcg/actuation (Ventolin HFA) 2 puffs inhalation Q6H PRN atorvastatin 10 mg PO DAILY bisacodyl 5 mg PO DAILY PRN blood sugar diagnostic (FreeStyle Lite Strips) As directed bupropion HCl SR (Wellbutrin SR) 150 mg PO DAILY 1 month MDD 150mg cholecalciferol (vitamin D3) 50 mcg PO DAILY clindamycin phosphate 1% topical BID clonidine HCl 0.2 mg PO BID diltiazem HCl CD 120 mg PO DAILY docusate sodium 100 mg PO BID PRN ferrous gluconate 324 mg PO 3XW lancets (FreeStyle Lancets) As directed linaclotide (Linzess) 145 mcg PO QAM loratadine 10 mg PO DAILY lorazepam 0.5 mg PO QAM PRN losartan 25 mg PO DAILY magnesium oxide 200 mg PO BID PRN metoprolol succinate ER 25 mg PO BID omeprazole 20 mg PO DAILY polyethylene glycol 3350 (Gavilax) 17 grams PO DAILY tirzepatide (Mounjaro) 10 mg subcut QWEEK warfarin 2 mg See Protocol PO DIRECTED Nursing Note INR: 1.3 out of therapeutic range of 2-3 Pt denies missed dose. Medications and supplements reviewed Patient status: feels well, states eating more protein and less food since taking Munjaro. Has nausea and vomitting at times, mostly on the days she takes the injection. Does not take warfarin at or near the time of Munjaro. Medications or supplements: no changes Diet: as above Denies any signs and symptoms of bleeding or clotting or unusual bruising Bleeding, bruising, clotting discussed Nutritional guidance given: to avoid greens until INR therapeutic Dose: increase dose X 2 days from 2mg to 3mg then resume usual dose of 2mg daily F/U INR Date: 02/27/25?? Patient verbalizing understanding of instructions given. T/C to pcp Dr Shruti Handy at [facility]. Spoke to Dipika and reported critical result with dosing plan and next retest date. Anti-Coag Initial Assessment Social Hx Patient Tobacco Use Status: Former Tobacco user Smoking packs per day: 0.5 alcohol intake: never Cardiovascular Hx: HTN and Arrhythmias Lung Disease HX: Asthma Endocrine Hx: Diabetes Musculoskeletal Hx: Osteoporosis Blood Disorder Hx: Anemia and Hyperlipidemia Hx: Kidney Disease Neurological Hx: Migraines/Headaches Cancer HX: No Psych. Illness/Depression: Yes Coding Level of Care Code Est Patient Level 1 Diagnoses Current use of anticoagulant therapy Z79.01 Assessment & Plan Assessment & Plan (1) Current use of anticoagulant therapy: Code(s): Z79.01 - director long term care (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 Category: Medical
--- OUTSIDE RECORDS SUMMARY | 2025-02-20 19:29 | XMS_ITS | Encounter Summary ---
Author Organization [employer] Address [address] [place] [address] 7 [place] [address] Care Team Providers Care Academic Computing Director Name Role Phone Shruti Campos MD Primary Care Pro vider Reason for Visit * Reason Comments Pre-visit Planning Pre-visit planning - LVM Encounter Details Date Type Department Care Team ([facility] Contact Info) Description 02/18/2025 Patient Outreach [facility] [address] [place] [address] Shruti Campso MD [address] [place] [address] Pre-visit Planning (Pre-visit planning - LVM ) Social History Tobacco Use Types Packs/Day Years [...] AM EST documented as of this encounter Progress Notes * Darby Hutchison - 02/18/2025 2:28 PM EST GREGORY Merida placed outbound call to patient to complete pre-visit planning. No answer at this time. Patient name and were not confirmed. CC left voicemail requesting return call. Direct contact information provided. documented in this encounter Plan of Treatment Upcoming Encounters Date Type Department Care Team ([facility] st Contact Info) Description 02/26/2025 10:45 AM EST Office Visit [facility] [address] [place] [phone] Shruti Campos MD [address] [place] [address] documented as of this encounter Goals Goal Patient Goal Type Associated Problems Recent Progress Patient-Stated? Author Help patients manage their type 2 diabetes Care Plan Help patients manage their type 2 diabetes No Shruti Campos MD Weekly blood pressure task Care Plan Weekly blood pressure task No Shruti Campos MD Help patients manage their type 2 diabetes Care Plan Help patients manage their type 2 diabetes No Shruti Campos MD Patient has chronic kidney disease Care Plan Patient has chronic kidney disease No Shruti Campos MD Weekly blood pressure task Care Plan Weekly blood pressure task No Darby Hutchison Weekly blood pressure task Care Plan Weekly blood pressure task No Darby Hutchison Patient has chronic kidney disease Care Plan Patient has chronic kidney disease No Darby Hutchison Patient has chronic kidney disease Care Plan Patient has chronic kidney disease No Darby Hutchison documented as of this encounter Visit Diagnoses Not on filedocumented in this encounter Additional Health Concerns Active Problems Noted Date Diagnosed Date Help patients manage their type 2 diabetes 02/03 Weekly blood pressure task 02/03/2025 Help patients manage their type 2 diabetes 02/03 Patient has chronic kidney disease 02/03/2025 Weekly blood pressure task 02/18/2025 Weekly blood pressure task 02/18/2025 Patient has chronic kidney disease 02/18/2025 Patient has chronic kidney disease 02/18/2025 Assessment Noted Time PHQ-9 Depression Total Score: 0 07/22/19 25 1:07 PM EDT documented as of this encounter Care Teams Academic Computing Director Relationship Specialty Start Date End Date Shruti Campos MD [address] [place] [phone] PCP - General Internal Medicine 05/11/23 documented as of this encounter
--- OUTSIDE RECORDS SUMMARY | 2025-02-20 19:29 | XMS_ITS | Encounter Summary ---
Author Organization [employer] Address [address] [facility] 7t [place] [address] Care Team Providers Care Primary Care Sales Representative Name Role Phone Shruti Campos MD Primary Care Pro vider Encounter Details Date Type Department Care Team (Late st Contact Info) Description 02/20/2025 Orders Only GENERIC EXTERNAL DATA DEPARTMENT Provider, [...] the past 12 months, has t he [employer], oil or water [employer] threatened to shut off services in your [...] Description 02/26/2025 10:45 AM EST Office Visit [facility] [address] [place] [address] Shruti Campos MD [address] [place], [place] [phone] documented as of this encounter Goals Goal [...] has chronic kidney disease No Darby Hutchison Weekly blood pressure task Care Plan Weekly blood pressure task No Madelyn Barrera RN Weekly blood pressure task Care Plan Weekly blood pressure task No Madelyn Barrera, MANUEL Patient has chronic kidney disease Care Plan Patient has chronic kidney disease No Madelyn Barrera RN Patient has chronic kidney disease Care Plan Patient has chronic kidney disease No Madelyn Barrera RN Weekly blood pressure task Care Plan Weekly blood pressure task No Shruti Campos MD Weekly blood pressure task Care Plan Weekly blood pressure task No Shruti Campos MD Patient has chronic kidney disease Care Plan Patient has chronic kidney disease No Shruti Campos MD Patient has chronic kidney disease Care Plan Patient has chronic kidney disease No Shruti Campos MD documented as of this encounter Procedures Procedure Name Priority Date/Time Associated Diagnosis Comments PROTHROMBIN TIME WHOLE BLD POC Routine 02/20/2025 2:14 PM EST ~PT, ~INR - ANTI COAG CLINIC Routine 02/20/2025 2:14 PM EST documented in this encounter Results * (ABNORMAL) PROTHROMBIN TIME WHOLE BLD POC (02/20/2025 2:14 PM EST) Protime 15.9(H) 11.1 - 13.5 sec [facility] 02/20/2025 2:14 PM EST 02/20/2025 2:15 PM EST us Generic External Data Provider LAB BLOOD ORDERAB LES Final Result [facility] [address] [place] [address] [phone] * (ABNORMAL) ~PT, ~INR - ANTI COAG CLINIC (02/20/2025 2:14 PM EST) Prothrombin Time INR 1.3(H) 0.9 - 1.1 [facility] Comment:METER #: [id number] TERNATIONAL NORMALIZED RATIO (INR) REFERENCE RANGES Reference RangeFor patients not on anticoagulant therapy: 0.9 - 1.1INR ranges for oral anticoagulanttherapy:For prevention and treatment of venous thrombosis and pulmonary embolism: 2.0 - 3.0For acute myocardial infarction with aspirin therapy: 2.0 - 3.0For acute myocardial infarction without aspirin therapy: 3.0 - 4.0For patients with mechanical prosthetic heart valves: 2.5 - 3.5 02/20/2025 2:14 PM EST 02/20/2025 2:15 PM EST us Generic External Data Provider LAB BLOOD ORDERAB LES Final Result [facility] [address] [place] [address] [phone] documented in this encounter Visit Diagnoses [...] 02/18/2025 Patient has chronic kidney disease 02/18/2025 Weekly blood pressure task 02/20/2025 Weekly blood pressure task 02/20/2025 Patient has chronic kidney disease 02/20/2025 Patient has chronic kidney disease 02/20/2025 Weekly blood pressure task 02/20/2025 Weekly blood pressure task 02/20/2025 Patient has chronic kidney disease 02/20/2025 Patient has chronic kidney disease 02/20/2025 Assessment Noted Time PHQ-9 Depression Total Score: 0 07/22/19 25 1:07 PM EDT documented as of this encounter Care Teams Primary Care Sales Representative Relationship Specialty Start Date End Date Shruti Campos MD [address] [place] [address] PCP - General Internal Medicine 05/11/23 documented as of this encounter
--- OUTSIDE RECORDS SUMMARY | 2025-02-20 19:29 | XMS_ITS | Encounter Summary ---
Author Organization [employer] Address [address] [facility] 7t [place] [address] Care Team Providers Care Delinquent Tax Collector Name Role Phone Shruti Campos MD Primary Care Pro vider Reason for Visit * Reason Comments Med Change Request Encounter Details Date Type Department Care Team ([facility] Contact Info) Description 02/12/2024 Refill [facility] [address] [place], [place] [phone] Shruti Campos MD [address] [place] [address] Social History Tobacco Use Types Packs/Day Years [...] Description 02/26/2025 10:45 AM EST Office Visit [facility] [address] [place] [phone] Shruti Campos MD [address] [place] [phone] documented as of this encounter Visit Diagnoses Not on filedocumented in this encounter Additional Health Concerns Assessment Noted Time PHQ-9 Depression Total Score: 18 024 12:25 PM EST documented as of this encounter Care Teams Delinquent Tax Collector Relationship Specialty Start Date End Date Shruti Campos MD [address] [place] [phone] PCP - General Internal Medicine 05/11/23 documented as of this encounter
--- OUTSIDE RECORDS SUMMARY | 2025-02-20 19:29 | XMS_ITS | Encounter Summary ---
Author Organization [employer] Address [address] [place] [address] 7t [place] [address] Care Team Providers Care Architectural Intern Name Role Phone Shruti Campos MD Primary Care Pro vider Reason for Visit * Reason Onset Date Comments Nurse Triage 04/01/2024 Encounter Details Date Type Department Care Team ([facility] st Contact Info) Description 04/01/2024 Telephone [facility] [address] [place] [address] [phone] Shruti Campos MD [address] [place] [address] Nurse Triage Social History Tobacco Use Types [...] 1.5mg as prescribed at that time (only senior information security engineer found on chart). Pt [...] to touch The caller accepted this outcome. [phone] documented in this encounter Plan of Treatment Upcoming Encounters Date Type Department Care Team (Late st Contact Info) Description 02/26/2025 10:45 AM EST Office Visit [facility] [address] [place] [address] [phone] Shruti Campos MD [address] [place] [phone] documented as of this encounter Visit Diagnoses Not on filedocumented in this encounter Additional Health Concerns Assessment Noted Time PHQ-9 Depression Total Score: 18 024 12:25 PM EST documented as of this encounter Care Teams Architectural Intern Relationship Specialty Start Date End Date Shruti Campos MD [address] [place] [address] [phone] PCP - General Internal Medicine 05/11/23 documented as of this encounter
--- OUTSIDE RECORDS SUMMARY | 2025-02-20 19:29 | XMS_ITS | Encounter Summary ---
Author Organization [employer] Address [address] [place] [address] 7 [place] [address] Care Team Providers Care Pharmacy Picking Tech Name Role Phone Shruti Campos MD Primary Care Pro vider Reason for Visit * Reason Onset Date Comments Med Refill 07/23/2024 Encounter Details Date Type Department Care Team ([facility] st Contact Info) Description 07/23/2024 Refill [facility] [address] [place] [address] Shruti Campos MD [address] [place] [address] Social History Tobacco Use Types Packs/Day Years [...] Description 02/26/2025 10:45 AM EST Office Visit [facility] [address] [place] [phone] Shruti Campos MD [address] [place] [address] documented as of this encounter Visit Diagnoses Not on filedocumented in this encounter Additional Health Concerns Assessment Noted Time PHQ-9 Depression Total Score: 0 07/22/19 25 1:07 PM EDT documented as of this encounter Care Teams Pharmacy Picking Tech Relationship Specialty Start Date End Date Shruti Campos MD [address] [place] [phone] PCP - General Internal Medicine 05/11/23 documented as of this encounter
--- OUTSIDE RECORDS SUMMARY | 2025-02-20 19:29 | XMS_ITS | Encounter Summary ---
Author Organization [employer] Address [address] [place] [address] 7t [place] [address] Care Team Providers Care Ice Skating Instructor Name Role Phone Shruti Campos MD Primary Care Pro vider Reason for Visit * Reason Onset Date Comments Med Refill 02/18/2024 Encounter Details Date Type Department Care Team ([facility] st Contact Info) Description 02/18/2024 Refill [facility] [address] [place] [address] Shruti Campos MD [address] [place] [address] Social History Tobacco Use Types Packs/Day Years [...] 02/26/2025 10:45 AM EST Office Visit [facility] [address] [place] [phone] Shruti Campos MD [address] [place] [address] documented as of this encounter Visit Diagnoses Not on filedocumented in this encounter Additional Health Concerns Assessment Noted Time PHQ-9 Depression Total Score: 18 024 12:25 PM EST documented as of this encounter Care Teams Ice Skating Instructor Relationship Specialty Start Date End Date Shruti Campos MD [address] [place] [phone] PCP - General Internal Medicine 05/11/23 documented as of this encounter
--- OUTSIDE RECORDS SUMMARY | 2025-02-20 19:29 | XMS_ITS | Encounter Summary ---
Author Organization [employer] Address [address] [facility] 7t [place] [address] Care Team Providers Care Kinesiotherapist Name Role Phone Shruti Campos MD Primary Care Pro vider Reason for Visit * Reason Onset Date Comments lab results/ Coumadin clinic 02/20/2025 Encounter Details Date Type Department Care Team ([facility] st Contact Info) Description 02/20/2025 Telephone [facility] [address] [place] [address] Shruti Campos MD [address] [place] [address] lab results/ Coumadin clinic Social History Tobacco Use Types Packs/Day Years [...] encounter Miscellaneous Notes * Telephone Encounter - Madelyn Barrera RN - 02/20/2025 2:54 PM EST TC received from Aranza at [facility] Coumadin clinic. INR today 1.3. Target range 2.0-3.0. Coumadin increased from 2 mg to 3 mg 2 days , pt to return for INR 02/27. documented in this encounter Plan of Treatment Upcoming Encounters Date Type Department Care Team (Late st Contact Info) Description 02/26/2025 10:45 AM EST Office Visit [facility] [address] [place] [phone] Shruti Campos MD [address] [place] [address] documented as of this encounter Goals Goal [...] blood pressure task No Madelyn Barrera RN Patient has chronic [...] Campos MD documented as of this encounter Visit Diagnoses [...] documented as of this encounter Care Teams Kinesiotherapist Relationship Specialty Start Date End Date Shruti Campos MD [address] [place] [phone] PCP - General Internal Medicine 05/11/23 documented as of this encounter
--- OUTSIDE RECORDS SUMMARY | 2025-02-20 19:29 | XMS_ITS | Encounter Summary ---
Author Organization [facility] Address [address] [place] [address] Care Team Providers Care Soil Surveyor Name Role Phone Paul Mix MD Primary Care Provider [phone] Lisette Murillo Primary Care Provider [phone] Encounter Details Date Type Department Care Team ([facility] st Contact Info) Description 04/30/2013 Orders Only [facility] Orthopedic Surgery [address] [phone] Mandeep Kirk MD [address] [place] [address] Social History Tobacco Use Types Packs/Day Years [...] leg documented in this encounter Care Teams Soil Surveyor Relationship Specialty Start Date End Date Paul Mix MD [facility] [address] [place] [address] PCP - General 05/25/09 11/19/14 Lisette Murillo [address] [address] PCP - General Internal Medicine 11/20/14 documented as of this encounter
--- OUTSIDE RECORDS SUMMARY | 2025-02-20 19:29 | XMS_ITS | Encounter Summary ---
Author Organization [employer] Address [address] [place] [address] 7t [place] [address] Care Team Providers Care Band Edger Name Role Phone Shruti Campos MD Primary Care Pro vider Reason for Visit * Reason Onset Date Comments Med Refill 06/23/2024 Encounter Details Date Type Department Care Team ([facility] st Contact Info) Description 06/23/2024 Refill [facility] [address] [place] [address] Shruti Campos MD [address] [place] [address] Social History Tobacco Use Types Packs/Day Years [...] Description 02/26/2025 10:45 AM EST Office Visit [facility] [address] [place] [phone] Shruti Campos MD [address] [place] [address] documented as of this encounter Visit Diagnoses Not on filedocumented in this encounter Additional Health Concerns Assessment Noted Time PHQ-9 Depression Total Score: 18 024 12:25 PM EST documented as of this encounter Care Teams Band Edger Relationship Specialty Start Date End Date Shruti Campos MD [address] [place] [phone] PCP - General Internal Medicine 05/11/23 documented as of this encounter
--- OUTSIDE RECORDS SUMMARY | 2025-02-20 19:29 | XMS_ITS | Clinical Summary ---
Author Organization [employer] Address [address] [place] [address] 7t [place] [address] Care Team Providers Care Senior Business Manager Name Role Phone Shruti Campos MD [...] 5 Active Blood Glucose Monitoring Suppl (FreeStyle [place]) w/Device kitIndications :Type 2 diabetes mellitus with microalbuminur ia, without long-term current use of insulin ([facility]) Check glucose daily 1 kit 5 Active Ventolin HFA 108 (90 Base) MCG/ACT inhaler INHALE 2 PUFFS EVERY 6 HOURS IF NEEDED FOR WHEEZING. 18 g 2 5 Active bisacodyl (Bisacodyl EC) 5 MG [...] MG/0.5ML solution auto-injectorI ndications:Mor bid obesity (CMS/HCC) ([facility]),Type 2 diabetes mellitus with microalbuminur ia, without long-term current use of insulin ([facility]) INJECT 10 MG UNDER THE SKIN 1 (ONE) TIME PER WEEK. 0.5 mL 5 025 Active cloNIDine (Catapres) 0.2 MG tablet TAKE 1 TABLET BY MOUTH TWICE A DAY 180 tablet 1 5 Active cloNIDine (Catapres) 0.2 MG tablet TAKE 1 TABLET BY MOUTH TWICE A DAY 180 tablet 1 5 025 Discontinued Tirzepatide (Mounjaro) 10 MG/0.5ML solution auto-injectorI ndications:Mor bid obesity (CMS/HCC) ([facility]),Type 2 diabetes mellitus with microalbuminur ia, without long-term current use of insulin ([facility]) Inject 10 mg under the skin 1 (one) time per week. 2 mL 5 025 Discontinued Active Problems Problem Noted Date Diagnosed Date Skin lesion 11/22/2023 Constipation 11/22/2023 Urinary incontinence 11/22/2023 Anemia 07/05/2023 History of shingles 07/05/2023 Health care maintenance 05/13/2023 Bilateral carpal tunnel syndrome 05/11/2023 Cervical radiculopathy 01/20/2022 Lumbosacral radiculopathy 01/20/2022 S/P laparoscopic sleeve gastrectomy 01/20/2022 Morbid obesity (CMS/HCC) 09/22/2019 HAMLET (generalized anxiety disorder) 04/10/2019 Major depressive disorder, recurrent, moderate ( CMS/HCC) 04/10/2019 Assessment & Plan (05/15/2023 8:31 AM EST): PLAN: (check all that apply) Further services needed, but declined Behavioral Health Integration Plan External OP therapy referral Patient Self Plan Patient to utilize skills provided in intervention , [facility] as needed, and Patient to reach out to [facility] as needed Mild intermittent asthma 04/10/2019 Glaucoma of left eye 02/15/2019 Chronic pain syndrome 01/20/2019 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 Follow up with SENIOR GENETIC COUNSELOR in 2-3 weeks to discuss management of [...] Encounters Date Type Department Care Team Description 02/20/2025 Results Follow-Up [facility] MEDICINE [address] [place] [address] Shruti Campos MD ~PT, ~INR - ANTI COAG CLINIC, PROTHROMBIN TIME WHOLE BLD POC 02/20/2025 Telephone [facility] MED & PEDS [address] [place], [place] [phone] Shruti Campos MD lab results/ Coumadin clinic 02/20/2025 Orders Only GENERIC EXTERNAL DATA DEPARTMENT Provider, Generic External Data 02/18/2025 Patient Outreach [facility] MED[facility]INE [address] [place] [address] Shruti Campos MD Pre-visit Planning (Pre-visit planning - LVM ) 02/05/2025 Refill [facility] MED[facility]INE [address] [place] [address] Rosana Jaramillo MD 02/03/2025 Results Follow-Up [facility] MEDICINE [address], [place] [phone] Shruti Campos MD ~PT, ~INR - ANTI COAG CLINIC, PROTHROMBIN TIME WHOLE BLD POC 02/02/2025 Orders Only GENERIC EXTERNAL DATA DEPARTMENT Provider, Generic External Data 01/29/2025 Refill [facility] MEDICINE [address] [place] [address] Shruti Campos MD Morbid obesity (CMS/HCC) (HCC); Type 2 diabetes mellitus with microalbuminuria, without long-term current use of insulin (HCC) 01/21/2025 Orders Only GENERIC EXTERNAL DATA DEPARTMENT Provider, Generic External Data 01/15/[address] [address] Shruti Campos MD 01/09/[address] [address] Shruti Campos MD Lab Orders 12/19/[address] [address] Shruti Campos MD 12/18/2024 1:30 PM EDT Office Visit [address] [address] Shruti Campos MD Screening mammogram for breast [...] (generalized anxiety disorder) 12/18/2024 Travel 12/17/[address] [address] Shruti Campos MD chart prep 12/16/[address] [address] Shruti Campos MD 12/11/2024 Patient Outreach [facility] MED & PEDS [address] [place], [place] [phone] Shruti Campos MD Pre-visit Planning (SDOH was already completed ) 12/05/2024 Results Follow-Up [address] [address] Shruti Campos MD ~PT, ~INR - ANTI COAG CLINIC, PROTHROMBIN TIME WHOLE BLD POC 12/05/2024 Orders Only GENERIC EXTERNAL DATA DEPARTMENT Provider, Generic External Data 12/04/2024 Refill [facility] MEDICINE [address] [place] [address] Shruti Campos MD from Last 3 Months [...] Description 02/26/2025 10:45 AM EST Office Visit [facility] MEDICINE [address] [place] [address] Shruti Campos MD [address] [place] [address] Health Maintenance Due Date Last Done Comments CT Colonography 1979 Colonoscopy 1979 Colorectal Cancer Screening 1979 FIT DNA/Cologuard 1979 FIT 1979 FOBT 1979 Lipid Panel 1979 Sigmoidoscopy 1979 Diabetes: Foot Exam 11/07/1989 Family Planning (PISQ) 11/07/1994 HPV Vaccines (1 - 3-dose series) 11/07/1994 Diabetes: Hemoglobin A1C 07/06/2024 025, 06/20/2023 COVID-19 Vaccine (1 - 2024-2 6 season) 2024 Influenza Vaccine [...] on patient's age to complete this topic Goals Goal Patient Goal Type Associated Problems [...] Care Plan Weekly blood pressure task No Srhuti Campos MD Patient has chronic kidney disease Care Plan Patient has chronic kidney disease No Shruti Campos MD Patient has chronic kidney disease Care Plan Patient has chronic kidney disease No Shruti Campos MD Procedures Procedure Name Priority Date/Time Associated Diagnosis Comments PROTHROMBIN TIME WHOLE BLD POC Routine 02/20/2025 2:14 PM EST ~PT, ~INR - ANTI COAG CLINIC Routine 02/20/2025 2:14 PM EST PROTHROMBIN TIME WHOLE BLD POC Routine 02/02/2025 1:55 PM EST ~PT, ~INR - ANTI COAG CLINIC Routine 02/02/2025 1:55 PM EST PROTHROMBIN TIME WHOLE BLD POC Routine 01/21/2025 2:40 PM EST ~PT, ~INR - ANTI COAG CLINIC Routine 01/21/2025 2:40 PM EST PROTHROMBIN TIME WHOLE BLD POC Routine 12/05/2024 1:43 PM EDT ~PT, ~INR - ANTI COAG CLINIC Routine 12/05/2024 1:43 PM EDT POCT GLYCATED HEMOGLOBIN, TOTAL Routine [...] WHOLE BLD POC (02/20/2025 2:14 PM EST) Only the most recent of4 resultswithin the time period is included. Protime 15.9(H) 11.1 - 13.5 sec [facility] 02/20/2025 2:14 PM EST 02/20/2025 2:15 PM EST us Generic External Data Provider LAB BLOOD ORDERAB LES Final Result Performing Organization Address [facility] Co de Phone Number [facility] [address] [place] [phone] * (ABNORMAL) ~PT, ~INR - ANTI COAG CLINIC (02/20/2025 2:14 PM EST) Only the most recent of4 resultswithin the time period is included. Prothrombin Time INR 1.3(H) 0.9 - 1.1 [facility] Comment:METER #: [id number] TERNATIONAL NORMALIZED RATIO (INR) REFERENCE RANGES Reference [...] 2:14 PM EST 02/20/2025 2:15 PM EST [employer] External Data Provider LAB BLOOD ORDERAB LES Final Result Performing Organization Address [facility] Co de Phone Number [facility] [address] [place] [phone] * (ABNORMAL) POCT HGB A1C (04/07/2024 1:38 PM EST) Hemoglobin A1C 7.2(A) 4.0 - 6.0 % QC Media Lot # [id number] Lot# Expiration Date Blood 04/07/2024 1:38 PM EST us Althea Chilel ANP POINT OF CARE TEST ENTER/EDIT OR DERABLES Final Result * ThinPrep Imaging Pap and HPV mRNA E6/E7 (12/04/2023 2:30 PM EDT) HPV nRNA E6/E7 Not Detected Not Detected [facility] Comment:Methodology: Transcr iption-Mediated AmplificationThis assay detects E6/E7 viral messenger RNA (mRNA) from 14high-risk HPV types (16,18,31,33,35,39,45,51,52,56,58,59,66,68).Cervical sources are required for HPV testing.If a vaginal source from a patient who has had atotal hysterectomy with removal of cervix wassubmitted, please contact the testing laboratoryfor alternative testing options.For additional information, please refer tohttp://education.Krauttools/faq/HDF424q6(This link if provided for information/educational purposes only.)THIS TEST WAS PERFORMED AT:[facility] [address] [id number] GONZALEZ MD SOURCE: SEE NOTE [facility] Comment:None given Report Status: [facility] Clinical Information: SEE NOTE [facility] Comment:None given LMP: SEE NOTE [facility] Comment:NONE GIVEN Prev. PAP: SEE NOTE [facility] Comment:NONE GIVEN Prev. BX: SEE NOTE [facility] Comment:NONE GIVEN Statement Of Adequacy: SEE NOTE [facility] Comment:Satisfactory for laureano luation.Endocervical/transformation zone component absent. General Categorization: [facility] Interpretation/Result: SEE NOTE [facility] Comment:Cytology Results: Ne gative for intraepitheliallesion or malignancy. Cytology Comment SEE NOTE [facility] Comment:This Pap test has be en evaluated with computerassisted technology. Gate Attendant: SEE NOTE [facility] Comment:DCR, CT(ASCP)CT scre ening location: [place] [address] Review Gate Attendant: [facility] Pathologist [facility] PAP Infection SEE NOTE [facility] Comment:Shift in vaginal amrik ra suggestive of bacterialvaginosis. See Note SEE [facility] Comment:EXPLANATORY NOTE:The Pap is a screening test for cervical cancer. It isnot a diagnostic test and is subject to false negativeand false positive results. It is most reliable when asatisfactory sample, regularly obtained, is submittedwith relevant clinical findings and history, and whenthe Pap result is evaluated along with historic andcurrent clinical information. 12/04/2023 2:30 PM EDT 12/04/2023 6:04 PM EDT Narrative [facility] - 12/07/2023 12:53 PM EDT SEE SCANNED RESULTS IN EMR us Pam MCCORMACK LAB PATHOLOGY ORDERABLES Final Result [facility] [address] [place] [address] [phone] * Referral to Ophthalmology (08/13/2023) Shruti Handy MD OUTPATIENT REFERR AL ORDERABLES Final Result * BI Mammogram Screening Tomosynthesis Bilateral (08/10/2023 11:20 AM EDT) Anatomical Region Laterality Modality Breast Bilateral Mammography 08/10/2023 11:2 0 AM EDT Narrative 08/28/2023 1:48 PM EDT [facility] [address] [place] [address] Mammography Report Signed Patient: Bria Nevarez MR#: [id number] : 1980 Acct:[id number] Age/Sex: 42 / F ADM Date: 08/10/23 Loc: HO.MAMMO Attending Dr: Shruti Mccain MD Ordering Physician: Shruti Campos MD Re sults: 1Negative Date of Service: 08/10/23 Follow Up: 1 Year From Orig inal Mammogram Procedure(s): MM tomosynthesis screening BI Accession Number(s): [id number] cc: Shruti Campos MD EXAMINATION: MM SCREENING [...] in OV> 08/28/23 1344 DD/ 1120 TD/TT: Ball Mill Mixer: Procedure Note Donotuseinterpreter, Image - 08/28/[address] [facility] [address] [place] [address] Mammography Report Signed Patient: Bria Nevarez [facility]#: [id number] : 1980Acct:[id number] Age/Sex: 42 / FADM Date: 08/10/23 Loc: YARIT[facility] Attending Dr: Shruti Mccain MD Ordering Physician: Shruti Campos sults: 1Negative Date of Service: 08/10/23Follow Up: 1 Year From Orig ina Mammogram Procedure(s): MM tomosynthesis screening BI Accession Number(s): [id number] cc: Shruti Campos MD EXAMINATION: MM SCREENING [...] in OV> 08/28/23 1344 DD/ 1120 TD/TT: Ball Mill Mixer: Shruti Handy MD IMG BI PROCEDURES Final Result * Hepatitis C Antibody with Reflex to HCV, RNA, Quantitative, Real-Time PCR (06/20/2023 1:38 PM EDT) Hepatitis C Antibody Nonreactive Nonreactive [facility] Comment:Antibodies to HCV no t detected; does not exclude early acuteHCV infection. Blood Venous blood specimen / Unknown 06/20/2023 1:38 PM EDT 06/20/2023 1:38 PM EDT Shruti Handy MD LAB BLOOD ORDERAB LES Final Result [facility] [address] [place] [phone] * HIV-1/2 Antigen and Antibodies, Fourth Generation, with Reflexes (06/20/2023 1:38 PM EDT) HIV AB/AG Nonreactive Nonreactive [facility] Comment:HIV-1 p24 Ag and/or HIV-1/HIV-2 Ab not detected.A test result that is nonreactive does not exclude thepossibility of exposure to or infection with HIV-1 and/orHIV-2. Nonreactive results in this assay for individualswith prior exposure to HIV-1 and/or HIV-2 may be due toantigen and antibody levels that are below the limit ofdetection of this assay.The [employer] HIV Ag/Ab Combo assay result andsupplemental assay results should be interpreted inconjunction with the patient's clinical presentation,history and other laboratory results. If the results areinconsistent with clinical evidence, additional testing issuggested to confirm the result. Blood Venous blood specimen / Unknown 06/20/2023 1:38 PM EDT 06/20/2023 1:38 PM EDT us Shruti Handy MD LAB BLOOD ORDERAB LES Final Result [facility] [address] [place] [phone] [phone] from Last 3 Months or Most Recently Relevant to Health Maintenance Additional Health Concerns Active Problems Noted Date [...] 02/20/2025 Patient has chronic kidney disease 02/20/2025 [facility] Care Teams Senior Business Manager Relationship Specialty Start Date End Date Shruti Campos MD [address] [place] [phone] PCP - General Internal Medicine 05/11/23
--- OUTSIDE RECORDS SUMMARY | 2025-02-20 19:29 | XMS_ITS | Encounter Summary ---
Author Organization [employer] Address [address] [place] [address] 7t [place] [address] Care Team Providers Care Hearing Screener Name Role Phone Shruti Campos MD Primary Care Pro vider Encounter Details Date Type Department Care Team ([facility] st Contact Info) Description 02/03/2025 Results Follow-Up [facility] MEDICINE [address] [place] [phone] Shruti Campos MD [address] [place] [address] ~PT, ~INR - ANTI COAG CLINIC, PROTHROMBIN [...] Encounter Note - Shruti Handy MD - 02/03/2025 1:33 PM EST On AC-Goal 2-3 -Pt follows at coumadin clinic at [facility] documented in this encounter Plan of Treatment Upcoming Encounters Date Type Department Care Team (Late st Contact Info) Description 02/26/2025 10:45 AM EST Office Visit [facility] MEDICINE [address] [place] [phone] Shruti Campos MD [address] [place] [address] documented as of this encounter Goals Goal Patient Goal Type Associated Problems Recent Progress Patient-Stated? Author Help patients manage their type 2 diabetes Care Plan Help patients manage their type 2 diabetes Shruti Kaur MD Weekly blood pressure task Care Plan Weekly blood pressure task No Shruti Campos MD Help patients manage their type 2 diabetes Care Plan Help patients manage their type 2 diabetes Shruti Kaur MD Patient has chronic kidney disease Care [...] 02/03 Patient has chronic kidney disease 02/03/2025 Assessment Noted Time PHQ-9 Depression Total Score: 0 07/22/19 1:07 PM EDT documented as of this encounter Care Teams Hearing Screener Relationship Specialty Start Date End Date Shruti Campos MD [address] [place] [phone] PCP - General Internal Medicine 05/11/23 documented as of this encounter
--- OUTSIDE RECORDS SUMMARY | 2025-02-20 19:29 | XMS_ITS | Encounter Summary ---
Author Organization [employer] Address [address] [place] [address] [address] [place] [address] Care Team Providers Care Salvage Inspector [employer] Name Role Phone Shruti Campos MD Primary Care Pro vider Encounter Details Date Type Department Care Team ([facility] st Contact Info) Description 02/20/2025 Results Follow-Up [facility] [address] [place] [phone] Shruti Campos MD [address] [place] [address] ~PT, ~INR - ANTI COAG CLINIC, PROTHROMBIN [...] Encounter Note - Shruti Handy MD - 02/20/2025 3:55 PM EST On AC-Goal 2-3 -Pt follows at coumadin clinic at [facility] documented in this encounter Plan of Treatment Upcoming Encounters Date Type Department Care Team (Late st Contact Info) Description 02/26/2025 10:45 AM EST Office Visit [facility] [address] [place] [phone] Shruti Campos MD [address] [place] [address] documented as of this encounter Goals Goal [...] documented as of this encounter Care Teams Salvage Inspector [employer] Relationship Specialty Start Date End Date Shruti Campos MD [address] [place] [phone] PCP - General Internal Medicine 05/11/23 documented as of this encounter
--- OUTSIDE RECORDS SUMMARY | 2025-02-20 19:29 | XMS_ITS | Encounter Summary ---
Author Organization [employer] Address [address] [place] [address] 7t [place] [address] Care Team Providers Care Medicaid Collection Specialist Name Role Phone Shruti Campos MD Primary Care Pro vider Reason for Visit * Reason Onset Date Comments Durable Medical Equipment 10/09/2023 Encounter Details Date Type Department Care Team ([facility] st Contact Info) Description 10/09/2023 Telephone [facility] MEDICINE [address] [place], [place] [phone] Shruti Campos MD [address] [place] [address] Durable Medical Equipment Social History Tobacco Use [...] encounter Miscellaneous Notes * Telephone Encounter - aJson Katz - 10/09/2023 2:23 PM EDT Tc from patient requesting a script for CPAP Supplies that was issued by previous provider documented in this encounter Plan of Treatment Upcoming Encounters Date Type Department Care Team (Late st Contact Info) Description 02/26/2025 10:45 AM EST Office Visit [facility] MEDIC[facility] [address] [place] [phone] Shruti Campos MD [address] [place] [phone] documented as of this encounter Visit Diagnoses Not on filedocumented in this encounter Additional Health Concerns Assessment Noted Time PHQ-9 Depression Total Score: 18 024 12:25 PM EST documented as of this encounter Care Teams Medicaid Collection Specialist Relationship Specialty Start Date End Date Shruti Campos MD [address] [place] [phone] PCP - General Internal Medicine 05/11/23 documented as of this encounter
--- OUTSIDE RECORDS SUMMARY | 2025-02-20 19:29 | XMS_ITS | Encounter Summary ---
Author Organization [facility] Address [address] [place] [address] Care Team Providers Care Runner Man Name Role Phone Paul Mix MD Primary Care Provider [phone] Lisette Murillo Primary Care Provider [phone] Encounter Details Date Type Department Care Team ([facility] st Contact Info) Description 08/24/2014 Orders Only [place] [facility] [address] [place] [phone] Estephania Skelton, KSENIA [address] [place] [address] Social History Tobacco Use Types Packs/Day Years [...] of this encounter Procedures * Due to [place] Hochy eto law, this organization might not be sharing [...] in this encounter Results * Due to [place] Hochy et[place] law, this organization might not be sharing negative HIV tests. * (ABNORMAL) SUREPATH FPGS,HPV,CT/GC PANEL (08/24/2014 4:01 PM EDT) Clinical information NONE GIVEN [facility] Comment:{CLINICAL INFORMATIO N: {[id number]) Date last menstrual period [id number] [facility] Comment:{LMP: {[id number]) Date of previous PAP smear NONE GIVEN [facility] Comment:{PREV. PAP: {[id number]) Date of previous biopsy NONE GIVEN [facility] Comment:{PREV. BX: {[id number]) Specimen source (Cvx/Vag) Cervix, Endocervix [facility] Comment:{SOURCE: {[id number]) Statement of Adequacy (Cvx/Vag) Satisfactory for evaluation. Endocervical/hearn sformation zone component absent. [facility] Comment:{STATEMENT OF ADEQUA CY: {[id number]) General categories (Cvx/Vag) EPITHELIAL CELL ABNORMALITY(A) [facility] Comment:{GENERAL CATEGORIZAT ION: {[id number]) Cytology, Pap Smear Low Grade Squamous Intraepithelial Lesion (LSIL)(A) [facility] Comment:{INTERPRETATION/RESU LT: {[id number]) Cytology study comment (Cvx/Vag) This Pap test has been evaluated with computer assisted technology. [facility] Comment:{COMMENT: {[id number]) Operating Room Specialist (Cvx/Vag) MPG, CT(ASCP) [facility] Comment:{METAL LEAF LAYER: { [id number]) Pathologist (Cvx/Vag) Lorena Mcgrath M.D., Board Certified in Anatomic and Clinical Pathology (electronic signature) Consulting Pathologist [facility] [address] [place] [address] [facility] Comment:{PATHOLOGIST: {[id number]) HPV MRNA E6/E7 Detected(A) Not Detected [facility] Comment: {HPV mRNA E6/E7, SUREPATH VIAL {[id number]) This test was performed using the APTIMA HPV Assay ([employer] This assay detects E6/E7 viral messenger RNA (mRNA) from 14 high-risk HPV types (16,18,31,33,35,39,45,51,52,56,58,59,66,68). The analytical performance characteristics of this assay, when used to test SurePath specimens, have been determined by [employer] [facility] [employer]. Chlamydia trachomatis rRNA NOT DETECTED NOT DETECTED [facility] Comment:{CHLAMYDIA TRACHOMAT IS RNA, TMA {[id number]) Neisseria Gonorrhoeae rRNA NOT DETECTED NOT DETECTED [facility] Comment:{NEISSERIA GONORRHOE AE RNA, TMA {[id number]) COMMENT SEE NOTE [facility] Comment: {COMMENT {[id number]) This test was performed using the APTIMA COMBO2 Assay ([employer] The analytical performance characteristics of this assay, when used to test SurePath specimens have been determined by [employer] [facility]. 08/24/2014 4:01 PM EDT 08/25/2014 1:12 AM EDT Narrative Resulting Agency Comment [id number] Estephania Skelton [facility] Aissatou l Result Performing Organization Address [facility] Co de Phone Number [facility] [address] [place] [address] * RPR, (RAPID PLASMIN REAGIN) WITH REFLEX TO FTA, DIAGNOSTIC (08/24/2014 1:40 PM EDT) Reagin Ab NON-REACT LEIGH ANN NON-REACT LEIGH ANN [facility] Comment:{RPR (DX) W/REFL TIT ER AND CONFIRMATORY TESTING {[id number]) 08/24/2014 1:40 PM EDT 08/25/2014 12:58 AM EDT Narrative Resulting Agency Comment [id number] Estephania Nafisa [facility] Final Res ult Performing Organization Address [facility] Co de Phone Number [facility] [address] [place] [phone] * HEPATITIS C ANTIBODY, SERUM (08/24/2014 1:40 PM EDT) Hepatitis C virus Ab NON-REACTI VE NON-REACT LEIGH ANN [facility] Comment:{HEPATITIS C ANTIBOD Y {[id number]) Hepatitis C virus Ab Signal/Cutoff 0.07 <1.00 [facility] Comment:{SIGNAL TO CUT-OFF { [id number]) 08/24/2014 1:40 PM EDT 08/25/2014 12:58 AM EDT Narrative Resulting Agency Comment [id number] [facility] Final Res ult Performing Organization Address [facility] Co de Phone Number [facility] [address] [place] [address] documented in this encounter Visit Diagnoses Diagnosis Encounter for routine gynecological examination Routine gynecological examination documented in this encounter Care Teams Runner Man Relationship Specialty Start Date End Date Paul Mix MD [facility] [address] [place] [address] PCP - General 05/25/09 11/19/14 Lisette Murillo [facility] [address] [place] [address] PCP - General Internal Medicine 11/20/14 documented as of this encounter
--- OUTSIDE RECORDS SUMMARY | 2025-02-20 19:29 | XMS_ITS | Encounter Summary ---
Author Organization [employer] Address [address] [place] [address] 7t [place] [address] Care Team Providers Care Program Planner Name Role Phone Shruti Campos MD Primary Care Pro vider Reason for Visit * Reason Onset Date Comments Med Refill 06/23/2024 Encounter Details Date Type Department Care Team ([facility] st Contact Info) Description 06/23/2024 Refill [facility] [address] [place], [place] [phone] Ryanne Vega MD [address] [place] [address] Social History Tobacco Use Types Packs/Day Years [...] Upcoming Encounters Date Type Department Care Team ([facility] st Contact Info) Description 02/26/2025 10:45 AM EST Office Visit [facility] [address] [place] [address] Shruti Campos MD [address] [place] [address] documented as of this encounter Visit Diagnoses Not on filedocumented in this encounter Additional Health Concerns Assessment Noted Time PHQ-9 Depression Total Score: 18 024 12:25 PM EST documented as of this encounter Care Teams Program Planner Relationship Specialty Start Date End Date Shruti Campos MD [address] [place] [address] [phone] PCP - General Internal Medicine 05/11/23 documented as of this encounter
--- OUTSIDE RECORDS SUMMARY | 2025-02-20 19:29 | XMS_ITS | Clinical Summary ---
Author Organization [facility] Address [address] [place] [address] Care Team Providers Care Rn Oncology Clinical Name Role Phone Lisette Murillo Shelia Primary Care Provider [phone] Allergies No known active allergies Medications Oxycodone-Acetamin [...] MG Tab 1 TABLET twice daily Active Yxbsupscsx-PTGC-Rs ffeine (FIORICET) 50-300-40 MG Cap 1 OR [...] this topic Procedures * Due to [place] Widgetbox law, this organization might not be sharing [...] Health Maintenance Results * Due to [place] Widgetbox law, this organization might not be sharing negative HIV tests. * (ABNORMAL) [facility] FPGS,HPV,CT/GC PANEL (08/24/2014 4:01 PM EDT) Clinical information NONE GIVEN [facility] Comment:{CLINICAL INFORMATIO N: {[id number]) Date last menstrual period [id number] [facility] Comment:{LMP: {[id number]) Date of previous PAP smear NONE GIVEN [facility] Comment:{PREV. PAP: {[id number]) Date of previous biopsy NONE GIVEN [facility] Comment:{PREV. BX: {[id number]) Specimen source (Cvx/Vag) Cervix, Endocervix [facility] Comment:{SOURCE: {[id number]) Statement of Adequacy (Cvx/Vag) Satisfactory for evaluation. Endocervical/hearn sformation zone component absent. [facility] Comment:{STATEMENT OF ADEQUA CY: {[id number]) General categories (Cvx/Vag) EPITHELIAL CELL ABNORMALITY(A) [facility] Comment:{GENERAL CATEGORIZAT ION: {[id number]) Cytology, Pap Smear Low Grade Squamous Intraepithelial Lesion (LSIL)(A) [facility] Comment:{INTERPRETATION/RESU LT: {[id number]) Cytology study comment (Cvx/Vag) This Pap test has been evaluated with computer assisted technology. [facility] Comment:{COMMENT: {[id number]) Second Vp Hr Assessment (Cvx/Vag) MPG, CT(ASCP) [facility] Comment:{BIOLOGY MANAGER: { [id number]) Pathologist (Cvx/Vag) Lorena Mcgrath M.D., Board Certified in Anatomic and Clinical Pathology (electronic signature) Consulting Pathologist [facility] Pathology [address] [place] [address] [facility] Comment:{PATHOLOGIST: {[id number]) HPV MRNA E6/E7 Detected(A) Not Detected [facility] Comment: {HPV mRNA E6/E7, SUREPATH VIAL {[id number]) This test was performed using the APTIMA HPV Assay ([employer] This assay detects E6/E7 viral messenger RNA (mRNA) from 14 high-risk HPV types (16,18,31,33,35,39,45,51,52,56,58,59,66,68). The analytical performance characteristics of this assay, when used to test SurePath specimens, have been determined by [employer] Chlamydia trachomatis rRNA NOT DETECTED NOT DETECTED [facility] Comment:{CHLAMYDIA TRACHOMAT IS RNA, TMA {[id number]) Neisseria Gonorrhoeae rRNA NOT DETECTED NOT DETECTED [facility] Comment:{NEISSERIA GONORRHOE AE RNA, TMA {[id number]) COMMENT SEE NOTE [facility] Comment: {COMMENT {[id number]) This test was performed using the APTIMA COMBO2 Assay ([employer] The analytical performance characteristics of this assay, when used to test SurePath specimens have been determined by [facility] [facility]. 08/24/2014 4:01 PM EDT 08/25/2014 1:12 AM EDT Narrative Resulting Agency Comment [id number] Estephania Skelton [facility] Aissatou l Result Performing Organization Address [facility] Co de Phone Number [facility] [address] [place] [address] * HEPATITIS C ANTIBODY, SERUM (08/24/2014 1:40 PM EDT) Hepatitis C virus Ab NON-REACTI VE NON-REACT LEIGH ANN [facility] Comment:{HEPATITIS C ANTIBOD Y {[id number]) Hepatitis C virus Ab Signal/Cutoff 0.07 <1.00 [facility] Comment:{SIGNAL TO CUT-OFF { [id number]) 08/24/2014 1:40 PM EDT 08/25/2014 12:58 AM EDT Narrative Resulting Agency Comment [id number] Estephania Skelton [facility] Final Res ult Performing Organization Address [facility] de Phone Number [facility] [address] [place] [address] from Last 3 Months or Most Recently Relevant to Health Maintenance Insurance MEDICAID * Guarantor: [id number] [employer] Account Type Relation to Patient Date of Phone Billing Address Worker's Comp [address] [place] [address] WORKERS COMPENSATION Care Teams Rn Oncology Clinical Relationship Specialty Start Date End Date Lisette Murillo [address] [place] [address] PCP - General Internal Medicine 11/20/14
--- OUTSIDE RECORDS SUMMARY | 2025-02-20 19:29 | XMS_ITS | Encounter Summary ---
Author Organization [employer] Address [address] [facility] 7t [place] [address] Care Team Providers Care Photo Lab Manager Name Role Phone Shruti Campos MD Primary Care Pro vider Reason for Visit * Reason Comments Med Refill Encounter Details Date Type Department Care Team ([facility] Contact Info) Description 12/16/2023 Refill [facility] [address] [place], [place] [phone] Shruti Campos MD [address] [place] [address] Social History Tobacco Use Types Packs/Day Years [...] Description 02/26/2025 10:45 AM EST Office Visit [facility] [address] [place] [address] Shruti Campos MD [address] [place] [address] documented as of this encounter Visit Diagnoses Not on filedocumented in this encounter Additional Health Concerns Assessment Noted Time PHQ-9 Depression Total Score: 18 024 12:25 PM EST documented as of this encounter Care Teams Photo Lab Manager Relationship Specialty Start Date End Date Shruti Campos MD [address] [place] [address] PCP - General Internal Medicine 05/11/23 documented as of this encounter
--- OUTSIDE RECORDS SUMMARY | 2025-02-20 19:29 | XMS_ITS | Clinical Summary ---
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 Follow up with DIE ATTACHING MACHINE TENDER in 2-3 weeks to discuss management [...] scheduled for 05/01 at 11:15 AM at [facility] Essential hypertension 04/23/2017 Assessment & Plan (07/15/2017 [...] asymptomatic. Recommend follow up with Dr. Liriano -DIE ATTACHING MACHINE TENDER in 2-3 weeks after discharge. Patient [...] Varicella Vaccines Discontinued Procedures * Due to [place] Ischemix law, this organization might not be sharing negative HIV tests. Procedure Name Priority Date/Time Associated Diagnosis Comments POCT HEMOGLOBIN A1C, CMG, NON-INTERFACED Routine 06/05/2022 11:58 AM EDT Type 2 diabetes mellitus with other specified complication, unspecified whether ocean transportation intermediary insulin use BASIC METABOLIC PANEL STAT 06/02/2022 12:15 PM EDT [facility]PV, MRNA E6/E7, REFLEX 16/18/45 Routine 08/08/2017 11:00 AM EDT Screening for malignant neoplasm of cervix Screening for human papillomavirus HEPATITIS C ANTIBODY, CONVERSION Routine 09/16/2010 12:21 PM EDT from Last 3 Months or Most Recently Relevant to Health Maintenance Results * Due to [place] Ischemix law, this organization might not be sharing [...] - 145 mmol/L 06/02/2022 1:07 PM EDT [facility] K 3.9 3.5 - 5.3 mmol/L 06/02/2022 1:07 PM EDT [facility] Cl 105 98 - 107 mmol/L 06/02/2022 1:07 PM EDT [facility] CO2 26 22 - 30 mmol/L 06/02/2022 1:07 PM EDT [facility] BUN 13 7 - 18 mg/dL 06/02/2022 1:07 PM EDT [facility] Creatinine 0.98 0.60 - 1.30 mg/dL 06/02/2022 1:07 PM EDT [facility] Glucose 129(H) 70 - 99 mg/dL 06/02/2022 1:07 PM EDT [facility] Calcium 9.6 8.5 - 10.1 mg/dL 06/02/2022 1:07 PM EDT [facility] Anion Gap 2(L) 5 - 15 06/02/2022 1:07 PM EDT [facility] eGFR 74(L) >=90 mL/min/1. 73m2 06/02/2022 1:07 PM EDT [facility] Comment: Estimated Glomerular Filtration Rate (GFR) [...] Vazquez MD LAB BLOOD ORDERABLES Final Result [facility] [address] [place] [address], [place] * (ABNORMAL) [facility] w/HPV, mRNA E6/E7, Reflex 16/18/45 (08/08/2017 11:00 AM EDT) [facility] TIS, mRNA E6/E7 Jessica See Below(A) [employer] Comment: TIS,mRNA E6/E7 JESSICA CLINICAL INFORMATION: None given LMP: 07/11/17 PREV. PAP: 2010 PAP LGSIL PREV. BX: NONE GIVEN SOURCE: Cervix, Endocervix STATEMENT OF ADEQUACY: Satisfactory for evaluation. Endocervical/transformation zone component present. GENERAL CATEGORIZATION: EPITHELIAL CELL ABNORMALITY INTERPRETATION/RESULT: Low Grade Squamous Intraepithelial Lesion (LSIL) COMMENT: This Pap test has been evaluated with computer assisted technology. MOTOR LODGE CLERK: SHARI ALMONTE(ASCP) CT screening location: [place] [address] PATHOLOGIST: Maxwell Oreilly M.D. Direct , Board Certified in Anatomic and Clinical Pathology and Cytopathology (electronic signature) Consulting Pathologist [facility] [address] [place] [address] HPV mRNA E6/E7 Not Detected REFERENCE RANGE: Not Detected This test was performed using the APTIMA HPV Assay ([employer] This assay detects E6/E7 viral messenger [...] ORDER STELLA Final Result [facility] [address] [facility] [address]rd Floor, [place] [address], [place] [phone] [facility] [address] [facility] [address]rd Floor, [place] [address], * HEPATITIS C ANTIBODY, CONVERSION (09/16/2010 12:21 [...] Result [facility] [employer] [address] [place] [address], from Last 3 Months or Most Recently Relevant to Health Maintenance Insurance [facility] [place] Advance Directives Documents on File Type Date Recorded 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
--- OUTSIDE RECORDS SUMMARY | 2025-02-20 19:29 | XMS_ITS | Encounter Summary ---
Author Organization [employer] Address [address] [place] [address] 7t [place] [address] Care Team Providers Care Chronograph Operator Name Role Phone Shruti Campos MD Primary Care Pro vider Reason for Visit * Reason Onset Date Comments Med Refill 06/23/2024 Encounter Details Date Type Department Care Team ([facility] st Contact Info) Description 06/23/2024 Refill [facility] MEDICINE [address] [place], [place] [phone] Rosana Jaramillo MD [address] [place] [address] Anxiety Social History Tobacco Use Types Packs/Day [...] Description 02/26/2025 10:45 AM EST Office Visit [facility] MEDICINE [address] [place] [address] Shruti Campos MD [address] [place] [address] documented as of this encounter Visit Diagnoses Diagnosis Anxiety Anxiety state, unspecified documented in this encounter Additional Health Concerns Assessment Noted Time PHQ-9 Depression Total Score: 18 024 12:25 PM EST documented as of this encounter Care Teams Chronograph Operator Relationship Specialty Start Date End Date Shruti Campos MD [address] [place] [address] PCP - General Internal Medicine 05/11/23 documented as of this encounter
--- OUTSIDE RECORDS SUMMARY | 2025-02-20 19:29 | XMS_ITS | Encounter Summary ---
Author Organization [employer] Address [address] [facility] 7t [place] [address] Care Team Providers Care Manager Investigations Name Role Phone Shruti Campos MD Primary Care Pro vider Reason for Visit * Reason Comments Med Refill Encounter Details Date Type Department Care Team ([facility] Contact Info) Description 10/06/2024 Refill [facility] MED[facility] [address] [place], [place] [phone] Shruti Campos MD [address] [place] [address] Social History Tobacco Use Types Packs/Day Years [...] Description 02/26/2025 10:45 AM EST Office Visit [facility] MEDIC[facility] [address] [place] [address] Shruti Campos MD [address] [place] [address] documented as of this encounter Visit Diagnoses Not on filedocumented in this encounter Additional Health Concerns Assessment Noted Time PHQ-9 Depression Total Score: 0 07/22/19 25 1:07 PM EDT documented as of this encounter Care Teams Manager Investigations Relationship Specialty Start Date End Date Shruti Campos MD [address] [place] [address] PCP - General Internal Medicine 05/11/23 documented as of this encounter
--- OUTSIDE RECORDS SUMMARY | 2025-02-20 19:29 | XMS_ITS | Encounter Summary ---
Author Organization [employer] Address [address] [facility] 7t [place] [address] Care Team Providers Care Owner Operator Tanker Truck Driver Name Role Phone Shruti Campos MD Primary Care Pro vider Reason for Visit * Reason Comments Med Refill Encounter Details Date Type Department Care Team ([facility] st Contact Info) Description 01/14/2024 Refill [facility] [address] [place], [place] [phone] Shruti Campos MD [address] [place] [address] Social History Tobacco Use Types Packs/Day Years [...] Description 02/26/2025 10:45 AM EST Office Visit [facility] [address] [place] [address] Shruti Campos MD [address] [place] [address] documented as of this encounter Visit Diagnoses Not on filedocumented in this encounter Additional Health Concerns Assessment Noted Time PHQ-9 Depression Total Score: 18 024 12:25 PM EST documented as of this encounter Care Teams Owner Operator Tanker Truck Driver Relationship Specialty Start Date End Date Shruti Campos MD [address] [place] [address] PCP - General Internal Medicine 05/11/23 documented as of this encounter
== END 2025-02-20 14:40 | disposition home or self-care (01) ==
LOC: HO.ACS 14:09
PROVIDERS: PCP Student in an Organized Health Care Education/Training Program; Visit Provider Internal Medicine Medical Oncology
DX: Z79.01 Long term (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 (principal)

== ENCOUNTER → 2025-02-20 14:09 | Outpatient (BNVA) | payer MEDICAID, SELFPAY | PROVIDERS: PCP Student in an Organized Health Care Education/Training Program; Visit Provider Internal Medicine Medical Oncology | DX: I48.0 Paroxysmal atrial fibrillation (principal); Z51.81 Encounter for therapeutic drug level monitoring; Z79.01 Long term (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 | CPT/HCPCS: 85610; 99211 ==

== ENCOUNTER 2025-02-23 11:25 | Outpatient (REF) | payer MEDICAID, SELFPAY ==
[2025-02-23 13:45] LABS: MANUAL DIFF FLAG NO
[2025-02-23 14:03] LABS: Hematocrit 34.0 % (37.0-47.0); Hemoglobin 10.2 g/dl (12.0-16.0); Imm Gran Abs Auto 0.03 X10*3/uL (0.00-0.03); Imm Gran Pct Auto 0.3 % (0.0-0.4); Lymphocytes Absolute Auto 2.2 X10*3/uL (1.2-4.9); Mean Corpuscular HGB Conc 30.0 g/dl (31.0-35.0); Mean Corpuscular Hemoglobin 22.5 pg (27.0-33.0); Mean Corpuscular Volume 75.1 fL (80.0-98.0); NRBC Abs Auto 0.000 X10*3/uL (0.0-0.012); NRBC Pct Auto 0.0 /100WBC (0.0-0.2); Platelet Count 331 X10*3/uL (160-400); Red Blood Count 4.53 X10*6/uL (4.20-5.50); White Blood Count 9.2 X10*3/uL (4.8-10.8)
[2025-02-23 14:16] LABS: Microalbum/Creatinine Ratio Ur 36.3 ug/mg cr (<30)
[2025-02-23 14:23] LABS: Alanine Aminotransferase 55 U/L (0-31); Albumin Level 4.0 g/dL (3.5-5.0); Alkaline Phosphatase 64 U/L (39-117); Anion Gap 11 (12-20); Aspartate Amino Transferase 50 U/L (5-31); Blood Urea Nitrogen 21 mg/dL (9-16); Calcium 9.2 mg/dL (8.4-10.2); Carbon Dioxide 24 mmol/L (22-29); Chloride 108 mmol/L (96-108); Cholesterol 204 mg/dL (<200); Estimated Glomerular Filt Rate > 60; HDL Cholesterol 49 mg/dL (>40); Iron 30 mcg/dL (30-160); Percent Iron Saturation 8 % (15-50); Potassium 4.6 mmol/L (3.3-5.1); Sodium 138 mmol/L (135-145); Total Iron Binding Capacity 366 mcg/dL (228-428); Total Protein 7.9 g/dL (6.5-8.0); Triglycerides 117 mg/dL (<150); Unsaturated Iron Binding 336 ug/dL
[2025-02-23 14:25] LABS: Cholesterol 206 mg/dL (<200); HDL Cholesterol 48 mg/dL (>40); Triglycerides 117 mg/dL (<150)
[2025-02-23 14:43] LABS: Ferritin 13 ng/mL (10-250)
[2025-02-23 15:22] LABS: CT PCR Urine NOT DETECTED (Not Detect.); NG PCR Urine NOT DETECTED (Not Detect.)
[2025-02-23 20:25] LABS: Folate 6.3 ng/mL (> or = 4.0); Vitamin B12 362 pg/mL (200-900)
[2025-02-24 04:38] LABS: Syphilis Screen Nonreactive (Nonreactive)
[2025-02-24 05:07] LABS: HBsAGNum1 0.46 S/CO (0.00-0.99); HIV Num 1 0.09 S/CO (0.00-0.99); Hepatitis B Surface Antigen Negative (Negative); ~HepC Num1 0.14 S/CO (0.00-0.79); ~Hepatitis C Antibody Nonreactive (Nonreactive)
== END 2025-02-23 11:26 | disposition home or self-care (01) ==
LOC: HO.HHCL 11:25
PROVIDERS: PCP Student in an Organized Health Care Education/Training Program; Visit Provider Student in an Organized Health Care Education/Training Program
DX: Z00.00 Encounter for general adult medical examination without abnormal findings (principal); Z11.59 Encounter for screening for other viral diseases; Z11.4 Encounter for screening for human immunodeficiency virus [HIV]; I48.0 Paroxysmal atrial fibrillation; I25.10 Atherosclerotic heart disease of native coronary artery without angina pectoris; Z20.2 Contact with and (suspected) exposure to infections with a predominantly sexual mode of transmission
CPT/HCPCS: 36415; 80053; 80061; 82043; 82306; 82570; 82607; 82728; 82746; 83036; 83540; 84443; 85025; 86780; 86803; 87340; 87389; 87491; 87591

== ENCOUNTER 2025-03-02 13:46 | Outpatient (AMB) | payer MEDICAID, SELFPAY ==
--- OUTSIDE RECORDS SUMMARY | 2025-02-26 10:45 | XMS_ITS | Encounter Summary ---
Author Organization [facility] Address [address] [place] [address] [address] [address] Care Team Providers Care Flame Hardening Machine Operator Name Role Phone Shruti Campos MD Primary Care Pro vider Reason for Referral * Consultation (Routine) - Authorized Specialty Diagnoses / Procedures Referred By Contalber t Referred To Contact Obstetrics and Gynecology Diagnoses Excessive bleeding in premenopausal period Iron deficiency anemia, unspecified iron deficiency anemia type Shruti Campos MD [address] [place] [address] Phone: tel: fax: [facility] Referral ID Status Reason Start Date Expiration Date Visits Requested Visits Authorized [id number] Authorized Specialty Services Required 02/26/2026 6 6 * Imaging (Routine) - Authorized Specialty Diagnoses / Procedures Referred By Contalber t Referred To Contact Radiology Diagnoses Cervical radiculopathy Procedures MR Cervical Spine w/o Contrast Shruti Campos MD [address] [place] [address] Phone: tel: fax: [facility] [address] [place] [phone] Phone: tel: fax: Referral ID Status Reason Start Date Expiration Date V isits Requested Visits Authorized [id number] Authorized 02/26/2025 02/26/2026 1 1 Encounter Details Date Type Department Care Team (Latest Contact Info) Description 02/26/2025 10:45 AM EST Office Visit [facility] [address] [place] [address] Shruti Campos MD [address] [place] [address] HAMLET (generalized anxiety disorder) (Primary Dx); Screening for colon cancer; Colon cancer screening; Cervical radiculopathy; Excessive bleeding in premenopausal period; Iron deficiency anemia, unspecified iron deficiency anemia type; Hyperlipidemia, unspecified hyperlipidemia type; Paroxysmal atrial fibrillation (CMS/HCC) (HCC); Essential hypertension; MCC (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; Morbid obesity (CMS/HCC) (HCC); Type 2 diabetes mellitus with microalbuminuria, without long-term current use of insulin (HCC); Constipation, unspecified constipation type; Health care maintenance; Major depressive disorder, recurrent, moderate (CMS/HCC) (HCC); Post traumatic stress disorder (PTSD); ANGELA (obstructive sleep apnea); Chronic pain syndrome; Transaminitis Social History Tobacco Use Types Packs/Day Years [...] Sign Reading Time Taken Comments Blood Pressure 118/78 02/26/2025 11:09 AM EST Pulse 90 02/26/2025 11:09 AM EST Temperature 36.1 C (97 F) 02/26/2025 11:09 AM EST Respiratory Rate 20 02/26/2025 11:09 AM EST Oxygen Saturation 99% 02/26/2025 11:09 AM EST Inhaled Oxygen Concentration - - Weight 129 kg (284 lb) 02/26/2025 11:09 AM EST Height 162.6 cm (5' 4 ) 02/26/2025 11:09 AM EST Body Mass Index 48.75 02/26/2025 11:09 AM EST documented in this encounter Functional Status * Over the last 2 weeks, how often have you been bothered by any of the following problems? Question Answer Date of Assessment Author Feeling nervous, anxious, or on edge 3 02/26/2025 11:10 AM EST Rosalind Miller MA Not being able to stop or co ntrol worrying 3 02/26/2025 11:10 AM EST Rosalind Miller MA Worrying too much about diff erent things 3 02/26/2025 11:10 AM EST Rosalind Miller [place] Trouble relaxing 3 02/26/2025 11:10 AM Rosalind Wen MA Being so restless that it is hard to sit still 3 02/26/2025 11:10 AM EST Rosalind Miller MA Becoming easily annoyed or irritable 3 02/26/2025 11:10 AM Rosalind Wen MA Feeling afraid as if somethi ng awful might happen 3 02/26/2025 11:10 AM Rosalind Wen MA HAMLET-7 Total Score 21 02/26/2025 11:10 AM Rosalind Wen MA documented as of this encounter Progress Notes * Shruti Handy MD - 02/26/2025 10:45 AM EST Subjective Patient ID: Bria Nevarez is a 44 y.o. female who presents for Annual exam HPI Use cane 44 years old F w PMX of Morbid Obesity s/p Laparoscopic Sleeve Gastrectomy,ANGELA, DM2,HTN, ParoxysmalA.Fib on AC, PCOS, Left Knee OA s/p ACL reconstruction,Depression,Lumbosacral and Cervical Radiculopathy,CTS .Asthma,GERD,Anemia,hx of shingles,Urinary incontinence Pt already following w PM for chronic back pain Comes for Annual exam and f lab results Reports unchanged but chronic neck pain radiated to her right arm associated w numbness on and off and weakness ------ -LMP: 02/03/2025 -------- Assessment and Plan: Health care maintenance -Annual exam done 02/2025 -contraceptive : none-partner s/p vasectomy -record of Pap smear (08/24/14): LGSIL, +HPV---11/2023 pap smear Neg/HPV neg told to repeat in 1y Rachel R --advised today to schedule apt today w Pam Garner -MM 07/2023 BIRAD 1----reorder again MM at last apt -pd to get done -today prescribed valium 2 mg that needs to take just prior procedure due to severe anxiety -Colonoscopy : never -refuse screening .Agreed today for Cologuard -order today and received teaching from HUBER , pt understands if abn result will need GI referral -Vaccines : Tdap 2011 and TD 2017 . COVID 19 never-refuse vaccine , Flu vaccine- refuse vaccine, HPV:never-refuse, P20 never for DM hx -refuse ,MMR immune in 2017,Hep B not immune -refuse -------- -02/2025 Vit D 27 -currently on Vit D 2000 u so increase to 5000 u -- check level in 6 months-apro Morbid Obesity -BMI 48<-- 49 -Lost 11 pounds in last 10 months on GLP1 and lately unchanged weight S/p Laparoscopic sleeve Gastrectomy in 03/2024 seen by clinic provider for acneiform rash in chin/neck tough per pt was associated w Trulicity so was switched to Ozempic. Pt states rash still is occurring but not as intense as w Trulicity --> then switched to Mounjaro -taking MVI daily -life style changes advised and activity as tolerated -Continue Mounjaro 10 mg weekly -----sent today new order for next dose 12.5 mg weekly DM2 HLD -02/23/2025 Hb1AC 6.4<--7.2, Microalb + 36.3 <---125.1 -Metformin -discontinued it due to redness of face from records 03/2024 seen by clinic provider for acneiform rash in chin/neck tough per pt was associated w Trulicity so was switched to Ozempic. Pt states rash still is occurring but not as intense as w Trulicity --> then switched to Mounjaro w resolution of symptom -horse breeder seen in 08/2023 --will advise next apt to schedule f up otherwise will do annual foot exam at next visit -supplier quality engineer seen in 07/2023 to f in 1 y -Increase Mounjaro to 12.5 mg weekly -Atorvastatin 10 mg ----pt received a new prescription of atorvastatin 80 mg and ezetimibe 10 mg daily from her boom operator, pt to start this week -will do DM Labs in 3 mo -sent fasting lipids and chem to be done in 2 months w changes done by cards recently -Sent glucomer today to check daily CBG----not cheking at home -advised pt to scheduled f up w her supplier quality engineer HTN Controlled (Cough with Lisinopril). -EKG baseline 06/2023 sinus rhythm, HR 72x',QTC 427, noted mild TWI in lead V5,V6,aVL and possible LVH -Renal doppler US 2016: unremarkable -supplier quality engineer seen in 07/2023 to f in 1 y --pt to call to schedule -02/23/2025 Microalb + 36.3 <---125.1 -Losartan 25 mg daily, 120 mg daily,Metorpolrol ER 50 mg daily and 25 mg HS ,clonidine 0.2 mg BID - w boom operator -advised to bring home BP readings at next apt -advised pt to scheduled f up w her supplier quality engineer Paroxysmal A.Fib On AC-Goal 2-3 ,denies bleeding and easy bruising -EKG 06/2023 sinus rhythm, HR 72x',QTC 427, noted mild TWI in lead V5,V6,aVL and possible LVH--pd toschedule apt w cards -TTE 05/2022 : Vigorous left ventricular systolic function. Estimated LVEF 65%. Concentric hypertrophy present, unable to accurately determine LV dimensions from parasternal long axis images available - Calc [id number] score of 3. -cards 05/2024 Continue warfarin therapy for full anticoagulation. Continue diltiazem and metoprolol. EKG was normal sinus rhythm. -continue to w coumadin clinic - Currently on Warfarin. (Patient was on Eliquis in the past but it was discontinued due to her history of PCOS and ruptured ovarian follicle as well pt reports hx of recurrent falls ,from cards' note also for morbid obesity hx ) -continue care w cards ANGELA hx Not able to use her machine -referred again at last apt to sleep med w obesity,loud snoring--saw sp to get test done ----got itdone pd to get results --advised pt to call sleep med Chronic pain syndrome Lumbosacral and Cervical Radiculopathy/moderate [...] and worsen mood -Marijuana smoking and eadibles 5 mg Q 12h for pain management -offered acupuncture-refuse -refuse pain chronic group -On methocarbamol 500 mg PO TID PRN px by PM -PM 08/2023 Px TENS unit ordered for neck ,shoudler pain, not taking gabapentin px by PM given was not helpful -referred to neck MRI today w that result to refer to NS vs spine sp Left knee OA - s/p ACL repair. [...] of peripheral neuropathy is present. -Ortho 10/19/2023 [facility] [place] Bilateral carpal tunnel syndrome, moderate to severe Symptoms rec for carpal tunnel syndrome is surgical intervention and referred to occupational hand therapy for range of motion and strengthening of bilateral hands - surgery offered by orthopedic--refuse surgery Hx PCOS -Reported per pt -pelvic US [...] -referred by Boogie Garner for Tv/pelvis US --For menorrhgia likely from AC but reorder TV/pelvic US -- gave today information to pt to call for apt Asthma -CT Chest Pulmonary Embolism w/ Contrast 04/2017: Small areas of tree-in-bud opacities in the right middle, right upper and left upper lobes, probably representing bronchiolitis. -not using albuterol feels controlled -will need to consider CT chest to eval above findings -hold for now will offer in future until complete rest of eval Depression/HAMLET/PTSD PHQ 12<--- 18 HAMLET 21<----21<----19< --- 21 no SI , no halluicnations, no gabriella , reports OCD and ADHD - saw pt at last apt -referred to out pt tx for---but pt refusing to follow -Tried Cymbalta 20 mg daily but states worsen mood and stopped -refusing to try other antidepressants ,pt states symptoms are mainly associated w chronic pain -takes [id number] mg HS daily pxed by neurologist -valium only PRN for procedure -denies at home -pt call when needs fo test -agreed today to see -Bobbi Garner to refer for virtual psychiatrist pt agreed today -will hold on venlafaxine idea for now given pt ok to start care w psychiatrist . Per no concern for ADHD,mainly anxiety and depression GERD -on omeprazole 20 mg daily-tried to stop w recurrent symptoms -life style changes advised -referred to GI -- gave information to pt to call for apt Constipation -life stye changes advised , increase hydration and activity -pt on bisacodyl, colace,miralax w no major improvement -continue linzess that is helping -Referred to GI -- gave information to pt to call for apt Glaucoma left eye glaucoma per pt -supplier quality engineer seen in 07/2023 to f in 1 y --advised to reschedule apt Anemia Menorrhagia -02/23/2025 Hb 10.2 .MCV 75.1 , iron % sat low rest of iron panel wnl -06/2023 hb 10.9 ,MCV 72.9 , Vit B12/folic acid wnl -s/p bariatric surgery and ,heavy menstrual periods since taking warfarin -increase iron today to twice a day from daily -will check CBC in 2 mo -ordered already-----if no better w iron BID will refer to administrative executive forIV iron pt wants to hold on that now . -referred by Boogie Garner for Tv/pelvis US --For menorrhgia likely from AC but reorder TV/pelvic US -- gave today information to pt to call for apt -referred today to COMPUTER PROGRAMMER for heavy menorrhagia Venous insufficiency Chronic bilateral LE swelling,used compressions stockings in the past Pt is using compressions stockings helping w leg cramps Skin lesion -flat skin lesion in her forehead -possible keratosis -referred to tune up mechanic at last apt -seen already Urinary incontinence Hx of urinary incontinence when cough no other symptoms From Pam Garner evaluation back in 11/2023 Mild rectocele with Valsalva, poor tone with Kegels Discussed pelvic floor PT vs urogyn evaluation. Will refer to urogyn given long waitlists with pelvic floor PT --Referred then to uroGYN Transaminitis -02/23/2025 AST 50 ALT 55 Denies NSAIDS use possible from fatty liver ? -pt to start new meds for HLD per cards -repeat chem in 2 mo ,if no better will refer then for abdominal US Review of Systems Constitutional: Negative. Negative for chills, fatigue and fever. HENT: Negative. Eyes: Negative. Negative for visual disturbance. Respiratory: Negative. Negative for cough, chest tightness, shortness of breath and wheezing. Cardiovascular: Negative. Negative for chest pain, palpitations and leg swelling. Gastrointestinal: Negative. Negative for abdominal pain. Genitourinary: Negative. Musculoskeletal: Negative. Chronic neck pain w right arm pain , weakness Neurological: Negative. Negative for dizziness, syncope, speech difficulty, weakness, light-headedness, numbness and headaches. Hematological: Negative. Psychiatric/Behavioral: Positive for behavioral problems. Negative for suicidal ideas. The patient is nervous/anxious. Objective BP 118/78 (BP Location: Left arm, Patient Position: Sitting, BP Cuff Size: Adult) Pulse 90 Temp97 ??F (36.1 ??C) (Temporal) Resp 20 Ht 5' 4 (1.626 m) Wt 284 lb (129 kg) SpO2 99% BMI 48.75 kg/m?? Physical Exam Vitals reviewed. Constitutional: General: She is not in acute distress. Appearance: Normal appearance. She is obese. Comments: Walks w a cane HENT: Head: Normocephalic and atraumatic. Right Ear: Tympanic membrane and ear canal normal. Left Ear: Tympanic membrane and ear canal normal. Mouth/Throat: Mouth: Mucous membranes are moist. Pharynx: Oropharynx is clear. Eyes: Extraocular Movements: Extraocular movements intact. Pupils: Pupils are equal, round, and reactive to light. Cardiovascular: Rate and Rhythm: Normal rate and regular rhythm. Heart sounds: Normal heart sounds. No murmur heard. Pulmonary: Effort: Pulmonary effort is normal. Breath sounds: Normal breath sounds. Abdominal: General: Abdomen is flat. Bowel sounds are normal. Palpations: Abdomen is soft. Musculoskeletal: General: Normal range of motion. Cervical back: Normal range of motion and neck supple. Comments: 4/5 strength both arms , neck pain in paraspinal points Skin: General: Skin is warm. Neurological: General: No focal deficit present. Mental Status: She is alert and oriented to person, place, and time. Mental status is at baseline. Psychiatric: Mood and Affect: Mood normal. Behavior: Behavior normal. Assessment/Plan Problem List Items Addressed This Visit HAMLET (generalized anxiety disorder) - Primary Relevant Medications diazePAM (Valium) 2 MG tablet Chronic pain syndrome Relevant Medications diazePAM (Valium) 2 MG tablet Essential hypertension MCC (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 Cervical radiculopathy (Chronic) Relevant Medications diazePAM (Valium) 2 MG tablet Other Relevant Orders MR Cervical Spine w/o Contrast Major depressive disorder, recurrent, moderate (CMS/HCC) ([facility]) Relevant Medications diazePAM (Valium) 2 MG tablet Morbid obesity (CMS/HCC) ([facility]) Relevant Medications atorvastatin (Lipitor) 80 MG tablet ezetimibe (Zetia) 10 MG tablet Tirzepatide (Mounjaro) 12.5 MG/0.5ML solution auto-injector ANGELA (obstructive sleep apnea) Relevant Medications diazePAM (Valium) 2 MG tablet Paroxysmal atrial fibrillation (CMS/HCC) ([facility]) Post traumatic stress disorder (PTSD) Relevant Medications diazePAM (Valium) 2 MG tablet Type 2 diabetes mellitus with microalbuminuria, without long-term current use of insulin (HCC) Relevant Medications atorvastatin (Lipitor) 80 MG tablet ezetimibe (Zetia) 10 MG tablet Tirzepatide (Mounjaro) 12.5 MG/0.5ML solution auto-injector Health care maintenance Anemia Relevant Medications bisacodyl (Bisacodyl EC) 5 MG EC tablet ferrous gluconate (Fergon) 324 (38 Fe) MG tablet Ascorbic Acid (vitamin C) 250 MG tablet Other Relevant Orders Referral to Obstetrics / Gynecology CBC auto differential Constipation Relevant Medications bisacodyl (Bisacodyl EC) 5 MG EC tablet ferrous gluconate (Fergon) 324 (38 Fe) MG tablet cholecalciferol (Vitamin D-3) 125 MCG (5000 UT) capsule Transaminitis Relevant Medications bisacodyl (Bisacodyl EC) 5 MG EC tablet Other Visit Diagnoses Screening for colon cancer Relevant Medications bisacodyl (Bisacodyl EC) 5 MG EC tablet ferrous gluconate (Fergon) 324 (38 Fe) MG tablet cholecalciferol (Vitamin D-3) 125 MCG (5000 UT) capsule Other Relevant Orders Cologuard?? colon cancer screening Colon cancer screening Relevant Medications bisacodyl (Bisacodyl EC) 5 MG EC tablet ferrous gluconate (Fergon) 324 (38 Fe) MG tablet cholecalciferol (Vitamin D-3) 125 MCG (5000 UT) capsule Other Relevant Orders Cologuard?? colon cancer screening Excessive bleeding in premenopausal period Relevant Medications ferrous gluconate (Fergon) 324 (38 Fe) MG tablet Other Relevant Orders Referral to Obstetrics / Gynecology Hyperlipidemia, unspecified hyperlipidemia type Relevant Medications atorvastatin (Lipitor) 80 MG tablet ezetimibe (Zetia) 10 MG tablet Tirzepatide (Mounjaro) 12.5 MG/0.5ML solution auto-injector Other Relevant Orders Comprehensive Metabolic Panel Lipid Panel, Standard documented in this encounter Plan of Treatment Upcoming Encounters Date Type Department Care Team (Late st Contact Info) Description 06/04/2025 1:15 PM EDT Office Visit [facility] [address] [place] [phone] Shruti Campos MD [address] [place] [address] Scheduled Orders Name Type Priority Associated Diagnoses Orde r Schedule Cologuard colon cancer screening Lab Routine Screening for colon cancer Colon cancer screening Ordered: 02/26/2025 MR Cervical Spine w/o Contrast Imaging Routine Cervical radiculopathy Expected: 02/26/2025, Expires: 02/26/2026 CBC auto differential Lab Routine Iron deficiency anemia, unspecified iron deficiency anemia type Expected: 04/29/2025 (Approximate), Expires: 02/26/2026 Comprehensive Metabolic Panel Lab Routine Hyperlipidemia, unspecified hyperlipidemia type Expected: 04/29/2025 (Approximate), Expires: 02/26/2026 Lipid Panel, Standard Lab Routine Hyperlipidemia, unspecified hyperlipidemia type Expected: 04/29/2025 (Approximate), Expires: 02/26/2026 Scheduled Referrals Name Type Priority Associated Diagnoses Orde r Schedule Referral to Obstetrics / Gynecology Outpatient Referral Routine Excessive bleeding in premenopausal period Iron deficiency anemia, unspecified iron deficiency anemia type Expected: 02/26/2025 (Approximate), Expires: 02/26/2026 documented as of this encounter Goals Goal [...] Weekly blood pressure task No Madelyn Barrera, RN Patient has chronic kidney disease Care [...] Care Plan Weekly blood pressure task No Katty Bai MA Weekly blood pressure task Care Plan Weekly blood pressure task No Katty Bai [place] Patient has chronic kidney disease Care Plan Patient has chronic kidney disease No Katty Bai [place] Patient has chronic kidney disease Care Plan Patient has chronic kidney disease No Katty Bai MA Weekly blood pressure task Care Plan Weekly blood pressure task No Katty Bai MA Weekly blood pressure task Care Plan Weekly blood pressure task No Katty Bai [place] Patient has chronic kidney disease Care Plan Patient has chronic kidney disease No Katty Bai [place] Patient has chronic kidney disease Care Plan Patient has chronic kidney disease No Katty Bai MA Weekly blood pressure task Care Plan Weekly blood pressure task No Rosalind Miller MA Weekly blood pressure task Care Plan Weekly blood pressure task No Rosalind Miller [place] Patient has chronic kidney disease Care Plan Patient has chronic kidney disease No Rosalind Miller [place] Patient has chronic kidney disease Care Plan Patient has chronic kidney disease No Rosalind Miller MA documented as of this encounter Visit Diagnoses Diagnosis HAMLET (generalized anxiety disorder)- Primary Generalized anxiety disorder Screening for colon cancer Special screening for malignant neoplasms, colon Colon cancer screening Special screening for malignant neoplasms, colon Cervical radiculopathy Brachial neuritis or radiculitis nos Excessive bleeding in premenopausal period Iron deficiency anemia, unspecified iron deficiency anemia type Hyperlipidemia, unspecified hyperlipidemia type Paroxysmal atrial fibrillation (CMS/HCC) (HCC) Atrial fibrillation Essential hypertension Unspecified essential hypertension MCC (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 Long-term (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 Morbid obesity (CMS/HCC) (HCC) Morbid obesity Type 2 diabetes mellitus with microalbuminuria, without long-term current use of insulin (HCC) Constipation, unspecified constipation type Health care maintenance Major depressive disorder, recurrent, moderate (CMS/HCC) (HCC) Major depressive disorder, recurrent episode, moderate Post traumatic stress disorder (PTSD) ANGELA (obstructive sleep apnea) Obstructive sleep apnea (adult) (pediatric) Chronic pain syndrome Transaminitis Nonspecific elevation of levels of transaminase or lactic acid dehydrogenase (LDH) documented in this encounter Additional Health Concerns Active [...] kidney disease 02/20/2025 Weekly blood pressure task 02/23/2025 Weekly blood pressure task 02/23/2025 Patient has chronic kidney disease 02/23/2025 Patient has chronic kidney disease 02/23/2025 Weekly blood pressure task 02/25/2025 Weekly blood pressure task 02/25/2025 Patient has chronic kidney disease 02/25/2025 Patient has chronic kidney disease 02/25/2025 Weekly blood pressure task 02/25/2025 Weekly blood pressure task 02/25/2025 Patient has chronic kidney disease 02/25/2025 Patient has chronic kidney disease 02/25/2025 Weekly blood pressure task 02/26/2025 Weekly blood pressure task 02/26/2025 Patient has chronic kidney disease 02/26/2025 Patient has chronic kidney disease 02/26/2025 Assessment Noted Time PHQ-9 Depression Total Score: 0 07/22/19 25 1:07 PM EDT documented as of this encounter Care Teams Flame Hardening Machine Operator Relationship Specialty Start Date End Date Shruti Campos MD [address] [place] [phone] PCP - General Internal Medicine 05/11/23 documented as of this encounter
[2025-03-02 13:58] LABS: Prothrombin Time Whole Bld POC 18.8 sec (11.1-13.5); ~PT, ~INR - Anti Coag Clinic 1.6 (0.9-1.1)
--- NOTE | 2025-03-02 14:15 | MHC.OFFVISCO ---
Intake Intake Visit Reasons: Anticoagulation Allergies lisinopril Allergy (Mild, Verified 03/02/25 13:48) Cough duloxetine (From Cymbalta) Adverse Reaction (Verified 03/02/25 13:48) Palpitations Medication List - Last Reconciled 03/02/25 by Candi Stone, RN albuterol sulfate 90 mcg/actuation (Ventolin HFA) 2 puffs inhalation Q6H PRN ascorbic acid (vitamin C) 250 mg PO DAILY atorvastatin (Lipitor) 80 mg PO DAILY bisacodyl 5 mg PO DAILY PRN blood sugar diagnostic (FreeStyle Lite Strips) As directed bupropion HCl SR (Wellbutrin SR) 150 mg PO DAILY 1 month MDD 150mg cholecalciferol (vitamin D3) 125 mcg PO DAILY clindamycin phosphate 1% topical BID clonidine HCl 0.2 mg PO BID diltiazem HCl CD 120 mg PO DAILY docusate sodium 100 mg PO BID PRN ezetimibe 10 mg PO DAILY ferrous gluconate 324 mg PO 3XW lancets (FreeStyle Lancets) As directed linaclotide (Linzess) 145 mcg PO QAM loratadine 10 mg PO DAILY lorazepam 0.5 mg PO QAM PRN losartan 25 mg PO DAILY magnesium oxide 200 mg PO BID PRN metoprolol succinate ER 25 mg PO BID omeprazole 20 mg PO DAILY polyethylene glycol 3350 (Gavilax) 17 grams PO DAILY tirzepatide (Mounjaro) 10 mg subcut QWEEK warfarin 2 mg See Protocol PO DIRECTED Nursing Note INR: 1.6 out of therapeutic range of 2-3 Medications and supplements reviewed Patient status: no changes Medications or supplements: see updated list. Starting Ezetimibe and and increased dose of Atorvastatin. Will be starting this week but pt not sure what day. Both meds can raise the INR. Diet: same Denies any signs and symptoms of bleeding or clotting or unusual bruising Bleeding, bruising, clotting discussed Dose: increase today's dose to 4mg (2mg) and increase tomorrow's dose to 3mg (2mg) then usual dose of 2mg daily F/U INR Date: 1 week?? Patient verbalizing understanding of instructions given. Anti-Coag Initial Assessment Social Hx Patient Tobacco Use Status: Former Tobacco user Smoking packs per day: 0.5 alcohol intake: never Cardiovascular Hx: HTN and Arrhythmias Lung Disease HX: Asthma Endocrine Hx: Diabetes Musculoskeletal Hx: Osteoporosis Blood Disorder Hx: Anemia and Hyperlipidemia Hx: Kidney Disease Neurological Hx: Migraines/Headaches Cancer HX: No Psych. Illness/Depression: Yes Coding Level of Care Code Est Patient Level 1 Diagnoses Current use of anticoagulant therapy Z79.01 Assessment & Plan Assessment & Plan (1) Current use of anticoagulant therapy: Code(s): Z79.01 - rn long term care (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 Category: Medical
--- OUTSIDE RECORDS SUMMARY | 2025-03-02 17:13 | XMS_ITS | Clinical Summary ---
Author Organization [facility] Address [address] [place] [address] Care Team Providers Care Supply Room Clerk Name Role Phone Unavailable Primary Care [...] pain syndrome 01/20/2019 Episodic mood disorder 05/15/2018 supervisor intermediates (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 2017 PVD (peripheral [...] absorb on its own. Follow up with CARDIAC CATHETERIZATION TECHNICIAN in 2-3 weeks to discuss management [...] for 05/01 at 11:15 AM at [facility] Essential hypertension 04/23/2017 Assessment & Plan [...] asymptomatic. Recommend follow up with Dr. Liriano -CARDIAC CATHETERIZATION TECHNICIAN in 2-3 weeks after discharge. Patient [...] PRN for SOB - Supplemental O2 by [place] for O2 sats <92 - Dextromorphan PRN [...] Varicella Vaccines Discontinued Procedures * Due to [place] [employer] law, this organization might not be sharing negative HIV tests. Procedure Name Priority Date/Time Associated Diagnosis Comments POCT HEMOGLOBIN A1C, CMG, NON-INTERFACED Routine 06/05/2022 11:58 AM EDT Type 2 diabetes mellitus with other specified complication, unspecified whether extermination supervisor insulin use BASIC METABOLIC PANEL STAT 06/02/2022 12:15 PM EDT [facility] W/HPV, MRNA E6/E7, REFLEX 16/18/45 Routine 08/08/2017 11:00 AM EDT Screening for malignant neoplasm of cervix Screening for human papillomavirus HEPATITIS C ANTIBODY, CONVERSION Routine 09/16/2010 12:21 PM EDT from Last 3 Months or Most Recently Relevant to Health Maintenance Results * Due to [place] [employer] law, this organization might not be sharing [...] - 145 mmol/L 06/02/2022 1:07 PM EDT [facility] K 3.9 3.5 - 5.3 mmol/L 06/02/2022 1:07 PM EDT [facility] Cl 105 98 - 107 mmol/L 06/02/2022 1:07 PM EDT [facility] CO2 26 22 - 30 mmol/L 06/02/2022 1:07 PM EDT [facility] BUN 13 7 - 18 mg/dL 06/02/2022 1:07 PM EDT [facility] Creatinine 0.98 0.60 - 1.30 mg/dL 06/02/2022 1:07 PM EDT [facility] Glucose 129(H) 70 - 99 mg/dL 06/02/2022 1:07 PM EDT [facility] Calcium 9.6 8.5 - 10.1 mg/dL 06/02/2022 1:07 PM EDT [facility] Anion Gap 2(L) 5 - 15 06/02/2022 1:07 PM EDT [facility] eGFR 74(L) >=90 mL/min/1. 73m2 06/02/2022 1:07 PM EDT [facility] Comment: Estimated Glomerular Filtration Rate (GFR) [...] Vazquez MD LAB BLOOD ORDERABLES Final Result [facility] [address] [place] [address], [place] * (ABNORMAL) [facility] Pap w/HPV, mRNA E6/E7, Reflex 16/18/45 (08/08/2017 11:00 AM EDT) [facility] TIS, mRNA E6/E7 Jessica See Below(A) Tout Comment: TIS,mRNA E6/E7 JESSICA CLINICAL INFORMATION: None given LMP: 07/11/17 PREV. PAP: 2010 PAP LGSIL PREV. BX: NONE GIVEN SOURCE: Cervix, Endocervix STATEMENT OF ADEQUACY: Satisfactory for evaluation. Endocervical/transformation zone component present. GENERAL CATEGORIZATION: EPITHELIAL CELL ABNORMALITY INTERPRETATION/RESULT: Low Grade Squamous Intraepithelial Lesion (LSIL) COMMENT: This Pap test has been evaluated with computer assisted technology. [employer] GUIDANCE COUNSELOR: SHARI ALMONTE(ASCP) CT screening location: [place] [address] PATHOLOGIST: Maxwell Oreilly M.D. Direct , Board Certified in Anatomic and Clinical Pathology and Cytopathology (electronic signature) Consulting Pathologist [facility] [address] [place] [address] HPV mRNA E6/E7 Not Detected REFERENCE RANGE: Not Detected This test was performed using the APTIMA HPV Assay ([employer] This assay detects E6/E7 viral messenger [...] ORDER STELLA Final Result [facility] [address] [facility] 3rd Floor, [place] [address], [place] [phone] [facility] [address] [facility] [facility] 3[address], [place] [address], * HEPATITIS C ANTIBODY, CONVERSION (09/16/2010 12:21 PM EDT) Hepatitis C Antibody <0.02 <1.00 IV [facility] Comment: Negative Not infected with HCV, unless recent infection is suspected or other evidence exists to indicate HCV infection. 09/16/2010 12:2 1 PM EDT 09/16/2010 1:08 PM EDT Paula Valdez MD LAB HISTORICAL RESULTS F inal Result [facility] [address] [place] [address], from Last 3 Months or Most Recently Relevant to Health Maintenance Insurance [email or web address] [place] Advance Directives Documents on File Type Date Recorded Patient Cap Sizer Expl 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
--- OUTSIDE RECORDS SUMMARY | 2025-03-02 17:13 | XMS_ITS | Encounter Summary ---
Author Organization [employer] Address [address] [facility] 7t [place] [address] Care Team Providers Care Nickel Plater Name Role Phone Shruti Campos MD Primary Care Pro vider Reason for Visit * Reason Comments Med Change Request Encounter Details Date Type Department Care Team ([facility] Contact Info) Description 02/12/2024 Refill [facility] [address] [place], [place] [phone] Shruti Campos MD [address] [place] [address] Social History Tobacco Use Types Packs/Day Years [...] 1:15 PM EDT Office Visit [facility] [address] [place] [address] Shruti Campos MD [address] [place] [address] documented as of this encounter Visit Diagnoses Not on filedocumented in this encounter Additional Health Concerns Assessment Noted Time PHQ-9 Depression Total Score: 18 024 12:25 PM EST documented as of this encounter Care Teams Nickel Plater Relationship Specialty Start Date End Date Shruti Campos MD [address] [place] [phone] PCP - General Internal Medicine 05/11/23 documented as of this encounter
--- OUTSIDE RECORDS SUMMARY | 2025-03-02 17:13 | XMS_ITS | Encounter Summary ---
Author Organization [employer] Address [address] [facility] 7t [place] [address] Care Team Providers Care Grain Blender Name Role Phone Shruti Campos MD Primary Care Pro vider Reason for Visit * Reason Comments Med Refill Encounter Details Date Type Department Care Team ([facility] Contact Info) Description 12/16/2023 Refill [facility] [address] [place], [place] [phone] Shruti Campos MD [address] [place] [address] Social History Tobacco Use Types Packs/Day Years [...] Description 06/04/2025 1:15 PM EDT Office Visit [facility] [address] [place] [address] Shruti Campos MD [address] [place] [address] documented as of this encounter Visit Diagnoses Not on filedocumented in this encounter Additional Health Concerns Assessment Noted Time PHQ-9 Depression Total Score: 18 024 12:25 PM EST documented as of this encounter Care Teams Grain Blender Relationship Specialty Start Date End Date Shruti Campos MD [address] [place] [address] PCP - General Internal Medicine 05/11/23 documented as of this encounter
--- OUTSIDE RECORDS SUMMARY | 2025-03-02 17:13 | XMS_ITS | Encounter Summary ---
Author Organization [employer] Address [address] [place] [address] 7 [place] [address] Care Team Providers Care Securities Sales Associate Name Role Phone Shruti Campos MD Primary Care Pro vider Reason for Visit * Reason Onset Date Comments chart prep 02/25/2025 Encounter Details Date Type Department Care Team ([facility] st Contact Info) Description 02/25/2025 Telephone [facility] [address] [place] [address] [phone] Shruti Campos MD [address] [place] [address] chart prep Social History Tobacco Use Types Packs/Day Years [...] encounter Miscellaneous Notes * Telephone Encounter - Katty Bai MA - 02/25/2025 3:39 PM EST ..Chart Prep Labs: not applicable Images: not applicable Vaccines due: Covid Due and Flu Due Referrals: Not Applicable Screenings: Colonoscopy and PAP Overdue care gaps: GAD7 documented in this encounter Plan of Treatment Upcoming Encounters Date Type Department Care Team (Late st Contact Info) Description 06/04/2025 1:15 PM EDT Office Visit [facility] [address] [place] [address] Shruti Campos MD [address] [place] [address] documented as of this encounter Goals Goal [...] Care Plan Patient has chronic kidney disease Katty Hart MA documented as of this encounter Visit [...] 02/25/2025 Patient has chronic kidney disease 02/25/2025 Assessment Noted Time PHQ-9 Depression Total Score: 0 07/22/19 1:07 PM EDT documented as of this encounter Care Teams Securities Sales Associate Relationship Specialty Start Date End Date Shruti Campos MD [address] [place] [address] PCP - General Internal Medicine 05/11/23 documented as of this encounter
--- OUTSIDE RECORDS SUMMARY | 2025-03-02 17:13 | XMS_ITS | Clinical Summary ---
Author Organization [facility] Address [address] [place] [address] Care Team Providers Care Linotype Operator Name Role Phone Lisette Murillo Shelia Primary Care Provider [phone] Allergies No known active allergies Medications Oxycodone-Acetamin [...] MG Tab 1 TABLET twice daily Active Yecejveyye-XTBZ-Us ffeine (FIORICET) 50-300-40 MG Cap 1 OR [...] complete this topic Procedures * Due to [place] [employer] law, this organization might not be sharing [...] Health Maintenance Results * Due to [place] [employer] law, this organization might not be sharing negative HIV tests. * (ABNORMAL) SUREPATH FPGS,HPV,CT/GC PANEL (08/24/2014 4:01 PM EDT) Clinical information NONE GIVEN [facility] Comment:{CLINICAL INFORMATIO N: {[id number]) Date last menstrual period [id number] [facility] Comment:{LMP: {[id number]) Date of previous PAP smear NONE GIVEN [facility] Comment:{PREV. PAP: {[id number]) Date of previous biopsy NONE GIVEN [facility] Comment:{PREV. BX: {[id number]) Specimen source (Cvx/Vag) Cervix, Endocervix [facility] Comment:{SOURCE: {[id number]) Statement of Adequacy (Cvx/Vag) Satisfactory for evaluation. Endocervical/hearn sformation zone component absent. [facility] Comment:{STATEMENT OF ADEQUA CY: {[id number]) General categories (Cvx/Vag) EPITHELIAL CELL ABNORMALITY(A) [facility] Comment:{GENERAL CATEGORIZAT ION: {[id number]) Cytology, Pap Smear Low Grade Squamous Intraepithelial Lesion (LSIL)(A) [facility] Comment:{INTERPRETATION/RESU LT: {[id number]) Cytology study comment (Cvx/Vag) This Pap test has been evaluated with computer assisted technology. [facility] Comment:{COMMENT: {[id number]) Intervention Specialist (Cvx/Vag) MPG, CT(ASCP) [facility] Comment:{WINCH OPERATOR: { [id number]) Pathologist (Cvx/Vag) Lorena Mcgrath M.D., Board Certified in Anatomic and Clinical Pathology (electronic signature) Consulting Pathologist [facility] [address] [place] [address] [facility] Comment:{PATHOLOGIST: {[id number]) HPV MRNA E6/E7 Detected(A) Not Detected [facility] Comment: {HPV mRNA E6/E7, SUREPATH VIAL {[id number]) This test was performed using the APTIMA HPV Assay ([employer] This assay detects E6/E7 viral messenger RNA (mRNA) from 14 high-risk HPV types (16,18,31,33,35,39,45,51,52,56,58,59,66,68). The analytical performance characteristics of this assay, when used to test SurePath specimens, have been determined by [facility] Chlamydia trachomatis rRNA NOT DETECTED NOT DETECTED [facility] Comment:{CHLAMYDIA TRACHOMAT IS RNA, TMA {[id number]) Neisseria Gonorrhoeae rRNA NOT DETECTED NOT DETECTED [facility] Comment:{NEISSERIA GONORRHOE AE RNA, TMA {[id number]) COMMENT SEE NOTE [facility] Comment: {COMMENT {[id number]) This test was performed using the APTIMA COMBO2 Assay ([place] The analytical performance characteristics of this assay, when used to test SurePath specimens have been determined by [facility]. 08/24/2014 4:01 PM EDT 08/25/2014 1:12 AM EDT Narrative Resulting Agency Comment [id number] Estephania Skelton [facility]-INTERFACED Aissatou l Result Performing Organization Address [facility] Co de Phone Number [facility] [address] [place] [address] * HEPATITIS C ANTIBODY, SERUM (08/24/2014 1:40 PM EDT) Hepatitis C virus Ab NON-REACTI VE NON-REACT LEIGH ANN [facility] Comment:{HEPATITIS C ANTIBOD Y {[id number]) Hepatitis C virus Ab Signal/Cutoff 0.07 <1.00 [facility] Comment:{SIGNAL TO CUT-OFF { [id number]) 08/24/2014 1:40 PM EDT 08/25/2014 12:58 AM EDT Narrative Resulting Agency Comment [id number] Estephania Skelton [facility] Final Res ult Performing Organization Address [facility] de Phone Number [facility] [address] [place] [address] from Last 3 Months or Most Recently Relevant to Health Maintenance Insurance MEDICAID * Guarantor: [id number] [employer] Account Type Relation to Patient Date of Phone Billing Address Worker[employer] Comp [address] [place] [address] WORKERS COMPENSATION Care Teams Linotype Operator Relationship Specialty Start Date End Date Lisette Murillo [address] [place] [address] PCP - General Internal Medicine 11/20/14
--- OUTSIDE RECORDS SUMMARY | 2025-03-02 17:13 | XMS_ITS | Encounter Summary ---
Author Organization [employer] Address [address] [place] [address] 7t [place] [address] Care Team Providers Care Site Head Name Role Phone Shruti Campos MD Primary Care Pro vider Encounter Details Date Type Department Care Team ([facility] st Contact Info) Description 03/02/2025 Results Follow-Up [facility] [address] [place] [phone] Shruti Campos MD [address] [place] [address] ~PT, ~INR - ANTI COAG CLINIC, PROTHROMBIN [...] Encounter Note - Shruti Handy MD - 03/02/2025 2:00 PM EST On AC-Goal 2-3 -Pt follows at coumadin clinic at [facility] documented in this encounter Plan of Treatment Upcoming Encounters Date Type Department Care Team (Late st Contact Info) Description 06/04/2025 1:15 PM EDT Office Visit [facility] [address] [place] [address] Shruti Campos MD [address] [place] [address] documented as of this encounter Goals Goal [...] chronic kidney disease No Rosalind Miller MA Weekly blood pressure task Care Plan Weekly blood pressure task No Bobbi Cline LICSW Weekly blood pressure task Care Plan Weekly blood pressure task No Bobbi Cline AMBULATORY CARE Patient has chronic kidney disease Care Plan Patient has chronic kidney disease No Bobbi Cline LICSW Patient has chronic kidney disease Care Plan Patient has chronic kidney disease No Bobbi Cline LICSW Weekly blood pressure task Care Plan Weekly [...] 02/26/2025 Patient has chronic kidney disease 02/26/2025 Weekly blood pressure task 02/27/2025 Weekly blood pressure task 02/27/2025 Patient has chronic kidney disease 02/27/2025 Patient has chronic kidney disease 02/27/2025 Weekly blood pressure task 03/02/2025 Weekly blood pressure task 03/02/2025 Patient has chronic kidney disease 03/02/2025 Patient has chronic kidney disease 03/02/2025 Assessment Noted Time PHQ-9 Depression Total Score: 0 07/22/19 25 1:07 PM EDT documented as of this encounter Care Teams Site Head Relationship Specialty Start Date End Date Shruti Campos MD [address] [place] [address] PCP - General Internal Medicine 05/11/23 documented as of this encounter
--- OUTSIDE RECORDS SUMMARY | 2025-03-02 17:13 | XMS_ITS | Encounter Summary ---
Author Organization [employer] Address [address] [facility] 7t [place] [address] Care Team Providers Care Egg Separator Name Role Phone Shruti Campos MD Primary Care Pro vider Encounter Details Date Type Department Care Team (Late st Contact Info) Description 03/02/2025 Orders Only GENERIC EXTERNAL DATA DEPARTMENT Provider, [...] the past 12 months, has t he appsFreedom, [employer], oil or water [employer] threatened to shut off services in your [...] Description 06/04/2025 1:15 PM EDT Office Visit [facility] [address] [place] [address] Shruti Campos MD [address] [place], [place] [phone] documented as of this encounter Goals Goal [...] Plan Weekly blood pressure task No Rosalind Millre [place] Weekly blood pressure task Care Plan [...] blood pressure task No Bobbi Cline LICSW Patient has chronic [...] Comments PROTHROMBIN TIME WHOLE BLD POC Routine 03/02/2025 1:55 PM EST ~PT, ~INR - ANTI COAG CLINIC Routine 03/02/2025 1:55 PM EST documented in this encounter Results * (ABNORMAL) PROTHROMBIN TIME WHOLE BLD POC (03/02/2025 1:55 PM EST) Protime 18.8(H) 11.1 - 13.5 sec [facility] 03/02/2025 1:55 PM EST 03/02/2025 1:58 PM EST us Generic External Data Provider LAB BLOOD ORDERAB LES Final Result [facility] [address] [place] [address] [phone] * (ABNORMAL) ~PT, ~INR - ANTI COAG CLINIC (03/02/2025 1:55 PM EST) Prothrombin Time INR 1.6(H) 0.9 - 1.1 [facility] Comment:METER #: [id number] TERNATIONAL NORMALIZED RATIO (INR) REFERENCE RANGES Reference RangeFor patients not on anticoagulant therapy: 0.9 - 1.1INR ranges for oral anticoagulanttherapy:For prevention and treatment of venous thrombosis and pulmonary embolism: 2.0 - 3.0For acute myocardial infarction with aspirin therapy: 2.0 - 3.0For acute myocardial infarction without aspirin therapy: 3.0 - 4.0For patients with mechanical prosthetic heart valves: 2.5 - 3.5 03/02/2025 1:55 PM EST 03/02/2025 1:58 PM EST us Generic External Data Provider LAB BLOOD ORDERAB LES Final Result Performing Organization Address City/State/[facility] de Phone Number [facility] [address] [place] [phone] documented in this encounter Visit Diagnoses [...] documented as of this encounter Care Teams Egg Separator Relationship Specialty Start Date End Date Shruti Campos MD [address] [place] [phone] PCP - General Internal Medicine 05/11/23 documented as of this encounter
--- OUTSIDE RECORDS SUMMARY | 2025-03-02 17:13 | XMS_ITS | Encounter Summary ---
Author Organization [employer] Address [address] [facility] 7t [place] [address] Care Team Providers Care Beer Merchant Name Role Phone Shruti Campos MD Primary Care Pro vider Encounter Details Date Type Department Care Team (Latest Contact Info) Description 02/26/2025 Travel Social History Tobacco Use Types Packs/Day [...] Description 06/04/2025 1:15 PM EDT Office Visit [facility] [address] [place] [address] [phone] Shruti Campos MD [address] [place], [place] [phone] documented as of this encounter Goals Goal [...] documented as of this encounter Care Teams Beer Merchant Relationship Specialty Start Date End Date Shruti Campos MD [address] [place] [address] PCP - General Internal Medicine 05/11/23 documented as of this encounter
--- OUTSIDE RECORDS SUMMARY | 2025-03-02 17:13 | XMS_ITS | Encounter Summary ---
Author Organization [facility] Address [address] [place] [address] Care Team Providers Care Summer Child Caregiver Name Role Phone Paul Mix MD Primary Care Provider [phone] Lisette Murillo Primary Care Provider [phone] Encounter Details Date Type Department Care Team ([facility] st Contact Info) Description 04/30/2013 Orders Only [facility] Orthopedic Surgery [address] [phone] Mandeep Kirk MD [address] [place] [address] Social History Tobacco Use Types Packs/Day Years [...] leg documented in this encounter Care Teams Summer Child Caregiver Relationship Specialty Start Date End Date Paul Mix MD [facility] [address] [place] [address] PCP - General 05/25/09 11/19/14 Lisette Murillo [address] [address] PCP - General Internal Medicine 11/20/14 documented as of this encounter
--- OUTSIDE RECORDS SUMMARY | 2025-03-02 17:13 | XMS_ITS | Encounter Summary ---
Author Organization [employer] Address [address] [place] [address] 7 [place] [address] Care Team Providers Care Break Up Worker Name Role Phone Shruti Campos MD Primary Care Pro vider Reason for Visit * Reason Onset Date Comments Information/Instruction provided 02/26/2025 Encounter Details Date Type Department Care Team ([facility] Contact Info) Description 02/26/2025 Telephone [facility] MEDICINE [address] [place] [address] Shruti Campos MD [address] [place] [address] Information/Instruction provided Social History Tobacco Use Types Packs/Day Years [...] encounter Miscellaneous Notes * Telephone Encounter - Rosalind Miller MA - 02/26/2025 1:20 PM EST Condenser Setter gave the following information to Patient at the end of today's appointment.: Imaging: Ultrasound at [facility], centralized scheduling [phone] for Pelvics transvaginal and complete. Condenser Setter also did Cologuard demonstration and provided UPS machine operator picker number. documented in this encounter Plan of Treatment Upcoming Encounters Date Type Department Care Team (Late st Contact Info) Description 06/04/2025 1:15 PM EDT Office Visit [facility] MEDICINE [address] [place] [phone] Shruti Campos MD [address] [place] [address] documented as of this encounter Goals Goal [...] has chronic kidney disease Katty Hart MA Weekly blood pressure task Care Plan [...] documented as of this encounter Care Teams Break Up Worker Relationship Specialty Start Date End Date Shruti Campos MD [address] [place] [address] PCP - General Internal Medicine 05/11/23 documented as of this encounter
--- OUTSIDE RECORDS SUMMARY | 2025-03-02 17:13 | XMS_ITS | Encounter Summary ---
Author Organization [employer] Address [address] [facility] 7t [place] [address] Care Team Providers Care Analysis Director Name Role Phone Shruti Campos MD Primary Care Pro vider Reason for Visit * Reason Comments Med Refill Encounter Details Date Type Department Care Team ([facility] st Contact Info) Description 01/14/2024 Refill [facility] MEDICINE [address] [place], [place] [phone] Shruti Campos MD 230 [place] [address] Social History Tobacco Use Types Packs/Day Years [...] 1:15 PM EDT Office Visit [facility] MEDICINE [address] [place] [address] Shruti Campos MD [address] [place] [address] documented as of this encounter Visit Diagnoses Not on filedocumented in this encounter Additional Health Concerns Assessment Noted Time PHQ-9 Depression Total Score: 18 024 12:25 PM EST documented as of this encounter Care Teams Analysis Director Relationship Specialty Start Date End Date Shruti Campos MD [address] [place] [phone] PCP - General Internal Medicine 05/11/23 documented as of this encounter
--- OUTSIDE RECORDS SUMMARY | 2025-03-02 17:13 | XMS_ITS | Encounter Summary ---
Author Organization [employer] Address [address] [facility] 7t [place] [address] Care Team Providers Care Regulatory Affairs Assistant Name Role Phone Shruti Campos MD Primary Care Pro vider Reason for Visit * Reason Comments Med Refill Encounter Details Date Type Department Care Team ([facility] Contact Info) Description 10/06/2024 Refill [facility] MEDICINE 230 [place], [place] [phone] Shruti Campos MD 230 [place] [address] Social History Tobacco Use Types Packs/Day Years [...] Description 06/04/2025 1:15 PM EDT Office Visit [facility] MEDICINE [address] [place] [address] Shruti Campos MD [address] [place] [address] documented as of this encounter Visit Diagnoses Not on filedocumented in this encounter Additional Health Concerns Assessment Noted Time PHQ-9 Depression Total Score: 0 07/22/19 25 1:07 PM EDT documented as of this encounter Care Teams Regulatory Affairs Assistant Relationship Specialty Start Date End Date Shruti Campos MD [address] [place] [address] PCP - General Internal Medicine 05/11/23 documented as of this encounter
--- OUTSIDE RECORDS SUMMARY | 2025-03-02 17:13 | XMS_ITS | Encounter Summary ---
Author Organization [employer] Address [address] [place] [address] 7[address] [place] [address] Care Team Providers Care Director Of Infection Prevention Name Role Phone Shruti Campos MD Primary Care Pro vider Reason for Visit * Reason Onset Date Comments Nurse Triage 04/01/2024 Encounter Details Date Type Department Care Team ([facility] st Contact Info) Description 04/01/2024 Telephone [facility] MEDICINE [address] [place] [address] [phone] Shruti Campos MD [address] [place] [address] Nurse Triage Social History Tobacco Use Types [...] as prescribed at that time (only health services information specialist found on chart). Pt reports [...] to touch The caller accepted this outcome. [phone] documented in this encounter Plan of Treatment Upcoming Encounters Date Type Department Care Team (Late st Contact Info) Description 06/04/2025 1:15 PM EDT Office Visit [facility] MEDICINE [address] [place] [address] [phone] Shruti Campos MD [address] [place] [phone] documented as of this encounter Visit Diagnoses Not on filedocumented in this encounter Additional Health Concerns Assessment Noted Time PHQ-9 Depression Total Score: 18 024 12:25 PM EST documented as of this encounter Care Teams Director Of Infection Prevention Relationship Specialty Start Date End Date Shruti Campos MD [address] [place] [address] [phone] PCP - General Internal Medicine 05/11/23 documented as of this encounter
--- OUTSIDE RECORDS SUMMARY | 2025-03-02 17:13 | XMS_ITS | Encounter Summary ---
Author Organization [facility] Address [address] [place] [address] Care Team Providers Care Stitching Department Supervisor Name Role Phone Paul Mix MD Primary Care Provider [phone] Lisette Murillo Primary Care Provider [phone] Encounter Details Date Type Department Care Team ([facility] st Contact Info) Description 08/24/2014 Orders Only [facility] [address] [place] [phone] Estephania Skelton, KSENIA [address] [place] [address] Social History Tobacco Use Types Packs/Day Years [...] of this encounter Procedures * Due to [place] [employer] (1BOG) law, this organization might not be sharing [...] in this encounter Results * Due to [place] [employer] the [employer] (1BOG) law, this organization might not be sharing negative HIV tests. * (ABNORMAL) [facility] FPGS,HPV,CT/GC PANEL (08/24/2014 4:01 PM EDT) Clinical information NONE GIVEN [facility] Comment:{CLINICAL INFORMATIO N: {[id number]) Date last menstrual period [id number] [facility] Comment:{LMP: {[id number]) Date of previous PAP smear NONE GIVEN [facility] Comment:{PREV. PAP: {[id number]) Date of previous biopsy NONE GIVEN [facility] Comment:{PREV. BX: {[id number]) Specimen source (Cvx/Vag) Cervix, Endocervix [facility] Comment:{SOURCE: {[id number]) Statement of Adequacy (Cvx/Vag) Satisfactory for evaluation. Endocervical/hearn sformation zone component absent. [facility] Comment:{STATEMENT OF ADEQUA CY: {[id number]) General categories (Cvx/Vag) EPITHELIAL CELL ABNORMALITY(A) [facility] Comment:{GENERAL CATEGORIZAT ION: {[id number]) Cytology, Pap Smear Low Grade Squamous Intraepithelial Lesion (LSIL)(A) [facility] Comment:{INTERPRETATION/RESU LT: {[id number]) Cytology study comment (Cvx/Vag) This Pap test has been evaluated with computer assisted technology. [facility] Comment:{COMMENT: {[id number]) Rn Clinical Appeals (Cvx/Vag) MPG, CT(ASCP) [facility] Comment:{CREDIT UNDERWRITER: { [id number]) Pathologist (Cvx/Vag) Lorena Mcgrath M.D., Board Certified in Anatomic and Clinical Pathology (electronic signature) Consulting Pathologist [facility] [address] [place] [address] [facility] Comment:{PATHOLOGIST: {[id number]) HPV MRNA E6/E7 Detected(A) Not Detected [facility] Comment: {HPV mRNA E6/E7, [facility] VIAL {[id number]) This test was performed using the APTIMA HPV Assay ([employer] This assay detects E6/E7 viral messenger RNA (mRNA) from 14 high-risk HPV types (16,18,31,33,35,39,45,51,52,56,58,59,66,68). The analytical performance characteristics of this assay, when used to test [facility] specimens, have been determined by [facility] Chlamydia trachomatis rRNA NOT DETECTED NOT DETECTED [facility] Comment:{CHLAMYDIA TRACHOMAT IS RNA, TMA {[id number]) Neisseria Gonorrhoeae rRNA NOT DETECTED NOT DETECTED [facility] Comment:{NEISSERIA GONORRHOE AE RNA, TMA {[id number]) COMMENT SEE NOTE [facility] Comment: {COMMENT {[id number]) This test was performed using the APTIMA COMBO2 Assay ([employer] The analytical performance characteristics of this assay, when used to test [facility] specimens have been determined by [facility]. 08/24/2014 4:01 PM EDT 08/25/2014 1:12 AM EDT Narrative Resulting Agency Comment [id number] Estephania Skelton [facility] PATHOLOG[facility]-INTERFACED Aissatou l Result Performing Organization Address [facility] Co de Phone Number [facility] [address] [place] [address] * RPR, (RAPID PLASMIN REAGIN) WITH REFLEX TO FTA, DIAGNOSTIC (08/24/2014 1:40 PM EDT) Reagin Ab NON-REACT LEIGH ANN NON-REACT LEIGH ANN [facility] Comment:{RPR (DX) W/REFL TIT ER AND CONFIRMATORY TESTING {[id number]) 08/24/2014 1:40 PM EDT 08/25/2014 12:58 AM EDT Narrative Resulting Agency Comment [id number] Estephania Nafisa [facility] LABOR[facility] Final Res ult Performing Organization Address [facility] Co de Phone Number [facility] [address] [place] [phone] * HEPATITIS C ANTIBODY, SERUM (08/24/2014 1:40 PM EDT) Hepatitis C virus Ab NON-REACTI VE NON-REACT LEIGH ANN [facility] Comment:{HEPATITIS C ANTIBOD Y {[id number]) Hepatitis C virus Ab Signal/Cutoff 0.07 <1.00 [facility] Comment:{SIGNAL TO CUT-OFF { [id number]) 08/24/2014 1:40 PM EDT 08/25/2014 12:58 AM EDT Narrative Resulting Agency Comment [id number] [facility] LAB[facility] Final Res ult Performing Organization Address [facility] Co de Phone Number [facility] [address] [place] [address] documented in this encounter Visit Diagnoses Diagnosis Encounter for routine gynecological examination Routine gynecological examination documented in this encounter Care Teams Stitching Department Supervisor Relationship Specialty Start Date End Date Paul Mix MD [facility] [address] [place] [address] PCP - General 05/25/09 11/19/14 Lisette Murillo [facility] [address] [place] [address] PCP - General Internal Medicine 11/20/14 documented as of this encounter
--- OUTSIDE RECORDS SUMMARY | 2025-03-02 17:13 | XMS_ITS | Encounter Summary ---
Author Organization [employer] Address [address] [place] [address] 7t [place] [address] Care Team Providers Care Specialty Cook Name Role Phone Shruti Campos MD Primary Care Pro vider Reason for Visit * Reason Onset Date Comments Durable Medical Equipment 10/09/2023 Encounter Details Date Type Department Care Team ([facility] st Contact Info) Description 10/09/2023 Telephone [facility] MEDICINE [address] [place], [place] [phone] Shruti Campos MD [address] [place] [address] Durable Medical Equipment Social History Tobacco Use [...] Description 06/04/2025 1:15 PM EDT Office Visit [facility] MEDICINE [address] [place] [address] Shruti Campos MD [address] [place] [address] documented as of this encounter Visit Diagnoses Not on filedocumented in this encounter Additional Health Concerns Assessment Noted Time PHQ-9 Depression Total Score: 18 024 12:25 PM EST documented as of this encounter Care Teams Specialty Cook Relationship Specialty Start Date End Date Shruti Campos MD [address] [place] [phone] PCP - General Internal Medicine 05/11/23 documented as of this encounter
--- OUTSIDE RECORDS SUMMARY | 2025-03-02 17:14 | XMS_ITS | Encounter Summary ---
Author Organization [employer] Address [address] [place] [address] 7t [place] [address] Care Team Providers Care Fish Flipper Name Role Phone Shruti Campos MD Primary Care Pro vider Reason for Visit * Reason Onset Date Comments Med Refill 06/23/2024 Encounter Details Date Type Department Care Team ([facility] st Contact Info) Description 06/23/2024 Refill [facility] MEDICINE [address] [place] [address] Ryanne Vega MD [address] [place] [address] Social History Tobacco Use Types Packs/Day Years [...] 1:15 PM EDT Office Visit [facility] MEDICINE [address] [place] [address] [phone] Shruti Campos MD [address] [place] [address] documented as of this encounter Visit Diagnoses Not on filedocumented in this encounter Additional Health Concerns Assessment Noted Time PHQ-9 Depression Total Score: 18 024 12:25 PM EST documented as of this encounter Care Teams Fish Flipper Relationship Specialty Start Date End Date Shruti Campos MD [address] [place] [address] [phone] PCP - General Internal Medicine 05/11/23 documented as of this encounter
--- OUTSIDE RECORDS SUMMARY | 2025-03-02 17:14 | XMS_ITS | Encounter Summary ---
Author Organization [employer] Address [address] [place] [address] 7 [place] [address] Care Team Providers Care Rn Admit Name Role Phone Shruti Campos MD Primary Care Pro vider Reason for Visit * Reason Onset Date Comments Med Refill 07/23/2024 Encounter Details Date Type Department Care Team ([facility] st Contact Info) Description 07/23/2024 Refill [facility] MEDICINE [address] [place] [address] Shruti Campos MD [address] [place] [address] Social History Tobacco Use Types Packs/Day Years [...] Description 06/04/2025 1:15 PM EDT Office Visit [facility] MEDICINE [address] [place] [address] Shruti Campos MD [address] [place] [address] documented as of this encounter Visit Diagnoses Not on filedocumented in this encounter Additional Health Concerns Assessment Noted Time PHQ-9 Depression Total Score: 0 07/22/19 25 1:07 PM EDT documented as of this encounter Care Teams Rn Admit Relationship Specialty Start Date End Date Shruti Campos MD [address] [place] [phone] PCP - General Internal Medicine 05/11/23 documented as of this encounter
--- OUTSIDE RECORDS SUMMARY | 2025-03-02 17:14 | XMS_ITS | Encounter Summary ---
Author Organization [employer] Address [address] [place] [address] 7t [place] [address] Care Team Providers Care Costumed Character Entertainer Name Role Phone Shruti Campos MD Primary Care Pro vider Encounter Details Date Type Department Care Team ([facility] st Contact Info) Description 02/03/2025 Results Follow-Up [facility] MEDICINE [address] [place] [phone] Shruti Campos MD [address] [place] [address] ~PT, ~INR - ANTI COAG CLINIC, PROTHROMBIN [...] 2-3 -[place] [facility] documented in this encounter Plan of Treatment Upcoming Encounters Date Type Department Care Team (Late st Contact Info) Description 06/04/2025 1:15 PM EDT Office Visit [facility] MEDICINE [address] [place] [address] Shruti Campos MD [address] [place] [address] documented as of this encounter Goals Goal [...] documented as of this encounter Care Teams Costumed Character Entertainer Relationship Specialty Start Date End Date Shruti Campos MD [address] [place] [address] PCP - General Internal Medicine 05/11/23 documented as of this encounter
--- OUTSIDE RECORDS SUMMARY | 2025-03-02 17:14 | XMS_ITS | Encounter Summary ---
Author Organization [employer] Address [address] [place] [address] 7t [place] [address] Care Team Providers Care Associate Professor Of Engineering Name Role Phone Shruti Campos MD Primary Care Pro vider Reason for Visit * Reason Onset Date Comments Med Refill 02/18/2024 Encounter Details Date Type Department Care Team ([facility] st Contact Info) Description 02/18/2024 Refill [facility] MEDICINE [address] [place] [address] Shruti Campos MD [address] [place] [address] Social History Tobacco Use Types Packs/Day Years [...] Description 06/04/2025 1:15 PM EDT Office Visit [facility] MEDICINE [address] [place] [address] Shruti Campos MD [address] [place] [address] documented as of this encounter Visit Diagnoses Not on filedocumented in this encounter Additional Health Concerns Assessment Noted Time PHQ-9 Depression Total Score: 18 024 12:25 PM EST documented as of this encounter Care Teams Associate Professor Of Engineering Relationship Specialty Start Date End Date Shruti Campos MD [address] [place] [address] [phone] PCP - General Internal Medicine 05/11/23 documented as of this encounter
--- OUTSIDE RECORDS SUMMARY | 2025-03-02 17:14 | XMS_ITS | Encounter Summary ---
Author Organization [employer] Address [address] [place] [address] 7t [place] [address] Care Team Providers Care Chief Of Internal Medicine Name Role Phone Shruti Campos MD Primary Care Pro vider Encounter Details Date Type Department Care Team ([facility] st Contact Info) Description 02/20/2025 Results Follow-Up [facility] MEDICINE [address] [place] [address] Shruti Campos MD [address] [place] [address] ~PT, ~INR - ANTI COAG CLINIC, PROTHROMBIN [...] 2-3 -Pt follows at coumadin clinic at [facility] documented in this encounter Plan of Treatment Upcoming Encounters Date Type Department Care Team (Late st Contact Info) Description 06/04/2025 1:15 PM EDT Office Visit [facility] MEDICINE [address] [place] [address] Shruti Campos MD [address] [place] [address] documented as of this encounter Goals Goal [...] documented as of this encounter Care Teams Chief Of Internal Medicine Relationship Specialty Start Date End Date Shruti Campos MD [address] [place] [phone] PCP - General Internal Medicine 05/11/23 documented as of this encounter
--- OUTSIDE RECORDS SUMMARY | 2025-03-02 17:14 | XMS_ITS | Clinical Summary ---
Author Organization [employer] Address [address] [place] [address] [address] [place] [address] Care Team Providers Care Agent Licensing Clerk Name Role Phone Shruti Campos MD [...] per day. 1 each 12/27/19 24 Active warfarin (Coumadin) 2 MG tablet TAKE 1 TO 3 TABLETS BY MOUTH DAILY DIRECTED BY COUMADIN CLINIC. 270 tablet 2 04/21/19 25 Active Linzess 145 MCG capsule TAKE 1 CAPSULE (145 MCG) BY MOUTH BEFORE BREAKFAST. DO NOT CRUSH OR CHEW. 30 capsule 06/11/19 25 Active glucose blood (FREESTYLE LITE) test strip Check CBG daily 60 each 07/22/19 25 Active FreeStyle lancets 1 each by Other route Once per day. TEST BLOOD SUGAR ONCE A DAY 100 each 07/23/19 25 Active Blood Glucose Monitoring Suppl (FreeStyle [facility] [place]) w/Device kitIndications :Type 2 diabetes mellitus with microalbuminur ia, without long-term current use of insulin ([facility]) Check glucose daily 1 kit 07/26/19 25 Active Ventolin HFA 108 (90 Base) MCG/ACT inhaler INHALE 2 PUFFS EVERY 6 HOURS IF NEEDED FOR WHEEZING. 18 g 2 08/12/19 25 Active losartan (Cozaar) 25 MG tablet TAKE 1 TABLET BY MOUTH EVERY DAY 90 tablet 1 09/16/19 25 Active dilTIAZem CD (Cardizem CD) 120 MG 24 hr capsule TAKE 1 CAPSULE BY MOUTH EVERY DAY 90 capsule 1 10/21/19 25 Active docusate sodium (Colace) 100 MG capsule TAKE 1 CAPSULE (100 MG) BY MOUTH ONCE PER DAY. 90 capsule 1 12/05/19 25 Active metoprolol succinate XL (Toprol-XL) 25 MG 24 hr tablet TAKE 2 TABLETS (50 MG TOTAL) BY MOUTH ONCE A DAY AND 1 TABLET (25 MG TOTAL) EVERY EVENING. 270 tablet 1 12/17/19 25 Active loratadine (Claritin) 10 MG tablet TAKE 1 TABLET BY MOUTH EVERY DAY 90 tablet 1 12/17/19 25 Active buPROPion SR (Wellbutrin SR) 150 MG 12 hr tablet Take 1 tablet by mouth if needed at bedtime for anxiety. 11/13/19 25 Active omeprazole (PriLOSEC) [address] capsule TAKE 1 CAPSULE BY MOUTH EVERY DAY 90 capsule 1 01/16/20 25 Active cloNIDine (Catapres) 0.2 MG tablet TAKE 1 TABLET BY MOUTH TWICE A DAY 180 tablet 1 02/10/20 25 Active diazePAM (Valium) 2 MG tabletIndicati ons:HAMLET (generalized anxiety disorder) Take 1 tablet (2 mg) by mouth if needed each day for anxiety. 2 tablet 02/27/20 25 Active bisacodyl (Bisacodyl EC) 5 MG EC tablet Take 1 tablet (5 mg) by mouth if needed each day for constipation . DO NOT CRUSH CHEW OR SPLIT 90 tablet 1 02/27/20 25 Active atorvastatin (Lipitor) 80 MG tablet Take 80 mg by mouth Once per day. Active ezetimibe (Zetia) 10 MG tablet Take 10 mg by mouth Once per day. Active Tirzepatide (Mounjaro) 12.5 MG/0.5ML solution auto-injector Inject 12.5 mg under the skin 1 (one) time per week. 2 mL 02/27/20 25 026 Active ferrous gluconate (Fergon) 324 (38 Fe) MG tablet Take 1 tablet (324 mg) by mouth at noon and 1 tablet (324 mg) in the evening. 180 tablet 02/27/20 25 Active Ascorbic Acid (vitamin C) 250 MG tablet Take 1 tablet (250 mg) by mouth Once per day. 90 tablet 02/27/20 25 026 Active cholecalcifero l (Vitamin D-3) 125 MCG (5000 UT) capsule Take 1 capsule (125 mcg) by mouth Once per day. 90 capsule 1 02/27/20 25 Active cholecalcifero l (Vitamin D-3) 50 MCG (2000 UT) capsule TAKE 1 CAPSULE BY MOUTH EVERY DAY 90 capsule 1 01/15/20 24 025 Discontinued(Ot her) GaviLAX 17 GM/SCOOP powder TAKE 17 G BY MOUTH ONCE PER DAY 510 g 2 02/22/20 24 025 Discontinued(Ot her) diazePAM (Valium) 2 MG tabletIndicati ons:Anxiety Take 1 tablet (2 mg) by mouth 1 (one) time for 1 dose. 1 tablet 04/10/19 025 Discontinued(Ot her) cloNIDine (Catapres) 0.2 MG tablet TAKE 1 TABLET BY MOUTH TWICE A DAY 180 tablet 1 08/15/19 25 025 Discontinued bisacodyl (Bisacodyl EC) 5 MG EC tablet Take 1 tablet (5 mg) by mouth if needed each day for constipation . DO NOT CRUSH CHEW OR SPLIT 90 tablet 09/06/19 025 Discontinued(Re order (will not trigger notification to Pharmacy)) ferrous gluconate (Fergon) 324 (38 Fe) MG tablet Take 1 tablet (324 mg) by mouth with breakfast. 90 tablet 12/19/19 25 025 Discontinued(Re order (will not trigger notification to Pharmacy)) atorvastatin (Lipitor) 10 MG tablet TAKE 1 TABLET BY MOUTH EVERY DAY 90 tablet 1 12/20/19 25 025 Discontinued(Ot her) Tirzepatide (Mounjaro) 10 MG/0.5ML solution auto-injectorI ndications:Mor bid obesity (CMS/HCC) ([facility]),Type 2 diabetes mellitus with microalbuminur ia, without long-term current use of insulin ([facility]) INJECT 10 MG UNDER THE SKIN 1 (ONE) TIME PER WEEK. 0.5 mL 02/01/20 25 025 Discontinued Active Problems Problem Noted Date Diagnosed Date Transaminitis 02/26/2025 Skin lesion 11/22/2023 Constipation 11/22/2023 Urinary incontinence [...] intervention , 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 Follow up with MONITORING ANALYST in 2-3 weeks to discuss management of [...] Encounters Date Type Department Care Team Description 03/02/2025 Results Follow-Up [facility] [address] [place] [phone] Shruti Campos MD ~PT, ~INR - ANTI COAG CLINIC, PROTHROMBIN TIME WHOLE BLD POC 03/02/2025 Orders Only GENERIC EXTERNAL DATA DEPARTMENT Provider, Generic External Data 02/26/2025 10:45 AM EST Office Visit [address] [address] Shruti Campos MD HAMLET (generalized anxiety disorder) (Primary Dx); Screening for colon cancer; Colon cancer screening; Cervical radiculopathy; Excessive bleeding in premenopausal period; Iron deficiency anemia, unspecified iron deficiency anemia type; Hyperlipidemia, unspecified hyperlipidemia type; Paroxysmal atrial fibrillation (CMS/HCC) (HCC); Essential hypertension; intermodal 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 service (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; Morbid obesity (CMS/HCC) (HCC); Type 2 diabetes mellitus with microalbuminuria, without long-term current use of insulin (HCC); Constipation, unspecified constipation type; Health care maintenance; Major depressive disorder, recurrent, moderate (CMS/HCC) (HCC); Post traumatic stress disorder (PTSD); ANGELA (obstructive sleep apnea); Chronic pain syndrome; Transaminitis 02/26/[address] [address] Shruti Campos MD Information/Instructio n provided 02/26/2025 Travel 02/25/[address] [address] Shruti Campos MD chart prep 02/23/2025 Orders Only GENERIC EXTERNAL DATA DEPARTMENT Provider, Generic External Data 02/23/2025 Results Follow-Up [address] [address] Shruti Campos MD CBC auto differential 02/20/2025 Results Follow-Up [address] [address] Shruti Campos MD ~PT, ~INR - ANTI COAG CLINIC, PROTHROMBIN TIME WHOLE BLD POC 02/20/2025 Telephone [facility] [address] [place] [phone] Shruti Campos MD lab results/ Coumadin clinic 02/20/2025 Orders Only GENERIC EXTERNAL DATA DEPARTMENT Provider, Generic External Data 02/18/2025 Patient Outreach [facility] [place] [address] Shruti Campos MD Pre-visit Planning (Pre-visit planning - LVM ) 02/05/2025 Refill [facility] [place] [address] Rosana Jaramillo MD 02/03/2025 Results Follow-Up [facility] [place] [address] Shruti Campos MD ~PT, ~INR - ANTI COAG CLINIC, PROTHROMBIN TIME WHOLE BLD POC 02/02/2025 Orders Only GENERIC EXTERNAL DATA DEPARTMENT Provider, Generic External Data 01/29/2025 Refill [facility] [place] [address] Shruti Campos MD Morbid obesity (CMS/HCC) (HCC); Type 2 diabetes mellitus with microalbuminuria, without long-term current use of insulin (HCC) 01/21/2025 Orders Only GENERIC EXTERNAL DATA DEPARTMENT Provider, Generic External Data 01/15/2025 Refill [facility] [place] [place] [address] Shruti Campos MD 01/09/2025 Telephone [facility] [place] [place] [address] Shruti Campos MD Lab Orders 12/19/2024 Refill [facility] [place] [address] Shruti Campos MD 12/18/2024 1:30 PM EDT Office Visit [facility] [place] [address] Shruti Campos MD Screening mammogram for breast [...] (generalized anxiety disorder) 12/18/2024 Travel 12/17/2024 Telephone [facility] [address] [place] [phone] Shruti Campos MD chart prep 12/16/2024 Refill [facility] [address] [place] [phone] Shruti Campos MD 12/11/2024 Patient Outreach [facility] [address] [place] [address] Shruti Capmos MD Pre-visit Planning (SDOH was already completed ) 12/05/2024 Results Follow-Up [facility] [address] [place] [address] Shruti Campos MD ~PT, ~INR - ANTI COAG CLINIC, PROTHROMBIN TIME WHOLE BLD POC 12/05/2024 Orders Only GENERIC EXTERNAL DATA DEPARTMENT Provider, Generic External Data 12/04/2024 Refill [facility] [address] [place] [address] Shruti Campos MD from Last 3 Months [...] Mass Index 48.75 02/26/2025 11:09 AM EST Plan of Treatment Upcoming Encounters Date Type Department Care Team (Late st Contact Info) Description 06/04/2025 1:15 PM EDT Office Visit [facility] [address] [place], [place] [phone] Shruti Campos MD [address] [place], [place] [phone] Health Maintenance Due Date Last Done Comments CT Colonography 1979 Colonoscopy 1979 Colorectal Cancer Screening 1979 FIT DNA/Cologuard 1979 FIT 1979 FOBT 1979 Sigmoidoscopy 1979 Diabetes: Foot Exam 11/07/1989 Family Planning (PISQ) 11/07/1994 HPV Vaccines (1 - 3-dose series) 11/07/1994 COVID-19 Vaccine ( - 2024-2 6 season) [...] Mammogram 08/09/2025 08/10/2023 Eye Exam 08/12/2025 08/13/2023 Diabetes: Hemoglobin A1C 08/24/2025 025, 04/07/2024, 06/20/2023 Lipid Panel 02/23/2026 02/23/2025, 02/23/2025 DTaP/Tdap/Td Vaccines (3 - T d or Tdap) 04/16/2027 04/16/2017, 08/29/2011 Zoster Vaccines (1 of 2) 11/07/2029 RSV Patients and Patients Aged 60 years or older (1 - 1-dose 75+ series) 11/07/2054 HIV Screening Completed 02/23/2025, 06/20/2023 Hepatitis C Screening Completed 02/23/2025 , 06/20/2023 HIB Vaccines Aged Out No longer [...] blood pressure task No Madelyn Barrera, MANUEL Weekly blood pressure task Care Plan Weekly blood pressure task No Madelyn BarreraMANUEL Patient has chronic kidney disease Care Plan [...] COAG CLINIC Routine 03/02/2025 1:55 PM EST TSH W/REFLEX TO FT4 Routine 02/23/2025 1 1:41 AM EST LIPID PANEL, STANDARD Routine 02/23/2025 11:41 AM EST VITAMIN D,25-OH,TOTAL,IA Routine 02/23/2025 11:41 AM EST Health care maintenance VITAMIN B12/FOLATE, SERUM PANEL Routine 02/23/2025 11:41 AM EST Health care maintenance TSH W/REFLEX TO FT4 Routine 02/23/2025 1 1:41 AM EST Health care maintenance SYPHILIS SCREEN Routine 02/23/2025 11:41 AM EST Health care maintenance LIPID PANEL, STANDARD Routine 02/23/2025 11:41 AM EST Health care maintenance HIV 1/2 ANTIGEN/ANTIBODY, FOURTH GENERATION W/RFL Routine 02/23/2025 11:41 AM EST Health care maintenance HEPATITIS C AB W/REFL TO HCV RNA, QN, PCR Routine 02/23/2025 11:41 AM EST Health care maintenance HEPATITIS B SURFACE ANTIGEN, EIA Routine 02/23/2025 11:41 AM EST Health care maintenance HEMOGLOBIN A1C Routine 02/23/2025 11:41 AM EST Health care maintenance COMPREHENSIVE METABOLIC PANEL Routine 02/23/2025 11:41 AM EST Health care maintenance CBC WITH AUTO DIFFERENTIAL Routine 02/23/2025 11:41 AM EST Health care maintenance ALBUMIN, RANDOM URINE W/CREATININE Routine 02/23/2025 11:41 AM EST Health care maintenance IRON AND TOTAL IRON BINDING CAPACITY Routine 02/23/2025 11:41 AM EST Health care maintenance FERRITIN Routine 02/23/2025 11:41 AM EST Health care maintenance CHLAMYDIA/TRICHOMONAS/ NEISSERIA GONORRHOEAE, PCR, URINE Routine 02/23/2025 11:41 AM EST Health care maintenance PROTHROMBIN TIME WHOLE BLD POC Routine 02/20/2025 [...] COAG CLINIC Routine 12/05/2024 1:43 PM EDT THINPREP IMAGING PAP AND HPV MRNA E6/E7 Routine 12/04/2023 2:30 PM EDT AMB REFERRAL TO OPHTHALMOLOGY Routine 08/13/2023 Type 2 diabetes mellitus with microalbuminuria, without long-term current use of insulin ([facility]/HCC) BI MAMMOGRAM SCREENING TOMOSYNTHESIS BILATERAL Routine 08/10/2023 11:20 AM EDT Breast cancer screening by mammogram from Last 3 Months or Most Recently Relevant to Health Maintenance Results * (ABNORMAL) PROTHROMBIN TIME WHOLE BLD POC (03/02/2025 1:55 PM EST) Only the most recent of5 resultswithin the time period is included. Protime 18.8(H) 11.1 - 13.5 sec [facility] 03/02/2025 1:55 PM EST 03/02/2025 1:58 PM EST us Generic External Data Provider LAB BLOOD ORDERAB LES Final Result Performing Organization Address City/State/[facility] Co de Phone Number [facility] [address] [place] [phone] * (ABNORMAL) ~PT, ~INR - ANTI COAG CLINIC (03/02/2025 1:55 PM EST) Only the most recent of5 resultswithin the time period is included. Prothrombin Time INR 1.6(H) 0.9 - 1.1 [facility] Comment:METER #: [id number] TERNATIONAL NORMALIZED RATIO (INR) REFERENCE RANGES Reference [...] Result [facility] [address] [place] [phone] * Chlamydia/Trichomonas/Neisseria gonorrhoeae, PCR, Urine (02/23/2025 11:41 AM EST) CT PCR, Urine NOT DETECTED Not Detect. [facility] Comment:A not detected test result does not exclude the possibilityof infection because test results can be affected byimproper specimen collection, concurrent antibiotic therapy,or the number of organisms in the specimen which may bebelow the sensitivity of the test. As with many diagnostictests, results from the Xpert CT/NG assay should beinterpreted in conjunction with other laboratory andclinical data available to the clinician.The Xpert CT/NG assay should not be used for the evaluationof suspected sexual abuse or for other medico-legalindications. Additional testing is recommended in anycircumstance when false positive or false negative resultscould lead to adverse medical, social or psychologicalconsequences. NG PCR, Urine NOT DETECTED Not Detect. [facility] Comment:A not detected test result does not exclude the possibilityof infection because test results can be affected byimproper specimen collection, concurrent antibiotic therapy,or the number of organisms in the specimen which may bebelow the sensitivity of the test. As with many diagnostictests, results from the Xpert CT/NG assay should beinterpreted in conjunction with other laboratory andclinical data available to the clinician.The Xpert CT/NG assay should not be used for the evaluationof suspected sexual abuse or for other medico-legalindications. Additional testing is recommended in anycircumstance when false positive or false negative resultscould lead to adverse medical, social or psychologicalconsequences. Urine (Urine, Random) 02/23/2025 11:41 AM EST 02/23/2025 1:27 PM EST Shruti Handy MD LAB URINE ORDERAB LES Final Result Performing Organization Address City/[facility]/ZIP Co de Phone Number [facility] [address] [place] [phone] * Syphilis Screen (02/23/2025 11:41 AM EST) Syphilis Screen Nonreactive Nonreactive [facility] Blood 02/23/2025 11:4 1 AM EST 02/23/2025 1:40 PM EST Shruti Handy MD LAB BLOOD ORDERAB LES Final Result Performing Organization Address [facility] Co de Phone Number [facility] [address] [place] [phone] * (ABNORMAL) Vitamin D, 25-Hydroxy, Total, Immunoassay (02/23/2025 11:41 AM EST) Vitamin D 25-OH Total 27.0(L) >30 ng/mL [facility] Comment: Health Based Reference Values*< 20 ng/mL Lfvjlxzys09-26 ng/mL Insufficient> 30 ng/mL Sufficient*Colleen DILLON. N Engl J Med. 2007;357:266-280There is no well-established upper level of normal vitamin Dlevels. Some laboratories use 50 ng/mL as an upper limit ofnormal. However, toxicity is patient-dependent and may occurat any level. Careful correlation with the patient'spresentation is necessary and, if there is concern forvitamin D toxicity, treatment should be consideredirrespective of the serum level.Care must be taken in interpreting Vitamin D results fromdifferent laboratories and methodologies. Published datademonstrated that results from patients undergoinghemodialysis may show a negative bias when tested withvarious automated 25-OH vitamin D assays when compared toLC-MS/MS.When testing samples from patients whose predominant form ofVitamin D is Vitamin D2, such as patients receiving VitaminD2 supplementation, results that are subtherapeutic shouldbe confirmed with another method such as LC-MS/MS. Blood Venous blood specimen / Unknown 02/23/2025 11:41 AM EST 02/23/2025 1:40 PM EST Shruti Handy MD LAB BLOOD ORDERAB LES Final Result [facility] [address] [place] [phone] * Vitamin B12 (Cobalamin) and Folate Panel, Serum (02/23/2025 11:41 AM EST) Vitamin B12 362 200 - 900 pg/mL [facility] Comment:NORMAL 200-900 PG/ML INDETERMINATE 160-199 PG/ML DEFICIENT < 160 PG/ML Folate 6.3 > or = 4.0 ng/mL [facility] Comment:Reference Values:> o r = 4.0 ng/mL< 4.0 ng/mL suggests folate deficiency Methotrexate, aminopterin and folinic acid(leucovorin) are chemotherapeutic agents whose molecularstructures are similar to folate; therefore, the Architectfolate assay cannot be used for patients using these drugs. Blood 02/23/2025 11:4 1 AM EST 02/23/2025 1:40 PM EST us Shruti Handy MD LAB BLOOD ORDERAB LES Final Result Performing Organization Address [facility] Co de Phone Number [facility] [address] [place] [phone] * TSH with Reflex to Free T4 (02/23/2025 11:41 AM EST) Only the most recent of2 resultswithin the time period is included. TSH reflex Free T4 2.05 0.32 - 4.0 uIU/mL [facility] 02/23/2025 11:4 1 AM EST 02/23/2025 1:40 PM EST us Generic External Data Provider LAB BLOOD ORDERAB LES Final Result [facility] [address] [place] [phone] * (ABNORMAL) Albumin, Random Urine W/Creatinine (02/23/2025 11:41 AM EST) Pathologist [facility] Creatinine, Urine 200.93 mg/dL [facility] Microalbumin Urine 73.0 mg/L [facility] Microalbum Creatinine Ratio Ur 36.3(H) <30 ug/mg cr [facility] Comment:Albumin/Creatinine R atio Reference Ranges: Normal: < 30 ug/mg creatinine Microalbuminuria: 30 - 300 ug/mg creatinineClinical Albuminuria: > 300 ug/mg creatinine Urine (Urine, Random) 02/23/2025 11:41 AM EST 02/23/2025 1:27 PM EST Shruti Handy MD LAB URINE ORDERAB LES Final Result Performing Organization Address [facility] de Phone Number [facility] [address] [place] [phone] * (ABNORMAL) CBC auto differential (02/23/2025 11:41 AM EST) [facility] White Blood Count 9.2 4.8 - 10.8 X10*3/uL [facility] Red Blood Count 4.53 4.20 - 5.50 X10*6/uL [facility] Hemoglobin 10.2(L) 12.0 - 16.0 g/dl [facility] Hematocrit 34.0(L) 37.0 - 47.0 % [facility] Mean Corpuscular Volume 75.1(L) 80.0 - 98.0 fL [facility] Mean Corpuscular Hemoglobin 22.5(L) 27.0 - 33.0 pg [facility] Mean Corpuscular HGB Conc 30.0(L) 31.0 - 35.0 g/dl [facility] Red Cell Distribution Width 16.1(H) 11.0 - 16.0 % [facility] Platelet Count 331 160 - 400 X10*3/uL [facility] Mean Platelet Volume 11.8 9.4 - 12.3 fL [facility] Neutrophils Percent Auto 65.1 45 - 73 % [facility] Imm Gran Pct Auto 0.3 0.0 - 0.4 % [facility] Lymphocytes Percent Auto 23.6 20 - 40 % [facility] Monocytes Percent Auto 5.8 2 - 11 % [facility] Eosinophils Percent Auto 4.7(H) 0 - 4 % [facility] Basophils Percent Auto 0.5 0 - 2 % [facility] NRBC Pct Auto 0.0 0.0 - 0.2 /100WBC [facility] Neutrophils Absolute Auto 6.0 2.0 - 8.3 x10*3/uL [facility] Imm Gran Abs Auto 0.03 0.00 - 0.03 X10*3/uL [facility] Lymphocytes Absolute Auto 2.2 1.2 - 4.9 X10*3/uL [facility] Monocytes Absolute Auto 0.5 0.1 - 1.2 X10*3/uL [facility] Eosinophils Absolute Auto 0.4 0.0 - 0.4 X10*3/uL [facility] Basophils Absolute Auto 0.1 0.0 - 0.2 X10*3/uL [facility] NRBC Abs Auto 0.000 0.0 - 0.012 X10*3/uL [facility] Blood Venous blood specimen / Unknown 02/23/2025 11:41 AM EST 02/23/2025 1:40 PM EST us Shruti Handy MD LAB BLOOD ORDERAB LES Final Result [facility] [address] [place] [phone] * Hepatitis C Antibody with Reflex to HCV, RNA, Quantitative, Real-Time PCR (02/23/2025 11:41 AM EST) Hepatitis C Antibody Nonreactive Nonreactive [facility] Comment:Antibodies to HCV no t detected; does not exclude early acuteHCV infection. Blood Venous blood specimen / Unknown 02/23/2025 11:41 AM EST 02/23/2025 1:40 PM EST Shruti Handy MD LAB BLOOD ORDERAB LES Final Result Performing Organization Address [facility]/ZIP Co de Phone Number [facility] [address] [place] [phone] * (ABNORMAL) Iron And Total Iron Binding Capacity (02/23/2025 11:41 AM EST) Iron 30 30 - 160 mcg/dL [facility] Total Iron Binding Capacity 366 228 - 428 mcg/dL [facility] Percent Iron Saturation 8(L) 15 - 50 % [facility] Unsaturated Iron Binding 336 ug/dL [facility] Blood Venous blood specimen / Unknown 02/23/2025 11:41 AM EST 02/23/2025 1:40 PM EST Shruti Handy MD LAB BLOOD ORDERAB LES Final Result Performing Organization Address [facility] de Phone Number [facility] [address] [place] [phone] * Hepatitis B surface antigen, EIA (02/23/2025 11:41 AM EST) Pathologist [facility] Hepatitis B Surface Ag Negative Negative [facility] Blood Venous blood specimen / Unknown 02/23/2025 11:41 AM EST 02/23/2025 1:40 PM EST Shruti Handy MD LAB BLOOD ORDERAB LES Final Result Performing Organization Address [facility] Co de Phone Number [facility] [address] [place] [phone] * HIV-1/2 Antigen and Antibodies, Fourth Generation, with Reflexes (02/23/2025 11:41 AM EST) HIV AB/AG Nonreactive Nonreactive [facility] Comment:HIV-1 p24 Ag and/or HIV-1/HIV-2 Ab not detected.A test result that is nonreactive does not exclude thepossibility of exposure to or infection with HIV-1 and/orHIV-2. Nonreactive results in this assay for individualswith prior exposure to HIV-1 and/or HIV-2 may be due toantigen and antibody levels that are below the limit ofdetection of this assay.The [employer] HIV Ag/Ab Combo assay result andsupplemental assay results should be interpreted inconjunction with the patient's clinical presentation,history and other laboratory results. If the results areinconsistent with clinical evidence, additional testing issuggested to confirm the result. Blood Venous blood specimen / Unknown 02/23/2025 11:41 AM EST 02/23/2025 1:40 PM EST us Shruti Handy MD LAB BLOOD ORDERAB LES Final Result [facility] [address] [place] [phone] * (ABNORMAL) Hemoglobin A1c (02/23/2025 11:41 AM EST) Hemoglobin A1c 6.4(H) <6.0 % [facility] Comment:Hemoglobin A1C Refer ence Range Adults: 4.8 - 6.0 % Non diabetic: < 6.0 % Goal: < 7.0 %Additional Action Suggested: > 8.0 %Note: Hemoglobin A1c results are invalid for patients with abnormal amounts of HbF. Blood transfusions may impact the HbA1c concentration in the patient sample. Estimated Average Glucose 137 mg/dL [facility] Comment:eAG = Estimated ave rage glucose which is %A1C expressed asaverage glucose, using the formula of the Q6C-JgihbtmLcexhpy Glucose study (ADAG), Diabetes Care, Vol.31,#8,Oct. 2007 Blood Venous blood specimen / Unknown 02/23/2025 11:41 AM EST 02/23/2025 1:40 PM EST us Shruti Handy MD LAB BLOOD ORDERAB LES Final Result [facility] [address] [place] [phone] * Ferritin (02/23/2025 11:41 AM EST) Ferritin 13 10 - 250 ng/mL [facility] Blood Venous blood specimen / Unknown 02/23/2025 11:41 AM EST 02/23/2025 1:40 PM EST us Shruti Handy MD LAB BLOOD ORDERAB LES Final Result Performing Organization Address City/[facility]/ZIP Co de Phone Number [facility] [address] [place] [phone] * (ABNORMAL) Lipid Panel, Standard (02/23/2025 11:41 AM EST) Only the most recent of2 resultswithin the time period is included. Pathologist [facility] Triglycerides 117 <150 mg/dL [facility] Comment:Desirable Triglyceri de: less than 150 mg/dLBorderline High Triglyceride 150-199 mg/dLHigh Triglyceride: 200-499 mg/dLVery High Triglyceride: greater than or equal to 5OO mg/dL Cholesterol 204(H) <200 mg/dL [facility] Comment:Desirable Cholestero l: less than 200 mg/dLBorderline High Cholesterol: 200-239 mg/dLHigh Cholesterol: greater than 239 mg/dL LDL Cholesterol Calculated 132(H) <100 mg/dL [facility] Comment:Desirable LDL: less than 100 mg/dLNear Optimal/Above Optimal LDL: 110- 129 mg/dLBorderline High LDL: 130-159 mg/dLHigh LDL: 160-189 mg/dLVery High LDL: greater than or equal to 190 mg/dL HDL Cholesterol 49 >40 mg/dL [facility] Comment:Desirable HDL: great er than 40 mg/dL Note: This HDL assay may give artificially low results in patients with liver disease. 02/23/2025 11:4 1 AM EST 02/23/2025 1:40 PM EST us Generic External Data Provider LAB BLOOD ORDERAB LES Final Result [facility] [address] [place] [phone] * (ABNORMAL) Comprehensive Metabolic Panel (02/23/2025 11:41 AM EST) Sodium 138 135 - 145 mmol/L [facility] Potassium 4.6 3.3 - 5.1 mmol/L [facility] Chloride 108 96 - 108 mmol/L [facility] Carbon Dioxide 24 22 - 29 mmol/L [facility] Anion Gap 11(L) 12 - 20 [facility] Urea Nitrogen (BUN) 21(H) 9 - 16 mg/dL [facility] Creatinine, Serum 0.95 0.5 - 1.4 mg/dL [facility] Estimated Glomerular Filt Rate >60 [facility] Comment:Chronic Kidney Disea se: Estimated GFR < 60 mL/min/1.18p1Gdpvwg Kidney Disease: Estimated GFR < 15 mL/min/1.73m2 Glucose 105 60 - 115 mg/dL [facility] Calcium 9.2 8.4 - 10.2 mg/dL [facility] Bilirubin, Total 0.2 0.0 - 1.0 mg/dL [facility] Aspartate Amino Transferase 50(H) 5 - 31 U/L [facility] Alanine Aminotransferase 55(H) 0 - 31 U/L [facility] Total Protein 7.9 6.5 - 8.0 g/dL [facility] Albumin Level 4.0 3.5 - 5.0 g/dL [facility] Alkaline Phosphatase 64 39 - 117 U/L [facility] Blood Venous blood specimen / Unknown 02/23/2025 11:41 AM EST 02/23/2025 1:40 PM EST us Shruti Handy MD LAB BLOOD ORDERAB LES Final Result [facility] [address] [place] [phone] * Thin[employer] Imaging Pap and HPV mRNA E6/E7 (12/04/2023 2:30 PM EDT) HPV nRNA E6/E7 Not Detected Not Detected [facility] Comment:Methodology: Transcr iption-Mediated AmplificationThis assay detects E6/E7 viral messenger RNA (mRNA) from 14high-risk HPV types (16,18,31,33,35,39,45,51,52,56,58,59,66,68).Cervical sources are required for HPV testing.If a vaginal source from a patient who has had atotal hysterectomy with removal of cervix wassubmitted, please contact the testing laboratoryfor alternative testing options.For additional information, please refer [email or web address]/faq/AYP623f5(This link if provided for information/educational purposes only.)THIS TEST WAS PERFORMED AT:[employer] [place] [phone] GONZALEZ MD SOURCE: SEE NOTE [facility] Comment:None given Report Status: [facility] Clinical Information: SEE NOTE [facility] Comment:None given LMP: SEE NOTE [facility] Comment:NONE GIVEN Prev. PAP: SEE NOTE [facility] Comment:NONE GIVEN Prev. BX: SEE NOTE [facility] Comment:NONE GIVEN Statement Of Adequacy: SEE NOTE [facility] Comment:Satisfactory for laureano luation.Endocervical/transformation zone component absent. General Categorization: [facility] Interpretation/Result: SEE NOTE [facility] Comment:Cytology Results: Ne gative for intraepitheliallesion or malignancy. Cytology Comment SEE NOTE [facility] Comment:This Pap test has be en evaluated with computerassisted technology. Agent Licensing Clerk: SEE NOTE [facility] Comment:DCR, CT(ASCP)CT scre ening location: [place] [address] Review Agent Licensing Clerk: [facility] Pathologist [facility] PAP Infection SEE NOTE [facility] Comment:Shift in vaginal amrik ra suggestive of bacterialvaginosis. See Note SEE NOTE [facility] Comment:EXPLANATORY NOTE:The Pap is a screening test for cervical cancer. It isnot a diagnostic test and is subject to false negativeand false positive results. It is most reliable when asatisfactory sample, regularly obtained, is submittedwith relevant clinical findings and history, and whenthe Pap result is evaluated along with historic andcurrent clinical information. 12/04/2023 2:30 PM EDT 12/04/2023 6:04 PM EDT Narrative [facility] - 12/07/2023 12:53 PM EDT SEE SCANNED RESULTS IN EMR us Pam MCCORMACK LAB PATHOLOGY ORDERABLES Final Result [facility] [address] [place] [phone] * Referral to Ophthalmology (08/13/2023) us Shruti Handy MD OUTPATIENT REFERR AL ORDERABLES Final Result * BI Mammogram Screening Tomosynthesis Bilateral (08/10/2023 11:20 AM EDT) Anatomical Region Laterality Modality Breast Bilateral Mammography 08/10/2023 11:2 0 AM EDT Narrative 08/28/2023 1:48 PM EDT [facility] [address] [place] [id number] Mammography Report Signed Patient: Bria Nevarez MR#: [id number] : 1980 Acct:[id number] Age/Sex: 42 / F ADM Date: 08/10/23 Loc: [email or web address].[email or web address] Attending Dr: Shruti Mccain MD Ordering Physician: Shruti Campos MD sults: 1Negative Date of Service: 08/10/23 Follow Up: 1 Year From Orig inal Mammogram Procedure(s): MM tomosynthesis screening BI Accession Number(s): [id number] cc: Shruti Campos MD EXAMINATION: MM SCREENING [...] in OV> 08/28/23 1344 DD/ 1120 TD/TT: Shelter Monitor: Procedure Note Donotuseinterpreter, Image - 08/28/2023 [place] [facility]'s [address] [place] [address] Mammography Report Signed Patient: Bria Nevarez [facility]#: [id number] : 1980Acct:[id number] Age/Sex: 42 / FADM Date: 08/10/23 Loc: YARITZA Attending Dr: Shruti Mccain MD Ordering Physician: Shruti Campos sults: 1Negative Date of Service: 08/10/23Follow Up: 1 Year From Orig inal Mammogram Procedure(s): MM tomosynthesis screening BI Accession Number(s): [id number] cc: Shruti Campos MD EXAMINATION: MM SCREENING [...] in OV> 08/28/23 1344 DD/ 1120 TD/TT: Shelter Monitor: Shruti Handy MD IMG BI PROCEDURES Final Result from Last 3 Months or Most Recently [...] 03/02/2025 Patient has chronic kidney disease 03/02/2025 Insurance [facility] C3 Care Teams Agent Licensing Clerk Relationship Specialty Start Date End Date Shruti Campos MD [address] [place] [address] [phone] PCP - General Internal Medicine 05/11/23
--- OUTSIDE RECORDS SUMMARY | 2025-03-02 17:14 | XMS_ITS | Encounter Summary ---
Author Organization [employer] Address [address] [place] [address] [address] [place] [address] Care Team Providers Care Pediatric Neurologist Name Role Phone Shruti Campos MD Primary Care Pro vider Reason for Visit * Reason Onset Date Comments Med Refill 06/23/2024 Encounter Details Date Type Department Care Team ([facility] st Contact Info) Description 06/23/2024 Refill [facility] [address] [place] [phone] Shruti Campos MD [address] [place] [phone] Social History Tobacco Use Types Packs/Day Years [...] Description 06/04/2025 1:15 PM EDT Office Visit [facility] [address] [place] [phone] Shruti Campos MD [address] [place] [phone] documented as of this encounter Visit Diagnoses Not on filedocumented in this encounter Additional Health Concerns Assessment Noted Time PHQ-9 Depression Total Score: 18 024 12:25 PM EST documented as of this encounter Care Teams Pediatric Neurologist Relationship Specialty Start Date End Date Shruti Campos MD [address] [place] [address] [phone] PCP - General Internal Medicine 05/11/23 documented as of this encounter
--- OUTSIDE RECORDS SUMMARY | 2025-03-02 17:14 | XMS_ITS | Encounter Summary ---
Author Organization [email or web address] Address [address] [place] [address] [address] [place] [address] Care Team Providers Care Forms Builder Name Role Phone Srhuti Campos MD Primary Care Pro vider Reason for Visit * Reason Onset Date Comments Med Refill 06/23/2024 Encounter Details Date Type Department Care Team ([facility] st Contact Info) Description 06/23/2024 Refill [facility] [address] [place], [place] [phone] Rosana Jaramillo MD [address] [place] [address] Anxiety Social History Tobacco Use Types Packs/Day [...] Description 06/04/2025 1:15 PM EDT Office Visit [facility] [address] [place] [phone] Shruti Campos MD [address] [place] [phone] documented as of this encounter Visit Diagnoses Diagnosis Anxiety Anxiety state, unspecified documented in this encounter Additional Health Concerns Assessment Noted Time PHQ-9 Depression Total Score: 18 024 12:25 PM EST documented as of this encounter Care Teams Forms Builder Relationship Specialty Start Date End Date Shruti Campos MD [address] [place] [phone] PCP - General Internal Medicine 05/11/23 documented as of this encounter
== END 2025-03-02 14:19 | disposition home or self-care (01) ==
LOC: HO.ACS 13:46
PROVIDERS: PCP Student in an Organized Health Care Education/Training Program; Visit Provider Internal Medicine Medical Oncology
DX: Z79.01 Long term (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 (principal)

== ENCOUNTER → 2025-03-02 13:46 | Outpatient (BNVA) | payer MEDICAID, SELFPAY | PROVIDERS: PCP Student in an Organized Health Care Education/Training Program; Visit Provider Internal Medicine Medical Oncology | DX: I48.0 Paroxysmal atrial fibrillation (principal); Z79.01 Long term (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; Z51.81 Encounter for therapeutic drug level monitoring | CPT/HCPCS: 85610; 99211 ==